=== PATIENT | male | born 1950 | race Caucasian/White ===

== ENCOUNTER → 2024-06-30 | Outpatient (CLI) | payer MEDICARE, SELFPAY ==
--- NOTE | 2024-06-30 07:46 | CT_ITS ---
STUDY: CT ABDOMEN AND PELVIS WITHOUT CONTRAST REASON FOR EXAM: Male, 74 years old. POOR FUNCTIONING DIALYSIS CATH RADIATION DOSAGE (If Supplied By Facility): CTDIvol = ( 21.47 ) mGy, DLP = ( 1132.02 ) mGycm TECHNIQUE: Transaxial images were obtained from the dome of the diaphragm to the symphysis pubis without oral contrast, and without intravenous contrast. Sagittal and coronal images were reconstructed. Individualized dose optimization techniques were used for this CT. COMPARISON: None. FINDINGS: Moderate right pleural effusion and tiny left pleural effusion effusion. The visualized portions of the heart are within normal limits. Tiny amount of free fluid in the paracolic gutters. Normal liver. There are multiple gallstones. Normal spleen. Normal pancreas. Normal bilateral adrenal glands. Normal right kidney. Normal left kidney. Normal visualized stomach. Normal small intestine. There are multiple colonic diverticula consistent with diverticulosis. There is non-visualization of the appendix. There is diffuse atherosclerotic calcification of the abdominal aorta, without a demonstrated aneurysm. Normal inferior vena cava. Normal retroperitoneum. Normal urinary bladder. There is enlargement of the prostate gland. Peritoneal dialysis catheter coiled in the pelvis without surrounding fluid collection to suggest pseudocyst. Normal abdominal wall. Normal osseous structures. CT/Abdomen/Pelvis without Cont IMPRESSION: Moderate right pleural effusion and tiny left pleural effusion. Peritoneal dialysis catheter coiled in the pelvis without evidence of pseudocyst. Tiny amount of ascites. Cholelithiasis. Sigmoid diverticulosis without diverticulitis. Electronically Signed: Roel Chen MD at 13:07 EST ,
== END | disposition home or self-care (01) ==
PROVIDERS: PCP Family Medicine; Referring Provider Student in an Organized Health Care Education/Training Program; Visit Provider Student in an Organized Health Care Education/Training Program
DX: T83.89XA Other specified complication of genitourinary prosthetic devices, implants and grafts, initial encounter (principal)
CPT/HCPCS: 74176

== ENCOUNTER → 2024-08-21 | Outpatient (CLI) | payer MEDICARE, SELFPAY ==
--- NOTE | 2024-08-21 10:15 | MRI_ITS ---
STUDY: MRI LUMBAR SPINE WITHOUT CONTRAST REASON FOR EXAM: Male, 74 years old. RADICULOPATHY TECHNIQUE: Standardized fat and water weighted pulse sequences were obtained in the sagittal and axial planes. COMPARISON: None FINDINGS: T12-L1: Normal endplates. Normal disc height, hydration and morphology. Normal bilateral facet joints. Normal central canal and bilateral lateral recesses. Normal bilateral intervertebral neural foramina. Normal lumbar lordosis. There is no substantial scoliosis. Normal conus medullaris that terminates at the L1-2 level. L1-2: Mild annular bulge.. Normal disc height, hydration and morphology. Normal bilateral facet joints. Normal central canal and bilateral lateral recesses. Normal bilateral intervertebral neural foramina. L2-3: Mild annular bulge causing mild trefoil type narrowing the thecal sac and neural foramina bilaterally. L3-4: Moderate annular bulge and hypertrophic facet disease causing moderate trefoil type narrowing of the thecal sac and neural foramina bilaterally. L4-5: Slight anterior subluxation L4-5 with unroofing of the posterior disc. Fluid-filled hypertrophic facets. Severe trefoil type narrowing of the thecal sac and neural foramina bilaterally. L5-S1: Mild compression fracture and bone marrow edema L5 vertebral body. Moderate narrowing of the neural foramina, right greater than left. Central canal patent. Normal visualized sacral ala. Normal visualized paraspinous soft tissue structures. MRI/Spine Lumbar (Routine) IMPRESSION: Acute or subacute compression fracture L5. Grade 1 spondylolisthesis L4-5 and severe spinal stenosis and neural foraminal narrowing at this level. Moderate spinal stenosis also noted at L3-4. Electronically Signed: John Hoyt MD at 0:12 EST ,
== END | disposition home or self-care (01) ==
LOC: MRI 10:05
PROVIDERS: PCP Family Medicine; Referring Provider Anesthesiology Pain Medicine; Visit Provider Anesthesiology Pain Medicine
DX: M54.16 Radiculopathy, lumbar region (principal)
CPT/HCPCS: 72148

== ENCOUNTER 2024-11-05 14:00 | Outpatient (CLI) | payer MEDICARE, SELFPAY ==
--- NOTE | 2024-11-10 09:13 | EKG12_ITS ---
Test Reason : PRE OP Blood Pressure : */* mmHG Vent. Rate : 74 BPM Atrial Rate : 74 BPM P-R Int : 200 ms QRS Dur : 180 ms QT Int : 462 ms P-R-T Axes : 82 137 -26 degrees QTcB Int : 512 ms Normal sinus rhythm Right bundle branch block Cannot rule out Inferior infarct , age undetermined T wave abnormality, consider lateral ischemia Abnormal ECG Confirmed by YURI PAULINO, ALYSSA ([id number]), food editor CLAYTON CABRALES ([id number]) on 11/10/2024 10:29:44 AM Referred By: Hank Luevano Confirmed By: ALYSSA WELCH MD
--- NOTE | 2024-11-10 09:13 | EKG12_ITS ---
Test Reason : PRE OP Blood Pressure : */* mmHG Vent. Rate : 74 BPM Atrial Rate : 74 BPM P-R Int : 200 ms QRS Dur : 180 ms QT Int : 462 ms P-R-T Axes : 82 137 -26 degrees QTcB Int : 512 ms Normal sinus rhythm Right bundle branch block Cannot rule out Inferior infarct , age undetermined T wave abnormality, consider lateral ischemia Abnormal ECG Confirmed by YURI PAULINO, ALYSSA ([id number]), general expeditor CLAYTON CABRALES ([id number]) on 11/10/2024 10:29:44 AM Referred By: Hank Luevano Confirmed By: ALYSSA WELCH MD
[2024-11-10 10:08] LABS: Absolute Lymphocyte Count 0.87 X10^3/uL (0.83-4.51); Absolute Neutrophil Count 6.3 X10^3/uL (2.0-7.7); Basophil# 0.09 X10^3/uL; Eosinophil# 0.51 X10^3/uL; Eosinophils% 5.9 % (0-5); Hemoglobin 15.6 g/dL (13.0-16.5); Lymphocyte # 0.87 X10^3/ul (0.83-4.51); Mean Corp Hgb Conc 32.5 g/dL (32-36); Mean Corpuscular Hgb 31.8 pg (27.0-32.0); Mean Corpuscular Volume 97.8 fL (80-94); Mean Platelet Vol. 10.3 fl (6.2-12.0); Monocyte# 0.89 X10^3/uL; Monocyte% 10.3 % (0-10); NRBC Flagged by Analyzer 0 % (0-5); Neutrophil # 6.29 X10^3/uL (2.7-7.7); Neutrophil % 72.5 % (47-70); Platelet Count 129 K/mm3 (150-450); RBC Distribution Width CV 14.9 % (11.6-14.6); RBC Distribution Width SD 53.6 fl (35.1-43.9); Red Blood Count 4.91 M/mm3 (4.6-6.2); White Blood Count 8.7 K/mm3 (4.4-11.0)
[2024-11-10 16:06] LABS: Hepatitis C Antibody Nonreactive (Nonreactive)
[2024-11-10 18:48] LABS: BUN 62 mg/dL (4-19); BUN/Creat Ratio 19.1 RATIO (10-20); Calcium,Total 8.8 mg/dL (7.6-11.0); Carbon Dioxide 21.7 mmol/L (21.0-32.0); Creatinine, Serum 3.26 mg/dL (0.70-1.20); Glucose 126 mg/dL (70-99); HIV Nonreactive (Nonreactive)
[2024-11-10 18:49] LABS: Anion Gap 14 (5-15); Chloride 102 mmol/L (98-108); EST Glomerular Filtration Rate 19 (>60); Potassium 4.3 mmol/L (3.3-5.1); Sodium Level 138 mmol/L (133-145)
--- NOTE | 2024-11-10 20:18 | PAT.ANESEVAL ---
Pre-Assessment Diagnosis/Proposed Procedure Planned Operative Procedure(s): 360 Lumbar Fusion L3-4 and L4-5, possible cement augmentation Anesthesia History Anesthesia History - naturopath: Anesthesia History - naturopath Hx Hospitalization Yes 11/05/24 15:36 Any Problems With Anesthesia No 11/05/24 15:36 Cholinesterase deficiency No 11/05/24 15:36 You/Your Family Experience No 11/05/24 15:36 fever (hyperthermia) with Relationship Recent Exposure to Contagious Disease Does patient have nerve No 11/05/24 15:36 stimulator Patient instructed to have device shut off --Does patient have Pacemaker or ICD? When Was Last Pacemaker Check QUESTION #4 FULL TEXT: You/Your Family Experience fever (hyperthermia) with Anesthesia Last Oral Intake Last Oral intake: Last Oral Intake NPO since Meds taken in AM with sips of water? Meds patient instructed to take am of surgery PONV PONV - naturopath: PONV - naturopath Female No 11/05/24 15:36 HX of Motion Sickness No 11/05/24 15:36 HX of N/V After Surgery No 11/05/24 15:36 Non-Smoker Yes 11/05/24 15:36 Duration of Surgery greater Yes 11/05/24 15:36 than 60 minutes Number of Risk Factors 2 11/05/24 15:36 PONV Score Moderate Risk 11/05/24 15:36 Height & Weight Height & Weight: Anesthesia: Height & Weight Height 5 ft 11 in 09/15/24 15:03 Respiratory Assessment Respiratory Assessment - naturopath: Respiratory Tract Infection Hx - naturopath Hx Respiratory Tract Infection No 11/05/24 15:36 STOP Sleep Apnea STOP Sleep Apnea - naturopath: STOP Sleep Apnea - naturopath Hx Hypertension Yes: NO MED SINCE DIALYSIS 11/05/24 15:36 Hx Sleep Apnea Yes 11/05/24 15:36 CPAP Yes 11/05/24 15:36 BIPAP No 11/05/24 15:36 Do you snore loudly (louder than talking or can be heard Do you often feel tired/ fatigued/ sleepy during daytime? Has anyone observed you stop breathing during sleep? STOP Results Positive 11/05/24 15:36 QUESTION #5 FULL TEXT : Do you snore loudly (louder than talking or can be heard through closed doors)? 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 Specify any problems Hx of Preganancy in last 3 N/A 11/05/24 15:36 Months Nurse Filling Out Transfusion [facility] 11/05/24 15:36 & Questions: Date: 11/05/24 11/05/24 15:36 Time: 15:39 11/05/24 15:36 Patient unable to answer at this time (ie. confused, unrespo /Reproduction History /Reproductive History - naturopath: /Reproductive Hx- naturopath Hx Now No 11/05/24 15:36 Gestational Age (in weeks): EDC: Hx Hx Para Hx Section SAB No 11/05/24 15:36 [facility] Medical History (Updated 11/05/24 @ 15:48 by Marcela Negrete) Wears hearing aid Loss of hearing Wears glasses Walker as ambulation aid End stage chronic kidney disease History of renal dialysis History of renal disease High cholesterol Back pain Syncope Former smoker CPAP (continuous positive airway pressure) dependence Sleep apnea Leg cramps History of echocardiogram History of stress test Cardiology follow-up encounter Hypertension Kidney failure Dialysis patient Congestive heart failure Amputation of right foot Diabetes Home Medications ?Medication ?Instructions ?Recorded ?Last Taken ?Type allopurinol 300 mg tablet 300 mg PO DAILY gout 09/15/24 Unknown History atorvastatin 80 mg tablet 80 mg PO QHS HLD 09/15/24 Unknown History carvedilol 6.25 mg tablet 6.25 mg PO BID HEART 09/15/24 Unknown History cholecalciferol (vitamin D3) 25 25 mcg PO QDAY SUPPLEMENT 09/15/24 Unknown History mcg (1,000 unit) tablet clopidogrel 75 mg tablet 300 mg PO DAILY BLOOD THINNER 09/15/24 Unknown History dapagliflozin propanediol 10 mg 10 mg PO DAILY DIABETES 09/15/24 Unknown History tablet (Farxiga) insulin glargine 100 unit/mL 12 unit subcut BID DM 09/15/24 Unknown History subcutaneous solution (Lantus U-100 Insulin) insulin lispro 100 unit/mL 6 unit subcut BID DM 09/15/24 Unknown History subcutaneous solution (Humalog U-100 Insulin) tamsulosin 0.4 mg capsule 0.4 mg PO DAILY BPH 09/15/24 Unknown History tramadol 50 mg tablet 50 mg PO DAILY PAIN 09/15/24 Unknown History multivitamin (Daily Multi-Vitamin 1 tab PO DAILY SUPPLEMENT 11/05/24 Unknown History tablet) Allergy/AdvReac Type Severity Reaction Status Date / Time aspirin Allergy Flares up Verified 11/05/24 15:29 heart Family History Other Diabetes Surgical History (Updated 11/05/24 @ 15:48 by Marcela Negrete) History of cardiac catheterization Social History Smoking Status: Former smoker Audit: Pertinent Findings Pertinent Findings EKG Perinent findings: November 10, 2024. Normal sinus rhythm. Right bundle branch block. Cannot rule out inferior infarct, age undetermined. T wave abnormality consider lateral ischemia. August 27, 2024. Normal sinus rhythm. Right bundle branch block. Possible inferior infarct, age undetermined. Compared to September 2023 T wave inversions now evident in inferior leads. Heart catheterization pertinent findings: October 30, 2023. 60% narrowing of the mid LAD. 80% narrowing of the mid left circumflex. 80% narrowing of the mid RCA. No stents were placed. CABG was indicated. Patient declined. Consult pertinent findings: August 27, 2024. Arturo ABURTO. 1. Three-vessel coronary artery disease-cardiac cath as above. CABG was indicated. Patient declined due to poor surgical candidate related to many comorbidities. Patient elected medical therapy. 2. Carotid artery stenosis-right internal carotid at 60 to 79% stenosis. 3. Chronic kidney failure?stage IV 4. COPD 5. Diabetes type 2 Additional pertinent findings: October 26, 2023. Carotid duplex ultrasound. DIYA at 60 to 79% stenosis. Left internal carotid 20 to 39% stenosis. Recommendation Anesthesia Recommendation Anesthesia recommendation: Anesthesia NOT approved Reason NOT optimized for anesthesia: October 30, 2023. 60% narrowing of the mid LAD. 80% narrowing of the mid left circumflex. 80% narrowing of the mid RCA. No stents were placed. CABG was indicated. Patient declined. Patient is an untreated coronary vasculopath with current ischemia on his EKG.
--- NOTE | 2024-11-10 20:18 | PAT.ANESEVAL ---
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 When Was Last Pacemaker Check QUESTION #4 FULL TEXT: You/Your Family Experience fever (hyperthermia) with Anesthesia Last Oral Intake Last Oral intake: Last Oral Intake NPO since Meds taken in AM with sips of water? 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 Female No 11/05/24 15:36 HX of Motion Sickness No 11/05/24 15:36 HX of N/V After Surgery No 11/05/24 15:36 Non-Smoker Yes 11/05/24 15:36 Duration of Surgery greater Yes 11/05/24 15:36 than 60 minutes Number of Risk Factors 2 11/05/24 15:36 PONV Score Moderate Risk 11/05/24 15:36 Height & Weight Height & Weight: Anesthesia: Height & Weight Height 5 ft 11 in 09/15/24 15:03 Respiratory Assessment Respiratory Assessment - oil well fishing tool technician: Respiratory Tract Infection Hx - oil well fishing tool technician Hx Respiratory Tract Infection No 11/05/24 15:36 STOP Sleep Apnea STOP Sleep Apnea - oil well fishing tool technician: STOP Sleep Apnea - oil well fishing tool technician Hx Hypertension Yes: NO MED SINCE DIALYSIS 11/05/24 15:36 Hx Sleep Apnea Yes 11/05/24 15:36 CPAP Yes 11/05/24 15:36 BIPAP No 11/05/24 15:36 Do you snore loudly (louder than talking or can be heard Do you often feel tired/ fatigued/ sleepy during daytime? Has anyone observed you stop breathing during sleep? STOP Results Positive 11/05/24 15:36 QUESTION #5 FULL TEXT : Do you snore loudly (louder than talking or can be heard through closed doors)? 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 Specify any problems Hx of Preganancy in last 3 N/A 11/05/24 15:36 Months Nurse Filling Out Transfusion [facility] 11/05/24 15:36 & Questions: Date: 11/05/24 11/05/24 15:36 Time: 15:39 11/05/24 15:36 Patient unable to answer at this time (ie. 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: /Reproductive Hx- oil well fishing tool technician Hx Now No 11/05/24 15:36 Gestational Age (in weeks): EDC: Hx Hx Para Hx Section SAB No 11/05/24 15:36 [facility] Medical History (Updated 11/05/24 @ 15:48 by Marcela Negrete) Wears hearing aid Loss of hearing Wears glasses Walker as ambulation aid End stage chronic kidney disease History of renal dialysis History of renal disease High cholesterol Back pain Syncope Former smoker CPAP (continuous positive airway pressure) dependence Sleep apnea Leg cramps History of echocardiogram History of stress test Cardiology follow-up encounter Hypertension Kidney failure Dialysis patient Congestive heart failure Amputation of right foot Diabetes Home Medications ?Medication ?Instructions ?Recorded ?Last Taken ?Type allopurinol 300 mg tablet 300 mg PO DAILY gout 09/15/24 Unknown History atorvastatin 80 mg tablet 80 mg PO QHS HLD 09/15/24 Unknown History carvedilol 6.25 mg tablet 6.25 mg PO BID HEART 09/15/24 Unknown History cholecalciferol (vitamin D3) 25 25 mcg PO QDAY SUPPLEMENT 09/15/24 Unknown History mcg (1,000 unit) tablet clopidogrel 75 mg tablet 300 mg PO DAILY BLOOD THINNER 09/15/24 Unknown History dapagliflozin propanediol 10 mg 10 mg PO DAILY DIABETES 09/15/24 Unknown History tablet (Farxiga) insulin glargine 100 unit/mL 12 unit subcut BID DM 09/15/24 Unknown History subcutaneous solution (Lantus U-100 Insulin) insulin lispro 100 unit/mL 6 unit subcut BID DM 09/15/24 Unknown History subcutaneous solution (Humalog U-100 Insulin) tamsulosin 0.4 mg capsule 0.4 mg PO DAILY BPH 09/15/24 Unknown History tramadol 50 mg tablet 50 mg PO DAILY PAIN 09/15/24 Unknown History multivitamin (Daily Multi-Vitamin 1 tab PO DAILY SUPPLEMENT 11/05/24 Unknown History tablet) Allergy/AdvReac Type Severity Reaction Status Date / Time aspirin Allergy Flares up Verified 11/05/24 15:29 heart Family History Other Diabetes Surgical History (Updated 11/05/24 @ 15:48 by Marcela Negrete) History of cardiac catheterization Social History Smoking Status: Former smoker Audit: Pertinent Findings Pertinent Findings EKG Perinent findings: November 10, 2024. Normal sinus rhythm. Right bundle branch block. Cannot rule out inferior infarct, age undetermined. T wave abnormality consider lateral ischemia. August 27, 2024. Normal sinus rhythm. Right bundle branch block. Possible inferior infarct, age undetermined. Compared to September 2023 T wave inversions now evident in inferior leads. Heart catheterization pertinent findings: October 30, 2023. 60% narrowing of the mid LAD. 80% narrowing of the mid left circumflex. 80% narrowing of the mid RCA. No stents were placed. CABG was indicated. Patient declined. Consult pertinent findings: August 27, 2024. Arturo ABURTO. 1. Three-vessel coronary artery disease-cardiac cath as above. CABG was indicated. Patient declined due to poor surgical candidate related to many comorbidities. Patient elected medical therapy. 2. Carotid artery stenosis-right internal carotid at 60 to 79% stenosis. 3. Chronic kidney failure?stage IV 4. COPD 5. Diabetes type 2 Additional pertinent findings: October 26, 2023. Carotid duplex ultrasound. DIYA at 60 to 79% stenosis. Left internal carotid 20 to 39% stenosis. Recommendation Anesthesia Recommendation Anesthesia recommendation: Anesthesia NOT approved Reason NOT optimized for anesthesia: October 30, 2023. 60% narrowing of the mid LAD. 80% narrowing of the mid left circumflex. 80% narrowing of the mid RCA. No stents were placed. CABG was indicated. Patient declined. Patient is an untreated coronary vasculopath with current ischemia on his EKG.
[2024-11-10 20:51] LABS: Hepatitis B Surface Antibody Nonreactive
[2024-11-11 05:06] LABS: Hepatitis A AB, Total Negative (Negative)
[2024-11-11 12:22] LABS: Hemoglobin A1c 8.7 % (<=5.6)
== END 2024-11-05 19:00 | disposition home or self-care (01) ==
LOC: SDC 06-17 12:21
PROVIDERS: Anesthesiology; PCP Family Medicine; Referring Provider Orthopaedic Surgery Orthopaedic Surgery of the Spine; Visit Provider Orthopaedic Surgery Orthopaedic Surgery of the Spine
DX: Z01.818 Encounter for other preprocedural examination (principal); N18.6 End stage renal disease; E11.22 Type 2 diabetes mellitus with diabetic chronic kidney disease
CPT/HCPCS: 36415; 80048; 83036; 83735; 85025; 86703; 86706; 86708; 86803; 86850; 86900; 86901; 87081; 93005

== ENCOUNTER 2025-06-09 10:47 | Outpatient (CLI) | payer MEDICARE, SELFPAY ==
--- NOTE | 2025-06-09 10:49 | VDUE_ITS ---
Reason For Study Reason For Study: Pre -op AVF Right Lower Arm Left Arm Proximal Radial artery diameter 0.15 x 0.17 mm. Left Brachial artery diameter 0.43 x 0.45 mm. Proximal Radial artery waveform is biphasic . Left Brachial artery waveform is triphasic . Radial A PSV - 20.8 cm/s Brachial A PSV - 64.7 cm/s. Heterogenous irregular plaque noted throughout Radial Cephalic Vein at distal forearm measures 0.22 x 0.22 Artery. cm. Right Arm Cephalic Vein at mid forearm measures 0.23 x 0.26 cm. Right Brachial artery diameter 0.48 x 0.46 mm. Cephalic Vein proximal forearm measures 0.15 x 0.17 Right Brachial artery waveform is triphasic . cm. Brachial A PSV - 47.1 cm/s. Cephalic Vein distal upper arm measures 0.49 x 0.53 Cephalic Vein at distal forearm measures 0.15 x 0.14 cm. cm. Cephalic Vein at mid upper arm measures 0.47 x 0.48 Cephalic Vein at mid forearm measures 0.19 x 0.22 cm. cm. Cephalic Vein proximal forearm measures 0.15 x 0.17 Cephalic Vein at proximal upper arm measures 0.40 x cm. 0.44 cm. Cephalic Vein distal upper arm measures 0.43 x 0.46 Mid Basilic vein measures 0.52 x 0.54 cm. cm. Proximal Basilic vein measures 0.45 x 0.44 cm. Cephalic vein at mid upper arm depth measures 0.40 x Distal Basilic vein measures 0.38 x 0.41 cm. 0.40 cm. Left Lower Arm Cephalic Vein at mid upper arm measures 0.43 x 0.41 Proximal Radial artery diameter 0.14 x 0.16 mm. cm. Proximal Radial artery waveform is triphasic . Proximal Basilic vein depth measures 0.42 x 0.47 cm. Radial A PSV - 43.5 cm/s Mid Basilic vein depth measures 0.41 x 0.43 cm. Heterogenous irregular plaque noted throughout Radial Distal Basilic vein depth measures 0.22 x 0.20 cm. Artery. Procedure This was a bilateral upper extremity venous doppler examination. Exam performed in department. The exam was diagnostic. VL/Dialysis Vein Map PRE-OP BILAT Interpretation Summary Bilateral upper extremity veins patent with measurements above. Bilateral upper extremity veins patent with normal waveforms and measurements a ede. Ordering Physician: Dolores Welsh Referring Physician: Jt Martin Performed By: Param Mosley RVT and Student ???
== END 2025-06-09 23:59 | disposition home or self-care (01) ==
LOC: CVS 10:48
PROVIDERS: PCP Family Medicine; Referring Provider Student in an Organized Health Care Education/Training Program; Visit Provider Student in an Organized Health Care Education/Training Program
DX: Z01.818 Encounter for other preprocedural examination (principal); N17.9 Acute kidney failure, unspecified
CPT/HCPCS: 93985

== ENCOUNTER 2025-07-13 05:52 | Day surgery (SDC) | payer MEDICARE, SELFPAY ==
--- NOTE | 2025-07-01 10:00 | PAT.ANE_ITS ---
Pre-Assessment Diagnosis/Proposed Procedure Planned Operative Procedure(s): RIGHT ARM AV CREATION Anesthesia History Anesthesia History - bed bug exterminator: Anesthesia History - bed bug exterminator Hx Hospitalization Yes: 06/22/25 FOR BRONCHITIS 06/30/25 14:33 Any Problems With Anesthesia Yes: NAUSEA AND DIZZY 06/30/25 14:33 Cholinesterase deficiency No 06/30/25 14:33 You/Your Family Experience No 06/30/25 14:33 fever (hyperthermia) with Relationship Recent Exposure to Contagious Disease Does patient have nerve No 06/30/25 14:33 stimulator Patient instructed to have device shut off --Does patient have Pacemaker or ICD? When Was Last Pacemaker Check QUESTION #4 FULL TEXT: You/Your Family Experience fever (hyperthermia) with Anesthesia Last Oral Intake Last Oral intake: Last Oral Intake NPO since Meds taken in AM with sips of water? Meds patient instructed to take am of surgery PONV PONV - bed bug exterminator: PONV - bed bug exterminator Female No 06/30/25 14:33 HX of Motion Sickness No 06/30/25 14:33 HX of N/V After Surgery No 06/30/25 14:33 Non-Smoker Yes 06/30/25 14:33 Duration of Surgery greater Yes 06/30/25 14:33 than 60 minutes Number of Risk Factors 2 06/30/25 14:33 PONV Score Moderate Risk 06/30/25 14:33 Height & Weight Height & Weight: Anesthesia: Height & Weight Height 5 ft 11 in 06/17/25 15:52 Respiratory Assessment Respiratory Assessment - bed bug exterminator: Respiratory Tract Infection Hx - bed bug exterminator Hx Respiratory Tract Infection No 06/30/25 14:33 STOP Sleep Apnea STOP Sleep Apnea - bed bug exterminator: STOP Sleep Apnea - bed bug exterminator Hx Hypertension Yes: MANY YRS AGO 06/30/25 14:33 Hx Sleep Apnea Yes 06/30/25 14:33 CPAP Yes 06/30/25 14:33 BIPAP No 06/30/25 14:33 Do you snore loudly (louder than talking or can be heard Do you often feel tired/ fatigued/ sleepy during daytime? Has anyone observed you stop breathing during sleep? STOP Results Positive 06/30/25 14:33 QUESTION #5 FULL TEXT : Do you snore loudly (louder than talking or can be heard through closed doors)? Tobacco Use History Tobacco Use History - bed bug exterminator: Tobacco Use History - bed bug exterminator Tobacco Use Smoking Status Former smoker 06/30/25 14:33 Hx Tobacco Use No 06/30/25 14:33 Years Smoking Packs Smoked per Day Smoking Cessation Date was No - quit smoking greater 06/30/25 14:33 within the last 15 years than 15 years ago Hx Smoking Cessation Date 08/20/79 06/30/25 14:33 Hx Smoking Cessation No 06/30/25 14:33 Counseling Hematologic Medial History Hematologic Hx - bed bug exterminator: Hematologic Medical Hx - medicare contact specialist Hx of Blood Transfusion No 06/30/25 14:33 Hx of Transfusion in last 3 No 06/30/25 14:33 Months Date of Last Transfusion (if within last 3 months) Ever experience any problems No 06/30/25 14:33 with transfusion(s)? Specify any problems Hx of Preganancy in last 3 N/A 06/30/25 14:33 Months Nurse Filling Out Transfusion DSCHRIBER 06/30/25 14:33 & Questions: Date: 06/30/25 06/30/25 14:33 Time: 14:35 06/30/25 14:33 Patient unable to answer at this time (ie. confused, unrespo /Reproduction History /Reproductive History - bed bug exterminator: /Reproductive Hx- bed bug exterminator Hx Now No 06/30/25 14:33 Gestational Age (in weeks): EDC: Hx Hx Para Hx Section SAB No 06/30/25 14:33 Does the father of the baby or his family experience fever w Father of the baby Malignant Hypertension history comment [facility] [place] Medical History (Updated 06/30/25 @ 14:46 by Kirstin Aguiar) Insulin dependent diabetes mellitus Low iron Restless legs Injury of back Dietary restriction Gastric reflux On home oxygen therapy Shortness of breath on exertion History of pain when walking History of pacemaker Wears hearing aid Wears glasses Walker as ambulation aid History of renal dialysis History of renal disease High cholesterol Syncope Former smoker CPAP (continuous positive airway pressure) dependence Leg cramps History of echocardiogram History of stress test Cardiology follow-up encounter Hypertension Kidney failure Dialysis patient Congestive heart failure Amputation of right foot Home Medications ?Medication ?Instructions ?Recorded ?Last Taken ?Type atorvastatin 80 mg tablet 80 mg PO QHS HLD 09/15/24 Un known History cholecalciferol (vitamin D3) 25 25 mcg PO QDAY SUPPLEM ENT 09/15/24 Unknown History mcg (1,000 unit) tablet insulin glargine 100 unit/mL 12 unit subcut BID DM Unknown History subcutaneous solution (Lantus U-100 Insulin) insulin lispro 100 unit/mL 6 unit subcut BID DM Unknown History subcutaneous solution (Humalog U-100 Insulin) tamsulosin 0.4 mg capsule 0.4 mg PO QHS BPH 09/15/24 U nknown History multivitamin (Daily Multi-Vitamin 1 tab PO DAILY SUPPL EMENT 11/05/24 Unknown History tablet) aspirin 81 mg tablet,delayed 81 mg PO QDAY 06/17/25 Un known History release (Adult Aspirin Regimen) clopidogrel 75 mg tablet 75 mg PO DAILY BLOOD THINNER 06/17/25 Unknown History pantoprazole 20 mg tablet,delayed 20 mg PO QDAY Unknown History release karlos-rissa 1 tab PO QDAY 06/17/25 Unkno wn History albuterol sulfate 90 mcg/actuation 1 inh inhalation Q4 H PRN shortness 06/30/25 Unknown History aerosol inhaler (Ventolin HFA) of breath or wheezing sulfamethoxazole 800 1 tab PO Q12H 06/30/25 Unkno wn History mg-trimethoprim 160 mg tablet Allergy/AdvReac Type Severity Reaction Status Date / Time aspirin Allergy Flares up Verified 06/30/25 14:28 heart Family History Other Diabetes Surgical History (Updated 06/30/25 @ 14:46 by Kirstin Aguiar) Hx of right cataract extraction Hx of left cataract extraction Hx of foot surgery History of implantable cardiac defibrillator (ICD) History of open heart surgery History of cardiac catheterization Social History Smoking Status: Former smoker Audit: Pertinent Findings HISTORY of Pertinent Findings History of Pertinent Findings: Patient had CABG + valve repair on 01/06/25. Pacer - ICD for complete heart block placed 05/26/2025 Pertinent Findings EKG Perinent findings: 05/2025: Ventricular paced rhythm Stress test pertinent findings: 11/2024: Negative stress test Echo (EF%) pertinent findings: 05/2025: EF 32%, moderately severe MVR, LV mildly dilated,, mild concentric LVH. 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 LV moderately dilated, systolic function severely decreased. RV mildly dilated. Additional pertinent findings: Right ICA 60-79% stenosis, Left 20-39% Recommendation Anesthesia Recommendation Anesthesia recommendation: F/U recommended (Cardiac clearance for procedure)
--- NOTE | 2025-07-08 15:26 | PAT.ANESEVAL ---
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 When Was Last Pacemaker Check QUESTION #4 FULL TEXT: You/Your Family Experience fever (hyperthermia) with Anesthesia Last Oral Intake Last Oral intake: Last Oral Intake NPO since Meds taken in AM with sips of water? Meds patient instructed to take am of surgery PONV PONV - registered nurses: PONV - registered nurses Female No 06/30/25 14:33 HX of Motion Sickness No 06/30/25 14:33 HX of N/V After Surgery No 06/30/25 14:33 Non-Smoker Yes 06/30/25 14:33 Duration of Surgery greater Yes 06/30/25 14:33 than 60 minutes Number of Risk Factors 2 06/30/25 14:33 PONV Score Moderate Risk 06/30/25 14:33 Height & Weight Height & Weight: Anesthesia: Height & Weight Height 5 ft 11 in 06/17/25 15:52 Respiratory Assessment Respiratory Assessment - registered nurses: Respiratory Tract Infection Hx - registered nurses Hx Respiratory Tract Infection No 06/30/25 14:33 STOP Sleep Apnea STOP Sleep Apnea - registered nurses: STOP Sleep Apnea - registered nurses Hx Hypertension Yes: MANY YRS AGO 06/30/25 14:33 Hx Sleep Apnea Yes 06/30/25 14:33 CPAP Yes 06/30/25 14:33 BIPAP No 06/30/25 14:33 Do you snore loudly (louder than talking or can be heard Do you often feel tired/ fatigued/ sleepy during daytime? Has anyone observed you stop breathing during sleep? STOP Results Positive 06/30/25 14:33 QUESTION #5 FULL TEXT : Do you snore loudly (louder than talking or can be heard through closed doors)? Tobacco Use History Tobacco Use History - registered nurses: Tobacco Use History - registered nurses Tobacco Use Smoking Status Former smoker 06/30/25 14:33 Hx Tobacco Use No 06/30/25 14:33 Years Smoking Packs Smoked per Day Smoking Cessation Date was No - quit smoking greater 06/30/25 14:33 within the last 15 years than 15 years ago Hx Smoking Cessation Date 08/20/79 06/30/25 14:33 Hx Smoking Cessation No 06/30/25 14:33 Counseling Hematologic Medial History Hematologic Hx - registered nurses: Hematologic Medical Hx - training and documentation specialist Hx of Blood Transfusion No 06/30/25 14:33 Hx of Transfusion in last 3 No 06/30/25 14:33 Months Date of Last Transfusion (if within last 3 months) Ever experience any problems No 06/30/25 14:33 with transfusion(s)? Specify any problems Hx of Preganancy in last 3 N/A 06/30/25 14:33 Months Nurse Filling Out Transfusion DSCHRIBER 06/30/25 14:33 & Questions: Date: 06/30/25 06/30/25 14:33 Time: 14:35 06/30/25 14:33 Patient unable to answer at this time (ie. confused, unrespo /Reproduction History /Reproductive History - registered nurses: /Reproductive Hx- registered nurses Hx Now No 06/30/25 14:33 Gestational Age (in weeks): EDC: Hx Hx Para Hx Section SAB No 06/30/25 14:33 Does the father of the baby or his family experience fever w Father of the baby Malignant Hypertension history comment [facility] Medical History (Updated 06/30/25 @ 14:46 by Kirstin Aguiar) Insulin dependent diabetes mellitus Low iron Restless legs Injury of back Dietary restriction Gastric reflux On home oxygen therapy Shortness of breath on exertion History of pain when walking History of pacemaker Wears hearing aid Wears glasses Walker as ambulation aid History of renal dialysis History of renal disease High cholesterol Syncope Former smoker CPAP (continuous positive airway pressure) dependence Leg cramps History of echocardiogram History of stress test Cardiology follow-up encounter Hypertension Kidney failure Dialysis patient Congestive heart failure Amputation of right foot Home Medications ?Medication ?Instructions ?Recorded ?Last Taken ?Type atorvastatin 80 mg tablet 80 mg PO QHS HLD 09/15/24 Unknown History cholecalciferol (vitamin D3) 25 25 mcg PO QDAY SUPPLEMENT 09/15/24 Unknown History mcg (1,000 unit) tablet insulin glargine 100 unit/mL 12 unit subcut BID DM 09/15/24 Unknown History subcutaneous solution (Lantus U-100 Insulin) insulin lispro 100 unit/mL 6 unit subcut BID DM 09/15/24 Unknown History subcutaneous solution (Humalog U-100 Insulin) tamsulosin 0.4 mg capsule 0.4 mg PO QHS BPH 09/15/24 Unknown History multivitamin (Daily Multi-Vitamin 1 tab PO DAILY SUPPLEMENT 11/05/24 Unknown History tablet) aspirin 81 mg tablet,delayed 81 mg PO QDAY 06/17/25 Unknown History release (Adult Aspirin Regimen) clopidogrel 75 mg tablet 75 mg PO DAILY BLOOD THINNER 06/17/25 Unknown History pantoprazole 20 mg tablet,delayed 20 mg PO QDAY 06/17/25 Unknown History release kalros-rissa 1 tab PO QDAY 06/17/25 Unknown History albuterol sulfate 90 mcg/actuation 1 inh inhalation Q4H PRN shortness 06/30/25 Unknown History aerosol inhaler (Ventolin HFA) of breath or wheezing sulfamethoxazole 800 1 tab PO Q12H 06/30/25 Unknown History mg-trimethoprim 160 mg tablet Allergy/AdvReac Type Severity Reaction Status Date / Time aspirin Allergy Flares up Verified 06/30/25 14:28 heart Family History Other Diabetes Surgical History (Updated 06/30/25 @ 14:46 by Kirstin Aguiar) Hx of right cataract extraction Hx of left cataract extraction Hx of foot surgery History of implantable cardiac defibrillator (ICD) History of open heart surgery History of cardiac catheterization Social History Smoking Status: Former smoker Audit: Pertinent Findings HISTORY of Pertinent Findings History of Pertinent Findings: EKG Pertinent Findings EKG Perinent findings 05/2025: Ventricular paced 07/01/25 10:08 rhythm Stress Test Pertinent Findings Stress test pertinent findings 11/2024: Negative stress test 07/01/25 10:08 Echo Pertinent Findings Echo (EF%) pertinent findings 05/2025: EF 32%, moderately 07/01/25 10:08 severe MVR, LV mildly dilated,, mild concentric LVH. Severe multivessel CAD with elevated biventricular filling pressures with both pre and post-capillary pulm HTN Heart Catheterization Pertinent Findings Heart catheterization 11/2024: LHC showed: LAD 07/01/25 10:08 pertinent findings narrow 70% focal disease, LCx 80%, RCA 70% blockages Consult Pertinent Findings Consult pertinent findings 12/2024: Moderate ischemia in 07/01/25 10:08 LCX, mild ischemia in LAD and RCA, and transient ischemic dilation of LV cavity with stress. LV moderately dilated, systolic function severely decreased . RV mildly dilated. Additional Pertinent Findings Additional pertinent findings Right ICA 60-79% stenosis, 07/01/25 10:08 Left 20-39% Pertinent Findings Consult pertinent findings: 07/02/2025. Dr. Alexander?cardiology. Patient is cleared for scheduled procedure with MAC anesthesia. No further testing needed. Recommendation Anesthesia Recommendation Anesthesia recommendation: OPTIMIZED for anesthesia
--- NOTE | 2025-07-10 15:16 | PAT.ANE_ITS ---
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 When Was Last Pacemaker Check QUESTION #4 FULL TEXT: You/Your Family Experience fever (hyperthermia) with Anesthesia Last Oral Intake Last Oral intake: Last Oral Intake NPO since Meds taken in AM with sips of water? Meds patient instructed to take am of surgery PONV PONV - cover mat machine operator: PONV - cover mat machine operator Female No 06/30/25 14:33 HX of Motion Sickness No 06/30/25 14:33 HX of N/V After Surgery No 06/30/25 14:33 Non-Smoker Yes 06/30/25 14:33 Duration of Surgery greater Yes 06/30/25 14:33 than 60 minutes Number of Risk Factors 2 06/30/25 14:33 PONV Score Moderate Risk 06/30/25 14:33 Height & Weight Height & Weight: Anesthesia: Height & Weight Height 5 ft 11 in 06/17/25 15:52 Respiratory Assessment Respiratory Assessment - cover mat machine operator: Respiratory Tract Infection Hx - cover mat machine operator Hx Respiratory Tract Infection No 06/30/25 14:33 STOP Sleep Apnea STOP Sleep Apnea - cover mat machine operator: STOP Sleep Apnea - cover mat machine operator Hx Hypertension Yes: MANY YRS AGO 06/30/25 14:33 Hx Sleep Apnea Yes 06/30/25 14:33 CPAP Yes 06/30/25 14:33 BIPAP No 06/30/25 14:33 Do you snore loudly (louder than talking or can be heard Do you often feel tired/ fatigued/ sleepy during daytime? Has anyone observed you stop breathing during sleep? STOP Results Positive 06/30/25 14:33 QUESTION #5 FULL TEXT : Do you snore loudly (louder than talking or can be heard through closed doors)? Tobacco Use History Tobacco Use History - cover mat machine operator: Tobacco Use History - cover mat machine operator Tobacco Use Smoking Status Former smoker 06/30/25 14:33 Hx Tobacco Use No 06/30/25 14:33 Years Smoking Packs Smoked per Day Smoking Cessation Date was No - quit smoking greater 06/30/25 14:33 within the last 15 years than 15 years ago Hx Smoking Cessation Date 08/20/79 06/30/25 14:33 Hx Smoking Cessation No 06/30/25 14:33 Counseling Hematologic Medial History Hematologic Hx - cover mat machine operator: Hematologic Medical Hx - rn clinical documentation specialist Hx of Blood Transfusion No 06/30/25 14:33 Hx of Transfusion in last 3 No 06/30/25 14:33 Months Date of Last Transfusion (if within last 3 months) Ever experience any problems No 06/30/25 14:33 with transfusion(s)? Specify any problems Hx of Preganancy in last 3 N/A 06/30/25 14:33 Months Nurse Filling Out Transfusion DSCHRIBER 06/30/25 14:33 & Questions: Date: 06/30/25 06/30/25 14:33 Time: 14:35 06/30/25 14:33 Patient unable to answer at this time (ie. confused, unrespo /Reproduction History /Reproductive History - cover mat machine operator: /Reproductive Hx- cover mat machine operator Hx Now No 06/30/25 14:33 Gestational Age (in weeks): EDC: Hx Hx Para Hx Section SAB No 06/30/25 14:33 Does the father of the baby or his family experience fever w Father of the baby Malignant Hypertension history comment Active Medications Active Medications: Current Medications Generic Name Dose Route Start Last Admin Trade Name Freq PRN Reason Stop Dose Admin Cefazolin Sodium 3 gm/ Sodium 115 mls @ 200 mls/hr 07/13/25 07:00 Chloride IV 07/13/25 07:34 INTRAOP ONE [facility] Medical History (Updated 06/30/25 @ 14:46 by Kirstin Aguiar) Insulin dependent diabetes mellitus Low iron Restless legs Injury of back Dietary restriction Gastric reflux On home oxygen therapy Shortness of breath on exertion History of pain when walking History of pacemaker Wears hearing aid Wears glasses Walker as ambulation aid History of renal dialysis History of renal disease High cholesterol Syncope Former smoker CPAP (continuous positive airway pressure) dependence Leg cramps History of echocardiogram History of stress test Cardiology follow-up encounter Hypertension Kidney failure Dialysis patient Congestive heart failure Amputation of right foot Home Medications ?Medication ?Instructions ?Recorded ?Last Taken ?Type atorvastatin 80 mg tablet 80 mg PO QHS HLD 09/15/24 Un known History cholecalciferol (vitamin D3) 25 25 mcg PO QDAY SUPPLEM ENT 09/15/24 Unknown History mcg (1,000 unit) tablet insulin glargine 100 unit/mL 12 unit subcut BID DM Unknown History subcutaneous solution (Lantus U-100 Insulin) insulin lispro 100 unit/mL 6 unit subcut BID DM Unknown History subcutaneous solution (Humalog U-100 Insulin) tamsulosin 0.4 mg capsule 0.4 mg PO QHS BPH 09/15/24 U nknown History multivitamin (Daily Multi-Vitamin 1 tab PO DAILY SUPPL EMENT 11/05/24 Unknown History tablet) aspirin 81 mg tablet,delayed 81 mg PO QDAY 06/17/25 Un known History release (Adult Aspirin Regimen) clopidogrel 75 mg tablet 75 mg PO DAILY BLOOD THINNER 06/17/25 Unknown History pantoprazole 20 mg tablet,delayed 20 mg PO QDAY Unknown History release karlos-rissa 1 tab PO QDAY 06/17/25 Unkno wn History albuterol sulfate 90 mcg/actuation 1 inh inhalation Q4 H PRN shortness 06/30/25 Unknown History aerosol inhaler (Ventolin HFA) of breath or wheezing sulfamethoxazole 800 1 tab PO Q12H 06/30/25 Unkno wn History mg-trimethoprim 160 mg tablet Allergy/AdvReac Type Severity Reaction Status Date / Time aspirin Allergy Flares up Verified 06/30/25 14:28 heart Family History Other Diabetes Surgical History (Updated 06/30/25 @ 14:46 by Kirstin Aguiar) Hx of right cataract extraction Hx of left cataract extraction Hx of foot surgery History of implantable cardiac defibrillator (ICD) History of open heart surgery History of cardiac catheterization Social History Smoking Status: Former smoker Audit: Pertinent Findings HISTORY of Pertinent Findings History of Pertinent Findings: EKG Pertinent Findings EKG Perinent findings 05/2025: Ventricular paced 07/01/25 10:08 rhythm Stress Test Pertinent Findings Stress test pertinent findings 11/2024: Negative stress test 07/01/25 10:08 Echo Pertinent Findings Echo (EF%) pertinent findings 05/2025: EF 32%, moderately 07/01/25 10:08 severe MVR, LV mildly dilated,, mild concentric LVH. Severe multivessel CAD with elevated biventricular filling pressures with both pre and post-capillary pulm HTN Heart Catheterization Pertinent Findings Heart catheterization 11/2024: LHC showed: LAD 07/01/25 10:08 pertinent findings narrow 70% focal disease, LCx 80%, RCA 70% blockages Consult Pertinent Findings Consult pertinent findings 07/02/2025. Dr. Alexander? 07/08/25 15:35 cardiology. Patient is cleared for scheduled procedure with MAC anesthesia. No further testing needed. Consult pertinent findings 12/2024: Moderate ischemia in 07/01/25 10:08 LCX, mild ischemia in LAD and RCA, and transient ischemic dilation of LV cavity with stress. LV moderately dilated, systolic function severely decreased . RV mildly dilated. Additional Pertinent Findings Additional pertinent findings Right ICA 60-79% stenosis, 07/01/25 10:08 Left 20-39% Recommendation Anesthesia Recommendation Anesthesia recommendation: OPTIMIZED for anesthesia
[2025-07-13] VITALS (27 sets, daily range): BP systolic 81–114; BP diastolic 31–64; PULSE 82–92; RESP 12–24; TEMP 36.1–36.8; O2SAT 92–99; BMI 34.5
--- OUTSIDE RECORDS SUMMARY | 2025-07-13 05:58 | XMS RPT_ITS | CCD ---
Author Organization [facility] Care Team Providers Care Branch Specialist Name Role Phone Moises Prater Primary Care Provider MOISES PRATER Primary Care Unavailable Rakan Amaro Admitting Rakan Henry Attending Moises Olson Primary Care Provider Moises Prater Primary Care Provider 1( [phone] Moises Prater Primary Care Provider 1( [phone] MOI PAULINO, DR MOISES Castillo Primary Care Physician Moises Prater Primary Care Provider DOMINGA PAULINO, DR BECERRA Attending Elo NIX MD, DR MONTEZ Dominguez Admitting Felipe PRATER MD, DR MOISES Castillo Primary Care Unavailstanislaw PRATER MD, DR MOISES Castillo Consulting Unavailstanislaw JONES MD, DR NABIL BROWN Attending Yajaira PRATER MD, DR MOISES Castillo Primary Care Unavaila WILLIAM Taylor DO Attending Elo PRATER MD, DR MOISES Castillo Primary Care Unavailstanislaw JONES MD, DR NABIL BROWN Attending SUZAN Troncoso MD Consulting Elo PRATER MD, DR MOISES Castillo Primary Care UnavailASAD Bauer DO Consulting Jose Ramon JONES MD, DR NABIL BROWN Attending Yajaira PRATER MD, DR MOISES Castillo Primary Care Unavaila CRYSTAL Underwood V Attending Unavailable CRYSTAL BAUER V Attending Unavailable MOISES PRATER Attending Unavailable VICK ROSE Consulting Unavailable CRYSTAL BAUER V Attending Unavailable SARA HAY Consulting Unavailable HARISH BURROWS Consulting Unavailable MELONIE DOUGLASS M.D. Admitting Unavaila ble MELONIE DOUGLASS M.D. Attending Unavaila ble CRYSTAL BAUER V Attending Unavailable Moi PAULINO, [facility] Primary Care Provider [place] Tristan HERNÁNDEZ Unavailable [facility] Unavaila ble VELVET LUIS Admitting Unavailable VELVET LUIS Attending Unavailable SHERITA BETANCOURT Referring Un[facility] AKHIL JUAN Attending Unavailable [facility] Unavail[facility] ble AKHIL JUAN Attending Unavailable Moi PAULINO, [facility] Care Provider Tristan Alexander DO Unavailable [phone] Lilian PAULINO, Arabellaam Unavailable A, [facility] Clinical Clinical Psychology Professor/Pa Unavailable Unavailabl e Stanislaw, Hvi Clinical Clinical Psychology Professor/Pa Unavailable Unavailabl e Lilian PAULINO, Haytham Unavailable Unavailab le POOMMIMEÑO SHUKRI Referring Unavailable [facility] Unavaila ble SARA, CLAIRE N Referring Unavailable [facility] Unavail[facility] ble ELGHARAMIMI MEAD Referring Unavailable [facility]av[facility] ble MIMI WATT Referring Unavailable KHOT, CLAIRE N Attending Unavailable [facility] Unavaila ble JEMIMA DUKE Attending Unavailable AMAIRANI CHUN Referring Unavailable [facility] Unavaila ble ALLAN CHRISTIANSON Referring Unavailable POOMMIPANITSHUKRI Referring Unavailable [facility] Unavaila ble KANJackson, MOHAMED H Admitting Unavailable KATELIN CISNEROS Consulting Unavailable ANTELMO CARDOZA Attending Unavailable [facility] Unavaila ble POOMMIPANIT SHUKRI Referring Unavailable [facility] Unavaila ble POOMMIPANITSHUKRI Attending Unavailable MOI, [facility] Care Unavaila ble POOMMIPANSHUKRI HENRIQUEZ Attending Unavailable MOI, [facility] Care Unavaila ble ELVIA, RK Admitting Unavailable ELVIA, RK Attending Unavailable TRISTAN ALEXANDER Consulting Unavailable MARIELLA, MANSOOR Attending Unavailable MOI, [facility] Care Unavaila ble MARIELLA, MANSOOR Referring Unavailable MOI, [facility] Primary Care Unavaila ble CHEIKH CONTI Attending Unavailable MOI, [facility] Primary Care Unavaila ble DOMINGO MONSALVE Referring Unavailable MOI, [facility] Care Unavaila ble MOI, [facility] Primary Care Unavaila ble SWOGER, CRYSTAL JIMENEZ Attending Unavaila ble HECTOR FOX Referring Unavailable MOI, [facility] Care Unavaila ble MOI, [facility] Care Unavaila ble SARA HAY Attending Un[facility] Un[facility] Bucktowarsing, Bhavnish Attending Unavaila ble Bucktowarsing, Bhavnish Referring Unavaila ble [place], [facility] Care Unavailable Spencer Townsend Attending Unavailable JazmineHarleenl Attending Unavailable [place], [facility] Primary Care Unavailable Spencer Townsend Attending Unavailable [place], [facility] Primary Care Unavailable Luevano, Hank Referring Unavailable Jazmine Arvin Attending Unavailable [place], [facility] Primary Care Unavailable Spencer Townsend Attending Unavailable [place], [facility] Primary Care Unavailable Moi, Moises Referring Unavailable Moi, Moises Referring Unavailable Luevano, Hank Attending Unavailable Moi, [facility] Primary Care Unavailable Luevano, Hank Admitting Unavailable Luevano, Hank Attending Unavailable Luevano, Hank Referring Unavailable Moi, [facility] Primary Care Unavailable Basali, Ayman Attending Unavailable Basali, Ayman Referring Unavailable [place], [facility] Primary Care Unavailable SPENCER TOWNSEND MD Attending Unavailable MOISES PRATER MD Consulting Unavailable SPENCER TOWNSEND MD Admitting Unavailable SPENCER TOWNSEND MD Primary Care Unavailable PROVIDER, UNKNOWN Consulting Unavailable PROVIDER, UNKNOWN Consulting Unavailable PROVIDER, UNKNOWN Consulting Unavailable Allergies Allergy Classification Reported Allergen(s) Allergy Type Date of Onset Reaction(s) Facility (4 sources) Aluminum aspirin; Translations: [ASPIRIN] Drug Allergy [address] [facility] Work Phone: (20 sources) amLODIPine; Translations: [amlodipine] Drug Allergy 1 Swelling, Decreased renal function (finding) [facility] Comment on above: Decreased renal func tion (20 sources) Aspirin; Translations: [aspirin] Drug Allergy 0 Other: See Comments, Tachycardia (finding) [facility] (20 sources) liraglutide; Translations: [LIRAGLUTIDE] Drug Allergy 1 Other: See Comments [facility] (20 sources) metFORMIN; Translations: [metformin] Drug Allergy 5 Decreased renal function (finding), Intolerance [facility] (20 sources) Clams; Translations: [CLAMS] Food allergy 5 Unknown [facility] (1 source) KIWI; Translations: [KIWI] Propensity to adverse reactions to drug (disorder) 5 [facility] Other [place] [facility] (1 source) Aspirin Drug Allergy 5 [facility] (1 source) Aspirin Drug Allergy [facility] (1 source) metFORMIN Drug Allergy [facility] Medications Current Medications Medication Drug Class(es) Dates Sig (Normalized) Sig (Original) acetaminophen 325 mg oral tablet (10 sources) Start: 01-21-2025 take 2 tablets by mouth every four hours as needed acetaminophen (TYLENOL) 325 mg tablet Take 2 tablets by mouth every 4 hours as needed for pain. 01/21/2025 Active Start: 09-04-2018 take 2 tablets by [facility] every four hours as needed 650 mg, Oral, EVERY 4 HOURS NEEDED, Starting 09/04/18 at 2017, Until Discontinued, Mild Pain, Moderate Pain Maximum dose of acetaminophen is 4000 mg from all sources in 24 hours. acetaminophen 325 mg / HYDROcodone bitartrate 5 mg oral tablet (1 source) Opioid Agonist Start: 01-23-2023 End: 01-26-2023 take 1 tablet by mouth every six hours as needed for pain [place] 325- 5 mg oral tablet Dose = 1 tab(s), Oral, q6h, PRN for pain, X 3 day(s), # 12 tab(s), 0 Refill(s), Pharmacy: [facility], Acute post-operative pain, 180.3, cm, 01/23/23 7:28:00 EDT, Height, 107.6 Start Date: 01/23/23 Stop Date: 01/26/23 Status: Ordered albuterol 0.83 mg/ml inhalation solution (20 sources) beta2-Adrener gic Agonist Start: 01-21-2025 take 2.5 mg by inhalation every four hours as needed albuterol (PROVENTIL) 2.5 mg /3 mL (0.083 %) nebulizer solution Use 3 mL via nebulizer every 4 hours as needed for wheezing/shortness of breath. 01/21/2025 Active Start: 01-20-2021 End: 02-21-2023 take 1-2 puff(s) by inhalation every four hours as needed for wheezing albuterol HFA (PROVENTIL HFA, VENTOLIN HFA) 90 mcg/actuation inhaler INHALE 1-2 PUFFS INTO LUNGS EVERY FOUR HOURS NEEDED FOR SHORTNESS OF BREATH/WHEEZING 0 01/20/2021 02/21/2023 Discontinued (Course of therapy completed) Comment on above: INHALE 1-2 PUFFS INT O LUNGS EVERY FOUR HOURS NEEDED FOR SHORTNESS OF BREATH/WHEEZING aluminum hydroxide 40 mg/ml / magnesium hydroxide 40 mg/ml / simethicone 4 mg/ml oral suspension (9 sources) Start: take 30 mL by mouth every four hours as needed aluminum-magnesium hydroxide-simethicone 200-200-20 mg/5 mL suspension Take 30 mL by mouth every 4 hours as needed (Second Line Therapy). 01/21/2025 Active aspirin 81 mg chewable tablet (9 sources) Platelet Aggregation Inhibitor, Nonsteroidal Anti-inflammatory Drug Start: 025 take 1 tablet by mouth once daily aspirin 81 mg chewable tablet Take 1 tablet by mouth once daily. 01/22/2025 Active atorvastatin 80 mg oral tablet (20 sources) HMG-CoA Reductase Inhibitor Start: 024 End: 026 take 1 tablet by mouth once daily at bedtime atorvastatin (LIPITOR) 80 mg tablet Indications: Hyperlipidemia LDL goal Take 1 tablet by mouth daily at bedtime. 90 tablet 3 01/21/2025 01/16/2026 Active Comment on above: Take 1 tablet by bhupendra th daily at bedtime. B Complex-Vitamin C-Folic Acid (LENA-VIT) 0.8 mg tab (9 sources) Start: 025 take 1 tablet by mouth once daily B Complex-Vitamin C-Folic Acid (LENA-VIT) 0.8 mg tab Take 1 tablet by mouth once daily. 01/22/2025 Active calcitriol 0.0005 mg oral capsule (2 sources) Vitamin D3 Analog Start: calcitriol 0.5 mcg oral capsule Dose : 0.5 mcg = 1 cap(s), Oral, Daily, 0 Refill(s) Start Date: 12/18/22 Status: Ordered cefdinir 300 mg oral capsule (1 source) Cephalosporin Antibacterial Start: End: cefdinir 300 mg oral capsule Dose : 300 mg = 1 cap(s), Oral, qDay, X 7 day(s), # 7 cap(s), 0 Refill(s), 10/12/22 8:40:00 EST, Pharmacy: [facility], 180.3, cm, 10/02/22 19:14:00 EST, Height, 121.6 Start Date: 10/05/22 Stop Date: 10/12/22 Status: Ordered clopidogrel 75 mg oral tablet (20 sources) P2Y12 Platelet Inhibitor Start: 024 End: 026 take 1 tablet by mouth once daily in the morning clopidogrel (PLAVIX) 75 mg tablet Indications: Coronary artery disease involving [place] coronary artery of [place] heart without angina pectoris Take 1 tablet by mouth every morning. 90 tablet 3 01/21/2025 01/16/2026 Active Comment on above: Take 1 tablet by bhupendra th every morning. CPAP (20 sources) CPAP 1 Each by M ask route daily at bedtime. [employer] Suspended CPAP 1 Each by M ask route daily at bedtime. [employer] Active CPAP 1 Each by M ask route daily at bedtime. [employer] 0 Active Comment on above: 1 Each by Mask route daily at bedtime. [employer] diclofenac sodium 0.01 mg/mg topical gel (9 sources) Nonsteroidal Anti-inflammatory Drug Start: apply 2 g topically four times daily diclofenac (VOLTAREN) 1 % topical gel Apply 2 g to affected area four times daily. 01/21/2025 Active docusate sodium 50 mg / sennosides, [facility] 8.6 mg oral tablet (9 sources) Start: 5 take 2 tablets by mouth twice daily senna-docusate (SENNA-S) 8.6-50 mg per tablet Take 2 tablets by mouth two times a day. 01/21/2025 Active 0.4 ml enoxaparin sodium 100 mg/ml prefilled syringe (1 source) Low Molecular Weight Heparin Start: 9 enOXAParin (LOVENOX) injection 40 mg gentamicin 1 mg/ml topical cream (3 sources) Start: 5 End: 5 gentamicin 0.1% 0.1 % cream Apply to affected area once daily. 01/21/2025 02/20/2025 Active glipiZIDE 10 mg oral tablet (20 sources) Sulfonylurea Start: 3 glipiZIDE 10 mg oral tablet Dose : 10 mg = 1 tab(s), Oral, BIDAC Start Date: 01/03/23 Status: Ordered Start: 10-02-2022 glipiZIDE 10 m g oral tablet Dose : 10 mg = 1 tab(s), Oral, BIDAC, 0 Refill(s) Start Date: 10/02/22 Status: Ordered Start: 03-08-2020 End: 10-02-2023 take 2 tablets by mouth twice daily glipiZIDE (GLUCOTROL) 5 mg tablet Take 10 mg by mouth twice daily. 0 03/08/2020 10/02/2023 Discontinued (Discontinued by Patient) take 1 tablet by bhupendra th twice daily glipiZIDE 5 MG tablet regular release Take 5 mg by mouth 2 times daily. Active Comment on above: Take 10 mg by mouth twice daily. glucose 0.45 mg/mg oral gel (9 sources) Start: 01-21-2025 dextrose (TRUEPLUS) 15 gram/32 mL oral gel Take 32 mL by mouth as needed. 01/21/2025 Active hydrALAZINE hydrochloride 10 mg oral tablet (20 sources) Arteriolar Vasodilator Start: 01-03-2023 hydrALAZINE 10 mg oral tablet Dose : 10 mg = 1 tab(s), Oral, BID Start Date: 01/03/23 Status: Ordered Start: 12-28-2022 hydrALAZINE 10 mg oral tablet Dose : 10 mg = 1 tab(s), Oral, BID, # 60 tab(s), 0 Refill(s) Start Date: 12/28/22 Status: Ordered Start: 10-30-2022 End: 10-02-2023 take 1 tablet by mouth twice daily at mealtime hydrALAZINE (APRESOLINE) 50 mg tablet Take 1 tablet by mouth twice daily with meals. 60 tablet 11 10/30/2022 10/02/2023 Discontinued (Discontinued by Patient) Start: 10-05-2022 End: 10-05-2022 hydrALAZINE Start: 10/05/22 9:00:00 EST, Dose = 50 mg, = 1 tab(s), Oral, Hold if SBP (mmHg) Start Date: 10/05/22 Stop Date: 10/05/22 Status: Completed Start: 05-24-2022 End: 10-30-2022 take 1 tablet by mouth three times daily hydrALAZINE (APRESOLINE) 50 mg tablet Take 1 tablet by mouth three times daily. 90 tablet 5 10/30/2022 10/30/2022 Discontinued Start: 11-21-2021 End: 12-12-2021 take 1 tablet by mouth twice daily hydrALAZINE (APRESOLINE) 50 mg tablet Take 1 tablet by mouth twice daily. 90 tablet 6 12/12/2021 Active Start: 10-12-2021 End: 11-21-2021 take 1 tablet by mouth once daily hydrALAZINE (APRESOLINE) 50 mg tablet Take 50 mg by mouth once daily. 0 10/12/2021 11/21/2021 Discontinued End: 10-30-2022 take 2 tablets by mouth three times daily hydrALAZINE (APRESOLINE) 25 mg tablet Take 50 mg by mouth three times daily. Take at noon 0 10/30/2022 Discontinued take 1 tablet by bhupendra th once daily hydrALAZINE (APRESOLINE) 25 mg tablet Take 25 mg by mouth once daily. Take at noon 0 Active Comment on above: Take 1 tablet by bhupendra th twice daily. Take 50 mg by mouth once daily. Take 25 mg by mouth once daily. Take at noon Take 50 mg by mouth three times daily. Take at noon Take 1 tablet by bhupendra th three times daily. Take one tablet in the morning, noon, and evening. Take 1 tablet by bhupendra th twice daily with meals. Take 1 tablet by bhupendra th three times daily. insulin aspart (NovoLOG) injection (1 source) Start: 9 insulin aspart (NovoLOG) injection 3 ml insulin glargine 100 unt/ml pen injector (20 sources) Insulin Analog Start: 5 inject 34 [IU] by subcutaneous injection once daily in the evening insulin glargine 100 unit/mL (3 mL) Inject 34 Units subcutaneously once daily. daily at 12 pm 01/21/2025 Active inject 10 [IU] by ashraf bcutaneous injection twice daily insulin glargine (LANTUS) 100 unit/mL injection Inject 10 Units subcutaneously two times a day. Suspended inject 15 [IU] by ashraf bcutaneous injection once daily at bedtime insulin glargine (LANTUS) 100 unit/mL injection Inject 15 Units subcutaneously daily at bedtime. 0 Active Comment on above: Inject 15 Units subc utaneously daily at bedtime. Inject 10 Units subc utaneously two times a day. insulin lispro 100 unt/ml injectable solution (20 sources) Insulin Analog Start: 01-21-2025 insulin lispro 100 unit/mL injection daily at 3 am 01/21/2025 Active Start: 01-21-2025 insulin lispro 100 unit/mL injection Inject 0-15 Units subcutaneously daily at bedtime. 01/21/2025 Active Start: 01-21-2025 insulin lispro (HUMALOG KWIKPEN INSULIN) 100 unit/mL Inject 4 units with breakfast, 3 units with lunch, 2 units with dinner plus sliding scale If Blood Glucose (mg/dL) is 400 Give 15 units and Call physician. 30 mL 01/21/2025 Active insulin lispro ( HUMALOG KWIKPEN INSULIN SUBCUTANEOUS) Inject 5 Units/day subcutaneously two times a day. Lunch and Dinner Suspended insulin lispro ( HUMALOG KWIKPEN INSULIN SUBCUTANEOUS) Inject 5 Units/day subcutaneously two times a day. Lunch and Dinner Active insulin lispro ( HUMALOG KWIKPEN INSULIN SUBCUTANEOUS) Inject 5 Units/day subcutaneously two times a day. Lunch and Dinner 0 Active Comment on above: Inject 5 Units/day s ubcutaneously two times a day. Lunch and Dinner insulin, regular, human 100 unt/ml injectable solution (9 sources) Insulin Start: 2024 inject 12 [IU] by subcutaneous injection once daily in the evening insulin regular human 100 unit/mL injection Inject 12 Units subcutaneously once daily. daily at 10 pm at start of PD - hold if PD not initiated 01/21/2025 Active lisinopril 10 mg oral tablet (1 source) Angiotensin Converting Enzyme Inhibitor take 1 tablet by mouth once daily lisinopril 10 MG Tab tablet Take 10 mg by mouth daily. Active magnesium hydroxide 80 mg/ml oral suspension (9 sources) Start: 2024 take 30 mL by mouth every six hours as needed magnesium hydroxide (MOM) 400 mg/5 mL suspension Take 30 mL by mouth every 6 hours as needed. 01/21/2025 Active midodrine hydrochloride 2.5 mg oral tablet (9 sources) alpha-Adrenergic Agonist Start: 2024 take 1 tablet by mouth every eight hours midodrine (PROAMATINE) 2.5 mg tablet Take 1 tablet by mouth every 8 hours. 01/21/2025 Active MULTIVITAMIN-FERROUS FUMARATE-FOLIC ACID 18 MG-400 MCG TABLET (9 sources) Start: 2024 take 1 tablet by mouth once daily at breakfast MULTIVITAMIN-FERROUS FUMARATE-FOLIC ACID 18 MG-400 MCG TABLET Take 1 tablet by mouth daily with breakfast. 01/21/2025 Active mupirocin 0.02 mg/mg topical ointment (1 source) RNA Synthetase Inhibitor Antibacterial Start: 2022 mupirocin 2% topical ointment Apply 1 robi, Topical, BID, Bilateral intranasal application twice daily x 5 days pre-surgery., Apply to: nostril, each, # 22 gram(s), 0 Refill(s), Pharmacy: [facility], Ointment, 174, cm, 01/03/23 13:20:00 EDT, Height, 111.5 Start Date: 01/03/23 Status: Ordered OXYGEN, HOME THERAPY, (20 sources) OXYGEN, HOME THERAPY, Inhale 1.5 L/min as instructed as needed for wheezing/shortness of breath. Suspended OXYGEN, HOME THE RAPY, Inhale 1.5 L/min as instructed as needed for wheezing/shortness of breath. Active OXYGEN, HOME THE RAPY, Inhale 1.5 L/min as instructed as needed for wheezing/shortness of breath. 0 Active OXYGEN, HOME THE RAPY, Inhale 1.5 L/min as instructed continuous. 0 Active OXYGEN, HOME THE RAPY, Inhale 1 L/min as instructed continuous. 0 Active Comment on above: Inhale 1 L/min as in structed continuous. Inhale 1.5 L/min as instructed continuous. Inhale 1.5 L/min as instructed as needed for wheezing/shortness of breath. pantoprazole 20 mg delayed release oral tablet (9 sources) Proton Pump Inhibitor Start: 025 take 1 tablet by mouth once daily in the morning pantoprazole DR (PROTONIX) 20 mg tablet Take 1 tablet by mouth daily at 6 am. 01/22/2025 Active pioglitazone 45 mg oral tablet (20 sources) Peroxisome Proliferator Receptor alpha Agonist, Peroxisome Proliferator Receptor gamma Agonist, Thiazolidinedione Start: 023 pioglitazone 45 mg oral tablet Dose : 45 mg = 1 tab(s), Oral, Daily Start Date: 10/03/22 Status: Ordered Start: 03-08-2020 End: 10-02-2023 take 1 tablet by mouth once daily pioglitazone (ACTOS) 30 mg tablet Take 30 mg by mouth once daily. 0 03/08/2020 10/02/2023 Discontinued (Discontinued by Patient) Comment on above: Take 30 mg by mouth once daily. polyethylene glycol 3350 24424 mg powder for oral solution (9 sources) Osmotic Laxative Start: 01-22-2025 polyethylene glycol 3350 17 gram packet Take 1 packet by mouth once daily. Dissolve dose in 4 - 8 ounces of liquid and take as directed. 01/22/2025 Active 125 ml sodium chloride 9 mg/ml prefilled syringe (14 sources) Start: 04-06-2025 End: 04-13-2025 sodium chloride 0.9 % (flush) 10 mL (BD POSIFLUSH) Start: 10-16-2023 End: 10-15-2024 sodium chloride 0.9 %, flush , (BD POSIFLUSH) syringe Inject 2- 10 mL intravenously as directed. For Echo procedure 10 mL 0 10/16/2023 10/16/2023 Discontinued (Course of therapy completed) Start: 09-04-2018 sodium chlorid e 0.9% IV solution Comment on above: Inject 2-10 mL intra venously as directed. For Echo procedure tamsulosin hydrochloride 0.4 mg oral capsule (20 sources) alpha-Adrenergic Ashok Start: 01-22-20 take 1 capsule by mouth once daily tamsulosin (FLOMAX) 0.4 mg Take 1 capsule by mouth once daily. 90 capsule 01/21/2025 Active Start: 03-08-2020 take 0.4 mg by mouth once curt y tamsulosin ER (FLOMAX) 0.4 mg Take 0.4 mg by mouth once daily. 03/08/2020 Suspended Comment on above: Take 0.4 mg by mouth once daily. traMADol hydrochloride 50 mg oral tablet (12 sources) Opioid Agonist Start: 01-21-2025 End: 01-28-2025 take 0.5 tablet by mouth every twelve hours as needed traMADol (ULTRAM) 50 mg tablet Take 0.5 tablets by mouth every 12 hours as needed for up to 7 days. 01/21/2025 01/28/2025 Active Start: 09-30-2024 take 1 tablet by bhupendra th every twelve hours traMADol (ULTRAM) 50 mg tablet Take 1 tablet by mouth every 12 hours. 09/30/2024 Suspended Start: 09-04-2018 End: 09-10-2018 take 1 tablet by mouth every six hours as needed for pain traMADol 50 MG Tab tablet Indications: Closed fracture of proximal end of left tibia, unspecified fracture morphology, initial encounter Take 1 tablet by mouth every 6 hours as needed for Moderate Pain or Severe Pain for up to 5 days. 20 tablet 0 09/05/2018 09/10/2018 Active Vitamin D3 (2 sources) Start: 10-02-2022 take 1 capsule by mouth once daily Vitamin D3 Dose : 1,250 mcg =, Oral, Daily, # 30 cap(s), 0 Refill(s) Start Date: 10/02/22 Status: Ordered Vitamin D3 125 mcg (5000 intl units) oral tablet (1 source) Start: 01-03-2023 Vitamin D3 125 mcg (5000 intl units) oral tablet Dose : 125 mcg = 1 tab(s), Oral, qDay, # 100 tab(s), 0 Refill(s) Start Date: 01/03/23 Status: Ordered zinc oxide 130 mg/ml topical cream (9 sources) Start: 01-21-2025 End: 04-21-2025 zinc oxide (DESITIN) 13 % cream Apply to affected area as needed. 01/21/2025 Active Completed/Discontinued Medications Medication Drug Class(es) Dates Sig (Normalized) Sig (Original) allopurinol 300 mg oral tablet (20 sources) Xanthine Oxidase Inhibitor Start: 12-10-2019 take 3 tablets by mouth once daily allopurinol (ZYLOPRIM) 100 mg tablet Take 300 mg by mouth once daily. 0 12/10/2019 Active Start: 12-10-2019 take 1 tablet by bhupendra th once daily allopurinol (ZYLOPRIM) 300 mg tablet Take 300 mg by mouth once daily. 12/10/2019 Suspended Start: 12-10-2019 take 1 tablet by bhupendra th once daily allopurinol (ZYLOPRIM) 100 mg tablet Take 100 mg by mouth once daily. 0 12/10/2019 Active Comment on above: Take 100 mg by mouth once daily. Take 300 mg by mouth once daily. amLODIPine 10 mg oral tablet (17 sources) Dihydropyridine Calcium Channel Ashok Start: 10-12-19 End: 02-22-20 take 1 tablet by mouth once daily amLODIPine (NORVASC) 10 mg tablet Take 10 mg by mouth once daily. 0 10/12/2021 02/21/2023 Discontinued (Course of therapy completed) Comment on above: Take 10 mg by mouth once daily. amoxicillin 875 mg oral tablet (1 source) Penicillin-class Antibacterial Start: 07-11-20 End: 11-22-19 take 1 tablet by mouth twice daily amoxicillin (AMOXIL) 875 mg tablet Take 875 mg by mouth twice daily. 0 07/11/2021 11/21/2021 Discontinued (Course of therapy completed) Comment on above: Take 875 mg by mouth twice daily. amoxicillin 875 mg / clavulanate 125 mg oral tablet (4 sources) Penicillin-class Antibacterial Start: 01-04-20 End: 01-14-20 take 1 tablet by mouth every twelve hours amoxicillin-clavulan ate 875 mg-125 mg oral tablet 1 tab(s), Oral, q12h, 113.2 Start Date: 01/03/23 Stop Date: 01/13/23 Status: Ordered Start: 01-01-2023 End: 02-21-2023 amoxicillin-clavulanic acid (AUGMENTIN) 875-125 mg per tablet azithromycin 250 mg oral tablet (6 sources) Macrolide Antimicrobial Start: 04-19-2023 End: 10-02-2023 azithromycin (ZITHROMAX) 250 mg tablet Indications: Chronic obstructive pulmonary disease, unspecified COPD type (HCC) Take 2 tabs on the first day, then one tab daily for 4 days. 6 tablet 0 04/19/2023 10/02/2023 Discontinued (Discontinued by Patient) Comment on above: Take 2 tabs on the f irst day, then one tab daily for 4 days. Benzocaine (1 source) Standardized Chemical Allergen Start: 12-18-2024 End: 12-18-2024 TOPICAL, X (OR/PROCEDURE) PRN, Starting on Sirena 12/18/24 at 0806, Until Sirena 12/18/24 at 0806, Intraprocedure benzocaine 6 mg / menthol 10 mg oral lozenge (6 sources) Standardized Chemical Allergen Start: 01-21-2025 End: 03-13-2025 benzocaine-menthol (CHLORASEPTIC) 6-10 mg lozenges Take 1 lozenge by mouth every 2 hours as needed. 01/21/2025 03/13/2025 Discontinued (Clinical Decision) bumetanide 1 mg oral tablet (18 sources) Loop Diuretic Start: 10-12-2021 End: 02-21-2023 bumetanide (BUMEX) 1 mg tablet Take 1 mg by mouth as needed. 0 10/12/2021 02/21/2023 Discontinued (Course of therapy completed) Comment on above: Take 1 mg by mouth t wice daily. Take 1 mg by mouth a s needed. calcium carbonate 500 mg chewable tablet (6 sources) Start: 01-21-2025 End: 03-13-2025 take 500-1000 mg by mouth every eight hours as needed calcium carbonate (TUMS) 500 mg chew Take 1-2 tablets by mouth three times a day as needed (GI Upset - First Line Therapy). 01/21/2025 03/13/2025 Discontinued (Clinical Decision) carvedilol 6.25 mg oral tablet (20 sources) alpha-Adrenergic Ashok, beta-Adrenergic Ashok Start: 10-30-2022 End: 10-30-2022 take 1 tablet by mouth twice daily carvedilol (COREG) 3.125 mg tablet Indications: Chronic HFrEF (heart failure with reduced ejection fraction) ([facility]) Take 1 tablet by mouth twice daily. 60 tablet 4 10/30/2022 10/30/2022 Discontinued Start: 03-29-2022 End: 08-22-2025 take 1 tablet by mouth twice daily at mealtime carvedilol (COREG) 6.25 mg tablet Indications: Chronic HFrEF (heart failure with reduced ejection fraction) ([facility]) , Primary hypertension Take 1 tablet by mouth two times a day with meals. 180 tablet 3 08/27/2024 08/22/2025 Suspended Comment on above: Take 1 tablet by bhupendra th twice daily. cholecalciferol 0.025 mg oral tablet (20 sources) Vitamin D take 1 tablet by mouth once daily cholecalciferol (VITAMIN D) 1,000 unit tab tablet Take 1,000 Units by mouth once daily. Suspended Comment on above: Take 1,000 Units by mouth once daily. dapagliflozin 10 mg oral tablet (20 sources) Sodium-Glucose Cotransporter 2 Inhibitor take 1 tablet by mouth once daily at breakfast dapagliflozin propanediol (FARXIGA) 10 mg tablet Take 10 mg by mouth daily with breakfast. Suspended Comment on above: Take 10 mg by mouth daily with breakfast. doxycycline hyclate 100 mg oral tablet (13 sources) Tetracycline-class Drug Start: 2022 End: 2023 doxycycline (VIBRA-TABS) 100 mg tablet 1 ml fentaNYL 0.05 mg/ml injection (1 source) Opioid Agonist Start: 2024 End: 2024 INTRAVENOUS, X (OR/PROCEDURE) PRN, Starting on Sirena 12/18/24 at 0811, Until Sirena 12/18/24 at 0818, Intraprocedure finasteride 5 mg oral tablet (14 sources) 5-alpha Reductase Inhibitor Start: 2022 End: 2023 take 1 tablet by mouth once daily finasteride (PROSCAR) 5 mg tablet Take 5 mg by mouth once daily. 0 12/25/2022 10/02/2023 Discontinued (Discontinued by Patient) Comment on above: Take 5 mg by mouth o nce daily. fluticasone propionate 0.05 mg/actuat metered dose nasal spray (20 sources) Corticosteroid Start: 2023 take 1-2 spray(s) nasal route once daily fluticasone (FLONASE) 50 mcg/actuation nasal spray Indications: Allergic rhinitis, unspecified seasonality, unspecified trigger Use 1-2 Sprays in each nostril once daily. 1 Each 02/14/2024 Suspended ibuprofen 600 mg oral tablet (1 source) Nonsteroidal Anti-inflammatory Drug Start: 2018 End: 2018 ibuprofen (MOTRIN) tablet 600 mg Start: 09-04-2018 End: 09-04-2018 ibuprofen (MOTRIN) tablet 60 0 mg Ioversol 68 % Ij Soln (1 source) Radiographic Contrast Agent Start: 09-04-2018 End: 09-04-2018 Ioversol (OPTIRAY) 68 % 5-100 mL levoFLOXacin 500 mg oral tablet (1 source) Quinolone Antimicrobial Start: 08-01-2021 End: 11-21-2021 take 1 tablet by mouth once daily levoFLOXacin (LEVAQUIN) 500 mg tablet Take 500 mg by mouth once daily. 0 08/01/2021 11/21/2021 Discontinued (Course of therapy completed) Comment on above: Take 500 mg by mouth once daily. lidocaine 0.04 mg/mg medicated patch (7 sources) Antiarrhythmic, Amide Local Anesthetic Start: 01-21-2025 End: 03-13-2025 apply 1 dose transdermal route once daily lidocaine (SALONPAS) 4 % patch Apply 1 patch as directed once daily. 01/21/2025 03/13/2025 Discontinued (Clinical Decision) Start: 12-18-2024 End: 12-18-2024 X (OR/PROCEDURE) PRN, Starti ng on Sirena 12/18/24 at 0807, Until Sirena 12/18/24 at 0807, Intraprocedure melatonin 1 mg oral tablet (6 sources) Start: 01-21-2025 End: 03-13-2025 take 1 tablet by mouth every twenty-four hours as needed melatonin 1 mg tablet Take 1 tablet by mouth at bedtime as needed for insomnia. 01/21/2025 03/13/2025 Discontinued (Clinical Decision) methylPREDNISolone (1 source) Corticosteroid Start: 08-01-2021 End: 11-21-2021 methylPREDNISolone (MEDROL DOSE-PACK) 4 mg Dose-Pack USE DIRECTED ON PACKAGE 0 08/01/2021 11/21/2021 Discontinued (Course of therapy completed) Comment on above: USE DIRECTED ON P ACKAGE 5 ml midazolam 1 mg/ml injection (1 source) Benzodiazepine Start: 12-18-2024 End: 12-18-2024 INTRAVENOUS, X (OR/PROCEDURE) PRN, Starting on Sirena 12/18/24 at 0811, Until Sirena 12/18/24 at 0818, Intraprocedure 1 ml morphine sulfate 2 mg/ml cartridge (1 source) Opioid Agonist Start: 09-04-2018 End: 09-04-2018 morphine (PF) injection 2 mg perflutren lipid microspheres 1.3 mL in NaCl (PF) 0.9% 10 mL injection (DEFINITY) (2 sources) Start: 11-25-2024 End: 11-25-2024 perflutren lipid microspheres 1.3 mL in NaCl (PF) 0.9% 10 mL injection (DEFINITY) Start: 11-25-2024 End: 11-25-2024 take 1 dose intravenously once as needed INTRAVENOUS, DIRECTED NEEDED, 1 dose, Starting on 11/25/24 at 1136, Until 11/25/24 at 1201, Per Protocol - for use during ECHO procedure only, If no IV access, insert saline lock prior to administering contrast. Discontinue saline lock post exam. If patient has central line or IVAD, may access for administration according to line specific nursing protocol. Once exam is complete, flush line and de-access per line specific nursing protocol.Dilute 1.3 ml of Definity with 8.7 ml of preservative-free saline., Cardiac Procedure Med Orders predniSONE 20 mg oral tablet (1 source) Start: 10-12-2021 End: 11-21-2021 take 1 tablet by mouth once daily predniSONE (DELTASONE) 20 mg tablet TAKE ONE TABLET BY MOUTH EVERY DAY FOR SEVEN DAYS 0 10/12/2021 11/21/2021 Discontinued (Course of therapy completed) Comment on above: TAKE ONE TABLET BY M OUTH EVERY DAY FOR SEVEN DAYS torsemide 20 mg oral tablet (5 sources) Loop Diuretic Start: 12-25-2022 End: 02-21-2023 take 1 tablet by mouth twice daily torsemide (DEMADEX) 20 mg tablet Take 20 mg by mouth twice daily. 0 12/25/2022 02/21/2023 Discontinued (Course of therapy completed) Comment on above: Take 20 mg by mouth twice daily. Problems Active Problems Problem Classification Problem Date Documented Date Episodic/Chronic Acute myocardial infarction (1 source) Myocardial infarction type 2; Translations: [Type 2 myocardial infarction (HCC)] Onset: 5 Chronic Cardiac dysrhythmias (1 source) Junctional premature depolarization; Translations: [Junctional escape rhythm (HCC)] Onset: 5 Chronic Chronic kidney disease (20 sources) Chronic kidney disease stage 3; Translations: [Chronic kidney disease stage 4] Onset: 9 09-05-2018 Chronic Chronic obstructive pulmonary disease and bronchiectasis (20 sources) Chronic obstructive lung disease; Translations: [Chronic obstructive pulmonary disease, unspecified] Onset: 3 Chronic Chronic obstructive pulmonary disease and bronchiectasis (1 source) Bronchitis, not specified as acute or chronic; Translations: [Bronchitis] Onset: 5 Episodic Coagulation and hemorrhagic disorders (10 sources) Thrombocytopenic disorder; Translations: [Thrombocytopenia, unspecified] Onset: 5 01-14-2025 Chronic Conduction disorders (20 sources) Anterior fascicular block, posterior fascicular block AND incomplete right bundle branch block; Translations: [Trifascicular block] Onset: 5 12-29-2024 Chronic Congestive heart failure; nonhypertensive (20 sources) Acute on chronic combined systolic and diastolic heart failure; Translations: [Acute on chronic combined systolic (congestive) and diastolic (congestive) heart failure] Onset: 4 Chronic Coronary atherosclerosis and other heart disease (20 sources) Coronary arteriosclerosis; Translations: [Atherosclerotic heart disease of [place] coronary artery without angina pectoris] Onset: 4 10-16-2023 Chronic Diabetes mellitus with complications (20 sources) Chronic kidney disease due to type 2 diabetes mellitus; Translations: [Type 2 diabetes mellitus with diabetic chronic kidney disease] Onset: 4 Chronic Diabetes mellitus without complication (20 sources) Type 2 diabetes mellitus; Translations: [Diabetes mellitus] Onset: 9 09-05-2018 Chronic Disorders of lipid metabolism (20 sources) Mixed hyperlipidemia; Translations: [Mixed hyperlipidemia] Onset: 4 10-02-2023 Chronic Essential hypertension (20 sources) Essential hypertension; Translations: [Essential (primary) hypertension] Onset: 1 Chronic Fluid and electrolyte disorders (18 sources) Hypervolemia; Translations: [Fluid overload, unspecified] Onset: 5 Resolved: 5 12-16-2024 Episodic Fracture of lower limb (2 sources) Unspecified fracture of upper end of left tibia, initial encounter for closed fracture; Translations: [Fracture of tibia] Onset: 9 09-05-2018 Episodic Genitourinary symptoms and ill-defined conditions (1 source) Scalding pain on urination 01-03-2023 Episodic Heart valve disorders (20 sources) Non-rheumatic mitral regurgitation ; Translations: [Nonrheumatic mitral (valve) insufficiency] Onset: 4 10-02-2023 Chronic Hyperplasia of prostate (2 sources) Benign prostatic hypertrophy without outflow obstruction; Translations: [Benign prostatic hyperplasia without lower urinary tract symptoms] Chronic Hypertension with complications and secondary hypertension (3 sources) 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; Translations: [Hypertensive heart and chronic kidney disease with heart failure and stage 1 through stage 4 chronic kidney disease, or unspecified chronic kidney disease] Onset: 3 Chronic Malaise and fatigue (1 source) Weakness; Translations: [Generalized weakness] Onset: 5 Episodic Occlusion or stenosis of precerebral arteries (20 sources) Bilateral stenosis of carotid arteries; Translations: [Occlusion and stenosis of bilateral carotid arteries] Onset: 4 10-26-2023 Chronic Other aftercare (1 source) Post-discharge follow-up; Translations: [Encounter for follow-up examination after completed treatment for conditions other than malignant neoplasm] Episodic Other diseases of kidney and ureters (14 sources) Hyperparathyroidism due to renal insufficiency; Translations: [Secondary hyperparathyroidism of renal origin] Onset: 5 12-16-2024 Chronic Other inflammatory condition of skin (20 sources) Psoriasis; Translations: [Psoriasis, unspecified] Onset: 2 Chronic Other lower respiratory disease (20 sources) Post-inflammatory pulmonary fibrosis; Translations: [Pulmonary fibrosis, unspecified] Onset: 1 04-29-2021 Chronic Other lower respiratory disease (20 sources) Interstitial lung disease; Translations: [Interstitial pulmonary disease, unspecified] Onset: 1 06-09-2021 Chronic Other lower respiratory disease (1 source) Chronic pulmonary edema; Translations: [Chronic pulmonary edema] Chronic Other lower respiratory disease (1 source) Shortness of breath; Translations: [Shortness of breath] Onset: 5 Episodic Other nutritional; endocrine; and metabolic disorders (12 sources) Obesity, unspecified; Translations: [Obese class I] Onset: 9 09-05-2018 Chronic Other nutritional; endocrine; and metabolic disorders (20 sources) Obese class II; Translations: [Obesity, unspecified] Onset: 2 Chronic Other nutritional; endocrine; and metabolic disorders (1 source) Body mass index 30+ - obesity 01-03-2023 Chronic Other nutritional; endocrine; and metabolic disorders (20 sources) Severe obesity; Translations: [Morbid (severe) obesity due to excess calories] Onset: 4 10-02-2023 Chronic Other nutritional; endocrine; and metabolic disorders (1 source) Hypomagnesemia; Translations: [Hypomagnesemia] Onset: 5 Chronic Other nutritional; endocrine; and metabolic disorders (1 source) Hypocalcemia; Translations: [Hypocalcemia due to chronic kidney disease] Onset: 5 Chronic Other nutritional; endocrine; and metabolic disorders (1 source) Morbid (severe) obesity due to excess calories; Translations: [Class 2 severe obesity due to excess calories with serious comorbidity and body mass index (BMI) of 35.0 to 35.9 in adult ([facility])] Onset: 5 Chronic Other nutritional; endocrine; and metabolic disorders (1 source) Body mass index (BMI) 35.0-35.9, adult; Translations: [Class 2 severe obesity due to excess calories with serious comorbidity and body mass index (BMI) of 35.0 to 35.9 in adult ([facility])] Onset: 5 Chronic Other nutritional; endocrine; and metabolic disorders (1 source) H/O: diabetes mellitus; Translations: [Personal history of other endocrine, nutritional and metabolic disease] Episodic Other upper respiratory disease (20 sources) Allergic rhinitis; Translations: [Allergic rhinitis, unspecified] Onset: 4 02-14-2024 Chronic Michelle-; endo-; and myocarditis; cardiomyopathy (except that caused by tuberculosis or sexually transmitted disease) (20 sources) Dilated cardiomyopathy; Translations: [Dilated cardiomyopathy] Onset: 3 Chronic Pneumonia (except that caused by tuberculosis or sexually transmitted disease) (2 sources) Pneumonia; Translations: [Pneumonia, unspecified organism] Episodic Comment on above: on 2 antibiotics Pulmonary heart disease (2 sources) Pulmonary arterial hypertension; Translations: [Secondary pulmonary arterial hypertension] 10-16-2023 Chronic Residual codes; unclassified (20 sources) Obstructive sleep apnea syndrome; Translations: [Obstructive sleep apnea (adult) (pediatric)] Onset: 1 Resolved: 4 04-29-2021 Chronic Residual codes; unclassified (2 sources) Sleep apnea 12-18-2022 Chronic Residual codes; unclassified (2 sources) Obstructive sleep apnea (adult) (pediatric); Translations: [MACY on CPAP] Onset: 2 Chronic Residual codes; unclassified (1 source) History of cardiac catheterization; Translations: [Other specified postprocedural states] 11-11-2024 Episodic Respiratory failure; insufficiency; arrest (adult) (20 sources) Dependence on supplemental oxygen; Translations: [Dependence on supplemental oxygen] Onset: 3 Resolved: 5 Chronic Syncope (2 sources) Syncope and collapse; Translations: [Syncope and collapse] 10-02-2023 Episodic Unclassified (2 sources) Home oxygen therapy 12-18-2022 Unclassified (1 source) Uses home continuous positive airway pressure ventilation supply 01-03-2023 Unclassified (1 source) Non rheumatic mitral valve regurgitation Onset: 4 Unclassified (1 source) History of cardiac catheterization 11-11-2024 Unclassified (1 source) Recheck Onset: 5 Unclassified (1 source) Class 2 severe obesity due to excess calories with serious comorbidity and body mass index (BMI) of 35.0 to 35.9 in adult ([facility]); Translations: [Class 2 severe obesity due to excess calories with serious comorbidity and body mass index (BMI) of 35.0 to 35.9 in adult ([facility])] Onset: 5 Unclassified (1 source) Low back pain, unspecified; Translations: [Low back pain, unspecified] Onset: Past or Other Problems Problem Classification Problem Date Documented Da te Episodic/Chronic Complications of surgical procedures or medical care (10 sources) Acute pulmonary insufficiency following thoracic surgery; Translations: [Acute pulmonary insufficiency following thoracic surgery] Onset: 01-10-2025 01-10-2025 Episodic Deficiency and other anemia (10 sources) Anemia due to multiple mechanisms; Translations: [Other specified anemias] Onset: 01-11-2025 01-13-2025 Episodic Nutritional deficiencies (10 sources) Deficiency of macronutrients; Translations: [Unspecified severe protein-calorie malnutrition] Onset: 12-28-2024 Resolved: 01-15-2025 01-15-2025 Chronic Other aftercare (10 sources) Insulin dose changed; Translations: [MCFP (current) use of insulin] Onset: 01-14-2025 01-14-2025 Episodic Other aftercare (1 source) 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; Translations: [Type 2 diabetes mellitus with stage 4 chronic kidney disease, with long-term current use of insulin (HCC)] Onset: 10-02-2023 Episodic Other circulatory disease (10 sources) Low blood pressure; Translations: [Other hypotension] Onset: 01-10-2025 01-10-2025 Episodic Other gastrointestinal disorders (10 sources) Dysphagia; Translations: [Dysphagia, unspecified] Onset: 12-29-2024 12-31-2024 Episodic Other infections; including parasitic (20 sources) Personal history of other infectious and parasitic diseases; Translations: [History of 2019 novel coronavirus disease (COVID-19)] Onset: 09-08-2021 09-08-2021 Episodic Other lower respiratory disease (20 sources) Dyspnea; Translations: [Shortness of breath] Onset: 2021 Episodic Other lower respiratory disease (20 sources) Dyspnea on exertion; Translations: [Shortness of breath] Onset: 04-29-2021 04-29-2021 Episodic Other lower respiratory disease (20 sources) Solitary nodule of lung; Translations: [Solitary pulmonary nodule] Onset: 01-02-2023 Episodic Other lower respiratory disease (20 sources) Multiple nodules of lung; Translations: [Other nonspecific abnormal finding of lung field] Onset: 04-19-2023 04-19-2023 Episodic Other nervous system disorders (20 sources) Postoperative pain ; Translations: [Other acute postprocedural pain] Onset: 01-23-2023 Resolved: 01-07-2025 Episodic Other screening for suspected conditions (not mental disorders or infectious disease) (12 sources) Decreased cardiac ejection fraction; Translations: [Abnormal findings on diagnostic imaging of heart and coronary circulation] Onset: 12-25-2024 10-02-2023 Episodic Pleurisy; pneumothorax; pulmonary collapse (20 sources) Atelectasis; Translations: [Atelectasis] Onset: 06-09-2021 06-09-2021 Episodic Residual codes; unclassified (20 sources) Bilateral lower limb edema; Translations: [Localized edema] Onset: 2021 Episodic Residual codes; unclassified (20 sources) Past history of procedure; Translations: [Personal history of other medical treatment] Onset: 03-18-2021 Episodic Residual codes; unclassified (20 sources) Edema, generalized; Translations: [Generalized edema] Onset: 2021 2021 Episodic Residual codes; unclassified (10 sources) Tube feeding diet; Translations: [Other specified health status] Onset: 12-31-2024 01-10-2025 Episodic Respiratory failure; insufficiency; arrest (adult) (11 sources) Acute respiratory failure; Translations: [Acute respiratory failure with hypoxia] Onset: 12-25-2024 Resolved: 01-06-2025 01-06-2025 Episodic Screening and history of mental health and substance abuse codes (20 sources) Ex-smoker; Translations: [Personal history of nicotine dependence] Onset: 2021 Episodic Spondylosis; intervertebral disc disorders; other back problems (2 sources) Sciatica; Translations: [Radiculopathy, lumbar region] Onset: 09-13-2024 01-03-2023 Episodic Unclassified (1 source) J44.9 Onset: 01-02-2023 Unclassified (2 sources) Patient encounter status 02-23-2025 Results Test Name Value Interpretation Reference Range Facility MR/PATAmos 07-01-2025 MR/PATAMEE [facility] Medical Records Department [address] [place] [id number] PAT - Anesthesia 07/01/25 1000 MR#: [id number] Acct: [id number] Name: PETE CONLEY Rep #: [id number] : [id number] 75 From: Pramod Dumont MD PCP: Dr. Moises Prater MD Status:PRE [facility] [place] Race: C [place] [facility] [place]Assessment Diagnosis/Proposed Procedure Planned Operative Procedure(s): RIGHT ARM AV CREATION Anesthesia History Anesthesia History - cornetist: Anesthesia History - cornetist Hx Hospitalization Yes: 06/22/25 FOR BRONCHITIS 06/30/25 14:33 Any Problems With Anesthesia Yes: NAUSEA AND DIZZY 06/30/25 14:33 Cholinesterase deficiency No 06/30/25 14:33 You/Your Family Experience No 06/30/25 14:33 fever (hyperthermia) with Relationship Recent Exposure to Contagious Disease Does patient have nerve No 06/30/25 14:33 stimulator Patient instructed to have device shut off --Does patient have Pacemaker or ICD? When Was Last Pacemaker Check QUESTION #4 FULL TEXT: You/Your Family Experience fever (hyperthermia) with Anesthesia Last Oral Intake Last Oral intake: Last Oral Intake NPO since Meds taken in AM with sips of water? Meds patient instructed to take am of surgery PONV PONV - cornetist: PONV - cornetist Female No 06/30/25 14:33 HX of Motion Sickness No 06/30/25 14:33 HX of N/V After Surgery No 06/30/25 14:33 Non-Smoker Yes 06/30/25 14:33 Duration of Surgery greater Yes 06/30/25 14:33 than 60 minutes Number of Risk Factors 2 06/30/25 14:33 PONV Score Moderate Risk 06/30/25 14:33 Height Weight Height Weight: Anesthesia: Height Weight Height 5 ft 11 in 06/17/25 15:52 Respiratory Assessment Respiratory Assessment - cornetist: Respiratory Tract Infection Hx - cornetist Hx Respiratory Tract Infection No 06/30/25 14:33 STOP Sleep Apnea STOP Sleep Apnea - cornetist: STOP Sleep Apnea - cornetist Hx Hypertension Yes: MANY YRS AGO 06/30/25 14:33 Hx Sleep Apnea Yes 06/30/25 14:33 CPAP Yes 06/30/25 14:33 BIPAP No 06/30/25 14:33 Do you snore loudly (louder than talking or can be heard Do you often feel tired/ fatigued/ sleepy during daytime? Has anyone observed you stop breathing during sleep? STOP Results Positive 06/30/25 14:33 QUESTION #5 FULL TEXT : Do you snore loudly (louder than talking or can be heard through closed doors)? Tobacco Use History Tobacco Use History - cornetist: Tobacco Use History - cornetist Tobacco Use Smoking Status Former smoker 06/30/25 14:33 Hx Tobacco Use No 06/30/25 14:33 Years Smoking Packs Smoked per Day Smoking Cessation Date was No - quit smoking greater 06/30/25 14:33 within the last 15 years than 15 years ago Hx Smoking Cessation Date 08/20/79 06/30/25 14:33 Hx Smoking Cessation No 06/30/25 14:33 Counseling Hematologic Medial History Hematologic Hx - cornetist: Hematologic Medical Hx - esthetician and manager medical spa Hx of Blood Transfusion No 06/30/25 14:33 Hx of Transfusion in last 3 No 06/30/25 14:33 Months Date of Last Transfusion (if within last 3 months) Ever experience any problems No 06/30/25 14:33 with transfusion(s)? Specify any problems Hx of Preganancy in last 3 N/A 06/30/25 14:33 Months Nurse Filling Out Transfusion DSCHRIBER 06/30/25 14:33 Questions: Date: 06/30/25 06/30/25 14:33 Time: 14:35 06/30/25 14:33 Patient unable to answer at this time (ie. confused, unrespo /Reproduction History /Reproductive History - cornetist: /Reproductive Hx- cornetist Hx Now No 06/30/25 14:33 Gestational Age (in weeks): EDC: Hx Hx Para Hx Section SAB No 06/30/25 14:33 Does the father of the baby or his family experience fever w Father of the baby Malignant Hypertension history comment [facility] Medical History (Updated 06/30/25 @ 14:46 by Kirstin Aguiar) Insulin dependent diabetes mellitus Low iron Restless legs Injury of back Dietary restriction Gastric reflux On home oxygen therapy Shortness of breath on exertion History of pain when walking History of pacemaker Wears hearing aid Wears glasses Walker as ambulation aid History of renal dialysis History of renal disease High cholesterol Syncope Former smoker CPAP (continuous positive airway pressure) dependence Leg cramps History of echocardiogram History of stress test Cardiology follow-up encounter Hypertension Kidney failure Dialysis patient Congestive heart failure Amputation of right foot Home Medications (more content not included)... Normal [facility] 06-26-2025 HEIDE Telephone (CAUNDO) JARVISPETE Sutton ([id number]) 1950 M Date Time Provider Department 06/26/25 MANSOOR HAILE During your visit today, we recorded the following information about you: Mansoor Haile MD 06/26/2025 4:18 PM Signed Dejah had called a few times stating that dad's blood pressure has been 80/50 maybe for the last 10 days. I saw him on June 15 and at that time we discussed increasing the dialysate to get his weight down and apparently they did this to 4.5% for 4 days from 06 15 through 06 18 and now he is on 2.5% 3 bags at night. He had been in prior 1.5%. I looked through all his weights and it appears that his best baseline was 241 on January and March. On June 15 he was down to 230 I think that may be too low for him. He has a history of ischemic cardiomyopathy with an EF of 25% from an echo done March 30, 2025 but he cannot take Entresto or verquvo because if they are not defined with peritoneal dialysis or hemodialysis. Plan 1. Tonight we will start with back to the dialysate of 1.5% 3 bags at night as his manager strategy has indicated 2. Continue with daily weights and try to get the best baseline and appears to be 241 as he had in February and March 3. Dejah says that they called the dialysis center or his manager strategy in the office mentioned that they should call me and give a pill that increase his blood pressure. I assume that his midodrine however that is contraindicated or to be used with caution of renal impairment. 4. The treatment for his low blood pressure is to pull out less fluid from his body and get his weight closer to 40 instead of 230 I believe. I reviewed his blood pressures in the 120s to 130s range prior. Allergies As of Date: 06/26/2025 Noted Allergy Reaction AMLODIPINE 04/29/2021 7 - Swelling ASPIRIN 04/05/2020 14 - Other: See Comments Comments: tacchycardia CLAMS 08/27/2024 16 - Unknown KIWI 05/26/2025 2 - Rash METFORMIN 08/27/2024 5 - Intolerance VICTOZA (LIRAGLUTIDE) 2021 14 - Other: See Comments Date Reviewed: 06/15/2025 Reviewed by: Sukhdeep Lozada MA - Fully Assessed Prescriptions as of 06/26/2025 - phenazopyridine (PYRIDIUM) 100 mg tablet Take 2 tablets by mouth three times a day. - sulfamethoxazole/trime thoprim (BACTRIM PO) Take 1 tablet by mouth two times a day. - OXYGEN, HOME THERAPY, Inhale 2 L/min as instructed continuous. - cholecalciferol (VITAMIN D) 1,000 unit tab tablet Take 1,000 Units by mouth once daily. - atorvastatin (LIPITOR) 80 mg tablet Take 1 tablet by mouth daily at bedtime. - clopidogrel (PLAVIX) 75 mg tablet Take 1 tablet by mouth every morning. - tamsulosin (FLOMAX) 0.4 mg Take 1 capsule by mouth once daily. - acetaminophen (TYLENOL) 325 mg tablet Take 2 tablets by mouth every 4 hours as needed for pain. - albuterol (PROVENTIL) 2.5 mg /3 mL (0.083 %) nebulizer solution Use 3 mL via nebulizer every 4 hours as needed for wheezing/shortness of breath. - MULTIVITAMIN-FERROUS FUMARATE-FOLIC ACID 18 MG-400 MCG TABLET Take 1 tablet by mouth daily with breakfast. - insulin glargine 100 unit/mL (3 mL) Inject 34 Units subcutaneously once daily. daily at 12 pm - aspirin 81 mg chewable tablet Take 1 tablet by mouth once daily. - B Complex-Vitamin C-Folic Acid (LENA-VIT) 0.8 mg tab Take 1 tablet by mouth once daily. - pantoprazole DR (PROTONIX) 20 mg tablet Take 1 tablet by mouth daily at 6 am. - insulin lispro (HUMALOG KWIKPEN INSULIN) 100 unit/mL Inject 4 units with breakfast, 3 units with lunch, 2 units with dinner plus sliding scale If Blood Glucose (mg/dL) is <110 Give 0 units 111-150 Give 1 units 151-200 Give 3 unit 201-250 Give 6 units 251-300 Give 9 units 301-350 Give 12 units 351-400 Give 15 units >400 Give 15 units and Call physician. 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.*04/29/2021 MACY (obstructive sleep apnea) [G47.33] 04/29/2021 History of echocardiogram [Z92.89] 03/18/2021 Atelectasis [J98.11] 06/09/2021 Interstitial pulmonary disease (HCC) [J84.9] 06/09/2021 History of echocardiography [Z92.89] 10/22/2021 History of cardiovascular stress test [Z92.89] 10/22/2021 Psoriasis [L40.9] 07/03/2022 MACY on CPAP [G47.33] 07/03/2022 DCM (dilated cardiomyopathy) (HCC) [I42.0] 01/02/2023 Chronic hypoxemic respiratory failure (HCC) [J9*01/02/2023 Chronic obstructive pulmonary disease (HCC) [J4*01/02/2023 Solitary pulmonary nodule [R91.1] 01/02/2023 Pulmonary nodules [R91.8] 04/19/2023 Class 2 severe obesity due to excess calories w*10/02/2023 Type 2 diabetes mellitus with stage 4 chronic k*10/02/2023 HLD (hyperlipidemia) [E78.5] 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 [facility] 06-25-2025 HEIDE Telephone (CAUNDO) JARVISPETE ([id number]) 1950 M Date Time Provider Department 06/25/25 MANSOOR HAILE During your visit today, we recorded the following information about you: Claire Rose RN 06/25/2025 3:48 PM Signed Patient's BP has been running low with dialysis, around 80/50's. They are asking for something to keep pressures up during his treatments. He is not taking anything for blood pressure Kristie Lees MA 06/26/2025 1:08 PM Signed Patient's daughterDejah is calling again in regards to the previous message. Please advise. Dejah's call back# [phone] Claire Rose RN 06/29/2025 10:48 AM Signed I called patient's daughter Dejah and she stated Dr Haile called her last Sunday and informed her that if given medication to increase the BP during dialyisis, his BP may go up too much. They should decrease the amount taken off during dialysis. Dejah stated over the weekend, they adjusted his dialysis solution and patient's SBP was 104. Tolerated much better Allergies As of Date: 06/25/2025 Noted Allergy Reaction AMLODIPINE 04/29/2021 7 - Swelling ASPIRIN 04/05/2020 14 - Other: See Comments Comments: tacchycardia CLAMS 08/27/2024 16 - Unknown KIWI 05/26/2025 2 - Rash METFORMIN 08/27/2024 5 - Intolerance VICTOZA (LIRAGLUTIDE) 2021 14 - Other: See Comments Date Reviewed: 06/15/2025 Reviewed by: Sukhdeep Lozada MA - Fully Assessed Reason for Visit: Patient Question [8087] Prescriptions as of 06/29/2025 - phenazopyridine (PYRIDIUM) 100 mg tablet Take 2 tablets by mouth three times a day. - sulfamethoxazole/trime thoprim (BACTRIM PO) Take 1 tablet by mouth two times a day. - OXYGEN, HOME THERAPY, Inhale 2 L/min as instructed continuous. - cholecalciferol (VITAMIN D) 1,000 unit tab tablet Take 1,000 Units by mouth once daily. - atorvastatin (LIPITOR) 80 mg tablet Take 1 tablet by mouth daily at bedtime. - clopidogrel (PLAVIX) 75 mg tablet Take 1 tablet by mouth every morning. - tamsulosin (FLOMAX) 0.4 mg Take 1 capsule by mouth once daily. - acetaminophen (TYLENOL) 325 mg tablet Take 2 tablets by mouth every 4 hours as needed for pain. - albuterol (PROVENTIL) 2.5 mg /3 mL (0.083 %) nebulizer solution Use 3 mL via nebulizer every 4 hours as needed for wheezing/shortness of breath. - MULTIVITAMIN-FERROUS FUMARATE-FOLIC ACID 18 MG-400 MCG TABLET Take 1 tablet by mouth daily with breakfast. - insulin glargine 100 unit/mL (3 mL) Inject 34 Units subcutaneously once daily. daily at 12 pm - aspirin 81 mg chewable tablet Take 1 tablet by mouth once daily. - B Complex-Vitamin C-Folic Acid (LENA-VIT) 0.8 mg tab Take 1 tablet by mouth once daily. - pantoprazole DR (PROTONIX) 20 mg tablet Take 1 tablet by mouth daily at 6 am. - insulin lispro (HUMALOG KWIKPEN INSULIN) 100 unit/mL Inject 4 units with breakfast, 3 units with lunch, 2 units with dinner plus sliding scale If Blood Glucose (mg/dL) is <110 Give 0 units 111-150 Give 1 units 151-200 Give 3 unit 201-250 Give 6 units 251-300 Give 9 units 301-350 Give 12 units 351-400 Give 15 units >400 Give 15 units and Call physician. 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.*04/29/2021 MACY (obstructive sleep apnea) [G47.33] 04/29/2021 History of echocardiogram [Z92.89] 03/18/2021 Atelectasis [J98.11] 06/09/2021 Interstitial pulmonary disease (HCC) [J84.9] 06/09/2021 History of echocardiography [Z92.89] 10/22/2021 History of cardiovascular stress test [Z92.89] 10/22/2021 Psoriasis [L40.9] 07/03/2022 MACY on CPAP [G47.33] 07/03/2022 DCM (dilated cardiomyopathy) (HCC) [I42.0] 01/02/2023 Chronic hypoxemic respiratory failure (HCC) [J9*01/02/2023 Chronic obstructive pulmonary disease (HCC) [J4*01/02/2023 Solitary pulmonary nodule [R91.1] 01/02/2023 Pulmonary nodules [R91.8] 04/19/2023 Class 2 severe obesity due to excess calories w*10/02/2023 Type 2 diabetes mellitus with stage 4 chronic k*10/02/2023 HLD (hyperlipidemia) [E78.5] Chronic HFrEF (heart failure with reduced eject*10/02/2023 Mitral regurgitation [I34.0] 10/02/2023 Pleural effusion [J90] 10/22/2023 Coronary artery disease involving [place] nixon*11/23/2023 Bilateral carotid artery stenosis [I65.23] 10/26/2023 Allergic rhinitis [J30.9] 02/14/2024 End-stage renal disease on peritoneal dialysis * Anemia of renal disease [N18.9, D63.1] 12/16/2024 Secondary hyperparathyroidism of renal origin (*12/16/2024 Acute on chronic combined systolic and diastoli*12/23/2024 Cardiomyopathy, ischemic [I25.5] 12/23/2024 Acute respiratory failure with hypoxia (HCC) [J*12/25/2024 05/28/2025 Azotemia [R79.89] (more content not included)... [facility] MR/Paulino 06-17-2025 MR/MARTIN [facility] [address] [place] [address] OFFICE VISIT Date of Service: 06/17/25 MR#: [id number] Acct: [id number] Name: PETE CONLEY Rep #: [id number] : 1950 Provider: Dr. Spencer Townsend MD Age/Sex: 75/M Location: [email or web address] Status: Signed Intake Vital Signs 09/15/24 15:03 06/17/25 15:52 Height 5 ft 11 in 5 ft 11 in BP 85/48 L Blood Pressure Location Lt brachial Position Sitting Respiration 16 Pulse 85 Pulse Source NIBP Temp 98.6 F Temp Source Temporal Pulse Oximetry (%) 92 Oxygen Delivery Method nasal canula Oxygen Flow Rate (L/min) 2 Intake Visit Reasons: CONSULT FOR ACCESS PLACEMENT Gastroenterologist Required: No Accompanied by: Daughter Is patient in pain?: Yes (buttock) Pain scale (1-10): 4 Allergies aspirin Allergy (Verified 06/17/25 15:42) Flares up heart Medications ???Medication ???Instructions ???Recorded ???Confirmed ???Type atorvastatin 80 mg tablet 80 mg PO QHS HLD 09/15/24 06/17/25 History cholecalciferol (vitamin D3) 25 25 mcg PO QDAY SUPPLEMENT 09/15/24 06/17/25 History mcg (1,000 unit) tablet insulin glargine 100 unit/mL 12 unit subcut BID DM 09/15/24 History subcutaneous solution (Lantus U-100 Insulin) insulin lispro 100 unit/mL 6 unit subcut BID DM 09/15/2405/21 History subcutaneous solution (Humalog U-100 Insulin) tamsulosin 0.4 mg capsule 0.4 mg PO DAILY BPH 09/15/2406/17 History multivitamin (Daily Multi-Vitamin 1 tab PO DAILY SUPPLEMENT 5 06/17/25 History tablet) aspirin 81 mg tablet,delayed 81 mg PO QDAY 06/17/25 06/17/25 Hi story release (Adult Aspirin Regimen) clopidogrel 75 mg tablet 75 mg PO DAILY BLOOD THINNER 06/1706/17/25 History pantoprazole 20 mg tablet,delayed 20 mg PO QDAY 06/17/25 06/17/25 H istory release karlos-rissa PO QDAY 06/17/25 History Have you fallen in the past year?: No [facility] History Presence of combination internal cardiac defibrillator (ICD) and pacemaker MRSA (methicillin resistant staph aureus) culture positive Wears hearing aid Loss of hearing Wears glasses Walker as ambulation aid End stage chronic kidney disease History of renal dialysis History of renal disease High cholesterol Back pain Syncope Former smoker CPAP (continuous positive airway pressure) dependence Sleep apnea Leg cramps History of echocardiogram History of stress test Cardiology follow-up encounter Hypertension Kidney failure Dialysis patient Congestive heart failure Amputation of right foot Diabetes Surgical History History of open heart surgery History of cardiac catheterization Family History Other Diabetes Social History Smoking Status: Former smoker HPI HPI HPI: PETE CONLEY, is a 75 M who presents to the office today for evaluation for dialysis access. He has been doing peritoneal dialysis for the past few years but since his open heart surgery earlier this year his remnant renal function has significantly decline. He has a left chest wall pacer/AICD, no prior clavicle/arm fracture/DVT/node removal. Right hand dominant. Home O2; has been on for years, increased need since heart surgery. ROS General General: Yes fatigue; No weight change, colon cancer or breast cancer HEENT HEENT: No difficulty swallowing, eye injury, eye surgery, swollen glands or hoarseness Endo Endocrine: Yes diabetes mellitus; No thyroid disease or thyroid cancer Skin Skin: No rash or changing moles Musc Musculoskeletal: Yes back problems and joint pain; No arthritis, rheumatoid arthritis or gout Cardio Cardiovascular: Yes pacemaker, heart disease, heart attack and heart stent; No murmur, atrial fibrillation, high blood pressure or palpitations Psych Psychiatric: No depression or anxiety Resp Respiratory: Yes shortness of breath, Yes sleep apnea, Yes cough (Occ), No COPD, No asthma and No emphysema Gastro Gastrointestinal: No abdominal pain, No nausea or vomiting, No diarrhea, No constipation, No blood in stool, Yes acid reflux, No hemorrhoids, No ulcers, No gallbladder problem and No black,tarry stools Ha Hematologic: Yes blood thinners, No blood disorders, No bleeding, No anemia and No blood clots Neuro Neurologic: No tingling Exam Const General: cooperative, healthy appearing, comfortable, no acute distress and well developed Nutritional Appearance: well nourished Orientation: alert, awake and oriented x3 HENMT Head: normocephalic and atraumatic Ears: h (more content not included)... Normal [facility] 06-15-2025 [facility] Office Visit (CAUNDO ) PETE CONLEY ([id number]) 1950 M Date Time Provider Department 06/15/25 1:00 PM MANSOOR HAILE During your visit today, we recorded the following information about you: Pulse Blood pressure Weight Height 82/minute 122/54 104.3 kg 1.803 m Mansoor Haile MD 06/15/2025 2:02 PM Addendum Referring Provider: No ref. provider found Date: June 11, 2025 Chief Complaint: Hospital F/U ([facility] f/u CHF had CABG and valve repair 12/07/24 [facility]) HISTORY OF PRESENT ILLNESS: Pete Conley is a 75 year old male who presents with daughter Dejah for follow-up of history of CABG plus valve repair on December 07, 2024 at [facility]. Also history of the patient 01/13/2025 for complete heart block. IMAGES: EKG: Last EKG Result Conclusion ECG COMPLETE Collected: 05/26/2025 5:20 PM (Final result) Impression: Ventricular-paced rhythm Abnormal ECG When compared with ECG of 21-May-2025 16:02, Vent. rate has decreased by 4 bpm Confirmed by CANDIDA LAMA MD ([id number]) on 05/26/2025 5:51:58 PM ECHO: Recent Results (from the past 4464 hours) ECHO Collection Time: 04/06/25 10:47 AM Impression CONCLUSIONS: - Exam indication: H/O CABG AND MVr - The left ventricle is moderately dilated. Left ventricular systolic function is severely decreased. EF = 25 ? 5% (2D 4-ch.) Definity contrast used for endocardial border detection. - The right ventricle is dilated. Right ventricular systolic function is mildly decreased. - The left atrial cavity is severely dilated. - The right atrial cavity is dilated. - 3D profile (size #32). There is moderately severe (3+) mitral valve regurgitation. The peak gradient is 9 mmHg and the mean gradient is 4 mmHg. Prior gradients were 14/9 mmHg. Today's gradients were obtained at 81 bpm. - Estimated right ventricular systolic pressure is 57 mmHg consistent with moderate pulmonary hypertension. Estimated right atrial pressure is 15 mmHg based on IVC assessment. - Exam was compared with the prior echocardiographic exam performed on 01/02/2025. MR appears progressed. * * * Final * * * LAST STRESS TEST: Last Stress / NM / PET NM PET/CT CARDIAC PERF REST/STRESS Exam End: 12/19/2024 12:28 PM (Final result) Narrative: * * *Final Report* * * DATE OF EXAM: Dec 19 2024 12:28PM [facility] [id number] - NM PET/CT CARD PERF REST/STRESS / PROCEDURE REASON: Cardiomyopathy, follow up * * * * Physician Interpretation * * * * Stress Stone Gang Sawyer Report: [place] [id number] Date of service: 12/19/2024 10:51:31 AM Supervising physician: Claudia Morales MD PATIENT: Name: PETE CONLEY Age: 74 years Gender: M The supervising physician was in the department and immediately available. * * * Final * * * ------ PATIENT: Name: PETE CONLEY Age: 74 years Gender: M CONCLUSIONS: 1. PET Perfusion Study: Abnormal. 2. There is moderate (10-20%) ischemia in the territory of the LCX. 3. There is mild (<10%) ischemia in the territory of the LAD. 4. There is mild (<10%) ischemia in the territory of the RCA. 5. There is transient ischemic dilation of the LV cavity with stress. 6. No evidence of scarred or hibernating myocardium; nearly all myocardium appears viable. 7. Left ventricle is moderately dilated. The left ventricle systolic function is severely decreased. 8. Right ventricle is mildly dilated. The right ventricle systolic function is normal. 9. This is a high risk scan due to area of scar/ischemia, calculated LVEF and TID. Gated Stress TOF:SC:CTAC Gated Rest TOF:SC:CTAC LVEF % 26 23 Prior Study Comparison No prior nuclear cardiology exam available for comparison. Nuclear Med Report:Gated Rb-82 Regadenoson Stress PET and FDG Viability Study: The patient was injected with Rb-82 at rest, and ECG gated tomographic images were obtained. Approximately 10 minutes later, the patient received 0.4 mg of regadenoson, via rapid IV push, immediately followed by Rb-82 30 seconds after starting the regadenoson infusion; and ECG gated tomographic images were obtained. See administered doses below. At rest, the blood glucose was 152 mg/dl. [facility] Date of service: 12/19/2024 10:51:31 AM Ordering Physician: TEVIN QUIÑONEZ. Requesting Physician: TEVIN QUIÑONEZ Indication: Viability/ischemia assessment in ischemic cardiomyopathy Fellow: Maynor Leiva MD Interpreting physician: Claudia Morales MD Previous Cardiovascular Interventions: Diagnostic cath (12/15/2024) Height: 180.34 cm BSA: 2.36 m? Weight: 111.59 kg BMI: 34.3 kg/m? CT Dose-L (more content not included)... [facility] PETE CONLEY ([id number]) 1950 M Date Time Provider Department 06/15/25 MANSOOR HAILE During your visit today, we recorded the following information about you: Dejah Alexander 06/15/2025 2:13 PM Signed Patient is being referred for his AICD. He would like to establish with [facility] for this Thank you! Peter Fernandez RN 06/19/2025 3:21 PM Signed Reviewed with Dr. Maciel. Please offer Mr. Conley an appointment with Dr. Maciel on 10/01/2025 at 2:00 pm. If he accepts this appointment, please add him to the Device [facility] schedule at the same time, as well. Thank you, Peter Fernandez RN June 19, 2025 3:20 PM Peter Fernandez RN 06/19/2025 3:29 PM Signed Mr. Conley has been scheduled an appointment with Dr. Maciel on 10/01/2025 at 2:00 pm with a concurrent device check. Peter Fernandez RN June 19, 2025 3:29 PM Allergies As of Date: 06/15/2025 Noted Allergy Reaction AMLODIPINE 04/29/2021 7 - Swelling ASPIRIN 04/05/2020 14 - Other: See Comments Comments: tacchycardia CLAMS 08/27/2024 16 - Unknown KIWI 05/26/2025 2 - Rash METFORMIN 08/27/2024 5 - Intolerance VICTOZA (LIRAGLUTIDE) 2021 14 - Other: See Comments Date Reviewed: 06/15/2025 Reviewed by: Sukhdeep Lozada MA - Fully Assessed Reason for Visit: Consult [502] Prescriptions as of 06/19/2025 - phenazopyridine (PYRIDIUM) 100 mg tablet Take 2 tablets by mouth three times a day. - sulfamethoxazole/trime thoprim (BACTRIM PO) Take 1 tablet by mouth two times a day. - OXYGEN, HOME THERAPY, Inhale 2 L/min as instructed continuous. - cholecalciferol (VITAMIN D) 1,000 unit tab tablet Take 1,000 Units by mouth once daily. - atorvastatin (LIPITOR) 80 mg tablet Take 1 tablet by mouth daily at bedtime. - clopidogrel (PLAVIX) 75 mg tablet Take 1 tablet by mouth every morning. - tamsulosin (FLOMAX) 0.4 mg Take 1 capsule by mouth once daily. - acetaminophen (TYLENOL) 325 mg tablet Take 2 tablets by mouth every 4 hours as needed for pain. - albuterol (PROVENTIL) 2.5 mg /3 mL (0.083 %) nebulizer solution Use 3 mL via nebulizer every 4 hours as needed for wheezing/shortness of breath. - MULTIVITAMIN-FERROUS FUMARATE-FOLIC ACID 18 MG-400 MCG TABLET Take 1 tablet by mouth daily with breakfast. - insulin glargine 100 unit/mL (3 mL) Inject 34 Units subcutaneously once daily. daily at 12 pm - aspirin 81 mg chewable tablet Take 1 tablet by mouth once daily. - B Complex-Vitamin C-Folic Acid (LENA-VIT) 0.8 mg tab Take 1 tablet by mouth once daily. - pantoprazole DR (PROTONIX) 20 mg tablet Take 1 tablet by mouth daily at 6 am. - insulin lispro (HUMALOG KWIKPEN INSULIN) 100 unit/mL Inject 4 units with breakfast, 3 units with lunch, 2 units with dinner plus sliding scale If Blood Glucose (mg/dL) is <110 Give 0 units 111-150 Give 1 units 151-200 Give 3 unit 201-250 Give 6 units 251-300 Give 9 units 301-350 Give 12 units 351-400 Give 15 units >400 Give 15 units and Call physician. 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.*04/29/2021 MACY (obstructive sleep apnea) [G47.33] 04/29/2021 History of echocardiogram [Z92.89] 03/18/2021 Atelectasis [J98.11] 06/09/2021 Interstitial pulmonary disease (HCC) [J84.9] 06/09/2021 History of echocardiography [Z92.89] 10/22/2021 History of cardiovascular stress test [Z92.89] 10/22/2021 Psoriasis [L40.9] 07/03/2022 MACY on CPAP [G47.33] 07/03/2022 DCM (dilated cardiomyopathy) (HCC) [I42.0] 01/02/2023 Chronic hypoxemic respiratory failure (HCC) [J9*01/02/2023 Chronic obstructive pulmonary disease (HCC) [J4*01/02/2023 Solitary pulmonary nodule [R91.1] 01/02/2023 Pulmonary nodules [R91.8] 04/19/2023 Class 2 severe obesity due to excess calories w*10/02/2023 Type 2 diabetes mellitus with stage 4 chronic k*10/02/2023 HLD (hyperlipidemia) [E78.5] Chronic HFrEF (heart failure with reduced eject*10/02/2023 Mitral regurgitation [I34.0] 10/02/2023 Pleural effusion [J90] 10/22/2023 Coronary artery disease involving [place] nixon*11/23/2023 Bilateral carotid artery stenosis [I65.23] 10/26/2023 Allergic rhinitis [J30.9] 02/14/2024 End-stage renal disease on peritoneal dialysis * Anemia of renal disease [N18.9, D63.1] 12/16/2024 Secondary hyperparathyroidism of renal origin (*12/16/2024 Acute on chronic combined systolic and diastoli*12/23/2024 Cardiomyopathy, ischemic [I25.5] 12/23/2024 Acute respiratory failure with hypoxia (HCC) [J*12/25/2024 05/28/2025 Azotemia [R79.89] 12/25/2024 Obesity, Class I, BMI 30-34.9 [E66.811] 12/25/2024 Postoperative pain [G89.18] 12/25/2024 01/07/2025 On mechanicall (more content not included)... Normal [facility] ECG COMPLETEon 06-15-2025 ECG COMPLETE Ventricular Rate : 8 2 BPM Atrial Rate : 82 BPM QRS Duration : 194 ms Q-T Interval : 506 ms QTC Calculation(Bazett) : 591 ms Calculated R Dutton : 266 degrees Calculated T Dutton : 91 degrees Ventricular-paced rhythm Abnormal ECG When compared with ECG of 26-May-2025 17:20, Vent. rate has decreased by 8 bpm Confirmed by TRISTAN ALEXANDER DO ([id number]) on 06/21/2025 4:11:34 AM NAME : PETE CONLEY PID : [id number] : 1950 Gender : Male Race : ORD : [id number] Procedure Date : Jun 15 2025 13:24:45 Edit Date : Jun 21 2025 04:11:35 Diagnosis: Ventricular-paced rhythm Abnormal ECG When compared with ECG of 26-May-2025 17:20, Vent. rate has decreased by 8 bpm Confirmed by TRISTAN ALEXANDER DO ([id number]) on 06/21/2025 4:11:34 AM Test Reason : HCS Location : 2 : [place] Overread By : TRISTAN ALEXANDER DO Edited By : TRISTAN ALEXANDER DO Referred By : , Acquired by : , [facility] XR CHEST 2V FRONTAL/LATon XR CHEST 2V FRONTAL/LAT * * *Final Report* * * DATE OF EXAM: Jun 15 2025 2:30PM UDX 5291 - XR CHEST 2V FRONTAL/LAT / PROCEDURE REASON: multiple diagnoses * * * * Physician Interpretation * * * * EXAMINATION: CHEST RADIOGRAPH (2 VIEW FRONTAL and LATERAL) CLINICAL HISTORY: Acute HFrEF (heart failure with reduced ejection fraction) ([facility]) ESRD (end stage renal disease) on dialysis ([facility]) MQ: XC2_6 EXAM DATE/TIME: 06/15/2025 2:30 PM COMPARISON: 05/27/2025 RESULT: Lines, tubes, and devices: Stable left subclavian ICD in place. Status post sternotomy. Lungs and pleura: No consolidation. No evidence of significant pulmonary edema. No pleural effusion. No pneumothorax. Cardiomediastinal silhouette: Stable cardiomediastinal silhouette. Bones and soft tissues: Stable diffuse osteopenia. IMPRESSION: No acute radiographic abnormality. Director Game: PSCAngelica Transcribe Date/Time: Jun 16 2025 2:46P Dictated by : ALEX MCKINNON MD This examination was interpreted and the report reviewed and electronically signed by: ALEX MCKINNON MD on Jun 16 2025 2:49PM EST [id number] [facility] Dialysis Vein Map PRE-OP JOSE A ATon 06-09-2025 Dialysis Vein Map PRE-OP BILAT [facility] [place] [address] Dialysis Vein Map PRE-OP BILAT 06/09/25 1107 MR#: [id number] Acct: [id number] Name: PETE CONLEY Rep #: [id number] : 1950 75 From: Spencer Townsend MD Attending Dr: Dr. Dolores Welsh MD Sta tus: REG CLI Ordering Dr: Dolores Welsh MD Date: 06/09 Location: CVS Sex: M C Admitted: Reason For Study Reason For Study: Pre -op AVF Right Lower Arm Left Arm Proximal Radial artery diameter 0.15 x 0.17 mm. Left Brachial artery diameter 0.43 x 0.45 mm. Proximal Radial artery waveform is biphasic . Left Brachial artery waveform is triphasic . Radial A PSV - 20.8 cm/s Brachial A PSV - 64.7 cm/s. Heterogenous irregular plaque noted throughout Radial Cephalic Vein at distal forearm measures 0.22 x 0.22 Artery. cm. Right Arm Cephalic Vein at mid forearm measures 0.23 x 0.26 cm. Right Brachial artery diameter 0.48 x 0.46 mm. Cephalic Vein proximal forearm measures 0.15 x 0.17 Right Brachial artery waveform is triphasic . cm. Brachial A PSV - 47.1 cm/s. Cephalic Vein distal upper arm measures 0.49 x 0.53 Cephalic Vein at distal forearm measures 0.15 x 0.14 cm. cm. Cephalic Vein at mid upper arm measures 0.47 x 0.48 Cephalic Vein at mid forearm measures 0.19 x 0.22 cm. cm. Cephalic Vein proximal forearm measures 0.15 x 0.17 Cephalic Vein at proximal upper arm measures 0.40 x cm. 0.44 cm. Cephalic Vein distal upper arm measures 0.43 x 0.46 Mid Basilic vein measures 0.52 x 0.54 cm. cm. Proximal Basilic vein measures 0.45 x 0.44 cm. Cephalic vein at mid upper arm depth measures 0.40 x Distal Basilic vein measures 0.38 x 0.41 cm. 0.40 cm. Left Lower Arm Cephalic Vein at mid upper arm measures 0.43 x 0.41 Proximal Radial artery diameter 0.14 x 0.16 mm. cm. Proximal Radial artery waveform is triphasic . Proximal Basilic vein depth measures 0.42 x 0.47 cm. Radial A PSV - 43.5 cm/s Mid Basilic vein depth measures 0.41 x 0.43 cm. Heterogenous irregular plaque noted throughout Radial Distal Basilic vein depth measures 0.22 x 0.20 cm. Artery. Procedure This was a bilateral upper extremity venous doppler examination. Exam performed in department. The exam was diagnostic. VL/Dialysis Vein Map PRE-OP BILAT Interpretation Summary Bilateral upper extremity veins patent with measurements above. Bilateral upper extremity veins patent with normal waveforms and measurements above. Ordering Physician: Dolores Welsh Referring Physician: Moises Prater Performed By: Param Mosley RVT and Student ??? 06/09/25 1149 Date Spencer Townsend MD CC: Dr. Dolores Welsh MD; Dr. Moises Prater MD Date Dictated: 06/09/257 Date Transcribed: 06/09/25 818 Director Game: Signed [facility] 05-29-2025 [facility] Telephone (CAUNDO) PETE CONLEY ([id number]) 1950 M Date Time Provider Department 05/29/25 MAREN OROSCO During your visit today, we recorded the following information about you: Maren Orosco APRN.CNP 05/29/2025 1:44 PM Signed HFU in 1-2 weeks for CHF/ESRD Юлия Torres Tech 06/01/2025 1:42 PM Signed Spoke with patient's daughter Dejah and scheduled patient for 06/15/25 at 1:00 pm. She will let us know if patient does not want this appoiontment Allergies As of Date: 05/29/2025 Noted Allergy Reaction AMLODIPINE 04/29/2021 7 - Swelling ASPIRIN 04/05/2020 14 - Other: See Comments Comments: tacchycardia CLAMS 08/27/2024 16 - Unknown KIWI 05/26/2025 2 - Rash METFORMIN 08/27/2024 5 - Intolerance VICTOZA (LIRAGLUTIDE) 2021 14 - Other: See Comments Date Reviewed: 05/26/2025 Reviewed by: Jodi Edouard RN - Fully Assessed Reason for Visit: Hospital F/U [57] Prescriptions as of 06/01/2025 - cholecalciferol (VITAMIN D) 1,000 unit tab tablet Take 1,000 Units by mouth once daily. - atorvastatin (LIPITOR) 80 mg tablet Take 1 tablet by mouth daily at bedtime. - clopidogrel (PLAVIX) 75 mg tablet Take 1 tablet by mouth every morning. - tamsulosin (FLOMAX) 0.4 mg Take 1 capsule by mouth once daily. - acetaminophen (TYLENOL) 325 mg tablet Take 2 tablets by mouth every 4 hours as needed for pain. - albuterol (PROVENTIL) 2.5 mg /3 mL (0.083 %) nebulizer solution Use 3 mL via nebulizer every 4 hours as needed for wheezing/shortness of breath. - MULTIVITAMIN-FERROUS FUMARATE-FOLIC ACID 18 MG-400 MCG TABLET Take 1 tablet by mouth daily with breakfast. - insulin glargine 100 unit/mL (3 mL) Inject 34 Units subcutaneously once daily. daily at 12 pm - aspirin 81 mg chewable tablet Take 1 tablet by mouth once daily. - B Complex-Vitamin C-Folic Acid (LENA-VIT) 0.8 mg tab Take 1 tablet by mouth once daily. - pantoprazole DR (PROTONIX) 20 mg tablet Take 1 tablet by mouth daily at 6 am. - insulin lispro (HUMALOG KWIKPEN INSULIN) 100 unit/mL Inject 4 units with breakfast, 3 units with lunch, 2 units with dinner plus sliding scale If Blood Glucose (mg/dL) is <110 Give 0 units 111-150 Give 1 units 151-200 Give 3 unit 201-250 Give 6 units 251-300 Give 9 units 301-350 Give 12 units 351-400 Give 15 units >400 Give 15 units and Call physician. 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.*04/29/2021 MACY (obstructive sleep apnea) [G47.33] 04/29/2021 History of echocardiogram [Z92.89] 03/18/2021 Atelectasis [J98.11] 06/09/2021 Interstitial pulmonary disease (HCC) [J84.9] 06/09/2021 History of echocardiography [Z92.89] 10/22/2021 History of cardiovascular stress test [Z92.89] 10/22/2021 Psoriasis [L40.9] 07/03/2022 MACY on CPAP [G47.33] 07/03/2022 DCM (dilated cardiomyopathy) (HCC) [I42.0] 01/02/2023 Chronic hypoxemic respiratory failure (HCC) [J9*01/02/2023 Chronic obstructive pulmonary disease (HCC) [J4*01/02/2023 Solitary pulmonary nodule [R91.1] 01/02/2023 Pulmonary nodules [R91.8] 04/19/2023 Class 2 severe obesity due to excess calories w*10/02/2023 Type 2 diabetes mellitus with stage 4 chronic k*10/02/2023 HLD (hyperlipidemia) [E78.5] Chronic HFrEF (heart failure with reduced eject*10/02/2023 Mitral regurgitation [I34.0] 10/02/2023 Pleural effusion [J90] 10/22/2023 Coronary artery disease involving [place]*11/23/2023 Bilateral carotid artery stenosis [I65.23] 10/26/2023 Allergic rhinitis [J30.9] 02/14/2024 End-stage renal disease on peritoneal dialysis * Anemia of renal disease [N18.9, D63.1] 12/16/2024 Secondary hyperparathyroidism of renal origin (*12/16/2024 Acute on chronic combined systolic and diastoli*12/23/2024 Cardiomyopathy, ischemic [I25.5] 12/23/2024 Acute respiratory failure with hypoxia (HCC) [J*12/25/2024 05/28/2025 Azotemia [R79.89] 12/25/2024 Obesity, Class I, BMI 30-34.9 [E66.811] 12/25/2024 Postoperative pain [G89.18] 12/25/2024 01/07/2025 On mechanically assisted ventilation (HCC) [Z99*12/25/2024 01/06/2025 Anterior and posterior fascicular blocks and in*12/25/2024 Lactic acidosis [E87.20] 12/26/2024 01/06/2025 Severe protein-calorie malnutrition (HCC) [E43] 12/28/2024 01/15/2025 Dysphagia [R13.10] 12/29/2024 Controlled type 2 diabetes mellitus with hyperg*12/31/2024 On tube feeding diet [Z78.9] 12/31/2024 Encounter for continuous ambulatory peritoneal *01/05/2025 Encounter for CCPD (continuous cycling peritone*01/08/2025 ESRD on peritoneal dialysis (HCC) [N18.6, Z99.2]01/08/2025 CHB (complete heart block) (HCC) [I44.2] 01/10/2025 Post-op pain [G89.18] 01/10/2025 Other hypotension [I95.89] (more content not included)... Normal [facility] CBC W Auto Differential pane l (Bld)on 05-28-2025 Basophils (Bld) [#/Vol] 0.07 10*3/uL Normal <0.11 [facility] Comment on above: Order Comment: Speci men Type: BLOOD SPECIMEN Ordering Facility: [facility] Address: [address] [place] [address] Performed By: #### 5 7021-8 #### [facility] CLIA [id number] [address] [place] [address] [place] #### [id number] #### [facility] CLIA [id number] [address] [place] [address] [place] Basophils/100 WBC (Bld) 0.7 % Normal [facility] Comment on above: Order Comment: Speci men Type: BLOOD SPECIMEN Ordering Facility: [facility] Address: [address] [place] [address] Performed By: #### 5 7021-8 #### [facility] CLIA [id number] [address] [place] [address] [place] #### 82643-4 #### [facility] CLIA [id number] [address] [place] [address] [place] Differential cell count method Nom (Bld) Auto Normal [facility] Comment on above: Order Comment: Speci men Type: BLOOD SPECIMEN Ordering Facility: [facility] Address: [address] [place] [address] Performed By: #### 5 7021-8 #### [facility] CLIA [id number] [address] [place] [address] [place] #### 83609-8 #### [facility] CLIA [id number] [address] [place] [address] [place] Eosinophils (Bld) [#/Vol] 0.35 10*3/uL Normal <0.46 [facility] Comment on above: Order Comment: Speci men Type: BLOOD SPECIMEN Ordering Facility: [facility] Address: [address] [place] [address] Performed By: #### 5 7021-8 #### [facility] CLIA [id number] [address] [place] [address] [place] #### 98549-6 #### [facility] CLIA [id number] [address] [place] [address] [place] Eosinophils/100 WBC (Bld) 3.4 % Normal [facility] Comment on above: Order Comment: Speci men Type: BLOOD SPECIMEN Ordering Facility: [facility] Address: [address] [place] [address] Performed By: #### 5 7021-8 #### [facility] CLIA [id number] [address] [place] [address] [place] #### 83865-5 #### [facility] CLIA [id number] [address] [place] [address] [place] Erythrocyte distribution width (RBC) [Ratio] 15.2 % High 11.5-15.0 [facility] Comment on above: Order Comment: Speci men Type: BLOOD SPECIMEN Ordering Facility: [facility] Address: [address] [place] [address] Performed By: #### 5 7021-8 #### [facility] CLIA [id number] [address] [place] [address] [place] #### 05559-8 #### [facility] CLIA [id number] [address] [place] [address] [place] Hematocrit (Bld) [Volume fraction] 30.7 % Low 39.0-51.0 [facility] Comment on above: Order Comment: Speci men Type: BLOOD SPECIMEN Ordering Facility: [facility] Address: [address] [place] [address] Performed By: #### 5 7021-8 #### [facility] CLIA [id number] [address] [place] [address] [place] #### 40021-4 #### [facility] CLIA [id number] [address] [place] [address] [place] Hemoglobin (Bld) [Mass/Vol] 10.4 g/dL Low 13.0-17.0 [facility] Comment on above: Order Comment: Speci men Type: BLOOD SPECIMEN Ordering Facility: [facility] Address: [address] [place] [address] Performed By: #### 5 7021-8 #### [facility] CLIA [id number] [address] [place] [address] [place] #### 41896-0 #### [facility] CLIA [id number] [address] [place] [address] [place] Immature granulocytes (Bld) [#/Vol] 0.11 10*3/uL High <0.10 [facility] Comment on above: Order Comment: Speci men Type: BLOOD SPECIMEN Ordering Facility: [facility] Address: [address] [place] [address] Performed By: #### 5 7021-8 #### [facility] CLIA [id number] [address] [place] [address] [place] #### 53685-2 #### [facility] CLIA [id number] [address] [place] [address] [place] Immature granulocytes/100 WBC (Bld) 1.1 % Normal [facility] Comment on above: Order Comment: Speci men Type: BLOOD SPECIMEN Ordering Facility: [facility] Address: [address] [place] [address] Performed By: #### 5 7021-8 #### [facility] CLIA [id number] [address] [place] [address] [place] #### 80035-5 #### [facility] CLIA [id number] [address] [place] [address] [place] Lymphocytes (Bld) [#/Vol] 1.26 10*3/uL Normal 1.00-4.00 [facility] Comment on above: Order Comment: Speci men Type: BLOOD SPECIMEN Ordering Facility: [facility] Address: [address] [place], [place] [address] Performed By: #### 5 7021-8 #### [facility] CLIA [id number] [address] [place] [address] [place] #### 81312-0 #### [facility] CLIA [id number] [address] [place] [address] [place] Lymphocytes/100 WBC (Bld) 12.2 % Normal [facility] Comment on above: Order Comment: Speci men Type: BLOOD SPECIMEN Ordering Facility: [facility] Address: [address] [place] [address] Performed By: #### 5 7021-8 #### [facility] CLIA [id number] [address] [place] [address] [place] #### 86387-9 #### [facility] CLIA [id number] [address] [place] [address] [place] MCH (RBC) [Entitic mass] 30.7 pg Normal 26.0-34.0 [facility] Comment on above: Order Comment: Speci men Type: BLOOD SPECIMEN Ordering Facility: [facility] Address: [address] [place] [address] Performed By: #### 5 7021-8 #### [facility] CLIA [id number] [address] [place] [address] [place] #### 43123-0 #### [facility] CLIA [id number] [address] [place] [address] [place] MCHC (RBC) [Mass/Vol] 33.9 g/dL Normal 30.5-36.0 [facility] Comment on above: Order Comment: Speci men Type: BLOOD SPECIMEN Ordering Facility: [facility] Address: [address] [place] [address] Performed By: #### 5 7021-8 #### [facility] CLIA [id number] [address] [place] [address] [place] #### 96330-5 #### [facility] CLIA [id number] [address] [place] [address] [place] MCV (RBC) [Entitic vol] 90.6 fL Normal 80.0-100.0 [facility] Comment on above: Order Comment: Speci men Type: BLOOD SPECIMEN Ordering Facility: [facility] Address: [address] [place] [address] Performed By: #### 5 7021-8 #### [facility] CLIA [id number] [address] [place] [address] [place] #### 00096-4 #### [facility] CLIA [id number] [address] [place] [address] [place] Monocytes (Bld) [#/Vol] 1.52 10*3/uL High <0.87 [facility] Comment on above: Order Comment: Speci men Type: BLOOD SPECIMEN Ordering Facility: [facility] Address: [address] [place] [address] Performed By: #### 5 7021-8 #### [facility] CLIA [id number] [address] [place] [address] [place] #### 81854-7 #### [facility] CLIA [id number] [address] [place] [address] [place] Monocytes/100 WBC (Bld) 14.7 % Normal [facility] Comment on above: Order Comment: Speci men Type: BLOOD SPECIMEN Ordering Facility: [facility] Address: [address] [place] [address] Performed By: #### 5 7021-8 #### [facility] CLIA [id number] [address] [place] [address] [place] #### 00927-8 #### [facility] CLIA [id number] [id number] [address] [place] Neutrophils (Bld) [#/Vol] 7.02 10*3/uL Normal 1.45-7.50 [facility] Comment on above: Order Comment: Speci men Type: BLOOD SPECIMEN Ordering Facility: [facility] Address: [address] [place] [address] Performed By: #### 5 7021-8 #### [facility] CLIA [id number] [address] [place] [address] [place] #### 00933-9 #### [facility] CLIA [id number] [address] [place] [address] [place] Neutrophils/100 WBC (Bld) 67.9 % Normal [facility] Comment on above: Order Comment: Speci men Type: BLOOD SPECIMEN Ordering Facility: [facility] Address: [address] [place] [address] Performed By: #### 5 7021-8 #### [facility] CLIA [id number] [address] [place] [address] [place] #### 70125-2 #### [facility] CLIA [id number] [address] [place] [address] [place] Nucleated RBC (Bld) [#/Vol] 10*3/uL Normal <0.01 [facility] Comment on above: Order Comment: Speci men Type: BLOOD SPECIMEN Ordering Facility: [facility] Address: [address] [place] [address] Performed By: #### 5 7021-8 #### [facility] CLIA [id number] [address] [place] [address] [place] #### 17677-7 #### [facility] CLIA [id number] [address] [place] [address] [place] Nucleated RBC/100 WBC (Bld) [Ratio] 0.0 /100 WBC Normal [facility] Comment on above: Order Comment: Speci men Type: BLOOD SPECIMEN Ordering Facility: [facility] Address: [address] [place] [address] Performed By: #### 5 7021-8 #### [facility] CLIA [id number] [address] [place] [address] [place] #### 68031-7 #### [facility] CLIA [id number] [address] [place] [address] [place] Platelet mean volume (Bld) [Entitic vol] 10.0 fL Normal 9.0-12.7 [facility] Comment on above: Order Comment: Speci men Type: BLOOD SPECIMEN Ordering Facility: [facility] Address: [address] [place] [address] Performed By: #### 5 7021-8 #### [facility] CLIA [id number] [address] [place] [address] [place] #### 51702-6 #### [facility] CLIA [id number] [address] [place] [address] [place] Platelets (Bld) [#/Vol] 176 10*3/uL Normal 150-400 [facility] Comment on above: Order Comment: Speci men Type: BLOOD SPECIMEN Ordering Facility: [facility] Address: [address] [place] [address] Performed By: #### 5 7021-8 #### [facility] CLIA [id number] [address] [place] [address] [place] #### 19172-8 #### [facility] CLIA [id number] [address] [place] [address] [place] RBC (Bld) [#/Vol] 3.39 10*6/uL Low 4.20-6.00 [facility] Comment on above: Order Comment: Speci men Type: BLOOD SPECIMEN Ordering Facility: [facility] Address: [address] [place] [address] Performed By: #### 5 7021-8 #### [facility] CLIA [id number] [address] [place] [address] [place] #### 38001-8 #### [facility] CLIA [id number] [address] [place] [address] [place] WBC (Bld) [#/Vol] 10.33 10*3/uL Normal 3.70-11.00 [facility] Comment on above: Order Comment: Speci men Type: BLOOD SPECIMEN Ordering Facility: [facility] Address: [address] [place] [address] Performed By: #### 5 7021-8 #### [facility] CLIA [id number] [address] [place] [address] [place] #### 78439-1 #### [facility] CLIA [id number] [address] [place] [address] STATES [facility] CNDSon 05-28-2025 [facility] HNO ID: [id number] Author: STEFFI SALAMANCA APRN.COMPUTER METEOROLOGIST Service: Hospital Medicine Author Type: Nurse Practitioner Type: Discharge Summary Filed: 05/28/2025 13:14 Note Text: DISCHARGE SUMMARY PATIENT NAME: Pete Conley ADMISSION DATE: 05/26/2025 DISCHARGE DATE: 05/28/2025 ATTENDING PHYSICIAN: Rk Gan MD Code Status: Full Code Highest Readmission Risk Score: 23 The 30 day readmissions risk score is derived from an internally validated risk model which evaluates patient level characteristics, utilization history, medication orders and lab results up until the day of discharge. Patients with a score of 39 or above are considered highest risk for readmission. Specific patient level drivers will be listed at the bottom of the summary. CONSULTING TEAMS DURING HOSPITALIZATION: Treatment Team: Attending Provider: Rk Gan MD Consulting: Candida Russ MD Attending: RADHA NAVA Consulting: Tristan Alexander DO REASON FOR HOSPITALIZATION: Short of breath FINAL DIAGNOSIS: Pulmonary edema, ESRD on peritoneal dialysis, acute HFrEF Active Hospital Problems Diagnosis POA Pulmonary edema (HCC) Yes Hyponatremia Yes ESRD on peritoneal dialysis (HCC) Yes Type 2 diabetes mellitus with hyperglycemia, with long-term current use of insulin (HCC) Yes Hypertension Yes Type 2 myocardial infarction (HCC) Yes Acute HFrEF (heart failure with reduced ejection fraction) ([facility]) Unknown Resolved Hospital Problems Diagnosis POA Dyspnea Yes Acute respiratory failure with hypoxia (HCC) Yes Exogenous Class 1 Obesity OPERATIONS DURING HOSPITALIZATION: None PROCEDURES DURING HOSPITALIZATION: No procedures performed HOSPITAL COURSE: 75-year-old male with pertinent history of ESRD on peritoneal dialysis, multivessel coronary artery disease status post CABG, ischemic cardiomyopathy status post AGRICULTURAL ENGINEERING TECHNICIAN-D presenting for dyspnea with exertion. Patient was found to volume overloaded, nephrology was contacted for peritoneal dialysis arrangements. Patient denies fever, endorses ongoing chronic chills. Denies any chest pain, endorses occasional orthopnea. Denies dyspnea at rest. Denies missing peritoneal dialysis anytime recently. Dyspnea Present on Admission: Yes Dyspnea secondary to pulmonary edema Acute hyponatremia Acute decompensated HFrEF, ACC/AHA stage C (EF 26%) Hyperglycemia in the setting of insulin-dependent diabetes mellitus Elevated troponin, type II [place] Acute hypoxic respiratory failure Leukocytosis, reactive Ischemic cardiomyopathy status post AGRICULTURAL ENGINEERING TECHNICIAN-D Multivessel coronary artery disease status post CABG ESRD on peritoneal dialysis Impression/plan: Presenting with acute hypoxic respiratory failure in the setting of pulmonary edema due to volume overload. Nephrology contacted, peritoneal dialysis nurse to change peritoneal dialysis in house. Wean oxygen as tolerated to maintain SpO2 greater than 92%. Elevated troponins with flat curve, given absence of ischemic chest discomfort or any ischemic changes on ECG, this is likely demand supply mismatch myocardial injury pattern secondary to acute hypoxic respiratory failure volume overload status with reduced renal clearance. Recently underwent surgical coronary revascularization this year. Resume home medications, including DAPT. Does not appear to be an infectious process given lack of infiltrates or cough. No indication for antimicrobial therapy at this time. Leukocytosis is likely reactive. Patient seen today. Nice man, good spirits, alert and oriented. Family member in room on a phone call. Patient reports he does feel better than what he did prior to admission. PD was taking place at this time as well. Patient did feel he was breathing better as well. Denies cp sob at rest nvd abd pain fever chills. HPI: This is a 75 year old male who presents with shortness of breath. He has a history of end-stage renal disease currently on peritoneal dialysis. He has a history of coronary artery disease status post CABG. He presented to the hospital with worsening shortness of breath. He has required increasing amounts of supplemental oxygen at home. He states his weight is unchanged. He has not missed any treatments. He has not changed his diet. Urine output is minimal. Blood pressure is borderline low. He does have known heart failure with reduced ejection fraction. He does have severe mitral valve regurgitation. Assessment/Plan 1. End-stage renal disease: Currently on peritoneal dialysis. He uses extraneal during the day at home. He also uses a combination of 1.5 and 2.5% dialysate. He is now describing symptoms of congestive heart failure. Chest x-ray shows pulmonary edema. His weight is unchanged. His dialysis is unchanged. This is concerning for worsening congestive heart failure. For now, will increase his dialysate to all 2.5%. If fails to improve, we will add a 4.25%. 2. He (more content not included)... [facility] CONSULTon 05-28-2025 CONSULT HNO ID: [id number] Author: TRISTAN ALEXANDER DO Service: Cardiovascular Disease Author Type: Physician Type: Consults Filed: 05/28/2025 07:34 Note Text: CARDIOLOGY CONSULT [facility] Cardiology REQUESTING PROVIDER: Rk Gan MD REASON FOR CONSULT: Shortness of Breath CHIEF COMPLAINT: Dyspnea [R06.00] HPI: Mr. 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 PAST MEDICAL HISTORY: PAST MEDICAL HISTORY Diagnosis Date Acute and chronic respiratory failure with hypoxia ([facility]) Bilateral carotid artery stenosis 10/26/2023 Right internal carotid artery: 60-79% stenosis. Left: 20-39% stenosis. Monitored by Vascular Surgeon Dr. Domingo Monsalve. 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 Dolores Welsh COPD (chronic obstructive pulmonary disease) ([facility]) Lead Portfolio Manager Dr. Crystal Bauer Diabetes mellitus type 2 ([facility]) History of 2019 novel coronavirus disease (COVID-19) 09/08/2021 History of cardiac cath 10/30/2023 LAD: Mid LAD is narrowed 60% (DFR 0.79% - hemodynamically significant stenosis). Mid LCx is narrowed 80%. Mid RCA is narrowed 80%. Stent was not placed. CABG indicated. Pt declined CABG due to poor surgical candidate related to many comobidities. Patient elects medical therapy. History of cardiac monitoring 10/02/2023 Patient wore event monitor secondary to palpitations and syncope and collapse. Underlying sinus rhythm was appreciated with excellent heart rate variability. Heart rate ranging 50-120, average heart rate 70. Very rare PVC's are isolated no sustained evidence of atrial fibrillation or ventricular tachycardia. Patient is on Coreg 6.25 mg BID. Symptoms have no relationship to any arrhythmias. History of cardiovascular stress test 10/10/2021 -Impression: Enlarging dilated LV and the setting of global hypokinesis. Calculated EF 39%. This may represent the sequela of chronic hypertension or other cardiomyopathy. No images evidence of stress-induced myocardial ischemia. History of echocardiogram 03/18/2021 Echocardiogram demonstrates a suboptimal study. EF 50 to 55%. Moderate concentric LVH. Class I diastolic dysfunction. Left atrium is mildly dilated. Mild a S. Mild to moderate MR. Mild TR. Borderline to mild PHT. History of echocardiogram 10/04/2022 EF 45-50%. Left ventricle cavity size is normal. Wall thickness is normal. Systolic funciton is mildly reduced. Hypokinesis of the anterolateral myocardium. Hypokinesis of the inferioir myocardium Grade 2 diastolic dysfunction. Mitral valve the annulus is mildly calcified. The leaflets are moderately thickened. Thickening. Severe regurgitation. Left atrium is mildly dilated. History of echocardiogram 12/22/2022 EF 50% demonstrates concentric left ventricular hypertrophy. Slight hypokinesis of distal septal wall. Mild to moderate MR. Mild TR. Aortic valve is sclerotic, thickened, but the valve area is noted to be normal. History of echocardiogram w/ Bubble Study 09/24/2023 EF 30-35%, LV- moderately enlarged. LA-moderately enlarged. RA-moderately enlarged. Moderate to severe MV regurgitation. Moderate TV regurgitation. Moderate pulmonary hypertension. History of echocardiography 10/07/2021 -Echocardiogram demonstrates of the difficult study with minimal information obtainable. LV is dilated with an EF at 45 to 50%. Diastolic function is indeterminate. Aortic valve is poorly visualized but no evidence for aortic stenosis by Doppler analysis. Moderate mitral annular calcification without hemodynamically significant MS. Mild MR. History of smoking History of transesophageal echocardiography (MILA) 10/30/2023 EF 30-35%. Moderately severe MR with PISA of 0.29 cm?. Mild TR. HTN (hypertension) Obstructive sleep apnea on CPAP Peritoneal dialysis status 6-days per week, does not do on Sunday. Severe protein-calorie malnutrition (HCC) 12/28/2024 PAST SURGICAL HISTORY: PAST SURGICAL HISTORY Procedure Laterality Date PAST SURGICAL HISTORY OF Right TMA TONSILLECTOMY HX FAMILY HISTORY: Family History Relation Problem Comments Brother - Tristan (Alive) Arrythmias Diabetes Father () Diabetes Maternal Grandfather () Maternal Grandmother () Mother () Paternal Grandfather () Paternal Grandmother () Sister - Xiomara (Alive) No Known Problems Sister - Esha (Alive) Diabetes Heart disease SOCIAL HISTORY: SOCIAL HISTORY[1] Social History Social History Narrative Not on file MEDICATIONS: PRIOR TO ADMISSION MEDICATIONS: cholecalciferol (VITAMIN D) 1,000 unit tab tabletTake 1,000 Units by mouth once daily.Disp: Rfl: doxycycline monohydrate 100 mg tabletTake 1 tablet by mouth two times a day for 7 days.Disp: 14 tabletRfl: 0 (Patient zafar (more content not included)... [facility] ECHO LIMITEDon 05-28-2025 ECHO LIMITED Echocardiography Report: [facility] Date of service: 05/28/2025 9:20:55 AM Ordering physician: TRISTAN ALEXANDER Exam indication: Shortness of Breath Technologist: Chaitanya Rose BA, RVT, RDCS Interpreting physician: Tristan Alexander DO PATIENT: Name: PETE CONLEY : 1950 Age: 75 years Gender: M Previous cardiovascular interventions: CABG (12/2024) Mitral valve repair (12/2024) Primary rhythm: V. Paced. Height: 177.80 cm BSA: 2.28 m Weight: 105.20 kg BMI: 33.3 kg/m Heart rate 83 bpm Blood pressure 96/47 mmHg Technically difficult exam due to suboptimal positioning and body habitus. Color Doppler was utilized to interrogate the cardiac valves assessed and spectral Doppler was utilized to determine the flow velocities and pressure gradients reported in this exam. MEASUREMENTS: Value Indexed Normal Left atrial volume 115 ml (4ch A-L) 52 ml/m Karin <= 34 LV ID (diastole) 5.6 cm (2D) 2.48 cm/m LV ID (systole) 4.8 cm (2D) 2.09 cm/m IVS, leaflet tips 1.3 cm (2D) Posterior wall thickness 1.3 cm (2D) Left ventricular mass 306 g (2D) 134 g/m LV stroke volume 60 ml (2D 4-ch.) LVOT stroke volume 59 ml 27 ml/m LV end diastolic volume 190 ml (2D 4-ch.) 83.6 ml/m 34<=EDVi<75 LV end systolic volume 130 ml (2D 4-ch.) 57.1 ml/m Ejection Fraction 32 % (2D 4-ch.) EF > 52 FINDINGS: LEFT VENTRICLE The left ventricle is mildly dilated. There is mild concentric left ventricular hypertrophy. Left ventricular systolic function is moderately decreased. Mitral annular lateral E/e': 24.6. Definity contrast used for endocardial border detection. Wall Motion: The anterolateral wall, posterior wall, and basal inferior segment are severely hypokinetic. The entire anterior wall, entire septum, entire apex, and mid and distal inferior wall are mildly hypokinetic. RIGHT VENTRICLE LEFT ATRIUM The left atrial cavity is severely dilated. MITRAL VALVE There is moderately severe (3+) mitral valve regurgitation. Regurgitant orifice area (PISA) is 0.29 cm . The peak valve gradient is 8 mmHg. The mean valve gradient is 3 mmHg. The pressure half time is 49 msec. The peak mitral E/A ratio is 1.42. The average mitral E/e' ratio is 24.6. The mitral flow deceleration time is 168 msec. TRICUSPID VALVE AORTIC VALVE The LVOT mean velocity is 53.0 cm/s. The LVOT diameter is 2.2 cm. The LVOT stroke volume index is 27 ml/m . PULMONIC VALVE CONCLUSIONS: - Limited Echo - Technically difficult exam due to suboptimal positioning and body habitus. - Exam indication: Shortness of Breath - The left ventricle is mildly dilated. There is mild concentric left ventricular hypertrophy. Left ventricular systolic function is moderately decreased. EF = 32 5% (2D 4-ch.) Definity contrast used for endocardial border detection. - The left atrial cavity is severely dilated. - There is moderately severe (3+) mitral valve regurgitation. Regurgitant orifice area (PISA) is 0.29 cm . there is apical akineis, the oerall ef is reduced to 35% moderate MR - Exam was compared with the prior CC echocardiographic exam performed on 04/06/25. * * * Final * * * CC [employer] Image : [id number] Normal [facility] Magnesium SerPl-mCncon 05-28 Magnesium [Mass/Vol] 2.3 mg/dL Normal 1.7-2.3 [facility] Comment on above: Order Comment: Speci men Type: BLOOD SPECIMENOrdering Facility: [facility] Address: [address] [place], [place] [address] Performed By: #### 1 9123-9, 82911-3 ####[facility] [id number] [place] [address] [place] Renal function 2000 panelon 05-28-2025 Albumin [Mass/Vol] 2.8 g/dL Low 3.9-4.9 [facility] Comment on above: Order Comment: Speci men Type: BLOOD SPECIMENOrdering Facility: [facility] Address: [address] [place] [address] Performed By: #### 1 9123-9, 60344-5 ####[facility] [id number] [place] [address] [place] Anion gap [Moles/Vol] 26 mmol/L High 8-15 [facility] Comment on above: Order Comment: Speci men Type: BLOOD SPECIMENOrdering Facility: [facility] Address: [address] [place] [address] Performed By: #### 1 9123-9, 78263-1 ####[facility] [id number] [place] [address] [place] Calcium [Mass/Vol] 7.2 mg/dL Low 8.5-10.2 [facility] Comment on above: Order Comment: Speci men Type: BLOOD SPECIMENOrdering Facility: [facility] Address: [address] [place] [address] Performed By: #### 1 9123-9, 87956-2 ####[facility] LABCLIA [id number] [place] [address] [place] Chloride [Moles/Vol] 88 mmol/L Low 98-107 [facility] Comment on above: Order Comment: Speci men Type: BLOOD SPECIMENOrdering Facility: [facility] Address: [address] [place] [address] Performed By: #### 1 9123-9, 39839-3 ####[facility] LABIA [id number] [place] [address] [place] CO2 [Moles/Vol] 19 mmol/L Low 22-30 [facility] Comment on above: Order Comment: Speci men Type: BLOOD SPECIMENOrdering Facility: [facility] Address: [address] [place] [address] Performed By: #### 1 9123-9, 39461-2 ####[facility] [id number] [place] [address] [place] Creatinine [Mass/Vol] 14.13 mg/dL High 0.73-1.22 [facility] Comment on above: Order Comment: Speci men Type: BLOOD SPECIMENOrdering Facility: [facility] Address: [address] [place] [address] Performed By: #### 1 9123-9, 30670-0 ####[facility] LABIA [id number] [place] [address] [place] eGFRcr SerPlBld CKD-EPI 2020 3 mL/min/1.73m??? Low >=60 [facility] Comment on above: Order Comment: Speci men Type: BLOOD SPECIMENOrdering Facility: [facility] Address: [address] [place] [address] Result Comment: Maggy mated Glomerular Filtration Rate (eGFR) is calculated using the 2020 CKD-EPI creatinine equation. This equation utilizes serum creatinine, sex, and age as parameters. The creatinine assay has traceable calibration to isotope dilution-mass spectrometry. Refer to KDIGO guidelines for clinical interpretation. In patients with unstable renal function, e.g. those with acute kidney injury, the eGFR may not accurately reflect actual GFR. Performed By: #### 1 9123-9, 02891-7 ####[facility] LABIA [id number] [place] [address] [place] Glucose [Mass/Vol] 253 mg/dL High 74-99 [facility] Comment on above: Order Comment: Vandana aguero Type: BLOOD SPECIMENOrdering Facility: [facility] Address: [address] [place] [address] Result Comment: The [place] Diabetes [employer] (ADA) provides guidance for cutoff values for fasting glucose and random glucose. The ADA defines fasting as no caloric intake for at least 8 hours. Fasting plasma glucose results between 100 to 125 mg/dL indicate increased risk for diabetes (prediabetes). Fasting plasma glucose results greater than or equal to 126 mg/dL meet the criteria for diagnosis of diabetes. In the absence of unequivocal hyperglycemia, results should be confirmed by repeat testing. In a patient with classic symptoms of hyperglycemia or hyperglycemic crisis, random plasma glucose results greater than or equal to 200 mg/dL meet the criteria for diagnosis of diabetes. Reference: Standards of Medical Care in Diabetes 2016, [place] [employer]. Diabetes Care. 2016.39(Suppl 1). Performed By: #### 1 9123-9, 96133-3 ####[facility] LABIA [id number] [place] [address] [place] Phosphate [Mass/Vol] 8.8 mg/dL High 2.7-4.8 [facility] Comment on above: Order Comment: Vandana aguero Type: BLOOD SPECIMENOrdering Facility: [facility] Address: [address] [place] [address] Performed By: #### 1 9123-9, 16774-2 ####[facility] LABIA [id number] [place] [address] [place] Potassium [Moles/Vol] 3.7 mmol/L Normal 3.7-5.1 [facility] Comment on above: Order Comment: Vandana aguero Type: BLOOD SPECIMENOrdering Facility: [facility] Address: [address] [place] [address] Performed By: #### 1 9123-9, 15707-9 ####[facility] LABCLIA [id number] [place] [address] [place] Sodium [Moles/Vol] 133 mmol/L Low 136-144 [facility] Comment on above: Order Comment: Speci men Type: BLOOD SPECIMENOrdering Facility: [facility] Address: [address] [place] [address] Performed By: #### 1 9123-9, 53631-0 ####[facility] LABCLIA [id number] [place] [address] [place] Urea nitrogen [Mass/Vol] 88 mg/dL High 9-24 [facility] Comment on above: Order Comment: Speci men Type: BLOOD SPECIMENOrdering Facility: [facility] Address: [address] [place] [address] Performed By: #### 1 9123-9, 71333-2 ####[facility] LABCLIA [id number] [place] [address] [place] Basic metabolic 2000 panelon 05-27-2025 Anion gap [Moles/Vol] 25 mmol/L High 8-15 [facility] Comment on above: Order Comment: Speci men Type: BLOOD SPECIMEN [facility] Address: [facility] [place] [address] Performed By: #### 1 9123-9, 2777-1, 28487-7 #### [facility] CLIA [id number] [address] [place] [address] [place] Calcium [Mass/Vol] 7.4 mg/dL Low 8.5-10.2 [facility] Comment on above: Order Comment: Speci men Type: BLOOD SPECIMEN [facility] Address: [facility] [place] [address] Performed By: #### 1 9123-9, 2777-1, 35240-7 #### [facility] CLIA [id number] [address] [place] [address] [place] Chloride [Moles/Vol] 82 mmol/L Low 98-107 [facility] Comment on above: Order Comment: Speci men Type: BLOOD SPECIMEN [facility] Address: [address] [place] [address] Performed By: #### 1 9123-9, 2777-1, 78286-0 #### [facility] CLIA [id number] [address] [place] [address] [place] CO2 [Moles/Vol] 18 mmol/L Low 22-30 [facility] Comment on above: Order Comment: Speci men Type: BLOOD SPECIMEN [facility] Address: [address] [place] [address] Performed By: #### 1 9123-9, 2777-1, 71176-7 #### [facility] CLIA [id number] [address] [place] [address] [place] Creatinine [Mass/Vol] 13.48 mg/dL High 0.73-1.22 [facility] Comment on above: Order Comment: Speci men Type: BLOOD SPECIMEN [facility] Address: [address] [place] [address] Performed By: #### 1 9123-9, 2777-, 54864-6 #### [facility] CLIA [id number] [address] [place] [address] [place] eGFRcr SerPlBld CKD-EPI 2020 3 mL/min/1.73m??? Low >=60 [facility] Comment on above: Order Comment: Speci men Type: BLOOD SPECIMEN [facility] Address: [address] [place] [address] Result Comment: Maggy mated Glomerular Filtration Rate (eGFR) is calculated using the 2020 CKD-EPI creatinine equation. This equation utilizes serum creatinine, sex, and age as parameters. The creatinine assay has traceable calibration to isotope dilution-mass spectrometry. Refer to KDIGO guidelines for clinical interpretation. In patients with unstable renal function, e.g. those with acute kidney injury, the eGFR may not accurately reflect actual GFR. Performed By: #### 1 9123-9, 2777, 91072-8 #### [facility] CLIA [id number] [address] [place], [place] [address] [place] Glucose [Mass/Vol] 252 mg/dL High 74-99 [facility] Comment on above: Order Comment: Vandana aguero Type: BLOOD SPECIMEN [facility] Address: [address] [place] [address] Result Comment: The [place] Diabetes Association (ADA) provides guidance for cutoff values for fasting glucose and random glucose. The ADA defines fasting as no caloric intake for at least 8 hours. Fasting plasma glucose results between 100 to 125 mg/dL indicate increased risk for diabetes (prediabetes). Fasting plasma glucose results greater than or equal to 126 mg/dL meet the criteria for diagnosis of diabetes. In the absence of unequivocal hyperglycemia, results should be confirmed by repeat testing. In a patient with classic symptoms of hyperglycemia or hyperglycemic crisis, random plasma glucose results greater than or equal to 200 mg/dL meet the criteria for diagnosis of diabetes. Reference: Standards of Medical Care in Diabetes 2016, [place] [employer]. Diabetes Care. 2016.39(Suppl 1). Performed By: #### 1 9123-9, 2777, 59690-9 #### [facility] CLIA [id number] [address] [place] [address] [place] Potassium [Moles/Vol] 4.0 mmol/L Normal 3.7-5.1 [facility] Comment on above: Order Comment: Vandana aguero Type: BLOOD SPECIMEN [facility] Address: [address] [place] [address] Performed By: #### 1 9123-9, 2777, 66645-1 #### [facility] CLIA [id number] [address] [place] [address] [place] Sodium [Moles/Vol] 125 mmol/L Low 136-144 [facility] Comment on above: Order Comment: Vandana aguero Type: BLOOD SPECIMEN [facility] Address: [address] [place], [place] [address] Performed By: #### 1 9123-9, 2777-1, 18694-1 #### [facility] CLIA [id number] [address] [place] [address] [place] Urea nitrogen [Mass/Vol] 92 mg/dL High 05-13 [facility] Comment on above: Order Comment: Speci men Type: BLOOD SPECIMEN [facility] Address: [address] [place] [address] Performed By: #### 1 9123-9, 2777-1, 44268-7 #### [facility] CLIA [id number] [address] [place] [address] [place] CBC panel Auto (Bld)on 05-27 Erythrocyte distribution width (RBC) [Ratio] 15.2 % High 11.5-15.0 [facility] Comment on above: Order Comment: Speci men Type: BLOOD SPECIMEN [facility] Address: [address] [place] [address] Performed By: #### 5 8410-2 #### [facility] CLIA [id number] [address] [place] [address] [place] Hematocrit (Bld) [Volume fraction] 31.4 % Low 39.0-51.0 [facility] Comment on above: Order Comment: Speci men Type: BLOOD SPECIMEN [facility] Address: [address] [place] [address] Performed By: #### 5 8410-2 #### [facility] CLIA [id number] [address] [place] [address] [place] Hemoglobin (Bld) [Mass/Vol] 10.5 g/dL Low 13.0-17.0 [facility] Comment on above: Order Comment: Speci men Type: BLOOD SPECIMEN [facility] Address: [address] [place] [address] Performed By: #### 5 8410-2 #### [facility] CLIA [id number] [address] [place] [address] [place] MCH (RBC) [Entitic mass] 30.3 pg Normal 26.0-34.0 [facility] Comment on above: Order Comment: Speci men Type: BLOOD SPECIMEN [facility] Address: [address] [place] [address] Performed By: #### 5 8410-2 #### [facility] [facility] CLIA [id number] [address] [place] [address] [place] MCHC (RBC) [Mass/Vol] 33.4 g/dL Normal 30.5-36.0 [facility] Comment on above: Order Comment: Speci men Type: BLOOD SPECIMEN Ordering Facility: [facility] Address: [address] [place] [address] Performed By: #### 5 8410-2 #### [facility] CLIA [id number] [address] [place] [address] [place] MCV (RBC) [Entitic vol] 90.8 fL Normal 80.0-100.0 [facility] Comment on above: Order Comment: Speci men Type: BLOOD SPECIMEN Ordering Facility: [facility] Address: [address] [place] [address] Performed By: #### 5 8410-2 #### [facility] CLIA [id number] [address] [place] [address] [place] Nucleated RBC (Bld) [#/Vol] 10*3/uL Normal <0.01 [facility] Comment on above: Order Comment: Speci men Type: BLOOD SPECIMEN Ordering Facility: [facility] Address: [address] [place] [address] Performed By: #### 5 8410-2 #### [facility] CLIA [id number] [address] [place] [address] [place] Platelet mean volume (Bld) [Entitic vol] 9.5 fL Normal 9.0-12.7 [facility] Comment on above: Order Comment: Speci men Type: BLOOD SPECIMEN Ordering Facility: [facility] Address: [address] [place] [address] Performed By: #### 5 8410-2 #### [facility] CLIA [id number] [address] [place] [address] [facility] [place] Platelets (Bld) [#/Vol] 171 10*3/uL Normal 150-400 [facility] Comment on above: Order Comment: Speci men Type: BLOOD SPECIMEN Ordering Facility: [facility] Address: [address] [place] [address] Performed By: #### 5 8410-2 #### [facility] CLIA [id number] [address] [place] [address] [place] RBC (Bld) [#/Vol] 3.46 10*6/uL Low 4.20-6.00 [facility] Comment on above: Order Comment: Speci men Type: BLOOD SPECIMEN Ordering Facility: [facility] Address: [address] [place] [address] Performed By: #### 5 8410-2 #### [facility] CLIA [id number] [address] [place] [address] [facility] [place] WBC (Bld) [#/Vol] 16.30 10*3/uL High 3.70-11.00 [facility] Comment on above: Order Comment: Speci men Type: BLOOD SPECIMEN Ordering Facility: [facility] Address: [address] [place] [address] Performed By: #### 5 8410-2 #### [facility] CLIA [id number] [address] [place] [address] CONSULTon 05-27-2025 CONSULT HNO ID: [id number] Author: VICK TAYLOR MD Service: ? Author Type: Physician Type: Consults Filed: 05/27/2025 14:45 Note Text: HISTORY AND PHYSICAL EXAMINATION SERVICE DATE: 05/27/2025 SERVICE TIME: 1400 PRIMARY CARE PHYSICIAN: Moises Prater MD Subjective CHIEF COMPLAINT: Shortness of breath HPI: This is a 75 year old male who presents with shortness of breath. He has a history of end-stage renal disease currently on peritoneal dialysis. He has a history of coronary artery disease status post CABG. He presented to the hospital with worsening shortness of breath. He has required increasing amounts of supplemental oxygen at home. He states his weight is unchanged. He has not missed any treatments. He has not changed his diet. Urine output is minimal. Blood pressure is borderline low. He does have known heart failure with reduced ejection fraction. He does have severe mitral valve regurgitation. FUNCTIONAL STATUS: Independent PAST MEDICAL HISTORY Diagnosis Date Acute and chronic respiratory failure with hypoxia ([facility]) Bilateral carotid artery stenosis 10/26/2023 Right internal carotid artery: 60-79% stenosis. Left: 20-39% stenosis. Monitored by Vascular Surgeon Dr. Domingo Monsalve. 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 Dolores Welsh COPD (chronic obstructive pulmonary disease) ([facility]) Lead Portfolio Manager Dr. Crystal Bauer Diabetes mellitus type 2 ([facility]) History of 2019 novel coronavirus disease (COVID-19) 09/08/2021 History of cardiac cath 10/30/2023 LAD: Mid LAD is narrowed 60% (DFR 0.79% - hemodynamically significant stenosis). Mid LCx is narrowed 80%. Mid RCA is narrowed 80%. Stent was not placed. CABG indicated. Pt declined CABG due to poor surgical candidate related to many comobidities. Patient elects medical therapy. History of cardiac monitoring 10/02/2023 Patient wore event monitor secondary to palpitations and syncope and collapse. Underlying sinus rhythm was appreciated with excellent heart rate variability. Heart rate ranging 50-120, average heart rate 70. Very rare PVC's are isolated no sustained evidence of atrial fibrillation or ventricular tachycardia. Patient is on Coreg 6.25 mg BID. Symptoms have no relationship to any arrhythmias. History of cardiovascular stress test 10/10/2021 -Impression: Enlarging dilated LV and the setting of global hypokinesis. Calculated EF 39%. This may represent the sequela of chronic hypertension or other cardiomyopathy. No images evidence of stress-induced myocardial ischemia. History of echocardiogram 03/18/2021 Echocardiogram demonstrates a suboptimal study. EF 50 to 55%. Moderate concentric LVH. Class I diastolic dysfunction. Left atrium is mildly dilated. Mild a S. Mild to moderate MR. Mild TR. Borderline to mild PHT. History of echocardiogram 10/04/2022 EF 45-50%. Left ventricle cavity size is normal. Wall thickness is normal. Systolic funciton is mildly reduced. Hypokinesis of the anterolateral myocardium. Hypokinesis of the inferioir myocardium Grade 2 diastolic dysfunction. Mitral valve the annulus is mildly calcified. The leaflets are moderately thickened. Thickening. Severe regurgitation. Left atrium is mildly dilated. History of echocardiogram 12/22/2022 EF 50% demonstrates concentric left ventricular hypertrophy. Slight hypokinesis of distal septal wall. Mild to moderate MR. Mild TR. Aortic valve is sclerotic, thickened, but the valve area is noted to be normal. History of echocardiogram w/ Bubble Study 09/24/2023 EF 30-35%, LV- moderately enlarged. LA-moderately enlarged. RA-moderately enlarged. Moderate to severe MV regurgitation. Moderate TV regurgitation. Moderate pulmonary hypertension. History of echocardiography 10/07/2021 -Echocardiogram demonstrates of the difficult study with minimal information obtainable. LV is dilated with an EF at 45 to 50%. Diastolic function is indeterminate. Aortic valve is poorly visualized but no evidence for aortic stenosis by Doppler analysis. Moderate mitral annular calcification without hemodynamically significant MS. Mild MR. History of smoking History of transesophageal echocardiography (MILA) 10/30/2023 EF 30-35%. Moderately severe MR with PISA of 0.29 cm?. Mild TR. HTN (hypertension) Obstructive sleep apnea on CPAP Peritoneal dialysis status 6-days per week, does not do on Sunday. Severe protein-calorie malnutrition (HCC) 12/28/2024 PAST SURGICAL HISTORY Procedure Laterality Date PAST SURGICAL HISTORY OF Right TMA TONSILLECTOMY HX FAMILY HISTORY Problem Relation Age of Onset Diabetes Father No Known Problems Sister Diabetes Sister Heart disease Sister Arrythmias Brother Diabetes Brother SOCIAL HISTORY[1] Prescriptions Prior to Admission[2] ALLERGIES Allergen Reactions Amlodipine Swelling Aspirin Other: See Comments (more content not included)... [facility] CONSULT PROGon 05-27-2025 CONSULT PROG HNO ID: [id number] Author: POWER BARRAGAN [facility] Service: Pharmacy Author Type: Ceramic Chemist Type: Consult Progress Note Filed: 05/28/2025 08:12 Note Text: Attestation signed by Power Barragan [facility] at 05/28/2025 8:12 AM This information has been reviewed by a pharmacist and is noted to be an accurate representation of the patient's medications upon admission based on available information. Of note: Pt was prescribed a 7 day course of doxycycline on 05/21/25 for Shortness of Breath/bronchitis/[employer] PD. Pt is on peritoneal dialysis. PHARMACY MEDICATION REVIEW Patient Name: Pete Conley : 1950 The following medications were updated within the SURVEILLANCE OBSERVER medication list: Medications ADDED to SURVEILLANCE OBSERVER medication list Vitamin D3 1000 units Medications CHANGED on SURVEILLANCE OBSERVER medication list Insulin Glargine is currently 10 units at lunch and dinner Humalog Kwikpen is currently 5 units at lunch and dinner Medications REMOVED from SURVEILLANCE OBSERVER medication list Multivitamin-Ferrous Fumarate-Folic Acid- pt no longer takes his choice Maalox- pt no longer takes his choice Dextrose 1% Gel- patient does not have at home Diclofenac Top Gel 1%- patient does not need to use anymore area healed Insulin Lispro- 2 entries for same drug but patient uses Insulin Glargine and Humalog Kwikpen currently Humulin R- patient uses Insulin Glargine and Huamlog Kwikpen currently Milk Of Magnesium- pt no longer needs to use Midodrine 2.5mg- dr stout Miralax Powder- pt no longer needs to use Senna S= pt no longer needs to use Desitin 13% Cream- area on pt has cleared up no longer needed Additional comments: N/A The below information represents the best possible medication history: Yes Medication history completed by: Ceramic Chemist: Katelynn Nieto Source of history: Patient: Reliability of source: Appears reliable, clearly identified: Medication name, Medication dose, and Medication frequency Medication nonadherence identified: No barriers noted Reconciliation completed: Yes Completed by: Rk Gan All 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 Unable to assess Preferred outpatient pharmacy: [place] [phone] Allergies: Amlodipine Swelling Aspirin Other: See Comments Comment:tacchycardia Clams Unknown Kiwi Rash Metformin Intolerance Victoza [Liraglutid* Other: See Comments Prior to Admission Medications Prescriptions Last Dose Informant Patient Reported? Taking? B Complex-Vitamin C-Folic Acid (LENA-VIT) 0.8 mg tab 05/26/2025 No Yes Sig: Take 1 tablet by mouth once daily. MULTIVITAMIN-FERROUS FUMARATE-FOLIC ACID 18 MG-400 MCG TABLET No Yes Sig: Take 1 tablet by mouth daily with breakfast. acetaminophen (TYLENOL) 325 mg tablet 05/26/2025 No Yes Sig: Take 2 tablets by mouth every 4 hours as needed for pain. albuterol (PROVENTIL) 2.5 mg /3 mL (0.083 %) nebulizer solution No Yes Sig: Use 3 mL via nebulizer every 4 hours as needed for wheezing/shortness of breath. aluminum-magnesium hydroxide-simethicone 200-200-20 mg/5 mL suspension Not Taking No No Sig: Take 30 mL by mouth every 4 hours as needed (Second Line Therapy). Patient not taking: Reported on 05/26/2025 aspirin 81 mg chewable tablet 05/25/2025 at 8:00 PM No Yes Sig: Take 1 tablet by mouth once daily. atorvastatin (LIPITOR) 80 mg tablet 05/25/2025 at 8:00 PM No Yes Sig: Take 1 tablet by mouth daily at bedtime. cholecalciferol (VITAMIN D) 1,000 unit tab tablet Yes Yes Sig: Take 1,000 Units by mouth once daily. clopidogrel (PLAVIX) 75 mg tablet 05/26/2025 at 8:00 AM No Yes Sig: Take 1 tablet by mouth every morning. dextrose (TRUEPLUS) 15 gram/32 mL oral gel Not Taking No No Sig: Take 32 mL by mouth as needed. Patient not taking: Reported on 05/26/2025 diclofenac (VOLTAREN) 1 % topical gel Not Taking No No Sig: Apply 2 g to affected area four times daily. Patient not taking: Reported on 05/26/2025 doxycycline monohydrate 100 mg tablet 05/26/2025 at 8:00 AM No Yes Sig: Take 1 tablet by mouth two times a day for 7 days. Patient taking differently: Take 100 mg by mouth two times a day. Started 05/22/2025 insulin glargine 100 unit/mL (3 mL) 05/26/2025 at 8:00 AM No Yes Sig: Inject 34 Units subcutaneously once daily. daily at 12 pm Patient taking differently: Inject 10 Units subcutaneously as directed. Daily in am and evening insulin lispro (HUMALOG KWIKPEN INSULIN) 100 unit/mL 05/26/2025 at 12:00 PM No Yes Sig: Inject 4 units with breakfast, 3 units with lunch, 2 units with dinner plus sliding scale If Blood Glucose (mg/dL) is <110 Give 0 units 111-150 Give 1 units 151-200 Give 3 unit 201-250 Give 6 units 251-300 Give 9 un (more content not included)... 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 Patient was found to volume overloaded, nephrology was contacted for peritoneal dialysis arrangements. Patient denies fever, endorses ongoing chronic chills. Denies any chest pain, endorses occasional orthopnea. Denies dyspnea at rest. Denies missing peritoneal dialysis anytime recently. Shortness of Breath Weakness Associated symptoms include chills. Fever Dizziness Associated symptoms include shortness of breath. The following problems are present on admission at this time: Heart failure Coagulopathy Anemia Cerebrovascular disease Chronic pulmonary disease Diabetes mellitus Hypertension Obesity Valvular disease Continue current outpatient treatment plan and current medications for these conditions, except where otherwise noted. PAST MEDICAL HISTORY Diagnosis Date Acute and chronic respiratory failure with hypoxia (HCC) Bilateral carotid artery stenosis 10/26/2023 Right internal carotid artery: 60-79% stenosis. Left: 20-39% stenosis. Monitored by Vascular Surgeon Dr. Domingo Monsalve. 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 Dolores Welsh COPD (chronic obstructive pulmonary disease) ([facility]) Lead Portfolio Manager Dr. Crystal Bauer Diabetes mellitus type 2 ([facility]) History of 2019 novel coronavirus disease (COVID-19) 09/08/2021 History of cardiac cath 10/30/2023 LAD: Mid LAD is narrowed 60% (DFR 0.79% - hemodynamically significant stenosis). Mid LCx is narrowed 80%. Mid RCA is narrowed 80%. Stent was not placed. CABG indicated. Pt declined CABG due to poor surgical candidate related to many comobidities. Patient elects medical therapy. History of cardiac monitoring 10/02/2023 Patient wore event monitor secondary to palpitations and syncope and collapse. Underlying sinus rhythm was appreciated with excellent heart rate variability. Heart rate ranging 50-120, average heart rate 70. Very rare PVC's are isolated no sustained evidence of atrial fibrillation or ventricular tachycardia. Patient is on Coreg 6.25 mg BID. Symptoms have no relationship to any arrhythmias. History of cardiovascular stress test 10/10/2021 -Impression: Enlarging dilated LV and the setting of global hypokinesis. Calculated EF 39%. This may represent the sequela of chronic hypertension or other cardiomyopathy. No images evidence of stress-induced myocardial ischemia. History of echocardiogram 03/18/2021 Echocardiogram demonstrates a suboptimal study. EF 50 to 55%. Moderate concentric LVH. Class I diastolic dysfunction. Left atrium is mildly dilated. Mild a S. Mild to moderate MR. Mild TR. Borderline to mild PHT. History of echocardiogram 10/04/2022 EF 45-50%. Left ventricle cavity size is normal. Wall thickness is normal. Systolic funciton is mildly reduced. Hypokinesis of the anterolateral myocardium. Hypokinesis of the inferioir myocardium Grade 2 diastolic dysfunction. Mitral valve the annulus is mildly calcified. The leaflets are moderately thickened. Thickening. Severe regurgitation. Left atrium is mildly dilated. History of echocardiogram 12/22/2022 EF 50% demonstrates concentric left ventricular hypertrophy. Slight hypokinesis of distal septal wall. Mild to moderate MR. Mild TR. Aortic valve is sclerotic, thickened, but the valve area is noted to be normal. History of echocardiogram w/ Bubble Study 09/24/2023 EF 30-35%, LV- moderately enlarged. LA-moderately enlarged. RA-moderately enlarged. Moderate to severe MV regurgitation. Moderate TV regurgitation. Moderate pulmonary hypertension. History of echocardiography 10/07/2021 -Echocardiogram demonstrates of the difficult study with minimal information obtainable. LV is dilated with an EF at 45 to 50%. Diastolic function is indeterminate. Aortic valve is poorly visualized but no evidence for aortic stenosis by Doppler analysis. Moderate mitral annular calcification without hemodynamically significant MS. Mild MR. History of smoking History of transesophageal echocardiography (MILA) 10/30/2023 EF 30-35%. Moderately severe MR with PISA of 0.29 cm?. Mild TR. HTN (hypertension) Obstructive sleep apnea on CPAP Peritoneal dialysis status 6-days per week, does not do on Sunday. Severe protein-calorie malnutrition (HCC) 12/28/2024 PAST SURGICAL HISTORY Procedure Laterality Date PAST SURGICAL HISTORY OF Right TMA TONSILLECTOMY HX FAMILY HISTORY Probl (more content not included)... Normal [facility] Magnesium SerPl-mCncon 05-27 Magnesium [Mass/Vol] 2.9 mg/dL High 1.7-2.3 [facility] Comment on above: Order Comment: Speci men Type: BLOOD SPECIMEN Ordering Facility: [facility] Address: [address] [place] [address] Performed By: #### 1 9123-9, 2777-1, 11711-3 #### [facility] CLIA [id number] [address] [place] [address] [place] Phosphate SerPl-mCncon 05-27 Phosphate [Mass/Vol] 8.6 mg/dL High 2.7-4.8 [facility] Comment on above: Order Comment: Speci men Type: BLOOD SPECIMEN Ordering Facility: [facility] Address: [address] [place] [address] Performed By: #### 1 9123-9, 2777-1, 02518-2 #### [facility] CLIA [id number] [address] [place] [address] [place] XR CHEST 1V FRONTALon 2024 XR CHEST 1V FRONTAL * * *Final Report* * * DATE OF EXAM: May 27 2025 5:18AM UDX [id number] - XR CHEST 1V FRONTAL / PROCEDURE REASON: Pulmonary Edema * * * * Physician Interpretation * * * * EXAMINATION: CHEST RADIOGRAPH (SINGLE VIEW AP OR PA) CLINICAL HISTORY: Pulmonary Edema MQ: XC1_5 Comparison: Chest x-ray 05/26/2025. CT chest 05/21/2025. RESULT: Lines, tubes, and devices: A left subclavian aproach pacemaker/AICD is visualized in similar position. Lungs and pleura: Similar mild pulmonary interstitial prominence No new consolidation, pleural effusion, or pneumothorax. Cardiomediastinal silhouette: Stable size and configuration, status post median sternotomy. Bones and soft tissues: No acute osseous abnormality is identified. The imaged upper abdomen is within normal limits. IMPRESSION: Similar mild pulmonary interstitial prominence which can be seen with pulmonary edema. Director Game: RUTHIE Transcribe Date/Time: May 27 2025 10:32A Dictated by : BAILEY KAT MD This examination was interpreted and the report reviewed and electronically signed by: BAILEY KAT MD on May 27 2025 10:34AM EST [id number] Normal [facility] CBC W Auto Differential pane l (Bld)on 05-26-2025 Basophils (Bld) [#/Vol] 0.06 10*3/uL Normal <0.11 [facility] Comment on above: Order Comment: Speci men Type: BLOOD SPECIMEN Ordering Facility: [facility] Address: [address] [place] [address] Performed By: #### 5 7021-8 #### [facility] CLIA [id number] [address] [place] [address] [place] #### 82695-5 #### [facility] CLIA [id number] [address] [place] [address] [place] Basophils/100 WBC (Bld) 0.3 % Normal [facility] Comment on above: Order Comment: Speci men Type: BLOOD SPECIMEN Ordering Facility: [facility] Address: [address] [place] [address] Performed By: #### 5 7021-8 #### [facility] CLIA [id number] [address] [place] [address] [place] #### 16412-7 #### [facility] CLIA [id number] [address] [place] [address] [place] Differential cell count method Nom (Bld) Auto Normal [facility] Comment on above: Order Comment: Speci men Type: BLOOD SPECIMEN Ordering Facility: [facility] Address: [address] [place] [address] Performed By: #### 5 7021-8 #### [facility] CLIA [id number] [address] [place] [address] [place] #### 49961-4 #### [facility] CLIA [id number] [address] [place] [address] [place] Eosinophils (Bld) [#/Vol] 0.09 10*3/uL Normal <0.46 [facility] Comment on above: Order Comment: Speci men Type: BLOOD SPECIMEN Ordering Facility: [facility] Address: [address] [place] [address] Performed By: #### 5 7021-8 #### [facility] CLIA [id number] [address] [place] [address] [place] #### 65432-5 #### [facility] CLIA [id number] [address] [place] [address] [place] Eosinophils/100 WBC (Bld) 0.5 % Normal [facility] Comment on above: Order Comment: Speci men Type: BLOOD SPECIMEN Ordering Facility: [facility] Address: [address] [place] [address] Performed By: #### 5 7021-8 #### [facility] CLIA [id number] [address] [place] [address] [place] #### 69985-6 #### [facility] CLIA [id number] [address] [place] [address] [place] Erythrocyte distribution width (RBC) [Ratio] 15.3 % High 11.5-15.0 [facility] Comment on above: Order Comment: Speci men Type: BLOOD SPECIMEN Ordering Facility: [facility] Address: [address] [place] [address] Performed By: #### 5 7021-8 #### [facility] CLIA [id number] [address] [place] [address] [place] #### 80108-4 #### [facility] CLIA [id number] [address] [place] [address] [place] Hematocrit (Bld) [Volume fraction] 31.6 % Low 39.0-51.0 [facility] Comment on above: Order Comment: Speci men Type: BLOOD SPECIMEN Ordering Facility: [facility] Address: [address] [place] [address] Performed By: #### 5 7021-8 #### [facility] CLIA [id number] [address] [place] [address] [place] #### 59379-0 #### [facility] CLIA [id number] [address] [place] [address] [place] Hemoglobin (Bld) [Mass/Vol] 10.9 g/dL Low 13.0-17.0 [facility] Comment on above: Order Comment: Speci men Type: BLOOD SPECIMEN Ordering Facility: [facility] Address: [address] [place] [address] Performed By: #### 5 7021-8 #### [facility] CLIA [id number] [address] [place] [address] [place] #### 68351-7 #### [facility] CLIA [id number] [address] [place] [address] [place] Immature granulocytes (Bld) [#/Vol] 0.20 10*3/uL High <0.10 [facility] Comment on above: Order Comment: Speci men Type: BLOOD SPECIMEN Ordering Facility: [facility] Address: [address] [place] [address] Performed By: #### 5 7021-8 #### [facility] CLIA [id number] 09 [place] [address] [place] #### 81594-3 #### [facility] CLIA [id number] [address] [place] [address] [place] Immature granulocytes/100 WBC (Bld) 1.2 % Normal [facility] Comment on above: Order Comment: Speci men Type: BLOOD SPECIMEN Ordering Facility: [facility] Address: [address] [place] [address] Performed By: #### 5 7021-8 #### [facility] CLIA [id number] [address] [place] [address] [place] #### 13957-4 #### [facility] CLIA [id number] [address] [place] [address] [place] Lymphocytes (Bld) [#/Vol] 0.63 10*3/uL Low 1.00-4.00 [facility] Comment on above: Order Comment: Speci men Type: BLOOD SPECIMEN Ordering Facility: [facility] Address: [address] [place] [address] Performed By: #### 5 7021-8 #### [facility] CLIA [id number] [address] [place] [address] [place] #### 96440-6 #### [facility] CLIA [id number] [address] [place] [address] [place] Lymphocytes/100 WBC (Bld) 3.6 % Normal [facility] Comment on above: Order Comment: Speci men Type: BLOOD SPECIMEN Ordering Facility: [facility] Address: [address] [place] [address] Performed By: #### 5 7021-8 #### [facility] CLIA [id number] [address] [place] [address] [place] #### 82554-5 #### [facility] CLIA [id number] [address] [place] [address] [place] MCH (RBC) [Entitic mass] 31.1 pg Normal 26.0-34.0 [facility] Comment on above: Order Comment: Speci men Type: BLOOD SPECIMEN Ordering Facility: [facility] Address: [address] [place] [address] Performed By: #### 5 7021-8 #### [facility] CLIA [id number] [address] [place] [address] [place] #### 24545-9 #### [facility] CLIA [id number] [address] [place] [address] [place] MCHC (RBC) [Mass/Vol] 34.5 g/dL Normal 30.5-36.0 [facility] Comment on above: Order Comment: Speci men Type: BLOOD SPECIMEN Ordering Facility: [facility] Address: [address] [place] [address] Performed By: #### 5 7021-8 #### [facility] CLIA [id number] [address] [place] [address] [place] #### 95195-6 #### [facility] CLIA [id number] [address] [place] [address] [place] MCV (RBC) [Entitic vol] 90.0 fL Normal 80.0-100.0 [facility] Comment on above: Order Comment: Speci men Type: BLOOD SPECIMEN Ordering Facility: [facility] Address: [address] [place] [address] Performed By: #### 5 7021-8 #### [facility] CLIA [id number] [address] [place] [address] [place] #### 98440-8 #### [facility] CLIA [id number] [address] [place] [address] [place] Monocytes (Bld) [#/Vol] 1.44 10*3/uL High <0.87 [facility] Comment on above: Order Comment: Speci men Type: BLOOD SPECIMEN Ordering Facility: [facility] Address: [address] [place] [address] Performed By: #### 5 7021-8 #### [facility] CLIA [id number] [address] [place] [address] [place] #### 72817-3 #### [facility] CLIA [id number] [address] [place] [address] [place] Monocytes/100 WBC (Bld) 8.3 % Normal [facility] Comment on above: Order Comment: Speci men Type: BLOOD SPECIMEN Ordering Facility: [facility] Address: [address] [place] [address] Performed By: #### 5 7021-8 #### [facility] CLIA [id number] [address] [place] [address] [place] #### 72577-6 #### [facility] CLIA [id number] [address] [place] [address] [place] Neutrophils (Bld) [#/Vol] 14.92 10*3/uL High 1.45-7.50 [facility] Comment on above: Order Comment: Speci men Type: BLOOD SPECIMEN Ordering Facility: [facility] Address: [address] [place] [address] Performed By: #### 5 7021-8 #### [facility] CLIA [id number] [address] [place] [address] [place] #### 90995-5 #### [facility] CLIA [id number] [address] [place] [address] [place] Neutrophils/100 WBC (Bld) 86.1 % Normal [facility] Comment on above: Order Comment: Speci men Type: BLOOD SPECIMEN Ordering Facility: [facility] Address: [address] [place] [address] Performed By: #### 5 7021-8 #### [facility] CLIA [id number] [address] [place] [address] [place] #### 47373-1 #### [facility] CLIA [id number] [address] [place] [address] [place] Nucleated RBC (Bld) [#/Vol] 10*3/uL Normal <0.01 [facility] Comment on above: Order Comment: Speci men Type: BLOOD SPECIMEN Ordering Facility: [facility] Address: [address] [place] [address] Performed By: #### 5 7021-8 #### [facility] CLIA [id number] [address] [place] [address] [place] #### 72885-4 #### [facility] CLIA [id number] [address] [place] [address] [place] Nucleated RBC/100 WBC (Bld) [Ratio] 0.0 /100 WBC Normal [facility] Comment on above: Order Comment: Speci men Type: BLOOD SPECIMEN Ordering Facility: [facility] Address: [address] [place] [address] Performed By: #### 5 7021-8 #### [facility] CLIA [id number] [address] [place] [address] [place] #### 04103-8 #### [facility] CLIA [id number] [address] [place] [address] [place] Platelet mean volume (Bld) [Entitic vol] 9.7 fL Normal 9.0-12.7 [facility] Comment on above: Order Comment: Speci men Type: BLOOD SPECIMEN Ordering Facility: [facility] Address: [address] [place] [address] Performed By: #### 5 7021-8 #### [facility] CLIA [id number] [address] [place] [address] [place] #### 08552-2 #### [facility] CLIA [id number] [address] [place] [address] [place] Platelets (Bld) [#/Vol] 165 10*3/uL Normal 150-400 [facility] Comment on above: Order Comment: Speci men Type: BLOOD SPECIMEN Ordering Facility: [facility] Address: [address] [place] [address] Performed By: #### 5 7021-8 #### [facility] CLIA [id number] [address] [place] [address] [place] #### 75703-0 #### [facility] CLIA [id number] [address] [place] [address] [place] RBC (Bld) [#/Vol] 3.51 10*6/uL Low 4.20-6.00 [facility] Comment on above: Order Comment: Speci men Type: BLOOD SPECIMEN Ordering Facility: [facility] Address: [address] [place] [address] Performed By: #### 5 7021-8 #### [facility] CLIA [id number] [address] [place] [address] [place] #### 52823-7 #### [facility] CLIA [id number] [address] [place] [address] [place] WBC (Bld) [#/Vol] 17.34 10*3/uL High 3.70-11.00 [facility] Comment on above: Order Comment: Speci men Type: BLOOD SPECIMEN Ordering Facility: [facility] Address: [address] [place] [address] Performed By: #### 5 7021-8 #### [facility] CLIA [id number] [address] [place] [address] [place] #### 65652-1 #### [facility] CLIA [id number] [address] [place] [address] [place] Comprehensive metabolic 2000 panelon 05-26-2025 Albumin [Mass/Vol] 3.1 g/dL Low 3.9-4.9 [facility] Comment on above: Order Comment: Speci men Type: BLOOD SPECIMEN Ordering Facility: [facility] Address: [address] [place] [address] Performed By: #### L [id number], 21283-4, 44019-8, 3040-3, 76852-5 #### [facility] CLIA [id number] [address] [place] [address] [place] ALP [Catalytic activity/Vol] 173 U/L High 38-113 [facility] Comment on above: Order Comment: Speci men Type: BLOOD SPECIMEN Ordering Facility: [facility] Address: [address] [place] [address] Performed By: #### L [id number], 24406-1, 03687-6, 3040-3, 02344-7 #### [facility] CLIA [id number] [address] [place] [address] [place] ALT [Catalytic activity/Vol] 19 U/L Normal 10-54 [facility] Comment on above: Order Comment: Speci men Type: BLOOD SPECIMEN Ordering Facility: [facility] Address: [address] [place] [address] Performed By: #### L [id number], 27983-0, 29576-9, 3040-3, 01972-2 #### [facility] CLIA [id number] [address] [place] [address] [place] Anion gap [Moles/Vol] 26 mmol/L High 8-15 [facility] Comment on above: Order Comment: Speci men Type: BLOOD SPECIMEN Ordering Facility: [facility] Address: [address] [place] [address] Performed By: #### L [id number], 85610-2, 80188-5, 3040-3, 71399-6 #### [facility] CLIA [id number] [address] [place] [address] [place] AST [Catalytic activity/Vol] 33 U/L Normal 14-40 [facility] Comment on above: Order Comment: Speci men Type: BLOOD SPECIMEN Ordering Facility: [facility] Address: [address] [place] [address] Performed By: #### L [id number], 74901-3, 38424-4, 3040-3, 38013-5 #### [facility] CLIA [id number] [address] [place] [address] [place] Bilirubin [Mass/Vol] 0.4 mg/dL Normal 0.2-1.3 [facility] Comment on above: Order Comment: Speci men Type: BLOOD SPECIMEN Ordering Facility: [facility] Address: [address] [place] [address] Performed By: #### L [id number], 67059-0, 98425-2, 3040-3, #### [facility] CLIA [id number] [address] [place] [address] [place] Calcium [Mass/Vol] 7.0 mg/dL Low 8.5-10.2 [facility] Comment on above: Order Comment: Speci men Type: BLOOD SPECIMEN Ordering Facility: [facility] Address: [address] [place] [address] Performed By: #### L [id number], 21460-2, 50761-2, 3040-3, #### [facility] CLIA [id number] [address] [place] [address] [place] Chloride [Moles/Vol] 83 mmol/L Low 98-107 [facility] Comment on above: Order Comment: Speci men Type: BLOOD SPECIMEN Ordering Facility: [facility] Address: [address] [place] [address] Performed By: #### L [id number], 40441-6, 72080-1, 3040-3, #### [facility] CLIA [id number] [address] [place], [place] [address] [place] CO2 [Moles/Vol] 17 mmol/L Low 22-30 [facility] Comment on above: Order Comment: Speci men Type: BLOOD SPECIMEN Ordering Facility: [facility] Address: [address] [place] [address] Performed By: #### L [id number], 51383-4, 50737-6, 3040-3, #### [facility] CLIA [id number] [address] [place], [place] [address] [place] Creatinine [Mass/Vol] 13.52 mg/dL High 0.73-1.22 [facility] Comment on above: Order Comment: Speci men Type: BLOOD SPECIMEN Ordering Facility: [facility] Address: [address] [place] [address] Performed By: #### L [id number], 18930-2, 34820-1, 0-3, #### [facility] CLIA [id number] [address] [place], [place] [address] [place] eGFRcr SerPlBld CKD-EPI 2020 3 mL/min/1.73m??? Low >=60 [facility] Comment on above: Order Comment: Speci men Type: BLOOD SPECIMEN Ordering Facility: [facility] Address: [address] [place] [address] Result Comment: Maggy mated Glomerular Filtration Rate (eGFR) is calculated using the 2020 CKD-EPI creatinine equation. This equation utilizes serum creatinine, sex, and age as parameters. The creatinine assay has traceable calibration to isotope dilution-mass spectrometry. Refer to KDIGO guidelines for clinical interpretation. In patients with unstable renal function, e.g. those with acute kidney injury, the eGFR may not accurately reflect actual GFR. Performed By: #### L [id number], 90557-7, 12149-8, 3040-3, 29180-1 #### [facility] CLIA [id number] [address] [place], [place] [address] [place] Glucose [Mass/Vol] 228 mg/dL High 74-99 [facility] Comment on above: Order Comment: Vandana aguero Type: BLOOD SPECIMEN Ordering Facility: [facility] Address: [address] [place] [address] Result Comment: The [place] Diabetes [employer] (ADA) provides guidance for cutoff values for fasting glucose and random glucose. The ADA defines fasting as no caloric intake for at least 8 hours. Fasting plasma glucose results between 100 to 125 mg/dL indicate increased risk for diabetes (prediabetes). Fasting plasma glucose results greater than or equal to 126 mg/dL meet the criteria for diagnosis of diabetes. In the absence of unequivocal hyperglycemia, results should be confirmed by repeat testing. In a patient with classic symptoms of hyperglycemia or hyperglycemic crisis, random plasma glucose results greater than or equal to 200 mg/dL meet the criteria for diagnosis of diabetes. Reference: Standards of Medical Care in Diabetes 2016, [place] [employer]. Diabetes Care. 2016.39(Suppl 1). Performed By: #### L PA2660, 32831-0, 65401-6, 3040-3, 07748-8 #### [facility] CLIA [id number] [address] [place] [address] [place] Potassium [Moles/Vol] 3.9 mmol/L Normal 3.7-5.1 [facility] Comment on above: Order Comment: Vandana aguero Type: BLOOD SPECIMEN Ordering Facility: [facility] Address: [address] [place] [address] Performed By: #### L AQ4773, 45977-1, 12357-1, 3040-3, 83439-5 #### [facility] CLIA [id number] [address] [place] [address] [place] Protein [Mass/Vol] 7.0 g/dL Normal 6.3-8.0 [facility] Comment on above: Order Comment: Vandana aguero Type: BLOOD SPECIMEN Ordering Facility: [facility] Address: [address] [place] [address] Performed By: #### L [id number], 87451-4, 10427-3, 3040-3, 34913-4 #### [facility] CLIA [id number] [address] [place] [address] [place] Sodium [Moles/Vol] 126 mmol/L Low 136-144 [facility] Comment on above: Order Comment: Speci men Type: BLOOD SPECIMEN Ordering Facility: [facility] Address: [address] [place] [address] Performed By: #### L [id number], 68907-8, 27212-9, 3040-3, 04588-0 #### [facility] CLIA [id number] [address] [place] [address] [place] Urea nitrogen [Mass/Vol] 90 mg/dL High 9-24 [facility] Comment on above: Order Comment: Speci men Type: BLOOD SPECIMEN Ordering Facility: [facility] Address: [address] [place] [address] Performed By: #### L [id number], 95806-5, 84553-8, 3040-3, 04468-4 #### [facility] CLIA [id number] [address] [place] [address] [place] ECG COMPLETEon 05-26-2025 ECG COMPLETE Ventricular Rate : 9 0 BPM Atrial Rate : 90 BPM QRS Duration : 174 ms Q-T Interval : 478 ms QTC Calculation(Bazett) : 584 ms Calculated P Dutton : 25 degrees Calculated R Dutton : -88 degrees Calculated T Dutton : 92 degrees Ventricular-paced rhythm Abnormal ECG When compared with ECG of 21-May-2025 16:02, Vent. rate has decreased by 4 bpm Confirmed by CANDIDA LAMA MD ([id number]) on 05/26/2025 5:51:58 PM NAME : PETE CONLEY PID : [id number] : 1950 Gender : Male Race : ORD : [id number] Procedure Date : May 26 2025 17:20:03 Edit Date : May 26 2025 17:52:00 Diagnosis: Ventricular-paced rhythm Abnormal ECG When compared with ECG of 21-May-2025 16:02, Vent. rate has decreased by 4 bpm Confirmed by CANDIDA LAMA MD ([id number]) on 05/26/2025 5:51:58 PM Test Reason : HCS Location : 3 : ED Overread By : CANDIDA LAMA MD Edited By : CANDIDA LAMA MD Referred By : , Acquired by : BRIGHT GARCES [facility] ED NOTEon 05-26-2025 ED NOTE HNO ID: [id number] Author: NALINI MILLAN RN Service: ? Author Type: Registered Nurse Type: ED Notes Filed: 05/26/2025 20:26 Note Text: Second attempt made for ED nurse handoff [facility] ED NOTE HNO ID: [id number] Author: NALINI MILLAN RN Service: ? Author Type: Registered Nurse Type: ED Notes Filed: 05/26/2025 19:23 Note Text: Pacemaker interrogated at this time with [employer] interrogation device [facility] ED PROV NOTEon 05-26-2025 ED PROV NOTE HNO ID: [id number] Author: CANDIDA LAMA MD Service: ? Author Type: Physician Type: ED Provider Notes Filed: 05/26/2025 19:43 Note Text: ED Provider Note Patient Name: Pete Conley : 1950 SERVICE DATE: 05/26/25 History Patient presents with: Shortness of Breath Weakness Fever Dizziness 75-year-old male presents complaints of shortness of breath, difficulty breathing, generalized fatigue, weakness, fever. Patient was seen here 5 days ago for similar complaints. At that time there was also concern for possible defibrillator discharging. After workup, patient diagnosed with bronchitis and hyponatremia and discharged for follow-up. Patient states that he has been taking his medications. He has not improved. Still feeling very weak, feeling short of breath. Breathing gets worse with exertion and seems to improve with rest. He is not waking up at night gasping for air. He is not having any chest pain nor does he have pain with breathing. Running a low-grade fever as well as having some chills. Denied any headache or ear pain though. No other abdominal discomfort. No vomiting. Patient does home peritoneal dialysis and has not complained of any abdominal discomfort. PAST MEDICAL HISTORY Diagnosis Date Acute and chronic respiratory failure with hypoxia (HCC) Bilateral carotid artery stenosis 10/26/2023 Right internal carotid artery: 60-79% stenosis. Left: 20-39% stenosis. Monitored by Vascular Surgeon Dr. Domingo Monsalve. 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 Dolores Welsh COPD (chronic obstructive pulmonary disease) ([facility]) Lead Portfolio Manager Dr. Crystal Bauer Diabetes mellitus type 2 ([facility]) History of 2019 novel coronavirus disease (COVID-19) 09/08/2021 History of cardiac cath 10/30/2023 LAD: Mid LAD is narrowed 60% (DFR 0.79% - hemodynamically significant stenosis). Mid LCx is narrowed 80%. Mid RCA is narrowed 80%. Stent was not placed. CABG indicated. Pt declined CABG due to poor surgical candidate related to many comobidities. Patient elects medical therapy. History of cardiac monitoring 10/02/2023 Patient wore event monitor secondary to palpitations and syncope and collapse. Underlying sinus rhythm was appreciated with excellent heart rate variability. Heart rate ranging 50-120, average heart rate 70. Very rare PVC's are isolated no sustained evidence of atrial fibrillation or ventricular tachycardia. Patient is on Coreg 6.25 mg BID. Symptoms have no relationship to any arrhythmias. History of cardiovascular stress test 10/10/2021 -Impression: Enlarging dilated LV and the setting of global hypokinesis. Calculated EF 39%. This may represent the sequela of chronic hypertension or other cardiomyopathy. No images evidence of stress-induced myocardial ischemia. History of echocardiogram 03/18/2021 Echocardiogram demonstrates a suboptimal study. EF 50 to 55%. Moderate concentric LVH. Class I diastolic dysfunction. Left atrium is mildly dilated. Mild a S. Mild to moderate MR. Mild TR. Borderline to mild PHT. History of echocardiogram 10/04/2022 EF 45-50%. Left ventricle cavity size is normal. Wall thickness is normal. Systolic funciton is mildly reduced. Hypokinesis of the anterolateral myocardium. Hypokinesis of the inferioir myocardium Grade 2 diastolic dysfunction. Mitral valve the annulus is mildly calcified. The leaflets are moderately thickened. Thickening. Severe regurgitation. Left atrium is mildly dilated. History of echocardiogram 12/22/2022 EF 50% demonstrates concentric left ventricular hypertrophy. Slight hypokinesis of distal septal wall. Mild to moderate MR. Mild TR. Aortic valve is sclerotic, thickened, but the valve area is noted to be normal. History of echocardiogram w/ Bubble Study 09/24/2023 EF 30-35%, LV- moderately enlarged. LA-moderately enlarged. RA-moderately enlarged. Moderate to severe MV regurgitation. Moderate TV regurgitation. Moderate pulmonary hypertension. History of echocardiography 10/07/2021 -Echocardiogram demonstrates of the difficult study with minimal information obtainable. LV is dilated with an EF at 45 to 50%. Diastolic function is indeterminate. Aortic valve is poorly visualized but no evidence for aortic stenosis by Doppler analysis. Moderate mitral annular calcification without hemodynamically significant MS. Mild MR. History of smoking History of transesophageal echocardiography (MILA) 10/30/2023 EF 30-35%. Moderately severe MR with PISA of 0.29 cm?. Mild TR. HTN (hypertension) Obstructive sleep apnea on CPAP Peritoneal dialysis status 6-days per week, does not do on Sunday. Severe protein-calorie malnutrition (HCC) 12/28/2024 PAST SURGICAL HISTORY Procedure Laterality Date PAST SURGICAL HISTORY OF Right TMA TONSILLECTOMY HX FAMILY HISTORY Problem Relation Ag (more content not included)... Normal [facility] Ferritin SerPl-mCncon 2024 Ferritin [Mass/Vol] 798.6 ng/mL High 30.3-565.7 [facility] Comment on above: Order Comment: Vandana aguero Type: BLOOD SPECIMEN Ordering Facility: [facility] Address: [address] [place] [address] Performed By: #### 5 7021-8 #### [facility] CLIA [id number] [address] [place] [address] [place] #### 54800-6 #### [facility] CLIA [id number] [address] [place] [address] [place] Gas and Carbon monoxide pane l (BldV)on 05-26-2025 BASE DEFICIT, VENOUS -5 mmol/L Low -2-0 [facility] Comment on above: Order Comment: [facility] Type: VENOUS BLOOD SPECIMENOrdering Facility: [facility] Address: [address] [place] [address] Performed By: #### 2 4344-4 ####[facility] [id number] [place] [address] [place] Body temperature 98.6 [degF] Normal [facility] Comment on above: Order Comment: Speci men Type: VENOUS BLOOD SPECIMENOrdering Facility: [facility] Address: [address] [place] [address] Performed By: #### 2 4344-4 ####[id number] [place] [address] [place] Calcium.ionized (Bld) [Mass/Vol] 0.74 mmol/L Low 1.08-1.30 [facility] Comment on above: Order Comment: Speci men Type: VENOUS BLOOD SPECIMENOrdering Facility: [facility] Address: [address] [place] [address] Performed By: #### 2 4344-4 ####[facility] [id number] [place] [address] [place] Calcium.ionized adjusted to pH 7.4 (BldA) [Moles/Vol] 0.74 mmol/L Low 1.08-1.30 [facility] Comment on above: Order Comment: Speci men Type: VENOUS BLOOD SPECIMENOrdering Facility: [facility] Address: [address] [place] [address] Performed By: #### 2 4344-4 ####[facility] [id number] [address] [place] Carboxyhemoglobin (BldV) [Mass fraction] 1.1 % Normal 0.0-2.0 [facility] Comment on above: Order Comment: Speci men Type: VENOUS BLOOD SPECIMENOrdering Facility: [facility] Address: [address] [place] [address] Result Comment: Carb oxyhemoglobin Reference Range for Smokers: 2.0-8.0% Performed By: #### 2 4344-4 ####[facility] [id number] [place] [address] [place] Chloride [Moles/Vol] 92 mmol/L Low 97-105 [facility] Comment on above: Order Comment: Speci men Type: VENOUS BLOOD SPECIMENOrdering Facility: [facility] Address: [address] [place] [address] Performed By: #### 2 4344-4 ####[facility] LABIA [id number] [place] [address] [place] CO2 (BldV) [Partial pressure] 28 mm[Hg] Low 42-55 [facility] Comment on above: Order Comment: Speci men Type: VENOUS BLOOD SPECIMENOrdering Facility: [facility] Address: [address] [place] [address] Performed By: #### 2 4344-4 ####[facility] [id number] [place] [address] [place] Glucose [Mass/Vol] 203 mg/dL High 60-105 [facility] Comment on above: Order Comment: Speci men Type: VENOUS BLOOD SPECIMENOrdering Facility: [facility] Address: [address] [place] [address] Performed By: #### 2 4344-4 ####[facility] [id number] [place] [address] [place] HCO3 (Bld) [Moles/Vol] 18 mmol/L Low 24-28 [facility] Comment on above: Order Comment: Speci men Type: VENOUS BLOOD SPECIMENOrdering Facility: [facility] Address: [address] [place] [address] Performed By: #### 2 4344-4 ####[facility] [id number] [place] [address] [place] Hematocrit (Bld) [Volume fraction] 32.7 % Low 39.0-51.0 [facility] Comment on above: Order Comment: Speci men Type: VENOUS BLOOD SPECIMENOrdering Facility: [facility] Address: [address] [place] [address] Performed By: #### 2 4344-4 ####[facility] [id number] [place] [address] [place] Hemoglobin (Bld) [Mass/Vol] 10.7 g/dL Low 13.0-17.0 [facility] Comment on above: Order Comment: Speci men Type: VENOUS BLOOD SPECIMENOrdering Facility: [facility] Address: [address] [id number] Performed By: #### 2 4344-4 ####[facility] LABCLIA [id number] [place] [address] [place] Lactate [Moles/Vol] 1.2 mmol/L Normal 0.5-2.2 [facility] Comment on above: Order Comment: Speci men Type: VENOUS BLOOD SPECIMENOrdering Facility: [facility] Address: [address] [place] [address] Performed By: #### 2 4344-4 ####[facility] LABIA [id number] [place] [address] [place] Methemoglobin (Bld) [Mass fraction] 1.0 % Normal 0.0-1.5 [facility] Comment on above: Order Comment: Speci men Type: VENOUS BLOOD SPECIMENOrdering Facility: [facility] Address: [address] [place] [address] Performed By: #### 2 4344-4 ####[facility]IA [id number] [place] [address] [place] O2 THERAPY RA=Room Air Normal [facility] Comment on above: Order Comment: Speci men Type: VENOUS BLOOD SPECIMENOrdering Facility: [facility] Address: [address] [place], [place] [address] Performed By: #### 2 4344-4 ####[facility] LABIA [id number] [place] [address] [place] Oxygen (BldV) [Partial pressure] 169 mm[Hg] High 35-45 [facility] Comment on above: Order Comment: Speci men Type: VENOUS BLOOD SPECIMENOrdering Facility: [facility] Address: [address] [place], [place] [address] Performed By: #### 2 4344-4 ####[facility] LABIA [id number] [place] [address] [place] Oxygen saturation in Venous blood 98 % High 60-85 [facility] Comment on above: Order Comment: Speci men Type: VENOUS BLOOD SPECIMENOrdering Facility: [facility] Address: [address] [place] [address] Performed By: #### 2 4344-4 ####[facility] [id number] [place] [address] [place] [facility] Oxyhemoglobin (BldV) [Mass fraction] 96 % High 60-85 [facility] Comment on above: Order Comment: Speci men Type: VENOUS BLOOD SPECIMENOrdering Facility: [facility] Address: [address] [place] [address] Performed By: #### 2 4344-4 ####[facility] [id number] [place] [address] [place] pH (BldV) 7.42 [pH] Normal 7.32-7.42 [facility] Comment on above: Order Comment: Speci men Type: VENOUS BLOOD SPECIMENOrdering Facility: [facility] Address: [address] [place] [address] Performed By: #### 2 4344-4 ####[facility] [id number] [place] [address] [place] Potassium [Moles/Vol] 5.4 mmol/L High 3.5-5.0 [facility] Comment on above: Order Comment: Speci men Type: VENOUS BLOOD SPECIMENOrdering Facility: [facility] Address: [address] [place] [address] Performed By: #### 2 4344-4 ####[facility] [id number] [place] [address] [place] Sodium [Moles/Vol] 125 mmol/L Low 136-144 [facility] Comment on above: Order Comment: Speci men Type: VENOUS BLOOD SPECIMENOrdering Facility: [facility] Address: [address] [place] [address] Performed By: #### 2 4344-4 ####[facility] [id number] [place] [address] [place] HIGH SENSITIVITY TROPONIN T (INITIAL)on 05-26-2025 Troponin T.cardiac High sensitivity method [Mass/Vol] 360 ng/L High <12 [facility] Comment on above: Order Comment: Speci men Type: BLOOD SPECIMENOrdering Facility: [facility] Address: [address] [place] [address] Performed By: #### L GI8364, 89817-4, 57464-1, 3040-3, 71057-6 ####[facility] LABCLIA [id number] [address] [place] HIGH SENSITIVITY TROPONIN T (SECOND)on 05-26-2025 Troponin T.cardiac High sensitivity method [Mass/Vol] 355 ng/L High <12 [facility] Comment on above: Order Comment: Nayi men Type: BLOOD SPECIMEN [facility] Address: [address] [place] [address] Performed By: #### L [id number] #### [facility] CLIA [id number] [place] HIGH SENSITIVITY TROPONIN T (THIRD) 3 HRS AFTER INITIALon 05-26-2025 Troponin T.cardiac High sensitivity method [Mass/Vol] 354 ng/L High <[address] [place] [address] Comment on above: Order Comment: Speci men Type: BLOOD SPECIMENOrdering Facility: [facility] Address: [address] [place] [address] Performed By: #### 5 0190-8, PBD8200, 2276-4, TSHRF ####[facility] LABCLIA [id number] [place] [address] [place] HbA1c (Bld)on 05-26-2025 Average glucose Estimated from glycated hemoglobin (Bld) [Mass/Vol] 209 mg/dL Normal [facility] Comment on above: Order Comment: Speci men Type: BLOOD SPECIMEN [facility] Address: [address] [place] [address] Result Comment: eAG: (Estimated average glucose) is a calculated value from HgbA1c and is risk control field representative of the average blood glucose level in the last 2-3 month period. Performed By: #### 5 7021-8 #### [facility] CLIA [id number] [address] [place] [address] [place] #### 17095-0 #### [facility] CLIA [id number] [address] [place] [address] [place] HbA1c (Bld) [Mass fraction] 8.9 % High 4.3-5.6 [facility] Comment on above: Order Comment: Speci men Type: BLOOD SPECIMEN [facility] Address: [address] [place] [address] Result Comment: [place] Diabetes Association guidelines indicate that patients with HgbA1c in the range 5.7-6.4% are at increased risk for development of diabetes, and intervention by lifestyle modification may be beneficial. HgbA1c greater or equal to 6.5% is considered diagnostic of diabetes. Performed By: #### 5 7021-8 #### [facility] CLIA [id number] [address] [place] [address] [place] #### 60348-9 #### [facility] CLIA [id number] [address] [place] [address] [place] Iron and Iron binding capaci ty panelon 05-26-2025 Iron [Mass/Vol] 31 ug/dL Low 41-186 [facility] Comment on above: Order Comment: Speci men Type: BLOOD SPECIMEN [facility] Address: [address] [place] [address] Performed By: #### 5 7021-8 #### [facility] CLIA [id number] [address] [place] [address] [place] #### 79137-9 #### [facility] CLIA [id number] [address] [place] [address] [place] Iron binding capacity [Mass/Vol] 162 ug/dL Low 232-386 [facility] Comment on above: Order Comment: Speci men Type: BLOOD SPECIMEN [facility] Address: [address] [place] [address] Performed By: #### 5 7021-8 #### [facility] CLIA [id number] [address] [place] [address] [place] #### 69293-4 #### [facility] CLIA [id number] [address] [place] [address] [place] Iron/TIBC [Molar ratio] 19.1 % Normal 15.0-57.0 [facility] Comment on above: Order Comment: Speci men Type: BLOOD SPECIMEN [facility] Address: [address] [place] [address] Performed By: #### 5 7021-8 #### [facility] CLIA [id number] [address] [place] [address] [place] #### 58880-2 #### [facility] CLIA [id number] [address] [place] [address] [place] Lipase SerPl-cCncon 05-26-20 25 Lipase [Catalytic activity/Vol] 89 U/L High 16-61 [facility] Comment on above: Order Comment: Speci men Type: BLOOD SPECIMENOrdering Facility: [facility] Address: [address] [place] [address] Performed By: #### L HD7739, 87905-1, 13986-8, 3040-3, 98864-8 ####[facility] LABCLIA [id number] [place] [address] [place] Magnesium SerPl-mCncon 05-26 Magnesium [Mass/Vol] 1.2 mg/dL Low 1.7-2.3 [facility] Comment on above: Order Comment: Speci men Type: BLOOD SPECIMENOrdering Facility: [facility] Address: [address] [place] [address] Performed By: #### L LA5851, 22010-8, 65671-3, 3040-3, 54509-4 ####[facility] LABCLIA [id number] [address] NT-proBNP SerPl-mCncon 05-26 Natriuretic peptide.B prohormone N-Terminal [Mass/Vol] >84171 High <450 [facility] Comment on above: Order Comment: Speci men Type: BLOOD SPECIMENOrdering Facility: [facility] Address: [address] [place] [address] Performed By: #### L NE6005, 17010-4, 14703-4, 3040-3, 21205-0 ####[facility] LABCLIA [id number] [address] Procalcitonin SerP-ncon 1 Procalcitonin [Mass/Vol] 2.32 ng/mL High <0.09 [facility] Comment on above: Order Comment: Speci men Type: BLOOD SPECIMEN [facility] Address: [address] [place] [address] Result Comment: For a guided interpretation of test results, please visit the Change in Procalcitonin Calculator, [email or web address]. Performed By: #### L [id number] #### [facility] CLIA [id number] [place] TSH W/REFLEX FT4on 5 TSH Qn 1.140 m[IU]/L Normal 0.270-4.200 [facility] Comment on above: Order Comment: Speci men Type: BLOOD SPECIMENOrdering Facility: [facility] Address: [address] [place] [address] Performed By: #### 5 0190-8, ZWY0812, 2276-4, TSHRF ####[facility] LABCLIA [id number] [address] [place] XR CHEST 2V FRONTAL/LATon XR CHEST 2V FRONTAL/LAT * * *Final Report* * * DATE OF EXAM: May 26 2025 6:34PM UDX 5291 - XR CHEST 2V FRONTAL/LAT / PROCEDURE REASON: Shortness of breath * * * * Physician Interpretation * * * * EXAMINATION: CHEST RADIOGRAPH (2 VIEW FRONTAL and LATERAL) CLINICAL HISTORY: Shortness of breath MQ: XC2_6 EXAM DATE/TIME: 05/26/2025 6:34 PM COMPARISON: 05/21/2025. RESULT: Lines, tubes, and devices: An ICD is noted with leads projecting the region the right atrium, right ventricle and coronary sinus. Lungs and pleura: Mildly increased interstitial markings are noted. No focal or sizable pleural effusions. Cardiomediastinal silhouette: Stable cardiomediastinal silhouette. Postsurgical changes are noted status post median sternotomy. Bones and soft tissues: Degenerative changes are noted in the spine with DISH. IMPRESSION: Findings suggestive of mild pulmonary edema. Director Game: PSCB Transcribe Date/Time: May 26 2025 7:33P Dictated by : ALEX CHANDRA MD This examination was interpreted and the report reviewed and electronically signed by: ALEX CHANDRA MD on May 26 2025 7:34PM EST [id number] Normal [facility] CBC W Auto Differential pane l (Bld)on 05-21-2025 Basophils (Bld) [#/Vol] 0.05 10*3/uL Normal <0.11 [facility] Comment on above: Order Comment: Speci men Type: BLOOD SPECIMENOrdering Facility: [facility] Address: [address] [place] [address] Performed By: #### 5 7021-8 ####[facility] LABCLIA [id number] [place] [address] [place] Basophils/100 WBC (Bld) 0.5 % Normal [facility] Comment on above: Order Comment: Speci men Type: BLOOD SPECIMENOrdering Facility: [facility] Address: [address] [place] [address] Performed By: #### 5 7021-8 ####[facility] LABCLIA [id number] [place] [address] [place] Differential cell count method Nom (Bld) [facility] Comment on above: Order Comment: Speci men Type: BLOOD SPECIMENOrdering Facility: [facility] Address: [address] [place] [address] Performed By: #### 5 7021-8 ####[facility] LABIA [id number] [place] [address] [place] Eosinophils (Bld) [#/Vol] 0.18 10*3/uL Normal <0.46 [facility] Comment on above: Order Comment: Speci men Type: BLOOD SPECIMENOrdering Facility: [facility] Address: [address] [place] [address] Performed By: #### 5 7021-8 ####[facility] LABIA [id number] [place] [address] [place] Eosinophils/100 WBC (Bld) 1.7 % Normal [facility] Comment on above: Order Comment: Speci men Type: BLOOD SPECIMENOrdering Facility: [facility] Address: [address] [place] [address] Performed By: #### 5 7021-8 ####[facility] [id number] [place] [address] [place] Erythrocyte distribution width (RBC) [Ratio] 15.5 % High 11.5-15.0 [facility] Comment on above: Order Comment: Speci men Type: BLOOD SPECIMENOrdering Facility: [facility] Address: [address] [place] [address] Performed By: #### 5 7021-8 ####[facility] LABIA [id number] [place] [address] [place] Hematocrit (Bld) [Volume fraction] 34.2 % Low 39.0-51.0 [facility] Comment on above: Order Comment: Speci men Type: BLOOD SPECIMENOrdering Facility: [facility] Address: [address] [place] [address] Performed By: #### 5 7021-8 ####[facility] LABIA [id number] [place] [address] [place] Hemoglobin (Bld) [Mass/Vol] 11.7 g/dL Low 13.0-17.0 [facility] Comment on above: Order Comment: Speci men Type: BLOOD SPECIMENOrdering Facility: [facility] Address: [address] [place] [address] Performed By: #### 5 7021-8 ####[facility] LABIA [id number] [address] Immature granulocytes (Bld) [#/Vol] 0.20 10*3/uL High <0.10 [facility] Comment on above: Order Comment: Speci men Type: BLOOD SPECIMENOrdering Facility: [facility] Address: [address] [place] [address] Performed By: #### 5 7021-8 ####[facility] [id number] [address] [place] [facility] Immature granulocytes/100 WBC (Bld) 1.9 % Normal [facility] Comment on above: Order Comment: Speci men Type: BLOOD SPECIMENOrdering Facility: [facility] Address: [address] [place] [address] Performed By: #### 5 7021-8 ####[facility] [id number] [address] [place] Lymphocytes (Bld) [#/Vol] 0.95 10*3/uL Low 1.00-4.00 [facility] Comment on above: Order Comment: Speci men Type: BLOOD SPECIMENOrdering Facility: [facility] Address: [address] [place] [address] Performed By: #### 5 7021-8 ####[facility] LABIA [id number] [address] STATES [facility] Lymphocytes/100 WBC (Bld) 8.9 % Normal [facility] Comment on above: Order Comment: Speci men Type: BLOOD SPECIMENOrdering Facility: [facility] Address: [address] [place] [address] Performed By: #### 5 7021-8 ####[facility] LABIA [id number] [place] [address] [place] MCH (RBC) [Entitic mass] 31.3 pg Normal 26.0-34.0 [facility] Comment on above: Order Comment: Speci men Type: BLOOD SPECIMENOrdering Facility: [facility] Address: [address] [place] [address] Performed By: #### 5 7021-8 ####[facility] [id number] [place] [address] [place] MCHC (RBC) [Mass/Vol] 34.2 g/dL Normal 30.5-36.0 [facility] Comment on above: Order Comment: Speci men Type: BLOOD SPECIMENOrdering Facility: [facility] Address: [address] [place] [address] Performed By: #### 5 7021-8 ####[facility] [id number] [place] [address] [place] MCV (RBC) [Entitic vol] 91.4 fL Normal 80.0-100.0 [facility] Comment on above: Order Comment: Speci men Type: BLOOD SPECIMENOrdering Facility: [facility] Address: [address] [place] [address] Performed By: #### 5 7021-8 ####[facility] [id number] [place] [address] [place] Monocytes (Bld) [#/Vol] 1.42 10*3/uL High <0.87 [facility] Comment on above: Order Comment: Speci men Type: BLOOD SPECIMENOrdering Facility: [facility] Address: [address] [place] [address] Performed By: #### 5 7021-8 ####[facility] [id number] [address] [place] Monocytes/100 WBC (Bld) 13.3 % Normal [facility] Comment on above: Order Comment: Speci men Type: BLOOD SPECIMENOrdering Facility: [facility] Address: [address] [place] [address] Performed By: #### 5 7021-8 ####[facility] LABIA [id number] [place] [address] [place] Neutrophils (Bld) [#/Vol] 7.87 10*3/uL High 1.45-7.50 [facility] Comment on above: Order Comment: Speci men Type: BLOOD SPECIMENOrdering Facility: [facility] Address: [address] [place] [address] Performed By: #### 5 7021-8 ####[facility] LABIA [id number] [place] [address] [place] Neutrophils/100 WBC (Bld) 73.7 % Normal [facility] Comment on above: Order Comment: Speci men Type: BLOOD SPECIMENOrdering Facility: [facility] Address: [address] [place] [address] Performed By: #### 5 7021-8 ####[facility] [id number] [place] [address] [place] Nucleated RBC (Bld) [#/Vol] 10*3/uL Normal <0.01 [facility] Comment on above: Order Comment: Speci men Type: BLOOD SPECIMENOrdering Facility: [facility] Address: [address] [place] [address] Performed By: #### 5 7021-8 ####[facility] [id number] [place] [address] [place] Nucleated RBC/100 WBC (Bld) [Ratio] 0.0 /100 WBC Normal [facility] Comment on above: Order Comment: Speci men Type: BLOOD SPECIMENOrdering Facility: [facility] Address: [address] [place] [address] Performed By: #### 5 7021-8 ####[facility] LABIA [id number] [place] [address] [place] Platelet mean volume (Bld) [Entitic vol] 9.7 fL Normal 9.0-12.7 [facility] Comment on above: Order Comment: Speci men Type: BLOOD SPECIMENOrdering Facility: [facility] Address: [address] [place] [address] Performed By: #### 5 7021-8 ####[facility] LABIA [id number] [place] [address] [place] Platelets (Bld) [#/Vol] 135 10*3/uL Low 150-400 [facility] Comment on above: Order Comment: Speci men Type: BLOOD SPECIMENOrdering Facility: [facility] Address: [address] [place] [address] Performed By: #### 5 7021-8 ####[facility] [id number] [place] [address] [place] RBC (Bld) [#/Vol] 3.74 10*6/uL Low 4.20-6.00 [facility] Comment on above: Order Comment: Speci men Type: BLOOD SPECIMENOrdering Facility: [facility] Address: [address] [place] [address] Performed By: #### 5 7021-8 ####[facility] [id number] [place] [address] [facility] WBC (Bld) [#/Vol] 10.67 10*3/uL Normal 3.70-11.00 [facility] Comment on above: Order Comment: Speci men Type: BLOOD SPECIMENOrdering Facility: [facility] Address: [address] [place] [address] Performed By: #### 5 7021-8 ####[facility] [id number] [place] [id number] [facility] CTA CHEST (NON GATED) W IVCO N PEon 05-21-2025 CTA CHEST (NON GATED) W IVCON PE * * *Final Report* * * DATE OF EXAM: May 21 2025 7:30PM [facility] [place] [id number] - CTA CHEST (NON GATED) W IVCON PE / PROCEDURE REASON: Pulmonary embolism (PE) suspected, high prob * * * * Physician Interpretation * * * * EXAMINATION: CTA CHEST (NON GATED) W IVCON PE Exam Date/Time: 05/21/2025 7:30 PM CLINICAL HISTORY: Pulmonary embolism (PE) suspected, high prob TECHNIQUE: Spiral CT acquisition of the chest from the thoracic inlet to the upper abdomen following IV contrast using standard protocol with coronal and sagittal reformatted images. Maximum intensity projection images generated. Contrast: 100 mL Omnipaque [address] Radiation dose: Integrated Dose-length product (DLP) for this visit = 562.20 mGy*cm CT Dose Reduction Employed: Automated exposure control (AEC) COMPARISON: 07/09/2023 EXAMINATION: CTA CHEST (NON GATED) W IVCON PE Exam Date/Time: 05/21/2025 7:30 PM CLINICAL HISTORY: Pulmonary embolism (PE) suspected, high prob TECHNIQUE: Spiral CT acquisition of the chest from the thoracic inlet to the upper abdomen following IV contrast using standard protocol with coronal and sagittal reformatted images. Maximum intensity projection images generated. Contrast: 100 mL Omnipaque [address] Radiation dose: Integrated Dose-length product (DLP) for this visit = 562.20 mGy*cm CT Dose Reduction Employed: Automated exposure control (AEC) COMPARISON: 07/09/2023 RESULT: Limitations: None. Evaluation for thromboembolic disease: No filling defects to suggest acute pulmonary embolism. The central pulmonary arteries are within normal size limits. Heart, pericardium, and thoracic vessels: The heart is within normal size limits. No pericardial effusion. No thoracic aortic aneurysm. Left-sided cardiac stimulating device. Changes of prior sternotomy and mitral valve repair with unremarkable surgical changes in the anterior mediastinum and decreased on chest wall. Lower neck, lymph nodes, and mediastinum: No pathologically enlarged lymph nodes in the chest. Bilateral thyroid nodules/calcifications . Lung parenchyma, pleura, and airways: Patent central airways. Minimal scattered groundglass opacities with areas of intermittent normal lung parenchyma most frequently seen in the setting of mild air trapping. No pleural effusions. No pneumothorax. Upper abdomen: No acute abnormality. Reflux of IV contrast into the IVC and hepatic veins may indicate some degree of decreased cardiac function. Partially visualized liver has a somewhat cirrhotic morphology. Small volume upper abdominal ascites. Cholelithiasis. Bones/Soft tissues: No acute findings. Healing upper bilateral rib fractures. IMPRESSION: No acute pulmonary embolism. Minimal groundglass opacities with mosaic pattern most likely suggest some degree of mild air trapping probably related to reactive airway or bronchiolitis/bronchit is. Partially visualized liver exhibits a cirrhotic morphology. Interval development of small volume upper abdominal ascites. Cholelithiasis. New healing bilateral rib fractures. Expected CT appearance of new postsurgical changes/sternotomy. Director Game: PSCB Transcribe Date/Time: May 21 2025 8:45P Dictated by : DEANNE DESAI MD This examination was interpreted and the report reviewed and electronically signed by: DEANNE DESAI MD on May 21 2025 8:54PM EST [id number] Normal [facility] Comprehensive metabolic 2000 panelon 05-21-2025 Albumin [Mass/Vol] 3.3 g/dL Low 3.9-4.9 [facility] Comment on above: Order Comment: Speci men Type: BLOOD SPECIMEN Ordering Facility: [facility] Address: [address] [place] [address] Performed By: #### L [id number] #### [facility] CLIA [id number] [address] [place] [address] [place] ALP [Catalytic activity/Vol] 177 U/L High 38-113 [facility] Comment on above: Order Comment: Speci men Type: BLOOD SPECIMEN Ordering Facility: [facility] Address: [address] [place] [address] Performed By: #### L [id number] #### [facility] CLIA [id number] [address] [place] [address] [place] ALT [Catalytic activity/Vol] 15 U/L Normal 10-54 [facility] Comment on above: Order Comment: Speci men Type: BLOOD SPECIMEN Ordering Facility: [facility] Address: [address] [place] [address] Performed By: #### L [id number] #### [facility] CLIA [id number] [address] [place] [address] [place] Anion gap [Moles/Vol] 24 mmol/L High 8-15 [facility] Comment on above: Order Comment: Speci men Type: BLOOD SPECIMEN Ordering Facility: [facility] Address: [address] [place] [address] Performed By: #### L [id number] #### [facility] CLIA [id number] [address] [place] [address] [place] AST [Catalytic activity/Vol] 23 U/L Normal 14-40 [facility] Comment on above: Order Comment: Speci men Type: BLOOD SPECIMEN Ordering Facility: [facility] Address: [address] [place] [address] Performed By: #### L [id number] #### [facility] CLIA [id number] [address] [place] [address] [place] Bilirubin [Mass/Vol] 0.4 mg/dL Normal 0.2-1.3 [facility] Comment on above: Order Comment: Speci men Type: BLOOD SPECIMEN Ordering Facility: [facility] Address: [address] [place] [address] Performed By: #### L [id number] #### [facility] CLIA [id number] [address] [place] [address] [place] Calcium [Mass/Vol] 7.7 mg/dL Low 8.5-10.2 [facility] Comment on above: Order Comment: Speci men Type: BLOOD SPECIMEN Ordering Facility: [facility] Address: [address] [place] [address] Performed By: #### L [id number] #### [facility] CLIA [id number] [address] [place] [address] [place] Chloride [Moles/Vol] 84 mmol/L Low 98-107 [facility] Comment on above: Order Comment: Speci men Type: BLOOD SPECIMEN Ordering Facility: [facility] Address: [address] [place] [address] Performed By: #### L [id number] #### [facility] CLIA [id number] [address] [place] [address] [place] CO2 [Moles/Vol] 19 mmol/L Low 22-30 [facility] Comment on above: Order Comment: Speci men Type: BLOOD SPECIMEN Ordering Facility: [facility] Address: [address] [place] [address] Performed By: #### L [id number] #### [facility] CLIA [id number] [address] [place] [address] [place] Creatinine [Mass/Vol] 12.13 mg/dL High 0.73-1.22 [facility] Comment on above: Order Comment: Vandana aguero Type: BLOOD SPECIMEN Ordering Facility: [facility] Address: [address] [place] [address] Performed By: #### L [id number] #### [facility] CLIA [id number] [address] [place] [address] [place] eGFRcr SerPlBld CKD-EPI 2020 4 mL/min/1.73m??? Low >=60 [facility] Comment on above: Order Comment: Vandana aguero Type: BLOOD SPECIMEN Ordering Facility: [facility] Address: [address] [place] [address] Result Comment: Maggy mated Glomerular Filtration Rate (eGFR) is calculated using the 2020 CKD-EPI creatinine equation. This equation utilizes serum creatinine, sex, and age as parameters. The creatinine assay has traceable calibration to isotope dilution-mass spectrometry. Refer to KDIGO guidelines for clinical interpretation. In patients with unstable renal function, e.g. those with acute kidney injury, the eGFR may not accurately reflect actual GFR. Performed By: #### L [id number] #### [facility] CLIA [id number] [address] [place] [address] [place] Glucose [Mass/Vol] 234 mg/dL High 74-99 [facility] Comment on above: Order Comment: Vandana aguero Type: BLOOD SPECIMEN Ordering Facility: [facility] Address: [address] [place] [address] Result Comment: The [place] Diabetes [employer] (ADA) provides guidance for cutoff values for fasting glucose and random glucose. The ADA defines fasting as no caloric intake for at least 8 hours. Fasting plasma glucose results between 100 to 125 mg/dL indicate increased risk for diabetes (prediabetes). Fasting plasma glucose results greater than or equal to 126 mg/dL meet the criteria for diagnosis of diabetes. In the absence of unequivocal hyperglycemia, results should be confirmed by repeat testing. In a patient with classic symptoms of hyperglycemia or hyperglycemic crisis, random plasma glucose results greater than or equal to 200 mg/dL meet the criteria for diagnosis of diabetes. Reference: Standards of Medical Care in Diabetes 2016, [place] [employer]. Diabetes Care. 2016.39(Suppl 1). Performed By: #### L [id number] #### [facility] CLIA [id number] [address] [place] [address] [place] Potassium [Moles/Vol] 4.0 mmol/L Normal 3.7-5.1 [facility] Comment on above: Order Comment: Speci men Type: BLOOD SPECIMEN Ordering Facility: [facility] Address: [address] [place] [address] Performed By: #### L [id number] #### [facility] CLIA [id number] [address] [place] [address] [place] Protein [Mass/Vol] 7.9 g/dL Normal 6.3-8.0 [facility] Comment on above: Order Comment: Speci men Type: BLOOD SPECIMEN Ordering Facility: [facility] Address: [address] [place] [address] Performed By: #### L [id number] #### [facility] CLIA [id number] [address] [place] [address] [place] Sodium [Moles/Vol] 127 mmol/L Low 136-144 [facility] Comment on above: Order Comment: Speci men Type: BLOOD SPECIMEN Ordering Facility: [facility] Address: [address] [place] [address] Performed By: #### L [id number] #### [facility] CLIA [id number] [address] [place] [address] [place] Urea nitrogen [Mass/Vol] 79 mg/dL High 9-24 [facility] Comment on above: Order Comment: Speci men Type: BLOOD SPECIMEN Ordering Facility: [facility] Address: [address] [place] [address] Performed By: #### L [id number] #### [facility] CLIA [id number] [address] [place] [address] [place] ECG COMPLETEon 05-21-2025 ECG COMPLETE Ventricular Rate : 9 4 BPM Atrial Rate : 94 BPM QRS Duration : 170 ms Q-T Interval : 466 ms QTC Calculation(Bazett) : 582 ms Calculated P Dutton : 76 degrees Calculated R Dutton : 262 degrees Calculated T Dutton : 96 degrees Ventricular-paced rhythm Abnormal ECG When compared with ECG of 27-Aug-2024 14:49, Electronic ventricular pacemaker has replaced Sinus rhythm Confirmed by SARA HAY DO ([id number]) on 05/21/2025 9:30:14 PM NAME : PETE CONLEY PID : [id number] : 1950 Gender : Male Race : ORD : [id number] Procedure Date : May 21 2025 16:02:18 Edit Date : May 21 2025 21:30:20 Diagnosis: Ventricular-paced rhythm Abnormal ECG When compared with ECG of 27-Aug-2024 14:49, Electronic ventricular pacemaker has replaced Sinus rhythm Confirmed by SARA HAY DO ([id number]) on 05/21/2025 9:30:14 PM Test Reason : HCS Location : 3 : ED ED Overread By : SARA HAY DO Edited By : SARA HAY DO Referred By : , Acquired by : JAD GODDARD [facility] ED NOTEon 05-21-2025 ED NOTE HNO ID: [id number] Author: DIVINE CASTREJON RN Service: ? Author Type: Registered Nurse Type: ED Notes Filed: 05/21/2025 19:37 Note Text: Handoff report to DENIA Fulton. Pt out of room at CT at this time. Family remains at bedside. [facility] ED NOTE HNO ID: [id number] Author: DIVINE CASTREJON RN Service: ? Author Type: Registered Nurse Type: ED Notes Filed: 05/21/2025 17:00 Note Text: Medtr[employer] report received, handed to Dr Hay [facility] ED NOTE HNO ID: [id number] Author: DIVINE CASTREJON RN Service: ? Author Type: Registered Nurse Type: ED Notes Filed: 05/21/2025 16:28 Note Text: Interrogated pacemaker with Medtr[employer] Device, states data sent, awaiting report. [facility] ED NOTE HNO ID: [id number] Author: DIVINE CASTREJON RN Service: ? Author Type: Registered Nurse Type: ED Notes Filed: 05/21/2025 19:39 Note Text: Pt to ED this afternoon from home, states he has been increasingly SOA recently, states tingling to his chest. Pt unsure if his pacemaker went off today, states he has a medtronic pacemaker. Pt does peritoneal dialysis at home throughout HS, states this last month I'm now doing it during the day too, I instill fluid to dwell all day too. Pt reports increasing SOA. Family states last night they checked on him his oxygen was 75% last night, so we put oxygen on him. States they have O2 at home from his prior open heart surgery, he's never had to use it though. States they checked on him again today around 1400, he was still in bed and hooked up to his machine, and that's not like him. Pt A/O x 4, SOA. States he's had a cough recently I'm coughing stuff up, it's clear though. CPAP at HS per [facility] ED PROV NOTEon 05-21-2025 ED PROV NOTE HNO ID: [id number] Author: SARA HAY DO Service: ? Author Type: Physician Type: ED Provider Notes Filed: 05/21/2025 21:32 Note Text: ED Provider Note Patient Name: Pete Conley : 1950 SERVICE DATE: 05/21/25 History Patient presents with: Shortness of Breath Patient is a 75-year-old male presenting to the emergency department complaint increased shortness of breath. Patient has a history of COPD, kidney failure, on peritoneal dialysis. He also has a history of coronary artery disease status post CABG, mitral valve repair, pacemaker and defibrillator placed in December of this year at [facility]. He has had increased shortness of breath since Sunday. Family states he is coughing but coughing is not unusual for him. He has not had any fevers. He denies any pain. He denies any swelling in his legs. He thinks he might be on blood thinners but is not sure. An initial triage complaint said that they thought that his defibrillator might have shocked him however patient states that he just had a tingling sensation around it and he does not think that there is any shock. He states he is has some generalized weakness. He has not been missing any of his peritoneal dialysis. 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 Left: 20-39% stenosis. Monitored by Vascular Surgeon Dr. Domingo Monsalve. 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 Dolores Welsh COPD (chronic obstructive pulmonary disease) ([facility]) Lead Portfolio Manager Dr. Crystal Bauer Diabetes mellitus type 2 ([facility]) History of 2019 novel coronavirus disease (COVID-19) 09/08/2021 History of cardiac cath 10/30/2023 LAD: Mid LAD is narrowed 60% (DFR 0.79% - hemodynamically significant stenosis). Mid LCx is narrowed 80%. Mid RCA is narrowed 80%. Stent was not placed. CABG indicated. Pt declined CABG due to poor surgical candidate related to many comobidities. Patient elects medical therapy. History of cardiac monitoring 10/02/2023 Patient wore event monitor secondary to palpitations and syncope and collapse. Underlying sinus rhythm was appreciated with excellent heart rate variability. Heart rate ranging 50-120, average heart rate 70. Very rare PVC's are isolated no sustained evidence of atrial fibrillation or ventricular tachycardia. Patient is on Coreg 6.25 mg BID. Symptoms have no relationship to any arrhythmias. History of cardiovascular stress test 10/10/2021 -Impression: Enlarging dilated LV and the setting of global hypokinesis. Calculated EF 39%. This may represent the sequela of chronic hypertension or other cardiomyopathy. No images evidence of stress-induced myocardial ischemia. History of echocardiogram 03/18/2021 Echocardiogram demonstrates a suboptimal study. EF 50 to 55%. Moderate concentric LVH. Class I diastolic dysfunction. Left atrium is mildly dilated. Mild a S. Mild to moderate MR. Mild TR. Borderline to mild PHT. History of echocardiogram 10/04/2022 EF 45-50%. Left ventricle cavity size is normal. Wall thickness is normal. Systolic funciton is mildly reduced. Hypokinesis of the anterolateral myocardium. Hypokinesis of the inferioir myocardium Grade 2 diastolic dysfunction. Mitral valve the annulus is mildly calcified. The leaflets are moderately thickened. Thickening. Severe regurgitation. Left atrium is mildly dilated. History of echocardiogram 12/22/2022 EF 50% demonstrates concentric left ventricular hypertrophy. Slight hypokinesis of distal septal wall. Mild to moderate MR. Mild TR. Aortic valve is sclerotic, thickened, but the valve area is noted to be normal. History of echocardiogram w/ Bubble Study 09/24/2023 EF 30-35%, LV- moderately enlarged. LA-moderately enlarged. RA-moderately enlarged. Moderate to severe MV regurgitation. Moderate TV regurgitation. Moderate pulmonary hypertension. History of echocardiography 10/07/2021 -Echocardiogram demonstrates of the difficult study with minimal information obtainable. LV is dilated with an EF at 45 to 50%. Diastolic function is indeterminate. Aortic valve is poorly visualized but no evidence for aortic stenosis by Doppler analysis. Moderate mitral annular calcification without hemodynamically significant MS. Mild MR. History of smoking History of transesophageal echocardiography (MILA) 10/30/2023 EF 30-35%. Moderately severe MR with PISA of 0.29 cm?. Mild TR. HTN (hypertension) Obstructive sleep apnea on CPAP Peritoneal dialysis status 6-days per week, does not do on Sunday. Severe protein-calorie malnutrition (HCC) 12/28/2024 PAST SURGICAL HISTORY Procedure Laterality Date PAST SURGICAL HI (more content not included)... Normal [facility] Gas and Carbon monoxide pane l (BldV)on 05-21-2025 BASE DEFICIT, VENOUS -5 mmol/L Low -2-0 [facility] Comment on above: Order Comment: Vandana aguero Type: BLOOD SPECIMEN Ordering Facility: [facility] Address: [address] [place] [address] Performed By: #### L [id number] #### [facility] CLIA [id number] [address] [place] [address] [place] Body temperature 98.6 [degF] Normal [facility] Comment on above: Order Comment: Vandana aguero Type: BLOOD SPECIMEN Ordering Facility: [facility] Address: [address] [place] [address] Performed By: #### L [id number] #### [facility] CLIA [id number] [address] [place] [address] [place] Calcium.ionized (Bld) [Mass/Vol] 0.78 mmol/L Low 1.08-1.30 [facility] Comment on above: Order Comment: Vandana aguero Type: BLOOD SPECIMEN Ordering Facility: [facility] Address: [address] [place] [address] Performed By: #### L [id number] #### [facility] CLIA [id number] [address] [place] [address] [place] Calcium.ionized adjusted to pH 7.4 (BldA) [Moles/Vol] 0.79 mmol/L Low 1.08-1.30 [facility] Comment on above: Order Comment: Speci men Type: BLOOD SPECIMEN Ordering Facility: [facility] Address: [address] [place] [address] Performed By: #### L [id number] #### [facility] CLIA [id number] [address] [place] [address] [place] Carboxyhemoglobin (BldV) [Mass fraction] 1.1 % Normal 0.0-2.0 [facility] Comment on above: Order Comment: Speci men Type: BLOOD SPECIMEN Ordering Facility: [facility] Address: [address] [place] [address] Result Comment: Carb oxyhemoglobin Reference Range for Smokers: 2.0-8.0% Performed By: #### L [id number] #### [facility] CLIA [id number] [address] [place] [address] [place] Chloride [Moles/Vol] 94 mmol/L Low 97-105 [facility] Comment on above: Order Comment: Speci men Type: BLOOD SPECIMEN Ordering Facility: [facility] Address: [address] [place] [address] Performed By: #### L [id number] #### [facility] CLIA [id number] [address] [place] [address] [place] CO2 (BldV) [Partial pressure] 28 mm[Hg] Low 42-55 [facility] Comment on above: Order Comment: Speci men Type: BLOOD SPECIMEN Ordering Facility: [facility] Address: [address] [place] [address] Performed By: #### L [id number] #### [facility] CLIA [id number] [address] [place] [address] [place] Glucose [Mass/Vol] 204 mg/dL High 60-105 [facility] Comment on above: Order Comment: Speci men Type: BLOOD SPECIMEN Ordering Facility: [facility] Address: [address] [place] [address] Performed By: #### L [id number] #### [facility] CLIA [id number] [address] [place] [address] [place] HCO3 (Bld) [Moles/Vol] 18 mmol/L Low 24-28 [facility] Comment on above: Order Comment: Speci men Type: BLOOD SPECIMEN Ordering Facility: [facility] Address: [address] [place] [address] Performed By: #### L [id number] #### [facility] CLIA [id number] [address] [place] [address] [place] Hematocrit (Bld) [Volume fraction] 32.2 % Low 39.0-51.0 [facility] Comment on above: Order Comment: Speci men Type: BLOOD SPECIMEN Ordering Facility: [facility] Address: [address] [place] [address] Performed By: #### L [id number] #### [facility] CLIA [id number] [address] [place] [address] [place] Hemoglobin (Bld) [Mass/Vol] 10.4 g/dL Low 13.0-17.0 [facility] Comment on above: Order Comment: Speci men Type: BLOOD SPECIMEN Ordering Facility: [facility] Address: [address] [place] [address] Performed By: #### L [id number] #### [facility] CLIA [id number] [address] [place] [address] [place] Lactate [Moles/Vol] 1.5 mmol/L Normal 0.5-2.2 [facility] Comment on above: Order Comment: Speci men Type: BLOOD SPECIMEN Ordering Facility: [facility] Address: [address] [place] [address] Performed By: #### L [id number] #### [facility] CLIA [id number] [address] [place] [address] [place] Methemoglobin (Bld) [Mass fraction] 0.4 % Normal 0.0-1.5 [facility] Comment on above: Order Comment: Speci men Type: BLOOD SPECIMEN Ordering Facility: [facility] Address: [address] [place] [address] Performed By: #### L [id number] #### [facility] CLIA [id number] [address] [place] [address] [place] O2 THERAPY RA=Room Air Normal [facility] Comment on above: Order Comment: Speci men Type: BLOOD SPECIMEN Ordering Facility: [facility] Address: [address] [place] [address] Performed By: #### L [id number] #### [facility] CLIA [id number] [address] [place] [address] [place] Oxygen (BldV) [Partial pressure] 118 mm[Hg] High 35-45 [facility] Comment on above: Order Comment: Speci men Type: BLOOD SPECIMEN Ordering Facility: [facility] Address: [address] [place] [address] Performed By: #### L [id number] #### [facility] CLIA [id number] [address] [place] [address] [place] Oxygen saturation in Venous blood 96 % High 60-85 [facility] Comment on above: Order Comment: Speci men Type: BLOOD SPECIMEN Ordering Facility: [facility] Address: [address] [place] [address] Performed By: #### L [id number] #### [facility] CLIA [id number] [address] [place] [address] [place] Oxyhemoglobin (BldV) [Mass fraction] 95 % High 60-85 [facility] Comment on above: Order Comment: Speci men Type: BLOOD SPECIMEN Ordering Facility: [facility] Address: [address] [place], [place] [id number] Performed By: #### L [id number] #### [facility] CLIA [id number] [address] [place] [address] [place] pH (BldV) 7.42 [pH] Normal 7.32-7.42 [facility] Comment on above: Order Comment: Speci men Type: BLOOD SPECIMEN Ordering Facility: [facility] Address: [address] [place] [address] Performed By: #### L [id number] #### [facility] CLIA [id number] [address] [place] [address] [place] Potassium [Moles/Vol] 3.8 mmol/L Normal 3.5-5.0 [facility] Comment on above: Order Comment: Speci men Type: BLOOD SPECIMEN Ordering Facility: [facility] Address: [address] [place] [address] Performed By: #### L [id number] #### [facility] CLIA [id number] [address] [place] [address] [place] Sodium [Moles/Vol] 128 mmol/L Low 136-144 [facility] Comment on above: Order Comment: Speci men Type: BLOOD SPECIMEN Ordering Facility: [facility] Address: [address] [place] [address] Performed By: #### L [id number] #### [facility] CLIA [id number] [address] [place] [address] [place] HIGH SENSITIVITY TROPONIN T (INITIAL)on 05-21-2025 Troponin T.cardiac High sensitivity method [Mass/Vol] 217 ng/L High <12 [facility] Comment on above: Order Comment: Speci men Type: BLOOD SPECIMEN Ordering Facility: [facility] Address: [address] [place] [address] Performed By: #### L [id number] #### [facility] CLIA [id number] [address] [place] [address] [place] HIGH SENSITIVITY TROPONIN T (SECOND)on 05-21-2025 Troponin T.cardiac High sensitivity method [Mass/Vol] 213 ng/L High <12 [facility] Comment on above: Order Comment: Speci men Type: BLOOD SPECIMEN Ordering Facility: [facility] Address: [address] [place] [address] Performed By: #### L [id number] #### [facility] CLIA [id number] [address] [place] [address] [place] HIGH SENSITIVITY TROPONIN T (THIRD) 3 HRS AFTER INITIALon 05-21-2025 Troponin T.cardiac High sensitivity method [Mass/Vol] 211 ng/L High <12 [facility] Comment on above: Order Comment: Vandana aguero Type: BLOOD SPECIMEN Ordering Facility: [facility] Address: [address] [place] [address] Performed By: #### L [id number] #### [facility] CLIA [id number] [address] [place] [address] [place] NT-proBNP [facility] Natriuretic peptide.B prohormone N-Terminal [Mass/Vol] >84413 High <450 [facility] Comment on above: Order Comment: Vandana aguero Type: BLOOD SPECIMEN Ordering Facility: [facility] Address: [address] [place] [address] Performed By: #### L [id number] #### [facility] CLIA [id number] [address] [place] [address] [place] PT panel Coag (PPP)on 2024 INR Coag (PPP) [Relative time] 1.2 {INR} Normal 0.9-1.3 [facility] Comment on above: Order Comment: Vandana aguero Type: BLOOD SPECIMEN Ordering Facility: [facility] Address: [address] [place] [address] Result Comment: Velvet min K Antagonist (VKA) Therapeutic Range: INR 2 to 3 (Target INR of 2.5) Note: For patients treated with VKA drugs, such as warfarin, the [place] [employer] 2012 Guideline recommends a therapeutic INR range of 2 to 3 (target INR of 2.5). This recommendation includes high-risk patients with antiphospholipid syndrome with previous arterial or venous thromboembolism, current-generation mechanical or bioprosthetic aortic heart valve replacement. Note: Patients with mechanical aortic valve replacement and additional risk factors for thromboembolic events (atrial fibrillation, previous thromboembolism, LV dysfunction, hypercoagulable conditions) or an older generation mechanical AVR (i.e., ball in-Cage) or any mechanical MVR should have a INR therapeutic range of 2.5 to 3.5 (target INR of 3). Eddiett GH, et al. Chest 2012, 141:7S-47S Melinda RA, et al. [facility] 2017, 70: 252-289 Performed By: #### L [id number] #### [facility] CLIA [id number] [address] [place] [address] [place] PT Coag (PPP) [Time] 13.5 s High 9.4-12.5 [facility] Comment on above: Order Comment: Speci men Type: BLOOD SPECIMEN Ordering Facility: [facility] Address: [address] [place] [address] Performed By: #### L [id number] #### [facility] CLIA [id number] [address] [place] [address] OF [facility] XR CHEST 1V FRONTAL PORTon 1 XR CHEST 1V FRONTAL PORT * * *Final Report* * * DATE OF EXAM: May 21 2025 4:47PM UDX [id number] - XR CHEST 1V FRONTAL PORT / PROCEDURE REASON: Shortness of breath * * * * Physician Interpretation * * * * EXAMINATION: CHEST RADIOGRAPH (PORTABLE SINGLE VIEW AP) Exam Date/Time: 05/21/2025 4:47 PM CLINICAL HISTORY: Shortness of breath MQ: XCPR_5 Comparison: 01/14/2025 RESULT: Lines, tubes, and devices: An ICD is noted with leads projecting the region of the right atrium, right ventricle and coronary sinus. Lungs and pleura: No consolidation. No lung mass. No pleural effusion. Cardiomediastinal silhouette: Stable cardiomediastinal silhouette. Status post median sternotomy. IMPRESSION: No acute radiographic abnormality. Director Game: PSCB Transcribe Date/Time: May 21 2025 5:11P Dictated by : ALEX CHANDRA MD This examination was interpreted and the report reviewed and electronically signed by: ALEX CHANDRA MD on May 21 2025 5:15PM EST [id number] Normal [facility] aPTT PPPon 05-21-2025 aPTT Coag (PPP) [Time] 30.8 s Normal 25.1-36.5 [facility] Comment on above: Order Comment: Speci men Type: BLOOD SPECIMEN Ordering Facility: [facility] Address: [address] [place] [address] Result Comment: [facility] Heparin Therapeutic Range: 54-90 seconds Performed By: #### L [id number] #### [facility] CLIA [id number] [address] [place] [address] [place] CNPNon 05-04-2025 CNPN Normal [facility] CNPNon 04-24-2025 CNPN Normal [facility] CNOVon 04-06-2025 CNOV Normal [facility] CNOVon 03-13-2025 CNOV Office Visit (PULMDOVNEW) PETE CONLEY ([id number]) 1950 M Date Time Provider Department 03/13/25 2:45 PM CRYSTAL BAUER PULOVNEVidal During your visit today, we recorded the following information about you: Pulse Blood pressure Weight 87/minute 122/71 109.3 kg Crystal Bauer DO 03/13/2025 2:53 PM Signed [facility] Department of Pulmonary AND Sleep Medicine Crystal Bauer DO Pulmonary Progress Note REFERRING PROVIDER: Hector Fox PA-C Edward E Hershberger is a 74 year old male who is returning for follow up evaluation of COPD and MACY on CPAP. History of Illness Since Last Visit: Patient is here for a follow up. Continues on CPAP nightly and benefits with use. Continues on nocturnal oxygen set at 1.5L bled into his CPAP. Denies any trouble getting his supplies. He had a triple bypass, pace maker with defibulator and valve repair in December. He feels his breathing is improving since the surgery. He is on peritoneal dialysis nightly. He has albuterol nebulizer solution but does not need this. I, CHELSEY Tejeda, transcribing for Crystal Bauer DO. HISTORY PAST MEDICAL HISTORY Diagnosis Date Acute and chronic respiratory failure with hypoxia ([facility]) Bilateral carotid artery stenosis 10/26/2023 Right internal carotid artery: 60-79% stenosis. Left: 20-39% stenosis. Monitored by Vascular Surgeon Dr. Domingo Monsalve. 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 Dolores Welsh COPD (chronic obstructive pulmonary disease) ([facility]) Lead Portfolio Manager Dr. Crystal Bauer Diabetes mellitus type 2 ([facility]) History of 2019 novel coronavirus disease (COVID-19) 09/08/2021 History of cardiac cath 10/30/2023 LAD: Mid LAD is narrowed 60% (DFR 0.79% - hemodynamically significant stenosis). Mid LCx is narrowed 80%. Mid RCA is narrowed 80%. Stent was not placed. CABG indicated. Pt declined CABG due to poor surgical candidate related to many comobidities. Patient elects medical therapy. History of cardiac monitoring 10/02/2023 Patient wore event monitor secondary to palpitations and syncope and collapse. Underlying sinus rhythm was appreciated with excellent heart rate variability. Heart rate ranging 50-120, average heart rate 70. Very rare PVC's are isolated no sustained evidence of atrial fibrillation or ventricular tachycardia. Patient is on Coreg 6.25 mg BID. Symptoms have no relationship to any arrhythmias. History of cardiovascular stress test 10/10/2021 -Impression: Enlarging dilated LV and the setting of global hypokinesis. Calculated EF 39%. This may represent the sequela of chronic hypertension or other cardiomyopathy. No images evidence of stress-induced myocardial ischemia. History of echocardiogram 03/18/2021 Echocardiogram demonstrates a suboptimal study. EF 50 to 55%. Moderate concentric LVH. Class I diastolic dysfunction. Left atrium is mildly dilated. Mild a S. Mild to moderate MR. Mild TR. Borderline to mild PHT. History of echocardiogram 10/04/2022 EF 45-50%. Left ventricle cavity size is normal. Wall thickness is normal. Systolic funciton is mildly reduced. Hypokinesis of the anterolateral myocardium. Hypokinesis of the inferioir myocardium Grade 2 diastolic dysfunction. Mitral valve the annulus is mildly calcified. The leaflets are moderately thickened. Thickening. Severe regurgitation. Left atrium is mildly dilated. History of echocardiogram 12/22/2022 EF 50% demonstrates concentric left ventricular hypertrophy. Slight hypokinesis of distal septal wall. Mild to moderate MR. Mild TR. Aortic valve is sclerotic, thickened, but the valve area is noted to be normal. History of echocardiogram w/ Bubble Study 09/24/2023 EF 30-35%, LV- moderately enlarged. LA-moderately enlarged. RA-moderately enlarged. Moderate to severe MV regurgitation. Moderate TV regurgitation. Moderate pulmonary hypertension. History of echocardiography 10/07/2021 -Echocardiogram demonstrates of the difficult study with minimal information obtainable. LV is dilated with an EF at 45 to 50%. Diastolic function is indeterminate. Aortic valve is poorly visualized but no evidence for aortic stenosis by Doppler analysis. Moderate mitral annular calcification without hemodynamically significant MS. Mild MR. History of smoking History of transesophageal echocardiography (MILA) 10/30/2023 EF 30-35%. Moderately severe MR with PISA of 0.29 cm?. Mild TR. HTN (hypertension) Obstructive sleep apnea on CPAP Peritoneal dialysis status 6-days per week, does not do on Sunday. Severe protein-calorie malnutrition (HCC) 12/28/2024 PAST SURGICAL HISTORY Procedure Laterality Date PAST SURGICAL HISTORY OF Right TMA TONSILLECTOMY HX Social History Tobacco Use Smoking status: (more content not included)... [facility] 03-09-[address] [facility] 02-12-[address] [facility] 02-03-2025 [facility] Telephone (NIEVES Drake) PETE CONLEY ([id number]) 1950 Date Time Provider Department 02/03/25 CRYSTAL BAUER During your visit today, we recorded the following information about you: Michael NancyCHELSEY 02/03/2025 12:24 PM Signed Allie from patients [facility] called wanting to verify patient's CPAP order and if the patient has oxygen bled into his machine. I did find the patient was on APAP 5-20 through [facility] but could not verify if oxygen was bled in. I advised I would contact [facility] and get a compliance to look at current settings and discuss the oxygen being bled into the machine with them. Please call Allie back at [phone] And fax any orders to them at [phone] Attempted to call [facility] but there was nobody available. Left a message asking for a return call. Rodriguez, NancyCHELSEY 02/03/2025 4:30 PM Signed Spoke to [place] at [facility] and verified patient is APAP 5-20 with oxygen bled in he will send the orders that they have for us to review and send to ECF for them to have on file. Allergies As of Date: 02/03/2025 Noted Allergy Reaction AMLODIPINE 04/29/2021 7 - Swelling ASPIRIN 04/05/2020 14 - Other: See Comments Comments: tacchycardia CLAMS 08/27/2024 16 - Unknown METFORMIN 08/27/2024 5 - Intolerance VICTOZA (LIRAGLUTIDE) 2021 14 - Other: See Comments Date Reviewed: 01/21/2025 Reviewed by: Faisal Hong, DENIA - Fully Assessed Prescriptions as of 02/03/2025 - atorvastatin (LIPITOR) 80 mg tablet Take 1 tablet by mouth daily at bedtime. - clopidogrel (PLAVIX) 75 mg tablet Take 1 tablet by mouth every morning. - tamsulosin (FLOMAX) 0.4 mg Take 1 capsule by mouth once daily. - acetaminophen (TYLENOL) 325 mg tablet Take 2 tablets by mouth every 4 hours as needed for pain. - albuterol (PROVENTIL) 2.5 mg /3 mL (0.083 %) nebulizer solution Use 3 mL via nebulizer every 4 hours as needed for wheezing/shortness of breath. - aluminum-magnesium hydroxide-simethicone 200-200-20 mg/5 mL suspension Take 30 mL by mouth every 4 hours as needed (Second Line Therapy). - benzocaine-menthol (CHLORASEPTIC) 6-10 mg lozenges Take 1 lozenge by mouth every 2 hours as needed. - calcium carbonate (TUMS) 500 mg chew Take 1-2 tablets by mouth three times a day as needed (GI Upset - First Line Therapy). - dextrose (TRUEPLUS) 15 gram/32 mL oral gel Take 32 mL by mouth as needed. - diclofenac (VOLTAREN) 1 % topical gel Apply 2 g to affected area four times daily. - gentamicin 0.1% 0.1 % cream Apply to affected area once daily. - lidocaine (SALONPAS) 4 % patch Apply 1 patch as directed once daily. - magnesium hydroxide (MOM) 400 mg/5 mL suspension Take 30 mL by mouth every 6 hours as needed. - melatonin 1 mg tablet Take 1 tablet by mouth at bedtime as needed for insomnia. - midodrine (PROAMATINE) 2.5 mg tablet Take 1 tablet by mouth every 8 hours. - MULTIVITAMIN-FERROUS FUMARATE-FOLIC ACID 18 MG-400 MCG TABLET Take 1 tablet by mouth daily with breakfast. - senna-docusate (SENNA-S) 8.6-50 mg per tablet Take 2 tablets by mouth two times a day. - zinc oxide (DESITIN) 13 % cream Apply to affected area as needed. - insulin glargine 100 unit/mL (3 mL) Inject 34 Units subcutaneously once daily. daily at 12 pm - insulin lispro 100 unit/mL injection daily at 3 am - aspirin 81 mg chewable tablet Take 1 tablet by mouth once daily. - B Complex-Vitamin C-Folic Acid (LENA-VIT) 0.8 mg tab Take 1 tablet by mouth once daily. - pantoprazole DR (PROTONIX) 20 mg tablet Take 1 tablet by mouth daily at 6 am. - polyethylene glycol 3350 17 gram packet Take 1 packet by mouth once daily. Dissolve dose in 4 - 8 ounces of liquid and take as directed. - insulin lispro (HUMALOG KWIKPEN INSULIN) 100 unit/mL Inject 4 units with breakfast, 3 units with lunch, 2 units with dinner plus sliding scale If Blood Glucose (mg/dL) is <110 Give 0 units 111-150 Give 1 units 151-200 Give 3 unit 201-250 Give 6 units 251-300 Give 9 units 301-350 Give 12 units 351-400 Give 15 units >400 Give 15 units and Call physician. - insulin regular human 100 unit/mL injection Inject 12 Units subcutaneously once daily. daily at 10 pm at start of PD - hold if PD not initiated - insulin lispro 100 unit/mL injection Inject 0-15 Units subcutaneously daily at bedtime. - CPAP 1 Each by Mask route daily at bedtime. [employer] - OXYGEN, HOME THERAPY, Inhale 1.5 L/min as instructed as needed for wheezing/shortness of breath. Problem List As Of Date 02/03/2025 Noted Resolved Bilateral lower extremity edema [R60.0] 2021 Former smoker [Z87.891] 2021 Hypertension [I10] 02/16/2021 SOB (shortness of breath) on exertion [R06.02] 04/29/2021 Postinflammatory pulmonary fibrosis (HCC) [J84.*04/29/2021 MACY (obstructive sleep apnea) [G47.33] 04/29/2021 History of echocardiogram [Z92.89] (more content not included)... Normal [facility] CASE MANAGEMon 01-21-2025 CASE MANAGEM Normal [facility] CBC panel Auto (Bld)on 01-21 Erythrocyte distribution width (RBC) [Ratio] 14.4 % Normal 11.5-15.0 [facility] Comment on above: Order Comment: Speci men Type: BLOOD SPECIMENOrdering Facility: [facility] Address: [address] [place] [address] Performed By: #### 1 6933-4, 48224-4, 5195-3, 39273-8 ####[facility] LABIA [id number] [place] [address] [place] Hematocrit (Bld) [Volume fraction] 29.0 % Low 39.0-51.0 [facility] Comment on above: Order Comment: Speci men Type: BLOOD SPECIMENOrdering Facility: [facility] Address: [address] [place] [address] Performed By: #### 1 6933-4, 57553-1, 5195-3, 97422-9 ####[facility] LABCLIA [id number] [place] [id number] [place] Hemoglobin (Bld) [Mass/Vol] 9.2 g/dL Low 13.0-17.0 [facility] Comment on above: Order Comment: Speci men Type: BLOOD SPECIMENOrdering Facility: [facility] Address: [address] [place] [address] Performed By: #### 1 6933-4, 50669-4, 5195-3, 37613-6 ####[facility] [id number] [place] [id number] [place] MCH (RBC) [Entitic mass] 31.4 pg Normal 26.0-34.0 [facility] Comment on above: Order Comment: Speci men Type: BLOOD SPECIMENOrdering Facility: [facility] Address: [address] [place] [address] Performed By: #### 1 6933-4, 51601-4, 5194-3, 01467-6 ####[facility] [id number] [place] [address] [place] MCHC (RBC) [Mass/Vol] 31.7 g/dL Normal 30.5-36.0 [facility] Comment on above: Order Comment: Speci men Type: BLOOD SPECIMENOrdering Facility: [facility] Address: [address] [place] [address] Performed By: #### 1 6933-4, 66190-1, 5195-3, 82382-1 ####[facility] [id number] [place] [id number] [place] MCV (RBC) [Entitic vol] 99.0 fL Normal 80.0-100.0 [facility] Comment on above: Order Comment: Speci men Type: BLOOD SPECIMENOrdering Facility: [facility] Address: [address] [place] [address] Performed By: #### 1 6933-4, 84809-9, 5195-3, 51987-4 ####[facility] LABCLIA [id number] [address] [address] [place] Nucleated RBC (Bld) [#/Vol] 10*3/uL Normal <0.01 [facility] Comment on above: Order Comment: Speci men Type: BLOOD SPECIMENOrdering Facility: [facility] Address: [address] [place] [address] Performed By: #### 1 6933-4, 65054-0, 5195-3, 01630-5 ####[facility]IA [id number] [address] [address] [place] Platelet mean volume (Bld) [Entitic vol] 10.5 fL Normal 9.0-12.7 [facility] Comment on above: Order Comment: Speci men Type: BLOOD SPECIMENOrdering Facility: [facility] Address: [address] [place] [address] Performed By: #### 1 6933-4, 44220-4, 5195-3, 79074-2 ####[facility]IA [id number] [place] [id number] [place] Platelets (Bld) [#/Vol] 228 10*3/uL Normal 150-400 [facility] Comment on above: Order Comment: Speci men Type: BLOOD SPECIMENOrdering Facility: [facility] Address: [address] [place] [address] Performed By: #### 1 6933-4, 71177-3, 5195-3, 55579-2 ####[facility]IA [id number] [address] [address] [place] RBC (Bld) [#/Vol] 2.93 10*6/uL Low 4.20-6.[address] [facility] Comment on above: Order Comment: Speci men Type: BLOOD SPECIMENOrdering Facility: [facility] Address: [address] [place] [address] Performed By: #### 1 6933-4, 36823-7, 5195-3, 93484-3 ####[facility] LABCLIA [id number] [address] [address] [place] WBC (Bld) [#/Vol] 7.03 10*3/uL Normal 3.70-11.[address] [facility] Comment on above: Order Comment: Speci men Type: BLOOD SPECIMENOrdering Facility: [facility] Address: [address] [place] [address] Performed By: #### 1 6933-4, 39419-2, 5195-3, 54943-8 ####[facility] LABCLIA [id number] [place] [address] [place] CNPNon 01-21-2025 CNPN Normal [facility] CONSULT PROGon 01-21-2025 CONSULT PROG Normal [facility] CONSULT PROG Normal [facility] Comprehensive metabolic 2000 panelon 01-21-2025 Albumin [Mass/Vol] 3.3 g/dL Low 3.9-4.9 [facility] Comment on above: Order Comment: Speci men Type: BLOOD SPECIMENOrdering Facility: [facility] Address: [address] [place] [address] Performed By: #### 2 777-1, 77217-5 ####[facility] LABCLIA [id number] [place] [id number] [place] ALP [Catalytic activity/Vol] 156 U/L High 38-113 [facility] Comment on above: Order Comment: Speci men Type: BLOOD SPECIMENOrdering Facility: [facility] Address: [address] [place] [address] Performed By: #### 2 777-1, 96962-4 ####[facility] LABCLIA [id number] [address] [address] [place] ALT [Catalytic activity/Vol] 6 U/L Low 10-54 [facility] Comment on above: Order Comment: Speci men Type: BLOOD SPECIMENOrdering Facility: [facility] Address: [address] [place], [place] [address] Performed By: #### 2 777-1, 97654-7 ####[facility] LABCLIA [id number] [address] [place] [address] [place] Anion gap [Moles/Vol] 16 mmol/L High 8-15 [facility] Comment on above: Order Comment: Speci men Type: BLOOD SPECIMENOrdering Facility: [facility] Address: [address] [place], [place] [address] Performed By: #### 2 777-1, 51074-9 ####[facility] LABCLIA [id number] [address] [place] [address] [place] AST [Catalytic activity/Vol] 23 U/L Normal 14-40 [facility] Comment on above: Order Comment: Speci men Type: BLOOD SPECIMENOrdering Facility: [facility] Address: [address] [place], [place] [address] Performed By: #### 2 777-1, 32010-6 ####[facility] LABCLIA [id number] [address] [address] [place] Bilirubin [Mass/Vol] 0.4 mg/dL Normal 0.2-1.3 [facility] Comment on above: Order Comment: Speci men Type: BLOOD SPECIMENOrdering Facility: [facility] Address: [address] [place], [place] [address] Performed By: #### 2 777-1, 05921-9 ####[facility] LABCLIA [id number] [address] [address] [place] Calcium [Mass/Vol] 8.9 mg/dL Normal 8.5-10.2 [facility] Comment on above: Order Comment: Speci men Type: BLOOD SPECIMENOrdering Facility: [facility] Address: [address] [place], [place] [address] Performed By: #### 2 777-1, 06245-2 ####[facility] LABCLIA [id number] [address] [address] [place] Chloride [Moles/Vol] 95 mmol/L Low 98-107 [facility] Comment on above: Order Comment: Speci men Type: BLOOD SPECIMENOrdering Facility: [facility] Address: [address] [place] [address] Performed By: #### 2 777-1, 31675-0 ####[facility] LABCLIA [id number] [place] [id number] [place] CO2 [Moles/Vol] 26 mmol/L Normal 22-30 [facility] Comment on above: Order Comment: Speci men Type: BLOOD SPECIMENOrdering Facility: [facility] Address: [address] [place] [address] Performed By: #### 2 777-1, 29787-6 ####[facility] LABCLIA [id number] [address] [address] [place] Creatinine [Mass/Vol] 7.05 mg/dL High 0.73-1.22 [facility] Comment on above: Order Comment: Speci men Type: BLOOD SPECIMENOrdering Facility: [facility] Address: [address] [place] [address] Performed By: #### 2 777-1, 82557-8 ####[facility] LABIA [id number] [address] [address] [place] Creatinine and Glomerular filtration rate.predicted panel (S/P/Bld) 7 mL/min/1.73m??? Low >=60 [facility] Comment on above: Order Comment: Speci men Type: BLOOD SPECIMENOrdering Facility: [facility] Address: [address] [place] [address] Result Comment: Maggy mated Glomerular Filtration Rate (eGFR) is calculated using the 2020 CKD-EPI creatinine equation. This equation utilizes serum creatinine, sex, and age as parameters. The creatinine assay has traceable calibration to isotope dilution-mass spectrometry. Refer to KDIGO guidelines for clinical interpretation. In patients with unstable renal function, e.g. those with acute kidney injury, the eGFR may not accurately reflect actual GFR. Performed By: #### 2 777-1, ####[facility] LABCLIA [id number] [address] [address] [place] Glucose [Mass/Vol] 76 mg/dL Normal 74-99 [facility] Comment on above: Order Comment: Speci men Type: BLOOD SPECIMENOrdering Facility: [facility] Address: [address] [place] [address] Result Comment: The [place] [employer] (ADA) provides guidance for cutoff values for fasting glucose and random glucose. The ADA defines fasting as no caloric intake for at least 8 hours. Fasting plasma glucose results between 100 to 125 mg/dL indicate increased risk for diabetes (prediabetes).Fasting plasma glucose results greater than or equal to 126 mg/dL meet the criteria for diagnosis of diabetes. In the absence of unequivocal hyperglycemia, results should be confirmed by repeat testing. In a patient with classic symptoms of hyperglycemia or hyperglycemic crisis, random plasma glucose results greater than or equal to 200 mg/dL meet the criteria for diagnosis of diabetes.Reference: Standards of Medical Care in Diabetes 2016, [place] [employer]. Diabetes Care. 2016.39(Suppl 1). Performed By: #### 2 777-, ####[facility] LABCLIA [id number] [address] [address] [place] Potassium [Moles/Vol] 3.8 mmol/L Normal 3.7-5.1 [facility] Comment on above: Order Comment: Vandana aguero Type: BLOOD SPECIMENOrdering Facility: [facility] Address: [address] [place] [address] Performed By: #### 2 777-1, ####[facility] LABCLIA [id number] [address] [address] [place] Protein [Mass/Vol] 6.4 g/dL Normal 6.3-8.0 [facility] Comment on above: Order Comment: Speci men Type: BLOOD SPECIMENOrdering Facility: [facility] Address: [address] [place] [address] Performed By: #### 2 777-1, 13495-5 ####[facility] LABCLIA [id number] [place] [address] [place] Sodium [Moles/Vol] 137 mmol/L Normal 136-144 [facility] Comment on above: Order Comment: Speci men Type: BLOOD SPECIMENOrdering Facility: [facility] Address: [address] [place] [address] Performed By: #### 2 777-1, 09825-5 ####[facility] LABCLIA [id number] [place] [address] [place] Urea nitrogen [Mass/Vol] 88 mg/dL High 9-24 [facility] Comment on above: Order Comment: Speci men Type: BLOOD SPECIMENOrdering Facility: [facility] Address: [address] [place] [address] Performed By: #### 2 777-1, 93670-2 ####[facility] LABCLIA [id number] [place] [address] [place] HBV core Ab Ser Qlon 025 HBV core Ab Ql (S) Negative Normal Negative [facility] Comment on above: Order Comment: Speci men Type: BLOOD SPECIMENOrdering Facility: [facility] Address: [address] [place] [address] Result Comment: No e vidence of current or past infection with Hepatitis B virus. Should recent infection be suspected, repeat testing may be considered 3-4 weeks after this draw. Performed By: #### 1 6933-4, 23704-6, 5195-3, 69537-6 ####[facility] LABCLIA [id number] [place] [id number] [place] HBV surface Ab Ql (S)on HBV surface Ab Qn (S) <8.00 Normal [facility] Comment on above: Order Comment: Speci men Type: BLOOD SPECIMENOrdering Facility: [facility] Address: [address] [place] [address] Result Comment: <8 m IU/mL: No serological evidence of immunity to Hepatitis B Virus.>/= 8 to <12 mIU/mL: No serological evidence of immunity to Hepatitis B Virus.>/= 12 mIU/mL: Consistent with serological evidence of immunity to Hepatitis B Virus. Performed By: #### 1 6933-4, 42915-3, 5-3, 98690-2 ####[facility] LABCLIA [id number] [place] [address] [place] HBV surface Ab Ser Qlon HBV surface Ab Ql (S) Negative Normal [facility] Comment on above: Order Comment: Speci men Type: BLOOD SPECIMENOrdering Facility: [facility] Address: [address] [place] [address] Result Comment: No s erological evidence of immunity to Hepatitis B Virus. Performed By: #### 1 6933-4, 76549-2, 5-3, 62808-9 ####[facility] LABCLIA [id number] [place] [address] [place] HBV surface Ag Ser Qlon HBV surface Ag Ql (S) Negative Normal Negative [facility] Comment on above: Order Comment: Speci men Type: BLOOD SPECIMENOrdering Facility: [facility] Address: [address] [place] [address] Performed By: #### 1 6933-4, 58346-9, 5-3, 28890-9 ####[facility] LABCLIA [id number] [place] [address] [place] NUTRITIONon 01-21-2025 NUTRITION Normal [facility] Phosphate SerPl-mCncon 01-21 Phosphate [Mass/Vol] 4.6 mg/dL Normal 2.7-4.8 [facility] Comment on above: Order Comment: Speci men Type: BLOOD SPECIMENOrdering Facility: [facility] Address: [address] [place] [address] Performed By: #### 2 777-1, 84099-1 ####[facility] LABIA [id number] [place] [address] [place] CASE MANAGEMon 01-20-2025 CASE MANAGEM Normal [facility] CASE MANAGEM Normal [facility] CBC panel Auto (Bld)on 01-20 Erythrocyte distribution width (RBC) [Ratio] 14.6 % Normal 11.5-15.0 [facility] Comment on above: Order Comment: Speci men Type: BLOOD SPECIMENOrdering Facility: [facility] Address: [address] [place] [address] Performed By: #### 5 8410-2 ####[facility] LABCLIA [id number] [place] [address] [place] Hematocrit (Bld) [Volume fraction] 29.3 % Low 39.0-51.0 [facility] Comment on above: Order Comment: Speci men Type: BLOOD SPECIMENOrdering Facility: [facility] Address: [address] [place] [address] Performed By: #### 5 8410-2 ####[facility] LABCLIA [id number] [place] [id number] [place] Hemoglobin (Bld) [Mass/Vol] 9.3 g/dL Low 13.0-17.0 [facility] Comment on above: Order Comment: Speci men Type: BLOOD SPECIMENOrdering Facility: [facility] Address: [address] [place] [address] Performed By: #### 5 8410-2 ####[facility] LABCLIA [id number] [address] [place] MCH (RBC) [Entitic mass] 31.3 pg Normal 26.0-34.0 [facility] Comment on above: Order Comment: Speci men Type: BLOOD SPECIMENOrdering Facility: [facility] Address: [address] [place] [address] Performed By: #### 5 8410-2 ####[facility] LABIA [id number] [place] [address] [place] MCHC (RBC) [Mass/Vol] 31.7 g/dL Normal 30.5-36.0 [facility] Comment on above: Order Comment: Speci men Type: BLOOD SPECIMENOrdering Facility: [facility] Address: [address] [place] [address] Performed By: #### 5 8410-2 ####[facility] LABCLIA [id number] [place] [address] [place] MCV (RBC) [Entitic vol] 98.7 fL Normal 80.0-100.0 [facility] Comment on above: Order Comment: Speci men Type: BLOOD SPECIMENOrdering Facility: [facility] Address: [address] [place] [address] Performed By: #### 5 8410-2 ####[facility] LABIA [id number] [place] [address] [place] Nucleated RBC (Bld) [#/Vol] 10*3/uL Normal <0.01 [facility] Comment on above: Order Comment: Speci men Type: BLOOD SPECIMENOrdering Facility: [facility] Address: [address] [place] [address] Performed By: #### 5 8410-2 ####[facility] LABCLIA [id number] [place] [address] [place] Platelet mean volume (Bld) [Entitic vol] 10.7 fL Normal 9.0-12.7 [facility] Comment on above: Order Comment: Speci men Type: BLOOD SPECIMENOrdering Facility: [facility] Address: [address] [place] [address] Performed By: #### 5 8410-2 ####[facility] LABCLIA [id number] [place] [address] [place] Platelets (Bld) [#/Vol] 211 10*3/uL Normal 150-400 [facility] Comment on above: Order Comment: Speci men Type: BLOOD SPECIMENOrdering Facility: [facility] Address: [address] [place] [address] Performed By: #### 5 8410-2 ####[facility] LABIA [id number] [place] [address] [place] RBC (Bld) [#/Vol] 2.97 10*6/uL Low 4.20-6.[address] [facility] Comment on above: Order Comment: Speci men Type: BLOOD SPECIMENOrdering Facility: [facility] Address: [address] [place] [address] Performed By: #### 5 8410-2 ####[facility] LABIA [id number] [place] [address] [place] WBC (Bld) [#/Vol] 7.01 10*3/uL Normal 3.70-11.[address] [facility] Comment on above: Order Comment: Speci men Type: BLOOD SPECIMENOrdering Facility: [facility] Address: [address] [place] [address] Performed By: #### 5 8410-2 ####[facility] LABIA [id number] [place] [id number] [place] CONSULT PROGon 01-20-2025 CONSULT PROG Normal [facility] CONSULT PROG Normal [facility] Comprehensive metabolic 2000 panelon 01-20-2025 Albumin [Mass/Vol] 3.3 g/dL Low 3.9-4.9 [facility] Comment on above: Order Comment: Speci men Type: BLOOD SPECIMENOrdering Facility: [facility] Address: [address] [place], [place] [address] Performed By: #### 2 777-1, 30217-7 ####[facility] LABCLIA [id number] [address] [place] [address] [place] ALP [Catalytic activity/Vol] 157 U/L High 38-113 [facility] Comment on above: Order Comment: Speci men Type: BLOOD SPECIMENOrdering Facility: [facility] Address: [address] [place], [place] [address] Performed By: #### 2 777-1, 76830-2 ####[facility] LABCLIA [id number] [place] [id number] [place] ALT [Catalytic activity/Vol] 6 U/L Low 10-54 [facility] Comment on above: Order Comment: Speci men Type: BLOOD SPECIMENOrdering Facility: [facility] Address: [address] [place], [place] [address] Performed By: #### 2 777-1, 58703-7 ####[facility] LABCLIA [id number] [place] [id number] [place] Anion gap [Moles/Vol] 19 mmol/L High 8-15 [facility] Comment on above: Order Comment: Speci men Type: BLOOD SPECIMENOrdering Facility: [facility] Address: [address] [place], [place] [address] Performed By: #### 2 777-1, 00990-1 ####[facility] LABCLIA [id number] [place] [id number] [place] AST [Catalytic activity/Vol] 21 U/L Normal 14-40 [facility] Comment on above: Order Comment: Speci men Type: BLOOD SPECIMENOrdering Facility: [facility] Address: [address] [place], [place] [address] Performed By: #### 2 777-1, 92478-1 ####[facility] LABCLIA [id number] [facility] [address] [place] [address] [place] Bilirubin [Mass/Vol] 0.4 mg/dL Normal 0.2-1.3 [facility] Comment on above: Order Comment: Speci men Type: BLOOD SPECIMENOrdering Facility: [facility] Address: [address] [place] [address] Performed By: #### 2 777-1, 49057-0 ####[facility] LABCLIA [id number] [address] [place] [address] [place] Calcium [Mass/Vol] 8.8 mg/dL Normal 8.5-10.2 [facility] Comment on above: Order Comment: Speci men Type: BLOOD SPECIMENOrdering Facility: [facility] Address: [address] [place] [address] Performed By: #### 2 777-1, 52906-6 ####[facility] LABCLIA [id number] [address] [place] [address] [place] Chloride [Moles/Vol] 94 mmol/L Low 98-107 [facility] Comment on above: Order Comment: Speci men Type: BLOOD SPECIMENOrdering Facility: [facility] Address: [address] [place], [place] [address] Performed By: #### 2 777-1, 44875-8 ####[facility] LABCLIA [id number] [facility] [address] [place] [address] [place] CO2 [Moles/Vol] 25 mmol/L Normal 22-30 [facility] Comment on above: Order Comment: Speci men Type: BLOOD SPECIMENOrdering Facility: [facility] Address: [address] [place], [place] [address] Performed By: #### 2 777-1, 12004-8 ####[facility] LABCLIA [id number] [address] [place] [address] [place] Creatinine [Mass/Vol] 7.27 mg/dL High 0.73-1.22 [facility] Comment on above: Order Comment: Vandana aguero Type: BLOOD SPECIMENOrdering Facility: [facility] Address: [address] [place] [address] Performed By: #### 2 777-1, 46680-5 ####[facility] LABIA [id number] [place] [address] [place] Creatinine and Glomerular filtration rate.predicted panel (S/P/Bld) 7 mL/min/1.73m??? Low >=60 [facility] Comment on above: Order Comment: Vandana aguero Type: BLOOD SPECIMENOrdering Facility: [facility] Address: [address] [place] [address] Result Comment: Maggy mated Glomerular Filtration Rate (eGFR) is calculated using the 2020 CKD-EPI creatinine equation. This equation utilizes serum creatinine, sex, and age as parameters. The creatinine assay has traceable calibration to isotope dilution-mass spectrometry. Refer to KDIGO guidelines for clinical interpretation. In patients with unstable renal function, e.g. those with acute kidney injury, the eGFR may not accurately reflect actual GFR. Performed By: #### 2 777-1, 46406-9 ####[facility] LABIA [id number] [place] [id number] [place] Glucose [Mass/Vol] 154 mg/dL High 74-99 [facility] Comment on above: Order Comment: Vandana aguero Type: BLOOD SPECIMENOrdering Facility: [facility] Address: [address] [place] [address] Result Comment: The [place] Diabetes [employer] (ADA) provides guidance for cutoff values for fasting glucose and random glucose. The ADA defines fasting as no caloric intake for at least 8 hours. Fasting plasma glucose results between 100 to 125 mg/dL indicate increased risk for diabetes (prediabetes).Fasting plasma glucose results greater than or equal to 126 mg/dL meet the criteria for diagnosis of diabetes. In the absence of unequivocal hyperglycemia, results should be confirmed by repeat testing. In a patient with classic symptoms of hyperglycemia or hyperglycemic crisis, random plasma glucose results greater than or equal to 200 mg/dL meet the criteria for diagnosis of diabetes.Reference: Standards of Medical Care in Diabetes 2016, [place] [employer]. Diabetes Care. 2016.39(Suppl 1). Performed By: #### 2 777-1, 38632-4 ####[facility] LABCLIA [id number] [address] [address] [place] Potassium [Moles/Vol] 3.7 mmol/L Normal 3.7-5.1 [facility] Comment on above: Order Comment: Speci men Type: BLOOD SPECIMENOrdering Facility: [facility] Address: [address] [place], [place] [address] Performed By: #### 2 777-1, 21346-4 ####[facility] LABCLIA [id number] [address] [address] [place] Protein [Mass/Vol] 6.4 g/dL Normal 6.3-8.0 [facility] Comment on above: Order Comment: Speci men Type: BLOOD SPECIMENOrdering Facility: [facility] Address: [address] [place] [address] Performed By: #### 2 777-, 10069-0 ####[facility] LABIA [id number] [address] [address] [place] Sodium [Moles/Vol] 138 mmol/L Normal 136-144 [facility] Comment on above: Order Comment: Speci men Type: BLOOD SPECIMENOrdering Facility: [facility] Address: [address] [place] [address] Performed By: #### 2 777-1, 19377-2 ####[facility] LABCLIA [id number] [address] [address] [place] Urea nitrogen [Mass/Vol] 93 mg/dL High 9-24 [facility] Comment on above: Order Comment: Speci men Type: BLOOD SPECIMENOrdering Facility: [facility] Address: [address] [place] [address] Performed By: #### 2 777-1, 73769-9 ####[facility] LABCLIA [id number] [place] [address] [place] Phosphate SerPl-mCncon 01-20 Phosphate [Mass/Vol] 4.6 mg/dL Normal 2.7-4.8 [facility] Comment on above: Order Comment: Speci men Type: BLOOD SPECIMENOrdering Facility: [facility] Address: [address] [place] [address] Performed By: #### 2 777-1, 50169-4 ####[facility] LABCLIA [id number] [address] [place] THERAPY NTon 01-20-2025 THERAPY NT Normal [facility] THERAPY NT Normal [facility] CASE MANAGEMon 01-19-2025 CASE MANAGEM Normal [facility] CASE MANAGEM Normal [facility] CBC panel Auto (Bld)on 01-19 Erythrocyte distribution width (RBC) [Ratio] 14.6 % Normal 11.5-15.0 [facility] Comment on above: Order Comment: Speci men Type: BLOOD SPECIMENOrdering Facility: [facility] Address: [address] [place] [address] Performed By: #### 5 8410-2 ####[facility] LABCLIA [id number] [place] [address] [place] Hematocrit (Bld) [Volume fraction] 30.1 % Low 39.0-51.0 [facility] Comment on above: Order Comment: Speci men Type: BLOOD SPECIMENOrdering Facility: [facility] Address: [address] [place] [address] Performed By: #### 5 8410-2 ####[facility] LABCLIA [id number] [place] [address] [place] Hemoglobin (Bld) [Mass/Vol] 9.5 g/dL Low 13.0-17.0 [facility] Comment on above: Order Comment: Speci men Type: BLOOD SPECIMENOrdering Facility: [facility] Address: [address] [place] [address] Performed By: #### 5 8410-2 ####[facility] LABIA [id number] [place] [address] [place] MCH (RBC) [Entitic mass] 31.4 pg Normal 26.0-34.0 [facility] Comment on above: Order Comment: Speci men Type: BLOOD SPECIMENOrdering Facility: [facility] Address: [address] [place] [address] Performed By: #### 5 8410-2 ####[facility] LABIA [id number] [place] [address] [place] MCHC (RBC) [Mass/Vol] 31.6 g/dL Normal 30.5-36.0 [facility] Comment on above: Order Comment: Speci men Type: BLOOD SPECIMENOrdering Facility: [facility] Address: [address] [place] [address] Performed By: #### 5 8410-2 ####[facility] LABIA [id number] [place] [address] [place] MCV (RBC) [Entitic vol] 99.3 fL Normal 80.0-100.0 [facility] Comment on above: Order Comment: Speci men Type: BLOOD SPECIMENOrdering Facility: [facility] Address: [address] [place] [address] Performed By: #### 5 8410-2 ####[facility] LABIA [id number] [address] [place] Nucleated RBC (Bld) [#/Vol] 10*3/uL Normal <0.01 [facility] Comment on above: Order Comment: Speci men Type: BLOOD SPECIMENOrdering Facility: [facility] Address: [address] [place] [address] Performed By: #### 5 8410-2 ####[facility] LABCLIA [id number] [place] [address] [place] Platelet mean volume (Bld) [Entitic vol] 10.5 fL Normal 9.0-12.7 [facility] Comment on above: Order Comment: Speci men Type: BLOOD SPECIMENOrdering Facility: [facility] Address: [address] [place] [address] Performed By: #### 5 8410-2 ####[facility] LABCLIA [id number] [place] [address] [place] Platelets (Bld) [#/Vol] 211 10*3/uL Normal 150-400 [facility] Comment on above: Order Comment: Speci men Type: BLOOD SPECIMENOrdering Facility: [facility] Address: [address] [place] [address] Performed By: #### 5 8410-2 ####[facility] LABCLIA [id number] [place] [address] [place] RBC (Bld) [#/Vol] 3.03 10*6/uL Low 4.20-6.[address] [facility] Comment on above: Order Comment: Speci men Type: BLOOD SPECIMENOrdering Facility: [facility] Address: [address] [place] [address] Performed By: #### 5 8410-2 ####[facility] LABCLIA [id number] [place] [id number] [place] WBC (Bld) [#/Vol] 7.75 10*3/uL Normal 3.70-11.[address] [facility] Comment on above: Order Comment: Speci men Type: BLOOD SPECIMENOrdering Facility: [facility] Address: [address] [place] [address] Performed By: #### 5 8410-2 ####[facility] LABCLIA [id number] [address] [address] [place] CONSULT PROGon 01-19-2025 CONSULT PROG Normal [facility] CONSULT PROG Normal [facility] Comprehensive metabolic 2000 panelon 01-19-2025 Albumin [Mass/Vol] 3.2 g/dL Low 3.9-4.9 [facility] Comment on above: Order Comment: Speci men Type: BLOOD SPECIMENOrdering Facility: [facility] Address: [address] [place] [address] Performed By: #### 2 4323-8, 277-1 ####[facility] LABCLIA [id number] [place] [address] [place] ALP [Catalytic activity/Vol] 158 U/L High 38-113 [facility] Comment on above: Order Comment: Speci men Type: BLOOD SPECIMENOrdering Facility: [facility] Address: [address] [place] [address] Performed By: #### 2 4323-8, 277- ####[facility] LABIA [id number] [place] [address] [place] ALT [Catalytic activity/Vol] 6 U/L Low 10-54 [facility] Comment on above: Order Comment: Speci men Type: BLOOD SPECIMENOrdering Facility: [facility] Address: [address] [place] [address] Result Comment: Resu lt rechecked. Performed By: #### 2 4323-8, 277- ####[facility] LABIA [id number] [place] [id number] [place] Anion gap [Moles/Vol] 18 mmol/L High 8-15 [facility] [facility] Comment on above: Order Comment: Speci men Type: BLOOD SPECIMENOrdering Facility: [facility] Address: [address] [place] [address] Performed By: #### 2 4323-8, 277- ####[facility] LABCLIA [id number] [address] [place] [address] [place] AST [Catalytic activity/Vol] 25 U/L Normal 14-40 [facility] Comment on above: Order Comment: Speci men Type: BLOOD SPECIMENOrdering Facility: [facility] Address: [address] [place] [address] Performed By: #### 2 4323-8, 2776- ####[facility] LABCLIA [id number] [address] [address] [place] Bilirubin [Mass/Vol] 0.5 mg/dL Normal 0.2-1.3 [facility] Comment on above: Order Comment: Speci men Type: BLOOD SPECIMENOrdering Facility: [facility] Address: [address] [place] [address] Performed By: #### 2 4323-8, 2776-08 ####[facility] LABIA [id number] [place] [id number] [place] Calcium [Mass/Vol] 9.0 mg/dL Normal 8.5-10.2 [facility] Comment on above: Order Comment: Speci men Type: BLOOD SPECIMENOrdering Facility: [facility] Address: [address] [place] [address] Performed By: #### 2 4323-8, 2776-08 ####[facility] LABIA [id number] [place] [id number] [place] Chloride [Moles/Vol] 95 mmol/L Low 98-107 [facility] Comment on above: Order Comment: Speci men Type: BLOOD SPECIMENOrdering Facility: [facility] Address: [address] [place], [place] [address] Performed By: #### 2 4323-8, 277- ####[facility] LABCLIA [id number] [place] [id number] [place] CO2 [Moles/Vol] 25 mmol/L Normal 22-30 [facility] Comment on above: Order Comment: Speci men Type: BLOOD SPECIMENOrdering Facility: [facility] Address: [address] [place] [address] Performed By: #### 2 4323-8, 277- ####[facility] LABCLIA [id number] [place] [id number] [place] Creatinine [Mass/Vol] 7.06 mg/dL High 0.73-1.22 [facility] Comment on above: Order Comment: Speci men Type: BLOOD SPECIMENOrdering Facility: [facility] Address: [address] [place] [address] Performed By: #### 2 4323-8, 2776-08 ####[facility] LABCLIA [id number] [place] [address] [place] Creatinine and Glomerular filtration rate.predicted panel (S/P/Bld) 7 mL/min/1.73m??? Low >=60 [facility] Comment on above: Order Comment: Speci men Type: BLOOD SPECIMENOrdering Facility: [facility] Address: [address] [place] [address] Result Comment: Maggy mated Glomerular Filtration Rate (eGFR) is calculated using the 2020 CKD-EPI creatinine equation. This equation utilizes serum creatinine, sex, and age as parameters. The creatinine assay has traceable calibration to isotope dilution-mass spectrometry. Refer to KDIGO guidelines for clinical interpretation. In patients with unstable renal function, e.g. those with acute kidney injury, the eGFR may not accurately reflect actual GFR. Performed By: #### 2 4323-8, 277- ####[facility] LABCLIA [id number] [place] [id number] [place] Glucose [Mass/Vol] 203 mg/dL High 74-99 [facility] Comment on above: Order Comment: Speci men Type: BLOOD SPECIMENOrdering Facility: [facility] Address: [address], [place] [address] Result Comment: The [place] Diabetes [employer] (ADA) provides guidance for cutoff values for fasting glucose and random glucose. The ADA defines fasting as no caloric intake for at least 8 hours. Fasting plasma glucose results between 100 to 125 mg/dL indicate increased risk for diabetes (prediabetes).Fasting plasma glucose results greater than or equal to 126 mg/dL meet the criteria for diagnosis of diabetes. In the absence of unequivocal hyperglycemia, results should be confirmed by repeat testing. In a patient with classic symptoms of hyperglycemia or hyperglycemic crisis, random plasma glucose results greater than or equal to 200 mg/dL meet the criteria for diagnosis of diabetes.Reference: Standards of Medical Care in Diabetes 2016, [place] [employer]. Diabetes Care. 2016.39(Suppl 1). Performed By: #### 2 4323-8, 2777-1 ####[facility] LABIA [id number] [place] [address] [place] Potassium [Moles/Vol] 4.1 mmol/L Normal 3.7-5.1 [facility] Comment on above: Order Comment: Speci men Type: BLOOD SPECIMENOrdering Facility: [facility] Address: [address] [place] [id number] Performed By: #### 2 4323-8, 2777- ####[facility] LABIA [id number] [place] [id number] [place] Protein [Mass/Vol] 6.6 g/dL Normal 6.3-8.0 [facility] Comment on above: Order Comment: Speci men Type: BLOOD SPECIMENOrdering Facility: [facility] Address: [address] [place] [address] Performed By: #### 2 4323-8, 2777- ####[facility] LABIA [id number] [place] [id number] [place] Sodium [Moles/Vol] 138 mmol/L Normal 136-144 [facility] Comment on above: Order Comment: Speci men Type: BLOOD SPECIMENOrdering Facility: [facility] Address: [address] [place] [address] Performed By: #### 2 4323-8, 2777-1 ####[facility] LABCLIA [id number] [place] [id number] [place] Urea nitrogen [Mass/Vol] 96 mg/dL High 9-24 [facility] Comment on above: Order Comment: Speci men Type: BLOOD SPECIMENOrdering Facility: [facility] Address: [address] [place] [address] Performed By: #### 2 4323-8, 2777-1 ####[facility] LABIA [id number] [place] [id number] [place] Phosphate SerPl-mCncon 01-19 Phosphate [Mass/Vol] 4.3 mg/dL Normal 2.7-4.8 [facility] Comment on above: Order Comment: Speci men Type: BLOOD SPECIMENOrdering Facility: [facility] Address: [address] [place] [address] Performed By: #### 2 4323-8, 2777-1 ####[facility] LABIA [id number] [place] [address] [place] THERAPY NTon 01-19-2025 THERAPY NT Normal [facility] CBC panel Auto (Bld)on 01-18 Erythrocyte distribution width (RBC) [Ratio] 14.7 % Normal 11.5-15.0 [facility] Comment on above: Order Comment: Speci men Type: BLOOD SPECIMENOrdering Facility: [facility] Address: [address] [place] [address] Performed By: #### 5 8410-2 ####[facility] LABIA [id number] [address] STATES OF [facility] Hematocrit (Bld) [Volume fraction] 29.2 % Low 39.0-51.0 [facility] Comment on above: Order Comment: Speci men Type: BLOOD SPECIMENOrdering Facility: [facility] Address: [address] [place] [address] Performed By: #### 5 8410-2 ####[facility] LABIA [id number] [place] [address] [place] Hemoglobin (Bld) [Mass/Vol] 9.0 g/dL Low 13.0-17.0 [facility] Comment on above: Order Comment: Speci men Type: BLOOD SPECIMENOrdering Facility: [facility] Address: [address] [place] [address] Performed By: #### 5 8410-2 ####[facility] LABIA [id number] [place] [address] [place] MCH (RBC) [Entitic mass] 31.0 pg Normal 26.0-34.0 [facility] Comment on above: Order Comment: Speci men Type: BLOOD SPECIMENOrdering Facility: [facility] Address: [address] [place] [address] Performed By: #### 5 8410-2 ####[facility] LABIA [id number] [place] [address] [place] MCHC (RBC) [Mass/Vol] 30.8 g/dL Normal 30.5-36.0 [facility] Comment on above: Order Comment: Speci men Type: BLOOD SPECIMENOrdering Facility: [facility] Address: [address] [place] [address] Performed By: #### 5 8410-2 ####[facility] LABIA [id number] [place] [address] [place] MCV (RBC) [Entitic vol] 100.7 fL High 80.0-100.0 [facility] Comment on above: Order Comment: Speci men Type: BLOOD SPECIMENOrdering Facility: [facility] Address: [address] [place] [address] Performed By: #### 5 8410-2 ####[facility] LABIA [id number] [place] [address] [place] Nucleated RBC (Bld) [#/Vol] 10*3/uL Normal <0.01 [facility] Comment on above: Order Comment: Speci men Type: BLOOD SPECIMENOrdering Facility: [facility] Address: [address] [place] [address] Performed By: #### 5 8410-2 ####[facility] LABCLIA [id number] [place] [address] [place] Platelet mean volume (Bld) [Entitic vol] 10.6 fL Normal 9.0-12.7 [facility] Comment on above: Order Comment: Speci men Type: BLOOD SPECIMENOrdering Facility: [facility] Address: [address] [place] [address] Performed By: #### 5 8410-2 ####[facility] LABCLIA [id number] [place] [address] [place] Platelets (Bld) [#/Vol] 177 10*3/uL Normal 150-400 [facility] Comment on above: Order Comment: Speci men Type: BLOOD SPECIMENOrdering Facility: [facility] Address: [address] [place] [address] Performed By: #### 5 8410-2 ####[facility] LABIA [id number] [place] [address] [place] RBC (Bld) [#/Vol] 2.90 10*6/uL Low 4.20-6.[address] [facility] Comment on above: Order Comment: Speci men Type: BLOOD SPECIMENOrdering Facility: [facility] Address: [address] [place] [address] Performed By: #### 5 8410-2 ####[facility] LABCLIA [id number] [place] [id number] [place] WBC (Bld) [#/Vol] 7.73 10*3/uL Normal 3.70-11.[address] [facility] Comment on above: Order Comment: Speci men Type: BLOOD SPECIMENOrdering Facility: [facility] Address: [address] [place] [address] Performed By: #### 5 8410-2 ####[facility] LABCLIA [id number] [place] [address] [place] CONSULT PROGon 01-18-2025 CONSULT PROG Normal [facility] CONSULT PROG Normal [facility] Comprehensive metabolic 2000 panelon 01-18-2025 Albumin [Mass/Vol] 3.1 g/dL Low 3.9-4.9 [facility] Comment on above: Order Comment: Speci men Type: BLOOD SPECIMENOrdering Facility: [facility] Address: [address] [place] [address] Performed By: #### 2 4323-8, 2777-1 ####[facility] LABCLIA [id number] [place] [address] [place] ALP [Catalytic activity/Vol] 167 U/L High 38-113 [facility] Comment on above: Order Comment: Speci men Type: BLOOD SPECIMENOrdering Facility: [facility] Address: [address] [place] [address] Performed By: #### 2 4323-8, 2777-1 ####[facility] LABCLIA [id number] [place] [address] [place] ALT [Catalytic activity/Vol] 6 U/L Low 10-54 [facility] Comment on above: Order Comment: Speci men Type: BLOOD SPECIMENOrdering Facility: [facility] Address: [address] [place] [address] Performed By: #### 2 4323-8, 2777-1 ####[facility] LABCLIA [id number] [place] [id number] [place] Anion gap [Moles/Vol] 16 mmol/L High 8-15 [facility] Comment on above: Order Comment: Speci men Type: BLOOD SPECIMENOrdering Facility: [facility] Address: [address] [place] [id number] Performed By: #### 2 4323-8, 27702-17 ####[facility] LABCLIA [id number] [address] [address] [place] AST [Catalytic activity/Vol] 24 U/L Normal 14-40 [facility] Comment on above: Order Comment: Speci men Type: BLOOD SPECIMENOrdering Facility: [facility] Address: [address] [place], [place] [address] Performed By: #### 2 4323-8, 27702-17 ####[facility] LABCLIA [id number] [place] [id number] [place] Bilirubin [Mass/Vol] 0.5 mg/dL Normal 0.2-1.3 [facility] Comment on above: Order Comment: Speci men Type: BLOOD SPECIMENOrdering Facility: [facility] Address: [address] [place], [place] [address] Performed By: #### 2 4323-8, 2776-08 ####[facility] LABCLIA [id number] [place] [id number] [place] Calcium [Mass/Vol] 8.9 mg/dL Normal 8.5-10.2 [facility] Comment on above: Order Comment: Speci men Type: BLOOD SPECIMENOrdering Facility: [facility] Address: [address] [place] [id number] Performed By: #### 2 4323-8, 27702-17 ####[facility] LABCLIA [id number] [place] [id number] [place] Chloride [Moles/Vol] 95 mmol/L Low 98-107 [facility] Comment on above: Order Comment: Speci men Type: BLOOD SPECIMENOrdering Facility: [facility] Address: [address] [place], [place] [address] Performed By: #### 2 4323-8, 2777- ####[facility] LABCLIA [id number] [address] [address] [place] CO2 [Moles/Vol] 27 mmol/L Normal 22-30 [facility] Comment on above: Order Comment: Speci men Type: BLOOD SPECIMENOrdering Facility: [facility] Address: [address] [place] [address] Performed By: #### 2 4323-8, 27702-17 ####[facility] LABIA [id number] [place] [id number] [place] Creatinine [Mass/Vol] 7.17 mg/dL High 0.73-1.22 [facility] Comment on above: Order Comment: Speci men Type: BLOOD SPECIMENOrdering Facility: [facility] Address: [address] [place] [address] Performed By: #### 2 4323-8, 2776-08 ####[facility] LABIA [id number] [place] [address] [place] Creatinine and Glomerular filtration rate.predicted panel (S/P/Bld) 7 mL/min/1.73m??? Low >=60 [facility] Comment on above: Order Comment: Speci men Type: BLOOD SPECIMENOrdering Facility: [facility] Address: [address] [place] [address] Result Comment: Maggy mated Glomerular Filtration Rate (eGFR) is calculated using the 2020 CKD-EPI creatinine equation. This equation utilizes serum creatinine, sex, and age as parameters. The creatinine assay has traceable calibration to isotope dilution-mass spectrometry. Refer to KDIGO guidelines for clinical interpretation. In patients with unstable renal function, e.g. those with acute kidney injury, the eGFR may not accurately reflect actual GFR. Performed By: #### 2 4323-8, 2777- ####[facility] LABIA [id number] [address] [address] [place] Glucose [Mass/Vol] 102 mg/dL High 74-99 [facility] Comment on above: Order Comment: Speci men Type: BLOOD SPECIMENOrdering Facility: [facility] Address: [address] [place] [address] Result Comment: The [place] Diabetes [employer] (ADA) provides guidance for cutoff values for fasting glucose and random glucose. The ADA defines fasting as no caloric intake for at least 8 hours. Fasting plasma glucose results between 100 to 125 mg/dL indicate increased risk for diabetes (prediabetes).Fasting plasma glucose results greater than or equal to 126 mg/dL meet the criteria for diagnosis of diabetes. In the absence of unequivocal hyperglycemia, results should be confirmed by repeat testing. In a patient with classic symptoms of hyperglycemia or hyperglycemic crisis, random plasma glucose results greater than or equal to 200 mg/dL meet the criteria for diagnosis of diabetes.Reference: Standards of Medical Care in Diabetes 2016, [place] [employer]. Diabetes Care. 2016.39(Suppl 1). Performed By: #### 2 4323-8, 277- ####[facility] LABCLIA [id number] [place] [address] [place] Potassium [Moles/Vol] 4.0 mmol/L Normal 3.7-5.1 [facility] Comment on above: Order Comment: Vandana aguero Type: BLOOD SPECIMENOrdering Facility: [facility] Address: [address] [place] [address] Performed By: #### 2 4323-8, 277- ####[facility] LABCLIA [id number] [place] [id number] [place] Protein [Mass/Vol] 6.3 g/dL Normal 6.3-8.0 [facility] Comment on above: Order Comment: Vandana aguero Type: BLOOD SPECIMENOrdering Facility: [facility] Address: [address] [place] [address] Performed By: #### 2 4323-8, 2777- ####[facility] LABCLIA [id number] [place] [id number] [place] Sodium [Moles/Vol] 138 mmol/L Normal 136-144 [facility] Comment on above: Order Comment: Speci men Type: BLOOD SPECIMENOrdering Facility: [facility] Address: [address] [place] [address] Performed By: #### 2 4323-8, 2777-1 ####[facility] LABCLIA [id number] [place] [address] [place] Urea nitrogen [Mass/Vol] 93 mg/dL High 9-24 [facility] Comment on above: Order Comment: Speci men Type: BLOOD SPECIMENOrdering Facility: [facility] Address: [address] [place] [address] Performed By: #### 2 4323-8, 277-1 ####[facility] LABCLIA [id number] [place] [address] [place] Phosphate SerPl-mCncon 01-18 Phosphate [Mass/Vol] 4.4 mg/dL Normal 2.7-4.8 [facility] Comment on above: Order Comment: Speci men Type: BLOOD SPECIMENOrdering Facility: [facility] Address: [address] [place] [address] Performed By: #### 2 4323-8, 27702-17 ####[facility] LABIA [id number] [place] [address] [place] CASE MANAGEMon 01-17-2025 CASE MANAGEM Normal [facility] CBC panel Auto (Bld)on 01-17 Erythrocyte distribution width (RBC) [Ratio] 14.7 % Normal 11.5-15.0 [facility] Comment on above: Order Comment: Speci men Type: BLOOD SPECIMENOrdering Facility: [facility] Address: [address] [place] [address] Performed By: #### 5 8410-2 ####[facility] LABCLIA [id number] [place] [address] [place] Hematocrit (Bld) [Volume fraction] 30.4 % Low 39.0-51.0 [facility] Comment on above: Order Comment: Speci men Type: BLOOD SPECIMENOrdering Facility: [facility] Address: [address] [place] [address] Performed By: #### 5 8410-2 ####[facility] LABIA [id number] [place] [address] [place] Hemoglobin (Bld) [Mass/Vol] 9.5 g/dL Low 13.0-17.0 [facility] Comment on above: Order Comment: Speci men Type: BLOOD SPECIMENOrdering Facility: [facility] Address: [address] [place] [address] Performed By: #### 5 8410-2 ####[facility] LABIA [id number] [address] [place] MCH (RBC) [Entitic mass] 31.6 pg Normal 26.0-34.0 [facility] Comment on above: Order Comment: Speci men Type: BLOOD SPECIMENOrdering Facility: [facility] Address: [address] [place] [address] Performed By: #### 5 8410-2 ####[facility] [id number] [address] [place] MCHC (RBC) [Mass/Vol] 31.3 g/dL Normal 30.5-36.0 [facility] Comment on above: Order Comment: Speci men Type: BLOOD SPECIMENOrdering Facility: [facility] Address: [address] [place] [address] Performed By: #### 5 8410-2 ####[facility] LABIA [id number] [place] [address] [place] MCV (RBC) [Entitic vol] 101.0 fL High 80.0-100.0 [facility] Comment on above: Order Comment: Speci men Type: BLOOD SPECIMENOrdering Facility: [facility] Address: [address] [place] [address] Performed By: #### 5 8410-2 ####[facility] LABIA [id number] [place] [address] [place] Nucleated RBC (Bld) [#/Vol] 10*3/uL Normal <0.01 [facility] Comment on above: Order Comment: Speci men Type: BLOOD SPECIMENOrdering Facility: [facility] Address: [address] [place] [address] Performed By: #### 5 8410-2 ####[facility] LABIA [id number] [place] [address] [place] Platelet mean volume (Bld) [Entitic vol] 10.9 fL Normal 9.0-12.7 [facility] Comment on above: Order Comment: Speci men Type: BLOOD SPECIMENOrdering Facility: [facility] Address: [address] [place] [address] Performed By: #### 5 8410-2 ####[facility] LABIA [id number] [place] [address] [place] Platelets (Bld) [#/Vol] 163 10*3/uL Normal 150-400 [facility] Comment on above: Order Comment: Speci men Type: BLOOD SPECIMENOrdering Facility: [facility] Address: [address] [place] [address] Performed By: #### 5 8410-2 ####[facility] LABIA [id number] [place] [id number] [place] RBC (Bld) [#/Vol] 3.01 10*6/uL Low 4.20-6.[address] [facility] Comment on above: Order Comment: Speci men Type: BLOOD SPECIMENOrdering Facility: [facility] Address: [address] [place] [address] Performed By: #### 5 8410-2 ####[facility] LABCLIA [id number] [address] [address] [place] WBC (Bld) [#/Vol] 9.24 10*3/uL Normal 3.70-11.[address] [facility] Comment on above: Order Comment: Speci men Type: BLOOD SPECIMENOrdering Facility: [facility] Address: [address] [place] [address] Performed By: #### 5 8410-2 ####[facility] LABIA [id number] [place] [address] [place] CONSULT PROGon 01-17-2025 CONSULT PROG Normal [facility] CONSULT PROG Normal [facility] Comprehensive metabolic 2000 panelon 01-17-2025 Albumin [Mass/Vol] 3.1 g/dL Low 3.9-4.9 [facility] Comment on above: Order Comment: Speci men Type: BLOOD SPECIMENOrdering Facility: [facility] Address: [address] [place] [address] Performed By: #### 2 4323-8, 2777- ####[facility] LABIA [id number] [place] [address] [place] ALP [Catalytic activity/Vol] 138 U/L High 38-113 [facility] Comment on above: Order Comment: Speci men Type: BLOOD SPECIMENOrdering Facility: [facility] Address: [address] [place] [address] Performed By: #### 2 4323-8, 2777-1 ####[facility] LABIA [id number] [place] [address] [place] ALT [Catalytic activity/Vol] 7 U/L Low 10-54 [facility] Comment on above: Order Comment: Speci men Type: BLOOD SPECIMENOrdering Facility: [facility] Address: [address] [place] [address] Performed By: #### 2 4323-8, 277-1 ####[facility] LABCLIA [id number] [facility] [address] [place] [address] [place] Anion gap [Moles/Vol] 15 mmol/L Normal 8-15 [facility] Comment on above: Order Comment: Speci men Type: BLOOD SPECIMENOrdering Facility: [facility] Address: [address] [place] [address] Performed By: #### 2 4323-8, 277- ####[facility] LABCLIA [id number] [facility] [address], [place] [facility] [place] AST [Catalytic activity/Vol] 27 U/L Normal 14-40 [facility] Comment on above: Order Comment: Speci men Type: BLOOD SPECIMENOrdering Facility: [facility] Address: [address] [place] [address] Performed By: #### 2 4323-8, 2776-08 ####[facility] LABCLIA [id number] [place] [id number] [place] Bilirubin [Mass/Vol] 0.5 mg/dL Normal 0.2-1.3 [facility] Comment on above: Order Comment: Speci men Type: BLOOD SPECIMENOrdering Facility: [facility] Address: [address] [place] [address] Performed By: #### 2 4323-8, 27702-17 ####[facility] LABCLIA [id number] [place] [id number] [place] Calcium [Mass/Vol] 9.2 mg/dL Normal 8.5-10.2 [facility] Comment on above: Order Comment: Speci men Type: BLOOD SPECIMENOrdering Facility: [facility] Address: [address] [place], [place] [address] Performed By: #### 2 4323-8, 277- ####[facility] LABCLIA [id number] [place] [id number] [place] Chloride [Moles/Vol] 95 mmol/L Low 98-107 [facility] Comment on above: Order Comment: Speci men Type: BLOOD SPECIMENOrdering Facility: [facility] Address: [address] [place] [address] Performed By: #### 2 4323-8, 2777- ####[facility] LABCLIA [id number] [place] [id number] [place] CO2 [Moles/Vol] 27 mmol/L Normal 22-30 [facility] Comment on above: Order Comment: Speci men Type: BLOOD SPECIMENOrdering Facility: [facility] Address: [address] [place] [address] Performed By: #### 2 4323-8, 277- ####[facility] LABCLIA [id number] [place] [address] [place] Creatinine [Mass/Vol] 6.20 mg/dL High 0.73-1.22 [facility] Comment on above: Order Comment: Speci men Type: BLOOD SPECIMENOrdering Facility: [facility] Address: [address] [place] [address] Performed By: #### 2 4323-8, 27702-17 ####[facility] LABIA [id number] [place] [address] [place] Creatinine and Glomerular filtration rate.predicted panel (S/P/Bld) 9 mL/min/1.73m??? Low >=60 [facility] Comment on above: Order Comment: Speci men Type: BLOOD SPECIMENOrdering Facility: [facility] Address: [address] [place] [address] Result Comment: Maggy mated Glomerular Filtration Rate (eGFR) is calculated using the 2020 CKD-EPI creatinine equation. This equation utilizes serum creatinine, sex, and age as parameters. The creatinine assay has traceable calibration to isotope dilution-mass spectrometry. Refer to KDIGO guidelines for clinical interpretation. In patients with unstable renal function, e.g. those with acute kidney injury, the eGFR may not accurately reflect actual GFR. Performed By: #### 2 4323-8, 2776- ####[facility] LABIA [id number] [address] [address] [place] Glucose [Mass/Vol] 226 mg/dL High 74-99 [facility] Comment on above: Order Comment: Speci men Type: BLOOD SPECIMENOrdering Facility: [facility] Address: [address] [place] [address] Result Comment: The [place] Diabetes [employer] (ADA) provides guidance for cutoff values for fasting glucose and random glucose. The ADA defines fasting as no caloric intake for at least 8 hours. Fasting plasma glucose results between 100 to 125 mg/dL indicate increased risk for diabetes (prediabetes).Fasting plasma glucose results greater than or equal to 126 mg/dL meet the criteria for diagnosis of diabetes. In the absence of unequivocal hyperglycemia, results should be confirmed by repeat testing. In a patient with classic symptoms of hyperglycemia or hyperglycemic crisis, random plasma glucose results greater than or equal to 200 mg/dL meet the criteria for diagnosis of diabetes.Reference: Standards of Medical Care in Diabetes 2016, [place] [employer]. Diabetes Care. 2016.39(Suppl 1). Performed By: #### 2 4323-8, 2776-08 ####[facility] LABIA [id number] [place] [id number] [place] Potassium [Moles/Vol] 3.9 mmol/L Normal 3.7-5.1 [facility] Comment on above: Order Comment: Speci men Type: BLOOD SPECIMENOrdering Facility: [facility] Address: [address] [place] [id number] Performed By: #### 2 4323-8, 27702-17 ####[facility] LABIA [id number] [address] [address] [place] Protein [Mass/Vol] 6.4 g/dL Normal 6.3-8.0 [facility] Comment on above: Order Comment: Speci men Type: BLOOD SPECIMENOrdering Facility: [facility] Address: [address] [place] [id number] Performed By: #### 2 4323-8, 2777-1 ####[facility] LABCLIA [id number] [address] [address] [place] Sodium [Moles/Vol] 137 mmol/L Normal 136-144 [facility] Comment on above: Order Comment: Speci men Type: BLOOD SPECIMENOrdering Facility: [facility] Address: [address] [place] [address] Performed By: #### 2 4323-8, 277- ####[facility] LABIA [id number] [place] [id number] [place] Urea nitrogen [Mass/Vol] 86 mg/dL High 9-24 [facility] Comment on above: Order Comment: Speci men Type: BLOOD SPECIMENOrdering Facility: [facility] Address: [address] [place] [address] Performed By: #### 2 4323-8, 2771 ####[facility] LABIA [id number] [place] [id number] [place] Phosphate SerPl-mCncon 01-17 Phosphate [Mass/Vol] 3.9 mg/dL Normal 2.7-4.8 [facility] Comment on above: Order Comment: Speci men Type: BLOOD SPECIMENOrdering Facility: [facility] Address: [address] [place], [place] [address] Performed By: #### 2 4323-8, 277-1 ####[facility] LABIA [id number] [place] [id number] [place] CBC panel Auto (Bld)on 01-16 Erythrocyte distribution width (RBC) [Ratio] 14.6 % Normal 11.5-15.0 [facility] Comment on above: Order Comment: Speci men Type: BLOOD SPECIMENOrdering Facility: [facility] Address: [address] [place] [address] Performed By: #### 5 8410-2 ####[facility] LABIA [id number] [place] [address] [place] Hematocrit (Bld) [Volume fraction] 29.6 % Low 39.0-51.0 [facility] Comment on above: Order Comment: Speci men Type: BLOOD SPECIMENOrdering Facility: [facility] Address: [address] [place] [address] Performed By: #### 5 8410-2 ####[facility] LABIA [id number] [place] [address] [place] Hemoglobin (Bld) [Mass/Vol] 9.4 g/dL Low 13.0-17.0 [facility] Comment on above: Order Comment: Speci men Type: BLOOD SPECIMENOrdering Facility: [facility] Address: [address] [place] [address] Performed By: #### 5 8410-2 ####[facility] LABIA [id number] [place] [address] [place] MCH (RBC) [Entitic mass] 31.5 pg Normal 26.0-34.0 [facility] Comment on above: Order Comment: Speci men Type: BLOOD SPECIMENOrdering Facility: [facility] Address: [address] [place] [address] Performed By: #### 5 8410-2 ####[facility] LABIA [id number] [place] [address] [place] MCHC (RBC) [Mass/Vol] 31.8 g/dL Normal 30.5-36.0 [facility] Comment on above: Order Comment: Speci men Type: BLOOD SPECIMENOrdering Facility: [facility] Address: [address] [place] [address] Performed By: #### 5 8410-2 ####[facility] LAB[facility] [id number] [place] [address] [place] MCV (RBC) [Entitic vol] 99.3 fL Normal 80.0-100.0 [facility] Comment on above: Order Comment: Speci men Type: BLOOD SPECIMENOrdering Facility: [facility] Address: [address] [place] [address] Performed By: #### 5 8410-2 ####[facility] LABCLIA [id number] [place] [address] [place] Nucleated RBC (Bld) [#/Vol] 10*3/uL Normal <0.01 [facility] Comment on above: Order Comment: Speci men Type: BLOOD SPECIMENOrdering Facility: [facility] Address: [address] [place] [address] Performed By: #### 5 8410-2 ####[facility] LABIA [id number] [place] [address] [place] Platelet mean volume (Bld) [Entitic vol] 10.8 fL Normal 9.0-12.7 [facility] Comment on above: Order Comment: Speci men Type: BLOOD SPECIMENOrdering Facility: [facility] Address: [address] [place] [address] Performed By: #### 5 8410-2 ####[facility] LABIA [id number] [place] [address] [place] Platelets (Bld) [#/Vol] 147 10*3/uL Low 150-400 [facility] Comment on above: Order Comment: Speci men Type: BLOOD SPECIMENOrdering Facility: [facility] Address: [address] [place] [address] Performed By: #### 5 8410-2 ####[facility] LABCLIA [id number] [place] [address] [place] RBC (Bld) [#/Vol] 2.98 10*6/uL Low 4.20-6.[address] [facility] Comment on above: Order Comment: Speci men Type: BLOOD SPECIMENOrdering Facility: [facility] Address: [address] [place] [address] Performed By: #### 5 8410-2 ####[facility] LABIA [id number] [address] [address] [place] WBC (Bld) [#/Vol] 6.99 10*3/uL Normal 3.70-11.[address] [facility] Comment on above: Order Comment: Speci men Type: BLOOD SPECIMENOrdering Facility: [facility] Address: [address] [place] [address] Performed By: #### 5 8410-2 ####[facility] LABIA [id number] [place] [address] [place] CONSULT PROGon 01-16-2025 CONSULT PROG Normal [facility] CONSULT PROG Normal [facility] Comprehensive metabolic 2000 panelon 01-16-2025 Albumin [Mass/Vol] 3.5 g/dL Low 3.9-4.9 [facility] Comment on above: Order Comment: Speci men Type: BLOOD SPECIMENOrdering Facility: [facility] Address: [address] [place] [address] Performed By: #### 2 777-1, , ####[facility] LABIA [id number] [place] [address] [place] ALP [Catalytic activity/Vol] 169 U/L High 38-113 [facility] Comment on above: Order Comment: Speci men Type: BLOOD SPECIMENOrdering Facility: [facility] Address: [address] [place], [place] [address] Performed By: #### 2 777-1, , ####[facility] LABIA [id number] [place] [id number] [place] ALT [Catalytic activity/Vol] 5 U/L Low 10-54 [facility] Comment on above: Order Comment: Speci men Type: BLOOD SPECIMENOrdering Facility: [facility] Address: [address] [place], [place] [address] Performed By: #### 2 777-1, , ####[facility] LABCLIA [id number] [address] [address] [place] Anion gap [Moles/Vol] 16 mmol/L High 8-15 [facility] Comment on above: Order Comment: Speci men Type: BLOOD SPECIMENOrdering Facility: [facility] Address: [address] [place], [place] [address] Performed By: #### 2 777-1, , ####[facility] LABCLIA [id number] [place] [id number] [place] AST [Catalytic activity/Vol] 23 U/L Normal 14-40 [facility] Comment on above: Order Comment: Speci men Type: BLOOD SPECIMENOrdering Facility: [facility] Address: [address] [place], [place] [address] Performed By: #### 2 777-1, , ####[facility] LABCLIA [id number] [address] [address] [place] Bilirubin [Mass/Vol] 0.5 mg/dL Normal 0.2-1.3 [facility] Comment on above: Order Comment: Speci men Type: BLOOD SPECIMENOrdering Facility: [facility] Address: [address] [place], [place] [address] Performed By: #### 2 777-1, , ####[facility] LABCLIA [id number] [address] [address] [place] Calcium [Mass/Vol] 9.4 mg/dL Normal 8.5-10.2 [facility] Comment on above: Order Comment: Speci men Type: BLOOD SPECIMENOrdering Facility: [facility] Address: [address] [place], [place] [address] Performed By: #### 2 777-1, 87368-9, ####[facility] LABIA [id number] [place] [id number] [place] Chloride [Moles/Vol] 96 mmol/L Low 98-107 [facility] Comment on above: Order Comment: Speci men Type: BLOOD SPECIMENOrdering Facility: [facility] Address: [address] [place] [address] Performed By: #### 2 777-1, 89190-6, ####[facility] LABIA [id number] [place] [id number] [place] CO2 [Moles/Vol] 27 mmol/L Normal 22-30 [facility] Comment on above: Order Comment: Speci men Type: BLOOD SPECIMENOrdering Facility: [facility] Address: [address] [place] [address] Performed By: #### 2 777-1, 26324-8, ####[facility] LABIA [id number] [place] [id number] [place] Creatinine [Mass/Vol] 5.71 mg/dL High 0.73-1.22 [facility] Comment on above: Order Comment: Speci men Type: BLOOD SPECIMENOrdering Facility: [facility] Address: [address] [place] [address] Performed By: #### 2 777-1, 79140-2, ####[facility] LABIA [id number] [place] [id number] [place] Creatinine and Glomerular filtration rate.predicted panel (S/P/Bld) 10 mL/min/1.73m??? Low >=60 [facility] Comment on above: Order Comment: Speci men Type: BLOOD SPECIMENOrdering Facility: [facility] Address: [address] [place] [address] [place] [address] Result Comment: Maggy mated Glomerular Filtration Rate (eGFR) is calculated using the 2020 CKD-EPI creatinine equation. This equation utilizes serum creatinine, sex, and age as parameters. The creatinine assay has traceable calibration to isotope dilution-mass spectrometry. Refer to KDIGO guidelines for clinical interpretation. In patients with unstable renal function, e.g. those with acute kidney injury, the eGFR may not accurately reflect actual GFR. Performed By: #### 2 777-1, 23720-4, ####[facility] LABCLIA [id number] [address] [address] [place] Glucose [Mass/Vol] 235 mg/dL High 74-99 [facility] Comment on above: Order Comment: Vandana aguero Type: BLOOD SPECIMENOrdering Facility: [facility] Address: [address] [place] [address] Result Comment: The [place] Diabetes [employer] (ADA) provides guidance for cutoff values for fasting glucose and random glucose. The ADA defines fasting as no caloric intake for at least 8 hours. Fasting plasma glucose results between 100 to 125 mg/dL indicate increased risk for diabetes (prediabetes).Fasting plasma glucose results greater than or equal to 126 mg/dL meet the criteria for diagnosis of diabetes. In the absence of unequivocal hyperglycemia, results should be confirmed by repeat testing. In a patient with classic symptoms of hyperglycemia or hyperglycemic crisis, random plasma glucose results greater than or equal to 200 mg/dL meet the criteria for diagnosis of diabetes.Reference: Standards of Medical Care in Diabetes 2016, [place] [employer]. Diabetes Care. 2016.39(Suppl 1). Performed By: #### 2 777-1, 96881-3, ####[facility] LABIA [id number] [address] [address] [place] Potassium [Moles/Vol] 3.7 mmol/L Normal 3.7-5.1 [facility] Comment on above: Order Comment: Vandana men Type: BLOOD SPECIMENOrdering Facility: [facility] Address: [address] [place] [address] Performed By: #### 2 777-1, 89385-4, ####[facility] LABIA [id number] [address] [address] [place] Protein [Mass/Vol] 6.6 g/dL Normal 6.3-8.0 [facility] Comment on above: Order Comment: Speci men Type: BLOOD SPECIMENOrdering Facility: [facility] Address: [address] [place], [place] [address] Performed By: #### 2 777-1, 18328-0, ####[facility] LABIA [id number] [place] [id number] [place] Sodium [Moles/Vol] 139 mmol/L Normal 136-144 [facility] Comment on above: Order Comment: Speci men Type: BLOOD SPECIMENOrdering Facility: [facility] Address: [address] [place] [address] Performed By: #### 2 777-1, , ####[facility] [id number] [address] [address] [place] Urea nitrogen [Mass/Vol] 85 mg/dL High 9-24 [facility] Comment on above: Order Comment: Speci men Type: BLOOD SPECIMENOrdering Facility: [facility] Address: [address] [place], [place] [address] Performed By: #### 2 777-1, , ####[facility] LABIA [id number] [address] [address] [place] ECG COMPLETEon 01-16-2025 ECG COMPLETE Normal [facility] Magnesium SerPl-mCncon 01-16 Magnesium [Mass/Vol] 2.8 mg/dL High 1.7-2.3 [facility] Comment on above: Order Comment: Speci men Type: BLOOD SPECIMENOrdering Facility: [facility] Address: [address] [place], [place] [address] Performed By: #### 2 777-1, 11736-9, 60966-8 ####[facility] LABCLIA [id number] [address] [address] [place] Phosphate SerPl-mCncon 01-16 Phosphate [Mass/Vol] 3.9 mg/dL Normal 2.7-4.8 [facility] Comment on above: Order Comment: Speci men Type: BLOOD SPECIMENOrdering Facility: [facility] Address: [address] [place] [address] Performed By: #### 2 777-1, 12714-9, ####[facility] LABIA [id number] [address] THERAPY NTon 01-16-2025 THERAPY NT Normal [facility] THERAPY NT Normal [facility] XR MOD BARIUM SWALLOW W SPEE Claudia 01-16-2025 XR MOD BARIUM SWALLOW W SPEECH Normal [facility] CASE MANAGEMon 01-15-2025 CASE MANAGEM Normal [facility] CBC panel Auto (Bld)on 01-15 Erythrocyte distribution width (RBC) [Ratio] 14.7 % Normal 11.5-15.0 [facility] Comment on above: Order Comment: Speci men Type: BLOOD SPECIMENOrdering Facility: [facility] Address: [address] [place] [address] Performed By: #### 5 8410-2 ####[facility] LABIA [id number] [place] [id number] [place] [facility] Hematocrit (Bld) [Volume fraction] 29.6 % Low 39.0-51.0 [facility] Comment on above: Order Comment: Speci men Type: BLOOD SPECIMENOrdering Facility: [facility] Address: [address] [place], [place] [address] Performed By: #### 5 8410-2 ####[facility] LABCLIA [id number] [place] [id number] [place] Hemoglobin (Bld) [Mass/Vol] 9.4 g/dL Low 13.0-17.0 [facility] Comment on above: Order Comment: Speci men Type: BLOOD SPECIMENOrdering Facility: [facility] Address: [address] [place] [address] Performed By: #### 5 8410-2 ####[facility] LABIA [id number] [place] [address] [place] MCH (RBC) [Entitic mass] 31.6 pg Normal 26.0-34.0 [facility] Comment on above: Order Comment: Speci men Type: BLOOD SPECIMENOrdering Facility: [facility] Address: [address] [place] [address] Performed By: #### 5 8410-2 ####[facility] LABIA [id number] [address] [place] MCHC (RBC) [Mass/Vol] 31.8 g/dL Normal 30.5-36.0 [facility] Comment on above: Order Comment: Speci men Type: BLOOD SPECIMENOrdering Facility: [facility] Address: [address] [place] [address] Performed By: #### 5 8410-2 ####[facility] LABIA [id number] [place] [address] [place] MCV (RBC) [Entitic vol] 99.7 fL Normal 80.0-100.0 [facility] Comment on above: Order Comment: Speci men Type: BLOOD SPECIMENOrdering Facility: [facility] Address: [address] [place] [address] Performed By: #### 5 8410-2 ####[facility] LABIA [id number] [place] [address] [place] Nucleated RBC (Bld) [#/Vol] 10*3/uL Normal <0.01 [facility] Comment on above: Order Comment: Speci men Type: BLOOD SPECIMENOrdering Facility: [facility] Address: [address] [place] [address] Performed By: #### 5 8410-2 ####[facility] [id number] [place] [address] [place] Platelet mean volume (Bld) [Entitic vol] 10.9 fL Normal 9.0-12.7 [facility] Comment on above: Order Comment: Speci men Type: BLOOD SPECIMENOrdering Facility: [facility] Address: [address] [place] [address] Performed By: #### 5 8410-2 ####[facility] [id number] [place] [address] [place] Platelets (Bld) [#/Vol] 141 10*3/uL Low 150-400 [facility] Comment on above: Order Comment: Speci men Type: BLOOD SPECIMENOrdering Facility: [facility] Address: [address] [place] [address] Result Comment: Resu lts checked and verified.No clot detected. Performed By: #### 5 8410-2 ####[facility] [id number] [place] [address] [place] RBC (Bld) [#/Vol] 2.97 10*6/uL Low 4.20-6.[address] [facility] Comment on above: Order Comment: Speci men Type: BLOOD SPECIMENOrdering Facility: [facility] Address: [address] [place] [address] Performed By: #### 5 8410-2 ####[facility] [id number] [place] [address] [place] WBC (Bld) [#/Vol] 7.19 10*3/uL Normal 3.70-11.[address] [facility] Comment on above: Order Comment: Speci men Type: BLOOD SPECIMENOrdering Facility: [facility] Address: [address] [place] [address] Performed By: #### 5 8410-2 ####[facility] LABCLIA [id number] [place] [id number] [place] CONSULT PROGon 01-15-2025 CONSULT PROG Normal [facility] CONSULT PROG Normal [facility] Comprehensive metabolic 2000 panelon 01-15-2025 Albumin [Mass/Vol] 3.4 g/dL Low 3.9-4.9 [facility] Comment on above: Order Comment: Speci men Type: BLOOD SPECIMENOrdering Facility: [facility] Address: [address] [place] [address] Performed By: #### 2 4323-8, , 2776-08 ####[facility] LABCLIA [id number] [place] [id number] [place] ALP [Catalytic activity/Vol] 163 U/L High 38-113 [facility] Comment on above: Order Comment: Speci men Type: BLOOD SPECIMENOrdering Facility: [facility] Address: [address] [place] [address] Performed By: #### 2 4323-8, , 2776-08 ####[facility] LABCLIA [id number] [place] [id number] [place] ALT [Catalytic activity/Vol] 5 U/L Low 10-54 [facility] Comment on above: Order Comment: Speci men Type: BLOOD SPECIMENOrdering Facility: [facility] Address: [address] [place], [place] [address] Performed By: #### 2 4323-8, , 2776-08 ####[facility] LABCLIA [id number] [place] [id number] [place] Anion gap [Moles/Vol] 16 mmol/L High 8-15 [facility] Comment on above: Order Comment: Speci men Type: BLOOD SPECIMENOrdering Facility: [facility] Address: [address] [place] [address] Performed By: #### 2 4323-8, 34974-5, 2776-08 ####[facility] LABIA [id number] [place] [address] [place] AST [Catalytic activity/Vol] 25 U/L Normal 14-40 [facility] Comment on above: Order Comment: Speci men Type: BLOOD SPECIMENOrdering Facility: [facility] Address: [address] [place] [address] Performed By: #### 2 4323-8, 02487-0, 2776-08 ####[facility] LABIA [id number] [place] [address] [place] Bilirubin [Mass/Vol] 0.5 mg/dL Normal 0.2-1.3 [facility] Comment on above: Order Comment: Speci men Type: BLOOD SPECIMENOrdering Facility: [facility] Address: [address] [place] [address] Performed By: #### 2 4323-8, , 2776-08 ####[facility] LABIA [id number] [place] [address] [place] Calcium [Mass/Vol] 9.3 mg/dL Normal 8.5-10.2 [facility] Comment on above: Order Comment: Speci men Type: BLOOD SPECIMENOrdering Facility: [facility] Address: [address] [place] [address] Performed By: #### 2 4323-8, 41043-2, 2776-08 ####[facility] LABIA [id number] [place] [id number] [place] Chloride [Moles/Vol] 95 mmol/L Low 98-107 [facility] Comment on above: Order Comment: Speci men Type: BLOOD SPECIMENOrdering Facility: [facility] Address: [address] [place] [address] Performed By: #### 2 4323-8, , 2776-08 ####[facility] LABCLIA [id number] [address] [address] [place] CO2 [Moles/Vol] 27 mmol/L Normal 22-30 [facility] Comment on above: Order Comment: Speci men Type: BLOOD SPECIMENOrdering Facility: [facility] Address: [address] [place] [address] Performed By: #### 2 4323-8, , 2776-08 ####[facility] LABIA [id number] [place] [address] [place] Creatinine [Mass/Vol] 5.40 mg/dL High 0.73-1.22 [facility] Comment on above: Order Comment: Speci men Type: BLOOD SPECIMENOrdering Facility: [facility] Address: [address] [place] [address] Performed By: #### 2 4323-8, , 2776-08 ####[facility] LABIA [id number] [place] [address] [place] Creatinine and Glomerular filtration rate.predicted panel (S/P/Bld) 10 mL/min/1.73m??? Low >=60 [facility] Comment on above: Order Comment: Speci men Type: BLOOD SPECIMENOrdering Facility: [facility] Address: [address] [place] [address] Result Comment: Maggy mated Glomerular Filtration Rate (eGFR) is calculated using the 2020 CKD-EPI creatinine equation. This equation utilizes serum creatinine, sex, and age as parameters. The creatinine assay has traceable calibration to isotope dilution-mass spectrometry. Refer to KDIGO guidelines for clinical interpretation. In patients with unstable renal function, e.g. those with acute kidney injury, the eGFR may not accurately reflect actual GFR. Performed By: #### 2 4323-8, 62939-4, 2776-08 ####[facility] LABCLIA [id number] [address] [address] [place] Glucose [Mass/Vol] 238 mg/dL High 74-99 [facility] Comment on above: Order Comment: Speci men Type: BLOOD SPECIMENOrdering Facility: [facility] Address: [address] [place] [address] Result Comment: The [place] [employer] (ADA) provides guidance for cutoff values for fasting glucose and random glucose. The ADA defines fasting as no caloric intake for at least 8 hours. Fasting plasma glucose results between 100 to 125 mg/dL indicate increased risk for diabetes (prediabetes).Fasting plasma glucose results greater than or equal to 126 mg/dL meet the criteria for diagnosis of diabetes. In the absence of unequivocal hyperglycemia, results should be confirmed by repeat testing. In a patient with classic symptoms of hyperglycemia or hyperglycemic crisis, random plasma glucose results greater than or equal to 200 mg/dL meet the criteria for diagnosis of diabetes.Reference: Standards of Medical Care in Diabetes 2016, [place] [employer]. Diabetes Care. 2016.39(Suppl 1). Performed By: #### 2 4323-8, , 2776-08 ####[facility] LABIA [id number] [place] [id number] [place] Potassium [Moles/Vol] 3.6 mmol/L Low 3.7-5.1 [facility] Comment on above: Order Comment: Speci men Type: BLOOD SPECIMENOrdering Facility: [facility] Address: [address] [place], [place] [address] Performed By: #### 2 4323-8, , 2776-08 ####[facility] LABIA [id number] [address] [address] [place] Protein [Mass/Vol] 6.6 g/dL Normal 6.3-8.0 [facility] Comment on above: Order Comment: Speci men Type: BLOOD SPECIMENOrdering Facility: [facility] Address: [address] [place] [address] Performed By: #### 2 4323-8, , 2777-1 ####[facility] LABCLIA [id number] [address] [address] [place] Sodium [Moles/Vol] 138 mmol/L Normal 136-144 [facility] Comment on above: Order Comment: Speci men Type: BLOOD SPECIMENOrdering Facility: [facility] Address: [address] [place] [address] Performed By: #### 2 4323-8, , 2776-08 ####[facility] LABIA [id number] [place] [id number] [place] Urea nitrogen [Mass/Vol] 83 mg/dL High 9-24 [facility] Comment on above: Order Comment: Speci men Type: BLOOD SPECIMENOrdering Facility: [facility] Address: [address] [place] [address] Performed By: #### 2 4323-8, , 2776-08 ####[facility] [id number] [place] [id number] [place] ECG COMPLETEon 01-15-2025 ECG COMPLETE Normal [facility] Magnesium SerPl-mCncon 01-15 Magnesium [Mass/Vol] 2.7 mg/dL High 1.7-2.3 [facility] Comment on above: Order Comment: Speci men Type: BLOOD SPECIMENOrdering Facility: [facility] Address: [address] [place] [address] Performed By: #### 2 4323-8, , 7 ####[facility] [id number] [place] [id number] [place] NUTRITIONon 01-15-2025 NUTRITION Normal [facility] POTASSIUMon 01-15-2025 Potassium [Moles/Vol] 4.0 mmol/L Normal 3.7-5.1 [facility] Comment on above: Order Comment: Speci men Type: BLOOD SPECIMENOrdering Facility: [facility] Address: [address] [place] [address] Performed By: #### K 1 ####[facility] LABCLIA [id number] [place] [address] [place] Phosphate SerPl-mCncon 01-15 Phosphate [Mass/Vol] 4.0 mg/dL Normal 2.7-4.8 [facility] Comment on above: Order Comment: Speci men Type: BLOOD SPECIMENOrdering Facility: [facility] Address: [address] [place] [address] Performed By: #### 2 4323-8, 02891-6, 2777-1 ####[facility] LABIA [id number] [address] [place] THERAPY NTon 01-15-2025 THERAPY NT Normal [facility] CASE MANAGEMon 01-14-2025 CASE MANAGEM Normal [facility] CBC panel Auto (Bld)on 01-14 Erythrocyte distribution width (RBC) [Ratio] 14.6 % Normal 11.5-15.0 [facility] Comment on above: Order Comment: Speci men Type: BLOOD SPECIMENOrdering Facility: [facility] Address: [address] [place] [address] Performed By: #### 5 8410-2 ####[facility] LABIA [id number] [place] [address] [place] Hematocrit (Bld) [Volume fraction] 28.2 % Low 39.0-51.0 [facility] Comment on above: Order Comment: Speci men Type: BLOOD SPECIMENOrdering Facility: [facility] Address: [address] [place] [address] Performed By: #### 5 8410-2 ####[facility] LABCLIA [id number] [place] [address] [place] Hemoglobin (Bld) [Mass/Vol] 8.9 g/dL Low 13.0-17.0 [facility] Comment on above: Order Comment: Speci men Type: BLOOD SPECIMENOrdering Facility: [facility] Address: [address] [place] [address] Performed By: #### 5 8410-2 ####[facility] LABIA [id number] [place] [address] [place] MCH (RBC) [Entitic mass] 31.9 pg Normal 26.0-34.0 [facility] Comment on above: Order Comment: Speci men Type: BLOOD SPECIMENOrdering Facility: [facility] Address: [address] [place] [address] Performed By: #### 5 8410-2 ####[facility] LABIA [id number] [place] [address] [place] MCHC (RBC) [Mass/Vol] 31.6 g/dL Normal 30.5-36.0 [facility] Comment on above: Order Comment: Speci men Type: BLOOD SPECIMENOrdering Facility: [facility] Address: [address] [place] [address] Performed By: #### 5 8410-2 ####[facility] LABIA [id number] [place] [address] [place] MCV (RBC) [Entitic vol] 101.1 fL High 80.0-100.0 [facility] Comment on above: Order Comment: Speci men Type: BLOOD SPECIMENOrdering Facility: [facility] Address: [address] [place] [address] Performed By: #### 5 8410-2 ####[facility] LABIA [id number] [place] [address] [place] Nucleated RBC (Bld) [#/Vol] 10*3/uL Normal <0.01 [facility] Comment on above: Order Comment: Speci men Type: BLOOD SPECIMENOrdering Facility: [facility] Address: [address] [place] [address] Performed By: #### 5 8410-2 ####[facility] LABCLIA [id number] [address] [place] [address] [place] Platelet mean volume (Bld) [Entitic vol] 11.0 fL Normal 9.0-12.7 [facility] Comment on above: Order Comment: Speci men Type: BLOOD SPECIMENOrdering Facility: [facility] Address: [address] [place] [address] Performed By: #### 5 8410-2 ####[facility] LABCLIA [id number] [address] [place] [address] [place] Platelets (Bld) [#/Vol] 147 10*3/uL Low 150-400 [facility] Comment on above: Order Comment: Speci men Type: BLOOD SPECIMENOrdering Facility: [facility] Address: [address] [place] [address] Performed By: #### 5 8410-2 ####[facility] LABIA [id number] [address] [place] [address] [place] RBC (Bld) [#/Vol] 2.79 10*6/uL Low 4.20-6.[address] [facility] Comment on above: Order Comment: Speci men Type: BLOOD SPECIMENOrdering Facility: [facility] Address: [address] [place] [address] Performed By: #### 5 8410-2 ####[facility] LABCLIA [id number] [address] [address] [place] WBC (Bld) [#/Vol] 6.76 10*3/uL Normal 3.70-11.[address] [facility] Comment on above: Order Comment: Speci men Type: BLOOD SPECIMENOrdering Facility: [facility] Address: [address] [place] [address] Performed By: #### 5 8410-2 ####[facility] LABCLIA [id number] [address] [address] [place] CONSULT PROGon 01-14-2025 CONSULT PROG Normal [facility] CONSULT PROG Normal [facility] CONSULT PROG Normal [facility] Comprehensive metabolic 2000 panelon 01-14-2025 Albumin [Mass/Vol] 3.6 g/dL Low 3.9-4.9 [facility] Comment on above: Order Comment: Speci men Type: BLOOD SPECIMENOrdering Facility: [facility] Address: [address] [place] [address] Performed By: #### 2 4323-8, , 2776-08 ####[facility] LABCLIA [id number] [place] [address] [place] ALP [Catalytic activity/Vol] 152 U/L High 38-113 [facility] Comment on above: Order Comment: Speci men Type: BLOOD SPECIMENOrdering Facility: [facility] Address: [address] [place] [address] Performed By: #### 2 4323-8, , 2776-08 ####[facility] LABCLIA [id number] [place] [address] [place] ALT [Catalytic activity/Vol] 5 U/L Low 10-54 [facility] Comment on above: Order Comment: Speci men Type: BLOOD SPECIMENOrdering Facility: [facility] Address: [address] [place] [address] Performed By: #### 2 4323-8, , 2776-08 ####[facility] LABCLIA [id number] [place] [id number] [place] Anion gap [Moles/Vol] 13 mmol/L Normal 8-15 [facility] Comment on above: Order Comment: Speci men Type: BLOOD SPECIMENOrdering Facility: [facility] Address: [address] [place] [address] Performed By: #### 2 4323-8, , 2776- ####[facility] LABCLIA [id number] [address] [address] [place] AST [Catalytic activity/Vol] 25 U/L Normal 14-40 [facility] Comment on above: Order Comment: Speci men Type: BLOOD SPECIMENOrdering Facility: [facility] Address: [address] [place] [address] Performed By: #### 2 4323-8, , 2776-08 ####[facility] LABCLIA [id number] [address] [address] [place] Bilirubin [Mass/Vol] 0.6 mg/dL Normal 0.2-1.3 [facility] Comment on above: Order Comment: Speci men Type: BLOOD SPECIMENOrdering Facility: [facility] Address: [address] [place] [address] Performed By: #### 2 4323-8, , 2776-08 ####[facility] LABCLIA [id number] [place] [id number] [place] Calcium [Mass/Vol] 9.5 mg/dL Normal 8.5-10.2 [facility] Comment on above: Order Comment: Speci men Type: BLOOD SPECIMENOrdering Facility: [facility] Address: [address] [place] [address] Performed By: #### 2 4323-8, , 2776-08 ####[facility] LABCLIA [id number] [address] [address] [place] Chloride [Moles/Vol] 95 mmol/L Low 98-107 [facility] Comment on above: Order Comment: Speci men Type: BLOOD SPECIMENOrdering Facility: [facility] Address: [address] [place], [place] [address] Performed By: #### 2 4323-8, , 2776-08 ####[facility] LABCLIA [id number] [place] [address] [place] CO2 [Moles/Vol] 30 mmol/L Normal 22-30 [facility] Comment on above: Order Comment: Vandana aguero Type: BLOOD SPECIMENOrdering Facility: [facility] Address: [address] [place] [address] Performed By: #### 2 4323-8, 25989-0, 2776- ####[facility] LABCLIA [id number] [place] [id number] [place] Creatinine [Mass/Vol] 5.13 mg/dL High 0.73-1.22 [facility] Comment on above: Order Comment: Vandana aguero Type: BLOOD SPECIMENOrdering Facility: [facility] Address: [address] [place] [address] Performed By: #### 2 4323-8, , 2776-08 ####[facility] LABIA [id number] [place] [address] [place] Creatinine and Glomerular filtration rate.predicted panel (S/P/Bld) 11 mL/min/1.73m??? Low >=60 [facility] Comment on above: Order Comment: Vandana aguero Type: BLOOD SPECIMENOrdering Facility: [facility] Address: [address] [place] [address] Result Comment: Maggy mated Glomerular Filtration Rate (eGFR) is calculated using the 2020 CKD-EPI creatinine equation. This equation utilizes serum creatinine, sex, and age as parameters. The creatinine assay has traceable calibration to isotope dilution-mass spectrometry. Refer to KDIGO guidelines for clinical interpretation. In patients with unstable renal function, e.g. those with acute kidney injury, the eGFR may not accurately reflect actual GFR. Performed By: #### 2 4323-8, 54036-8, 2776-08 ####[facility] LABCLIA [id number] [place] [id number] [place] Glucose [Mass/Vol] 286 mg/dL High 74-99 [facility] Comment on above: Order Comment: Speci men Type: BLOOD SPECIMENOrdering Facility: [facility] Address: [address] [place], [place] [address] Result Comment: The [place] [employer] (ADA) provides guidance for cutoff values for fasting glucose and random glucose. The ADA defines fasting as no caloric intake for at least 8 hours. Fasting plasma glucose results between 100 to 125 mg/dL indicate increased risk for diabetes (prediabetes).Fasting plasma glucose results greater than or equal to 126 mg/dL meet the criteria for diagnosis of diabetes. In the absence of unequivocal hyperglycemia, results should be confirmed by repeat testing. In a patient with classic symptoms of hyperglycemia or hyperglycemic crisis, random plasma glucose results greater than or equal to 200 mg/dL meet the criteria for diagnosis of diabetes.Reference: Standards of Medical Care in Diabetes 2016, [place] [employer]. Diabetes Care. 2016.39(Suppl 1). Performed By: #### 2 4323-8, , 2776- ####[facility] LABCLIA [id number] [place] [address] [place] Potassium [Moles/Vol] 3.9 mmol/L Normal 3.7-5.1 [facility] Comment on above: Order Comment: Vandana more Type: BLOOD SPECIMENOrdering Facility: [facility] Address: [address] [place] [address] Performed By: #### 2 4323-8, , 2776-08 ####[facility] LABCLIA [id number] [place] [id number] [place] Protein [Mass/Vol] 6.6 g/dL Normal 6.3-8.0 [facility] Comment on above: Order Comment: Vandana aguero Type: BLOOD SPECIMENOrdering Facility: [facility] Address: [address] [place], [place] [address] Performed By: #### 2 4323-8, , 2776-08 ####[facility] LABCLIA [id number] [facility] [address] [address] [place] Sodium [Moles/Vol] 138 mmol/L Normal 136-144 [facility] Comment on above: Order Comment: Speci men Type: BLOOD SPECIMENOrdering Facility: [facility] Address: [address] [place] [address] Performed By: #### 2 4323-8, , 2776-08 ####[facility] LABCLIA [id number] [place] [address] [place] Urea nitrogen [Mass/Vol] 90 mg/dL High 9-24 [facility] Comment on above: Order Comment: Speci men Type: BLOOD SPECIMENOrdering Facility: [facility] Address: [address] [place] [address] Performed By: #### 2 4323-8, , 2776-08 ####[facility] LABCLIA [id number] [place] [address] [place] ECG COMPLETEon 01-14-2025 ECG COMPLETE Normal [facility] Magnesium SerPl-mCncon 01-14 Magnesium [Mass/Vol] 2.6 mg/dL High 1.7-2.3 [facility] Comment on above: Order Comment: Speci men Type: BLOOD SPECIMENOrdering Facility: [facility] Address: [address] [place] [address] Performed By: #### 2 4323-8, , 2776-08 ####[facility] LABCLIA [id number] [place] [address] [place] Phosphate SerPl-mCncon 01-14 Phosphate [Mass/Vol] 4.2 mg/dL Normal 2.7-4.8 [facility] Comment on above: Order Comment: Speci men Type: BLOOD SPECIMENOrdering Facility: [facility] Address: [address] [place] [address] Performed By: #### 2 4323-8, , 2776-08 ####[facility] LABCLIA [id number] [address] [address] [place] THERAPY NTon 01-14-2025 THERAPY NT Normal [facility] THERAPY NT Normal [facility] THERAPY NT Normal [facility] XR CHEST 2V FRONTAL/LATon XR CHEST 2V FRONTAL/LAT Normal [facility] BRIEF OP NOTon 01-13-2025 BRIEF OP NOT Normal [facility] CBC panel Auto (Bld)on 01-13 Erythrocyte distribution width (RBC) [Ratio] 14.7 % Normal 11.5-15.0 [facility] Comment on above: Order Comment: Speci men Type: BLOOD SPECIMENOrdering Facility: [facility] Address: [address] [place] [address] Performed By: #### 5 8410-2 ####[facility] [id number] [place] [address] [place] Hematocrit (Bld) [Volume fraction] 28.6 % Low 39.0-51.0 [facility] Comment on above: Order Comment: Speci men Type: BLOOD SPECIMENOrdering Facility: [facility] Address: [address] [place] [address] Performed By: #### 5 8410-2 ####[facility] LABIA [id number] [place] [address] [place] Hemoglobin (Bld) [Mass/Vol] 9.2 g/dL Low 13.0-17.0 [facility] Comment on above: Order Comment: Speci men Type: BLOOD SPECIMENOrdering Facility: [facility] Address: [address] [place] [address] Performed By: #### 5 8410-2 ####[facility] LABIA [id number] [place] [address] [place] MCH (RBC) [Entitic mass] 31.7 pg Normal 26.0-34.0 [facility] Comment on above: Order Comment: Speci men Type: BLOOD SPECIMENOrdering Facility: [facility] Address: [address] [place] [address] Performed By: #### 5 8410-2 ####[facility] LABIA [id number] [place] [address] [place] MCHC (RBC) [Mass/Vol] 32.2 g/dL Normal 30.5-36.0 [facility] Comment on above: Order Comment: Speci men Type: BLOOD SPECIMENOrdering Facility: [facility] Address: [address] [place] [address] Performed By: #### 5 8410-2 ####[facility] LABIA [id number] [place] [address] [place] MCV (RBC) [Entitic vol] 98.6 fL Normal 80.0-100.0 [facility] Comment on above: Order Comment: Speci men Type: BLOOD SPECIMENOrdering Facility: [facility] Address: [address] [place] [address] Performed By: #### 5 8410-2 ####[facility] LABIA [id number] [place] [address] [place] Nucleated RBC (Bld) [#/Vol] 10*3/uL Normal <0.01 [facility] Comment on above: Order Comment: Speci men Type: BLOOD SPECIMENOrdering Facility: [facility] Address: [address] [place] [address] Performed By: #### 5 8410-2 ####[facility] LABIA [id number] [place] [address] [place] Platelet mean volume (Bld) [Entitic vol] 11.0 fL Normal 9.0-12.7 [facility] Comment on above: Order Comment: Speci men Type: BLOOD SPECIMENOrdering Facility: [facility] Address: [address] [place] [address] Performed By: #### 5 8410-2 ####[facility] LABCLIA [id number] [place] [address] [place] Platelets (Bld) [#/Vol] 168 10*3/uL Normal 150-400 [facility] Comment on above: Order Comment: Speci men Type: BLOOD SPECIMENOrdering Facility: [facility] Address: [address] [place] [address] Performed By: #### 5 8410-2 ####[facility] [id number] [place] [address] [place] RBC (Bld) [#/Vol] 2.90 10*6/uL Low 4.20-6.[address] [facility] Comment on above: Order Comment: Speci men Type: BLOOD SPECIMENOrdering Facility: [facility] Address: [address] [place] [address] Performed By: #### 5 8410-2 ####[facility] [id number] [place] [address] [place] WBC (Bld) [#/Vol] 11.09 10*3/uL High 3.70-11.00 [facility] Comment on above: Order Comment: Speci men Type: BLOOD SPECIMENOrdering Facility: [facility] Address: [address] [place] [address] Performed By: #### 5 8410-2 ####[facility] [id number] [place] [address] [place] CONSULT PROGon 01-13-2025 CONSULT PROG Normal [facility] Comprehensive metabolic 2000 panelon 01-13-2025 Albumin [Mass/Vol] 3.3 g/dL Low 3.9-4.9 [facility] Comment on above: Order Comment: Speci men Type: BLOOD SPECIMENOrdering Facility: [facility] Address: [address] [place] [address] Performed By: #### 2 4323-8 ####[facility] LABIA [id number] [address] [place] [address] [place] ALP [Catalytic activity/Vol] 136 U/L High 38-113 [facility] Comment on above: Order Comment: Speci men Type: BLOOD SPECIMENOrdering Facility: [facility] Address: [address] [place] [address] Performed By: #### 2 4323-8 ####[facility] LABCLIA [id number] [place] [id number] [place] ALT [Catalytic activity/Vol] 6 U/L Low 10-54 [facility] Comment on above: Order Comment: Speci men Type: BLOOD SPECIMENOrdering Facility: [facility] Address: [address] [place] [address] Performed By: #### 2 4323-8 ####[facility] LABCLIA [id number] [place] [address] [place] Anion gap [Moles/Vol] 14 mmol/L Normal 8-15 [facility] Comment on above: Order Comment: Speci men Type: BLOOD SPECIMENOrdering Facility: [facility] Address: [address] [place] [address] Performed By: #### 2 4323-8 ####[facility] LABCLIA [id number] [place] [address] [place] AST [Catalytic activity/Vol] 25 U/L Normal 14-40 [facility] Comment on above: Order Comment: Speci men Type: BLOOD SPECIMENOrdering Facility: [facility] Address: [address] [place] [address] Performed By: #### 2 4323-8 ####[facility] LABCLIA [id number] [place] [id number] [place] Bilirubin [Mass/Vol] 0.5 mg/dL Normal 0.2-1.3 [facility] Comment on above: Order Comment: Speci men Type: BLOOD SPECIMENOrdering Facility: [facility] Address: [address] [place] [address] Performed By: #### 2 4323-8 ####[facility] LABCLIA [id number] [address] [place] [address] [place] Calcium [Mass/Vol] 9.7 mg/dL Normal 8.5-10.2 [facility] Comment on above: Order Comment: Speci men Type: BLOOD SPECIMENOrdering Facility: [facility] Address: [address] [place], [place] [address] Performed By: #### 2 4323-8 ####[facility] LABCLIA [id number] [address] [place] [address] [place] Chloride [Moles/Vol] 98 mmol/L Normal 98-107 [facility] Comment on above: Order Comment: Speci men Type: BLOOD SPECIMENOrdering Facility: [facility] Address: [address] [place], [place] [address] Performed By: #### 2 4323-8 ####[facility] LABCLIA [id number] [facility] [address] [place] [address] [place] CO2 [Moles/Vol] 29 mmol/L Normal 22-30 [facility] Comment on above: Order Comment: Speci men Type: BLOOD SPECIMENOrdering Facility: [facility] Address: [address] [place] [address] Performed By: #### 2 4323-8 ####[facility] LABCLIA [id number] [facility] [address] [place] [address] [place] Creatinine [Mass/Vol] 5.26 mg/dL High 0.73-1.22 [facility] Comment on above: Order Comment: Speci men Type: BLOOD SPECIMENOrdering Facility: [facility] Address: [address] [place] [address] Performed By: #### 2 4323-8 ####[facility] LABCLIA [id number] [facility] [place] [address] [place] Creatinine and Glomerular filtration rate.predicted panel (S/P/Bld) 11 mL/min/1.73m??? Low >=60 [facility] Comment on above: Order Comment: Vandana aguero Type: BLOOD SPECIMENOrdering Facility: [facility] Address: [address] [place] [address] Result Comment: Maggy mated Glomerular Filtration Rate (eGFR) is calculated using the 2020 CKD-EPI creatinine equation. This equation utilizes serum creatinine, sex, and age as parameters. The creatinine assay has traceable calibration to isotope dilution-mass spectrometry. Refer to KDIGO guidelines for clinical interpretation. In patients with unstable renal function, e.g. those with acute kidney injury, the eGFR may not accurately reflect actual GFR. Performed By: #### 2 4323-8 ####[facility] LABCLIA [id number] [place] [address] [place] Glucose [Mass/Vol] 108 mg/dL High 74-99 [facility] Comment on above: Order Comment: Vandana aguero Type: BLOOD SPECIMENOrdering Facility: [facility] Address: [address] [place] [address] Result Comment: The [place] [employer] (ADA) provides guidance for cutoff values for fasting glucose and random glucose. The ADA defines fasting as no caloric intake for at least 8 hours. Fasting plasma glucose results between 100 to 125 mg/dL indicate increased risk for diabetes (prediabetes).Fasting plasma glucose results greater than or equal to 126 mg/dL meet the criteria for diagnosis of diabetes. In the absence of unequivocal hyperglycemia, results should be confirmed by repeat testing. In a patient with classic symptoms of hyperglycemia or hyperglycemic crisis, random plasma glucose results greater than or equal to 200 mg/dL meet the criteria for diagnosis of diabetes.Reference: Standards of Medical Care in Diabetes 2016, [place] [employer]. Diabetes Care. 2016.39(Suppl 1). Performed By: #### 2 4323-8 ####[facility]IA [id number] [place] [address] [place] Potassium [Moles/Vol] 4.0 mmol/L Normal 3.7-5.1 [facility] Comment on above: Order Comment: Speci men Type: BLOOD SPECIMENOrdering Facility: [facility] Address: [address] [place], [place] [address] Performed By: #### 2 4323-8 ####[facility] LABCLIA [id number] [address] [address] [place] Protein [Mass/Vol] 6.7 g/dL Normal 6.3-8.0 [facility] Comment on above: Order Comment: Speci men Type: BLOOD SPECIMENOrdering Facility: [facility] Address: [address] [place], [place] [address] Performed By: #### 2 4323-8 ####[facility] LABCLIA [id number] [place] [id number] [place] Sodium [Moles/Vol] 141 mmol/L Normal 136-144 [facility] Comment on above: Order Comment: Speci men Type: BLOOD SPECIMENOrdering Facility: [facility] Address: [address] [place], [place] [address] Performed By: #### 2 4323-8 ####[facility] LABCLIA [id number] [place] [id number] [place] Urea nitrogen [Mass/Vol] 78 mg/dL High 9-24 [facility] Comment on above: Order Comment: Speci men Type: BLOOD SPECIMENOrdering Facility: [facility] Address: [address] [place], [place] [address] Performed By: #### 2 4323-8 ####[facility] LABCLIA [id number] [address] [address] [place] AVA07un 01-13-2025 ECG01 Normal [facility] NURSING PROGon 01-13-2025 NURSING PROG Normal [facility] POTASSIUMon 01-13-2025 Potassium [Moles/Vol] 4.1 mmol/L Normal 3.7-5.1 [facility] Comment on above: Order Comment: Speci men Type: BLOOD SPECIMENOrdering Facility: [facility] Address: [address] [place] [address] Performed By: #### K 1 ####[facility] LABCLIA [id number] [place] [id number] [place] THERAPY NTon 01-13-2025 THERAPY NT Normal [facility] THERAPY NT Normal [facility] XR CHEST 1V FRONTAL PORTon 0 01-13-2025 XR CHEST 1V FRONTAL PORT Normal [facility] CBC panel Auto (Bld)on 01-12 Erythrocyte distribution width (RBC) [Ratio] 14.7 % Normal 11.5-15.0 [facility] Comment on above: Order Comment: Speci men Type: BLOOD SPECIMENOrdering Facility: [facility] Address: [address] [place] [address] Performed By: #### 5 8410-2 ####[facility] LABCLIA [id number] [place] [address] [place] Hematocrit (Bld) [Volume fraction] 28.4 % Low 39.0-51.0 [facility] Comment on above: Order Comment: Speci men Type: BLOOD SPECIMENOrdering Facility: [facility] Address: [address] [place] [address] Performed By: #### 5 8410-2 ####[facility] LABCLIA [id number] [place] [id number] [place] Hemoglobin (Bld) [Mass/Vol] 8.9 g/dL Low 13.0-17.0 [facility] Comment on above: Order Comment: Speci men Type: BLOOD SPECIMENOrdering Facility: [facility] Address: [address] [place] [address] Performed By: #### 5 8410-2 ####[facility] LABCLIA [id number] [place] [id number] [place] MCH (RBC) [Entitic mass] 31.8 pg Normal 26.0-34.0 [facility] Comment on above: Order Comment: Speci men Type: BLOOD SPECIMENOrdering Facility: [facility] Address: [address] [place] [address] Performed By: #### 5 8410-2 ####[facility] LABIA [id number] [place] [address] [place] MCHC (RBC) [Mass/Vol] 31.3 g/dL Normal 30.5-36.0 [facility] Comment on above: Order Comment: Speci men Type: BLOOD SPECIMENOrdering Facility: [facility] Address: [address] [place] [address] Performed By: #### 5 8410-2 ####[facility] LABIA [id number] [place] [address] [place] MCV (RBC) [Entitic vol] 101.4 fL High 80.0-100.0 [facility] Comment on above: Order Comment: Speci men Type: BLOOD SPECIMENOrdering Facility: [facility] Address: [address] [place] [address] Performed By: #### 5 8410-2 ####[facility] LABIA [id number] [place] [address] [place] Nucleated RBC (Bld) [#/Vol] 10*3/uL Normal <0.01 [facility] Comment on above: Order Comment: Speci men Type: BLOOD SPECIMENOrdering Facility: [facility] Address: [address] [place] [address] Performed By: #### 5 8410-2 ####[facility] LABIA [id number] [place] [address] [place] Platelet mean volume (Bld) [Entitic vol] 11.4 fL Normal 9.0-12.7 [facility] Comment on above: Order Comment: Speci men Type: BLOOD SPECIMENOrdering Facility: [facility] Address: [address] [place] [address] Performed By: #### 5 8410-2 ####[facility] LABCLIA [id number] [address] [address] [place] Platelets (Bld) [#/Vol] 162 10*3/uL Normal 150-400 [facility] Comment on above: Order Comment: Speci men Type: BLOOD SPECIMENOrdering Facility: [facility] Address: [address] [place] [address] Performed By: #### 5 8410-2 ####[facility]IA [id number] [address] [address] [place] RBC (Bld) [#/Vol] 2.80 10*6/uL Low 4.20-6.[address] [facility] Comment on above: Order Comment: Speci men Type: BLOOD SPECIMENOrdering Facility: [facility] Address: [address] [place] [address] Performed By: #### 5 8410-2 ####[facility] LABIA [id number] [address] [address] [place] WBC (Bld) [#/Vol] 11.89 10*3/uL High 3.70-11.00 [facility] Comment on above: Order Comment: Speci men Type: BLOOD SPECIMENOrdering Facility: [facility] Address: [address] [place] [address] Performed By: #### 5 8410-2 ####[facility]IA [id number] [address] [address] [place] CONSULT PROGon 01-12-2025 CONSULT PROG Normal [facility] CONSULT PROG Normal [facility] Comprehensive metabolic 2000 panelon 01-12-2025 Albumin [Mass/Vol] 3.7 g/dL Low 3.9-4.9 [facility] Comment on above: Order Comment: Speci men Type: BLOOD SPECIMENOrdering Facility: [facility] Address: [address] [place] [address] Performed By: #### 2 4323-8 ####[facility] LABCLIA [id number] [facility] [address], [place] [address] [place] ALP [Catalytic activity/Vol] 159 U/L High 38-113 [facility] Comment on above: Order Comment: Speci men Type: BLOOD SPECIMENOrdering Facility: [facility] Address: [address] [place] [address] Performed By: #### 2 4323-8 ####[facility] LABCLIA [id number] [facility] [address], [facility] [address] [place] ALT [Catalytic activity/Vol] 5 U/L Low 10-54 [facility] Comment on above: Order Comment: Speci men Type: BLOOD SPECIMENOrdering Facility: [facility] Address: [address] [place] [address] Performed By: #### 2 4323-8 ####[facility] LABCLIA [id number] [address], [place] [address] [place] Anion gap [Moles/Vol] 17 mmol/L High 8-15 [facility] Comment on above: Order Comment: Speci men Type: BLOOD SPECIMENOrdering Facility: [facility] Address: [address] [place] [address] Performed By: #### 2 4323-8 ####[facility] LABCLIA [id number] [place] [address] [place] AST [Catalytic activity/Vol] 26 U/L Normal 14-40 [facility] Comment on above: Order Comment: Speci men Type: BLOOD SPECIMENOrdering Facility: [facility] Address: [address] [place] [address] Performed By: #### 2 4323-8 ####[facility] LABCLIA [id number] [place] [id number] [place] Bilirubin [Mass/Vol] 0.6 mg/dL Normal 0.2-1.3 [facility] Comment on above: Order Comment: Speci men Type: BLOOD SPECIMENOrdering Facility: [facility] Address: [address] [place] [address] Performed By: #### 2 4323-8 ####[facility] LABCLIA [id number] [address] [address] [place] Calcium [Mass/Vol] 10.0 mg/dL Normal 8.5-10.2 [facility] Comment on above: Order Comment: Speci men Type: BLOOD SPECIMENOrdering Facility: [facility] Address: [address] [place] [address] Performed By: #### 2 4323-8 ####[facility] LABCLIA [id number] [facility] [place] [id number] [place] Chloride [Moles/Vol] 95 mmol/L Low 98-107 [facility] Comment on above: Order Comment: Speci men Type: BLOOD SPECIMENOrdering Facility: [facility] Address: [address] [place] [address] Performed By: #### 2 4323-8 ####[facility] LABCLIA [id number] [place] [id number] [place] CO2 [Moles/Vol] 28 mmol/L Normal 22-30 [facility] Comment on above: Order Comment: Speci men Type: BLOOD SPECIMENOrdering Facility: [facility] Address: [address] [place] [address] Performed By: #### 2 4323-8 ####[facility] LABCLIA [id number] [facility] [place] [id number] [place] Creatinine [Mass/Vol] 5.03 mg/dL High 0.73-1.22 [facility] Comment on above: Order Comment: Speci men Type: BLOOD SPECIMENOrdering Facility: [facility] Address: [address] [place], [place] [address] Performed By: #### 2 4323-8 ####[facility] LABCLIA [id number] [place] [address] [place] Creatinine and Glomerular filtration rate.predicted panel (S/P/Bld) 11 mL/min/1.73m??? Low >=60 [facility] Comment on above: Order Comment: Vandana aguero Type: BLOOD SPECIMENOrdering Facility: [facility] Address: [address] [place] [address] Result Comment: Maggy mated Glomerular Filtration Rate (eGFR) is calculated using the 2020 CKD-EPI creatinine equation. This equation utilizes serum creatinine, sex, and age as parameters. The creatinine assay has traceable calibration to isotope dilution-mass spectrometry. Refer to KDIGO guidelines for clinical interpretation. In patients with unstable renal function, e.g. those with acute kidney injury, the eGFR may not accurately reflect actual GFR. Performed By: #### 2 4323-8 ####[facility] LABIA [id number] [place] [address] [place] Glucose [Mass/Vol] 156 mg/dL High 74-99 [facility] Comment on above: Order Comment: Vandana aguero Type: BLOOD SPECIMENOrdering Facility: [facility] Address: [address] [place] [address] Result Comment: The [place] Diabetes [employer] (ADA) provides guidance for cutoff values for fasting glucose and random glucose. The ADA defines fasting as no caloric intake for at least 8 hours. Fasting plasma glucose results between 100 to 125 mg/dL indicate increased risk for diabetes (prediabetes).Fasting plasma glucose results greater than or equal to 126 mg/dL meet the criteria for diagnosis of diabetes. In the absence of unequivocal hyperglycemia, results should be confirmed by repeat testing. In a patient with classic symptoms of hyperglycemia or hyperglycemic crisis, random plasma glucose results greater than or equal to 200 mg/dL meet the criteria for diagnosis of diabetes.Reference: Standards of Medical Care in Diabetes 2016, [place] [employer]. Diabetes Care. 2016.39(Suppl 1). Performed By: #### 2 4323-8 ####[facility] LABCLIA [id number] [place] [id number] [place] Potassium [Moles/Vol] 4.1 mmol/L Normal 3.7-5.1 [facility] Comment on above: Order Comment: Speci men Type: BLOOD SPECIMENOrdering Facility: [facility] Address: [address] [place] [address] Performed By: #### 2 4323-8 ####[facility] LABCLIA [id number] [place] [address] [place] Protein [Mass/Vol] 7.0 g/dL Normal 6.3-8.0 [facility] Comment on above: Order Comment: Speci men Type: BLOOD SPECIMENOrdering Facility: [facility] Address: [address] [place] [address] Performed By: #### 2 4323-8 ####[facility] LABIA [id number] [place] [address] [place] Sodium [Moles/Vol] 140 mmol/L Normal 136-144 [facility] Comment on above: Order Comment: Speci men Type: BLOOD SPECIMENOrdering Facility: [facility] Address: [address] [place] [address] Performed By: #### 2 4323-8 ####[facility] LABCLIA [id number] [place] [id number] [place] Urea nitrogen [Mass/Vol] 76 mg/dL High 9-24 [facility] Comment on above: Order Comment: Speci men Type: BLOOD SPECIMENOrdering Facility: [facility] Address: [address] [place] [address] Performed By: #### 2 4323-8 ####[facility] LABCLIA [id number] [place] [id number] [place] Urinalysis complete panel (U )on 01-12-2025 Bacteria LM.HPF (Urine sed) [#/Area] Negative Normal Negative [facility] Comment on above: Order Comment: Speci men Type: URINE SPECIMENOrdering Facility: [facility] Address: [address] [place] [address] Performed By: #### 2 4356-8 ####[facility] LABCLIA [id number] [address], [facility] [address] [place] Bilirubin Ql (U) Negative Normal Negative [facility] Comment on above: Order Comment: Speci men Type: URINE SPECIMENOrdering Facility: [facility] Address: [address] [place] [address] Performed By: #### 2 4356-8 ####[facility] LABCLIA [id number] [place] [address] [place] Clarity (Unsp spec) Clear Normal Clear [facility] Comment on above: Order Comment: Speci men Type: URINE SPECIMENOrdering Facility: [facility] Address: [address] [place] [address] Performed By: #### 2 4356-8 ####[facility] LABCLIA [id number] [place] [address] [place] Color (U) Dark Yellow Abnormal Yellow [facility] Comment on above: Order Comment: Speci men Type: URINE SPECIMENOrdering Facility: [facility] Address: [address] [place] [address] Performed By: #### 2 4356-8 ####[facility] LABCLIA [id number] [place] [id number] [place] Epithelial cells LM.HPF (Urine sed) [#/Area] None Seen Normal [facility] Comment on above: Order Comment: Speci men Type: URINE SPECIMENOrdering Facility: [facility] Address: [address] [place] [address] Performed By: #### 2 4356-8 ####[facility] LABCLIA [id number] [place] [id number] [place] Glucose Test strip (U) [Mass/Vol] Negative Normal Negative [facility] Comment on above: Order Comment: Speci men Type: URINE SPECIMENOrdering Facility: [facility] Address: [address] [place] [address] Performed By: #### 2 4356-8 ####[facility] LABCLIA [id number] [address] [place] [address] [place] Hemoglobin Ql (U) Negative Normal Negative [facility] Comment on above: Order Comment: Speci men Type: URINE SPECIMENOrdering Facility: [facility] Address: [address] [place] [address] Performed By: #### 2 4356-8 ####[facility] LABCLIA [id number] [address], [place] [address] [place] Hyaline casts (Urine sed) [#/Area] 4-10 /LPF Abnormal 0 /LPF [facility] Comment on above: Order Comment: Speci men Type: URINE SPECIMENOrdering Facility: [facility] Address: [address] [place] [address] Performed By: #### 2 4356-8 ####[facility] LABCLIA [id number] [place] [address] [place] Ketones Ql (U) Negative Normal Negative [facility] Comment on above: Order Comment: Speci men Type: URINE SPECIMENOrdering Facility: [facility] Address: [address] [place] [address] Performed By: #### 2 4356-8 ####[facility] LABCLIA [id number] [address], [facility] [address] [place] Leukocyte esterase Test strip Ql (U) Negative Normal Negative [facility] Comment on above: Order Comment: Speci men Type: URINE SPECIMENOrdering Facility: [facility] Address: [address] [place] [address] Performed By: #### 2 4356-8 ####[facility] LABCLIA [id number] [place] [address] [place] Nitrite Ql (U) Negative Normal Negative [facility] Comment on above: Order Comment: Speci men Type: URINE SPECIMENOrdering Facility: [facility] Address: [address] [place] [address] Performed By: #### 2 4356-8 ####[facility] LABIA [id number] [place] [address] [place] pH (U) 5.0 [pH] Normal <8.5 [facility] Comment on above: Order Comment: Speci men Type: URINE SPECIMENOrdering Facility: [facility] Address: [address] [place] [address] Performed By: #### 2 4356-8 ####[facility] LABIA [id number] [place] [address] [place] Protein (U) [Mass/Vol] 2+ Abnormal Negative Cl [facility] Comment on above: Order Comment: Speci men Type: URINE SPECIMENOrdering Facility: [facility] Address: [address] [place] [address] Performed By: #### 2 4356-8 ####[facility] LABIA [id number] [place] [address] [place] RBC LM.HPF (Urine sed) [#/Area] 0-2 /HPF Normal 0-2 /HPF [facility] Comment on above: Order Comment: Speci men Type: URINE SPECIMENOrdering Facility: [facility] Address: [address] [place] [address] Performed By: #### 2 4356-8 ####[facility] LABIA [id number] [place] [address] [place] Specific gravity (U) [Rel density] 1.017 Normal 1.005-1.030 [facility] Comment on above: Order Comment: Speci men Type: URINE SPECIMENOrdering Facility: [facility] Address: [address] [place], [place] [address] Performed By: #### 2 4356-8 ####[facility]IA [id number] [place] [address] [place] Urobilinogen Ql (U) 0.2 EU/dL Normal 0.2-1.0 EU/dL Cl [facility] Comment on above: Order Comment: Speci men Type: URINE SPECIMENOrdering Facility: [facility] Address: [address] [place] [address] Performed By: #### 2 4356-8 ####[facility]IA [id number] [place] [address] [place] WBC LM.HPF (Urine sed) [#/Area] 0-5 /HPF Normal 0-5 /HPF [facility] Comment on above: Order Comment: Speci men Type: URINE SPECIMENOrdering Facility: [facility] Address: [address] [place] [address] Performed By: #### 2 4356-8 ####[facility] [id number] [place] [address] [place] XR CHEST 1V FRONTAL PORTon 0 01-12-2025 XR CHEST 1V FRONTAL PORT Normal [facility] CBC panel Auto (Bld)on 01-11 Erythrocyte distribution width (RBC) [Ratio] 14.8 % Normal 11.5-15.0 [facility] Comment on above: Order Comment: Speci men Type: BLOOD SPECIMENOrdering Facility: [facility] Address: [address] [place] [address] Performed By: #### 5 8410-2 ####[facility] [id number] [place] [address] [place] Hematocrit (Bld) [Volume fraction] 29.1 % Low 39.0-51.0 [facility] Comment on above: Order Comment: Speci men Type: BLOOD SPECIMENOrdering Facility: [facility] Address: [address] [place], [place] [address] Performed By: #### 5 8410-2 ####[facility]IA [id number] [place] [address] [place] Hemoglobin (Bld) [Mass/Vol] 9.1 g/dL Low 13.0-17.0 [facility] Comment on above: Order Comment: Speci men Type: BLOOD SPECIMENOrdering Facility: [facility] Address: [address] [place] [address] Performed By: #### 5 8410-2 ####[facility]IA [id number] [place] [address] [place] MCH (RBC) [Entitic mass] 31.5 pg Normal 26.0-34.0 [facility] Comment on above: Order Comment: Speci men Type: BLOOD SPECIMENOrdering Facility: [facility] Address: [address] [place] [address] Performed By: #### 5 8410-2 ####[facility]IA [id number] [place] [address] [place] MCHC (RBC) [Mass/Vol] 31.3 g/dL Normal 30.5-36.0 [facility] Comment on above: Order Comment: Speci men Type: BLOOD SPECIMENOrdering Facility: [facility] Address: [address] [place] [address] Performed By: #### 5 8410-2 ####[facility]IA [id number] [place] [address] [place] MCV (RBC) [Entitic vol] 100.7 fL High 80.0-100.0 [facility] Comment on above: Order Comment: Speci men Type: BLOOD SPECIMENOrdering Facility: [facility] Address: [address] [place] [address] Performed By: #### 5 8410-2 ####[facility]IA [id number] [place] [address] [place] Nucleated RBC (Bld) [#/Vol] 10*3/uL Normal <0.01 [facility] Comment on above: Order Comment: Speci men Type: BLOOD SPECIMENOrdering Facility: [facility] Address: [address] [place] [address] Performed By: #### 5 8410-2 ####[facility] LABCLIA [id number] [place] [address] [place] Platelet mean volume (Bld) [Entitic vol] 11.8 fL Normal 9.0-12.7 [facility] Comment on above: Order Comment: Speci men Type: BLOOD SPECIMENOrdering Facility: [facility] Address: [address] [place] [address] Performed By: #### 5 8410-2 ####[facility] LABCLIA [id number] [place] [address] [place] Platelets (Bld) [#/Vol] 174 10*3/uL Normal 150-400 [facility] Comment on above: Order Comment: Speci men Type: BLOOD SPECIMENOrdering Facility: [facility] Address: [address] [place] [address] Performed By: #### 5 8410-2 ####[facility]IA [id number] [place] [address] [place] RBC (Bld) [#/Vol] 2.89 10*6/uL Low 4.20-6.[address] [facility] Comment on above: Order Comment: Speci men Type: BLOOD SPECIMENOrdering Facility: [facility] Address: [address] [place] [address] Performed By: #### 5 8410-2 ####[facility] LABCLIA [id number] [place] [id number] [place] WBC (Bld) [#/Vol] 11.75 10*3/uL High 3.70-11.00 [facility] Comment on above: Order Comment: Speci men Type: BLOOD SPECIMENOrdering Facility: [facility] Address: [address] [place] [address] Performed By: #### 5 8410-2 ####[facility] LABCLIA [id number] [address] [address] [place] CONSULT PROGon 01-11-2025 CONSULT PROG Normal [facility] Comprehensive metabolic 2000 panelon 01-11-2025 Albumin [Mass/Vol] 3.4 g/dL Low 3.9-4.9 [facility] Comment on above: Order Comment: Speci men Type: BLOOD SPECIMENOrdering Facility: [facility] Address: [address] [place] [address] Performed By: #### 2 4323-8 ####[facility] LABCLIA [id number] [place] [address] [place] ALP [Catalytic activity/Vol] 148 U/L High 38-113 [facility] Comment on above: Order Comment: Speci men Type: BLOOD SPECIMENOrdering Facility: [facility] Address: [address] [place] [address] Performed By: #### 2 4323-8 ####[facility] LABCLIA [id number] [place] [id number] [place] ALT [Catalytic activity/Vol] 7 U/L Low 10-54 [facility] Comment on above: Order Comment: Speci men Type: BLOOD SPECIMENOrdering Facility: [facility] Address: [address] [place] [address] Performed By: #### 2 4323-8 ####[facility] LABCLIA [id number] [place] [id number] [place] Anion gap [Moles/Vol] 15 mmol/L Normal 8-15 [facility] Comment on above: Order Comment: Speci men Type: BLOOD SPECIMENOrdering Facility: [facility] Address: [address] [place] [address] Performed By: #### 2 4323-8 ####[facility] LABCLIA [id number] [address] [address] [place] AST [Catalytic activity/Vol] 30 U/L Normal 14-40 [facility] Comment on above: Order Comment: Speci men Type: BLOOD SPECIMENOrdering Facility: [facility] Address: [address] [place] [address] Performed By: #### 2 4323-8 ####[facility] LABCLIA [id number] [place] [id number] [place] Bilirubin [Mass/Vol] 0.5 mg/dL Normal 0.2-1.3 [facility] Comment on above: Order Comment: Speci men Type: BLOOD SPECIMENOrdering Facility: [facility] Address: [address] [place] [address] Performed By: #### 2 4323-8 ####[facility] LABCLIA [id number] [address] [address] [place] Calcium [Mass/Vol] 9.6 mg/dL Normal 8.5-10.2 [facility] Comment on above: Order Comment: Speci men Type: BLOOD SPECIMENOrdering Facility: [facility] Address: [address] [place] [address] Performed By: #### 2 4323-8 ####[facility] LABCLIA [id number] [address] [place] [address] [place] Chloride [Moles/Vol] 97 mmol/L Low 98-107 [facility] Comment on above: Order Comment: Speci men Type: BLOOD SPECIMENOrdering Facility: [facility] Address: [address] [place], [place] [address] Performed By: #### 2 4323-8 ####[facility] LABCLIA [id number] [address] [place] [address] [place] CO2 [Moles/Vol] 28 mmol/L Normal 22-30 [facility] Comment on above: Order Comment: Speci men Type: BLOOD SPECIMENOrdering Facility: [facility] Address: [address] [place] [address] Performed By: #### 2 4323-8 ####[facility] LABCLIA [id number] [place] [id number] [place] Creatinine [Mass/Vol] 4.74 mg/dL High 0.73-1.22 [facility] Comment on above: Order Comment: Speci men Type: BLOOD SPECIMENOrdering Facility: [facility] Address: [address] [place] [address] Performed By: #### 2 4323-8 ####[facility] LABCLIA [id number] [place] [address] [place] Creatinine and Glomerular filtration rate.predicted panel (S/P/Bld) 12 mL/min/1.73m??? Low >=60 [facility] Comment on above: Order Comment: Speci men Type: BLOOD SPECIMENOrdering Facility: [facility] Address: [address] [place] [address] Result Comment: Maggy mated Glomerular Filtration Rate (eGFR) is calculated using the 2020 CKD-EPI creatinine equation. This equation utilizes serum creatinine, sex, and age as parameters. The creatinine assay has traceable calibration to isotope dilution-mass spectrometry. Refer to KDIGO guidelines for clinical interpretation. In patients with unstable renal function, e.g. those with acute kidney injury, the eGFR may not accurately reflect actual GFR. Performed By: #### 2 4323-8 ####[facility] LABCLIA [id number] [place] [id number] [place] Glucose [Mass/Vol] 189 mg/dL High 74-99 [facility] Comment on above: Order Comment: Speci men Type: BLOOD SPECIMENOrdering Facility: [facility] Address: [address] [place] [address] Result Comment: The [place] Diabetes [employer] (ADA) provides guidance for cutoff values for fasting glucose and random glucose. The ADA defines fasting as no caloric intake for at least 8 hours. Fasting plasma glucose results between 100 to 125 mg/dL indicate increased risk for diabetes (prediabetes).Fasting plasma glucose results greater than or equal to 126 mg/dL meet the criteria for diagnosis of diabetes. In the absence of unequivocal hyperglycemia, results should be confirmed by repeat testing. In a patient with classic symptoms of hyperglycemia or hyperglycemic crisis, random plasma glucose results greater than or equal to 200 mg/dL meet the criteria for diagnosis of diabetes.Reference: Standards of Medical Care in Diabetes 2016, [place] [employer]. Diabetes Care. 2016.39(Suppl 1). Performed By: #### 2 4323-8 ####[facility] LABCLIA [id number] [place] [address] [place] Potassium [Moles/Vol] 4.1 mmol/L Normal 3.7-5.1 [facility] Comment on above: Order Comment: Speci men Type: BLOOD SPECIMENOrdering Facility: [facility] Address: [address] [place] [address] Performed By: #### 2 4323-8 ####[facility] LABCLIA [id number] [place] [address] [place] Protein [Mass/Vol] 6.5 g/dL Normal 6.3-8.0 [facility] Comment on above: Order Comment: Speci men Type: BLOOD SPECIMENOrdering Facility: [facility] Address: [address] [place] [address] Performed By: #### 2 4323-8 ####[facility] LABCLIA [id number] [place] [id number] [place] Sodium [Moles/Vol] 140 mmol/L Normal 136-144 [facility] Comment on above: Order Comment: Speci men Type: BLOOD SPECIMENOrdering Facility: [facility] Address: [address] [place] [address] Performed By: #### 2 4323-8 ####[facility] LABCLIA [id number] [place] [id number] [place] Urea nitrogen [Mass/Vol] 70 mg/dL High 05-13 [facility] Comment on above: Order Comment: Speci men Type: BLOOD SPECIMENOrdering Facility: [facility] Address: [address] [place] [address] Performed By: #### 2 4323-8 ####[facility] LABCLIA [id number] [place] [address] [place] XR CHEST 1V FRONTAL PORTon 0 01-11-2025 XR CHEST 1V FRONTAL PORT Normal [facility] CBC panel Auto (Bld)on 01-10 Erythrocyte distribution width (RBC) [Ratio] 14.9 % Normal 11.5-15.0 [facility] Comment on above: Order Comment: Speci men Type: BLOOD SPECIMENOrdering Facility: [facility] Address: [address] [place] [address] Performed By: #### 5 8410-2 ####[facility]IA [id number] [place] [address] [place] Hematocrit (Bld) [Volume fraction] 27.4 % Low 39.0-51.0 [facility] Comment on above: Order Comment: Speci men Type: BLOOD SPECIMENOrdering Facility: [facility] Address: [address] [place] [address] Performed By: #### 5 8410-2 ####[facility] LABCLIA [id number] [place] [address] [place] Hemoglobin (Bld) [Mass/Vol] 8.5 g/dL Low 13.0-17.0 [facility] Comment on above: Order Comment: Speci men Type: BLOOD SPECIMENOrdering Facility: [facility] Address: [address] [place] [address] Performed By: #### 5 8410-2 ####[facility] LABCLIA [id number] [place] [address] [place] MCH (RBC) [Entitic mass] 31.0 pg Normal 26.0-34.0 [facility] Comment on above: Order Comment: Speci men Type: BLOOD SPECIMENOrdering Facility: [facility] Address: [address] [place] [address] Performed By: #### 5 8410-2 ####[facility]IA [id number] [address] [place] MCHC (RBC) [Mass/Vol] 31.0 g/dL Normal 30.5-36.0 [facility] Comment on above: Order Comment: Speci men Type: BLOOD SPECIMENOrdering Facility: [facility] Address: [address] [place] [address] Performed By: #### 5 8410-2 ####[facility]IA [id number] [address] [place] MCV (RBC) [Entitic vol] 100.0 fL Normal 80.0-100.0 [facility] Comment on above: Order Comment: Speci men Type: BLOOD SPECIMENOrdering Facility: [facility] Address: [address] [place] [address] Performed By: #### 5 8410-2 ####[facility] LABIA [id number] [place] [address] [place] Nucleated RBC (Bld) [#/Vol] 10*3/uL Normal <0.01 [facility] Comment on above: Order Comment: Speci men Type: BLOOD SPECIMENOrdering Facility: [facility] Address: [address] [place] [address] Performed By: #### 5 8410-2 ####[facility] LABCLIA [id number] [place] [address] [place] Platelet mean volume (Bld) [Entitic vol] 11.2 fL Normal 9.0-12.7 [facility] Comment on above: Order Comment: Speci men Type: BLOOD SPECIMENOrdering Facility: [facility] Address: [address] [place] [address] Performed By: #### 5 8410-2 ####[facility] LABCLIA [id number] [place] [id number] [place] Platelets (Bld) [#/Vol] 159 10*3/uL Normal 150-400 [facility] Comment on above: Order Comment: Speci men Type: BLOOD SPECIMENOrdering Facility: [facility] Address: [address] [place] [address] Performed By: #### 5 8410-2 ####[facility]IA [id number] [place] [address] [place] RBC (Bld) [#/Vol] 2.74 10*6/uL Low 4.20-6.[address] [facility] Comment on above: Order Comment: Speci men Type: BLOOD SPECIMENOrdering Facility: [facility] Address: [address] [place] [address] Performed By: #### 5 8410-2 ####[facility] LABIA [id number] [place] [address] [place] WBC (Bld) [#/Vol] 10.42 10*3/uL Normal 3.70-11.00 [facility] Comment on above: Order Comment: Speci men Type: BLOOD SPECIMENOrdering Facility: [facility] Address: [address] [place] [address] Performed By: #### 5 8410-2 ####[facility] LABIA [id number] [place] [id number] [place] CONSULT PROGon 01-10-2025 CONSULT PROG Normal [facility] CONSULT PROG Normal [facility] Comprehensive metabolic 2000 panelon 01-10-2025 Albumin [Mass/Vol] 3.3 g/dL Low 3.9-4.9 [facility] Comment on above: Order Comment: Speci men Type: BLOOD SPECIMENOrdering Facility: [facility] Address: [address] [place], [place] [address] Performed By: #### 2 4323-8 ####[facility] LABCLIA [id number] [address] [place] [address] [place] ALP [Catalytic activity/Vol] 145 U/L High 38-113 [facility] Comment on above: Order Comment: Speci men Type: BLOOD SPECIMENOrdering Facility: [facility] Address: [address] [place] [address] Performed By: #### 2 4323-8 ####[facility] LABCLIA [id number] [place] [id number] [place] ALT [Catalytic activity/Vol] 8 U/L Low 10-54 [facility] Comment on above: Order Comment: Speci men Type: BLOOD SPECIMENOrdering Facility: [facility] Address: [address] [place] [address] Performed By: #### 2 4323-8 ####[facility] LABCLIA [id number] [place] [id number] [place] Anion gap [Moles/Vol] 14 mmol/L Normal 8-15 [facility] Comment on above: Order Comment: Speci men Type: BLOOD SPECIMENOrdering Facility: [facility] Address: [address] [place] [address] Performed By: #### 2 4323-8 ####[facility] LABCLIA [id number] [facility] [address] [address] [place] AST [Catalytic activity/Vol] 28 U/L Normal 14-40 [facility] Comment on above: Order Comment: Speci men Type: BLOOD SPECIMENOrdering Facility: [facility] Address: [address] [place], [place] [address] Performed By: #### 2 4323-8 ####[facility] LABCLIA [id number] [facility] [address] [place] [address] [place] Bilirubin [Mass/Vol] 0.5 mg/dL Normal 0.2-1.3 [facility] Comment on above: Order Comment: Speci men Type: BLOOD SPECIMENOrdering Facility: [facility] Address: [address] [place], [place] [address] Performed By: #### 2 4323-8 ####[facility] LABCLIA [id number] [address], [facility] [address] [place] Calcium [Mass/Vol] 9.5 mg/dL Normal 8.5-10.2 [facility] Comment on above: Order Comment: Speci men Type: BLOOD SPECIMENOrdering Facility: [facility] Address: [address] [place] [address] Performed By: #### 2 4323-8 ####[facility] LABCLIA [id number] [place] [id number] [place] Chloride [Moles/Vol] 98 mmol/L Normal 98-107 [facility] Comment on above: Order Comment: Speci men Type: BLOOD SPECIMENOrdering Facility: [facility] Address: [address] [place] [address] Performed By: #### 2 4323-8 ####[facility] LABCLIA [id number] [address], [facility] [address] [place] CO2 [Moles/Vol] 28 mmol/L Normal 22-30 [facility] Comment on above: Order Comment: Speci men Type: BLOOD SPECIMENOrdering Facility: [facility] Address: [address] [place], [place] [address] Performed By: #### 2 4323-8 ####[facility] LABCLIA [id number] [facility] [address] [place] [address] [place] Creatinine [Mass/Vol] 4.37 mg/dL High 0.73-1.22 [facility] Comment on above: Order Comment: Speci men Type: BLOOD SPECIMENOrdering Facility: [facility] Address: [address] [place] [address] Performed By: #### 2 4323-8 ####[facility] LABIA [id number] [place] [address] [place] Creatinine and Glomerular filtration rate.predicted panel (S/P/Bld) 13 mL/min/1.73m??? Low >=60 [facility] Comment on above: Order Comment: Vandana aguero Type: BLOOD SPECIMENOrdering Facility: [facility] Address: [address] [place] [address] Result Comment: Maggy mated Glomerular Filtration Rate (eGFR) is calculated using the 2020 CKD-EPI creatinine equation. This equation utilizes serum creatinine, sex, and age as parameters. The creatinine assay has traceable calibration to isotope dilution-mass spectrometry. Refer to KDIGO guidelines for clinical interpretation. In patients with unstable renal function, e.g. those with acute kidney injury, the eGFR may not accurately reflect actual GFR. Performed By: #### 2 4323-8 ####[facility] LABIA [id number] [place] [address] [place] Glucose [Mass/Vol] 298 mg/dL High 74-99 [facility] Comment on above: Order Comment: Vandana more Type: BLOOD SPECIMENOrdering Facility: [facility] Address: [address] [place] [address] Result Comment: The [place] Diabetes [employer] (ADA) provides guidance for cutoff values for fasting glucose and random glucose. The ADA defines fasting as no caloric intake for at least 8 hours. Fasting plasma glucose results between 100 to 125 mg/dL indicate increased risk for diabetes (prediabetes).Fasting plasma glucose results greater than or equal to 126 mg/dL meet the criteria for diagnosis of diabetes. In the absence of unequivocal hyperglycemia, results should be confirmed by repeat testing. In a patient with classic symptoms of hyperglycemia or hyperglycemic crisis, random plasma glucose results greater than or equal to 200 mg/dL meet the criteria for diagnosis of diabetes.Reference: Standards of Medical Care in Diabetes 2016, [place] [employer]. Diabetes Care. 2016.39(Suppl 1). Performed By: #### 2 4323-8 ####[facility] LABCLIA [id number] [address] [address] [place] Potassium [Moles/Vol] 4.1 mmol/L Normal 3.7-5.1 [facility] Comment on above: Order Comment: Speci men Type: BLOOD SPECIMENOrdering Facility: [facility] Address: [address] [place] [address] Performed By: #### 2 4323-8 ####[facility] LABCLIA [id number] [place] [id number] [place] Protein [Mass/Vol] 6.3 g/dL Normal 6.3-8.0 [facility] Comment on above: Order Comment: Speci men Type: BLOOD SPECIMENOrdering Facility: [facility] Address: [address] [place] [address] Performed By: #### 2 4323-8 ####[facility] LABIA [id number] [place] [id number] [place] Sodium [Moles/Vol] 140 mmol/L Normal 136-144 [facility] Comment on above: Order Comment: Speci men Type: BLOOD SPECIMENOrdering Facility: [facility] Address: [address] [place] [address] Performed By: #### 2 4323-8 ####[facility] LABCLIA [id number] [place] [id number] [place] Urea nitrogen [Mass/Vol] 66 mg/dL High 9-24 [facility] Comment on above: Order Comment: Speci men Type: BLOOD SPECIMENOrdering Facility: [facility] Address: [address] [place] [address] Performed By: #### 2 4323-8 ####[facility] LABCLIA [id number] [place] [id number] [place] TYPE + SCREENon 01-10-2025 ABO O Normal [facility] Comment on above: Order Comment: Speci men Type: BLOOD SPECIMENOrdering Facility: [facility] Address: [address] [place] [address] Performed By: #### T SCR ####[facility] BANKCLIA [id number] [address] [place] Rh Nom (Bld) Positive Normal [facility] Comment on above: Order Comment: Speci men Type: BLOOD SPECIMENOrdering Facility: [facility] Address: [address] [place] [address] Performed By: #### T SCR ####CC [facility] BLOOD BANKIA [id number] [address] TYPE AND SCREEN EXPIRATION 01/13/2025 23:59 Normal [facility] Comment on above: Order Comment: Speci men Type: BLOOD SPECIMENOrdering Facility: [facility] Address: [address] [place] [address] Performed By: #### T SCR ####CC [facility] BLOOD BANKIA [id number] [address] [place] Urinalysis complete panel (U )on 01-10-2025 Bacteria LM.HPF (Urine sed) [#/Area] Negative Normal Negative [facility] Comment on above: Order Comment: Speci men Type: URINE SPECIMENOrdering Facility: [facility] Address: [address] [place] [address] Performed By: #### 2 4356-8 ####[facility] LABCLIA [id number] [address] [place] Bilirubin Ql (U) Negative Normal Negative [facility] Comment on above: Order Comment: Speci men Type: URINE SPECIMENOrdering Facility: [facility] Address: [address] [place] [address] Performed By: #### 2 4356-8 ####[facility] LABCLIA [id number] [address] [place] [address] [place] Clarity (Unsp spec) Clear Normal Clear [facility] Comment on above: Order Comment: Speci men Type: URINE SPECIMENOrdering Facility: [facility] Address: [address] [place], [place] [address] Performed By: #### 2 4356-8 ####[facility] LABCLIA [id number] [address] [place] [address] [place] Color (U) Yellow Normal Yellow [facility] Comment on above: Order Comment: Speci men Type: URINE SPECIMENOrdering Facility: [facility] Address: [address] [place] [address] Performed By: #### 2 4356-8 ####[facility] LABCLIA [id number] [address] [place] [address] [place] Epithelial cells LM.HPF (Urine sed) [#/Area] None Seen Normal [facility] Comment on above: Order Comment: Speci men Type: URINE SPECIMENOrdering Facility: [facility] Address: [address] [place] [address] Performed By: #### 2 4356-8 ####[facility] LABCLIA [id number] [address] [place] [address] [place] Glucose Test strip (U) [Mass/Vol] Trace Abnormal Negative [facility] Comment on above: Order Comment: Speci men Type: URINE SPECIMENOrdering Facility: [facility] Address: [address] [place] [address] Performed By: #### 2 4356-8 ####[facility] LABCLIA [id number] [address] [place] [address] [place] Hemoglobin Ql (U) Negative Normal Negative [facility] Comment on above: Order Comment: Speci men Type: URINE SPECIMENOrdering Facility: [facility] Address: [address] [place], [place] [address] Performed By: #### 2 4356-8 ####[facility] LABCLIA [id number] [address] [place] [address] [place] Hyaline casts (Urine sed) [#/Area] 1-3 /LPF Abnormal 0 /LPF [facility] Comment on above: Order Comment: Speci men Type: URINE SPECIMENOrdering Facility: [facility] Address: [address] [place] [address] Performed By: #### 2 4356-8 ####[facility] LABCLIA [id number] [address] [place] [address] [place] Ketones Ql (U) Negative Normal Negative [facility] Comment on above: Order Comment: Speci men Type: URINE SPECIMENOrdering Facility: [facility] Address: [address] [place] [address] Performed By: #### 2 4356-8 ####[facility] LABCLIA [id number] [address], [place] [address] [place] Leukocyte esterase Test strip Ql (U) Trace Abnormal Negative [facility] Comment on above: Order Comment: Speci men Type: URINE SPECIMENOrdering Facility: [facility] Address: [address] [place] [address] Performed By: #### 2 4356-8 ####[facility] LABCLIA [id number] [address], [place] [address] [place] Nitrite Ql (U) Negative Normal Negative [facility] Comment on above: Order Comment: Speci men Type: URINE SPECIMENOrdering Facility: [facility] Address: [address] [place] [address] Performed By: #### 2 4356-8 ####[facility] LABCLIA [id number] [place] [id number] [place] pH (U) 6.0 [pH] Normal <8.5 [facility] Comment on above: Order Comment: Speci men Type: URINE SPECIMENOrdering Facility: [facility] Address: [address] [place] [address] Performed By: #### 2 4356-8 ####[facility] LABIA [id number] [place] [address] [place] Protein (U) [Mass/Vol] 2+ Abnormal Negative [facility] Comment on above: Order Comment: Speci men Type: URINE SPECIMENOrdering Facility: [facility] Address: [address] [place] [address] Performed By: #### 2 4356-8 ####[facility] LABIA [id number] [place] [address] [place] RBC LM.HPF (Urine sed) [#/Area] 0-2 /HPF Normal 0-2 /HPF [facility] Comment on above: Order Comment: Speci men Type: URINE SPECIMENOrdering Facility: [facility] Address: [address] [place] [address] Performed By: #### 2 4356-8 ####[facility] [id number] [place] [address] [place] Specific gravity (U) [Rel density] 1.016 Normal 1.005-1.030 [facility] Comment on above: Order Comment: Speci men Type: URINE SPECIMENOrdering Facility: [facility] Address: [address] [place] [address] Performed By: #### 2 4356-8 ####[facility] LABIA [id number] [place] [address] [place] Urobilinogen Ql (U) 0.2 EU/dL Normal 0.2-1.0 EU/dL [facility] Comment on above: Order Comment: Speci men Type: URINE SPECIMENOrdering Facility: [facility] Address: [address] [place] [address] Performed By: #### 2 4356-8 ####[facility] LABIA [id number] [place] [address] [place] WBC LM.HPF (Urine sed) [#/Area] 0-5 /HPF Normal 0-5 /HPF [facility] Comment on above: Order Comment: Speci men Type: URINE SPECIMENOrdering Facility: [facility] Address: [address] [place] [address] Performed By: #### 2 4356-8 ####[facility] LABIA [id number] [place] [address] [place] XR CHEST 1V FRONTAL PORTon 0 01-10-2025 XR CHEST 1V FRONTAL PORT Normal [facility] ARTERIAL BLOOD GASESon 01-09 Base excess Calc (Bld) [Moles/Vol] 6 mmol/L High 0-2 [facility] Comment on above: Order Comment: Speci men Type: ARTERIAL BLOOD SPECIMENOrdering Facility: [facility] Address: [address] [place] [address] Performed By: #### A LLBG ####[facility] LABCLIA [id number] [place] [address] [place] Body temperature 98.6 [degF] Normal [facility] Comment on above: Order Comment: Speci men Type: ARTERIAL BLOOD SPECIMENOrdering Facility: [facility] Address: [address] [place] [address] Performed By: #### A LLBG ####[facility] LABCLIA [id number] [place] [address] [place] Calcium.ionized (Bld) [Mass/Vol] 1.20 mmol/L Normal 1.08-1.30 [facility] Comment on above: Order Comment: Speci men Type: ARTERIAL BLOOD SPECIMENOrdering Facility: [facility] Address: [address] [place] [address] Performed By: #### A LLBG ####[facility] LABCLIA [id number] [place] [address] [place] Calcium.ionized adjusted to pH 7.4 (BldA) [Moles/Vol] 1.22 mmol/L Normal 1.08-1.30 [facility] Comment on above: Order Comment: Speci men Type: ARTERIAL BLOOD SPECIMENOrdering Facility: [facility] Address: [address] [place] [address] Performed By: #### A LLBG ####[facility] LABCLIA [id number] [place] [address] [place] Carboxyhemoglobin (BldA) [Mass fraction] 1.7 % Normal 0.0-2.0 [facility] Comment on above: Order Comment: Speci men Type: ARTERIAL BLOOD SPECIMENOrdering Facility: [facility] Address: [address] [place] [address] Result Comment: Carb oxyhemoglobin Reference Range for Smokers: 2.0-8.0% Performed By: #### A LLBG ####[facility] LABCLIA [id number] [place] [address] [place] CO2 (Bld) [Partial pressure] 47 mm Hg High 36-46 [facility] Comment on above: Order Comment: Speci men Type: ARTERIAL BLOOD SPECIMENOrdering Facility: [facility] Address: [address] [place] [address] Performed By: #### A LLBG ####[facility] LABCLIA [id number] [place] [address] [place] Glucose [Mass/Vol] 138 mg/dL High 60-105 [facility] Comment on above: Order Comment: Speci men Type: ARTERIAL BLOOD SPECIMENOrdering Facility: [facility] Address: [address] [place] [address] Performed By: #### A LLBG ####[facility] LABCLIA [id number] [place] [address] [place] HCO3 (Bld) [Moles/Vol] 30 mmol/L High 22-26 [facility] Comment on above: Order Comment: Speci men Type: ARTERIAL BLOOD SPECIMENOrdering Facility: [facility] Address: [address] [place] [address] Performed By: #### A LLBG ####[facility] LABCLIA [id number] [place] [address] [place] Hematocrit (Bld) [Volume fraction] 26.0 % Low 39.0-51.0 [facility] Comment on above: Order Comment: Speci men Type: ARTERIAL BLOOD SPECIMENOrdering Facility: [facility] Address: [address] [place] [address] Performed By: #### A LLBG ####[facility] LABIA [id number] [place] [address] [place] Hemoglobin (Bld) [Mass/Vol] 8.4 g/dL Low 13.0-17.0 [facility] Comment on above: Order Comment: Speci men Type: ARTERIAL BLOOD SPECIMENOrdering Facility: [facility] Address: [address] [place] [address] Performed By: #### A LLBG ####[facility] LABIA [id number] [place] [address] [place] Lactate [Moles/Vol] 0.8 mmol/L Normal 0.5-2.[address] [facility] Comment on above: Order Comment: Speci men Type: ARTERIAL BLOOD SPECIMENOrdering Facility: [facility] Address: [address] [place] [address] Performed By: #### A LLBG ####[facility] LABCLIA [id number] [place] [address] [place] LITERS 2 Liters/min Normal [facility] Comment on above: Order Comment: Speci men Type: ARTERIAL BLOOD SPECIMENOrdering Facility: [facility] Address: [address] [place] [address] Performed By: #### A LLBG ####[facility] LABCLIA [id number] [address] [address] [place] Methemoglobin (Bld) [Mass fraction] 1.0 % Normal 0.0-1.5 [facility] Comment on above: Order Comment: Speci men Type: ARTERIAL BLOOD SPECIMENOrdering Facility: [facility] Address: [address] [place] [id number] Performed By: #### A LLBG ####[facility] LABCLIA [id number] [place] [id number] [place] O2 THERAPY NC = Nasal Cannula Normal [facility] Comment on above: Order Comment: Speci men Type: ARTERIAL BLOOD SPECIMENOrdering Facility: [facility] Address: [address] [place], [place] [address] Performed By: #### A LLBG ####[facility] LABCLIA [id number] [place] [id number] [place] Oxygen (Bld) [Partial pressure] 97 mm Hg High 85-95 [facility] Comment on above: Order Comment: Speci men Type: ARTERIAL BLOOD SPECIMENOrdering Facility: [facility] Address: [address] [place] [id number] Performed By: #### A LLBG ####[facility] LABCLIA [id number] [address] [address] [place] Oxyhemoglobin (BldA) [Mass fraction] 96 % Normal 95-98 [facility] Comment on above: Order Comment: Speci men Type: ARTERIAL BLOOD SPECIMENOrdering Facility: [facility] Address: [address] [place] [address] Performed By: #### A LLBG ####[facility] LABCLIA [id number] [place] [id number] [place] pH (Bld) 7.43 [pH] Normal 7.35-7.45 [facility] Comment on above: Order Comment: Speci men Type: ARTERIAL BLOOD SPECIMENOrdering Facility: [facility] Address: [address] [place] [address] Performed By: #### A LLBG ####[facility] LABCLIA [id number] [place] [address] [place] Potassium [Moles/Vol] 4.3 mmol/L Normal 3.5-5.0 [facility] Comment on above: Order Comment: Speci men Type: ARTERIAL BLOOD SPECIMENOrdering Facility: [facility] Address: [address] [place] [address] Performed By: #### A LLBG ####[facility] LABCLIA [id number] [place] [address] [place] Sodium [Moles/Vol] 138 mmol/L Normal 136-144 [facility] Comment on above: Order Comment: Speci men Type: ARTERIAL BLOOD SPECIMENOrdering Facility: [facility] Address: [address] [place] [address] Performed By: #### A LLBG ####[facility] LABCLIA [id number] [place] [address] [place] Base excess Calc (Bld) [Moles/Vol] 7 mmol/L High 0-2 [facility] Comment on above: Order Comment: Speci men Type: ARTERIAL BLOOD SPECIMENOrdering Facility: [facility] Address: [address] [place] [address] Performed By: #### A LLBG ####[facility] LABCLIA [id number] [place] [address] [place] Body temperature 98.6 [degF] Normal [facility] Comment on above: Order Comment: Speci men Type: ARTERIAL BLOOD SPECIMENOrdering Facility: [facility] Address: [address] [place] [address] Performed By: #### A LLBG ####[facility] LABCLIA [id number] [place] [address] [place] Calcium.ionized (Bld) [Mass/Vol] 1.19 mmol/L Normal 1.08-1.30 [facility] Comment on above: Order Comment: Speci men Type: ARTERIAL BLOOD SPECIMENOrdering Facility: [facility] Address: [address] [place] [address] Performed By: #### A LLBG ####[facility] LABCLIA [id number] [place] [address] [place] Calcium.ionized adjusted to pH 7.4 (BldA) [Moles/Vol] 1.20 mmol/L Normal 1.08-1.30 [facility] Comment on above: Order Comment: Speci men Type: ARTERIAL BLOOD SPECIMENOrdering Facility: [facility] Address: [address] [place] [address] Performed By: #### A LLBG ####[facility] LABCLIA [id number] [place] [address] [place] Carboxyhemoglobin (BldA) [Mass fraction] 1.7 % Normal 0.0-2.0 [facility] Comment on above: Order Comment: Speci men Type: ARTERIAL BLOOD SPECIMENOrdering Facility: [facility] Address: [address] [place] [address] Result Comment: Carb oxyhemoglobin Reference Range for Smokers: 2.0-8.0% Performed By: #### A LLBG ####[facility] LABCLIA [id number] [place] [address] [place] CO2 (Bld) [Partial pressure] 50 mm Hg High 36-46 [facility] Comment on above: Order Comment: Speci men Type: ARTERIAL BLOOD SPECIMENOrdering Facility: [facility] Address: [address] [place] [address] Performed By: #### A LLBG ####[facility] LABCLIA [id number] [place] [address] [place] Glucose [Mass/Vol] 95 mg/dL Normal 60-105 [facility] Comment on above: Order Comment: Speci men Type: ARTERIAL BLOOD SPECIMENOrdering Facility: [facility] Address: [address] [place] [address] Performed By: #### A LLBG ####[facility] LABCLIA [id number] [place] [address] [place] HCO3 (Bld) [Moles/Vol] 32 mmol/L High 22-26 [facility] Comment on above: Order Comment: Speci men Type: ARTERIAL BLOOD SPECIMENOrdering Facility: [facility] Address: [address] [place] [address] Performed By: #### A LLBG ####[facility] LABCLIA [id number] [place] [address] [place] Hematocrit (Bld) [Volume fraction] 25.8 % Low 39.0-51.0 [facility] Comment on above: Order Comment: Speci men Type: ARTERIAL BLOOD SPECIMENOrdering Facility: [facility] Address: [address] [place] [address] Performed By: #### A LLBG ####[facility] LABCLIA [id number] [place] [address] [place] Hemoglobin (Bld) [Mass/Vol] 8.3 g/dL Low 13.0-17.0 [facility] Comment on above: Order Comment: Speci men Type: ARTERIAL BLOOD SPECIMENOrdering Facility: [facility] Address: [address] [place] [address] Performed By: #### A LLBG ####[facility] LABCLIA [id number] [place] [id number] [place] Lactate [Moles/Vol] 0.7 mmol/L Normal 0.5-2.[address] [facility] Comment on above: Order Comment: Speci men Type: ARTERIAL BLOOD SPECIMENOrdering Facility: [facility] Address: [address] [place] [address] Performed By: #### A LLBG ####[facility] LABCLIA [id number] [address] [address] [place] LITERS 3 Liters/min Normal [facility] Comment on above: Order Comment: Speci men Type: ARTERIAL BLOOD SPECIMENOrdering Facility: [facility] Address: [address] [place], [place] [id number] Performed By: #### A LLBG ####[facility] LABCLIA [id number] [address] [place] [address] [place] Methemoglobin (Bld) [Mass fraction] 0.5 % Normal 0.0-1.5 [facility] Comment on above: Order Comment: Speci men Type: ARTERIAL BLOOD SPECIMENOrdering Facility: [facility] Address: [address] [place], [place] [address] Performed By: #### A LLBG ####[facility] LABCLIA [id number] [place] [id number] [place] O2 THERAPY NC = Nasal Cannula Normal [facility] Comment on above: Order Comment: Speci men Type: ARTERIAL BLOOD SPECIMENOrdering Facility: [facility] Address: [address] [place], [place] [address] Performed By: #### A LLBG ####[facility] LABCLIA [id number] [address] [address] [place] Oxygen (Bld) [Partial pressure] 86 mm Hg Normal 85-95 [facility] Comment on above: Order Comment: Speci men Type: ARTERIAL BLOOD SPECIMENOrdering Facility: [facility] Address: [address] [place] [address] Performed By: #### A LLBG ####[facility] LABCLIA [id number] [address] [address] [place] Oxyhemoglobin (BldA) [Mass fraction] 96 % Normal 95-98 [facility] Comment on above: Order Comment: Speci men Type: ARTERIAL BLOOD SPECIMENOrdering Facility: [facility] Address: [address] [place] [address] Performed By: #### A LLBG ####[facility] LABCLIA [id number] [place] [address] [place] pH (Bld) 7.42 [pH] Normal 7.35-7.45 [facility] Comment on above: Order Comment: Speci men Type: ARTERIAL BLOOD SPECIMENOrdering Facility: [facility] Address: [address] [place] [address] Performed By: #### A LLBG ####[facility] LABIA [id number] [place] [address] [place] Potassium [Moles/Vol] 4.0 mmol/L Normal 3.5-5.0 [facility] Comment on above: Order Comment: Speci men Type: ARTERIAL BLOOD SPECIMENOrdering Facility: [facility] Address: [address] [place] [address] Performed By: #### A LLBG ####[facility] LABCLIA [id number] [place] [address] [place] Sodium [Moles/Vol] 138 mmol/L Normal 136-144 [facility] Comment on above: Order Comment: Speci men Type: ARTERIAL BLOOD SPECIMENOrdering Facility: [facility] Address: [address] [place] [address] Performed By: #### A LLBG ####[facility] LABCLIA [id number] [place] [id number] [place] Base excess Calc (Bld) [Moles/Vol] 6 mmol/L High 0-2 [facility] Comment on above: Order Comment: Speci men Type: ARTERIAL BLOOD SPECIMENOrdering Facility: [facility] Address: [address] [place] [address] Performed By: #### A LLBG ####[facility] LABCLIA [id number] [place] [id number] [place] Body temperature 98.6 [degF] Normal [facility] Comment on above: Order Comment: Speci men Type: ARTERIAL BLOOD SPECIMENOrdering Facility: [facility] Address: [address] [place] [address] Performed By: #### A LLBG ####[facility] LABCLIA [id number] [place] [address] [place] Calcium.ionized (Bld) [Mass/Vol] 1.17 mmol/L Normal 1.08-1.30 [facility] Comment on above: Order Comment: Speci men Type: ARTERIAL BLOOD SPECIMENOrdering Facility: [facility] Address: [address] [place] [address] Performed By: #### A LLBG ####[facility] LABCLIA [id number] [place] [address] [place] Calcium.ionized adjusted to pH 7.4 (BldA) [Moles/Vol] 1.20 mmol/L Normal 1.08-1.30 [facility] Comment on above: Order Comment: Speci men Type: ARTERIAL BLOOD SPECIMENOrdering Facility: [facility] Address: [address] [place] [address] Performed By: #### A LLBG ####[place] [facility] [id number] [place] [address] [place] Carboxyhemoglobin (BldA) [Mass fraction] 1.9 % Normal 0.0-2.0 [facility] Comment on above: Order Comment: Speci men Type: ARTERIAL BLOOD SPECIMENOrdering Facility: [facility] Address: [address] [place] [address] Result Comment: Carb oxyhemoglobin Reference Range for Smokers: 2.0-8.0% Performed By: #### A LLBG ####[facility]CLIA [id number] [place] [id number] [place] CO2 (Bld) [Partial pressure] 45 mm Hg Normal 36-46 [facility] Comment on above: Order Comment: Speci men Type: ARTERIAL BLOOD SPECIMENOrdering Facility: [facility] Address: [address] [place] [address] Performed By: #### A LLBG ####[facility]CLIA [id number] [address] [address] [place] Glucose [Mass/Vol] 174 mg/dL High 60-105 [facility] Comment on above: Order Comment: Speci men Type: ARTERIAL BLOOD SPECIMENOrdering Facility: [facility] Address: [address] [place] [address] Performed By: #### A LLBG ####[facility]CLIA [id number] [place] [id number] [place] HCO3 (Bld) [Moles/Vol] 30 mmol/L High 22-26 [facility] Comment on above: Order Comment: Speci men Type: ARTERIAL BLOOD SPECIMENOrdering Facility: [facility] Address: [address] [place] [address] Performed By: #### A LLBG ####[facility]CLIA [id number] [place] [id number] [place] Hematocrit (Bld) [Volume fraction] 27.3 % Low 39.0-51.0 [facility] Comment on above: Order Comment: Speci men Type: ARTERIAL BLOOD SPECIMENOrdering Facility: [facility] Address: [address] [place] [address] Performed By: #### A LLBG ####[facility]CL[facility] [id number] [place] [id number] [place] Hemoglobin (Bld) [Mass/Vol] 8.8 g/dL Low 13.0-17.0 [facility] Comment on above: Order Comment: Speci men Type: ARTERIAL BLOOD SPECIMENOrdering Facility: [facility] Address: [address] [place] [address] Performed By: #### A LLBG ####[facility]CL[facility] [id number] [address] [address] [place] Lactate [Moles/Vol] 0.9 mmol/L Normal 0.5-2.[address] [facility] Comment on above: Order Comment: Speci men Type: ARTERIAL BLOOD SPECIMENOrdering Facility: [facility] Address: [address] [place] [address] Performed By: #### A LLBG ####[facility] LABIA [id number] [place] [id number] [place] Methemoglobin (Bld) [Mass fraction] 1.3 % Normal 0.0-1.5 [facility] Comment on above: Order Comment: Speci men Type: ARTERIAL BLOOD SPECIMENOrdering Facility: [facility] Address: [address] [place] [address] Performed By: #### A LLBG ####[facility] LABIA [id number] [place] [address] [place] O2 THERAPY NC = Nasal Cannula Normal [facility] Comment on above: Order Comment: Speci men Type: ARTERIAL BLOOD SPECIMENOrdering Facility: [facility] Address: [address] [place] [address] Performed By: #### A LLBG ####[facility] LABIA [id number] [place] [id number] [place] Oxygen (Bld) [Partial pressure] 96 mm Hg High 85-95 [facility] Comment on above: Order Comment: Speci men Type: ARTERIAL BLOOD SPECIMENOrdering Facility: [facility] Address: [address] [place], [place] [address] Performed By: #### A LLBG ####[facility]IA [id number] [place] [id number] [place] Oxyhemoglobin (BldA) [Mass fraction] 95 % Normal 95-98 [facility] Comment on above: Order Comment: Speci men Type: ARTERIAL BLOOD SPECIMENOrdering Facility: [facility] Address: [address] [place] [address] Performed By: #### A LLBG ####[facility]CLIA [id number] [place] [address] [place] pH (Bld) 7.44 [pH] Normal 7.35-7.45 [facility] Comment on above: Order Comment: Speci men Type: ARTERIAL BLOOD SPECIMENOrdering Facility: [facility] Address: [address] [place] [address] Performed By: #### A LLBG ####[facility]CL[facility] [id number] [place] [address] [place] Potassium [Moles/Vol] 4.0 mmol/L Normal 3.5-5.0 [facility] Comment on above: Order Comment: Speci men Type: ARTERIAL BLOOD SPECIMENOrdering Facility: [facility] Address: [address] [place] [address] Performed By: #### A LLBG ####[facility] LABIA [id number] [place] [address] [place] Sodium [Moles/Vol] 137 mmol/L Normal 136-144 [facility] Comment on above: Order Comment: Speci men Type: ARTERIAL BLOOD SPECIMENOrdering Facility: [facility] Address: [address] [place] [address] Performed By: #### A LLBG ####[facility] LABIA [id number] [place] [id number] [place] CASE MANAGEMon 01-09-2025 CASE MANAGEM Normal [facility] CBC panel Auto (Bld)on 01-09 Erythrocyte distribution width (RBC) [Ratio] 15.1 % High 11.5-15.0 [facility] Comment on above: Order Comment: Speci men Type: BLOOD SPECIMENOrdering Facility: [facility] Address: [address] [place] [address] Performed By: #### 5 8410-2 ####[facility] LABIA [id number] [place] [address] [place] Hematocrit (Bld) [Volume fraction] 26.9 % Low 39.0-51.0 [facility] Comment on above: Order Comment: Speci men Type: BLOOD SPECIMENOrdering Facility: [facility] Address: [address] [place] [address] Performed By: #### 5 8410-2 ####[facility]IA [id number] [place] [address] [place] Hemoglobin (Bld) [Mass/Vol] 8.5 g/dL Low 13.0-17.0 [facility] Comment on above: Order Comment: Speci men Type: BLOOD SPECIMENOrdering Facility: [facility] Address: [address] [place] [address] Performed By: #### 5 8410-2 ####[facility] LABIA [id number] [place] [address] [place] MCH (RBC) [Entitic mass] 32.2 pg Normal 26.0-34.0 [facility] Comment on above: Order Comment: Speci men Type: BLOOD SPECIMENOrdering Facility: [facility] Address: [address] [place] [address] Performed By: #### 5 8410-2 ####[facility]IA [id number] [place] [address] [place] MCHC (RBC) [Mass/Vol] 31.6 g/dL Normal 30.5-36.0 [facility] Comment on above: Order Comment: Speci men Type: BLOOD SPECIMENOrdering Facility: [facility] Address: [address] [place] [address] Performed By: #### 5 8410-2 ####[facility]IA [id number] [place] [address] [place] MCV (RBC) [Entitic vol] 101.9 fL High 80.0-100.0 [facility] Comment on above: Order Comment: Speci men Type: BLOOD SPECIMENOrdering Facility: [facility] Address: [address] [place] [address] Performed By: #### 5 8410-2 ####[facility]CL[facility] [id number] [place] [address] [place] Nucleated RBC (Bld) [#/Vol] 10*3/uL Normal <0.01 [facility] Comment on above: Order Comment: Speci men Type: BLOOD SPECIMENOrdering Facility: [facility] Address: [address] [place] [address] Performed By: #### 5 8410-2 ####[facility]IA [id number] [place] [address] [place] Platelet mean volume (Bld) [Entitic vol] 11.4 fL Normal 9.0-12.7 [facility] Comment on above: Order Comment: Speci men Type: BLOOD SPECIMENOrdering Facility: [facility] Address: [address] [place] [address] Performed By: #### 5 8410-2 ####[facility]IA [id number] [place] [address] [place] Platelets (Bld) [#/Vol] 148 10*3/uL Low 150-400 [facility] Comment on above: Order Comment: Speci men Type: BLOOD SPECIMENOrdering Facility: [facility] Address: [address] [place] [address] Performed By: #### 5 8410-2 ####[facility]IA [id number] [place] [address] [place] RBC (Bld) [#/Vol] 2.64 10*6/uL Low 4.20-6.[address] [facility] Comment on above: Order Comment: Speci men Type: BLOOD SPECIMENOrdering Facility: [facility] Address: [address] [place], [place] [address] Performed By: #### 5 8410-2 ####[facility]CLIA [id number] [address] [address] [place] WBC (Bld) [#/Vol] 10.49 10*3/uL Normal 3.70-11.00 [facility] Comment on above: Order Comment: Speci men Type: BLOOD SPECIMENOrdering Facility: [facility] Address: [address] [place] [address] Performed By: #### 5 8410-2 ####[facility]IA [id number] [place] [address] [place] CONSULT PROGon 01-09-2025 CONSULT PROG Normal [facility] Comprehensive metabolic 2000 panelon 01-09-2025 Albumin [Mass/Vol] 3.2 g/dL Low 3.9-4.9 [facility] Comment on above: Order Comment: Speci men Type: BLOOD SPECIMENOrdering Facility: [facility] Address: [address] [place] [address] Performed By: #### 2 777-1, , ####[facility] LABIA [id number] [place] [id number] [place] ALP [Catalytic activity/Vol] 143 U/L High 38-113 [facility] Comment on above: Order Comment: Speci men Type: BLOOD SPECIMENOrdering Facility: [facility] Address: [address] [place], [place] [address] Performed By: #### 2 777-1, , ####[facility]CLIA [id number] [place] [id number] [place] ALT [Catalytic activity/Vol] 8 U/L Low 10-54 [facility] Comment on above: Order Comment: Speci men Type: BLOOD SPECIMENOrdering Facility: [facility] Address: [address] [place] [address] Performed By: #### 2 777-1, , ####[facility]CLIA [id number] [address] [address] [place] Anion gap [Moles/Vol] 14 mmol/L Normal 8-15 [facility] Comment on above: Order Comment: Speci men Type: BLOOD SPECIMENOrdering Facility: [facility] Address: [address] [place], [place] [address] Performed By: #### 2 777-1, , ####[facility]CLIA [id number] [address] [address] [place] AST [Catalytic activity/Vol] 27 U/L Normal 14-40 [facility] Comment on above: Order Comment: Speci men Type: BLOOD SPECIMENOrdering Facility: [facility] Address: [address] [place], [place] [address] Performed By: #### 2 777-1, , ####[facility] LABIA [id number] [address] [address] [place] Bilirubin [Mass/Vol] 0.5 mg/dL Normal 0.2-1.3 [facility] Comment on above: Order Comment: Speci men Type: BLOOD SPECIMENOrdering Facility: [facility] Address: [address] [place] [address] Performed By: #### 2 777-1, , ####[facility] LABIA [id number] [address] [address] [place] Calcium [Mass/Vol] 9.2 mg/dL Normal 8.5-10.2 [facility] Comment on above: Order Comment: Speci men Type: BLOOD SPECIMENOrdering Facility: [facility] Address: [address] [place] [address] [place] [address] Performed By: #### 2 777-1, 00999-1, 52524-0 ####[facility]CLIA [id number] [address] [address] [place] Chloride [Moles/Vol] 98 mmol/L Normal 98-107 [facility] Comment on above: Order Comment: Speci men Type: BLOOD SPECIMENOrdering Facility: [facility] Address: [address] [place] [address] Performed By: #### 2 777-1, , 09990-1 ####[facility] LABIA [id number] [place] [id number] [place] CO2 [Moles/Vol] 26 mmol/L Normal 22-30 [facility] Comment on above: Order Comment: Speci men Type: BLOOD SPECIMENOrdering Facility: [facility] Address: [address] [place] [address] Performed By: #### 2 777-1, , 89070-6 ####[facility] LABIA [id number] [place] [id number] [place] Creatinine [Mass/Vol] 3.70 mg/dL High 0.73-1.22 [facility] Comment on above: Order Comment: Speci men Type: BLOOD SPECIMENOrdering Facility: [facility] Address: [address] [place], [place] [address] Performed By: #### 2 777-1, , 03308-9 ####[facility] LABIA [id number] [address] [address] [place] Creatinine and Glomerular filtration rate.predicted panel (S/P/Bld) 16 mL/min/1.73m??? Low >=60 [facility] Comment on above: Order Comment: Speci men Type: BLOOD SPECIMENOrdering Facility: [facility] Address: [address] [place], [place] [address] Result Comment: Maggy mated Glomerular Filtration Rate (eGFR) is calculated using the 2020 CKD-EPI creatinine equation. This equation utilizes serum creatinine, sex, and age as parameters. The creatinine assay has traceable calibration to isotope dilution-mass spectrometry. Refer to KDIGO guidelines for clinical interpretation. In patients with unstable renal function, e.g. those with acute kidney injury, the eGFR may not accurately reflect actual GFR. Performed By: #### 2 777-1, , ####[facility]CLIA [id number] [address] [address] [place] Glucose [Mass/Vol] 224 mg/dL High 74-99 [facility] Comment on above: Order Comment: Speceun men Type: BLOOD SPECIMENOrdering Facility: [facility] Address: [address] [place] [address] Result Comment: The [place] [employer] (ADA) provides guidance for cutoff values for fasting glucose and random glucose. The ADA defines fasting as no caloric intake for at least 8 hours. Fasting plasma glucose results between 100 to 125 mg/dL indicate increased risk for diabetes (prediabetes).Fasting plasma glucose results greater than or equal to 126 mg/dL meet the criteria for diagnosis of diabetes. In the absence of unequivocal hyperglycemia, results should be confirmed by repeat testing. In a patient with classic symptoms of hyperglycemia or hyperglycemic crisis, random plasma glucose results greater than or equal to 200 mg/dL meet the criteria for diagnosis of diabetes.Reference: Standards of Medical Care in Diabetes 2016, [place] [employer]. Diabetes Care. 2016.39(Suppl 1). Performed By: #### 2 777-1, , ####[facility] LABIA [id number] [address] [address] [place] Potassium [Moles/Vol] 4.2 mmol/L Normal 3.7-5.1 [facility] Comment on above: Order Comment: Nayi men Type: BLOOD SPECIMENOrdering Facility: [facility] Address: [address] [place] [id number] Performed By: #### 2 777-1, , ####[facility] LABCLIA [id number] [address] [address] [place] Protein [Mass/Vol] 6.1 g/dL Low 6.3-8.0 [facility] Comment on above: Order Comment: Speci men Type: BLOOD SPECIMENOrdering Facility: [facility] Address: [address] [place] [address] Performed By: #### 2 777-1, , ####[facility] LABIA [id number] [address] [address] [place] Sodium [Moles/Vol] 138 mmol/L Normal 136-144 [facility] Comment on above: Order Comment: Speci men Type: BLOOD SPECIMENOrdering Facility: [facility] Address: [address] [place] [address] Performed By: #### 2 777-1, , ####[facility] LABIA [id number] [address] [address] [place] Urea nitrogen [Mass/Vol] 54 mg/dL High 9-24 [facility] Comment on above: Order Comment: Speci men Type: BLOOD SPECIMENOrdering Facility: [facility] Address: [address] [place] [address] Performed By: #### 2 777-1, , ####[facility] LABIA [id number] [address] [address] [place] Magnesium SerPl-mCncon 01-09 Magnesium [Mass/Vol] 2.3 mg/dL Normal 1.7-2.3 [facility] Comment on above: Order Comment: Speci men Type: BLOOD SPECIMENOrdering Facility: [facility] Address: [address] [place], [place] [address] Performed By: #### 2 777-1, , ####[facility] LABCLIA [id number] [address] [address] [place] NUTRITIONon 01-09-2025 NUTRITION Normal [facility] Phosphate SerPl-mCncon 01-09 Phosphate [Mass/Vol] 3.1 mg/dL Normal 2.7-4.8 [facility] Comment on above: Order Comment: Speci men Type: BLOOD SPECIMENOrdering Facility: [facility] Address: [address] [place] [address] Performed By: #### 2 777-1, 43906-9, 97315-1 ####[facility] LABIA [id number] [place] [id number] [place] THERAPY NTon 01-09-2025 THERAPY NT Normal [facility] XR CHEST 1V FRONTAL PORTon 0 01-09-2025 XR CHEST 1V FRONTAL PORT Normal [facility] ARTERIAL BLOOD GASESon 01-08 Base excess Calc (Bld) [Moles/Vol] 6 mmol/L High 0-2 [facility] Comment on above: Order Comment: Speci men Type: ARTERIAL BLOOD SPECIMENOrdering Facility: [facility] Address: [address] [place] [address] Performed By: #### A LLBG ####[facility] [id number] [place] [address] [place] Body temperature 98.6 [degF] Normal [facility] Comment on above: Order Comment: Speci men Type: ARTERIAL BLOOD SPECIMENOrdering Facility: [facility] Address: [address] [place] [address] Performed By: #### A LLBG ####[facility] LABIA [id number] [place] [address] [place] Calcium.ionized (Bld) [Mass/Vol] 1.20 mmol/L Normal 1.08-1.30 [facility] Comment on above: Order Comment: Speci men Type: ARTERIAL BLOOD SPECIMENOrdering Facility: [facility] Address: [address] [place] [address] Performed By: #### A LLBG ####[facility] LABIA [id number] [place] [address] [place] Calcium.ionized adjusted to pH 7.4 (BldA) [Moles/Vol] 1.17 mmol/L Normal 1.08-1.30 [facility] Comment on above: Order Comment: Speci men Type: ARTERIAL BLOOD SPECIMENOrdering Facility: [facility] Address: [address] [place] [address] Performed By: #### A LLBG ####[facility] LABIA [id number] [place] [address] [place] Carboxyhemoglobin (BldA) [Mass fraction] 1.9 % Normal 0.0-2.0 [facility] Comment on above: Order Comment: Speci men Type: ARTERIAL BLOOD SPECIMENOrdering Facility: [facility] Address: [address] [place] [address] Result Comment: Carb oxyhemoglobin Reference Range for Smokers: 2.0-8.0% Performed By: #### A LLBG ####[facility] LABIA [id number] [place] [address] [place] CO2 (Bld) [Partial pressure] 58 mm Hg High 36-46 [facility] Comment on above: Order Comment: Speci men Type: ARTERIAL BLOOD SPECIMENOrdering Facility: [facility] Address: [address] [place] [address] Performed By: #### A LLBG ####[facility] LABIA [id number] [place] [address] [place] Glucose [Mass/Vol] 242 mg/dL High 60-105 [facility] Comment on above: Order Comment: Speci men Type: ARTERIAL BLOOD SPECIMENOrdering Facility: [facility] Address: [address] [place] [address] Performed By: #### A LLBG ####[facility] LABCLIA [id number] [place] [address] [place] HCO3 (Bld) [Moles/Vol] 32 mmol/L High 22-26 [facility] Comment on above: Order Comment: Speci men Type: ARTERIAL BLOOD SPECIMENOrdering Facility: [facility] Address: [address] [place] [address] Performed By: #### A LLBG ####[facility] LABCLIA [id number] [place] [address] [place] Hematocrit (Bld) [Volume fraction] 27.4 % Low 39.0-51.0 [facility] Comment on above: Order Comment: Speci men Type: ARTERIAL BLOOD SPECIMENOrdering Facility: [facility] Address: [address] [place] [address] Performed By: #### A LLBG ####[facility] LABCLIA [id number] [place] [address] [place] Hemoglobin (Bld) [Mass/Vol] 8.8 g/dL Low 13.0-17.0 [facility] Comment on above: Order Comment: Speci men Type: ARTERIAL BLOOD SPECIMENOrdering Facility: [facility] Address: [address] [place] [address] Performed By: #### A LLBG ####[facility] LABCLIA [id number] [place] [address] [place] Lactate [Moles/Vol] 1.0 mmol/L Normal 0.5-2.[address] [facility] Comment on above: Order Comment: Speci men Type: ARTERIAL BLOOD SPECIMENOrdering Facility: [facility] Address: [address] [place] [address] Performed By: #### A LLBG ####[facility]CLIA [id number] [place] [address] [place] Methemoglobin (Bld) [Mass fraction] 1.4 % Normal 0.0-1.5 [facility] Comment on above: Order Comment: Speci men Type: ARTERIAL BLOOD SPECIMENOrdering Facility: [facility] Address: [address] [place] [address] Performed By: #### A LLBG ####[facility] LABCLIA [id number] [place] [address] [place] O2 THERAPY NC = Nasal Cannula Normal [facility] Comment on above: Order Comment: Speci men Type: ARTERIAL BLOOD SPECIMENOrdering Facility: [facility] Address: [address] [place] [address] Performed By: #### A LLBG ####[facility] LABCLIA [id number] [place] [address] [place] Oxygen (Bld) [Partial pressure] 70 mm Hg Low 85-95 [facility] Comment on above: Order Comment: Speci men Type: ARTERIAL BLOOD SPECIMENOrdering Facility: [facility] Address: [address] [place] [address] Performed By: #### A LLBG ####[facility]CLIA [id number] [place] [address] [place] Oxyhemoglobin (BldA) [Mass fraction] 91 % Low 95-98 [facility] Comment on above: Order Comment: Speci men Type: ARTERIAL BLOOD SPECIMENOrdering Facility: [facility] Address: [address] [place] [address] Performed By: #### A LLBG ####[facility]CLIA [id number] [place] [id number] [place] pH (Bld) 7.36 [pH] Normal 7.35-7.45 [facility] Comment on above: Order Comment: Speci men Type: ARTERIAL BLOOD SPECIMENOrdering Facility: [facility] Address: [address] [place] [address] Performed By: #### A LLBG ####[facility] LABCLIA [id number] [place] [address] [place] Potassium [Moles/Vol] 4.2 mmol/L Normal 3.5-5.0 [facility] Comment on above: Order Comment: Speci men Type: ARTERIAL BLOOD SPECIMENOrdering Facility: [facility] Address: [address] [place] [address] Performed By: #### A LLBG ####[facility] LABIA [id number] [place] [address] [place] Sodium [Moles/Vol] 136 mmol/L Normal 136-144 [facility] Comment on above: Order Comment: Speci men Type: ARTERIAL BLOOD SPECIMENOrdering Facility: [facility] Address: [address] [place] [address] Performed By: #### A LLBG ####[facility] LABIA [id number] [place] [address] [place] Base excess Calc (Bld) [Moles/Vol] 5 mmol/L High 0-2 [facility] Comment on above: Order Comment: Speci men Type: ARTERIAL BLOOD SPECIMENOrdering Facility: [facility] Address: [address] [place] [address] Performed By: #### A LLBG ####[facility] LABIA [id number] [place] [address] [place] Body temperature 98.6 [degF] Normal [facility] Comment on above: Order Comment: Speci men Type: ARTERIAL BLOOD SPECIMENOrdering Facility: [facility] Address: [address] [place] [address] Performed By: #### A LLBG ####[facility] LABIA [id number] [place] [address] [place] Calcium.ionized (Bld) [Mass/Vol] 1.22 mmol/L Normal 1.08-1.30 [facility] Comment on above: Order Comment: Speci men Type: ARTERIAL BLOOD SPECIMENOrdering Facility: [facility] Address: [address] [place] [address] Performed By: #### A LLBG ####[facility] LABCLIA [id number] [place] [address] [place] Calcium.ionized adjusted to pH 7.4 (BldA) [Moles/Vol] 1.22 mmol/L Normal 1.08-1.30 [facility] Comment on above: Order Comment: Speci men Type: ARTERIAL BLOOD SPECIMENOrdering Facility: [facility] Address: [address] [place] [address] Performed By: #### A LLBG ####[facility]IA [id number] [place] [address] [place] Carboxyhemoglobin (BldA) [Mass fraction] 1.9 % Normal 0.0-2.0 [facility] Comment on above: Order Comment: Speci men Type: ARTERIAL BLOOD SPECIMENOrdering Facility: [facility] Address: [address] [place] [address] Result Comment: Carb oxyhemoglobin Reference Range for Smokers: 2.0-8.0% Performed By: #### A LLBG ####[facility]IA [id number] [place] [address] [place] CO2 (Bld) [Partial pressure] 49 mm Hg High 36-46 [facility] Comment on above: Order Comment: Speci men Type: ARTERIAL BLOOD SPECIMENOrdering Facility: [facility] Address: [address] [place] [address] Performed By: #### A LLBG ####[facility] LABIA [id number] [place] [id number] [place] Glucose [Mass/Vol] 201 mg/dL High 60-105 [facility] Comment on above: Order Comment: Speci men Type: ARTERIAL BLOOD SPECIMENOrdering Facility: [facility] Address: [address] [place] [address] Performed By: #### A LLBG ####[facility] LABCLIA [id number] [place] [address] [place] HCO3 (Bld) [Moles/Vol] 30 mmol/L High 22-26 [facility] Comment on above: Order Comment: Speci men Type: ARTERIAL BLOOD SPECIMENOrdering Facility: [facility] Address: [address] [place] [address] Performed By: #### A LLBG ####[facility] LABCLIA [id number] [place] [address] [place] Hematocrit (Bld) [Volume fraction] 27.1 % Low 39.0-51.0 [facility] Comment on above: Order Comment: Speci men Type: ARTERIAL BLOOD SPECIMENOrdering Facility: [facility] Address: [address] [place] [address] Performed By: #### A LLBG ####[facility] LABCLIA [id number] [place] [address] [place] Hemoglobin (Bld) [Mass/Vol] 8.7 g/dL Low 13.0-17.0 [facility] Comment on above: Order Comment: Speci men Type: ARTERIAL BLOOD SPECIMENOrdering Facility: [facility] Address: [address] [place] [address] Performed By: #### A LLBG ####[facility] LABCLIA [id number] [place] [id number] [place] Lactate [Moles/Vol] 1.2 mmol/L Normal 0.5-2.[address] [facility] Comment on above: Order Comment: Speci men Type: ARTERIAL BLOOD SPECIMENOrdering Facility: [facility] Address: [address] [place] [address] Performed By: #### A LLBG ####[facility] LABCLIA [id number] [place] [id number] [place] Methemoglobin (Bld) [Mass fraction] 1.1 % Normal 0.0-1.5 [facility] Comment on above: Order Comment: Speci men Type: ARTERIAL BLOOD SPECIMENOrdering Facility: [facility] Address: [address] [place] [id number] Performed By: #### A LLBG ####[facility] LABCLIA [id number] [place] [id number] [place] O2 THERAPY NC = Nasal Cannula Normal [facility] Comment on above: Order Comment: Speci men Type: ARTERIAL BLOOD SPECIMENOrdering Facility: [facility] Address: [facility] [place] [address] Performed By: #### A LLBG ####[facility] LABCLIA [id number] [place] [id number] [place] Oxygen (Bld) [Partial pressure] 113 mm Hg High 85-95 [facility] Comment on above: Order Comment: Speci men Type: ARTERIAL BLOOD SPECIMENOrdering Facility: [facility] Address: [address] [place], [place] [address] Performed By: #### A LLBG ####[facility] LABCLIA [id number] [place] [id number] [place] Oxyhemoglobin (BldA) [Mass fraction] 96 % Normal 95-98 [facility] Comment on above: Order Comment: Speci men Type: ARTERIAL BLOOD SPECIMENOrdering Facility: [facility] Address: [address] [place] [id number] Performed By: #### A LLBG ####[facility] LABCLIA [id number] [place] [id number] [place] pH (Bld) 7.41 [pH] Normal 7.35-7.45 [facility] Comment on above: Order Comment: Speci men Type: ARTERIAL BLOOD SPECIMENOrdering Facility: [facility] Address: [address] [place] [address] Performed By: #### A LLBG ####[facility] LABCLIA [id number] [place] [address] [place] Potassium [Moles/Vol] 4.2 mmol/L Normal 3.5-5.0 [facility] Comment on above: Order Comment: Speci men Type: ARTERIAL BLOOD SPECIMENOrdering Facility: [facility] Address: [address] [place] [address] Performed By: #### A LLBG ####[facility] LABCLIA [id number] [place] [address] [place] Sodium [Moles/Vol] 139 mmol/L Normal 136-144 [facility] Comment on above: Order Comment: Speci men Type: ARTERIAL BLOOD SPECIMENOrdering Facility: [facility] Address: [address] [place] [address] Performed By: #### A LLBG ####[facility] LABCLIA [id number] [place] [address] [place] Base excess Calc (Bld) [Moles/Vol] 6 mmol/L High 0-2 [facility] Comment on above: Order Comment: Speci men Type: ARTERIAL BLOOD SPECIMENOrdering Facility: [facility] Address: [address] [place] [address] Performed By: #### A LLBG ####[facility] LABIA [id number] [place] [id number] [place] Body temperature 98.6 [degF] Normal [facility] Comment on above: Order Comment: Speci men Type: ARTERIAL BLOOD SPECIMENOrdering Facility: [facility] Address: [address] [place] [address] Performed By: #### A LLBG ####[facility]IA [id number] [place] [id number] [place] Calcium.ionized (Bld) [Mass/Vol] 1.20 mmol/L Normal 1.08-1.30 [facility] Comment on above: Order Comment: Speci men Type: ARTERIAL BLOOD SPECIMENOrdering Facility: [facility] Address: [address] [place] [address] Performed By: #### A LLBG ####[facility] LABCLIA [id number] [place] [address] [place] Calcium.ionized adjusted to pH 7.4 (BldA) [Moles/Vol] 1.19 mmol/L Normal 1.08-1.30 [facility] Comment on above: Order Comment: Speci men Type: ARTERIAL BLOOD SPECIMENOrdering Facility: [facility] Address: [address] [place] [address] Performed By: #### A LLBG ####[facility] LABCLIA [id number] [place] [address] [place] Carboxyhemoglobin (BldA) [Mass fraction] 2.0 % Normal 0.0-2.0 [facility] Comment on above: Order Comment: Speci men Type: ARTERIAL BLOOD SPECIMENOrdering Facility: [facility] Address: [address] [place] [address] Result Comment: Carb oxyhemoglobin Reference Range for Smokers: 2.0-8.0% Performed By: #### A LLBG ####[facility] LABIA [id number] [place] [address] [place] CO2 (Bld) [Partial pressure] 51 mm Hg High 36-46 [facility] Comment on above: Order Comment: Speci men Type: ARTERIAL BLOOD SPECIMENOrdering Facility: [facility] Address: [address] [place] [address] Performed By: #### A LLBG ####[facility] LABCLIA [id number] [place] [id number] [place] Glucose [Mass/Vol] 163 mg/dL High 60-105 [facility] Comment on above: Order Comment: Speci men Type: ARTERIAL BLOOD SPECIMENOrdering Facility: [facility] Address: [address] [place] [address] Performed By: #### A LLBG ####[facility] LABCLIA [id number] [place] [address] [place] HCO3 (Bld) [Moles/Vol] 31 mmol/L High 22-26 [facility] Comment on above: Order Comment: Speci men Type: ARTERIAL BLOOD SPECIMENOrdering Facility: [facility] Address: [address] [place] [address] Performed By: #### A LLBG ####[facility] LABCLIA [id number] [place] [address] [place] Hematocrit (Bld) [Volume fraction] 26.1 % Low 39.0-51.0 [facility] Comment on above: Order Comment: Speci men Type: ARTERIAL BLOOD SPECIMENOrdering Facility: [facility] Address: [address] [place] [address] Performed By: #### A LLBG ####[facility] LABIA [id number] [place] [address] [place] Hemoglobin (Bld) [Mass/Vol] 8.4 g/dL Low 13.0-17.0 [facility] Comment on above: Order Comment: Speci men Type: ARTERIAL BLOOD SPECIMENOrdering Facility: [facility] Address: [address] [place] [address] Performed By: #### A LLBG ####[facility] LABCLIA [id number] [place] [address] [place] Lactate [Moles/Vol] 1.3 mmol/L Normal 0.5-2.[address] [facility] Comment on above: Order Comment: Speci men Type: ARTERIAL BLOOD SPECIMENOrdering Facility: [facility] Address: [address] [place] [address] Performed By: #### A LLBG ####[facility] LABCLIA [id number] [address] [place] [address] [place] LITERS 3 Liters/min Normal [facility] Comment on above: Order Comment: Speci men Type: ARTERIAL BLOOD SPECIMENOrdering Facility: [facility] Address: [address] [place], [place] [address] Performed By: #### A LLBG ####[facility] LABCLIA [id number] [place] [id number] [place] Methemoglobin (Bld) [Mass fraction] 1.6 % High 0.0-1.5 [facility] Comment on above: Order Comment: Speci men Type: ARTERIAL BLOOD SPECIMENOrdering Facility: [facility] Address: [address] [place] [address] Performed By: #### A LLBG ####[facility] LABCLIA [id number] [place] [address] [place] O2 THERAPY NC = Nasal Cannula Normal [facility] Comment on above: Order Comment: Speci men Type: ARTERIAL BLOOD SPECIMENOrdering Facility: [facility] Address: [address] [place], [place] [address] Performed By: #### A LLBG ####[facility] LABCLIA [id number] [place] [id number] [place] Oxygen (Bld) [Partial pressure] 72 mm Hg Low 85-95 [facility] Comment on above: Order Comment: Speci men Type: ARTERIAL BLOOD SPECIMENOrdering Facility: [facility] Address: [address] [place], [place] [address] Performed By: #### A LLBG ####[facility] LABCLIA [id number] [place] [id number] [place] Oxyhemoglobin (BldA) [Mass fraction] 91 % Low 95-98 [facility] Comment on above: Order Comment: Speci men Type: ARTERIAL BLOOD SPECIMENOrdering Facility: [facility] Address: [address] [place] [address] Performed By: #### A LLBG ####[facility] LABCLIA [id number] [place] [address] [place] pH (Bld) 7.40 [pH] Normal 7.35-7.45 [facility] Comment on above: Order Comment: Speci men Type: ARTERIAL BLOOD SPECIMENOrdering Facility: [facility] Address: [address] [place] [address] Performed By: #### A LLBG ####[facility] LABCLIA [id number] [place] [address] [place] Potassium [Moles/Vol] 4.2 mmol/L Normal 3.5-5.0 [facility] Comment on above: Order Comment: Speci men Type: ARTERIAL BLOOD SPECIMENOrdering Facility: [facility] Address: [address] [place] [address] Performed By: #### A LLBG ####[facility]IA [id number] [place] [address] [place] Sodium [Moles/Vol] 137 mmol/L Normal 136-144 [facility] Comment on above: Order Comment: Speci men Type: ARTERIAL BLOOD SPECIMENOrdering Facility: [facility] Address: [address] [place] [address] Performed By: #### A LLBG ####[facility] LABIA [id number] [place] [id number] [place] Base excess Calc (Bld) [Moles/Vol] 5 mmol/L High 0-2 [facility] Comment on above: Order Comment: Speci men Type: ARTERIAL BLOOD SPECIMENOrdering Facility: [facility] Address: [address] [place] [address] Performed By: #### A LLBG ####[facility] LABIA [id number] [place] [id number] [place] Body temperature 98.6 [degF] Normal [facility] Comment on above: Order Comment: Speci men Type: ARTERIAL BLOOD SPECIMENOrdering Facility: [facility] Address: [address] [place] [address] Performed By: #### A LLBG ####[facility]IA [id number] [place] [address] [place] Calcium.ionized (Bld) [Mass/Vol] 1.17 mmol/L Normal 1.08-1.30 [facility] Comment on above: Order Comment: Speci men Type: ARTERIAL BLOOD SPECIMENOrdering Facility: [facility] Address: [address] [place] [address] Performed By: #### A LLBG ####[facility]IA [id number] [place] [address] [place] Calcium.ionized adjusted to pH 7.4 (BldA) [Moles/Vol] 1.18 mmol/L Normal 1.08-1.30 [facility] Comment on above: Order Comment: Speci men Type: ARTERIAL BLOOD SPECIMENOrdering Facility: [facility] Address: [address] [place] [address] Performed By: #### A LLBG ####[facility] LABIA [id number] [place] [address] [place] Carboxyhemoglobin (BldA) [Mass fraction] 1.8 % Normal 0.0-2.0 [facility] Comment on above: Order Comment: Speci men Type: ARTERIAL BLOOD SPECIMENOrdering Facility: [facility] Address: [address] [place] [address] Result Comment: Carb oxyhemoglobin Reference Range for Smokers: 2.0-8.0% Performed By: #### A LLBG ####[facility]IA [id number] [place] [address] [place] CO2 (Bld) [Partial pressure] 46 mm Hg Normal 36-46 [facility] Comment on above: Order Comment: Speci men Type: ARTERIAL BLOOD SPECIMENOrdering Facility: [facility] Address: [address] [place] [address] Performed By: #### A LLBG ####[facility] LABCLIA [id number] [place] [address] [place] Glucose [Mass/Vol] 207 mg/dL High 60-105 [facility] Comment on above: Order Comment: Speci men Type: ARTERIAL BLOOD SPECIMENOrdering Facility: [facility] Address: [address] [place] [address] Performed By: #### A LLBG ####[facility] LABCLIA [id number] [place] [address] [place] HCO3 (Bld) [Moles/Vol] 29 mmol/L High 22-26 [facility] Comment on above: Order Comment: Speci men Type: ARTERIAL BLOOD SPECIMENOrdering Facility: [facility] Address: [address] [place] [address] Performed By: #### A LLBG ####[facility] LABCLIA [id number] [place] [address] [place] Hematocrit (Bld) [Volume fraction] 26.3 % Low 39.0-51.0 [facility] Comment on above: Order Comment: Speci men Type: ARTERIAL BLOOD SPECIMENOrdering Facility: [facility] Address: [address] [place] [address] Performed By: #### A LLBG ####[facility] LABCLIA [id number] [place] [id number] [place] Hemoglobin (Bld) [Mass/Vol] 8.5 g/dL Low 13.0-17.0 [facility] Comment on above: Order Comment: Speci men Type: ARTERIAL BLOOD SPECIMENOrdering Facility: [facility] Address: [address] [place] [address] Performed By: #### A LLBG ####[facility] LABCLIA [id number] [address] [place] [address] [place] Lactate [Moles/Vol] 1.0 mmol/L Normal 0.5-2.[address] [facility] Comment on above: Order Comment: Speci men Type: ARTERIAL BLOOD SPECIMENOrdering Facility: [facility] Address: [address] [place] [address] Performed By: #### A LLBG ####[facility] LABCLIA [id number] [place] [id number] [place] LITERS 3 Liters/min Normal [facility] Comment on above: Order Comment: Speci men Type: ARTERIAL BLOOD SPECIMENOrdering Facility: [facility] Address: [address] [place] [address] Performed By: #### A LLBG ####[facility] LABCLIA [id number] [place] [address] [place] Methemoglobin (Bld) [Mass fraction] 1.0 % Normal 0.0-1.5 [facility] Comment on above: Order Comment: Speci men Type: ARTERIAL BLOOD SPECIMENOrdering Facility: [facility] Address: [address] [place] [address] Performed By: #### A LLBG ####[facility] LABCLIA [id number] [place] [id number] [place] O2 THERAPY NC = Nasal Cannula Normal [facility] Comment on above: Order Comment: Speci men Type: ARTERIAL BLOOD SPECIMENOrdering Facility: [facility] Address: [address] [place] [address] Performed By: #### A LLBG ####[facility] LABCLIA [id number] [place] [id number] [place] Oxygen (Bld) [Partial pressure] 71 mm Hg Low 85-95 [facility] Comment on above: Order Comment: Speci men Type: ARTERIAL BLOOD SPECIMENOrdering Facility: [facility] Address: [address] [place] [address] Performed By: #### A LLBG ####[facility] LABCLIA [id number] [place] [address] [place] Oxyhemoglobin (BldA) [Mass fraction] 92 % Low 95-98 [facility] Comment on above: Order Comment: Speci men Type: ARTERIAL BLOOD SPECIMENOrdering Facility: [facility] Address: [address] [place] [address] Performed By: #### A LLBG ####[facility] LABCLIA [id number] [place] [address] [place] pH (Bld) 7.42 [pH] Normal 7.35-7.45 [facility] Comment on above: Order Comment: Speci men Type: ARTERIAL BLOOD SPECIMENOrdering Facility: [facility] Address: [address] [place] [address] Performed By: #### A LLBG ####[facility] LABIA [id number] [place] [address] [place] Potassium [Moles/Vol] 4.6 mmol/L Normal 3.5-5.0 [facility] Comment on above: Order Comment: Speci men Type: ARTERIAL BLOOD SPECIMENOrdering Facility: [facility] Address: [address] [place] [address] Performed By: #### A LLBG ####[facility] LABIA [id number] [place] [address] [place] Sodium [Moles/Vol] 136 mmol/L Normal 136-144 [facility] Comment on above: Order Comment: Speci men Type: ARTERIAL BLOOD SPECIMENOrdering Facility: [facility] Address: [address] [place] [address] Performed By: #### A LLBG ####[facility] LABCLIA [id number] [place] [id number] [place] Base excess Calc (Bld) [Moles/Vol] 5 mmol/L High 0-2 [facility] Comment on above: Order Comment: Speci men Type: ARTERIAL BLOOD SPECIMENOrdering Facility: [facility] Address: [address] [place] [address] Performed By: #### A LLBG ####[facility] LABIA [id number] [place] [address] [place] Body temperature 98.6 [degF] Normal [facility] Comment on above: Order Comment: Speci men Type: ARTERIAL BLOOD SPECIMENOrdering Facility: [facility] Address: [address] [place] [address] Performed By: #### A LLBG ####[facility] LABIA [id number] [place] [address] [place] Calcium.ionized (Bld) [Mass/Vol] 1.16 mmol/L Normal 1.08-1.30 [facility] Comment on above: Order Comment: Speci men Type: ARTERIAL BLOOD SPECIMENOrdering Facility: [facility] Address: [address] [place] [address] Performed By: #### A LLBG ####[facility] [id number] [place] [address] [place] Calcium.ionized adjusted to pH 7.4 (BldA) [Moles/Vol] 1.17 mmol/L Normal 1.08-1.30 [facility] Comment on above: Order Comment: Speci men Type: ARTERIAL BLOOD SPECIMENOrdering Facility: [facility] Address: [address] [place] [address] Performed By: #### A LLBG ####[facility] LABIA [id number] [place] [id number] [place] Carboxyhemoglobin (BldA) [Mass fraction] 1.6 % Normal 0.0-2.0 [facility] Comment on above: Order Comment: Speci men Type: ARTERIAL BLOOD SPECIMENOrdering Facility: [facility] Address: [address] [place] [address] Result Comment: Carb oxyhemoglobin Reference Range for Smokers: 2.0-8.0% Performed By: #### A LLBG ####[facility] LABCLIA [id number] [place] [address] [place] CO2 (Bld) [Partial pressure] 48 mm Hg High 36-46 [facility] Comment on above: Order Comment: Speci men Type: ARTERIAL BLOOD SPECIMENOrdering Facility: [facility] Address: [address] [place] [address] Performed By: #### A LLBG ####[facility] LABCLIA [id number] [place] [address] [place] Glucose [Mass/Vol] 193 mg/dL High 60-105 [facility] Comment on above: Order Comment: Speci men Type: ARTERIAL BLOOD SPECIMENOrdering Facility: [facility] Address: [address] [place] [address] Performed By: #### A LLBG ####[facility] LABCLIA [id number] [place] [address] [place] HCO3 (Bld) [Moles/Vol] 30 mmol/L High 22-26 [facility] Comment on above: Order Comment: Speci men Type: ARTERIAL BLOOD SPECIMENOrdering Facility: [facility] Address: [address] [place] [address] Performed By: #### A LLBG ####[facility] LABCLIA [id number] [place] [id number] [place] Hematocrit (Bld) [Volume fraction] 27.1 % Low 39.0-51.0 [facility] Comment on above: Order Comment: Speci men Type: ARTERIAL BLOOD SPECIMENOrdering Facility: [facility] Address: [address] [place] [address] Performed By: #### A LLBG ####[facility] LABCLIA [id number] [place] [address] [place] Hemoglobin (Bld) [Mass/Vol] 8.7 g/dL Low 13.0-17.0 [facility] Comment on above: Order Comment: Speci men Type: ARTERIAL BLOOD SPECIMENOrdering Facility: [facility] Address: [address] [place] [address] Performed By: #### A LLBG ####[facility] LABCLIA [id number] [place] [address] [place] Lactate [Moles/Vol] 0.8 mmol/L Normal 0.5-2.[address] [facility] Comment on above: Order Comment: Speci men Type: ARTERIAL BLOOD SPECIMENOrdering Facility: [facility] Address: [address] [place] [address] Performed By: #### A LLBG ####[facility] LABCLIA [id number] [place] [address] [place] LITERS 3 Liters/min Normal [facility] Comment on above: Order Comment: Speci men Type: ARTERIAL BLOOD SPECIMENOrdering Facility: [facility] Address: [address] [place] [address] Performed By: #### A LLBG ####[facility] LABCLIA [id number] [place] [address] [place] Methemoglobin (Bld) [Mass fraction] 0.6 % Normal 0.0-1.5 [facility] Comment on above: Order Comment: Speci men Type: ARTERIAL BLOOD SPECIMENOrdering Facility: [facility] Address: [address] [place] [address] Performed By: #### A LLBG ####[facility] LABIA [id number] [place] [address] [place] O2 THERAPY NC = Nasal Cannula Normal [facility] Comment on above: Order Comment: Speci men Type: ARTERIAL BLOOD SPECIMENOrdering Facility: [facility] Address: [address] [place] [address] Performed By: #### A LLBG ####[facility] LABCLIA [id number] [place] [address] [place] Oxygen (Bld) [Partial pressure] 111 mm Hg High 85-95 [facility] Comment on above: Order Comment: Speci men Type: ARTERIAL BLOOD SPECIMENOrdering Facility: [facility] Address: [address] [place] [address] Performed By: #### A LLBG ####[facility] LABIA [id number] [place] [address] [place] Oxyhemoglobin (BldA) [Mass fraction] 96 % Normal 95-98 [facility] Comment on above: Order Comment: Speci men Type: ARTERIAL BLOOD SPECIMENOrdering Facility: [facility] Address: [address] [place] [address] Performed By: #### A LLBG ####[facility] LABIA [id number] [place] [address] [place] pH (Bld) 7.42 [pH] Normal 7.35-7.45 [facility] Comment on above: Order Comment: Speci men Type: ARTERIAL BLOOD SPECIMENOrdering Facility: [facility] Address: [address] [place] [address] Performed By: #### A LLBG ####[facility] LABIA [id number] [place] [address] [place] Potassium [Moles/Vol] 4.5 mmol/L Normal 3.5-5.0 [facility] Comment on above: Order Comment: Speci men Type: ARTERIAL BLOOD SPECIMENOrdering Facility: [facility] Address: [address] [place] [address] Performed By: #### A LLBG ####[facility] LABIA [id number] [place] [id number] [place] Sodium [Moles/Vol] 138 mmol/L Normal 136-144 [facility] Comment on above: Order Comment: Speci men Type: ARTERIAL BLOOD SPECIMENOrdering Facility: [facility] Address: [address] [place] [address] Performed By: #### A LLBG ####[facility] LABIA [id number] [place] [address] [place] Base excess Calc (Bld) [Moles/Vol] 5 mmol/L High 0-2 [facility] Comment on above: Order Comment: Speci men Type: ARTERIAL BLOOD SPECIMENOrdering Facility: [facility] Address: [address] [place] [address] Performed By: #### A LLBG ####[facility] LABIA [id number] [place] [address] [place] Body temperature 98.6 [degF] Normal [facility] Comment on above: Order Comment: Speci men Type: ARTERIAL BLOOD SPECIMENOrdering Facility: [facility] Address: [address] [place] [address] Performed By: #### A LLBG ####[facility] LABIA [id number] [place] [address] [place] Calcium.ionized (Bld) [Mass/Vol] 1.14 mmol/L Normal 1.08-1.30 [facility] Comment on above: Order Comment: Speci men Type: ARTERIAL BLOOD SPECIMENOrdering Facility: [facility] Address: [address] [place] [address] Performed By: #### A LLBG ####[facility] LABIA [id number] [place] [address] [place] Calcium.ionized adjusted to pH 7.4 (BldA) [Moles/Vol] 1.15 mmol/L Normal 1.08-1.30 [facility] Comment on above: Order Comment: Speci men Type: ARTERIAL BLOOD SPECIMENOrdering Facility: [facility] Address: [address] [place], [place] [address] Performed By: #### A LLBG ####[facility] LABCLIA [id number] [place] [address] [place] Carboxyhemoglobin (BldA) [Mass fraction] 1.8 % Normal 0.0-2.0 [facility] Comment on above: Order Comment: Speci men Type: ARTERIAL BLOOD SPECIMENOrdering Facility: [facility] Address: [address] [place] [address] Result Comment: Carb oxyhemoglobin Reference Range for Smokers: 2.0-8.0% Performed By: #### A LLBG ####[facility] LABCLIA [id number] [place] [address] [place] CO2 (Bld) [Partial pressure] 47 mm Hg High 36-46 [facility] Comment on above: Order Comment: Speci men Type: ARTERIAL BLOOD SPECIMENOrdering Facility: [facility] Address: [address] [place] [address] Performed By: #### A LLBG ####[facility] LABCLIA [id number] [place] [address] [place] Glucose [Mass/Vol] 178 mg/dL High 60-105 [facility] Comment on above: Order Comment: Speci men Type: ARTERIAL BLOOD SPECIMENOrdering Facility: [facility] Address: [address] [place] [address] Performed By: #### A LLBG ####[facility] LABCLIA [id number] [place] [address] [place] HCO3 (Bld) [Moles/Vol] 30 mmol/L High 22-26 [facility] Comment on above: Order Comment: Speci men Type: ARTERIAL BLOOD SPECIMENOrdering Facility: [facility] Address: [address] [place] [address] Performed By: #### A LLBG ####[facility] LABCLIA [id number] [place] [address] [place] Hematocrit (Bld) [Volume fraction] 25.4 % Low 39.0-51.0 [facility] Comment on above: Order Comment: Speci men Type: ARTERIAL BLOOD SPECIMENOrdering Facility: [facility] Address: [address] [place] [address] Performed By: #### A LLBG ####[facility] LABCLIA [id number] [place] [address] [place] Hemoglobin (Bld) [Mass/Vol] 8.2 g/dL Low 13.0-17.0 [facility] Comment on above: Order Comment: Speci men Type: ARTERIAL BLOOD SPECIMENOrdering Facility: [facility] Address: [address] [place] [address] Performed By: #### A LLBG ####[facility] LABCLIA [id number] [place] [address] [place] Lactate [Moles/Vol] 0.6 mmol/L Normal 0.5-2.[address] [facility] Comment on above: Order Comment: Speci men Type: ARTERIAL BLOOD SPECIMENOrdering Facility: [facility] Address: [address] [place] [address] Performed By: #### A LLBG ####[facility] LABCLIA [id number] [place] [address] [place] Methemoglobin (Bld) [Mass fraction] 1.2 % Normal 0.0-1.5 [facility] Comment on above: Order Comment: Speci men Type: ARTERIAL BLOOD SPECIMENOrdering Facility: [facility] Address: [address] [place] [address] Performed By: #### A LLBG ####[facility] LABCLIA [id number] [place] [address] [place] O2 THERAPY NC = Nasal Cannula Normal [facility] Comment on above: Order Comment: Speci men Type: ARTERIAL BLOOD SPECIMENOrdering Facility: [facility] Address: [address] [place] [address] Performed By: #### A LLBG ####[facility] LABIA [id number] [place] [id number] [place] Oxygen (Bld) [Partial pressure] 96 mm Hg High 85-95 [facility] Comment on above: Order Comment: Speci men Type: ARTERIAL BLOOD SPECIMENOrdering Facility: [facility] Address: [address] [place] [address] Performed By: #### A LLBG ####[facility] LABIA [id number] [place] [address] [place] Oxyhemoglobin (BldA) [Mass fraction] 96 % Normal 95-98 [facility] Comment on above: Order Comment: Speci men Type: ARTERIAL BLOOD SPECIMENOrdering Facility: [facility] Address: [address] [place] [address] Performed By: #### A LLBG ####[facility] LABIA [id number] [place] [address] [place] pH (Bld) 7.42 [pH] Normal 7.35-7.45 [facility] Comment on above: Order Comment: Speci men Type: ARTERIAL BLOOD SPECIMENOrdering Facility: [facility] Address: [address] [place] [address] Performed By: #### A LLBG ####[facility] LABIA [id number] [place] [id number] [place] Potassium [Moles/Vol] 4.6 mmol/L Normal 3.5-5.0 [facility] Comment on above: Order Comment: Speci men Type: ARTERIAL BLOOD SPECIMENOrdering Facility: [facility] Address: [address] [place] [address] Performed By: #### A LLBG ####[facility] LABIA [id number] [place] [id number] [place] Sodium [Moles/Vol] 137 mmol/L Normal 136-144 [facility] Comment on above: Order Comment: Speci men Type: ARTERIAL BLOOD SPECIMENOrdering Facility: [facility] Address: [address] [place] [address] Performed By: #### A LLBG ####[facility] LABCLIA [id number] [place] [address] [place] Base excess Calc (Bld) [Moles/Vol] 6 mmol/L High 0-2 [facility] Comment on above: Order Comment: Speci men Type: ARTERIAL BLOOD SPECIMENOrdering Facility: [facility] Address: [address] [place] [address] Performed By: #### A LLBG ####[facility] LABCLIA [id number] [place] [address] [place] Body temperature 98.6 [degF] Normal [facility] Comment on above: Order Comment: Speci men Type: ARTERIAL BLOOD SPECIMENOrdering Facility: [facility] Address: [address] [place] [address] Performed By: #### A LLBG ####[facility] LABCLIA [id number] [place] [address] [place] Calcium.ionized (Bld) [Mass/Vol] 1.14 mmol/L Normal 1.08-1.30 [facility] Comment on above: Order Comment: Speci men Type: ARTERIAL BLOOD SPECIMENOrdering Facility: [facility] Address: [address] [place] [address] Performed By: #### A LLBG ####[facility] LABCLIA [id number] [place] [address] [place] Calcium.ionized adjusted to pH 7.4 (BldA) [Moles/Vol] 1.16 mmol/L Normal 1.08-1.30 [facility] Comment on above: Order Comment: Speci men Type: ARTERIAL BLOOD SPECIMENOrdering Facility: [facility] Address: [address] [place] [address] Performed By: #### A LLBG ####[facility] LABCLIA [id number] [place] [address] [place] Carboxyhemoglobin (BldA) [Mass fraction] 1.8 % Normal 0.0-2.0 [facility] Comment on above: Order Comment: Speci men Type: ARTERIAL BLOOD SPECIMENOrdering Facility: [facility] Address: [address] [place] [address] Result Comment: Carb oxyhemoglobin Reference Range for Smokers: 2.0-8.0% Performed By: #### A LLBG ####[facility] LABCLIA [id number] [place] [address] [place] CO2 (Bld) [Partial pressure] 45 mm Hg Normal 36-46 [facility] Comment on above: Order Comment: Speci men Type: ARTERIAL BLOOD SPECIMENOrdering Facility: [facility] Address: [address] [place] [address] Performed By: #### A LLBG ####[facility] LABCLIA [id number] [place] [address] [place] Glucose [Mass/Vol] 95 mg/dL Normal 60-105 [facility] Comment on above: Order Comment: Speci men Type: ARTERIAL BLOOD SPECIMENOrdering Facility: [facility] Address: [address] [place] [address] Performed By: #### A LLBG ####[facility] LABCLIA [id number] [place] [id number] [place] HCO3 (Bld) [Moles/Vol] 30 mmol/L High 22-26 [facility] Comment on above: Order Comment: Speci men Type: ARTERIAL BLOOD SPECIMENOrdering Facility: [facility] Address: [address] [place] [address] Performed By: #### A LLBG ####[facility] LABCLIA [id number] [place] [address] [place] Hematocrit (Bld) [Volume fraction] 26.1 % Low 39.0-51.0 [facility] Comment on above: Order Comment: Speci men Type: ARTERIAL BLOOD SPECIMENOrdering Facility: [facility] Address: [address] [place] [address] Performed By: #### A LLBG ####[facility] LABCLIA [id number] [place] [address] [place] Hemoglobin (Bld) [Mass/Vol] 8.4 g/dL Low 13.0-17.0 [facility] Comment on above: Order Comment: Speci men Type: ARTERIAL BLOOD SPECIMENOrdering Facility: [facility] Address: [address] [place] [address] Performed By: #### A LLBG ####[facility] LABCLIA [id number] [place] [address] [place] Lactate [Moles/Vol] 0.6 mmol/L Normal 0.5-2.[address] [facility] Comment on above: Order Comment: Speci men Type: ARTERIAL BLOOD SPECIMENOrdering Facility: [facility] Address: [address] [place] [address] Performed By: #### A LLBG ####[facility] LABCLIA [id number] [place] [address] [place] Methemoglobin (Bld) [Mass fraction] 1.0 % Normal 0.0-1.5 [facility] Comment on above: Order Comment: Speci men Type: ARTERIAL BLOOD SPECIMENOrdering Facility: [facility] Address: [address] [place] [address] Performed By: #### A LLBG ####[facility] LABCLIA [id number] [place] [address] [place] O2 THERAPY NC = Nasal Cannula Normal [facility] Comment on above: Order Comment: Speci men Type: ARTERIAL BLOOD SPECIMENOrdering Facility: [facility] Address: [address] [place] [address] Performed By: #### A LLBG ####[facility] LABCLIA [id number] [place] [id number] [place] Oxygen (Bld) [Partial pressure] 87 mm Hg Normal 85-95 [facility] Comment on above: Order Comment: Speci men Type: ARTERIAL BLOOD SPECIMENOrdering Facility: [facility] Address: [address] [place] [address] Performed By: #### A LLBG ####[facility] LABCLIA [id number] [place] [address] [place] Oxyhemoglobin (BldA) [Mass fraction] 96 % Normal 95-98 [facility] Comment on above: Order Comment: Speci men Type: ARTERIAL BLOOD SPECIMENOrdering Facility: [facility] Address: [address] [place] [address] Performed By: #### A LLBG ####[facility] LABIA [id number] [place] [id number] [place] pH (Bld) 7.44 [pH] Normal 7.35-7.45 [facility] Comment on above: Order Comment: Speci men Type: ARTERIAL BLOOD SPECIMENOrdering Facility: [facility] Address: [address] [place] [address] Performed By: #### A LLBG ####[facility] LABCLIA [id number] [place] [id number] [place] Potassium [Moles/Vol] 4.4 mmol/L Normal 3.7-5.1 [facility] Comment on above: Order Comment: Speci men Type: ARTERIAL BLOOD SPECIMENOrdering Facility: [facility] Address: [address] [place] [address] Performed By: #### A LLBG ####[facility] LABCLIA [id number] [address] [place] [address] [place] Order Comment: Speci men Type: BLOOD SPECIMENOrdering Facility: [facility] Address: [address] [place] [address] Performed By: #### 2 4323-8, 2776-1, ####[facility] LABCLIA [id number] [address] [place] [address] [place] Sodium [Moles/Vol] 139 mmol/L Normal 136-144 [facility] Comment on above: Order Comment: Speci men Type: ARTERIAL BLOOD SPECIMENOrdering Facility: [facility] Address: [address] [place] [address] Performed By: #### A LLBG ####[facility] LABCLIA [id number] [address] [place] [address] [place] Order Comment: Speci men Type: BLOOD SPECIMENOrdering Facility: [facility] Address: [address] [place] [address] Performed By: #### 2 4323-8, 2776-08, ####[facility] LABCLIA [id number] [address] [place] [address] [place] CBC panel Auto (Bld)on 01-08 Erythrocyte distribution width (RBC) [Ratio] 15.0 % Normal 11.5-15.0 [facility] Comment on above: Order Comment: Speci men Type: BLOOD SPECIMENOrdering Facility: [facility] Address: [address] [place] [address] Performed By: #### 5 8410-2 ####[facility] LABCLIA [id number] [address], [facility] [address] [place] Hematocrit (Bld) [Volume fraction] 27.1 % Low 39.0-51.0 [facility] Comment on above: Order Comment: Speci men Type: BLOOD SPECIMENOrdering Facility: [facility] Address: [address] [place] [address] Performed By: #### 5 8410-2 ####[facility] LABIA [id number] [place] [address] [place] Hemoglobin (Bld) [Mass/Vol] 8.5 g/dL Low 13.0-17.0 [facility] Comment on above: Order Comment: Speci men Type: BLOOD SPECIMENOrdering Facility: [facility] Address: [address] [place] [address] Performed By: #### 5 8410-2 ####[facility] LABIA [id number] [place] [address] [place] MCH (RBC) [Entitic mass] 31.6 pg Normal 26.0-34.0 [facility] Comment on above: Order Comment: Speci men Type: BLOOD SPECIMENOrdering Facility: [facility] Address: [address] [place] [address] Performed By: #### 5 8410-2 ####[facility] LABIA [id number] [place] [address] [place] MCHC (RBC) [Mass/Vol] 31.4 g/dL Normal 30.5-36.0 [facility] Comment on above: Order Comment: Speci men Type: BLOOD SPECIMENOrdering Facility: [facility] Address: [address] [place] [address] Performed By: #### 5 8410-2 ####[facility] LABIA [id number] [place] [id number] [place] MCV (RBC) [Entitic vol] 100.7 fL High 80.0-100.0 [facility] Comment on above: Order Comment: Speci men Type: BLOOD SPECIMENOrdering Facility: [facility] Address: [address] [place] [address] Performed By: #### 5 8410-2 ####[facility] LABIA [id number] [id number] [address] [place] Nucleated RBC (Bld) [#/Vol] 10*3/uL Normal <0.01 [facility] Comment on above: Order Comment: Speci men Type: BLOOD SPECIMENOrdering Facility: [facility] Address: [address] [place] [address] Performed By: #### 5 8410-2 ####[facility] LABCLIA [id number] [place] [address] [place] Platelet mean volume (Bld) [Entitic vol] 11.3 fL Normal 9.0-12.7 [facility] Comment on above: Order Comment: Speci men Type: BLOOD SPECIMENOrdering Facility: [facility] Address: [address] [place] [address] Performed By: #### 5 8410-2 ####[facility] LABCLIA [id number] [place] [address] [place] Platelets (Bld) [#/Vol] 141 10*3/uL Low 150-400 [facility] Comment on above: Order Comment: Speci men Type: BLOOD SPECIMENOrdering Facility: [facility] Address: [address] [place] [address] Performed By: #### 5 8410-2 ####[facility] LABCLIA [id number] [place] [address] [place] RBC (Bld) [#/Vol] 2.69 10*6/uL Low 4.20-6.[address] [facility] Comment on above: Order Comment: Speci men Type: BLOOD SPECIMENOrdering Facility: [facility] Address: [address] [place] [address] Performed By: #### 5 8410-2 ####[facility] LABCLIA [id number] [place] [id number] [place] WBC (Bld) [#/Vol] 12.43 10*3/uL High 3.70-11.00 [facility] Comment on above: Order Comment: Speci men Type: BLOOD SPECIMENOrdering Facility: [facility] Address: [address] [place], [place] [address] Performed By: #### 5 8410-2 ####[facility] LABCLIA [id number] [facility] [address] [place] [address] [place] CONSULT PROGon 01-08-2025 CONSULT PROG Normal [facility] CONSULT PROG Normal [facility] Comprehensive metabolic 2000 panelon 01-08-2025 Albumin [Mass/Vol] 3.2 g/dL Low 3.9-4.9 [facility] Comment on above: Order Comment: Speci men Type: BLOOD SPECIMENOrdering Facility: [facility] Address: [address] [place] [address] Performed By: #### 2 4323-8, 2776-08, ####[facility] LABCLIA [id number] [facility] [address], [facility] [address] [place] ALP [Catalytic activity/Vol] 137 U/L High 38-113 [facility] Comment on above: Order Comment: Speci men Type: BLOOD SPECIMENOrdering Facility: [facility] Address: [address] [place] [address] Performed By: #### 2 4323-8, 2776-08, ####[facility] LABCLIA [id number] [facility] [address] [place] [address] [place] ALT [Catalytic activity/Vol] 6 U/L Low 10-54 [facility] Comment on above: Order Comment: Speci men Type: BLOOD SPECIMENOrdering Facility: [facility] Address: [address] [place] [address] Performed By: #### 2 4323-8, 2776-08, ####[facility] LABCLIA [id number] [facility] [address] [place] [address] [place] Anion gap [Moles/Vol] 11 mmol/L Normal 8-15 [facility] Comment on above: Order Comment: Speci men Type: BLOOD SPECIMENOrdering Facility: [facility] Address: [address] [place], [place] [id number] Performed By: #### 2 4323-8, 2776-08, ####[facility] LABCLIA [id number] [facility] [address] [address] [place] AST [Catalytic activity/Vol] 25 U/L Normal 14-40 [facility] Comment on above: Order Comment: Speci men Type: BLOOD SPECIMENOrdering Facility: [facility] Address: [address] [place], [place] [address] Performed By: #### 2 4323-8, 2776-08, ####[facility] LABCLIA [id number] [address] [address] [place] Bilirubin [Mass/Vol] 0.5 mg/dL Normal 0.2-1.3 [facility] Comment on above: Order Comment: Speci men Type: BLOOD SPECIMENOrdering Facility: [facility] Address: [address] [place], [place] [address] Performed By: #### 2 4323-8, 2776-08, ####[facility] LABCLIA [id number] [address] [address] [place] Calcium [Mass/Vol] 8.6 mg/dL Normal 8.5-10.2 [facility] Comment on above: Order Comment: Speci men Type: BLOOD SPECIMENOrdering Facility: [facility] Address: [address] [place] [address] Performed By: #### 2 4323-8, 2776-08, ####[facility] LABCLIA [id number] [facility] [address] [address] [place] Chloride [Moles/Vol] 100 mmol/L Normal 98-107 [facility] Comment on above: Order Comment: Speci men Type: BLOOD SPECIMENOrdering Facility: [facility] Address: [address] [place], [place] [address] Performed By: #### 2 4323-8, 2776-08, ####[facility] LABIA [id number] [address] [address] [place] CO2 [Moles/Vol] 28 mmol/L Normal 22-30 [facility] Comment on above: Order Comment: Speci men Type: BLOOD SPECIMENOrdering Facility: [facility] Address: [address] [place] [address] Performed By: #### 2 4323-8, 27702-17, ####[facility] [id number] [place] [id number] [place] Creatinine [Mass/Vol] 2.57 mg/dL High 0.73-1.22 [facility] Comment on above: Order Comment: Speci men Type: BLOOD SPECIMENOrdering Facility: [facility] Address: [address] [place] [address] Performed By: #### 2 4323-8, 2776-08, ####[facility] [id number] [place] [id number] [place] Creatinine and Glomerular filtration rate.predicted panel (S/P/Bld) 25 mL/min/1.73m??? Low >=60 [facility] Comment on above: Order Comment: Speci men Type: BLOOD SPECIMENOrdering Facility: [facility] Address: [address] [place], [place] [address] Result Comment: Maggy mated Glomerular Filtration Rate (eGFR) is calculated using the 2020 CKD-EPI creatinine equation. This equation utilizes serum creatinine, sex, and age as parameters. The creatinine assay has traceable calibration to isotope dilution-mass spectrometry. Refer to KDIGO guidelines for clinical interpretation. In patients with unstable renal function, e.g. those with acute kidney injury, the eGFR may not accurately reflect actual GFR. Performed By: #### 2 4323-8, 2776-08, ####[facility] LABCLIA [id number] [address] [address] [place] Glucose [Mass/Vol] 89 mg/dL Normal 74-99 [facility] Comment on above: Order Comment: Vandana aguero Type: BLOOD SPECIMENOrdering Facility: [facility] Address: [address] [place] [address] Result Comment: The [place] Diabetes [employer] (ADA) provides guidance for cutoff values for fasting glucose and random glucose. The ADA defines fasting as no caloric intake for at least 8 hours. Fasting plasma glucose results between 100 to 125 mg/dL indicate increased risk for diabetes (prediabetes).Fasting plasma glucose results greater than or equal to 126 mg/dL meet the criteria for diagnosis of diabetes. In the absence of unequivocal hyperglycemia, results should be confirmed by repeat testing. In a patient with classic symptoms of hyperglycemia or hyperglycemic crisis, random plasma glucose results greater than or equal to 200 mg/dL meet the criteria for diagnosis of diabetes.Reference: Standards of Medical Care in Diabetes 2016, [place] [employer]. Diabetes Care. 2016.39(Suppl 1). Performed By: #### 2 4323-8, 2776-08, ####[facility] LABIA [id number] [address] [address] [place] Protein [Mass/Vol] 5.9 g/dL Low 6.3-8.0 [facility] Comment on above: Order Comment: Vandana aguero Type: BLOOD SPECIMENOrdering Facility: [facility] Address: [address] [place] [address] Performed By: #### 2 4323-8, 27702-17, ####[facility] LABIA [id number] [address] [address] [place] Urea nitrogen [Mass/Vol] 46 mg/dL High 9-24 [facility] Comment on above: Order Comment: Nayi men Type: BLOOD SPECIMENOrdering Facility: [facility] Address: [address] [place] [address] Performed By: #### 2 4323-8, 27771, ####[facility] LABCLIA [id number] [place] [id number] [place] Magnesium SerPl-mCncon 01-08 Magnesium [Mass/Vol] 2.2 mg/dL Normal 1.7-2.3 [facility] Comment on above: Order Comment: Speci men Type: BLOOD SPECIMENOrdering Facility: [facility] Address: [address] [place] [address] Performed By: #### 2 4323-8, 27702-17, ####[facility] LABCLIA [id number] [address] [place] Phosphate SerPl-mCncon 01-08 Phosphate [Mass/Vol] 2.8 mg/dL Normal 2.7-4.8 [facility] Comment on above: Order Comment: Speci men Type: BLOOD SPECIMENOrdering Facility: [facility] Address: [address] [place] [address] Performed By: #### 2 4323-8, 27702-17, ####[facility] LABIA [id number] [place] [address] [place] THERAPY NTon 01-08-2025 THERAPY NT Normal [facility] XR CHEST 1V FRONTAL PORTon 0 01-08-2025 XR CHEST 1V FRONTAL PORT Normal [facility] ARTERIAL BLOOD GASESon 01-07 Base excess Calc (Bld) [Moles/Vol] 6 mmol/L High 0-2 [facility] Comment on above: Order Comment: Speci men Type: ARTERIAL BLOOD SPECIMENOrdering Facility: [facility] Address: [address] [place] [address] Performed By: #### A LLBG ####[facility] LABCLIA [id number] [address] [place] Body temperature 98.6 [degF] Normal [facility] Comment on above: Order Comment: Speci men Type: ARTERIAL BLOOD SPECIMENOrdering Facility: [facility] Address: [address] [place] [address] Performed By: #### A LLBG ####[facility] LABIA [id number] [place] [address] [place] Calcium.ionized (Bld) [Mass/Vol] 1.17 mmol/L Normal 1.08-1.30 [facility] Comment on above: Order Comment: Speci men Type: ARTERIAL BLOOD SPECIMENOrdering Facility: [facility] Address: [address] [place] [address] Performed By: #### A LLBG ####[facility] LABIA [id number] [place] [address] [place] Calcium.ionized adjusted to pH 7.4 (BldA) [Moles/Vol] 1.17 mmol/L Normal 1.08-1.30 [facility] Comment on above: Order Comment: Speci men Type: ARTERIAL BLOOD SPECIMENOrdering Facility: [facility] Address: [address] [place] [address] Performed By: #### A LLBG ####[facility] LABIA [id number] [place] [address] [place] Carboxyhemoglobin (BldA) [Mass fraction] 1.5 % Normal 0.0-2.0 [facility] Comment on above: Order Comment: Speci men Type: ARTERIAL BLOOD SPECIMENOrdering Facility: [facility] Address: [address] [place] [address] Result Comment: Carb oxyhemoglobin Reference Range for Smokers: 2.0-8.0% Performed By: #### A LLBG ####[facility] LABIA [id number] [place] [address] [place] CO2 (Bld) [Partial pressure] 51 mm Hg High 36-46 [facility] Comment on above: Order Comment: Speci men Type: ARTERIAL BLOOD SPECIMENOrdering Facility: [facility] Address: [address] [place] [address] Performed By: #### A LLBG ####[facility] LABCLIA [id number] [place] [address] [place] Glucose [Mass/Vol] 97 mg/dL Normal 60-105 [facility] Comment on above: Order Comment: Speci men Type: ARTERIAL BLOOD SPECIMENOrdering Facility: [facility] Address: [address] [place] [address] Performed By: #### A LLBG ####[facility] LABCLIA [id number] [place] [address] [place] HCO3 (Bld) [Moles/Vol] 31 mmol/L High 22-26 [facility] Comment on above: Order Comment: Speci men Type: ARTERIAL BLOOD SPECIMENOrdering Facility: [facility] Address: [address] [place] [address] Performed By: #### A LLBG ####[facility] LABCLIA [id number] [place] [address] [place] Hematocrit (Bld) [Volume fraction] 27.8 % Low 39.0-51.0 [facility] Comment on above: Order Comment: Speci men Type: ARTERIAL BLOOD SPECIMENOrdering Facility: [facility] Address: [address] [place] [address] Performed By: #### A LLBG ####[facility] LABCLIA [id number] [place] [id number] [place] Hemoglobin (Bld) [Mass/Vol] 9.0 g/dL Low 13.0-17.0 [facility] Comment on above: Order Comment: Speci men Type: ARTERIAL BLOOD SPECIMENOrdering Facility: [facility] Address: [address] [place] [address] Performed By: #### A LLBG ####[facility] LABCLIA [id number] [address] [address] [place] Lactate [Moles/Vol] 0.7 mmol/L Normal 0.5-2.[address] [facility] Comment on above: Order Comment: Speci men Type: ARTERIAL BLOOD SPECIMENOrdering Facility: [facility] Address: [address] [place], [place] [address] Performed By: #### A LLBG ####[facility] LABIA [id number] [address] [address] [place] Methemoglobin (Bld) [Mass fraction] 0.8 % Normal 0.0-1.5 [facility] Comment on above: Order Comment: Speci men Type: ARTERIAL BLOOD SPECIMENOrdering Facility: [facility] Address: [address] [place], [place] [address] Performed By: #### A LLBG ####[facility] LABIA [id number] [place] [id number] [place] O2 THERAPY NC = Nasal Cannula Normal [facility] Comment on above: Order Comment: Speci men Type: ARTERIAL BLOOD SPECIMENOrdering Facility: [facility] Address: [address] [place] [address] Performed By: #### A LLBG ####[facility] LABIA [id number] [address] [address] [place] Oxygen (Bld) [Partial pressure] 93 mm Hg Normal 85-95 [facility] Comment on above: Order Comment: Speci men Type: ARTERIAL BLOOD SPECIMENOrdering Facility: [facility] Address: [address] [place] [address] Performed By: #### A LLBG ####[facility] LABIA [id number] [address] [address] [place] Oxyhemoglobin (BldA) [Mass fraction] 95 % Normal 95-98 [facility] Comment on above: Order Comment: Speci men Type: ARTERIAL BLOOD SPECIMENOrdering Facility: [facility] Address: [address] [place] [address] Performed By: #### A LLBG ####[facility] LABCLIA [id number] [place] [address] [place] pH (Bld) 7.40 [pH] Normal 7.35-7.45 [facility] Comment on above: Order Comment: Speci men Type: ARTERIAL BLOOD SPECIMENOrdering Facility: [facility] Address: [address] [place] [address] Performed By: #### A LLBG ####[facility] LABCLIA [id number] [place] [address] [place] Potassium [Moles/Vol] 4.1 mmol/L Normal 3.5-5.0 [facility] Comment on above: Order Comment: Speci men Type: ARTERIAL BLOOD SPECIMENOrdering Facility: [facility] Address: [address] [place] [address] Performed By: #### A LLBG ####[facility] LABCLIA [id number] [place] [address] [place] Sodium [Moles/Vol] 140 mmol/L Normal 136-144 [facility] Comment on above: Order Comment: Speci men Type: ARTERIAL BLOOD SPECIMENOrdering Facility: [facility] Address: [address] [place] [address] Performed By: #### A LLBG ####[facility] LABCLIA [id number] [place] [id number] [place] Base excess Calc (Bld) [Moles/Vol] 5 mmol/L High 0-2 [facility] Comment on above: Order Comment: Speci men Type: ARTERIAL BLOOD SPECIMENOrdering Facility: [facility] Address: [address] [place] [address] Performed By: #### A LLBG ####[facility] LABCLIA [id number] [place] [id number] [place] Body temperature 98.6 [degF] Normal [facility] Comment on above: Order Comment: Speci men Type: ARTERIAL BLOOD SPECIMENOrdering Facility: [facility] Address: [address] [place] [address] Performed By: #### A LLBG ####[facility] LABCLIA [id number] [place] [address] [place] Calcium.ionized (Bld) [Mass/Vol] 1.14 mmol/L Normal 1.08-1.30 [facility] Comment on above: Order Comment: Speci men Type: ARTERIAL BLOOD SPECIMENOrdering Facility: [facility] Address: [address] [place] [address] Performed By: #### A LLBG ####[facility] LABCLIA [id number] [place] [address] [place] Calcium.ionized adjusted to pH 7.4 (BldA) [Moles/Vol] 1.15 mmol/L Normal 1.08-1.30 [facility] Comment on above: Order Comment: Speci men Type: ARTERIAL BLOOD SPECIMENOrdering Facility: [facility] Address: [address] [place] [address] Performed By: #### A LLBG ####[facility] LABCLIA [id number] [place] [address] [place] Carboxyhemoglobin (BldA) [Mass fraction] 1.6 % Normal 0.0-2.0 [facility] Comment on above: Order Comment: Speci men Type: ARTERIAL BLOOD SPECIMENOrdering Facility: [facility] Address: [address] [place] [address] Result Comment: Carb oxyhemoglobin Reference Range for Smokers: 2.0-8.0% Performed By: #### A LLBG ####[facility] LABCLIA [id number] [place] [address] [place] CO2 (Bld) [Partial pressure] 47 mm Hg High 36-46 [facility] Comment on above: Order Comment: Speci men Type: ARTERIAL BLOOD SPECIMENOrdering Facility: [facility] Address: [address] [place] [address] Performed By: #### A LLBG ####[facility] LABCLIA [id number] [place] [address] [place] Glucose [Mass/Vol] 142 mg/dL High 60-105 [facility] Comment on above: Order Comment: Speci men Type: ARTERIAL BLOOD SPECIMENOrdering Facility: [facility] Address: [address] [place] [address] Performed By: #### A LLBG ####[facility] LABIA [id number] [place] [address] [place] HCO3 (Bld) [Moles/Vol] 30 mmol/L High 22-26 [facility] Comment on above: Order Comment: Speci men Type: ARTERIAL BLOOD SPECIMENOrdering Facility: [facility] Address: [address] [place] [address] Performed By: #### A LLBG ####[facility] LABIA [id number] [place] [address] [place] Hematocrit (Bld) [Volume fraction] 27.8 % Low 39.0-51.0 [facility] Comment on above: Order Comment: Speci men Type: ARTERIAL BLOOD SPECIMENOrdering Facility: [facility] Address: [address] [place] [address] Performed By: #### A LLBG ####[facility] LABIA [id number] [place] [id number] [place] Hemoglobin (Bld) [Mass/Vol] 9.0 g/dL Low 13.0-17.0 [facility] Comment on above: Order Comment: Speci men Type: ARTERIAL BLOOD SPECIMENOrdering Facility: [facility] Address: [address] [place] [address] Performed By: #### A LLBG ####[facility] LABCLIA [id number] [address] [address] [place] Lactate [Moles/Vol] 1.2 mmol/L Normal 0.5-2.[address] [facility] Comment on above: Order Comment: Speci men Type: ARTERIAL BLOOD SPECIMENOrdering Facility: [facility] Address: [address] [place], [place] [address] Performed By: #### A LLBG ####[facility] LABCLIA [id number] [address] [address] [place] Methemoglobin (Bld) [Mass fraction] 0.7 % Normal 0.0-1.5 [facility] Comment on above: Order Comment: Speci men Type: ARTERIAL BLOOD SPECIMENOrdering Facility: [facility] Address: [address] [place] [address] Performed By: #### A LLBG ####[facility] LABIA [id number] [place] [id number] [place] O2 THERAPY NC = Nasal Cannula Normal [facility] Comment on above: Order Comment: Speci men Type: ARTERIAL BLOOD SPECIMENOrdering Facility: [facility] Address: [address] [place] [address] Performed By: #### A LLBG ####[facility] LABCLIA [id number] [address] [address] [place] Oxygen (Bld) [Partial pressure] 94 mm Hg Normal 85-95 [facility] Comment on above: Order Comment: Speci men Type: ARTERIAL BLOOD SPECIMENOrdering Facility: [facility] Address: [address] [place], [place] [address] Performed By: #### A LLBG ####[facility] LABCLIA [id number] [address] [address] [place] Oxyhemoglobin (BldA) [Mass fraction] 96 % Normal 95-98 [facility] Comment on above: Order Comment: Speci men Type: ARTERIAL BLOOD SPECIMENOrdering Facility: [facility] Address: [address] [place] [address] Performed By: #### A LLBG ####[facility] LABCLIA [id number] [place] [address] [place] pH (Bld) 7.42 [pH] Normal 7.35-7.45 [facility] Comment on above: Order Comment: Speci men Type: ARTERIAL BLOOD SPECIMENOrdering Facility: [facility] Address: [address] [place] [address] Performed By: #### A LLBG ####[facility] LABCLIA [id number] [place] [address] [place] Potassium [Moles/Vol] 4.3 mmol/L Normal 3.5-5.0 [facility] Comment on above: Order Comment: Speci men Type: ARTERIAL BLOOD SPECIMENOrdering Facility: [facility] Address: [address] [place] [address] Performed By: #### A LLBG ####[facility] LABCLIA [id number] [place] [address] [place] Sodium [Moles/Vol] 140 mmol/L Normal 136-144 [facility] Comment on above: Order Comment: Speci men Type: ARTERIAL BLOOD SPECIMENOrdering Facility: [facility] Address: [address] [place] [address] Performed By: #### A LLBG ####[facility] LABCLIA [id number] [place] [id number] [place] Base excess Calc (Bld) [Moles/Vol] 6 mmol/L High 0-2 [facility] Comment on above: Order Comment: Speci men Type: ARTERIAL BLOOD SPECIMENOrdering Facility: [facility] Address: [address] [place] [address] Performed By: #### A LLBG ####[facility] LABCLIA [id number] [place] [address] [place] Body temperature 98.6 [degF] Normal [facility] Comment on above: Order Comment: Speci men Type: ARTERIAL BLOOD SPECIMENOrdering Facility: [facility] Address: [address] [place] [address] Performed By: #### A LLBG ####[facility] LABCLIA [id number] [place] [address] [place] Calcium.ionized (Bld) [Mass/Vol] 1.14 mmol/L Normal 1.08-1.30 [facility] Comment on above: Order Comment: Speci men Type: ARTERIAL BLOOD SPECIMENOrdering Facility: [facility] Address: [address] [place] [address] Performed By: #### A LLBG ####[facility] LABCLIA [id number] [place] [address] [place] Calcium.ionized adjusted to pH 7.4 (BldA) [Moles/Vol] 1.15 mmol/L Normal 1.08-1.30 [facility] Comment on above: Order Comment: Speci men Type: ARTERIAL BLOOD SPECIMENOrdering Facility: [facility] Address: [address] [place] [address] Performed By: #### A LLBG ####[facility] LABCLIA [id number] [place] [address] [place] Carboxyhemoglobin (BldA) [Mass fraction] 1.4 % Normal 0.0-2.0 [facility] Comment on above: Order Comment: Speci men Type: ARTERIAL BLOOD SPECIMENOrdering Facility: [facility] Address: [address] [place] [address] Performed By: #### A LLBG ####[facility] LABCLIA [id number] [place] [id number] [place] CO2 (Bld) [Partial pressure] 49 mm Hg High 36-46 [facility] Comment on above: Order Comment: Speci men Type: ARTERIAL BLOOD SPECIMENOrdering Facility: [facility] Address: [address] [place] [address] Performed By: #### A LLBG ####[facility] LABCLIA [id number] [place] [id number] [place] Glucose [Mass/Vol] 174 mg/dL High 60-105 [facility] Comment on above: Order Comment: Speci men Type: ARTERIAL BLOOD SPECIMENOrdering Facility: [facility] Address: [address] [place] [address] Performed By: #### A LLBG ####[facility] LABCLIA [id number] [place] [id number] [place] HCO3 (Bld) [Moles/Vol] 30 mmol/L High 22-26 [facility] Comment on above: Order Comment: Speci men Type: ARTERIAL BLOOD SPECIMENOrdering Facility: [facility] Address: [address] [place] [address] Performed By: #### A LLBG ####[facility] LABCLIA [id number] [place] [address] [place] Hematocrit (Bld) [Volume fraction] 29.4 % Low 39.0-51.0 [facility] Comment on above: Order Comment: Speci men Type: ARTERIAL BLOOD SPECIMENOrdering Facility: [facility] Address: [address] [place] [address] Performed By: #### A LLBG ####[facility] LABCLIA [id number] [place] [id number] [place] Hemoglobin (Bld) [Mass/Vol] 9.5 g/dL Low 13.0-17.0 [facility] Comment on above: Order Comment: Speci men Type: ARTERIAL BLOOD SPECIMENOrdering Facility: [facility] Address: [address] [place] [address] Performed By: #### A LLBG ####[facility] LABCLIA [id number] [address] [address] [place] Lactate [Moles/Vol] 1.9 mmol/L Normal 0.5-2.[address] [facility] Comment on above: Order Comment: Speci men Type: ARTERIAL BLOOD SPECIMENOrdering Facility: [facility] Address: [address] [place], [place] [id number] Performed By: #### A LLBG ####[facility] LABIA [id number] [place] [id number] [place] Methemoglobin (Bld) [Mass fraction] 1.3 % Normal 0.0-1.5 [facility] Comment on above: Order Comment: Speci men Type: ARTERIAL BLOOD SPECIMENOrdering Facility: [facility] Address: [address] [place] [address] Performed By: #### A LLBG ####[facility] [facility] [id number] [place] [id number] [place] O2 THERAPY NC = Nasal Cannula Normal [facility] Comment on above: Order Comment: Speci men Type: ARTERIAL BLOOD SPECIMENOrdering Facility: [facility] Address: [address] [place], [place] [address] Performed By: #### A LLBG ####[facility] [id number] [address] [address] [place] Oxygen (Bld) [Partial pressure] 119 mm Hg High 85-95 [facility] Comment on above: Order Comment: Speci men Type: ARTERIAL BLOOD SPECIMENOrdering Facility: [facility] Address: [address] [place], [place] [address] Performed By: #### A LLBG ####[facility] [id number] [address] [address] [place] Oxyhemoglobin (BldA) [Mass fraction] 96 % Normal 95-98 [facility] Comment on above: Order Comment: Speci men Type: ARTERIAL BLOOD SPECIMENOrdering Facility: [facility] Address: [address] [place] [address] Performed By: #### A LLBG ####[facility] [id number] [place] [address] [place] pH (Bld) 7.41 [pH] Normal 7.35-7.45 [facility] Comment on above: Order Comment: Speci men Type: ARTERIAL BLOOD SPECIMENOrdering Facility: [facility] Address: [address] [place] [address] Performed By: #### A LLBG ####[facility] [id number] [place] [address] [place] Potassium [Moles/Vol] 4.2 mmol/L Normal 3.5-5.0 [facility] Comment on above: Order Comment: Speci men Type: ARTERIAL BLOOD SPECIMENOrdering Facility: [facility] Address: [address] [place] [address] Performed By: #### A LLBG ####[facility] [id number] [place] [address] [place] Sodium [Moles/Vol] 139 mmol/L Normal 136-144 [facility] Comment on above: Order Comment: Speci men Type: ARTERIAL BLOOD SPECIMENOrdering Facility: [facility] Address: [address] [place] [address] Performed By: #### A LLBG ####[facility] [id number] [place] [id number] [place] Base excess Calc (Bld) [Moles/Vol] 7 mmol/L High 0-2 [facility] Comment on above: Order Comment: Speci men Type: ARTERIAL BLOOD SPECIMENOrdering Facility: [facility] Address: [address] [place] [address] Performed By: #### A LLBG ####[facility] [id number] [place] [id number] [place] Body temperature 98.6 [degF] Normal [facility] Comment on above: Order Comment: Speci men Type: ARTERIAL BLOOD SPECIMENOrdering Facility: [facility] Address: [address] [place] [address] Performed By: #### A LLBG ####[facility] [id number] [place] [address] [place] Calcium.ionized (Bld) [Mass/Vol] 1.12 mmol/L Normal 1.08-1.30 [facility] Comment on above: Order Comment: Speci men Type: ARTERIAL BLOOD SPECIMENOrdering Facility: [facility] Address: [address] [place] [address] Performed By: #### A LLBG ####[facility] [id number] [place] [address] [place] Calcium.ionized adjusted to pH 7.4 (BldA) [Moles/Vol] 1.14 mmol/L Normal 1.08-1.30 [facility] Comment on above: Order Comment: Speci men Type: ARTERIAL BLOOD SPECIMENOrdering Facility: [facility] Address: [address] [place] [address] Performed By: #### A LLBG ####[facility] [id number] [place] [address] [place] Carboxyhemoglobin (BldA) [Mass fraction] 1.7 % Normal 0.0-2.0 [facility] Comment on above: Order Comment: Speci men Type: ARTERIAL BLOOD SPECIMENOrdering Facility: [facility] Address: [address] [place] [address] Result Comment: Carb oxyhemoglobin Reference Range for Smokers: 2.0-8.0% Performed By: #### A LLBG ####[facility] [id number] [place] [address] [place] CO2 (Bld) [Partial pressure] 48 mm Hg High 36-46 [facility] Comment on above: Order Comment: Speci men Type: ARTERIAL BLOOD SPECIMENOrdering Facility: [facility] Address: [address] [place] [address] Performed By: #### A LLBG ####[facility] [id number] [place] [id number] [place] Glucose [Mass/Vol] 186 mg/dL High 60-105 [facility] Comment on above: Order Comment: Speci men Type: ARTERIAL BLOOD SPECIMENOrdering Facility: [facility] Address: [address] [place] [address] Performed By: #### A LLBG ####[facility] [id number] [place] [address] [place] HCO3 (Bld) [Moles/Vol] 31 mmol/L High 22-26 [facility] Comment on above: Order Comment: Speci men Type: ARTERIAL BLOOD SPECIMENOrdering Facility: [facility] Address: [address] [place] [address] Performed By: #### A LLBG ####[facility] [id number] [place] [address] [place] Hematocrit (Bld) [Volume fraction] 27.4 % Low 39.0-51.0 [facility] Comment on above: Order Comment: Speci men Type: ARTERIAL BLOOD SPECIMENOrdering Facility: [facility] Address: [address] [place] [address] Performed By: #### A LLBG ####[facility] [id number] [place] [id number] [place] Hemoglobin (Bld) [Mass/Vol] 8.8 g/dL Low 13.0-17.0 [facility] Comment on above: Order Comment: Speci men Type: ARTERIAL BLOOD SPECIMENOrdering Facility: [facility] Address: [address] [place] [address] Performed By: #### A LLBG ####[facility] [id number] [address] [address] [place] Lactate [Moles/Vol] 1.1 mmol/L Normal 0.5-2.[address] [facility] Comment on above: Order Comment: Speci men Type: ARTERIAL BLOOD SPECIMENOrdering Facility: [facility] Address: [address] [place] [address] Performed By: #### A LLBG ####[facility] [id number] [address] [address] [place] Methemoglobin (Bld) [Mass fraction] 0.9 % Normal 0.0-1.5 [facility] Comment on above: Order Comment: Speci men Type: ARTERIAL BLOOD SPECIMENOrdering Facility: [facility] Address: [address] [place] [address] Performed By: #### A LLBG ####[facility] [id number] [place] [address] [place] O2 THERAPY NC = Nasal Cannula Normal [facility] Comment on above: Order Comment: Speci men Type: ARTERIAL BLOOD SPECIMENOrdering Facility: [facility] Address: [address] [place] [address] Performed By: #### A LLBG ####[facility] [id number] [place] [id number] [place] Oxygen (Bld) [Partial pressure] 131 mm Hg High 85-95 [facility] Comment on above: Order Comment: Speci men Type: ARTERIAL BLOOD SPECIMENOrdering Facility: [facility] Address: [address] [place] [address] Performed By: #### A LLBG ####[facility] [id number] [address] [place] [address] [place] Oxyhemoglobin (BldA) [Mass fraction] 97 % Normal 95-98 [facility] Comment on above: Order Comment: Speci men Type: ARTERIAL BLOOD SPECIMENOrdering Facility: [facility] Address: [address] [place] [address] Performed By: #### A LLBG ####[facility] [id number] [place] [id number] [place] pH (Bld) 7.43 [pH] Normal 7.35-7.45 [facility] Comment on above: Order Comment: Speci men Type: ARTERIAL BLOOD SPECIMENOrdering Facility: [facility] Address: [address] [place] [address] Performed By: #### A LLBG ####[facility] [id number] [place] [address] [place] Potassium [Moles/Vol] 4.2 mmol/L Normal 3.5-5.0 [facility] Comment on above: Order Comment: Speci men Type: ARTERIAL BLOOD SPECIMENOrdering Facility: [facility] Address: [address] [place] [address] Performed By: #### A LLBG ####[facility] [id number] [place] [address] [place] Sodium [Moles/Vol] 139 mmol/L Normal 136-144 [facility] Comment on above: Order Comment: Speci men Type: ARTERIAL BLOOD SPECIMENOrdering Facility: [facility] Address: [address] [place] [address] Performed By: #### A LLBG ####[facility] [id number] [place] [id number] [place] Base excess Calc (Bld) [Moles/Vol] 7 mmol/L High 0-2 [facility] Comment on above: Order Comment: Speci men Type: ARTERIAL BLOOD SPECIMENOrdering Facility: [facility] Address: [address] [place] [address] Performed By: #### A LLBG ####[facility] [id number] [place] [address] [place] Body temperature 98.6 [degF] Normal [facility] Comment on above: Order Comment: Speci men Type: ARTERIAL BLOOD SPECIMENOrdering Facility: [facility] Address: [address] [place] [address] Performed By: #### A LLBG ####[facility] [id number] [place] [address] [place] Calcium.ionized (Bld) [Mass/Vol] 1.12 mmol/L Normal 1.08-1.30 [facility] Comment on above: Order Comment: Speci men Type: ARTERIAL BLOOD SPECIMENOrdering Facility: [facility] Address: [address] [place] [address] Performed By: #### A LLBG ####[facility] [id number] [place] [address] [place] Calcium.ionized adjusted to pH 7.4 (BldA) [Moles/Vol] 1.13 mmol/L Normal 1.08-1.30 [facility] Comment on above: Order Comment: Speci men Type: ARTERIAL BLOOD SPECIMENOrdering Facility: [facility] Address: [address] [place] [address] Performed By: #### A LLBG ####[facility] [id number] [place] [address] [place] Carboxyhemoglobin (BldA) [Mass fraction] 1.7 % Normal 0.0-2.0 [facility] Comment on above: Order Comment: Speci men Type: ARTERIAL BLOOD SPECIMENOrdering Facility: [facility] Address: [address] [place] [address] Result Comment: Carb oxyhemoglobin Reference Range for Smokers: 2.0-8.0% Performed By: #### A LLBG ####[facility] [id number] [place] [address] [place] CO2 (Bld) [Partial pressure] 51 mm Hg High 36-46 [facility] Comment on above: Order Comment: Speci men Type: ARTERIAL BLOOD SPECIMENOrdering Facility: [facility] Address: [address] [place] [address] Performed By: #### A LLBG ####[facility] [id number] [place] [address] [place] Glucose [Mass/Vol] 193 mg/dL High 60-105 [facility] Comment on above: Order Comment: Speci men Type: ARTERIAL BLOOD SPECIMENOrdering Facility: [facility] Address: [address] [place] [address] Performed By: #### A LLBG ####[facility] [id number] [place] [address] [place] HCO3 (Bld) [Moles/Vol] 32 mmol/L High 22-26 [facility] Comment on above: Order Comment: Speci men Type: ARTERIAL BLOOD SPECIMENOrdering Facility: [facility] Address: [address] [place] [address] Performed By: #### A LLBG ####[facility] [id number] [place] [address] [place] Hematocrit (Bld) [Volume fraction] 27.9 % Low 39.0-51.0 [facility] Comment on above: Order Comment: Speci men Type: ARTERIAL BLOOD SPECIMENOrdering Facility: [facility] Address: [address] [place] [address] Performed By: #### A LLBG ####[facility] [id number] [place] [id number] [place] Hemoglobin (Bld) [Mass/Vol] 9.0 g/dL Low 13.0-17.0 [facility] Comment on above: Order Comment: Speci men Type: ARTERIAL BLOOD SPECIMENOrdering Facility: [facility] Address: [address] [place] [address] Performed By: #### A LLBG ####[facility] [id number] [place] [id number] [place] Lactate [Moles/Vol] 0.7 mmol/L Normal 0.5-2.[address] [facility] Comment on above: Order Comment: Speci men Type: ARTERIAL BLOOD SPECIMENOrdering Facility: [facility] Address: [address] [place] [address] Performed By: #### A LLBG ####[facility] [id number] [place] [address] [place] Methemoglobin (Bld) [Mass fraction] 1.0 % Normal 0.0-1.5 [facility] Comment on above: Order Comment: Speci men Type: ARTERIAL BLOOD SPECIMENOrdering Facility: [facility] Address: [address] [place] [address] Performed By: #### A LLBG ####[facility] [id number] [place] [address] [place] O2 THERAPY NC = Nasal Cannula Normal [facility] Comment on above: Order Comment: Speci men Type: ARTERIAL BLOOD SPECIMENOrdering Facility: [facility] Address: [address] [place] [address] Performed By: #### A LLBG ####[facility] [id number] [place] [id number] [place] Oxygen (Bld) [Partial pressure] 149 mm Hg High 85-95 [facility] Comment on above: Order Comment: Speci men Type: ARTERIAL BLOOD SPECIMENOrdering Facility: [facility] Address: [address] [place] [address] Performed By: #### A LLBG ####[facility] [id number] [place] [id number] [place] Oxyhemoglobin (BldA) [Mass fraction] 97 % Normal 95-98 [facility] Comment on above: Order Comment: Speci men Type: ARTERIAL BLOOD SPECIMENOrdering Facility: [facility] Address: [address] [place] [address] Performed By: #### A LLBG ####[facility] [id number] [address] [address] [place] pH (Bld) 7.42 [pH] Normal 7.35-7.45 [facility] Comment on above: Order Comment: Speci men Type: ARTERIAL BLOOD SPECIMENOrdering Facility: [facility] Address: [address] [place] [address] Performed By: #### A LLBG ####[facility] [id number] [place] [address] [place] Potassium [Moles/Vol] 4.6 mmol/L Normal 3.5-5.0 [facility] Comment on above: Order Comment: Speci men Type: ARTERIAL BLOOD SPECIMENOrdering Facility: [facility] Address: [address] [place] [address] Performed By: #### A LLBG ####[facility] [id number] [place] [address] [place] Sodium [Moles/Vol] 138 mmol/L Normal 136-144 [facility] Comment on above: Order Comment: Speci men Type: ARTERIAL BLOOD SPECIMENOrdering Facility: [facility] Address: [address] [place] [address] Performed By: #### A LLBG ####[facility] [id number] [place] [id number] [place] CBC panel Auto (Bld)on 01-07 Erythrocyte distribution width (RBC) [Ratio] 15.2 % High 11.5-15.0 [facility] Comment on above: Order Comment: Speci men Type: BLOOD SPECIMENOrdering Facility: [facility] Address: [address] [place] [address] Performed By: #### 5 8410-2 ####[facility] [id number] [address], [place] [address] [place] Hematocrit (Bld) [Volume fraction] 25.8 % Low 39.0-51.0 [facility] Comment on above: Order Comment: Speci men Type: BLOOD SPECIMENOrdering Facility: [facility] Address: [address] [place] [address] Performed By: #### 5 8410-2 ####[facility] [id number] [place] [address] [place] Hemoglobin (Bld) [Mass/Vol] 8.2 g/dL Low 13.0-17.0 [facility] Comment on above: Order Comment: Speci men Type: BLOOD SPECIMENOrdering Facility: [facility] Address: [address] [place] [address] Performed By: #### 5 8410-2 ####[facility] [id number] [place] [id number] [place] MCH (RBC) [Entitic mass] 31.7 pg Normal 26.0-34.0 [facility] Comment on above: Order Comment: Speci men Type: BLOOD SPECIMENOrdering Facility: [facility] Address: [address] [place] [address] Performed By: #### 5 8410-2 ####[facility] [id number] [place] [id number] [place] MCHC (RBC) [Mass/Vol] 31.8 g/dL Normal 30.5-36.0 [facility] Comment on above: Order Comment: Speci men Type: BLOOD SPECIMENOrdering Facility: [facility] Address: [address] [place] [address] Performed By: #### 5 8410-2 ####[facility] [id number] [place] [id number] [place] MCV (RBC) [Entitic vol] 99.6 fL Normal 80.0-100.0 [facility] Comment on above: Order Comment: Speci men Type: BLOOD SPECIMENOrdering Facility: [facility] Address: [address] [place] [address] Performed By: #### 5 8410-2 ####[facility] [id number] [place] [address] [place] Nucleated RBC (Bld) [#/Vol] 10*3/uL Normal <0.01 [facility] Comment on above: Order Comment: Speci men Type: BLOOD SPECIMENOrdering Facility: [facility] Address: [address] [place] [address] Performed By: #### 5 8410-2 ####[facility] [id number] [place] [address] [place] Platelet mean volume (Bld) [Entitic vol] 11.4 fL Normal 9.0-12.7 [facility] Comment on above: Order Comment: Speci men Type: BLOOD SPECIMENOrdering Facility: [facility] Address: [address] [place] [address] Performed By: #### 5 8410-2 ####[facility] [id number] [place] [address] [place] Platelets (Bld) [#/Vol] 129 10*3/uL Low 150-400 [facility] Comment on above: Order Comment: Speci men Type: BLOOD SPECIMENOrdering Facility: [facility] Address: [address] [place] [address] Result Comment: No c lot detected.Results checked and verified. Performed By: #### 5 8410-2 ####[facility] [id number] [place] [address] [place] RBC (Bld) [#/Vol] 2.59 10*6/uL Low 4.20-6.[address] [facility] Comment on above: Order Comment: Speci men Type: BLOOD SPECIMENOrdering Facility: [facility] Address: [address] [place] [address] Performed By: #### 5 8410-2 ####[facility] [id number] [address] [address] [place] WBC (Bld) [#/Vol] 10.34 10*3/uL Normal 3.70-11.00 [facility] Comment on above: Order Comment: Speci men Type: BLOOD SPECIMENOrdering Facility: [facility] Address: [address] [place] [address] Performed By: #### 5 8410-2 ####[facility] [id number] [place] [address] [place] CONSULT PROGon 01-07-2025 CONSULT PROG Normal [facility] CONSULT PROG Normal [facility] Comprehensive metabolic 2000 panelon 01-07-2025 Albumin [Mass/Vol] 2.9 g/dL Low 3.9-4.9 [facility] Comment on above: Order Comment: Speci men Type: BLOOD SPECIMENOrdering Facility: [facility] Address: [address] [place] [address] Performed By: #### 2 4323-8, 83987-0, 2777-1 ####[facility] [id number] [place] [address] [place] ALP [Catalytic activity/Vol] 101 U/L Normal 38-113 [facility] Comment on above: Order Comment: Speci men Type: BLOOD SPECIMENOrdering Facility: [facility] Address: [address] [place] [address] Performed By: #### 2 4323-8, 43145-0, 2777-1 ####[facility] [id number] [place] [address] [place] ALT [Catalytic activity/Vol] 7 U/L Low 10-54 [facility] Comment on above: Order Comment: Speci men Type: BLOOD SPECIMENOrdering Facility: [facility] Address: [address] [place] [address] Performed By: #### 2 4323-8, , 2776-08 ####[facility] [id number] [facility] [place] [address] [place] Anion gap [Moles/Vol] 13 mmol/L Normal 8-15 [facility] Comment on above: Order Comment: Speci men Type: BLOOD SPECIMENOrdering Facility: [facility] Address: [address] [place] [address] Performed By: #### 2 4323-8, , 2776-08 ####[facility] [id number] [place] [address] [place] AST [Catalytic activity/Vol] 25 U/L Normal 14-40 [facility] Comment on above: Order Comment: Speci men Type: BLOOD SPECIMENOrdering Facility: [facility] Address: [address] [place] [address] Performed By: #### 2 4323-8, , 2776-08 ####[facility] [id number] [place] [id number] [place] Bilirubin [Mass/Vol] 0.5 mg/dL Normal 0.2-1.3 [facility] Comment on above: Order Comment: Speci men Type: BLOOD SPECIMENOrdering Facility: [facility] Address: [address] [place], [place] [address] Performed By: #### 2 4323-8, , 2776-08 ####[facility] [id number] [facility] [address] [address] [place] Calcium [Mass/Vol] 8.4 mg/dL Low 8.5-10.2 [facility] Comment on above: Order Comment: Speci men Type: BLOOD SPECIMENOrdering Facility: [facility] Address: [address] [place], [place] [address] Performed By: #### 2 4323-8, , 2776-08 ####[facility] [id number] [address] [address] [place] Chloride [Moles/Vol] 101 mmol/L Normal 98-107 [facility] Comment on above: Order Comment: Speci men Type: BLOOD SPECIMENOrdering Facility: [facility] Address: [address] [place], [place] [address] Performed By: #### 2 4323-8, , 2776-08 ####[facility] LABCLIA [id number] [place] [address] [place] CO2 [Moles/Vol] 28 mmol/L Normal 22-30 [facility] Comment on above: Order Comment: Speci men Type: BLOOD SPECIMENOrdering Facility: [facility] Address: [address] [place], [place] [address] Performed By: #### 2 4323-8, , 2776-08 ####[facility] LABCLIA [id number] [place] [address] [place] Creatinine [Mass/Vol] 3.66 mg/dL High 0.73-1.22 [facility] Comment on above: Order Comment: Speci men Type: BLOOD SPECIMENOrdering Facility: [facility] Address: [address] [place], [place] [address] Performed By: #### 2 4323-8, , 2776-08 ####[facility] LABCLIA [id number] [place] [id number] [place] Creatinine and Glomerular filtration rate.predicted panel (S/P/Bld) 16 mL/min/1.73m??? Low >=60 [facility] Comment on above: Order Comment: Speci men Type: BLOOD SPECIMENOrdering Facility: [facility] Address: [address] [place] [address] Result Comment: Maggy mated Glomerular Filtration Rate (eGFR) is calculated using the 2020 CKD-EPI creatinine equation. This equation utilizes serum creatinine, sex, and age as parameters. The creatinine assay has traceable calibration to isotope dilution-mass spectrometry. Refer to KDIGO guidelines for clinical interpretation. In patients with unstable renal function, e.g. those with acute kidney injury, the eGFR may not accurately reflect actual GFR. Performed By: #### 2 4323-8, , 2776-08 ####[facility] LABIA [id number] [place] [id number] [place] Glucose [Mass/Vol] 117 mg/dL High 74-99 [facility] Comment on above: Order Comment: Vandana aguero Type: BLOOD SPECIMENOrdering Facility: [facility] Address: [address] [place] [address] Result Comment: The [place] Diabetes [employer] (ADA) provides guidance for cutoff values for fasting glucose and random glucose. The ADA defines fasting as no caloric intake for at least 8 hours. Fasting plasma glucose results between 100 to 125 mg/dL indicate increased risk for diabetes (prediabetes).Fasting plasma glucose results greater than or equal to 126 mg/dL meet the criteria for diagnosis of diabetes. In the absence of unequivocal hyperglycemia, results should be confirmed by repeat testing. In a patient with classic symptoms of hyperglycemia or hyperglycemic crisis, random plasma glucose results greater than or equal to 200 mg/dL meet the criteria for diagnosis of diabetes.Reference: Standards of Medical Care in Diabetes 2016, [place] [employer]. Diabetes Care. 2016.39(Suppl 1). Performed By: #### 2 4323-8, , 2776-08 ####[facility] LABIA [id number] [place] [id number] [place] Potassium [Moles/Vol] 5.0 mmol/L Normal 3.7-5.1 [facility] Comment on above: Order Comment: Vandana aguero Type: BLOOD SPECIMENOrdering Facility: [facility] Address: [address] [place] [id number] Performed By: #### 2 4323-8, 95416-9, 2776- ####[facility] LABIA [id number] [address] [address] [place] Protein [Mass/Vol] 5.5 g/dL Low 6.3-8.0 [facility] Comment on above: Order Comment: Speci men Type: BLOOD SPECIMENOrdering Facility: [facility] Address: [address] [place], [place] [address] Performed By: #### 2 4323-8, 20271-8, 2776-08 ####[facility] LABIA [id number] [place] [id number] [place] Sodium [Moles/Vol] 142 mmol/L Normal 136-144 [facility] Comment on above: Order Comment: Speci men Type: BLOOD SPECIMENOrdering Facility: [facility] Address: [address] [place], [place] [address] Performed By: #### 2 4323-8, 04094-3, 2776-08 ####[facility] LABIA [id number] [place] [id number] [place] Urea nitrogen [Mass/Vol] 67 mg/dL High 9-24 [facility] Comment on above: Order Comment: Speci men Type: BLOOD SPECIMENOrdering Facility: [facility] Address: [address] [place], [place] [address] Performed By: #### 2 4323-8, 97436-0, 2776-08 ####[facility] [id number] [address] [address] [place] Magnesium SerPl-mCncon 01-07 Magnesium [Mass/Vol] 2.4 mg/dL High 1.7-2.3 [facility] Comment on above: Order Comment: Speci men Type: BLOOD SPECIMENOrdering Facility: [facility] Address: [address] [place], [place] [address] Performed By: #### 2 4323-8, 75224-0, 2776- ####[facility] LABCLIA [id number] [address] [place] Phosphate SerPl-mCncon 01-07 Phosphate [Mass/Vol] 3.4 mg/dL Normal 2.7-4.8 [facility] Comment on above: Order Comment: Speci men Type: BLOOD SPECIMENOrdering Facility: [facility] Address: [address] [place] [address] Result Comment: Resu lt rechecked. Performed By: #### 2 4323-8, 75767-6, 2776-08 ####[facility] LABCLIA [id number] [address] THERAPY NTon 01-07-2025 THERAPY NT Normal [facility] THERAPY NT Normal [facility] THERAPY NT Normal [facility] US LEG VEIN DVT JOSE A VAS LABo n 01-07-2025 US LEG VEIN DVT JOSE A VAS LAB Normal [facility] XR CHEST 1V FRONTAL PORTon 0 01-07-2025 XR CHEST 1V FRONTAL PORT Normal [facility] ARTERIAL BLOOD GASESon 01-06 Base excess Calc (Bld) [Moles/Vol] 8 mmol/L High 0-2 [facility] Comment on above: Order Comment: Speci men Type: ARTERIAL BLOOD SPECIMENOrdering Facility: [facility] Address: [address] [place] [address] Performed By: #### A LLBG ####[facility] LABCLIA [id number] [address] [place] Body temperature 98.6 [degF] Normal [facility] Comment on above: Order Comment: Speci men Type: ARTERIAL BLOOD SPECIMENOrdering Facility: [facility] Address: [address] [place] [address] Performed By: #### A LLBG ####[facility] LABCLIA [id number] [place] [address] [place] Calcium.ionized (Bld) [Mass/Vol] 1.10 mmol/L Normal 1.08-1.30 [facility] Comment on above: Order Comment: Speci men Type: ARTERIAL BLOOD SPECIMENOrdering Facility: [facility] Address: [address] [place] [address] Performed By: #### A LLBG ####[facility] LABCLIA [id number] [place] [address] [place] Calcium.ionized adjusted to pH 7.4 (BldA) [Moles/Vol] 1.14 mmol/L Normal 1.08-1.30 [facility] Comment on above: Order Comment: Speci men Type: ARTERIAL BLOOD SPECIMENOrdering Facility: [facility] Address: [address] [place] [address] Performed By: #### A LLBG ####[facility] LABIA [id number] [place] [address] [place] Carboxyhemoglobin (BldA) [Mass fraction] 2.4 % High 0.0-2.0 [facility] Comment on above: Order Comment: Speci men Type: ARTERIAL BLOOD SPECIMENOrdering Facility: [facility] Address: [address] [place] [address] Result Comment: Carb oxyhemoglobin Reference Range for Smokers: 2.0-8.0% Performed By: #### A LLBG ####[facility] LABCLIA [id number] [place] [address] [place] CO2 (Bld) [Partial pressure] 44 mm Hg Normal 36-46 [facility] Comment on above: Order Comment: Speci men Type: ARTERIAL BLOOD SPECIMENOrdering Facility: [facility] Address: [address] [place] [address] Performed By: #### A LLBG ####[facility] LABCLIA [id number] [place] [address] [place] Glucose [Mass/Vol] 119 mg/dL High 60-105 [facility] Comment on above: Order Comment: Speci men Type: ARTERIAL BLOOD SPECIMENOrdering Facility: [facility] Address: [address] [place] [address] Performed By: #### A LLBG ####[facility] LABCLIA [id number] [facility] [place] [address] [place] HCO3 (Bld) [Moles/Vol] 32 mmol/L High 22-26 [facility] Comment on above: Order Comment: Speci men Type: ARTERIAL BLOOD SPECIMENOrdering Facility: [facility] Address: [address] [place] [address] Performed By: #### A LLBG ####[facility] LABCLIA [id number] [place] [address] [place] Hematocrit (Bld) [Volume fraction] 24.8 % Low 39.0-51.0 [facility] Comment on above: Order Comment: Speci men Type: ARTERIAL BLOOD SPECIMENOrdering Facility: [facility] Address: [address] [place] [address] Performed By: #### A LLBG ####[facility] LABCLIA [id number] [place] [address] [place] Hemoglobin (Bld) [Mass/Vol] 7.9 g/dL Low 13.0-17.0 [facility] Comment on above: Order Comment: Speci men Type: ARTERIAL BLOOD SPECIMENOrdering Facility: [facility] Address: [address] [place] [address] Performed By: #### A LLBG ####[facility] LABCLIA [id number] [place] [id number] [place] Lactate [Moles/Vol] 0.9 mmol/L Normal 0.5-2.[address] [facility] Comment on above: Order Comment: Speci men Type: ARTERIAL BLOOD SPECIMENOrdering Facility: [facility] Address: [address] [place] [address] Performed By: #### A LLBG ####[facility] LABCLIA [id number] [place] [address] [place] Methemoglobin (Bld) [Mass fraction] 1.7 % High 0.0-1.5 [facility] Comment on above: Order Comment: Speci men Type: ARTERIAL BLOOD SPECIMENOrdering Facility: [facility] Address: [address] [place] [address] Performed By: #### A LLBG ####[facility] LABCLIA [id number] [place] [address] [place] O2 THERAPY NC = Nasal Cannula Normal [facility] Comment on above: Order Comment: Speci men Type: ARTERIAL BLOOD SPECIMENOrdering Facility: [facility] Address: [address] [place] [address] Performed By: #### A LLBG ####[facility] LABCLIA [id number] [place] [address] [place] Oxygen (Bld) [Partial pressure] 84 mm Hg Low 85-95 [facility] Comment on above: Order Comment: Speci men Type: ARTERIAL BLOOD SPECIMENOrdering Facility: [facility] Address: [address] [place] [address] Performed By: #### A LLBG ####[facility] LABCLIA [id number] [place] [id number] [place] Oxyhemoglobin (BldA) [Mass fraction] 94 % Low 95-98 [facility] Comment on above: Order Comment: Speci men Type: ARTERIAL BLOOD SPECIMENOrdering Facility: [facility] Address: [address] [place] [address] Performed By: #### A LLBG ####[facility] LABCLIA [id number] [place] [id number] [place] pH (Bld) 7.47 [pH] High 7.35-7.45 [facility] Comment on above: Order Comment: Speci men Type: ARTERIAL BLOOD SPECIMENOrdering Facility: [facility] Address: [address] [place] [address] Performed By: #### A LLBG ####[facility] LABCLIA [id number] [place] [address] [place] Potassium [Moles/Vol] 4.8 mmol/L Normal 3.5-5.0 [facility] Comment on above: Order Comment: Speci men Type: ARTERIAL BLOOD SPECIMENOrdering Facility: [facility] Address: [address] [place] [address] Performed By: #### A LLBG ####[facility] LABCLIA [id number] [place] [address] [place] Sodium [Moles/Vol] 139 mmol/L Normal 136-144 [facility] Comment on above: Order Comment: Speci men Type: ARTERIAL BLOOD SPECIMENOrdering Facility: [facility] Address: [address] [place] [address] Performed By: #### A LLBG ####[facility] LABCLIA [id number] [place] [address] [place] Base excess Calc (Bld) [Moles/Vol] 6 mmol/L High 0-2 [facility] Comment on above: Order Comment: Speci men Type: ARTERIAL BLOOD SPECIMENOrdering Facility: [facility] Address: [address] [place] [address] Performed By: #### A LLBG ####[facility] LABCLIA [id number] [place] [address] [place] Body temperature 98.6 [degF] Normal [facility] Comment on above: Order Comment: Speci men Type: ARTERIAL BLOOD SPECIMENOrdering Facility: [facility] Address: [address] [place] [address] Performed By: #### A LLBG ####[facility] LABCLIA [id number] [place] [address] [place] Calcium.ionized (Bld) [Mass/Vol] 1.15 mmol/L Normal 1.08-1.30 [facility] Comment on above: Order Comment: Speci men Type: ARTERIAL BLOOD SPECIMENOrdering Facility: [facility] Address: [address] [place] [address] Performed By: #### A LLBG ####[facility] LABIA [id number] [place] [address] [place] Calcium.ionized adjusted to pH 7.4 (BldA) [Moles/Vol] 1.16 mmol/L Normal 1.08-1.30 [facility] Comment on above: Order Comment: Speci men Type: ARTERIAL BLOOD SPECIMENOrdering Facility: [facility] Address: [address] [place] [address] Performed By: #### A LLBG ####[facility] [id number] [place] [address] [place] Carboxyhemoglobin (BldA) [Mass fraction] 1.9 % Normal 0.0-2.0 [facility] Comment on above: Order Comment: Speci men Type: ARTERIAL BLOOD SPECIMENOrdering Facility: [facility] Address: [address] [place] [address] Result Comment: Carb oxyhemoglobin Reference Range for Smokers: 2.0-8.0% Performed By: #### A LLBG ####[facility] LABIA [id number] [place] [address] [place] CO2 (Bld) [Partial pressure] 49 mm Hg High 36-46 [facility] Comment on above: Order Comment: Speci men Type: ARTERIAL BLOOD SPECIMENOrdering Facility: [facility] Address: [address] [place] [address] Performed By: #### A LLBG ####[facility] LABIA [id number] [place] [address] [place] Glucose [Mass/Vol] 132 mg/dL High 60-105 [facility] Comment on above: Order Comment: Speci men Type: ARTERIAL BLOOD SPECIMENOrdering Facility: [facility] Address: [address] [place] [address] Performed By: #### A LLBG ####[facility] LABCLIA [id number] [place] [address] [place] HCO3 (Bld) [Moles/Vol] 31 mmol/L High 22-26 [facility] Comment on above: Order Comment: Speci men Type: ARTERIAL BLOOD SPECIMENOrdering Facility: [facility] Address: [address] [place] [address] Performed By: #### A LLBG ####[facility] LABCLIA [id number] [place] [address] [place] Hematocrit (Bld) [Volume fraction] 26.8 % Low 39.0-51.0 [facility] Comment on above: Order Comment: Speci men Type: ARTERIAL BLOOD SPECIMENOrdering Facility: [facility] Address: [address] [place] [address] Performed By: #### A LLBG ####[facility] LABCLIA [id number] [place] [id number] [place] Hemoglobin (Bld) [Mass/Vol] 8.6 g/dL Low 13.0-17.0 [facility] Comment on above: Order Comment: Speci men Type: ARTERIAL BLOOD SPECIMENOrdering Facility: [facility] Address: [address] [place], [place] [address] Performed By: #### A LLBG ####[facility] LABCLIA [id number] [place] [id number] [place] Lactate [Moles/Vol] 0.9 mmol/L Normal 0.5-2.[address] [facility] Comment on above: Order Comment: Speci men Type: ARTERIAL BLOOD SPECIMENOrdering Facility: [facility] Address: [address] [id number] Performed By: #### A LLBG ####[facility] LABCLIA [id number] [address] [address] [place] Methemoglobin (Bld) [Mass fraction] 0.8 % Normal 0.0-1.5 [facility] Comment on above: Order Comment: Speci men Type: ARTERIAL BLOOD SPECIMENOrdering Facility: [facility] Address: [address] [place] [address] Performed By: #### A LLBG ####[facility] LABCLIA [id number] [place] [id number] [place] O2 THERAPY NC = Nasal Cannula Normal [facility] Comment on above: Order Comment: Speci men Type: ARTERIAL BLOOD SPECIMENOrdering Facility: [facility] Address: [address] [place] [address] Performed By: #### A LLBG ####[facility] LABCLIA [id number] [address] [address] [place] Oxygen (Bld) [Partial pressure] 83 mm Hg Low 85-95 [facility] Comment on above: Order Comment: Speci men Type: ARTERIAL BLOOD SPECIMENOrdering Facility: [facility] Address: [address] [place], [place] [address] Performed By: #### A LLBG ####[facility] LABCLIA [id number] [address] [address] [place] Oxyhemoglobin (BldA) [Mass fraction] 94 % Low 95-98 [facility] Comment on above: Order Comment: Speci men Type: ARTERIAL BLOOD SPECIMENOrdering Facility: [facility] Address: [address] [place], [place] [address] Performed By: #### A LLBG ####[facility] LABCLIA [id number] [address] [address] [place] pH (Bld) 7.42 [pH] Normal 7.35-7.45 [facility] Comment on above: Order Comment: Speci men Type: ARTERIAL BLOOD SPECIMENOrdering Facility: [facility] Address: [address] [place] [address] Performed By: #### A LLBG ####[facility] LABCLIA [id number] [place] [address] [place] Potassium [Moles/Vol] 4.4 mmol/L Normal 3.5-5.0 [facility] Comment on above: Order Comment: Speci men Type: ARTERIAL BLOOD SPECIMENOrdering Facility: [facility] Address: [address] [place] [address] Performed By: #### A LLBG ####[facility] LABCLIA [id number] [place] [address] [place] Sodium [Moles/Vol] 140 mmol/L Normal 136-144 [facility] Comment on above: Order Comment: Speci men Type: ARTERIAL BLOOD SPECIMENOrdering Facility: [facility] Address: [address] [place] [address] Performed By: #### A LLBG ####[facility] LABCLIA [id number] [place] [address] [place] Base excess Calc (Bld) [Moles/Vol] 7 mmol/L High 0-2 [facility] Comment on above: Order Comment: Speci men Type: ARTERIAL BLOOD SPECIMENOrdering Facility: [facility] Address: [address] [place] [address] Performed By: #### A LLBG ####[facility] LABCLIA [id number] [place] [id number] [place] Body temperature 98.6 [degF] Normal [facility] Comment on above: Order Comment: Speci men Type: ARTERIAL BLOOD SPECIMENOrdering Facility: [facility] Address: [address] [place] [address] Performed By: #### A LLBG ####[facility] LABIA [id number] [place] [address] [place] Calcium.ionized (Bld) [Mass/Vol] 1.10 mmol/L Normal 1.08-1.30 [facility] Comment on above: Order Comment: Speci men Type: ARTERIAL BLOOD SPECIMENOrdering Facility: [facility] Address: [address] [place] [address] Performed By: #### A LLBG ####[facility] [id number] [place] [address] [place] Calcium.ionized adjusted to pH 7.4 (BldA) [Moles/Vol] 1.12 mmol/L Normal 1.08-1.30 [facility] Comment on above: Order Comment: Speci men Type: ARTERIAL BLOOD SPECIMENOrdering Facility: [facility] Address: [address] [place] [address] Performed By: #### A LLBG ####[facility] [id number] [place] [address] [place] Carboxyhemoglobin (BldA) [Mass fraction] 2.2 % High 0.0-2.0 [facility] Comment on above: Order Comment: Speci men Type: ARTERIAL BLOOD SPECIMENOrdering Facility: [facility] Address: [address] [place] [address] Result Comment: Carb oxyhemoglobin Reference Range for Smokers: 2.0-8.0% Performed By: #### A LLBG ####[facility] [id number] [place] [address] [place] CO2 (Bld) [Partial pressure] 49 mm Hg High 36-46 [facility] Comment on above: Order Comment: Speci men Type: ARTERIAL BLOOD SPECIMENOrdering Facility: [facility] Address: [address] [place] [address] Performed By: #### A LLBG ####[facility] LABCLIA [id number] [place] [id number] [place] Glucose [Mass/Vol] 151 mg/dL High 60-105 [facility] Comment on above: Order Comment: Speci men Type: ARTERIAL BLOOD SPECIMENOrdering Facility: [facility] Address: [address] [place] [address] Performed By: #### A LLBG ####[facility] LABCLIA [id number] [place] [address] [place] HCO3 (Bld) [Moles/Vol] 32 mmol/L High 22-26 [facility] Comment on above: Order Comment: Speci men Type: ARTERIAL BLOOD SPECIMENOrdering Facility: [facility] Address: [address] [place] [address] Performed By: #### A LLBG ####[facility] LABCLIA [id number] [place] [address] [place] Hematocrit (Bld) [Volume fraction] 27.5 % Low 39.0-51.0 [facility] Comment on above: Order Comment: Speci men Type: ARTERIAL BLOOD SPECIMENOrdering Facility: [facility] Address: [address] [place] [address] Performed By: #### A LLBG ####[facility] LABCLIA [id number] [place] [address] [place] Hemoglobin (Bld) [Mass/Vol] 8.9 g/dL Low 13.0-17.0 [facility] Comment on above: Order Comment: Speci men Type: ARTERIAL BLOOD SPECIMENOrdering Facility: [facility] Address: [address] [place] [address] Performed By: #### A LLBG ####[facility] LABCLIA [id number] [place] [address] [place] Lactate [Moles/Vol] 0.8 mmol/L Normal 0.5-2.[address] [facility] Comment on above: Order Comment: Speci men Type: ARTERIAL BLOOD SPECIMENOrdering Facility: [facility] Address: [address] [place] [address] Performed By: #### A LLBG ####[facility] LABCLIA [id number] [address] [place] [address] [place] Methemoglobin (Bld) [Mass fraction] 0.5 % Normal 0.0-1.5 [facility] Comment on above: Order Comment: Speci men Type: ARTERIAL BLOOD SPECIMENOrdering Facility: [facility] Address: [address] [place] [id number] Performed By: #### A LLBG ####[facility] LABCLIA [id number] [address] [place] [address] [place] O2 THERAPY NC = Nasal Cannula Normal [facility] Comment on above: Order Comment: Speci men Type: ARTERIAL BLOOD SPECIMENOrdering Facility: [facility] Address: [address] [place] [id number] Performed By: #### A LLBG ####[facility] LABCLIA [id number] [address] [place] [address] [place] Oxygen (Bld) [Partial pressure] 85 mm Hg Normal 85-95 [facility] Comment on above: Order Comment: Speci men Type: ARTERIAL BLOOD SPECIMENOrdering Facility: [facility] Address: [address] [place] [id number] Performed By: #### A LLBG ####[facility] LABCLIA [id number] [address] [place] [address] [place] Oxyhemoglobin (BldA) [Mass fraction] 95 % Normal 95-98 [facility] Comment on above: Order Comment: Speci men Type: ARTERIAL BLOOD SPECIMENOrdering Facility: [facility] Address: [address] [place] [id number] Performed By: #### A LLBG ####[facility] LABCLIA [id number] [facility] [place] [address] [place] pH (Bld) 7.42 [pH] Normal 7.35-7.45 [facility] Comment on above: Order Comment: Speci men Type: ARTERIAL BLOOD SPECIMENOrdering Facility: [facility] Address: [address] [place] [address] Performed By: #### A LLBG ####[facility] LABCLIA [id number] [place] [address] [place] Potassium [Moles/Vol] 4.6 mmol/L Normal 3.5-5.0 [facility] Comment on above: Order Comment: Speci men Type: ARTERIAL BLOOD SPECIMENOrdering Facility: [facility] Address: [address] [place] [address] Performed By: #### A LLBG ####[facility] LABCLIA [id number] [place] [address] [place] Sodium [Moles/Vol] 138 mmol/L Normal 136-144 [facility] Comment on above: Order Comment: Speci men Type: ARTERIAL BLOOD SPECIMENOrdering Facility: [facility] Address: [address] [place] [address] Performed By: #### A LLBG ####[facility] LABCLIA [id number] [place] [address] [place] Base excess Calc (Bld) [Moles/Vol] 6 mmol/L High 0-2 [facility] Comment on above: Order Comment: Speci men Type: ARTERIAL BLOOD SPECIMENOrdering Facility: [facility] Address: [address] [place] [address] Performed By: #### A LLBG ####[facility] LABCLIA [id number] [place] [address] [place] Body temperature 98.6 [degF] Normal [facility] Comment on above: Order Comment: Speci men Type: ARTERIAL BLOOD SPECIMENOrdering Facility: [facility] Address: [address] [place] [address] Performed By: #### A LLBG ####[facility] [id number] [place] [address] [place] Calcium.ionized (Bld) [Mass/Vol] 1.10 mmol/L Normal 1.08-1.30 [facility] Comment on above: Order Comment: Speci men Type: ARTERIAL BLOOD SPECIMENOrdering Facility: [facility] Address: [address] [place] [address] Performed By: #### A LLBG ####[facility] [id number] [place] [address] [place] Calcium.ionized adjusted to pH 7.4 (BldA) [Moles/Vol] 1.11 mmol/L Normal 1.08-1.30 [facility] Comment on above: Order Comment: Speci men Type: ARTERIAL BLOOD SPECIMENOrdering Facility: [facility] Address: [address] [place] [address] Performed By: #### A LLBG ####[facility] [id number] [place] [address] [place] Carboxyhemoglobin (BldA) [Mass fraction] 1.6 % Normal 0.0-2.0 [facility] Comment on above: Order Comment: Speci men Type: ARTERIAL BLOOD SPECIMENOrdering Facility: [facility] Address: [address] [place] [address] Result Comment: Carb oxyhemoglobin Reference Range for Smokers: 2.0-8.0% Performed By: #### A LLBG ####[facility] [id number] [place] [address] [place] CO2 (Bld) [Partial pressure] 49 mm Hg High 36-46 [facility] Comment on above: Order Comment: Speci men Type: ARTERIAL BLOOD SPECIMENOrdering Facility: [facility] Address: [address] [place] [address] Performed By: #### A LLBG ####[facility] LABCLIA [id number] [address] [address] [place] Glucose [Mass/Vol] 168 mg/dL High 60-105 [facility] Comment on above: Order Comment: Speci men Type: ARTERIAL BLOOD SPECIMENOrdering Facility: [facility] Address: [address] [place] [address] Performed By: #### A LLBG ####[facility] LABCLIA [id number] [place] [id number] [place] HCO3 (Bld) [Moles/Vol] 31 mmol/L High 22-26 [facility] Comment on above: Order Comment: Speci men Type: ARTERIAL BLOOD SPECIMENOrdering Facility: [facility] Address: [address] [place] [address] Performed By: #### A LLBG ####[facility] LABCLIA [id number] [place] [address] [place] Hematocrit (Bld) [Volume fraction] 27.5 % Low 39.0-51.0 [facility] Comment on above: Order Comment: Speci men Type: ARTERIAL BLOOD SPECIMENOrdering Facility: [facility] Address: [address] [place] [address] Performed By: #### A LLBG ####[facility] LABCLIA [id number] [place] [address] [place] Hemoglobin (Bld) [Mass/Vol] 8.8 g/dL Low 13.0-17.0 [facility] Comment on above: Order Comment: Speci men Type: ARTERIAL BLOOD SPECIMENOrdering Facility: [facility] Address: [address] [place] [address] Performed By: #### A LLBG ####[facility] LABCLIA [id number] [place] [id number] [place] Lactate [Moles/Vol] 0.7 mmol/L Normal 0.5-2.[address] [facility] Comment on above: Order Comment: Speci men Type: ARTERIAL BLOOD SPECIMENOrdering Facility: [facility] Address: [address] [place] [id number] Performed By: #### A LLBG ####[facility] LABCLIA [id number] [address] [address] [place] Methemoglobin (Bld) [Mass fraction] 1.3 % Normal 0.0-1.5 [facility] Comment on above: Order Comment: Speci men Type: ARTERIAL BLOOD SPECIMENOrdering Facility: [facility] Address: [address] [place] [address] Performed By: #### A LLBG ####[facility] LABCLIA [id number] [place] [id number] [place] O2 THERAPY NC = Nasal Cannula Normal [facility] Comment on above: Order Comment: Speci men Type: ARTERIAL BLOOD SPECIMENOrdering Facility: [facility] Address: [address] [place], [place] [address] Performed By: #### A LLBG ####[facility] LABCLIA [id number] [address] [address] [place] Oxygen (Bld) [Partial pressure] 79 mm Hg Low 85-95 [facility] Comment on above: Order Comment: Speci men Type: ARTERIAL BLOOD SPECIMENOrdering Facility: [facility] Address: [address] [place] [id number] Performed By: #### A LLBG ####[facility] LABCLIA [id number] [address] [address] [place] Oxyhemoglobin (BldA) [Mass fraction] 93 % Low 95-98 [facility] Comment on above: Order Comment: Speci men Type: ARTERIAL BLOOD SPECIMENOrdering Facility: [facility] Address: [address] [place] [id number] Performed By: #### A LLBG ####[facility] LABCLIA [id number] [address] [address] [place] pH (Bld) 7.41 [pH] Normal 7.35-7.45 [facility] Comment on above: Order Comment: Speci men Type: ARTERIAL BLOOD SPECIMENOrdering Facility: [facility] Address: [address] [place] [address] Performed By: #### A LLBG ####[facility] LABIA [id number] [place] [address] [place] Potassium [Moles/Vol] 4.8 mmol/L Normal 3.5-5.0 [facility] Comment on above: Order Comment: Speci men Type: ARTERIAL BLOOD SPECIMENOrdering Facility: [facility] Address: [address] [place] [address] Performed By: #### A LLBG ####[facility] LABIA [id number] [place] [address] [place] Sodium [Moles/Vol] 137 mmol/L Normal 136-144 [facility] Comment on above: Order Comment: Speci men Type: ARTERIAL BLOOD SPECIMENOrdering Facility: [facility] Address: [address] [place] [address] Performed By: #### A LLBG ####[facility] LABIA [id number] [place] [id number] [place] CO2 (Bld) [Partial pressure] 52 mm Hg High 36-46 [facility] Comment on above: Order Comment: Speci men Type: ARTERIAL BLOOD SPECIMENOrdering Facility: [facility] Address: [address] [place], [place] [address] Performed By: #### A LLBG ####[facility] LABIA [id number] [place] [id number] [place] Glucose [Mass/Vol] 193 mg/dL High 60-105 [facility] Comment on above: Order Comment: Speci men Type: ARTERIAL BLOOD SPECIMENOrdering Facility: [facility] Address: [address] [place] [address] Performed By: #### A LLBG ####[facility] LABCLIA [id number] [place] [address] [place] HCO3 (Bld) [Moles/Vol] 31 mmol/L High 22-26 [facility] Comment on above: Order Comment: Speci men Type: ARTERIAL BLOOD SPECIMENOrdering Facility: [facility] Address: [address] [place] [address] Performed By: #### A LLBG ####[facility] LABCLIA [id number] [place] [address] [place] Lactate [Moles/Vol] 0.7 mmol/L Normal 0.5-2.[address] [facility] Comment on above: Order Comment: Speci men Type: ARTERIAL BLOOD SPECIMENOrdering Facility: [facility] Address: [address] [place] [address] Performed By: #### A LLBG ####[facility] LABIA [id number] [place] [address] [place] Potassium [Moles/Vol] 4.5 mmol/L Normal 3.5-5.0 [facility] Comment on above: Order Comment: Speci men Type: ARTERIAL BLOOD SPECIMENOrdering Facility: [facility] Address: [address] [place] [address] Performed By: #### A LLBG ####[facility] LABCLIA [id number] [place] [id number] [place] Sodium [Moles/Vol] 136 mmol/L Normal 136-144 [facility] Comment on above: Order Comment: Speci men Type: ARTERIAL BLOOD SPECIMENOrdering Facility: [facility] Address: [address] [place], [place] [address] Performed By: #### A LLBG ####[facility] LABCLIA [id number] [address] [place] CBC panel Auto (Bld)on 01-06 Erythrocyte distribution width (RBC) [Ratio] 15.3 % High 11.5-15.0 [facility] Comment on above: Order Comment: Speci men Type: BLOOD SPECIMENOrdering Facility: [facility] Address: [address] [place] [address] Performed By: #### 5 8410-2 ####[facility] LABIA [id number] [address] [place] Hematocrit (Bld) [Volume fraction] 26.8 % Low 39.0-51.0 [facility] Comment on above: Order Comment: Speci men Type: BLOOD SPECIMENOrdering Facility: [facility] Address: [address] [place] [address] Performed By: #### 5 8410-2 ####[facility] LABIA [id number] [address] Hemoglobin (Bld) [Mass/Vol] 8.8 g/dL Low 13.0-17.0 [facility] Comment on above: Order Comment: Speci men Type: BLOOD SPECIMENOrdering Facility: [facility] Address: [address] [place] [address] Performed By: #### 5 8410-2 ####[facility] LABIA [id number] [place] [address] [place] MCH (RBC) [Entitic mass] 32.1 pg Normal 26.0-34.0 [facility] Comment on above: Order Comment: Speci men Type: BLOOD SPECIMENOrdering Facility: [facility] Address: [address] [place] [address] Performed By: #### 5 8410-2 ####[facility] LABCLIA [id number] [place] [address] [place] MCHC (RBC) [Mass/Vol] 32.8 g/dL Normal 30.5-36.0 [facility] Comment on above: Order Comment: Speci men Type: BLOOD SPECIMENOrdering Facility: [facility] Address: [address] [place] [address] Performed By: #### 5 8410-2 ####[facility] LABIA [id number] [address] [address] [place] MCV (RBC) [Entitic vol] 97.8 fL Normal 80.0-100.0 [facility] Comment on above: Order Comment: Speci men Type: BLOOD SPECIMENOrdering Facility: [facility] Address: [address] [place] [address] Performed By: #### 5 8410-2 ####[facility] LABIA [id number] [place] [address] [place] Nucleated RBC (Bld) [#/Vol] 10*3/uL Normal <0.01 [facility] Comment on above: Order Comment: Speci men Type: BLOOD SPECIMENOrdering Facility: [facility] Address: [address] [place] [address] Performed By: #### 5 8410-2 ####[facility] LAB[facility]FF[facility] [id number] [place] [id number] [place] Platelet mean volume (Bld) [Entitic vol] 11.1 fL Normal 9.0-12.7 [facility] Comment on above: Order Comment: Speci men Type: BLOOD SPECIMENOrdering Facility: [facility] Address: [address] [place] [address] Performed By: #### 5 8410-2 ####[facility] LABIA [id number] [place] [id number] [place] Platelets (Bld) [#/Vol] 160 10*3/uL Normal 150-400 [facility] Comment on above: Order Comment: Speci men Type: BLOOD SPECIMENOrdering Facility: [facility] Address: [address] [place] [address] Performed By: #### 5 8410-2 ####[facility] LABIA [id number] [place] [id number] [place] RBC (Bld) [#/Vol] 2.74 10*6/uL Low 4.20-6.[address] [facility] Comment on above: Order Comment: Speci men Type: BLOOD SPECIMENOrdering Facility: [facility] Address: [address] [place] [address] Performed By: #### 5 8410-2 ####[facility] LABIA [id number] [place] [address] [place] WBC (Bld) [#/Vol] 10.93 10*3/uL Normal 3.70-11.00 [facility] Comment on above: Order Comment: Speci men Type: BLOOD SPECIMENOrdering Facility: [facility] Address: [address] [place] [address] Performed By: #### 5 8410-2 ####[facility] [id number] [place] [id number] [place] CONSULTon 01-06-2025 CONSULT Normal [facility] Fibrinogen PPP-mCncon 2024 Fibrinogen Coag (PPP) [Mass/Vol] 578 mg/dL High 200-400 [facility] Comment on above: Order Comment: Speci men Type: BLOOD SPECIMENOrdering Facility: [facility] Address: [address] [place] [address] Result Comment: Resu lt rechecked.Sample checked for clot. Performed By: #### 1 4979-9, 73530-1, 3255-7 ####[facility] LABIA [id number] [place] [id number] [place] NUTRITIONon 01-06-2025 NUTRITION Normal [facility] PT panel Coag (PPP)on 2024 INR Coag (PPP) [Relative time] 1.0 {INR} Normal 0.9-1.3 [facility] Comment on above: Order Comment: Vandana aguero Type: BLOOD SPECIMENOrdering Facility: [facility] Address: [address] [place] [address] Result Comment: Velvet min K Antagonist (VKA) Therapeutic Range: INR 2 to 3 (Target INR of 2.5)Note: For patients treated with VKA drugs, such as warfarin, the [place] [employer] 2012 Guideline recommends a therapeutic INR range of 2 to 3 (target INR of 2.5). This recommendation includes high-risk patients with antiphospholipid syndrome with previous arterial or venous thromboembolism, current-generation mechanical or bioprosthetic aortic heart valve replacement.Note: Patients with mechanical aortic valve replacement and additional risk factors for thromboembolic events (atrial fibrillation, previous thromboembolism, LV dysfunction, hypercoagulable conditions) or an older generation mechanical AVR (i.e., ball in-Cage) or any mechanical MVR should have a INR therapeutic range of 2.5 to 3.5 (target INR of 3).Debbi GH, et al. Chest 2012, 141:7S-47SNishimura RA, et al. [facility] 2017, 70: 252-289 Performed By: #### 1 4979-9, 42266-9, 325-7 ####[facility] LABCLIA [id number] [place] [address] [place] PT Coag (PPP) [Time] 11.2 s Normal 9.7-13.0 [facility] Comment on above: Order Comment: Vandana aguero Type: BLOOD SPECIMENOrdering Facility: [facility] Address: [address] [place] [address] Result Comment: Samp le checked for clot. Performed By: #### 1 4979-9, 03076-6, 325-7 ####[facility] LABCLIA [id number] [place] [address] [place] THERAPY NTon 01-06-2025 THERAPY NT Normal [facility] THERAPY NT Normal [facility] TYPE + SCREENon 01-06-2025 ABO O Normal [facility] Comment on above: Order Comment: Speci men Type: BLOOD SPECIMENOrdering Facility: [facility] Address: [address] [place] [address] Performed By: #### T SCR ####[facility]ANKCL[facility] [id number] [place] [address] [place] Rh Nom (Bld) Positive Normal [facility] Comment on above: Order Comment: Speci men Type: BLOOD SPECIMENOrdering Facility: [facility] Address: [address] [place] [address] Performed By: #### T SCR ####[facility]ANKCLIA [id number] [place] [address] [place] TYPE AND SCREEN EXPIRATION 01/09/2025 23:59 Normal [facility] Comment on above: Order Comment: Speci men Type: BLOOD SPECIMENOrdering Facility: [facility] Address: [address] [place] [address] Performed By: #### T SCR ####[facility] BLOOD BANKCLIA [id number] [place] [address] [place] XR ABDOMEN 1V SUPINEon 01-06 XR ABDOMEN 1V SUPINE Normal [facility] XR CHEST 1V FRONTALon 2024 XR CHEST 1V FRONTAL Normal [facility] XR CHEST 1V FRONTAL PORTon 0 01-06-2025 XR CHEST 1V FRONTAL PORT Normal [facility] XR CHEST 1V FRONTAL PORT Normal [facility] aPTT PPPon 01-06-2025 aPTT Coag (PPP) [Time] 27.8 s Normal 23.0-32.4 [facility] Comment on above: Order Comment: Speci men Type: BLOOD SPECIMENOrdering Facility: [facility] Address: [address] [place] [address] Result Comment: [facility]. Performed By: #### 1 4979-9, 70647-4, 3255-7 ####[facility] LABCLIA [id number] [address] [address] [place] XR CHEST 2V FRONTAL/LATon XR CHEST 2V FRONTAL/LAT * * *Final Report* * * DATE OF EXAM: Dec 11 2024 1:56PM UDX [id number] - XR CHEST 2V FRONTAL/LAT / PROCEDURE REASON: J44.9/I25.10/I50.9/G47 .33 * * * * Physician Interpretation * * * * EXAMINATION: CHEST RADIOGRAPH (2 VIEW FRONTAL and LATERAL) CLINICAL HISTORY: Shortness of breath MQ: XC2_6 EXAM DATE/TIME: 12/11/2024 1:56 PM COMPARISON: Chest x-ray 03/05/2023 RESULT: Lines, tubes, and devices: None. Lungs and pleura: Bibasilar patchy and hazy opacities are noted. Cardiomediastinal silhouette: Stable size and configuration, persistently englarged. Bones and soft tissues: No acute osseous abnormality is identified. The imaged upper abdomen is within normal limits. IMPRESSION: Bibasilar patchy and hazy opacities which can represent atelectasis or infiltrates. Director Game: RUTHIE Transcribe Date/Time: Dec 11 2024 2:22P Dictated by : BAILEY KAT MD This examination was interpreted and the report reviewed and electronically signed by: BAILEY KAT MD on Dec 11 2024 2:24PM EST [id number] Normal [facility] LVEF TRANSTHORACIC ECHOon Interpretation and review of laboratory results Abnormal [facility] LV Ejection Fraction 24 % Abnormal NINF - 52 % [facility] Comment on above: (2D 4-ch.) EF > 52 An LV Ejection Fraction of > 50% is normal No Panel Informationon 11-25 CONCLUSIONS: - Technically difficult exam due to body habitus. - Exam indication: Evaluation of known cardiomyopathy with a change in clinical status - The left ventricle is mildly dilated. Left ventricular systolic function is severely decreased. EF = 24 5% (2D 4-ch.) Definity contrast used for endocardial border detection. - The right ventricle is dilated. Right ventricular systolic function is mildly decreased. - The left atrial cavity is severely dilated. - There is moderately severe (3+) mitral holosystolic valve regurgitation due to restricted leaflet motion. Regurgitant orifice area (PISA) is 0.32 cm . MR assessment with a SBP of 128 mm Hg. Mechanism suggests ventricular functional mitral regurgitation. - Negative agitated saline study on prior [facility] (10/30/2023). - Exam was compared with the prior CC echocardiographic exam performed on 10/30/2023 ([facility] [place]). Calculated LVEF is lower on today's study, although similar in visual appearance as compared to prior. * * * Final * * * [facility] Ech[facility] Report: Transthoracic Echo [facility] [id number] Date of service: 11/25/2024 11:04:46 AM COMMUNICATIONS Ordering physician: SHUKRI RIGGS Indication: Evaluation of known cardiomyopathy with a change in clinical status Technologist: Anselmo Goodrich Fellow: Jaime Garber MD Interpreting physician: Nahum Hernandez MD PATIENT: Name: PETE CONLEY : 1950 Age: 74 years Gender: M History of hypertension, diabetes mellitus, dyslipidemia, heart failure with hospitalization, coronary artery disease and cardiomyopathy. Primary rhythm: sinus. Height: 177.80 cm BSA: 2.36 m Weight: 112.49 kg BMI: 35.6 kg/m Heart rate 82 bpm Blood pressure 128/70 mmHg Technically difficult exam due to body habitus. IV discontinued (right forearm); site within normal limits. Color Doppler was utilized to interrogate the cardiac valves assessed and spectral Doppler was utilized to determine the flow velocities and pressure gradients reported in this exam. MEASUREMENTS: Value Indexed Normal Max aortic dimension 3.6 cm Ao < 3.8 Left atrial volume 130 ml (biplane A-L) 57 ml/m Karin <= 34 LV stroke volume 46 ml (2D 4-ch.) LV end diastolic volume 193 ml (2D 4-ch.) 82.0 ml/m 34<=EDVi<75 LV end systolic volume 147 ml (2D 4-ch.) 62.6 ml/m Ejection Fraction 24 % (2D 4-ch.) EF > 52 FINDINGS: LEFT VENTRICLE The left ventricle is mildly dilated. Left ventricular systolic function is severely decreased. Left ventricular diastolic function was not evaluated due to inconsistent or technically suboptimal data. Mitral annular lateral E/e': 14.2. Mitral annular septal E/e': 27.8. Definity contrast used for endocardial border detection. Wall Motion: The entire anterior wall and entire lateral wall are akinetic. The entire inferior wall is severely hypokinetic. The entire septum and apex are mildly hypokinetic. RIGHT VENTRICLE The right ventricle is dilated. Right ventricular systolic function is mildly decreased. RV systolic tissue Doppler velocity is 9.4 cm/s. Tricuspid annular displacement is 1.8 cm. Estimated right ventricular systolic pressure is not reported due to an insufficient tricuspid regurgitation signal. Estimated right atrial pressure is 3 mmHg based on IVC assessment. LEFT ATRIUM The left atrial cavity is severely dilated. Pulmonary Veins: The pulmonary venous pattern showed blunted systolic flow. RIGHT ATRIUM The right atrial cavity is normal in size. Inferior Vena Cava: The inferior vena cava appears normal measuring 1.8 cm. The vessel decreases greater than 50 percent with inspiration. MITRAL VALVE There is moderately severe (3+) holosystolic mitral valve regurgitation due to restricted leaflet motion. There is mild thickening. Regurgitant orifice area (PISA) is 0.32 cm . The pressure half time is 50 msec. The peak mitral E/A ratio is 1.52. The average mitral E/e' ratio is 21.0. The mitral flow deceleration time is 172 msec. TRICUSPID VALVE There is mild (1+) tricuspid valve regurgitation. There is no thickening. AORTIC VALVE There is no aortic valve regurgitation. Tricuspid aortic valve. There is mild thickening. There is mild calcification. The peak gradient is 6 mmHg (peak velocity = 118.2 cm/s). PULMONIC VALVE The pulmonic valve was not seen or not interrogated. AORTA The visualized aorta is normal in size. Measurements - Mid ascending aorta 3.6 cm. PULMONARY ARTERIES The pulmonary arteries are unseen or not interrogated. INTERATRIAL SEPTUM There is no evidence of intracardiac shunting as detected by Doppler. [facility] Lois 11-11-2024 HEIDE Telephone (GUILLERMO) PETE CONLEY ([id number]) 1950 M Date Time Provider Department 11/11/24 CHEIKH CONTI During your visit today, we recorded the following information about you: Izzy Gar MA 11/11/2024 3:19 PM Signed Patient was to have surgery on 11/19/[address] Luevano for his back. He was denied by hansa after having his EKG due to it being abnormal and his heart cath being so bad, Dr. Luevano would like him to get his heart taken care of first. He would like a referral to [facility] to have the CABG. Cheikh Conti APRN.CNP 11/11/2024 4:23 PM Signed The referral to [facility] Cardiothoracic Surgery has been ordered at this time. Sukhdeep Lozaad MA 11/11/2024 4:31 PM Signed Patient notified of the message and was agreeable. Referral faxed. Kristie Lees MA 11/13/2024 3:55 PM Signed Patient has been scheduled w/ [facility] Cardiac Intervention- Dr Shukri Riggs on 11/25/24 at 9:30 am. KRISTIE LEES MA Allergies As of Date: 11/11/2024 Noted Allergy Reaction AMLODIPINE 04/29/2021 7 - Swelling ASPIRIN 04/05/2020 14 - Other: See Comments Comments: tacchycardia CLAMS 08/27/2024 16 - Unknown METFORMIN 08/27/2024 5 - Intolerance VICTOZA (LIRAGLUTIDE) 2021 14 - Other: See Comments Date Reviewed: 08/27/2024 Reviewed by: Cheikh Conti APRN.COMPUTER METEOROLOGIST - Fully Assessed Reason for Visit: Patient Question [1472] Primary Visit Diagnosis:Coronary artery disease involving [place] coronary artery of [place] heart without angina pectoris [I25.10] Other Visit Diagnosis:History of cardiac catheterization [Z98.890] Order(s):CONSULT TO CARDIOTHORACIC SURGERY [[id number]] Order #: [id number]: 1 FUTURE Prescriptions as of 11/13/2024 - carvedilol (COREG) 6.25 mg tablet Take 1 tablet by mouth two times a day with meals. - atorvastatin (LIPITOR) 80 mg tablet Take 1 tablet by mouth daily at bedtime. - clopidogrel (PLAVIX) 75 mg tablet Take 1 tablet by mouth every morning. - fluticasone (FLONASE) 50 mcg/actuation nasal spray Use 1-2 Sprays in each nostril once daily. - CPAP 1 Each by Mask route daily at bedtime. [employer] - insulin lispro (HUMALOG KWIKPEN INSULIN SUBCUTANEOUS) Inject 5 Units/day subcutaneously two times a day. Lunch and Dinner - dapagliflozin propanediol (FARXIGA) 10 mg tablet Take 10 mg by mouth daily with breakfast. - cholecalciferol (VITAMIN D) 1,000 unit tab tablet Take 1,000 Units by mouth once daily. - insulin glargine (LANTUS) 100 unit/mL injection Inject 10 Units subcutaneously two times a day. - OXYGEN, HOME THERAPY, Inhale 1.5 L/min as instructed as needed for wheezing/shortness of breath. - allopurinol (ZYLOPRIM) 300 mg tablet Take 300 mg by mouth once daily. - tamsulosin ER (FLOMAX) 0.4 mg Take 0.4 mg by mouth once daily. Problem List As Of Date 11/11/2024 Noted Resolved Bilateral lower extremity edema [R60.0] 2021 Former smoker [Z87.891] 2021 Primary hypertension [I10] 02/16/2021 SOB (shortness of breath) on exertion [R06.02] 04/29/2021 Postinflammatory pulmonary fibrosis (HCC) [J84.*04/29/2021 MACY (obstructive sleep apnea) [G47.33] 04/29/2021 02/14/2024 History of echocardiogram [Z92.89] 03/18/2021 Atelectasis [J98.11] 06/09/2021 Interstitial pulmonary disease (HCC) [J84.9] 06/09/2021 History of echocardiography [Z92.89] 10/22/2021 History of cardiovascular stress test [Z92.89] 10/22/2021 Psoriasis [L40.9] 07/03/2022 MACY on CPAP [G47.33] 07/03/2022 DCM (dilated cardiomyopathy) (HCC) [I42.0] 01/02/2023 Chronic hypoxemic respiratory failure (HCC) [J9*01/02/2023 Chronic obstructive pulmonary disease (HCC) [J4*01/02/2023 Solitary pulmonary nodule [R91.1] 01/02/2023 Pulmonary nodules [R91.8] 04/19/2023 Class 2 severe obesity due to excess calories w*10/02/2023 Type 2 diabetes mellitus with stage 4 chronic k*10/02/2023 Hyperlipidemia LDL goal <55 [E78.5] Chronic HFrEF (heart failure with reduced eject*10/02/2023 Nonrheumatic mitral valve regurgitation [I34.0] 10/02/2023 Pleural effusion [J90] 10/22/2023 Coronary artery disease involving [place] nixon*11/23/2023 Bilateral carotid artery stenosis [I65.23] 10/26/2023 Allergic rhinitis [J30.9] 02/14/2024 End-stage renal disease on peritoneal dialysis * Encounter Status:Closed by SUKHDEEP LOZADA on 11/11/24 [facility] Hemoglobin A1con 11-11-2024 HbA1c (Bld) [Mass fraction] 8.7 % Normal <=5.6 [facility] Comment on above: Performed By: #### L 501.5200, L501.9985 ####[facility] [address] [place], [place], [address] Hepatitis A AB, Totalon 10-19 HEPATITIS A,TOT Negative Normal Negative [facility] Comment on above: Result Comment: Comm ent: The HAV total antibody assay detects both IgG and IgM but does not differentiate between them. A negative result suggests susceptibility to infection. A positive result could be due to vaccination, previously resolved infection or active infection. Testing for HAV IgM should be performed if active HAV infection is suspected. [facility] offers profiles that will automatically reflex positive HAV total antibody results to IgM (e.g., panel #[id number] HAV Antibody w/ Rfx). Performed at: [address] [id number] Tankroom Tender: Dean Reeves PhD, Phone: [phone] Performed By: #### L 6220.9857, M179.651, L100.0100, BTSPAT, L3890.6006, L500.2500, L3890.6202, L3100.0300 ####[facility] [id number] [place], [address] MRSA/SAID NASAL SCREENon MRSA+SAID SCRN Reason for Exam: Surgery MRSA MRSA Positive A S. AUREUS S. aureus Negative Normal [facility] Comment on above: Performed By: #### L 3890.6301, M100.651, L100.0100, BTSPAT, L3890.6006, L500.2500, L3890.6202, L3100.0300 ####[facility] [id number] [place], [place], [id number] 12 Lead EKGon 11-10-2024 12 Lead EKG [facility] Cardiovascular Services [address] [place] [address] 12 Lead EKG 11/10/24 0924 MR#: [id number] Acct: [id number] Name: PETE CONLEY Rep #: [id number] : 1950 74 From: Arvin Lucero MD Attending Dr: Dr. Hank Luevano MD Status: PRE IN Ordering Dr: Hank Luevano MD Date: 11/10/24 Location: [facility] Sex: M C Admitted: Test Reason : PRE OP Blood Pressure : */* mmHG Vent. Rate : 74 BPM Atrial Rate : 74 BPM P-R Int : 200 ms QRS Dur : 180 ms QT Int : 462 ms P-R-T Axes : 82 137 -26 degrees QTcB Int : 512 ms Normal sinus rhythm Right bundle branch block Cannot rule out Inferior infarct , age undetermined T wave abnormality, consider lateral ischemia Abnormal ECG Confirmed by ARVIN LUCERO MD ([id number]), fan mail editor CLAYTON CABRALES ([id number]) on 11/10/2024 10:29:44 AM Referred By: Hank Luevano Confirmed By: ARVIN LUCERO MD 11/10/24 1029 Date Arvin Lucero MD CC: Dr. Hank Luevano MD; Dr. Moises Prater MD Signed Normal [facility] Basic Metabolic Profile (BMP )on 11-10-2024 Chloride [Moles/Vol] 102 mmol/L Normal 98-108 [facility] Comment on above: Performed By: #### L 3890.6301, M100.651, L100.0100, BTSPAT, L3890.6006, L500.2500, L3890.6202, L3100.0300 #### [facility] [address] [place], [address] GAP 14 Normal 5-15 [facility] Comment on above: Performed By: #### L 3890.6301, M100.651, L100.0100, BTSPAT, L3890.6006, L500.2500, L3890.6202, L3100.0300 #### [facility] [address] [place], [address] GFR/1.73 sq M.predicted among non-blacks MDRD (S/P/Bld) [Vol rate/Area] 19 mL/min/{1.73_m2} Low >60 [facility] Comment on above: Result Comment: mL/m in/1.73m2 CKD-EPI Creatinine Equation (2020) Performed By: #### L 3890.6301, M100.651, L100.0100, BTSPAT, L3890.6006, L500.2500, L3890.6202, L3100.0300 #### [facility] [address] [place], [address] Potassium [Moles/Vol] 4.3 mmol/L Normal 3.3-5.1 [facility] Comment on above: Performed By: #### L 3890.6301, M100.651, L100.0100, BTSPAT, L3890.6006, L500.2500, L3890.6202, L3100.0300 #### [facility] [address] [place], [address] Sodium [Moles/Vol] 138 mmol/L Normal 133-145 [facility] Comment on above: Performed By: #### L 3890.6301, M100.651, L100.0100, BTSPAT, L3890.6006, L500.2500, L3890.6202, L3100.0300 #### [facility] [address] [place], [address] CBC W/Diff, Automatedon 10-19 Absolute Lymph 0.87 X10 3/uL Normal 0.83-4.51 [facility] Comment on above: Performed By: #### L 3890.6301, M100.651, L100.0100, BTSPAT, L3890.6006, L500.2500, L3890.6202, L3100.0300 #### [facility] [address] [place], [address] Absolute Neut 6.3 X10 3/uL Normal 2.0-7.7 [facility] Comment on above: Performed By: #### L 3890.6301, M100.651, L100.0100, BTSPAT, L3890.6006, L500.2500, L3890.6202, L3100.0300 #### [facility] [address] [place], [address] Basophils/100 WBC (Bld) 1.0 % Normal 0-1 [facility] Comment on above: Performed By: #### L 3890.6301, M100.651, L100.0100, BTSPAT, L3890.6006, L500.2500, L3890.6202, L3100.0300 #### [facility] [address] [place], [address] Eosinophils/100 WBC (Bld) 5.9 % High 0-5 [facility] Comment on above: Performed By: #### L 3890.6301, M100.651, L100.0100, BTSPAT, L3890.6006, L500.2500, L3890.6202, L3100.0300 #### [facility] [address] [facility] [place], [address] Erythrocyte distribution width (RBC) [Ratio] 14.9 % High 11.6-14.6 [facility] Comment on above: Performed By: #### L 3890.6301, M100.651, L100.0100, BTSPAT, L3890.6006, L500.2500, L3890.6202, L3100.0300 #### [facility] [address] [place], [address] Hematocrit (Bld) [Volume fraction] 48.0 % Normal 40-54 [facility] Comment on above: Performed By: #### L 3890.6301, M100.651, L100.0100, BTSPAT, L3890.6006, L500.2500, L3890.6202, L3100.0300 #### [facility] [address] [facility] [place], [address] Hemoglobin (Bld) [Mass/Vol] 15.6 g/dL Normal 13.0-16.5 [facility] Comment on above: Performed By: #### L 3890.6301, M100.651, L100.0100, BTSPAT, L3890.6006, L500.2500, L3890.6202, L3100.0300 #### [facility] [address] [place], [address] IG% 0.300 Normal 0.0-0.9 [facility] Comment on above: Result Comment: IG% - Immature Granulocytes (promyelocytes, myelocytes and metamyelocytes) > 1% indicates that a LEFT SHIFT is Present. Performed By: #### L 3890.6301, M100.651, L100.0100, BTSPAT, L3890.6006, L500.2500, L3890.6202, L3100.0300 #### [facility] [address] [place], [address] Lymphocytes/100 WBC (Bld) 10.0 % Low 19-41 [facility] Comment on above: Performed By: #### L 3890.6301, M100.651, L100.0100, BTSPAT, L3890.6006, L500.2500, L3890.6202, L3100.0300 #### [facility] [address] [place], [address] MCH (RBC) [Entitic mass] 31.8 pg Normal 27.0-32.0 [facility] Comment on above: Performed By: #### L 3890.6301, M100.651, L100.0100, BTSPAT, L3890.6006, L500.2500, L3890.6202, L3100.0300 #### [facility] [address] [place], [address] MCHC (RBC) [Mass/Vol] 32.5 g/dL Normal 32-36 [facility] Comment on above: Performed By: #### L 3890.6301, M100.651, L100.0100, BTSPAT, L3890.6006, L500.2500, L3890.6202, L3100.0300 #### [facility] [address] [place], [address] MCV (RBC) [Entitic vol] 97.8 fL High 80-94 [facility] Comment on above: Performed By: #### L 3890.6301, M100.651, L100.0100, BTSPAT, L3890.6006, L500.2500, L3890.6202, L3100.0300 #### [facility] [address] [place], [address] Monocytes/100 WBC (Bld) 10.3 % High 0-10 [facility] Comment on above: Performed By: #### L 3890.6301, M100.651, L100.0100, BTSPAT, L3890.6006, L500.2500, L3890.6202, L3100.0300 #### [facility] [address] [place], [address] Neutrophils/100 WBC (Bld) 72.5 % High 47-70 [facility] Comment on above: Performed By: #### L 3890.6301, M100.651, L100.0100, BTSPAT, L3890.6006, L500.2500, L3890.6202, L3100.0300 #### [facility] [address] [place], [address] Nucleated RBC (Bld) [#/Vol] 0 10*3/uL Normal 0-5 [facility] Comment on above: Performed By: #### L 3890.6301, M100.651, L100.0100, BTSPAT, L3890.6006, L500.2500, L3890.6202, L3100.0300 #### [facility] [address] [place], [address] Platelet mean volume (Bld) [Entitic vol] 10.3 fL Normal 6.2-12.0 [facility] Comment on above: Performed By: #### L 3890.6301, M100.651, L100.0100, BTSPAT, L3890.6006, L500.2500, L3890.6202, L3100.0300 #### [facility] [address] [place], [address] Platelets (Bld) [#/Vol] 129 10*3/uL Low 150-450 [facility] Comment on above: Performed By: #### L 3890.6301, M100.651, L100.0100, BTSPAT, L3890.6006, L500.2500, L3890.6202, L3100.0300 #### [facility] [address] [place], [address] RBC (Bld) [#/Vol] 4.91 10*6/uL Normal 4.6-6.2 [facility] Comment on above: Performed By: #### L 3890.6301, M100.651, L100.0100, BTSPAT, L3890.6006, L500.2500, L3890.6202, L3100.0300 #### [facility] [address] [place], [address] RDW SD 53.6 fl High 35.1-43.9 [facility] Comment on above: Performed By: #### L 3890.6301, M100.651, L100.0100, BTSPAT, L3890.6006, L500.2500, L3890.6202, L3100.0300 #### [facility] [address] [place], [address] WBC (Bld) [#/Vol] 8.7 10*3/uL Normal 4.4-11.0 [facility] Comment on above: Performed By: #### L 3890.6301, M100.651, L100.0100, BTSPAT, L3890.6006, L500.2500, L3890.6202, L3100.0300 #### [facility] [address] [place], [address] L3890.6006on 11-10-2024 HIV Non-Reactive Normal Nonreactive [facility] Comment on above: Result Comment: Non- Reactive Reactive Repeatedly reactive samples must be confirmed according to CDC recommended confirmatory algorithms. The subresults for either HIVAG or AHIV can be used as an aid in the selection of the confirmation algorithm for reactive samples. Send out specimens with Reactive results to [facility] for confirmation. Order the HIV antibody detection and differentiation: lc#[id number] Performed By: #### L 3890.6301, M100.651, L100.0100, BTSPAT, L3890.6006, L500.2500, L3890.6202, L3100.0300 #### [facility] [address] [place], [place], [address] L3890.6202on 11-10-2024 HEP B Surf Ab Non-Reactive Normal [facility] Comment on above: Result Comment: <8.5 mIU/mL: Non-Reactive 8.5<= x <11.5 mIU/mL: Indeterminate >=11.5 mIU/mL: Reactive Non Reactive: Inconsistent with immunity less than <10 mIU/mL Reactive: Consistent with immunity greater than or equal to 10 mIU/mL Performed By: #### L 3890.6301, M100.651, L100.0100, BTSPAT, L3890.6006, L500.2500, L3890.6202, L3100.0300 ####[facility] [address] [facility] [place], [place], [address] L3890.6301on 11-10-2024 Hepatitis C Ab Non-Reactive Normal Nonreactive [facility] Comment on above: Result Comment: Reac tive: Presumptive evidence of antibodies to HCV. Follow CDC recommendations for supplemental testing. Non-Reactive: Antibodies to HCV were not detected; does not exclude the possibility of exposure to HCV Reactive Results are presumptive evidence of antibodies to HCV. Follow CDC recommendations for supplemental testing. Order confirmation testing: HCV Quant by PCR testing - HCVPCR #[id number] Non Reactive: < 0.8 Equivocal: >/= 0.8 to < 1.0 Reactive: >/= 1.0 The CDC requires that a reactive/equivocal HCV antibody result be sent out for confirmation. HCV Quant by PCR testing. Performed By: #### L 3890.6301, M100.651, L100.0100, BTSPAT, L3890.6006, L500.2500, L3890.6202, L3100.0300 #### [facility] [address] [place], [address] MR/PATAMEEnava 11-10-2024 MR/PAT.MAYRA [facility] Medical Records Department [address] [place] [address] PAT - Anesthesia 11/10/242017 MR#: [id number] Acct: [id number] Name: PETE CONLEY Rep #: [id number] : 1950 74 From: Ceferino Ramos MD PCP: Dr. Moises Prater MD Status:PRE IN Y Race: C Location: [facility] Pre-Assessment Diagnosis/Proposed Procedure Planned Operative Procedure(s): 360 Lumbar Fusion L3-4 and L4-5, possible cement augmentation Anesthesia History Anesthesia History - cornetist: Anesthesia History - cornetist Hx Hospitalization Yes 11/05/24 15:36 Any Problems With Anesthesia No 11/05/24 15:36 Cholinesterase deficiency No 11/05/24 15:36 You/Your Family Experience No 11/05/24 15:36 fever (hyperthermia) with Relationship Recent Exposure to Contagious Disease Does patient have nerve No 11/05/24 15:36 stimulator Patient instructed to have device shut off --Does patient have Pacemaker or ICD? When Was Last Pacemaker Check QUESTION #4 FULL TEXT: You/Your Family Experience fever (hyperthermia) with Anesthesia Last Oral Intake Last Oral intake: Last Oral Intake NPO since Meds taken in AM with sips of water? Meds patient instructed to take am of surgery PONV PONV - cornetist: PONV - cornetist Female No 11/05/24 15:36 HX of Motion Sickness No 11/05/24 15:36 HX of N/V After Surgery No 11/05/24 15:36 Non-Smoker Yes 11/05/24 15:36 Duration of Surgery greater Yes 11/05/24 15:36 than 60 minutes Number of Risk Factors 2 11/05/24 15:36 PONV Score Moderate Risk 11/05/24 15:36 Height Weight Height Weight: Anesthesia: Height Weight Height 5 ft 11 in 09/15/24 15:03 Respiratory Assessment Respiratory Assessment - cornetist: Respiratory Tract Infection Hx - cornetist Hx Respiratory Tract Infection No 11/05/24 15:36 STOP Sleep Apnea STOP Sleep Apnea - cornetist: STOP Sleep Apnea - cornetist Hx Hypertension Yes: NO MED SINCE DIALYSIS 11/05/24 15:36 Hx Sleep Apnea Yes 11/05/24 15:36 CPAP Yes 11/05/24 15:36 BIPAP No 11/05/24 15:36 Do you snore loudly (louder than talking or can be heard Do you often feel tired/ fatigued/ sleepy during daytime? Has anyone observed you stop breathing during sleep? STOP Results Positive 11/05/24 15:36 QUESTION #5 FULL TEXT : Do you snore loudly (louder than talking or can be heard through closed doors)? Tobacco Use History Tobacco Use History - cornetist: Tobacco Use History - cornetist Tobacco Use Smoking Status Former smoker 11/05/24 15:36 Hx Tobacco Use No 11/05/24 15:36 Years Smoking Packs Smoked per Day Smoking Cessation Date was No - quit smoking greater 11/05/24 15:36 within the last 15 years than 15 years ago Hx Smoking Cessation Date 08/20/79 11/05/24 15:36 Hx Smoking Cessation Counseling Hematologic Medial History Hematologic Hx - cornetist: Hematologic Medical Hx - esthetician and manager medical spa Hx of Blood Transfusion No 11/05/24 15:36 Hx of Transfusion in last 3 No 11/05/24 15:36 Months Date of Last Transfusion (if within last 3 months) Ever experience any problems No 11/05/24 15:36 with transfusion(s)? Specify any problems Hx of Preganancy in last 3 N/A 11/05/24 15:36 Months Nurse Filling Out Transfusion NBUCHER 11/05/24 15:36 Questions: Date: 11/05/24 11/05/24 15:36 Time: 15:39 11/05/24 15:36 Patient unable to answer at this time (ie. confused, unrespo /Reproduction History /Reproductive History - cornetist: /Reproductive Hx- cornetist Hx Now No 11/05/24 15:36 Gestational Age (in weeks): EDC: Hx Hx Para Hx Section SAB No 11/05/24 15:36 PFSH Medical History (Updated 11/05/24 @ 15:48 by Marcela Negrete) Wears hearing aid Loss of hearing Wears glasses Walker as ambulation aid End stage chronic kidney disease History of renal dialysis History of renal disease High cholesterol Back pain Syncope Former smoker CPAP (continuous positive airway pressure) dependence Sleep apnea Leg cramps History of echocardiogram History of stress test Cardiology follow-up encounter Hypertension Kidney failure Dialysis patient Congestive heart failure Amputation of right foot Diabetes Home Medications ???Medication ???Instructions ???Recorded ???Last Taken ???Type allopurinol 300 mg tablet 300 mg PO DAILY gout 09/15/24 Unkn own History atorvastatin 80 mg tablet 80 mg PO QHS HLD 09/15/24 Unknown History carvedilol 6.25 mg tablet 6.25 mg PO BID HEART 09/15/24 U (more content not included)... Normal [facility] Magnesiumon 11-10-2024 Magnesium [Mass/Vol] 2.0 mg/dL Normal 1.5-2.2 [facility] Comment on above: Performed By: #### L 501.5200, L501.9985 ####[facility] [address] [place], [place], [id number] Type AND Screen - PAT ONLYon 11-10-2024 Ab SCREEN GEL Negative Normal [facility] Comment on above: Order Comment: Reaso n for Laboratory Test PREOP [id number] N/A N N S 360 LUMABR Performed By: #### L 3890.6301, M100.651, L100.0100, BTSPAT, L3890.6006, L500.2500, L3890.6202, L3100.0300 #### [facility] [address] [place], [place], [address] US CAROTID ARTERIES JOSE A VAS LABon 10-27-2024 US CAROTID ARTERIES JOSE A [facility]AS LAB Non-Invasive Vascular Laboratory [facility] Carotid Duplex Bilateral/Complete Date of service/time: 10/27/2024 3:34:28 PM Name: PETE CONLEY Date of : 1950 Age: 74 years Gender: M Clinical Indication Follow-up study on a patient with known carotid disease. TECHNIQUE -------- A carotid duplex ultrasound examination was performed, including grayscale imaging and color Doppler and spectral Doppler examination of the below mentioned arteries. FINDINGS -------- RIGHT SIDE Common carotid artery: Proximal: PSV: 84 cm/s. EDV: 11 cm/s. Distal: PSV: 67 cm/s. EDV: 9 cm/s. Internal carotid artery: Proximal: PSV: 210 cm/s. EDV: 45 cm/s. Distal: PSV: 176 cm/s. EDV: 21 cm/s. ICA/CCA Ratio: 3.1 External carotid artery: Proximal: PSV: 124 cm/s. EDV: 12 cm/s. Subclavian artery: Proximal: PSV: 108 cm/s. Vertebral artery: PSV: 23 cm/s. EDV: 8 cm/s. LEFT SIDE Common carotid artery: Proximal: PSV: 87 cm/s. EDV: 15 cm/s. Distal: PSV: 56 cm/s. EDV: 12 cm/s. Internal carotid artery: Proximal: PSV: 44 cm/s. EDV: 8 cm/s. Distal: PSV: 67 cm/s. EDV: 16 cm/s. ICA/CCA Ratio: 0.8 External carotid artery: Proximal: PSV: 106 cm/s. EDV: 13 cm/s. Subclavian artery: Proximal: PSV: 109 cm/s. Vertebral artery: PSV: 44 cm/s. EDV: 11 cm/s. IMPRESSION Please note: the new carotid interpretation criteria are used as recommended by [employer]. Technically difficult exam due to shadowing. RIGHT SIDE Common carotid artery: Patent. Internal carotid artery: 50-69% stenosis consistent with moderate carotid artery disease. Shadowing noted in the bulb and proximal internal carotid artery. Vertebral artery: Patent and antegrade flow noted. LEFT SIDE Common carotid artery: Patent. Internal carotid artery: <50% stenosis consistent with mild carotid artery disease. Vertebral artery: Patent and antegrade flow noted. Technologist: Valeria Stuart BS, MPH, RVT Ordering physician: DOMINGO MONSALVE Interpreting physician: Jacek Monsalve MD Final CC [employer] [facility] Image : [id number] csSISUID See Link below for Image Normal [facility] US Carotid arteries - yazan pena 10-27-2024 Non-Invasive Vascular Laboratory [facility] Carotid Duplex Bilateral/Complete Date of service/time: 10/27/2024 3:34:28 PM Name: PETE CONLEY Date of : 1950 Age: 74 years Gender: M Clinical Indication Follow-up study on a patient with known carotid disease. TECHNIQUE -------- A carotid duplex ultrasound examination was performed, including grayscale imaging and color Doppler and spectral Doppler examination of the below mentioned arteries. FINDINGS -------- RIGHT SIDE Common carotid artery: Proximal: PSV: 84 cm/s. EDV: 11 cm/s. Distal: PSV: 67 cm/s. EDV: 9 cm/s. Internal carotid artery: Proximal: PSV: 210 cm/s. EDV: 45 cm/s. Distal: PSV: 176 cm/s. EDV: 21 cm/s. ICA/CCA Ratio: 3.1 External carotid artery: Proximal: PSV: 124 cm/s. EDV: 12 cm/s. Subclavian artery: Proximal: PSV: 108 cm/s. Vertebral artery: PSV: 23 cm/s. EDV: 8 cm/s. LEFT SIDE Common carotid artery: Proximal: PSV: 87 cm/s. EDV: 15 cm/s. Distal: PSV: 56 cm/s. EDV: 12 cm/s. Internal carotid artery: Proximal: PSV: 44 cm/s. EDV: 8 cm/s. Distal: PSV: 67 cm/s. EDV: 16 cm/s. ICA/CCA Ratio: 0.8 External carotid artery: Proximal: PSV: 106 cm/s. EDV: 13 cm/s. Subclavian artery: Proximal: PSV: 109 cm/s. Vertebral artery: PSV: 44 cm/s. EDV: 11 cm/s. IMPRESSION Please note: the new carotid interpretation criteria are used as recommended by [employer] Commission. Technically difficult exam due to shadowing. RIGHT SIDE Common carotid artery: Patent. Internal carotid artery: 50-69% stenosis consistent with moderate carotid artery disease. Shadowing noted in the bulb and proximal internal carotid artery. Vertebral artery: Patent and antegrade flow noted. LEFT SIDE Common carotid artery: Patent. Internal carotid artery: <50% stenosis consistent with mild carotid artery disease. Vertebral artery: Patent and antegrade flow noted. Technologist: Valeria Stuart BS, MPH, RVT Ordering physician: DOMINGO MONSALVE Interpreting physician: Jacek Monsalve MD Final See Link below for Image [facility] Lumbar Spine 2 or 3 Viewson 09-15-2024 Lumbar Spine 2 or 3 Views [facility] [address] [place] [address] Lumbar Spine 2 or 3 Views MR#: [id number] Acct: [id number] Name: PETE CONLEY Rep #: [id number] : 1950 M 74 From: Madhu Duarte MD PCP: Dr. Moises Prater MD Status: DEP [facility] Study: Lumbar Spine 2 or 3 Views Date of Exam: Exam# [id number] Ordering Dr: Cassandra Hopkins [id number] STUDY: X-RAY - LUMBAR SPINE REASON FOR EXAM: Male, 74 years old. Pain. TECHNIQUE: 2 upright view(s) of the lumbar spine were obtained. COMPARISON: None FINDINGS: Osteopenia. Normal lumbar lordosis. There is no substantial scoliosis. 3 mm of anterolisthesis of L4 on L5. Loss of height of the L5 vertebral body, age indeterminant. Diffuse moderate lower thoracic and lumbosacral facet sclerosis. Diffuse [id number] intervertebral disc space narrowing with osteophytes most marked at T11-T12 and T12-L1. Marked vascular calcification. RAD/Lumbar Spine 2 or 3 Views IMPRESSION: Osteopenia with diffuse thoracolumbar spondylosis most marked in the lower thoracic spine. Electronically Signed: Madhu Duarte MD at 9:58 EST Reading Location ID and State: [address] [place] [address] , Service support , CC: JADE Prado; Dr. Moises Prater MD Director Game: Signed Normal [facility] Orthopedic Visit Reporton Orthopedic Visit Report [facility] [address] [place] [address] OFFICE VISIT Date of Service: 09/15/24 MR#: [id number] Acct: [id number] Name: PETE CONLEY Rep #: [id number] : 1950 Provider: Dr. Hank Luevano MD Age/Sex: 74/M Location: [facility] Status: Signed Intake Vital Signs 09/15/24 15:03 Height 5 ft 11 in Weight: 260 lb 2 oz BMI 36.3 Intake Visit Reasons: LUMBAR SPINE Accompanied by: Self Is patient in pain?: Yes Pain scale (1-10): 5 Allergies aspirin Allergy (Verified 09/15/24 15:06) Flares up heart Medications ???Medication ???Instructions ???Recorded ???Confirmed ???Type allopurinol 300 mg tablet mg PO DAILY 09/15/24 09/15/24 History atorvastatin 80 mg tablet mg PO DAILY 09/15/24 09/15/24 History carvedilol 6.25 mg tablet mg PO 09/15/24 09/15/24 History cholecalciferol (vitamin D3) 25 25 mcg PO QDAY 09/15/24 09/15/24 History mcg (1,000 unit) tablet clindamycin HCl 300 mg capsule mg PO 3XD 09/15/24 09/15/24 History clopidogrel 75 mg tablet mg PO DAILY 09/15/24 09/15/24 History dapagliflozin propanediol 10 mg mg PO DAILY 09/15/24 09/15/24 History tablet (Farxiga) insulin glargine 100 unit/mL unit subcut 09/15/24 09/15/24 History subcutaneous solution (Lantus U-100 Insulin) insulin lispro 100 unit/mL subcut 09/15/24 09/15/24 History subcutaneous solution (Humalog U-100 Insulin) tamsulosin 0.4 mg capsule mg PO 09/15/24 09/15/24 History tramadol 50 mg tablet mg PO 09/15/24 09/15/24 History Have you fallen in the past year?: No [facility] Medical History Kidney failure Dialysis patient Congestive heart failure Amputation of right foot Diabetes Family History Other Diabetes HPI LUMBAR SPINE Details: This documentation accurately reflects the service provided and the decisions made by me, Dr. Hank Luevano MD 09/15/24 [id number]. Part of today???s visit was documented by Kaycee OLVERA, acting as scribe. PETE CONLEY is a 74 year old M here today NEW patient for low back pain that he has been having for a couple of months. 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 He does have pain that radiates down his left leg. The pain is down his left lateral leg. Says he also gets right sided lateral calf pain. Says that is pain worsens with walking. He can only walk about 50 feet before he needs to sit down due to the pain. Says that this distance has worsened over the last year. He relies on a shopping cart when at a grocery store. Denies numbness, tingling or other associated symptoms. He denies any injury or previous surgery. He states that any amount of walking increases his pain. He denies PT for his back but he does see a chiropractor that has been doing laser therapy that does help with his pain. He does see Dr. Hassan for pain management and his last injection was about 2 months ago which did give him some mild relief. He continues to take Tylenol for pain. He did have a recent MRI of his lumbar spine that was done on 08/21/24 at [facility]. History of diabetes, last a1c was about 7.5 patient reports. He has had a portion of his left foot amputated due to delayed healing related to the diabetes. Takes Plavix for a clogged artery. Ortho Exam General General: Yes no acute distress Neurologic: Yes alert and Yes oriented x3 Spine SPINE TESTING CERVICAL THORACIC LUMBAR Musculoskeletal Strength 0=absent - 5=normal Details: Neurological exam of the lower extremities shows 5x5 power. Pain with right knee extension. Normal sensations across all dermatomes. No hyperreflexia. Focal midline tenderness, no paraspinal tend erness. Antalgic when going from sitting to standing. Coding Level of Care Code Off vis,new,level 5 Diagnoses Compression fracture of L5 vertebra, initial encounter S32.050A Encounter type: initial encounter Spondylolisthesis, lumbar region M43.16 Spinal stenosis of lumbar region with neurogenic claudication M48.062 Time Spent (min) 55 Assessment and Plan Assessment and Plan (1) Compression fracture of L5 vertebra: Status: Acute Qualifiers: Encounter type: initial encounter Qualified Code(s): S32.050A - Wedge compression fracture of fifth lumbar vertebra, initial encounter for closed fracture (2) Spondylolisthesis, lumbar region: Status: Acute (3) Spinal stenosis of lumbar region with neurogenic claudication: Status: Acute Orders: Orders Lumbar Spine 2 or 3 Views 09/15/24 M54.50 - Low back pain, unspecified Plan Obtained and reviewed xrays today with the patient. Xrays show L5 compression fracture and a L4 on L5 spondyl (more content not included)... Normal [facility] CNOVon 08-27-2024 CNOV Office Visit (CAUNDO ) PETE CONLEY ([id number]) 1950 M Date Time Provider Department 08/27/24 1:40 PM CHEIKH CONTI During your visit today, we recorded the following information about you: Pulse Respiration Blood pressure Weight 86/minute 16/minute 138/80 116.1 kg Height 1.803 m Cheikh Conti APRN.COMPUTER METEOROLOGIST 08/27/2024 9:05 PM Signed Date: August 27, 2024 Chief Complaint: CARD F/U HISTORY OF PRESENT ILLNESS: Pete Conley is a 74 year old male who presents for follow up for chronic cardiac conditions. In October 2023, patient discussed potential CABG with cardiothoracic surgeon due to triple-vessel CAD, but declined due to poor surgical candidacy related to many comorbidities. Patient states that he has chosen to pursue medical therapy for management of CAD. Patient states that he has chronic kidneys disease and undergoes peritoneal dialysis. Patient states that he has been taking his medications as prescribed. Patient denies chest pain, palpitations, dyspnea, lightheadedness, or edema. ALLERGIES Allergen Reactions Amlodipine Swelling Aspirin Other: See Comments tacchycardia Clams Unknown Metformin Intolerance Victoza [Liraglutid* Other: See Comments PAST MEDICAL HISTORY: PAST MEDICAL HISTORY Diagnosis Date Acute and chronic respiratory failure with hypoxia ([facility]) Bilateral carotid artery stenosis 10/26/2023 Right internal carotid artery: 60-79% stenosis. Left: 20-39% stenosis. Monitored by Vascular Surgeon Dr. Domingo Monsalve. 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 Dolores Welsh COPD (chronic obstructive pulmonary disease) ([facility]) Lead Portfolio Manager Dr. Crystal Bauer Diabetes mellitus type 2 ([facility]) History of 2019 novel coronavirus disease (COVID-19) 09/08/2021 History of cardiac cath 10/30/2023 LAD: Mid LAD is narrowed 60% (DFR 0.79% - hemodynamically significant stenosis). Mid LCx is narrowed 80%. Mid RCA is narrowed 80%. Stent was not placed. CABG indicated. Pt declined CABG due to poor surgical candidate related to many comobidities. Patient elects medical therapy. History of cardiac monitoring 10/02/2023 Patient wore event monitor secondary to palpitations and syncope and collapse. Underlying sinus rhythm was appreciated with excellent heart rate variability. Heart rate ranging 50-120, average heart rate 70. Very rare PVC's are isolated no sustained evidence of atrial fibrillation or ventricular tachycardia. Patient is on Coreg 6.25 mg BID. Symptoms have no relationship to any arrhythmias. History of cardiovascular stress test 10/10/2021 -Impression: Enlarging dilated LV and the setting of global hypokinesis. Calculated EF 39%. This may represent the sequela of chronic hypertension or other cardiomyopathy. No images evidence of stress-induced myocardial ischemia. History of echocardiogram 03/18/2021 Echocardiogram demonstrates a suboptimal study. EF 50 to 55%. Moderate concentric LVH. Class I diastolic dysfunction. Left atrium is mildly dilated. Mild a S. Mild to moderate MR. Mild TR. Borderline to mild PHT. History of echocardiogram 10/04/2022 EF 45-50%. Left ventricle cavity size is normal. Wall thickness is normal. Systolic funciton is mildly reduced. Hypokinesis of the anterolateral myocardium. Hypokinesis of the inferioir myocardium Grade 2 diastolic dysfunction. Mitral valve the annulus is mildly calcified. The leaflets are moderately thickened. Thickening. Severe regurgitation. Left atrium is mildly dilated. History of echocardiogram 12/22/2022 EF 50% demonstrates concentric left ventricular hypertrophy. Slight hypokinesis of distal septal wall. Mild to moderate MR. Mild TR. Aortic valve is sclerotic, thickened, but the valve area is noted to be normal. History of echocardiogram w/ Bubble Study 09/24/2023 EF 30-35%, LV- moderately enlarged. LA-moderately enlarged. RA-moderately enlarged. Moderate to severe MV regurgitation. Moderate TV regurgitation. Moderate pulmonary hypertension. History of echocardiography 10/07/2021 -Echocardiogram demonstrates of the difficult study with minimal information obtainable. LV is dilated with an EF at 45 to 50%. Diastolic function is indeterminate. Aortic valve is poorly visualized but no evidence for aortic stenosis by Doppler analysis. Moderate mitral annular calcification without hemodynamically significant MS. Mild MR. History of smoking History of transesophageal echocardiography (MILA) 10/30/2023 EF 30-35%. Moderately severe MR with PISA of 0.29 cm?. Mild TR. HTN (hypertension) Obstructive sleep apnea on CPAP Peritoneal dialysis status (HCC) 6-days per week, does not do on Sunday. PAST SURGICAL HISTORY Procedure Laterality Date PAST SURGICAL HISTORY OF Right TMA TONSILLECTOMY HX FAMILY HISTORY Problem Relation A (more content not included)... Normal [facility] ECG COMPLETEon 08-27-2024 ECG COMPLETE Ventricular Rate : 8 5 BPM Atrial Rate : 85 BPM P-R Interval : 194 ms QRS Duration : 168 ms Q-T Interval : 442 ms QTC Calculation(Bazett) : 525 ms Calculated P Dutton : 56 degrees Calculated R Dutton : 127 degrees Calculated T Dutton : -14 degrees Normal sinus rhythm Right bundle branch block Possible Inferior infarct , age undetermined Abnormal ECG When compared with ECG of 02-Oct-2023 15:15, T wave inversion now evident in Inferior leads Confirmed by TRISTAN ALEXANDER DO ([id number]) on 08/31/2024 5:11:22 PM NAME : PETE CONLEY PID : [id number] : 1950 Gender : Male Race : ORD : [id number] Procedure Date : Aug 27 2024 14:49:41 Edit Date : Aug 31 2024 17:11:23 Diagnosis: Normal sinus rhythm Right bundle branch block Possible Inferior infarct , age undetermined Abnormal ECG When compared with ECG of 02-Oct-2023 15:15, T wave inversion now evident in Inferior leads Confirmed by TRISTAN ALEXANDER DO ([id number]) on 08/31/2024 5:11:22 PM Test Reason : HCS Location : 2 : [place] Overread By : TRISTAN ALEXANDER DO Edited By : TRISTAN ALEXANDER DO Referred By : , Acquired by : , Normal [facility] Spine Lumbar (Routine)on Spine Lumbar (Routine) [facility] Imaging Services [address] [place] [id number] Spine Lumbar (Routine) MR#: [id number] Acct: [id number] Name: NATY CONLEYMAKAYLA E Rep #: [id number] : 1950 M 74 From: Vick Hutchins PCP: Dr. Moises Prater MD Status: REG CLI Study: Spine Lumbar (Routine) Date of Exam: 08/21/24 Exam# [id number] Ordering Dr: Myron Hassan MD [id number] STUDY: MRI LUMBAR SPINE WITHOUT CONTRAST REASON FOR EXAM: Male, 74 years old. RADICULOPATHY TECHNIQUE: Standardized fat and water weighted pulse sequences were obtained in the sagittal and axial planes. COMPARISON: None FINDINGS: T12-L1: Normal endplates. Normal disc height, hydration and morphology. Normal bilateral facet joints. Normal central canal and bilateral lateral recesses. Normal bilateral intervertebral neural foramina. Normal lumbar lordosis. There is no substantial scoliosis. Normal conus medullaris that terminates at the L1-2 level. L1-2: Mild annular bulge.. Normal disc height, hydration and morphology. Normal bilateral facet joints. Normal central canal and bilateral lateral recesses. Normal bilateral intervertebral neural foramina. L2-3: Mild annular bulge causing mild trefoil type narrowing the thecal sac and neural foramina bilaterally. L3-4: Moderate annular bulge and hypertrophic facet disease causing moderate trefoil type narrowing of the thecal sac and neural foramina bilaterally. L4-5: Slight anterior subluxation L4-5 with unroofing of the posterior disc. Fluid-filled hypertrophic facets. Severe trefoil type narrowing of the thecal sac and neural foramina bilaterally. L5-S1: Mild compression fracture and bone marrow edema L5 vertebral body. Moderate narrowing of the neural foramina, right greater than left. Central canal patent. Normal visualized sacral ala. Normal visualized paraspinous soft tissue structures. MRI/Spine Lumbar (Routine) IMPRESSION: Acute or subacute compression fracture L5. Grade 1 spondylolisthesis L4-5 and severe spinal stenosis and neural foraminal narrowing at this level. Moderate spinal stenosis also noted at L3-4. Electronically Signed: Vick Hoyt MD at 0:12 EST , CC: Dr. Myron Hassan MD; Dr. Moises Prater MD Director Game: Signed Normal [facility] US Lower extremity artery - bilateralon 03-24-2024 Non-Invasive Vascular Laboratory [facility] Lower Extremity Arterial Physiology Study Bilateral/Complete Date of service/time: 03/24/2024 12:35:00 PM Name: PETE CONLEY Date of : 1950 Age: 74 years Gender: M Clinical Indication Ulceration. TECHNIQUE -------- An arterial physiological examination was performed, including measurement of blood pressures using continuous wave Doppler and recording of plethysmographic with or without Doppler waveforms at the below-mentioned limb segments. FINDINGS -------- RIGHT SIDE AT REST Right Pressures Brachial: 140 mmHg High thigh: 155 mmHg Calf: 147 mmHg Ankle dorsalis pedis: 145 mmHg ASHWIN: 1.04 Digit: Transmetatarsal amputation. LEFT SIDE AT REST Left Pressures Brachial: 137 mmHg High thigh: Non-compressible arteries. Calf: Unable to do, see tracings. Ankle dorsalis pedis: Non-compressible arteries. Ankle posterior tibial: Non-compressible arteries. Digit: 20 mmHg IMPRESSION RIGHT SIDE Resting right ankle brachial index: 1.04 Normal ankle brachial index at rest in the right leg. Normal PVR study with an ankle brachial index of 1.04. No toe brachial index obtained due to transmetatarsal amputation. LEFT SIDE Left toe brachial index: 0.14 Based on doppler and PVR waveforms mimimal to mild trifurcation disease present. No ankle brachial index obtained due to calcification. Small vessel disease present with a toe brachial index of .14. Technologist: Chaitanya Rose BA, RVT, RDCS Ordering physician: CIRO MANCERA Interpreting physician: Jacek Monsalve MD Final See Link below for Image [facility] CNPShe 11-20-2023 CNPN Telephone (AGVASACC) PETE CONLEY ([id number]) 1950 M Date Time Provider Department 11/20/23 TRAM DUBON During your visit today, we recorded the following information about you: Tram Dubon APRN.CNP 11/20/2023 10:58 AM Signed MULTI DISCIPLINARY HIGH RISK AVR CARDIAC TEAM Members present: Dr. Ryan, Dr. Juan, Dr. Cobb, Dr. Villareal, Dr. Fontenot, Dr. Mora, Dr. Brown, Dr. Matamoros, Kenneth Marcus APRN, CNP, Medhat Buck CNP, Edith Mullen PA., Toro Torres PA, Carroll Pruitt, PA, Diallo Varela PA, Geneva Calix, CRISELDA, Medhat Dubon CNP Presenting Physician: see members listed above PATIENT NAME:Pete Conley DATE: 11/20/2023 Outcome: Pete Conley history and imaging were reviewed by the physicians in attendance. Given patient's extensive hx (ESRD on dialysis, severe COPD, HFrEF) and given only symptom at this time is dyspnea the risk of an invasive procedure will likely not outwt the benefits. The collaborative recommendation is for medical management at this time. Patient has cardiology follow up on 12/06/23. These recommendations have been communicated to the patient by our office. Updated patient over phone with recommendations by Heart Team today. Encouraged patient to keep the scheduled cardiology visit for later this month. Patient verbalized understanding. All questions were answered. Tram Dubon APRN.CNP 11/20/2023 Allergies As of Date: 11/20/2023 Noted Allergy Reaction AMLODIPINE 04/29/2021 7 - Swelling ASPIRIN 04/05/2020 14 - Other: See Comments Comments: tacchycardia VICTOZA (LIRAGLUTIDE) 2021 14 - Other: See Comments Date Reviewed: 11/13/2023 Reviewed by: Vanesa Crum LPN - Fully Assessed Prescriptions as of 11/20/2023 - sodium chloride 0.9 %, flush, (BD POSIFLUSH) syringe Inject 2-10 mL intravenously as directed. For Echo procedure - CPAP 1 Each by Mask route daily at bedtime. [employer] - insulin lispro (HUMALOG KWIKPEN INSULIN SUBCUTANEOUS) Inject 5 Units/day subcutaneously two times a day. Lunch and Dinner - dapagliflozin propanediol (FARXIGA) 10 mg tablet Take 10 mg by mouth daily with breakfast. - carvedilol (COREG) 6.25 mg tablet Take 1 tablet by mouth twice daily. - cholecalciferol (VITAMIN D) 1,000 unit tab tablet Take 1,000 Units by mouth once daily. - insulin glargine (LANTUS) 100 unit/mL injection Inject 10 Units subcutaneously two times a day. - OXYGEN, HOME THERAPY, Inhale 1.5 L/min as instructed as needed for wheezing/shortness of breath. - allopurinol (ZYLOPRIM) 100 mg tablet Take 100 mg by mouth once daily. - tamsulosin ER (FLOMAX) 0.4 mg Take 0.4 mg by mouth once daily. Problem List As Of Date 11/20/2023 Noted Resolved Bilateral lower extremity edema [R60.0] 2021 Former smoker [Z87.891] 2021 Primary hypertension [I10] 02/16/2021 SOB (shortness of breath) on exertion [R06.02] 04/29/2021 Postinflammatory pulmonary fibrosis (HCC) [J84.*04/29/2021 MACY (obstructive sleep apnea) [G47.33] 04/29/2021 History of echocardiogram [Z92.89] 03/18/2021 Atelectasis [J98.11] 06/09/2021 Interstitial pulmonary disease (HCC) [J84.9] 06/09/2021 History of 2019 novel coronavirus disease (COVI*09/08/2021 History of echocardiography [Z92.89] 10/22/2021 History of cardiovascular stress test [Z92.89] 10/22/2021 Psoriasis [L40.9] 07/03/2022 MACY on CPAP [G47.33] 07/03/2022 DCM (dilated cardiomyopathy) (HCC) [I42.0] 01/02/2023 Chronic hypoxemic respiratory failure (HCC) [J9*01/02/2023 Chronic obstructive pulmonary disease (HCC) [J4*01/02/2023 Solitary pulmonary nodule [R91.1] 01/02/2023 Pulmonary nodules [R91.8] 04/19/2023 Class 2 severe obesity due to excess calories w*10/02/2023 Type 2 diabetes mellitus with stage 4 chronic k*10/02/2023 Mixed hyperlipidemia [E78.2] 10/02/2023 Chronic HFrEF (heart failure with reduced eject*10/02/2023 Nonrheumatic mitral valve regurgitation [I34.0] 10/02/2023 Obesity, Class II, BMI 35-39.9 [E66.9] 10/22/2023 Pleural effusion [J90] 10/22/2023 Encounter Status:Closed by TRAM DUBON on 11/20/23 [facility] 11-19-2023 CRISELDAN Telephone (CHELSEY) PETE CONLEY ([id number]) 1950 M Date Time Provider Department 11/19/23 TRAM DUBON During your visit today, we recorded the following information about you: Tram Dubon APRN.CNP 11/19/2023 12:47 PM Signed ----- Message from Zara Lopez sent at 11/19/2023 11:27 AM EDT ----- Patient called in wanting to speak to someone about the next steps. I told him someone from [facility] will reach out to him after discussion is brought up in the heart team meeting. #Which was stated in ov note 11/13/2023# Tram Dubon APRN.COMPUTER METEOROLOGIST 11/19/2023 12:50 PM Signed [facility] OPD Phone Note Surgeon: Dr. Juan Surgery: none to date Origin of the call: patient Date of the call: November 19, 2023 Diagnosis: mod/severe MVR, MV CAD Reason for call: updated after heart team meeting Contact information: [phone] (home) How call resolved: updated patient that heart team meeting is tomorrow. that after discussion, will inform him of the recommendations Required follow up: call tomorrow post meeting SIGNATURE: Tram Dubon APRN.CNP DATE of SERVICE: 11/19/2023 TIME of SERVICE: 12:47 PM Allergies As of Date: 11/19/2023 Noted Allergy Reaction AMLODIPINE 04/29/2021 7 - Swelling ASPIRIN 04/05/2020 14 - Other: See Comments Comments: tacchycardia VICTOZA (LIRAGLUTIDE) 2021 14 - Other: See Comments Date Reviewed: 11/13/2023 Reviewed by: Vanesa Crum LPN - Fully Assessed Prescriptions as of 11/19/2023 - sodium chloride 0.9 %, flush, (BD POSIFLUSH) syringe Inject 2-10 mL intravenously as directed. For Echo procedure - CPAP 1 Each by Mask route daily at bedtime. [employer] - insulin lispro (HUMALOG KWIKPEN INSULIN SUBCUTANEOUS) Inject 5 Units/day subcutaneously two times a day. Lunch and Dinner - dapagliflozin propanediol (FARXIGA) 10 mg tablet Take 10 mg by mouth daily with breakfast. - carvedilol (COREG) 6.25 mg tablet Take 1 tablet by mouth twice daily. - cholecalciferol (VITAMIN D) 1,000 unit tab tablet Take 1,000 Units by mouth once daily. - insulin glargine (LANTUS) 100 unit/mL injection Inject 10 Units subcutaneously two times a day. - OXYGEN, HOME THERAPY, Inhale 1.5 L/min as instructed as needed for wheezing/shortness of breath. - allopurinol (ZYLOPRIM) 100 mg tablet Take 100 mg by mouth once daily. - tamsulosin ER (FLOMAX) 0.4 mg Take 0.4 mg by mouth once daily. 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.*04/29/2021 MACY (obstructive sleep apnea) [G47.33] 04/29/2021 History of echocardiogram [Z92.89] 03/18/2021 Atelectasis [J98.11] 06/09/2021 Interstitial pulmonary disease (HCC) [J84.9] 06/09/2021 History of 2019 novel coronavirus disease (COVI*09/08/2021 History of echocardiography [Z92.89] 10/22/2021 History of cardiovascular stress test [Z92.89] 10/22/2021 Psoriasis [L40.9] 07/03/2022 MACY on CPAP [G47.33] 07/03/2022 DCM (dilated cardiomyopathy) (HCC) [I42.0] 01/02/2023 Chronic hypoxemic respiratory failure (HCC) [J9*01/02/2023 Chronic obstructive pulmonary disease (HCC) [J4*01/02/2023 Solitary pulmonary nodule [R91.1] 01/02/2023 Pulmonary nodules [R91.8] 04/19/2023 Class 2 severe obesity due to excess calories w*10/02/2023 Type 2 diabetes mellitus with stage 4 chronic k*10/02/2023 Mixed hyperlipidemia [E78.2] 10/02/2023 Chronic HFrEF (heart failure with reduced eject*10/02/2023 Nonrheumatic mitral valve regurgitation [I34.0] 10/02/2023 Obesity, Class II, BMI 35-39.9 [E66.9] 10/22/2023 Pleural effusion [J90] 10/22/2023 Encounter Status:Closed by TRAM DUBON on 11/19/23 [facility] Surinder 11-13-2023 CNOV Office Visit (AGVASACC) PETE CONLEY ([id number]) 1950 M Date Time Provider Department 11/13/23 3:00 PM AKHIL JUAN During your visit today, we recorded the following information about you: Pulse Respiration Blood pressure Weight 73/minute 18/minute 130/70 122.1 kg Height 1.803 m Omayra Calix APRN.CNP 11/13/2023 4:24 PM Signed STS for CABG AND MVR: Procedure Type: CABG + MVR PERIOPERATIVE OUTCOME ESTIMATE % Operative Mortality 39.3% without home O2 (with home O2 = 45.7%) Morbidity AND Mortality 57.9% Stroke 2.47% Renal Failure NA Reoperation 13.1% Prolonged Ventilation 51.8% Deep Sternal Wound Infection 1.57% Long Hospital Stay (>14 days) 46.7% Short Hospital Stay (<6 days)* 1.51% *higher values reflect a better outcome Clinical Summary Planned Surgery: CABG + MVR, Elective, First cardiovascular surgery Demographics: 73 year old, male, 122.1kg, 180.3cm, BMI: 37.6 kg/m? Lab Values: Creatinine: 3.78 mg/dL, Hematocrit: 36.5%, WBC Count: 7.49 10?/?L, Platelet Count: 364881 cells/?L PreOp Medications: Insulin diabetes control Substance Abuse: Former smoker Risk Factors / Comorbidities: Insulin-dependent Diabetes Mellitus, Dialysis, Hypertension, Syncope Pulmonary RF: Moderate CLD, Sleep Apnea Cardiac Status: Chronic heart failure, Ejection Fraction = 30% Coronary Artery Disease: 3 vessels diseased, Angina equivalent Valve Disease: Severe MR, Mild TR STS for isolated MVR: Procedure Type: Isolated MVR PERIOPERATIVE OUTCOME ESTIMATE % Operative Mortality 16.1% without home O2 (with home O2 = 21%) Morbidity AND Mortality 35.8% Stroke 4.02% Renal Failure NA Reoperation 5.85% Prolonged Ventilation 32.7% Deep Sternal Wound Infection 0.435% Long Hospital Stay (>14 days) 27.7% Short Hospital Stay (<6 days)* 6.89% *higher values reflect a better outcome Clinical Summary Planned Surgery: Isolated MVR, Elective, First cardiovascular surgery Demographics: 73 year old, male, 122.1kg, 180.3cm, BMI: 37.6 kg/m? Lab Values: Creatinine: 3.78 mg/dL, Hematocrit: 36.5%, WBC Count: 7.49 10?/?L, Platelet Count: 459745 cells/?L PreOp Medications: Insulin diabetes control Substance Abuse: Former smoker Risk Factors / Comorbidities: Insulin-dependent Diabetes Mellitus, Dialysis, Hypertension, Syncope Pulmonary RF: Moderate CLD, Sleep Apnea Cardiac Status: Chronic heart failure, Ejection Fraction = 30% Coronary Artery Disease: 3 vessels diseased, Angina equivalent Valve Disease: Severe MR, Mild TR Omayra Calix APRN.CRISELDA 11/13/2023 3:56 PM Signed You came in to see Dr. Juan today for surgical evaluation of mitral valve regurgitation likely secondary to severe multi vessel coronary artery disease. By reviewing your images/clinical data, Dr. Juan will discuss with our interventional cardiologists if any options for stenting blocked coronary arteries +/- any intervention for catheter-based mitral. No surgical intervention at this time given increased mortality risk. Our office will notify you of their recommendations. Thanks for coming in to see us today. Please call us if you have any concerns/questions: [phone] Omayra Calix APRN.COMPUTER METEOROLOGIST Cardiothoracic surgery TEST TUBE MAKER Akhil Juan MD 11/13/2023 4:24 PM Signed CARDIOTHORACICSURGERY PROGRESS NOTE SERVICE DATE: 11/13/2023 SERVICE TIME: 4:19 PM Pete Conley returns today discuss results of left and right heart catheterization and transesophageal echo. Transesophageal echo dated 10/30/2023 shows: The left ventricle is dilated. Left ventricular systolic function is moderately decreased. EF = 30-35% (visual est.) Indeterminate left ventricular diastolic dysfunction due to >2+ MR. - The right ventricle is dilated. Right ventricular systolic function is low normal. - There is moderately severe (3+) mitral valve regurgitation due to restricted leaflet motion likely related to ischemic heart disease. Regurgitant orifice area (PISA) is 0.29 cm?. - Estimated right ventricular systolic pressure is 47 mmHg plus right atrial pressure. Estimated right atrial pressure is not included as the IVC was not seen. - Exam was compared with the prior OUTSIDE echocardiographic exam performed on 09/24/23. No significant change noted when compared to report of prior study Left heart catheterization shows severe multivessel coronary disease: Findings: Left main Mild disease LAD 50% mid stenosis DFR of 0.79 which is hemodynamically significant. LCx 80% proximal stenosis, OM1 CONDUIT REAMER OPERATOR at the ostium RCA 80% mid stenoisis Right heart catheterization shows moderately severe to severe pulm hypertension: LVEDP: 31mmHg [id number] RV 62/16mmHg PA 56/25mmHg, mean 36mmHg PCWP 33mmHg On evaluation today, he and his family note that his dyspnea appears to be improved with more aggressive peritoneal dialysis. (more content not included)... Normal [facility] CNPNon 11-01-2023 HEIDE Telephone (AGVASACC) PETE CONLEY ([id number]) 1950 M Date Time Provider Department 11/01/23 AKHIL JUAN During your visit today, we recorded the following information about you: Niesha Leblanc LPN 11/01/2023 3:37 PM Signed Patient calling in and left message on Nurse's Line. Patient asking when his heart valve will be fixed? Niesha Leblanc LPN November 01, 2023 3:37 PM Niesha Leblanc LPN 11/02/2023 8:47 AM Signed Patient notified. Niesha Leblanc LPN November 02, 2023 8:47 AM Omayra Calix APRN.COMPUTER METEOROLOGIST You 15 hours ago (4:51 PM) Can you please let patient know he has appointment with Dr. Juan on 11/13/23 to review results and discuss surgery. Thanks! Allergies As of Date: 11/01/2023 Noted Allergy Reaction AMLODIPINE 04/29/2021 7 - Swelling ASPIRIN 04/05/2020 14 - Other: See Comments Comments: tacchycardia VICTOZA (LIRAGLUTIDE) 2021 14 - Other: See Comments Date Reviewed: 10/30/2023 Reviewed by: Belen Thurman RN - Fully Assessed Reason for Visit: Requests return call [Other] Cmt: Heart valve inquiry Prescriptions as of 11/02/2023 - sodium chloride 0.9 %, flush, (BD POSIFLUSH) syringe Inject 2-10 mL intravenously as directed. For Echo procedure - CPAP 1 Each by Mask route daily at bedtime. [employer] - insulin lispro (HUMALOG KWIKPEN INSULIN SUBCUTANEOUS) Inject 5 Units/day subcutaneously two times a day. Lunch and Dinner - dapagliflozin propanediol (FARXIGA) 10 mg tablet Take 10 mg by mouth daily with breakfast. - carvedilol (COREG) 6.25 mg tablet Take 1 tablet by mouth twice daily. - cholecalciferol (VITAMIN D) 1,000 unit tab tablet Take 1,000 Units by mouth once daily. - insulin glargine (LANTUS) 100 unit/mL injection Inject 10 Units subcutaneously two times a day. - OXYGEN, HOME THERAPY, Inhale 1.5 L/min as instructed as needed for wheezing/shortness of breath. - allopurinol (ZYLOPRIM) 100 mg tablet Take 100 mg by mouth once daily. - tamsulosin ER (FLOMAX) 0.4 mg Take 0.4 mg by mouth once daily. 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.*04/29/2021 MACY (obstructive sleep apnea) [G47.33] 04/29/2021 History of echocardiogram [Z92.89] 03/18/2021 Atelectasis [J98.11] 06/09/2021 Interstitial pulmonary disease (HCC) [J84.9] 06/09/2021 History of 2019 novel coronavirus disease (COVI*09/08/2021 History of echocardiography [Z92.89] 10/22/2021 History of cardiovascular stress test [Z92.89] 10/22/2021 Psoriasis [L40.9] 07/03/2022 MACY on CPAP [G47.33] 07/03/2022 DCM (dilated cardiomyopathy) (HCC) [I42.0] 01/02/2023 Chronic hypoxemic respiratory failure (HCC) [J9*01/02/2023 Chronic obstructive pulmonary disease (HCC) [J4*01/02/2023 Solitary pulmonary nodule [R91.1] 01/02/2023 Pulmonary nodules [R91.8] 04/19/2023 Class 2 severe obesity due to excess calories w*10/02/2023 Type 2 diabetes mellitus with stage 4 chronic k*10/02/2023 Mixed hyperlipidemia [E78.2] 10/02/2023 Chronic HFrEF (heart failure with reduced eject*10/02/2023 Nonrheumatic mitral valve regurgitation [I34.0] 10/02/2023 Obesity, Class II, BMI 35-39.9 [E66.9] 10/22/2023 Pleural effusion [J90] 10/22/2023 Encounter Status:Closed by NIESHA LEBLANC on 11/02/23 [facility] BRIEF OP NOTon 10-30-2023 BRIEF OP NOT HNO ID: [id number] Author: FREDO RYAN MD Service: Cardiovascular Medicine Author Type: Physician Type: Brief Op Note Filed: 10/30/2023 11:12 Note Text: Brief Cath note: Indications: Mitral regurgitation, preop evaluation Access: 6Fr. Right femoral artery, 5Fr. Right brachial vein Closure: Perclose, manual compression Findings: Left main Mild disease LAD 50% mid stenosis DFR of 0.79 which is hemodynamically significant. LCx 80% proximal stenosis, OM1 CONDUIT REAMER OPERATOR at the ostium RCA 80% mid stenoisis LVEDP: 31mmHg [id number] RV 62/16mmHg PA 56/25mmHg, mean 36mmHg PCWP 33mmHg Cardiac output 3.64L/min by thermodilution, and 5.85L/min by assumed Kole No intracardiac shunt Impressions: Severe multivessel CAD Severely elevated right sided pressures Moderate to severe pulmonary HTN Severely elevated LVEDP Recommend: Continue evaluation for MVR/CABG Needs more diuresis Fredo Gold MD Social Research Assistant of Internal Medicine [facility] Regional Section of Interventional Cardiology Automotive Machinist of Structural Heart Disease [facility] [address], [address] [place] [address] Facsimile: [phone] Email: [email or web address] Normal [facility] BRIEF OP NOT HNO ID: [id number] Author: LUIS FAUSTIN MD Service: Cardiovascular Medicine Author Type: Physician Type: Brief Op Note Filed: 10/30/2023 09:33 Note Text: TRANSESOPHAGEAL ECHOCARDIOGRAM REASON FOR EXAM: Evaluation for mitral regurgitation PROCEDURES: The procedure was explained to the patient with risks and benefits and informed consent was obtained. The oropharynx was anesthetized with viscous lidocaine 2% solution and benzocaine 20% mucosal spray. The patient received a total of 2 mg of Versed and 50 mcg of fentanyl for conscious sedation and pain control. Esophageal intubation was done with no difficulty. The patient tolerated the procedure well with no immediate postprocedure complications. Blood loss: None INTERPRETATION: Chambers: - Left ventricular systolic function is moderately reduced with LVEF 35% with severe hypokinesis/akinesis of the inferior/posterior wall - Right ventricular size and function is low normal. Valves: - Restricted posterior mitral valve leaflet with 3+ posteriorly directed mitral valve regurgitation RAMANA: - No left atrial appendage thrombus Shunts: - No evidence of shunt by color Doppler or agitated saline contrast study Aorta: - Mild atheroma noted Patient should be NPO for 2 hours post procedure. Please check gag reflex prior to oral intake. Full report of MILA will follow. Normal [facility] CARD CATH DIAGNOSTICon 10-29 CARD CATH DIAGNOSTIC Site Id: [facility] Lab #: DEFAULT Study Date: 10/30/2023 Start Time: End Time: Name Duty Fredo Gold MD PROC 1 Jessie Quinones RN PROC SCRUB 1 Padmini Hemphill RN PROC RECORD 1 Clayton Phelan RT PROC TDP DISPLAYS ANALYST 1 + + PATIENT INFORMATION + + Name: PETE CONLEY [facility] : 1950 Age: 73 years Gender: Height: 71 in / 180 cm Weight: 269.00 lb / 122.02 kg BMI: 37.66 kg/m BSA: 2.39 m + -------+ CLINICAL HISTORY/INDICATIONS + -------+ Appropriate Use Criteria (Diag): Severe chronic [place] or prosthetic mitral regurgitation, patient asymptomatic related to valvular disease; AUC score = 5Preoperative assessment before valvular surgery; AUC score = 7. Procedural Status: Elective CAD Presentation: Symptoms Likely to be Ischemic Angina Classification (within 2 weeks): No Angina Heart Failure Clinical History: PAtient presents for preop evaluation prior to mitral valve surgery. + + DIAGNOSTIC FINDINGS + + Coronary Anatomy: Right Dominant Injection Site(s): Coronary Artery LMT: _ The LMT is normal. LAD: _ The mid LAD is narrowed 60 % - focal disease. Additional Comment: DFR% of the mid LAD stenosis was 0.79 which is significantly abnormal indicating hemodynamically significant stenosis. 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 _ The mid circumflex is narrowed 80 % - focal disease. RAMUS: _ Ramus Status: Not Applicable. RCA: _ The proximal RCA - moderate diffuse disease. _ The mid RCA is narrowed 80 % - severe diffuse disease. _ The distal RCA is narrowed 30 % - focal disease. + + IMPRESSION/PLAN + + Impression:Severe multivessel CAD Severely elevated right sided pressures Moderate to severe pulmonary HTN Severely elevated LVEDP Recommended Treatment: Medical Therapy, CABG and Valve repair / replacement. Plan: Continue evaluation for MVR/CABG Needs more diuresis + + HEMODYNAMICS - XPER + + + +---- --+-----+-------+----- -+------+------+ Measurement Name Sys Aimee End Aimee Mean A Wave V Wave + +---- --+-----+-------+----- -+------+------+ PA 56.00 25.00 36.00 + +---- --+-----+-------+----- -+------+------+ PW 33.00 31.00 36.00 + +---- --+-----+-------+----- -+------+------+ RV 62.00 16.00 19.00 + +---- --+-----+-------+----- -+------+------+ RA 18.00 23.00 23.00 + +---- --+-----+-------+----- -+------+------+ LV 126.00 14.00 31.00 + +---- --+-----+-------+----- -+------+------+ LVp 131.00 15.00 33.00 + +---- --+-----+-------+----- -+------+------+ AOp 129.00 55.00 83.00 + +---- --+-----+-------+----- -+------+------+ AO 155.00 71.00 122.00 + +---- --+-----+-------+----- -+------+------+ AO 144.00 66.00 95.00 + +---- --+-----+-------+----- -+------+------+ AO 148.00 69.00 98.00 + +---- --+-----+-------+----- -+------+------+ Oximetry: + + ----+ +--- --+---+-----+ Time Site O2 Saturation O2 PO2 HB + + ----+ +--- --+---+-----+ 10/30/2023 9:56:37 AM AO 84.00 16.91 14.80 + + ----+ +--- --+---+-----+ 10/30/2023 9:56:37 AM RA 57.00 11.47 14.80 + + ----+ +--- --+---+-----+ 10/30/2023 9:56:37 AM AO 84.00 16.91 14.80 + + ----+ +--- --+---+-----+ 10/30/2023 9:56:37 AM PA 57.00 11.47 14.80 + + ----+ +--- --+---+-----+ Cardiac Outputs: +--------+------+ KOLE SV 106.40 +--------+------+ KOLE CO 5.85 +--------+------+ KOLE CI 2.45 +--------+------+ KOLE HR +--------+------+ MAN CO +--------+------+ MAN CI +--------+------+ TD SV 66.30 +--------+------+ TD CO 3.64 +--------+------+ TD CI 1.52 +--------+------+ ANGIO SV +--------+------+ ANGIO CO +--------+------+ ANGIO CI +--------+------+ + + ADVERSE OUTCOME(s)/COMPLICATIO N(s) + + None + ---------+ PROCEDURAL & TECHNICAL DETAILS + ---------+ Date Time Description 10/30/2023 12:00:00 AM Right Heart Cath 10/30/2023 12:00:00 AM Left Heart Cath 10/30/2023 12:00:00 AM WAVE [employer]IRE *MEDICAL HISTORY* CAD Presentation: Symptoms Likely to be Ischemic Angina Classification (within 2 weeks): No Angina Heart Failure Family History of CAD: Unknown Dyslipidemia: No Hypertension: Y (more content not included)... Normal [facility] ECHO TRANSESOPHAGEALon 10-29 ECHO TRANSESOPHAGEAL Echocardiography Report: Transesophageal Echo [facility] Date of service: 10/30/2023 8:45:01 AM [facility] Ordering physician: OMAYRA CALIX Indication: Initial evaluation valvular heart disease Technologist: Susannah Benz [facility] Interpreting physician: Luis Faustin MD PATIENT: Name: PETE CONLEY : 1950 Age: 73 years Gender: M History of cardiomyopathy, valvular heart disease and heart failure with hospitalization. Primary rhythm: sinus. Height: 180.30 cm BSA: 2.47 m Weight: 122.02 kg BMI: 37.5 kg/m Pre Heart rate 60 bpm Blood pressure 122/62 mmHg Agitated saline was administered to rule out PFO. Color Doppler was utilized to interrogate the cardiac valves assessed and spectral Doppler was utilized to determine the flow velocities and pressure gradients reported in this exam. Medications Total Dose Versed 2.00 mg Fentanyl 20.00 mcg Agitated Saline 10.00 ml Hurricaine x1, Viscous Lidocaine x1 Exam performed under moderate sedation with continuous ECG, pulse oximetry and cardiopulmonary monitoring by nursing, overseen by the performing physician(s), for an intraservice time of 20 min. (Stop Time: 9:28) No specimens collected. No blood loss. The interpreting physician was present for and actively participated in the MILA procedure. MEASUREMENTS: Value Normal Max aortic dimension 3.1 cm Ao < 3.8 Ejection Fraction 30-35 % (visual est.) EF > 52 FINDINGS: LEFT VENTRICLE The left ventricle is dilated. Left ventricular systolic function is moderately decreased. Indeterminate left ventricular diastolic dysfunction due to >2+ MR. Wall Motion: The entire lateral wall and entire inferior wall are severely hypokinetic. The entire anterior wall, entire septum, and apex are mildly hypokinetic. RIGHT VENTRICLE The right ventricle is dilated. Right ventricular systolic function is low normal. Estimated right ventricular systolic pressure is 47 mmHg plus right atrial pressure. Estimated right atrial pressure is not included as the IVC was not seen. LEFT ATRIUM The left atrial cavity is dilated. The peak emptying velocity from the left atrial appendage is 49.2 cm/s. There is no left atrial appendage thrombus. RIGHT ATRIUM The right atrial cavity is dilated. The eustachian valve appears prominent. MITRAL VALVE There is mild mitral annular calcification observed posterior. There is moderately severe (3+) mitral valve regurgitation due to restricted leaflet motion likely related to ischemic heart disease. There is a posteriorly directed regurgitant jet. Regurgitant orifice area (PISA) is 0.29 cm . TRICUSPID VALVE There is mild tricuspid annular calcification observed posterior. There is mild (1+ - 2+) tricuspid valve regurgitation. AORTIC VALVE There is no aortic valve stenosis. There is no aortic valve regurgitation. Tricuspid aortic valve. There is mild thickening. There is mild calcification. PULMONIC VALVE The pulmonic valve cusps are structurally normal. There is no pulmonic valve regurgitation. AORTA The visualized aorta is normal in size. Measurements - Sinus: 3.0 cm. Mid ascending aorta 3.1 cm. There is a mild atheroma in the mid descending thoracic. PULMONARY ARTERIES The pulmonary arteries are unseen or not interrogated. INTERATRIAL SEPTUM There is no patent foramen ovale as detected by Doppler and agitated saline contrast. PERICARDIUM There is no pericardial effusion. CONCLUSIONS: - Exam indication: Initial evaluation valvular heart disease - The left ventricle is dilated. Left ventricular systolic function is moderately decreased. EF = 30-35% (visual est.) Indeterminate left ventricular diastolic dysfunction due to >2+ MR. - The right ventricle is dilated. Right ventricular systolic function is low normal. - There is moderately severe (3+) mitral valve regurgitation due to restricted leaflet motion likely related to ischemic heart disease. Regurgitant orifice area (PISA) is 0.29 cm . - Estimated right ventricular systolic pressure is 47 mmHg plus right atrial pressure. Estimated right atrial pressure is not included as the IVC was not seen. - Exam was compared with the prior OUTSIDE echocardiographic exam performed on 09/24/23. No significant change noted when compared to report of prior study. * * * Final * * * CC [employer] : [id number] Normal [facility] NURSING PROGon 10-30-2023 NURSING PROG HNO ID: [id number] Author: BELEN THURMAN RN Service: ? Author Type: Registered Nurse Type: Nursing Progress Note Filed: 10/30/2023 14:20 Note Text: 1400 home instructions reinforced. Reviewed perclose patient education. Right groin site remains soft. VSS. Normal [facility] CNOVon 10-16-2023 CNOV Office Visit (AGVASACC) PETE CONLEY ([id number]) 1950 M Date Time Provider Department 10/16/23 10:30 AM AKHIL JUAN AGVASACC During your visit today, we recorded the following information about you: Pulse Respiration Blood pressure Weight 78/minute 18/minute 124/70 121.6 kg Height 1.803 m Vanesa Crum LPN 10/16/2023 10:55 AM Signed CARDIAC REHAB 5 METER WALK TEST SERVICE DATE: 10/16/2023 SERVICE TIME: 1035 ASSESSMENT: Pete inamn is short of breath with walk test AND light headed after 2nd time. Rested for 15 seconds AND lightheadedness gone. 7.82 sec. 8.00 sec 8.62 sec SIGNATURE: Vanesa Crum LPN PATIENT NAME: Pete Conley DATE: October 16, 2023 TIME: 10:52 AM PAGER/CONTACT #: [id number] SultanaOmayra guadalupe, ELLIE.COMPUTER METEOROLOGIST 10/16/2023 12:03 PM Signed STS Procedure Type: Isolated MVR PERIOPERATIVE OUTCOME ESTIMATE % Operative Mortality 14.8% Morbidity AND Mortality 36.5% Stroke 3.89% Renal Failure NA Reoperation 6.49% Prolonged Ventilation 29% Deep Sternal Wound Infection 0.228% Long Hospital Stay (>14 days) 21.2% Short Hospital Stay (<6 days)* 8.78% *higher values reflect a better outcome Clinical Summary Planned Surgery: Isolated MVR, Elective, First cardiovascular surgery Demographics: 73 year old, male, 121.6kg, 180.3cm, BMI: 37.4 kg/m? Lab Values: Creatinine: 3.72 mg/dL, Hematocrit: 44.8%, WBC Count: 5.9 10?/?L, Platelet Count: 049146 cells/?L PreOp Medications: Insulin diabetes control Substance Abuse: Former smoker Risk Factors / Comorbidities: Insulin-dependent Diabetes Mellitus, Dialysis, Hypertension, Family Hx of CAD, Syncope Pulmonary RF: Severity Unknown CLD, Home O?, Sleep Apnea Cardiac Status: Acute and chronic heart failure, Ejection Fraction = 30% Coronary Artery Disease: Angina equivalent Valve Disease: Severe MR, Moderate TR STS for CABG AND MVR: PERIOPERATIVE OUTCOME ESTIMATE % Operative Mortality 31% Morbidity AND Mortality 50.1% Stroke 1.56% Renal Failure NA Reoperation 9.47% Prolonged Ventilation 48.7% Deep Sternal Wound Infection 0.827% Long Hospital Stay (>14 days) 42.5% Short Hospital Stay (<6 days)* 2.18% *higher values reflect a better outcome Clinical Summary Planned Surgery: CABG + MVR, Elective, First cardiovascular surgery Demographics: 73 year old, male, 121.6kg, 180.3cm, BMI: 37.4 kg/m? Lab Values: Creatinine: 3.72 mg/dL, Hematocrit: 44.8%, WBC Count: 5.9 10?/?L, Platelet Count: 920505 cells/?L PreOp Medications: Insulin diabetes control Substance Abuse: Former smoker Risk Factors / Comorbidities: Insulin-dependent Diabetes Mellitus, Dialysis, Hypertension, Family Hx of CAD, Syncope Pulmonary RF: Severity Unknown CLD, Home O?, Sleep Apnea Cardiac Status: Acute and chronic heart failure, Ejection Fraction = 30% Coronary Artery Disease: Angina equivalent Valve Disease: Severe MR, Moderate TR Omayra Calix APRN.CRISELDA 10/16/2023 11:33 AM Signed You came in to see Dr. Juan today for surgical evaluation of mitral valve disease. By reviewing your images/clinical data, Dr. Juan recommends obtaining the following tests which will be scheduled for you by our office: Transesophageal echocardiogram Right and left cardiac catheterization Pulmonary function tests Dr. Juan recommends heart catheterization which will be more informative rather than stress test. Please keep your appointment for carotid ultrasound on 10/26/23. Once above tests (and heart monitor) are resulted, we will see you in the office to discuss next steps. Thanks for coming in to see us today. Please call us if you have any concerns/questions: [phone] Omayra Calix APRN.COMPUTER METEOROLOGIST Cardiothoracic surgery Akhil Medrano MD 10/16/2023 12:03 PM Signed CARDIOTHORACIC SURGERY CONSULT / HANDP SERVICE DATE: 10/16/2023 SERVICE TIME: 11:43 AM Subjective PRIMARY SERVICE: Cardiothoracic Surgery CHIEF COMPLAINT: severe mitral regurgitation, cardiomyopathy, acute on chronic combined systolic and diastolic CHF ted setting of CKD on peritoneal dialysis (diabetic nephropathy) and chronic lung disease (COPD, ILD) HPI: This is a 73 year old man referred for evaluation of severe mitral regurgitation, cardiomyopathy, acute on chronic combined systolic and diastolic CHF ted setting of CKD on peritoneal dialysis (diabetic nephropathy) and chronic lung disease (COPD, ILD). He has had serial echos over the past few years which have shown variable amounts of MR and largely well-preserved LVEF. His most recent echo in our system is from 12/2022: Echocardiogram demonstrates concentric left ventricular hypertrophy. Ejection fraction 50%. Seems to be slight hypokinesis of distal septal wall. Mild to moderate degree of mitral regurgitation. Mild degree of tricuspid regurgitation. PA pressure increased at 35 mmHg. (more content not included)... Normal [facility] No Panel Informationon 07-23 [facility] CT CHEST WO CONTRASTon 04-04 CT CHEST WO CONTRAST [address] [place], [place] [address] Name: JARVISPETE Phys: CRYSTAL BAUER D.O. : [birth year] Age: 73 Sex: M Acct: [id number] Loc: RAD CT Exam Date: 04/04/23 Status: REG CLI Radiology No.: Unit Number: [id number] Exam # Type/Exam [id number] CT / CT CHEST WO CONTRAST EXAMINATION: CT OF THE CHEST WITHOUT CONTRAST 04/04/2023 9:40 am TECHNIQUE: CT of the chest was performed without the administration of intravenous contrast. Multiplanar reformatted images are provided for review. Automated exposure control, iterative reconstruction, and/or weight based adjustment of the mA/kV was utilized to reduce the radiation dose to as low as reasonably achievable. COMPARISON: CT chest high-resolution 12/18/2022 HISTORY: ORDERING SYSTEM PROVIDED HISTORY: TECHNOLOGIST PROVIDED HISTORY: Reason for Exam: . Pulmonary nodules/cysts, additional history per patient of CHF and history of pneumonia FINDINGS: Mediastinum: The lack of IV contrast limits evaluation of the mediastinum, and vasculature. Redemonstration of nonenlarged mediastinal lymph nodes. Moderate cardiomegaly. Trace pericardial effusion similar prior. Thoracic aorta is nonaneurysmal. Advanced coronary atherosclerosis is again noted. Main pulmonary artery caliber is within normal limits. Similar prominent subcarinal lymph node measuring 1.9 cm unchanged from prior. Lungs/pleura: Small pleural effusions right greater than left. New left upper lobe nodular opacity measuring 0.7 cm not definitely seen on prior exam series 4, image 23. Previously noted ground-glass nodule in the left lower lobe is in the region obscured right-sided effusion. Similar interstitial lung changes better appreciated on high-resolution CT chest. Similar pulmonary vascular engorgement. No definite new or enlarging nodule within differences of technique. No focal consolidation identified, mild bibasilar atelectasis adjacent to effusions. Central airways are patent. Upper Abdomen: Partially visualized mild ascites and cholelithiasis. Soft Tissues/Bones: Unchanged mild compression deformity of a midthoracic vertebral body. Moderate multilevel degenerative disc disease similar prior. IMPRESSION: Previously seen 1.2 cm left lower lobe ground-glass nodule is obscured by the left-sided pleural effusion. There is a new 0.7 cm nodule in the left upper lobe not seen on prior exam, given the interval development from recent exam of 12/18/2022 this is most likely a subclinical infectious/inflammator y process. Per Fleischner society guidelines recommend a follow-up exam in 6-12 months. At time of follow-up CT, a prone exam could be obtained in addition to supine in order to visualize the left lower lobe nodule versus prior thoracentesis. Similar incidental and chronic findings as above, including mild ascites, and cholelithiasis. Electronically signed By Nabil Yuan 04/07/2023 2:54:00 PM EST Workstation ID : [id number] < > Reported By: NABIL YUAN M.D. Signed In Fluency By: NABIL YUAN M.D. << Signature on File>> Reported By: NABIL YUAN M.D. Signed By: NABIL YUAN M.D. Tests performed at: [address] [address] [facility] [address] CHEST WO IVCONon 04-04-20 [facility] BMPon 03-05-2023 Anion gap [Moles/Vol] 16.9 mmol/L Normal 15-22 [facility] Comment on above: Performed By: #### L 100.0030, L100.0010, L301.0080 ####ML - UH [id number] [place] [address] Calcium [Mass/Vol] 9.3 mg/dL Normal 8.8-10.2 [facility] Comment on above: Performed By: #### L 100.0030, L100.0010, L301.0080 ####ML - UH [id number] [place] [address] Chloride [Moles/Vol] 100 mmol/L Normal 98-107 [facility] Comment on above: Performed By: #### L 100.0030, L100.0010, L301.0080 #### - [id number] [place] [address] CO2 [Moles/Vol] 23 mmol/L Normal 22-29 [facility] Comment on above: Performed By: #### L 100.0030, L100.0010, L301.0080 #### - [facility] [place] [address] Creatinine [Mass/Vol] 3.77 mg/dL High 0.70-1.20 [facility] Comment on above: Performed By: #### L 100.0030, L100.0010, L301.0080 ####[facility] [place] [address] eGFR if AFR JOSSELIN 19 [facility] Comment on above: Result Comment: eGFR >= 60 Indicates normal kidney function. * eGFR IS AN ESTIMATE * (AFR JOSSELIN = ) (non-AFR AM = NON-) MDRD calculation used in the eGFR should not be used to dose medications. For further limitations of the eGFR please refer to the Physician Website or the National Kidney Disease Education Program website (www.nkdep.nih.gov). Performed By: #### L 100.0030, L100.0010, L301.0080 ####ML - [id number] [place] [address] eGFR nonAFR Josselin 16 [facility] Comment on above: Performed By: #### L 100.0030, L100.0010, L301.0080 #### - [id number] [place] [address] Glucose [Mass/Vol] 213 mg/dL High 82-115 [facility] Comment on above: Performed By: #### L 100.0030, L100.0010, L301.0080 ####ML - UH [id number] [place] [address] Potassium [Moles/Vol] 4.9 mmol/L Normal 3.5-5.0 [facility] Comment on above: Performed By: #### L 100.0030, L100.0010, L301.0080 ####ML - [id number] [place] [address] Sodium [Moles/Vol] 135 mmol/L Normal 135-145 [facility] Comment on above: Performed By: #### L 100.0030, L100.0010, L301.0080 ####ML - [id number] [place] [address] Urea nitrogen [Mass/Vol] 59 mg/dL High 8-23 [facility] Comment on above: Performed By: #### L 100.0030, L100.0010, L301.0080 ####ML - [id number] [place] [address] Basic metabolic 2000 panelon 03-05-2023 Anion gap [Moles/Vol] 16.9 mmol/L 15 - 2 2 mmol/L [facility] Calcium [Mass/Vol] 9.3 mg/dL 8.8 - 10. 2 mg/dL [facility] Chloride [Moles/Vol] 100 mmol/L 98 - 10 7 mmol/L [facility] CO2 [Moles/Vol] 23 mmol/L 22 - 29 mmol/L [facility] Creatinine [Mass/Vol] 3.77 mg/dL High 0.70 - 1.20 mg/dL [facility] eGFR-All Other Races [address] [facility] GFR/1.73 sq M.predicted among blacks MDRD (S/P/Bld) [Vol rate/Area] 19 mL/min/{1.73_m2} [facility] Glucose [Mass/Vol] 213 mg/dL High 82 - 115 mg/dL [facility] Potassium [Moles/Vol] 4.9 mmol/L 3.5 - 5.0 mmol/L [facility] Sodium [Moles/Vol] 135 mmol/L 135 - 145 mmol/L [facility] Urea nitrogen [Mass/Vol] 59 mg/dL High 8 - 23 mg/dL [facility] CBCon 03-05-2023 BASO# 0.05 x10(3) Normal 0.00-0.10 [facility] Comment on above: Performed By: #### L 100.0070 #### ML - LABORATORY [address] [place] [address] Basophils/100 WBC (Bld) 0.3 % Normal 0.0-1.0 [facility] Comment on above: Performed By: #### L 100.0070 #### ML - LABORATORY [address] [place] [address] EOS# 0.01 x10(3) Normal 0.00-0.54 [facility] Comment on above: Performed By: #### L 100.0070 #### ML - LABORATORY [address] [place] [address] Eosinophils/100 WBC (Bld) 0.1 % Low 0.5-4.9 [facility] Comment on above: Performed By: #### L 100.0070 #### ML - LABORATORY [address] [place] [address] Erythrocyte distribution width (RBC) [Ratio] 15.7 % High 12.7-15.3 [facility] Comment on above: Performed By: #### L 100.0070 #### ML - LABORATORY [address] [place] [address] Hematocrit (Bld) [Volume fraction] 36.5 % Low 42.0-51.0 [facility] Comment on above: Performed By: #### L 100.0070 #### ML - LABORATORY [address] [place] [address] Hemoglobin (Bld) [Mass/Vol] 11.4 g/dL Low 14.0-17.2 [facility] Comment on above: Performed By: #### L 100.0070 #### ML - LABORATORY [address] [place] [address] IMM GRAN# 0.29 x10(3) High 0-0 [facility] Comment on above: Performed By: #### L 100.0070 #### ML - LABORATORY [address] [place] [address] IMM GRAN% 1.5 % Normal [facility] Comment on above: Performed By: #### L 100.0070 #### ML [facility] [address] [place] [address] LYMPH# 0.77 x10(3) Low 1.00-3.50 [facility] Comment on above: Performed By: #### L 100.0070 #### ML [facility] [address] [place] [address] Lymphocytes/100 WBC (Bld) 3.9 % Low 16.0-48.0 [facility] Comment on above: Performed By: #### L 100.0070 #### ML [facility] [address] [place] [address]2442 MCH (RBC) [Entitic mass] 31.5 pg Normal 28.8-32.2 [facility] Comment on above: Performed By: #### L 100.0070 #### ML [facility] [address] [place] [address] MCHC (RBC) [Mass/Vol] 31.2 g/dL Low 33.0-36.0 [facility] Comment on above: Performed By: #### L 100.0070 #### ML [facility] [address] [place] [address] 26967 MCV (RBC) [Entitic vol] 100.8 fL High 80.0-94.0 [facility] Comment on above: Performed By: #### L 100.0070 #### ML [facility] [address] [place] [address] 19709 MONO# 2.09 x10(3) High 0.30-0.80 [facility] Comment on above: Performed By: #### L 100.0070 #### ML [facility] [address] [place] [address] Monocytes/100 WBC (Bld) 10.7 % Normal 4.3-11.2 [facility] Comment on above: Performed By: #### L 100.0070 #### ML - LABORATORY [address] [place] [address] NEUT# 16.33 x10(3) High 1.40-6.50 [facility] Comment on above: Performed By: #### L 100.0070 #### ML - LABORATORY [address] [place] [address] Neutrophils/100 WBC (Bld) 83.5 % High 45.0-73.0 [facility] Comment on above: Performed By: #### L 100.0070 #### ML - LABORATORY [address] [place] [address]27[address] Platelet mean volume (Bld) [Entitic vol] 10.5 fL High 7.4-9.2 [facility] Comment on above: Performed By: #### L 100.0070 #### ML - LABORATORY [address] [place] [address]451 PLT 109 X10(3) Low 150-450 [facility] Comment on above: Performed By: #### L 100.0070 #### ML - LABORATORY [address] [place] [address] 45730 RBC 3.62 x10(6) Low 4.80-5.50 [facility] Comment on above: Performed By: #### L 100.0070 #### ML - LABORATORY [address] [place] [address]2544 WBC 19.5 x10(3) High 4.5-10.0 [facility] Comment on above: Performed By: #### L 100.0070 #### ML - LABORATORY [address] [place] [address] CBC W Auto Differential pane l (Bld)on 03-05-2023 BASO ABS 0.05 x10(3) 0.00 - 0.10 x10(3) [facility] Basophils/100 WBC (Bld) 0.3 % 0.0 - 1.0 % [facility] EOS ABS 0.01 x10(3) 0.00 - 0.54 x10(3) [facility] Eosinophils/100 WBC (Bld) 0.1 % Low 0.5 - 4.9 % [facility] Erythrocyte distribution width (RBC) [Ratio] 15.7 % High 12.7 - 15.3 % [facility] Hematocrit (Bld) [Volume fraction] 36.5 % Low 42.0 - 51.0 % [facility] Hemoglobin (Bld) [Mass/Vol] 11.4 g/dL Low 14.0 - 17.2 g/dL [facility] Immature Gran % 1.5 % [facility] Immature Gran Abs 0.29 x10(3) High 0 - 0 x10(3) [facility] LYMPH ABS 0.77 x10(3) Low 1.00 - 3.50 x10(3) [facility] Lymphocytes/100 WBC (Bld) 3.9 % Low 16.0 - 48.0 % [facility] MCH (RBC) [Entitic mass] 31.5 pg 28.8 - 32.2 pg [facility] MCHC (RBC) [Mass/Vol] 31.2 g/dL Low 33.0 - 36.0 g/dL [facility] MCV (RBC) [Entitic vol] 100.8 fL High 80.0 - 94.0 fl [facility] MONO ABS 2.09 x10(3) High 0.30 - 0.80 x10(3) [facility] Monocytes/100 WBC (Bld) 10.7 % 4.3 - 11.2 % [facility] Neutrophil Ab 16.33 x10(3) High 1.40 - 6.50 x10(3) [facility] Neutrophils/100 WBC (Bld) 83.5 % High 45.0 - 73.0 % [facility] Platelet Count 109 X10(3) Low 150 - 450 X10(3) [facility] Platelet mean volume (Bld) [Entitic vol] 10.5 fL High 7.4 - 9.2 fl [facility] RBC 3.62 x10(6) Low 4.80 - 5.50 x10(6) [facility] WBC 19.5 x10(3) High 4.5 - 10.0 x10(3) [facility] CHEST-ONE VIEW ONLY - CXR1on 03-05-2023 CHEST-ONE VIEW ONLY - CXR1 [address] [address] Name: PETE CONLEY Phys: VICK ROSE M.D. : [birth year] Age: 73 Sex: M Acct: [id number] Loc: ED Exam Date: 03/05/23 Status: REG ER Radiology No.: Unit Number: [id number] Exam # Type/Exam [id number] RAD / CHEST-ONE VIEW ONLY - CXR1 EXAMINATION: ONE XRAY VIEW OF THE CHEST03/05/2023 12:32 pm COMPARISON: 12/31/2022, CT thorax 12/18/2022 HISTORY: Weakness. Cough FINDINGS: The cardiomediastinal contours are normal. Vascular structures appear within normal limits. Patchy left basilar airspace disease noted. Increased density noted in the right apex. No pleural fluid or pneumothorax. No aggressive osseous lesions identified.Degenerativ e changes seen of the shoulders and spine. IMPRESSION: Left basilar airspace disease could relate to pneumonia in the proper clinical setting. Follow to resolution. Asymmetric density in the right lung apex is not visible on the recent prior exams and is presumably related to the rotation of the radiograph. Electronically signed By Maximino Villagomez MD 03/05/2023 12:44:38 PM EST Workstation ID : [id number] < > Reported By: MAXIMINO VILLAGOMEZ M.D. Signed In Fluency By: MAXIMINO VILLAGOMEZ M.D. << Signature on File>> Reported By: MAXIMINO VILLAGOMEZ M.D. Signed By: MAXIMINO VILLAGOMEZ M.D. Tests performed at: [place] [address] Normal [facility] EKGon 03-05-2023 Atrial Rate 83 BPM [facility] Calculated P Dutton 62 degrees [facility] Calculated R Dutton 71 degrees [facility] Calculated T Dutton 67 degrees [facility] P-R Interval 184 ms [facility] QRS Duration 164 ms [facility] QT Interval 424 ms [facility] QTC Calculation (Bazett) 498 ms [facility] Ventricular Rate 83 BPM [facility] ELECTROCARDIOGRAMon 03-05-20 Electrocardiogram [place] [address] [facility] ELECTROCARDIOGRAM REPORT Patient: PETE CONLEY Ordering: VICK ROSE M.D. [id number] [age] M Exam Date: 03/05/23 Report #: [id number] Status: REG ER ED Test Reason : Blood Pressure : / mmHG Vent. Rate : 083 BPM Atrial Rate : 083 BPM P-R Int : 184 ms QRS Dur : 164 ms QT Int : 424 ms P-R-T Axes : 062 071 067 degrees QTc Int : 498 ms Normal sinus rhythm Normal axis and intervals No acute ST/T wave changes Confirmed by VICK ROSE MD ([id number]) on 03/05/2023 12:23:07 PM Referred By: NO DOCTOR YET Confirmed By:VICK ROSE MD Signed in GE MUSE 03/05/23 1223 VICK ROSE M.D. cc: << Signature on File>> Reported By: VICK ROSE M.D. Signed By: VICK ROSE M.D. Tests performed at: [place] [address] Normal [facility] HEPATIC PANELon 03-05-2023 A:G RATIO 1.09 Low 1.1-2.5 [facility] Comment on above: Performed By: #### L 100.0030, L100.0010, L301.0080 ####[facility] [id number] [place] [address] Albumin [Mass/Vol] 3.4 g/dL Low 3.5-5.2 [facility] Comment on above: Performed By: #### L 100.0030, L100.0010, L301.0080 ####ML [facility] [id number] [place] [address] ALK. PHOS 64 U/L Normal 40-130 [facility] Comment on above: Performed By: #### L 100.0030, L100.0010, L301.0080 ####[facility] [id number] [place] [address] ALT [Catalytic activity/Vol] 6 U/L Normal 5-41 [facility] Comment on above: Performed By: #### L 100.0030, L100.0010, L301.0080 #### - [id number] [place] [address] AST [Catalytic activity/Vol] 24 U/L Normal 5-40 [facility] Comment on above: Performed By: #### L 100.0030, L100.0010, L301.0080 ####ML - [id number] [place] [address] Bilirubin [Mass/Vol] 0.8 mg/dL Normal 0.2-1.2 [facility] Comment on above: Performed By: #### L 100.0030, L100.0010, L301.0080 #### - [id number] [place] [address] DIRECT BILIRUBI <0.2 Normal 0.0-0.3 [facility] Comment on above: Performed By: #### L 100.0030, L100.0010, L301.0080 #### - [id number] [place] [address] Globulin (S) [Mass/Vol] 3.1 g/dL Normal 1.5-4.5 [facility] Comment on above: Performed By: #### L 100.0030, L100.0010, L301.0080 #### - [id number] [place] [address] Protein [Mass/Vol] 6.5 g/dL Normal 6.4-8.3 [facility] Comment on above: Performed By: #### L 100.0030, L100.0010, L301.0080 #### - [id number] [place] [address] HIGH SENSITIVITY TROPONIN To n 03-05-2023 TROPONIN T(HIGHLY SENSITIVE) 120.00 ng/L Critically high 6 - 12 ng/L [facility] Hepatic function 2000 panelo n 03-05-2023 Albumin [Mass/Vol] 3.4 g/dL Low 3.5 - 5.2 g/dL [facility] Albumin/Globulin [Mass ratio] 1.09 {ratio} Low 1.1 - 2.5 [facility] ALP [Catalytic activity/Vol] 64 U/L 40 - 130 U/L [facility] ALT [Catalytic activity/Vol] 6 U/L 5 - 41 U/L [facility] AST [Catalytic activity/Vol] 24 U/L 5 - 40 U/L [facility] Bilirubin [Mass/Vol] 0.8 mg/dL 0.2 - 1 .2 mg/dL [facility] Direct Bilirubin <0.2 0.0 - 0.3 mg/dL [facility] Globulin (S) [Mass/Vol] 3.1 g/dL 1.5 - 4.5 g/dL [facility] Protein [Mass/Vol] 6.5 g/dL 6.4 - 8.3 g/dL [facility] MANUAL DIFFon 03-05-2023 BANDS 2 % Normal 0-6 [facility] Comment on above: Performed By: #### L 100.0070 #### ML - LABORATORY [address] [place] [address] HYPO SLT [facility] Comment on above: Performed By: #### L 100.0070 #### ML - LABORATORY [address] [place] [address] 334[address] LYMPHS 5 % Low 16-48 [facility] Comment on above: Performed By: #### L 100.0070 #### ML - LABORATORY [address] [place] [address] MACRO SLT [facility] Comment on above: Performed By: #### L 100.0070 #### ML - LABORATORY [address] [place] [address] 47046 MONOS 7 % Normal 4-12 [facility] Comment on above: Performed By: #### L 100.0070 #### ML - LABORATORY [address] [place] [address] 72165 PLT EST LOW [facility] Comment on above: Performed By: #### L 100.0070 #### ML - LABORATORY [address] [place] [address] 36408 SEGS 86 % High 45-73 [facility] Comment on above: Performed By: #### L 100.0070 #### ML - LABORATORY [address] [place] [address] [facility] Comment on above: Performed By: #### L 100.0070 #### ML - [facility] LABORATORY [address] [place] [address] Bands % 2 % 0 - 6 % [facility] Cells Counted 100 [facility] Hypochromasia SLT [facility] Lymphocyte 5 % Low 16 - 48 % [facility] Macrocytosis SLT [facility] Monocyte 7 % 4 - 12 % [facility] Platelet Estimate LOW [facility] Seg Neutrophil 86 % High 45 - 73 % [facility] Natriuretic peptide.B prohor adam N-Terminal [Mass/Vol]on 03-05-2023 Natriuretic peptide B (Bld) [Mass/Vol] 79882 pg/mL [facility] PRO-BNPon 03-05-2023 Natriuretic peptide B (Bld) [Mass/Vol] 45924 pg/mL Normal [facility] Comment on above: Result Comment: HF U NLIKELY: NT-PRO BNP <300 pg/mL HF LIKELY: NT-PRO BNP >450 pg/mL (AGE <50) NT-PRO BNP >900 pg/mL (AGE 50-75) NT-PRO BNP >1800 pg/mL (AGE >75) HF VERY LIKELY: NT-PRO BNP >10,000 pg/mL SOURCE: PRIDE ALG[employer]M FOR PRO-BNP; CRITICAL PATHWAYS IN CARDIOLOGY VOLUME 3, NUMBER 4; JULY 2004 Performed By: #### L 301.0460 #### ML - [facility] [address] [place] [address] PTon 03-05-2023 INR Coag (PPP) [Relative time] 1.0 {INR} Normal 0.8-1.1 [facility] Comment on above: Result Comment: CO UMADIN PROTOCOLS INR values are generated for use in patients on coumadin. INR values stabilize 7 days after the start of coumadin or changes in coumadin dosage. The usual TARGET/INR range is: INDICATION INR RANGE Prophylaxis/treatment of: Venous Thrombosis, Pulmonary Embolism 2.0-3.0 Prevention of systemic embolism from: Tissue heart valves 2.0-3.0 Acute myocardial infarction (to prevent systemic embolism) 2.0-3.0 AMI (to prevent recurrent MN) 2.5-3.5 Valvular heart disease 2.0-3.0 Atrial fibrillation 2.0-3.0 Mechanical prosthetic valves (high risk) 2.5-3.5 [place] mechanical valve in aortic position 2.0-3.0 Presence of Lupus Anticoagulant or Antiphospholipid Antibodies 2.5-3.5 PANIC VALUE: GREATER THAN OR EQUAL TO 4.5 Performed By: #### L 200.1642, L200.1602 #### ML - LABORATORY [address] [place] [address] PT Coag (PPP) [Time] 11.3 s Normal 9.4-12.5 [facility] Comment on above: Performed By: #### L 200.1642, L200.1602 #### ML - LABORATORY [address] [place] [address] PT panel Coag (PPP)on 2022 INR Coag (PPP) [Relative time] 1.0 {INR} 0.8 - 1.1 [facility] PT Coag (PPP) [Time] 11.3 s 9.4 - 1 2.5 secs [facility] PTTon 03-05-2023 aPTT Coag (Bld) [Time] 20.1 s Low 25.1-36.5 [facility] Comment on above: Result Comment: Hepa rin Protocol Therapeutic Range = 54.0-90.0 secs Performed By: #### L 200.1642, L200.1602 ####ML - UH [id number] [place] [address] XR CHEST 1V FRONTALon 2022 [facility] aPTT Coag (PPP) [Time]on aPTT Coag (Bld) [Time] 20.1 s Low 25.1 - 36.5 secs [facility] hsTROP Ton 03-05-2023 hsTROP T 120.00 ng/L Critically high 6-12 [facility] Comment on above: Result Comment: When assessing risk for acute coronary syndromes: In patients undergoing blood draw greater than 2 hours from symptom onset, with history of very low to moderate risk and non-ischemic ECG, an initial hs-Troponin T less than 12 ng/L AND a 1 hour delta hs-Troponin T less than 3 ng/L should be considered very low risk for 30 day MACE. Performed By: #### L 100.0030, L100.0010, L301.0080 ####ML - [id number] [place] [address] LABORATORYOrdered By: Lashon gerard on 01-23-2023 Glucose [Mass/Vol] 140 mg/dL Invalid Interpretation Code 82 - 115 mg/dL [facility] Work Phone: IGG,A,M,Zohaib 01-08-2023 IgA [Mass/Vol] 192 mg/dL Normal 61-437 [facility] Comment on above: Performed By: #### L 100.0070 #### ML - LABORATORY [address] [place] [address] IGE TOTAL 1277 IU/mL High 6-495 [facility] Comment on above: Result Comment: Perf ormed at: - [facility] [address] [id number] Tankroom Tender: Ashlee Elliott MD, Phone: [phone] Performed By: #### L 100.0070 #### ML - LABORATORY [address] [place] [address] IgG [Mass/Vol] 774 mg/dL Normal 603-1613 [facility] Comment on above: Performed By: #### L 100.0070 #### ML - LABORATORY [address] [place] [address] IgM [Mass/Vol] 817 mg/dL High 15-143 [facility] Comment on above: Result Comment: Resu lts confirmed on dilution. Performed at: - [facility] [address] [id number] Tankroom Tender: Dean Reeves PhD, Phone: [phone] Performed By: #### L 100.0070 #### ML - LABORATORY [address] [place] [address] IMMGLOB QUANT A/E/G/M (LABCO RP)on 01-08-2023 IgA 192 mg/dL 61 - 437 mg/dL [facility] IgG 774 mg/dL 603 - 1,613 mg/dL [facility] IgM 817 mg/dL High 15 - 143 mg/dL [facility] Immunoglobulin E 1277 IU/mL High 6 - 495 IU/mL [facility] .Auto Diffon 01-03-2023 Basophil, Absolute 0.1 10 3/mcL Normal 0.0-0.3 [facility] ([place]) Comment on above: Performed By: #### G FR, BMP #### [address] [address] Basophils/100 WBC (Bld) 0.7 % Normal 0.0-2.5 [facility] ([place]) Comment on above: Performed By: #### G FR, BMP #### [address] [address] Eosinophil, Absolute 0.6 10 3/mcL Normal 0.0-0.7 [facility] ([place]) Comment on above: Performed By: #### G FR, BMP #### [address] [address] Eosinophils/100 WBC (Bld) 5.9 % Normal 0.0-6.0 [facility] ([place]) Comment on above: Performed By: #### G FR, BMP #### [address] [address] Lymphocyte, Absolute 1.0 10 3/mcL Normal 0.9-4.3 [facility] ([place]) Comment on above: Performed By: #### G FR, BMP #### [address] [address] Lymphocytes/100 WBC (Bld) 9.8 % Low 20.0-40.0 [facility] ([place]) Comment on above: Performed By: #### G FR, BMP #### [address] [address] Monocyte, Absolute 1.1 10 3/mcL Normal 0.1-1.4 [facility] ([place]) Comment on above: Performed By: #### G FR, BMP #### [address] [address] Monocytes/100 WBC (Bld) 10.7 % Normal 2.0-13.0 [facility] ([place]) Comment on above: Performed By: #### G FR, BMP #### [address] [address] Neutrophils/100 WBC (Bld) 72.9 % Normal 50.0-75.0 [facility] ([place]) Comment on above: Performed By: #### Mell FR, BMP #### [address] [address] .GFRon 01-03-2023 GFR 16 ml/min/1.73sqm Normal [facility] ([place]) Comment on above: Result Comment: GFR Population mean for , Non- Americans Ages 20-29 = 116 mL/min/1.73 sq.m. Ages 30-39 = 107 mL/min/1.73 sq.m. Ages 40-49 = 99 mL/min/1.73 sq.m. Ages 50-59 = 93 mL/min/1.73 sq.m. Ages 60-69 = 85 mL/min/1.73 sq.m. Ages 70+ = 75 mL/min/1.73 sq.m. Chronic Kidney Disease: Less than 60 mL/min/1.73 square meters End Stage Renal Disease: Less than 15 mL/min/1.73 square meters Performed By: #### A IRA JOHNSON, CBC #### [address] [address] GFR Non- 13 ml/min/1.73sqm Normal [facility] ([place]) Comment on above: Result Comment: GFR Population mean for , Non- Americans Ages 20-29 = 116 mL/min/1.73 sq.m. Ages 30-39 = 107 mL/min/1.73 sq.m. Ages 40-49 = 99 mL/min/1.73 sq.m. Ages 50-59 = 93 mL/min/1.73 sq.m. Ages 60-69 = 85 mL/min/1.73 sq.m. Ages 70+ = 75 mL/min/1.73 sq.m. Chronic Kidney Disease: Less than 60 mL/min/1.73 square meters End Stage Renal Disease: Less than 15 mL/min/1.73 square meters Performed By: #### A IRA JOHNSON, CBC #### [address] [address] .NEUABSon 01-03-2023 Neutrophil, Absolute 7.7 10 3/mcL Normal 2.3-8.1 [facility] ([place]) Comment on above: Performed By: #### A IRA JOHNSON, CBC #### [address] [address] BMPon 01-03-2023 BUN/Creatinine Ratio 32.2 ratio High 10.0-22.0 [facility] ([place]) Comment on above: Performed By: #### A IRA JOHNSON, CBC #### [address] [address] Calcium [Mass/Vol] 9.4 mg/dL Normal 8.7-10.4 [facility] ([place]) Comment on above: Performed By: #### A IRA JOHNSON, CBC #### [address] [address] Chloride [Moles/Vol] 98 mmol/L Normal 98-110 [facility] ([place]) Comment on above: Performed By: #### A IRA JOHNSON, CBC #### [address] [address] CO2 [Moles/Vol] 28 mmol/L Normal 22-32 [facility] ([place]) Comment on above: Performed By: #### A IRA JOHNSON, CBC #### [address] [address] Creatinine [Mass/Vol] 4.50 mg/dL High 0.60-1.40 [facility] [place] Comment on above: Performed By: #### A IRA JOHNSON, CBC #### [address] [address] Electrolyte Balance 10.0 mEq/L Normal 4.0-15.0 [facility] ([place]) Comment on above: Performed By: #### A IRA JOHNSON, CBC #### [address] [address] Glucose [Mass/Vol] 242 mg/dL High 82-115 [facility] [place] Comment on above: Performed By: #### A IRA JOHNSON, CBC #### [place] [address] Potassium [Moles/Vol] 5.0 mmol/L Normal 3.5-5.0 [facility] [place] Comment on above: Result Comment: Spec imen slightly hemolyzed. Performed By: #### A IRA JOHNSON, CBC #### [place] [id number] Sodium [Moles/Vol] 136 mmol/L Normal 136-145 [facility] [place] Comment on above: Performed By: #### A IRA JOHNSON, CBC #### [place] [address] Urea nitrogen [Mass/Vol] 145.0 mg/dL Critically abnormal 8.0-22.0 [facility] ([place]) Comment on above: Performed By: #### A IRA JOHNSON, CBC #### [place] [address] CBCon 01-03-2023 Erythrocyte distribution width (RBC) [Ratio] 14.8 % Normal 11.5-15.5 [facility] ([place]) Comment on above: Performed By: #### Mell FR, BMP #### [place] [address] Hematocrit (Bld) [Volume fraction] 41.0 % Normal 40.0-52.0 [facility] ([place]) Comment on above: Performed By: #### Mell FR, BMP #### [place] [address] Hgb 13.0 G/dL Normal 13.0-17.5 [facility] ([place]) Comment on above: Performed By: #### G FR, BMP #### [place] [id number] MCH (RBC) [Entitic mass] 30.8 pg Normal 27.0-33.0 [facility] ([place]) Comment on above: Performed By: #### G FR, BMP #### [place] [address] MCHC 31.8 G/dL Low 32.0-36.0 [facility] ([place]) Comment on above: Performed By: #### G FR, BMP #### [address] [address] MCV (RBC) [Entitic vol] 96.7 fL Normal 81.0-100.0 [facility] ([place]) Comment on above: Performed By: #### G FR, BMP #### [address] [address] Platelet 216 10 3/mcL Normal 150-450 [facility] ([place]) Comment on above: Performed By: #### G FR, BMP #### [address] [address] Platelet mean volume (Bld) [Entitic vol] 9.1 fL Normal 6.4-10.5 [facility] ([place]) Comment on above: Performed By: #### G FR, BMP #### [place] [id number] RBC 4.24 10 6/mcL Low 4.50-6.00 [facility] ([place]) Comment on above: Performed By: #### G FR, BMP #### [address] [address] WBC 10.5 10 3/mcL Normal 4.5-10.8 [facility] ([place]) Comment on above: Performed By: #### G , BMP #### [address] [address] EMERGENCY DEPARTMENT REPORTo n 01-01-2023 EMERGENCY [place] [address] HEALTH INFORMATION MANAGEMENT EMERGENCY DEPARTMENT REPORT Patient: PETE CONLEY SARA HAY D.O. [id number] M Status: REG ER ED Date of Service: 12/31/22 CHIEF COMPLAINT: Weakness for the past couple of days, blood sugar over 300. HISTORY OF PRESENT ILLNESS: The patient is a 72-year-old male presenting to the Emergency Department with chief complaint of increased weakness. He states he has just been feeling fatigued and weak for the past 2 to 3 days. He denies any vomiting or diarrhea. He does admit to a little bit of cough. He states the cough has been nonproductive. He denies any chest pain. No shortness of breath. No swelling in his legs. He does have a recent past medical history of some chronic kidney disease that is in the process of getting set up with peritoneal dialysis. Apparently that appointment is this coming . He states that today his blood sugar was over 300, which prompted him to come to the emergency department. REVIEW OF SYSTEMS: Negative except for HPI. PHYSICAL EXAMINATION: GENERAL: The patient is alert and appeared to be in no acute distress. He has stable vital signs. HEENT: The head was normocephalic, atraumatic. Eyes; pupils are equal with normal conjunctivae. Skin was dry. He is cooperative with the exam. HEART: Regular rate and rhythm. I do not appreciate any murmurs, gallops, or rubs. LUNGS: Diminished. I do not appreciate any wheezing. He did have a bronchospastic cough. ABDOMEN: Soft and nontender. EXTREMITIES: There is no pitting edema to the lower extremities. EMERGENCY DEPARTMENT CLINICAL COURSE: The patient was hemodynamically stable, nonseptic, and nontoxic while here in the Emergency Department. I did get some lab work on the patient. He had a white count of 14,000, hemoglobin 13.6, hematocrit 42.6, platelet count was normal. Chemistry panel showed a normal bicarb, a normal anion gap. He does have a creatinine that is a BUN of 120, creatinine is 3.58 and his creatinine is actually improved from the last hospitalization, it was 4.0. He has a blood sugar here which was 189. Initial troponin was 86. A delta troponin was 80. ProBNP is chronically elevated and in last hospital stay, it was 12,000; today, it is 13,000, that I think is likely related to his chronic kidney disease. Urinalysis showed no signs of infection. Flu, RSV, and COVID were negative. Here chest x- ray shows a left lower lobe infiltrate with a mild central venous pulmonary congestion. At this point, the patient is coughing. I do think that his symptoms are related to pneumonia. He is not hypoxic. He is not tachypneic. At this point, he has a CURB-65 score of 2. At this point, he does not appear to be septic in nature. I think it is appropriate to treat the patient with oral antibiotics as an outpatient. I am going to get him first dose of Augmentin here. I am going to get a prescription for Augmentin as well as doxycycline. I do want him to follow up with primary care doctor. He is to return to the emergency department if symptoms worsen or if new symptoms develop. He is to keep his appointment with manager strategy for this week and he is to return to the emergency department if symptoms worsen. Clinically, he does not appear to be in a CHF exacerbation. He is not in fluid overload. He is mentating well. At this point, I think he can be discharged home in stable condition. IMPRESSION: 1. Pneumonia of left lung. 2. Chronic kidney disease. DISPOSITION: The patient will be discharged home. Report#: Dict ID [id number] / Int ID [id number] 12/31/22 2245 SARA HAY D.O. cc: MOISES PRATER M.D.; SARA HAY D.O. << Signature on File>> Reported By: SARA HAY D.O. Signed By: SARA HAY D.O. Tests performed at: [address] [address] Normal [facility] BMPon 12-31-2022 Anion gap [Moles/Vol] 19.7 mmol/L Normal 15-22 [facility] Comment on above: Performed By: #### L 301.0080, L100.0010, L100.0030 ####ML - [id number] [place] [address] Calcium [Mass/Vol] 9.6 mg/dL Normal 8.8-10.2 [facility] Comment on above: Performed By: #### L 301.0080, L100.0010, L100.0030 ####ML - UH [id number] [place] [address] Chloride [Moles/Vol] 97 mmol/L Low 98-107 [facility] Comment on above: Performed By: #### L 301.0080, L100.0010, L100.0030 #### - [id number] [place] [address] CO2 [Moles/Vol] 26 mmol/L Normal 22-29 [facility] Comment on above: Performed By: #### L 301.0080, L100.0010, L100.0030 ####[facility] [place] [address] Creatinine [Mass/Vol] 3.58 mg/dL High 0.70-1.20 [facility] Comment on above: Performed By: #### L 301.0080, L100.0010, L100.0030 ####[facility] [place] [address] eGFR if AFR JOSSELIN 20 [facility] Comment on above: Result Comment: eGFR >= 60 Indicates normal kidney function. * eGFR IS AN ESTIMATE * (AFR JOSSELIN = ) (non-AFR AM = NON-) MDRD calculation used in the eGFR should not be used to dose medications. For further limitations of the eGFR please refer to the Physician Website or the National Kidney Disease Education Program website (www.nkdep.nih.gov). Performed By: #### L 301.0080, L100.0010, L100.0030 #### - [id number] [place] [address] eGFR nonAFR Josselin 17 [facility] Comment on above: Performed By: #### L 301.0080, L100.0010, L100.0030 ####[facility] [id number] [place] [address] Glucose [Mass/Vol] 189 mg/dL High 82-115 [facility] Comment on above: Performed By: #### L 301.0080, L100.0010, L100.0030 ####[facility] [id number] [place] [address] Potassium [Moles/Vol] 4.7 mmol/L Normal 3.5-5.0 [facility] Comment on above: Performed By: #### L 301.0080, L100.0010, L100.0030 ####ML - UH [id number] [place] [address] Sodium [Moles/Vol] 138 mmol/L Normal 135-145 [facility] Comment on above: Performed By: #### L 301.0080, L100.0010, L100.0030 ####ML - UH [id number] [place] [address] Urea nitrogen [Mass/Vol] 120 mg/dL High 8-23 [facility] Comment on above: Performed By: #### L 301.0080, L100.0010, L100.0030 ####ML - [id number] [place] [address] Basic metabolic 2000 panelon 12-31-2022 Anion gap [Moles/Vol] 19.7 mmol/L 15 - 2 2 mmol/L [facility] Calcium [Mass/Vol] 9.6 mg/dL 8.8 - 10. 2 mg/dL [facility] Chloride [Moles/Vol] 97 mmol/L Low 98 - 10 7 mmol/L [facility] CO2 [Moles/Vol] 26 mmol/L 22 - 29 mmol/L [facility] Creatinine [Mass/Vol] 3.58 mg/dL High 0.70 - 1.20 mg/dL [facility] eGFR-All Other Races 17 [facility] GFR/1.73 sq M.predicted among blacks MDRD (S/P/Bld) [Vol rate/Area] 20 mL/min/{1.73_m2} [facility] Glucose [Mass/Vol] 189 mg/dL High 82 - 115 mg/dL [facility] Potassium [Moles/Vol] 4.7 mmol/L 3.5 - 5.0 mmol/L [facility] Sodium [Moles/Vol] 138 mmol/L 135 - 145 mmol/L [facility] Urea nitrogen [Mass/Vol] 120 mg/dL High 8 - 23 mg/dL [facility] CBCon 12-31-2022 BASO# 0.10 x10(3) Normal 0.00-0.10 [facility] Comment on above: Performed By: #### L 100.0070 #### ML - LABORATORY [address] [place] [address] Basophils/100 WBC (Bld) 0.4 % Normal 0.0-1.0 [facility] Comment on above: Performed By: #### L 100.0070 #### ML - LABORATORY [address] [place] [address] EOS# 0.30 x10(3) Normal 0.00-0.54 [facility] Comment on above: Performed By: #### L 100.0070 #### ML [facility] LABORATORY [address] [place] [address] Eosinophils/100 WBC (Bld) 1.8 % Normal 0.5-4.9 [facility] Comment on above: Performed By: #### L 100.0070 #### ML - LABORATORY [address] [place] [address] Erythrocyte distribution width (RBC) [Ratio] 14.8 % Normal 12.7-15.3 [facility] Comment on above: Performed By: #### L 100.0070 #### ML [facility] LABORATORY [address] [place] [address] Hematocrit (Bld) [Volume fraction] 42.6 % Normal 42.0-51.0 [facility] Comment on above: Performed By: #### L 100.0070 #### ML - LABORATORY [address] [place] [address] Hemoglobin (Bld) [Mass/Vol] 13.6 g/dL Low 14.0-17.2 [facility] Comment on above: Performed By: #### L 100.0070 #### ML [facility] LABORATORY [address] [place] [address] LYMPH# 0.80 x10(3) Low 1.00-3.50 [facility] Comment on above: Performed By: #### L 100.0070 #### ML - LABORATORY [address] [place] [address] Lymphocytes/100 WBC (Bld) 5.9 % Low 16.0-48.0 [facility] Comment on above: Performed By: #### L 100.0070 #### [facility] LABORATORY [address] [place] [address] MCH (RBC) [Entitic mass] 30.9 pg Normal 28.8-32.2 [facility] Comment on above: Performed By: #### L 100.0070 #### ML [facility] LABORATORY [address] [place] [address] MCHC (RBC) [Mass/Vol] 31.9 g/dL Low 33.0-36.0 [facility] Comment on above: Performed By: #### L 100.0070 #### ML [facility] LABORATORY [address] [place] [address] MCV (RBC) [Entitic vol] 96.9 fL High 80.0-94.0 [facility] Comment on above: Performed By: #### L 100.0070 #### ML [facility] LABORATORY [address] [place] [address] MONO# 1.40 x10(3) High 0.30-0.80 [facility] Comment on above: Performed By: #### L 100.0070 #### ML [facility] LABORATORY [address] [place] [address] Monocytes/100 WBC (Bld) 10.3 % Normal 4.3-11.2 [facility] Comment on above: Performed By: #### L 100.0070 #### ML [facility] LABORATORY [address] [place] [address] NEUT# 11.50 x10(3) High 1.40-6.50 [facility] Comment on above: Performed By: #### L 100.0070 #### [facility] [address] [place] [address] Neutrophils/100 WBC (Bld) 81.6 % High 45.0-73.0 [facility] Comment on above: Performed By: #### L 100.0070 #### ML [facility] LABORATORY [address] [place] [address] Platelet mean volume (Bld) [Entitic vol] 9.2 fL Normal 7.4-9.2 [facility] Comment on above: Performed By: #### L 100.0070 #### ML - LABORATORY [address] [place] [address] PLT 248 X10(3) Normal 150-450 [facility] Comment on above: Performed By: #### L 100.0070 #### ML - LABORATORY [address] [place] [address] RBC 4.40 x10(6) Low 4.80-5.50 [facility] Comment on above: Performed By: #### L 100.0070 #### ML - LABORATORY [address] [place] [address] WBC 14.0 x10(3) High 4.5-10.0 [facility] Comment on above: Performed By: #### L 100.0070 #### ML - LABORATORY [address] [place] [address] CBC W Auto Differential pane l (Bld)on 12-31-2022 BASO ABS 0.10 x10(3) 0.00 - 0.10 x10(3) [facility] Basophils/100 WBC (Bld) 0.4 % 0.0 - 1.0 % [facility] EOS ABS 0.30 x10(3) 0.00 - 0.54 x10(3) [facility] Eosinophils/100 WBC (Bld) 1.8 % 0.5 - 4.9 % [facility] Erythrocyte distribution width (RBC) [Ratio] 14.8 % 12.7 - 15.3 % [facility] Hematocrit (Bld) [Volume fraction] 42.6 % 42.0 - 51.0 % [facility] Hemoglobin (Bld) [Mass/Vol] 13.6 g/dL Low 14.0 - 17.2 g/dL [facility] LYMPH ABS 0.80 x10(3) Low 1.00 - 3.50 x10(3) [facility] Lymphocytes/100 WBC (Bld) 5.9 % Low 16.0 - 48.0 % [facility] MCH (RBC) [Entitic mass] 30.9 pg 28.8 - 32.2 pg [facility] MCHC (RBC) [Mass/Vol] 31.9 g/dL Low 33.0 - 36.0 g/dL [facility] MCV (RBC) [Entitic vol] 96.9 fL High 80.0 - 94.0 fl [facility] MONO ABS 1.40 x10(3) High 0.30 - 0.80 x10(3) [facility] Monocytes/100 WBC (Bld) 10.3 % 4.3 - 11.2 % [facility] Neutrophil Ab 11.50 x10(3) High 1.40 - 6.50 x10(3) [facility] Neutrophils/100 WBC (Bld) 81.6 % High 45.0 - 73.0 % [facility] Platelet Count 248 X10(3) 150 - 450 X10(3) [facility] Platelet mean volume (Bld) [Entitic vol] 9.2 fL 7.4 - 9.2 fl [facility] RBC 4.40 x10(6) Low 4.80 - 5.50 x10(6) [facility] WBC 14.0 x10(3) High 4.5 - 10.0 x10(3) [facility] CHEST-ONE VIEW ONLY - CXR1on 12-31-2022 CHEST-ONE VIEW ONLY - CXR1 [place] [address] Name: PETE CONLEY Phys: SARA HAY D.O. : 48 Age: 72 Sex: M Acct: [id number] Loc: ED Exam Date: 12/31/22 Status: [facility] ER Radiology No.: Unit Number: [id number] Exam # Type/Exam [id number] RAD / CHEST-ONE VIEW ONLY - CXR1 EXAMINATION: ONE XRAY VIEW OF THE CHEST12/31/2022 6:09 pm CHEST ONE VIEW AP/PA EXAM DESCRIPTION: COMPARISON: Chest, December 22, 2022 HISTORY: ORDERING SYSTEM PROVIDED HISTORY: TECHNOLOGIST PROVIDED HISTORY: Reason for Exam: NEAR SYNCOPE FINDINGS: Single AP radiograph of the chest was obtained. Patchy opacity left lower lobe. No pleural effusion, or pneumothorax. Mild central venous pulmonary congestion. The cardiomediastinal silhouette is unremarkable. The bones and soft tissues are unremarkable. IMPRESSION: Left lower lobe infiltrate with mild central venous pulmonary congestion.. Electronically signed By Alex Garcia MD 12/31/2022 8:29:42 PM EST Workstation ID : [id number] < > Reported By: ALEX GARCIA M.D. Signed In Fluency By: ALEX GARCIA M.D. << Signature on File>> Reported By: ALEX GARCIA M.D. Signed By: ALEX GARCIA M.D. Tests performed at: [place] [address] [facility] ELECTROCARDIOGRAMon 01-01-[address] [facility] [address] HEALTH INFORMATION MANAGEMENT ELECTROCARDIOGRAM REPORT Patient: PETE CONLEY Ordering: SARA HAY D.O. [id number] M Exam Date: 12/31/22 Report #: [id number] Status: DEP ER ED Test Reason : Blood Pressure : / mmHG Vent. Rate : 085 BPM Atrial Rate : 085 BPM P-R Int : 180 ms QRS Dur : 160 ms QT Int : 424 ms P-R-T Axes : 065 067 052 degrees QTc Int : 504 ms Normal sinus rhythm Right bundle branch block Abnormal ECG When compared with ECG of 23-DEC-2022 05:22, No significant change was found Confirmed by DENISE VALDES MD ([id number]) on 01/02/2023 3:06:47 PM Referred By: Confirmed By:DENISE VALDES MD Signed in MUSE 01/02/23 1507 DENISE VALDES M.D. cc: << Signature on File>> Reported By: DENISE VALDES M.D. Signed By: DENISE VALDES M.D. Tests performed at: [place] [address] Normal [facility] FLU A/B AND RSV (PCR) (SOD )on 12-31-2022 FLU A (PCR) Negative NEGATIVE [facility] FLU B (PCR) Negative NEGATIVE [facility] RSV PCR Negative NEGATIVE [facility] FLU RSVon 12-31-2022 FLU A (PCR) Negative Normal NEGATIVE [facility] Comment on above: Order Comment: What is the source+ SWAB Performed By: #### L 100.0070 #### ML - LABORATORY [address] [place] [address] 17670 FLU B (PCR) Negative Normal NEGATIVE [facility] Comment on above: Order Comment: What is the source+ SWAB Performed By: #### L 100.0070 #### [facility] [address] [place] [address] 15734 RSV PCR Negative Normal NEGATIVE [facility] Comment on above: Order Comment: What is the source+ SWAB Performed By: #### L 100.0070 #### [facility] [address] [place] [address] 92679 GLUCOSE FSon 12-31-2022 Glucose [Mass/Vol] 184 mg/dL High 70-110 [facility] Comment on above: Performed By: #### L 100.0070 ####[address] [address] Glucose post fast [Mass/Vol] on 12-31-2022 Glucose [Mass/Vol] 184 mg/dL High 70 - 110 mg/dL [facility] HEPATIC PANELon 12-31-2022 A:G RATIO 0.87 Low 1.1-2.5 [facility] Comment on above: Performed By: #### L 301.0080, L100.0010, L100.0030 ####[facility] [id number] [place] [address] Albumin [Mass/Vol] 3.6 g/dL Normal 3.5-5.2 [facility] Comment on above: Performed By: #### L 301.0080, L100.0010, L100.0030 ####[facility] [id number] [place] [address] ALK. PHOS 96 U/L Normal 40-130 [facility] Comment on above: Performed By: #### L 301.0080, L100.0010, L100.0030 ####[address] [address] ALT [Catalytic activity/Vol] 10 U/L Normal 5-41 [facility] Comment on above: Performed By: #### L 301.0080, L100.0010, L100.0030 #### - [id number] [place] [address] AST [Catalytic activity/Vol] 24 U/L Normal 5-40 [facility] Comment on above: Performed By: #### L 301.0080, L100.0010, L100.0030 ####ML - [id number] [place] [address] Bilirubin [Mass/Vol] 0.4 mg/dL Normal 0.2-1.2 [facility] Comment on above: Performed By: #### L 301.0080, L100.0010, L100.0030 ####[facility] [id number] [place] [address] 149[address] DIRECT BILIRUBI <0.2 Normal 0.0-0.3 [facility] Comment on above: Performed By: #### L 301.0080, L100.0010, L100.0030 ####[facility] [id number] [place] [address] Globulin (S) [Mass/Vol] 4.1 g/dL Normal 1.5-4.5 [facility] Comment on above: Performed By: #### L 301.0080, L100.0010, L100.0030 #### - [id number] [place] [address] Protein [Mass/Vol] 7.7 g/dL Normal 6.4-8.3 [facility] Comment on above: Performed By: #### L 301.0080, L100.0010, L100.0030 #### - [id number] [place] [address] HIGH SENSITIVITY TROPONIN To n 12-31-2022 TROPONIN T(HIGHLY SENSITIVE) 80.02 ng/L Critically high 6 - 12 ng/L [facility] TROPONIN T(HIGHLY SENSITIVE) 86.46 ng/L Critically high 6 - 12 ng/L [facility] Hepatic function 2000 panelo n 12-31-2022 Albumin [Mass/Vol] 3.6 g/dL 3.5 - 5.2 g/dL [facility] Albumin/Globulin [Mass ratio] 0.87 {ratio} Low 1.1 - 2.5 [facility] ALP [Catalytic activity/Vol] 96 U/L 40 - 130 U/L [facility] ALT [Catalytic activity/Vol] 10 U/L 5 - 41 U/[facility] AST [Catalytic activity/Vol] 24 U/L 5 - 40 U/L [facility] Bilirubin [Mass/Vol] 0.4 mg/dL 0.2 - 1 .2 mg/dL [facility] Direct Bilirubin <0.2 0.0 - 0.3 mg/dL [facility] Globulin (S) [Mass/Vol] 4.1 g/dL 1.5 - 4.5 g/dL [facility] Protein [Mass/Vol] 7.7 g/dL 6.4 - 8.3 g/dL [facility] Natriuretic peptide.B prohor adam N-Terminal [Mass/Vol]on 12-31-2022 Natriuretic peptide B (Bld) [Mass/Vol] 30832 pg/mL [facility] PRO-BNPon 12-31-2022 Natriuretic peptide B (Bld) [Mass/Vol] 06527 pg/mL Normal [facility] Comment on above: Result Comment: HF U NLIKELY: NT-PRO BNP <300 pg/mL HF LIKELY: NT-PRO BNP >450 pg/mL (AGE <50) NT-PRO BNP >900 pg/mL (AGE 50-75) NT-PRO BNP >1800 pg/mL (AGE >75) HF VERY LIKELY: NT-PRO BNP >10,000 pg/mL SOURCE: PRIDE ALGORITHM FOR PRO-BNP; CRITICAL PATHWAYS IN CARDIOLOGY VOLUME 3, NUMBER 4; JULY 2004 Performed By: #### L 100.0070 #### [facility] - [facility] [address] [place] [address] RAPID COVIDon 12-31-2022 SARS-CoV-2 (COVID-19) RNA DOM+probe Ql (Unsp spec) Negative Normal NEGATIVE [facility] Comment on above: Order Comment: What is the source+ SWAB Result Comment: THIS TEST HAS BEEN AUTHORIZED BY FDA UNDER AN EMERGENCY USE AUTHORIZATION (EUA). NEGATIVE: NEGATIVE FOR COVID19 (SARS-CoV-2) BY PCR POSITIVE: POSITIVE FOR COVID19 (SARS-CoV-2) BY PCR PRESUMPTIVE POSITIVE: POSITIVE BY SINGLE AGARWAL SARS-CoV TARGET. SARS-CoV-1 CANNOT BE EXCLUDED, BUT IS NOT CURRENTLY CIRCULATING IN [place]. Performed By: #### L 100.0070 #### ML - LABORATORY [address] [place] [address] SARS-CoV-2 (COVID-19) RNA NA A+probe Ql (Resp)on 12-31-2022 SARS-CoV-2 (COVID-19) RNA DOM+probe Ql (Unsp spec) Negative NEGATIVE [facility] URINALYSISon 12-31-2022 Bilirubin Ql (U) Negative Normal NEGATIVE [facility] Comment on above: Order Comment: Urine Specimen Source+ CLEAN CATCH Performed By: #### L 200.3000 ####ML - [id number] [place] [address] Color (U) YELLOW Normal YELLOW [facility] Comment on above: Order Comment: Urine Specimen Source+ CLEAN CATCH Performed By: #### L 200.3000 ####ML - [id number] [place] [address] Glucose Ql (U) Negative Normal NEGATIVE [facility] Comment on above: Order Comment: Urine Specimen Source+ CLEAN CATCH Performed By: #### L 200.3000 ####ML - [id number] [place] [address] Hemoglobin Ql (U) TRACE-INTACT Normal NEGATIVE [facility] Comment on above: Order Comment: Urine Specimen Source+ CLEAN CATCH Performed By: #### L 200.3000 ####ML - [id number] [place] [address] Leukocyte esterase Test strip Ql (U) Negative Normal NEGATIVE [facility] Comment on above: Order Comment: Urine Specimen Source+ CLEAN CATCH Performed By: #### L 200.3000 ####ML - [id number] [place] [address] Nitrite Ql (U) Negative Normal NEGATIVE [facility] Comment on above: Order Comment: Urine Specimen Source+ CLEAN CATCH Performed By: #### L 200.3000 ####ML - [id number] [place] [address] pH (U) 6.0 [pH] Normal 5.0-8.0 [facility] Comment on above: Order Comment: Urine Specimen Source+ CLEAN CATCH Performed By: #### L 200.3000 ####ML - [id number] [place] [address] Protein Ql (U) Negative Normal NEGATIVE [facility] Comment on above: Order Comment: Urine Specimen Source+ CLEAN CATCH Performed By: #### L 200.3000 ####ML - [address] [address] URINE APPEARANC CLEAR Normal CLEAR [facility] Comment on above: Order Comment: Urine Specimen Source+ CLEAN CATCH Performed By: #### L 200.3000 ####ML - [id number] [place] [address] URINE KETONE Negative Normal NEGATIVE [facility] Comment on above: Order Comment: Urine Specimen Source+ CLEAN CATCH Performed By: #### L 200.3000 ####ML - [id number] [place] [address] URINE SPECIFIC 1.020 Normal 1.001-1.035 [facility] Comment on above: Order Comment: Urine Specimen Source+ CLEAN CATCH Performed By: #### L 200.3000 ####ML - [id number] [place] [address] URINE UROBILINO 0.2 EU/DL Normal 0.2-1.0 [facility] Comment on above: Order Comment: Urine Specimen Source+ CLEAN CATCH Performed By: #### L 200.3000 ####ML - [id number] [place] [address] URINALYSIS, DIPSTICK ONLYon 12-31-2022 Appearance (U) CLEAR CLEAR [facility] Bilirubin, Urine Negative NEGATIVE [facility] Blood, Urine TRACE-INTACT NEGATIVE [facility] Color (U) YELLOW YELLOW [facility] Glucose Ql (U) Negative NEGATIVE MG/DL [facility] Ketones Ql (U) Negative NEGATIVE MG/DL [facility] Leukocytes Negative NEGATIVE [facility] Nitrites Urine Negative NEGATIVE [facility] pH (U) 6.0 [pH] 5.0 - 8.0 [facility] Protein.monoclonal (U) [Mass/Vol] Negative NEGATIVE MG/DL [facility] Specific [place], Ur 1.020 1.001 - 1.035 [facility] Urobilinogen, Urine 0.2 EU/DL 0.2 - 1. 0 EU/DL [facility] XR CHEST 1V FRONTALon 2022 [facility] hsTROP Ton 12-31-2022 hsTROP T 80.02 ng/L Critically high [address] [place] [address] Comment on above: Result Comment: When assessing risk for acute coronary syndromes: In patients undergoing blood draw greater than 2 hours from symptom onset, with history of very low to moderate risk and non-ischemic ECG, an initial hs-Troponin T less than 12 ng/L AND a 1 hour delta hs-Troponin T less than 3 ng/L should be considered very low risk for 30 day MACE. Performed By: #### L 301.0080 #### ML [facility] [address] [place] [address] hsTROP T 86.46 ng/L Critically high [address] [place] [address] Comment on above: Result Comment: When assessing risk for acute coronary syndromes: In patients undergoing blood draw greater than 2 hours from symptom onset, with history of very low to moderate risk and non-ischemic ECG, an initial hs-Troponin T less than 12 ng/L AND a 1 hour delta hs-Troponin T less than 3 ng/L should be considered very low risk for 30 day MACE. Performed By: #### L 301.0080, L100.0010, L100.0030 ####ML - [id number] [place] [address] [facility] Anion gap [Moles/Vol] 17.4 mmol/L Normal - [facility] Comment on above: Performed By: #### L 100.0070 #### ML - LABORATORY [address] [place] [address] Calcium [Mass/Vol] 8.0 mg/dL Low 8.8-10.2 [facility] Comment on above: Performed By: #### L 100.0070 #### ML - LABORATORY [address] [place] [address] Chloride [Moles/Vol] 102 mmol/L Normal 98-107 [facility] Comment on above: Performed By: #### L 100.0070 #### ML - LABORATORY [address] [place] [address] CO2 [Moles/Vol] 26 mmol/L Normal 22-29 [facility] Comment on above: Performed By: #### L 100.0070 #### ML [facility] [address] [place] [address] Creatinine [Mass/Vol] 4.01 mg/dL High 0.70-1.20 [facility] Comment on above: Performed By: #### L 100.0070 #### ML [facility] [address] [place] [address] 07294 eGFR if AFR JOSSELIN 18 [facility] Comment on above: Result Comment: eGFR >= 60 Indicates normal kidney function. * eGFR IS AN ESTIMATE * (AFR JOSSELIN = ) (non-AFR AM = NON-) MDRD calculation used in the eGFR should not be used to dose medications. For further limitations of the eGFR please refer to the Physician Website or the National Kidney Disease Education Program website (www.nkdep.nih.gov). Performed By: #### L 100.0070 #### ML - LABORATORY [address] [place] [address] 43301 eGFR nonAFR Josselin 15 [facility] Comment on above: Performed By: #### L 100.0070 #### ML [facility] [address] [place] [address] Glucose [Mass/Vol] 130 mg/dL High 82-115 [facility] Comment on above: Performed By: #### L 100.0070 #### ML - [facility] [address] [place] [address] Potassium [Moles/Vol] 4.4 mmol/L Normal 3.5-5.0 [facility] Comment on above: Performed By: #### L 100.0070 #### ML - LABORATORY [address] [place] [address] 82374 Sodium [Moles/Vol] 141 mmol/L Normal 135-145 [facility] Comment on above: Performed By: #### L 100.0070 #### ML - LABORATORY [address] [place] [address]40[address] Urea nitrogen [Mass/Vol] 86 mg/dL High 8-23 [facility] Comment on above: Performed By: #### L 100.0070 #### ML - LABORATORY [address] [place] [address] 18998 Basic metabolic 2000 panelon 12-25-2022 Anion gap [Moles/Vol] 17.4 mmol/L 15 - 2 2 mmol/L [facility] Calcium [Mass/Vol] 8.0 mg/dL Low 8.8 - 10. 2 mg/dL [facility] Chloride [Moles/Vol] 102 mmol/L 98 - 10 7 mmol/L [facility] CO2 [Moles/Vol] 26 mmol/L 22 - 29 mmol/L [facility] Creatinine [Mass/Vol] 4.01 mg/dL High 0.70 - 1.20 mg/dL [facility] eGFR-All Other Races 15 [facility] GFR/1.73 sq M.predicted among blacks MDRD (S/P/Bld) [Vol rate/Area] 18 mL/min/{1.73_m2} [facility] Glucose [Mass/Vol] 130 mg/dL High 82 - 115 mg/dL [facility] Potassium [Moles/Vol] 4.4 mmol/L 3.5 - 5.0 mmol/L [facility] Sodium [Moles/Vol] 141 mmol/L 135 - 145 mmol/L [facility] Urea nitrogen [Mass/Vol] 86 mg/dL High 8 - 23 mg/dL [facility] CBCon 12-25-2022 BASO# 0.00 x10(3) Normal 0.00-0.10 [facility] Comment on above: Performed By: #### L 100.0070 #### ML - LABORATORY [address] [place] [address]57[address] Basophils/100 WBC (Bld) 0.4 % Normal 0.0-1.0 [facility] Comment on above: Performed By: #### L 100.0070 #### ML - LABORATORY [address] [place] [address] 44145 EOS# 0.30 x10(3) Normal 0.00-0.54 [facility] Comment on above: Performed By: #### L 100.0070 #### ML - LABORATORY [address] [place] [address] 377[address] Eosinophils/100 WBC (Bld) 5.2 % High 0.5-4.9 [facility] Comment on above: Performed By: #### L 100.0070 #### ML - LABORATORY [address] [place] [address] Erythrocyte distribution width (RBC) [Ratio] 15.0 % Normal 12.7-15.3 [facility] Comment on above: Performed By: #### L 100.0070 #### ML - LABORATORY [address] [place] [address] 96515 Hematocrit (Bld) [Volume fraction] 36.6 % Low 42.0-51.0 [facility] Comment on above: Performed By: #### L 100.0070 #### ML - LABORATORY [address] [place] [address] Hemoglobin (Bld) [Mass/Vol] 12.1 g/dL Low 14.0-17.2 [facility] Comment on above: Performed By: #### L 100.0070 #### ML - LABORATORY [address] [place] [address] 71980 LYMPH# 0.90 x10(3) Low 1.00-3.50 [facility] Comment on above: Performed By: #### L 100.0070 #### ML - LABORATORY [address] [place] [address] 18839 Lymphocytes/100 WBC (Bld) 14.0 % Low 16.0-48.0 [facility] Comment on above: Performed By: #### L 100.0070 #### [facility] [address] [place] [address] 77604 MCH (RBC) [Entitic mass] 31.8 pg Normal 28.8-32.2 [facility] Comment on above: Performed By: #### L 100.0070 #### ML [facility] [address] [place] [address] 50668 MCHC (RBC) [Mass/Vol] 32.9 g/dL Low 33.0-36.0 [facility] Comment on above: Performed By: #### L 100.0070 #### ML [facility] [address] [place] [address] 22822 MCV (RBC) [Entitic vol] 96.6 fL High 80.0-94.0 [facility] Comment on above: Performed By: #### L 100.0070 #### [facility] [address] [place] [address] 59751 MONO# 1.20 x10(3) High 0.30-0.80 [facility] Comment on above: Performed By: #### L 100.0070 #### [facility] [address] [place] [address] 71351 Monocytes/100 WBC (Bld) 20.1 % High 4.3-11.2 [facility] Comment on above: Performed By: #### L 100.0070 #### [facility] [address] [place] [address] 43214 NEUT# 3.70 x10(3) Normal 1.40-6.50 [facility] Comment on above: Performed By: #### L 100.0070 #### [facility] [address] [place] [address] 57488 Neutrophils/100 WBC (Bld) 60.3 % Normal 45.0-73.0 [facility] Comment on above: Performed By: #### L 100.0070 #### [facility] [address] [place] [address] 97495 Platelet mean volume (Bld) [Entitic vol] 8.6 fL Normal 7.4-9.2 [facility] Comment on above: Performed By: #### L 100.0070 #### ML - LABORATORY [address] [place] [address] 46021 PLT 122 X10(3) Low 150-450 [facility] Comment on above: Performed By: #### L 100.0070 #### ML - LABORATORY [address] [place] [address] 81570 RBC 3.79 x10(6) Low 4.80-5.50 [facility] Comment on above: Performed By: #### L 100.0070 #### ML - LABORATORY [address] [place] [address] 36588 WBC 6.2 x10(3) Normal 4.5-10.0 [facility] Comment on above: Performed By: #### L 100.0070 #### ML - LABORATORY [address] [place] [address] 66351 CBC W Auto Differential pane l (Bld)on 12-25-2022 BASO ABS 0.00 x10(3) 0.00 - 0.10 x10(3) [facility] Basophils/100 WBC (Bld) 0.4 % 0.0 - 1.0 % [facility] EOS ABS 0.30 x10(3) 0.00 - 0.54 x10(3) [facility] Eosinophils/100 WBC (Bld) 5.2 % High 0.5 - 4.9 % [facility] Erythrocyte distribution width (RBC) [Ratio] 15.0 % 12.7 - 15.3 % [facility] Hematocrit (Bld) [Volume fraction] 36.6 % Low 42.0 - 51.0 % [facility] Hemoglobin (Bld) [Mass/Vol] 12.1 g/dL Low 14.0 - 17.2 g/dL [facility] LYMPH ABS 0.90 x10(3) Low 1.00 - 3.50 x10(3) [facility] Lymphocytes/100 WBC (Bld) 14.0 % Low 16.0 - 48.0 % [facility] MCH (RBC) [Entitic mass] 31.8 pg 28.8 - 32.2 pg [facility] MCHC (RBC) [Mass/Vol] 32.9 g/dL Low 33.0 - 36.0 g/dL [facility] MCV (RBC) [Entitic vol] 96.6 fL High 80.0 - 94.0 fl [facility] MONO ABS 1.20 x10(3) High 0.30 - 0.80 x10(3) [facility] Monocytes/100 WBC (Bld) 20.1 % High 4.3 - 11.2 % [facility] Neutrophil Ab 3.70 x10(3) 1.40 - 6.50 x10(3) [facility] Neutrophils/100 WBC (Bld) 60.3 % 45.0 - 73.0 % [facility] Platelet Count 122 X10(3) Low 150 - 450 X10(3) [facility] Platelet mean volume (Bld) [Entitic vol] 8.6 fL 7.4 - 9.2 fl [facility] RBC 3.79 x10(6) Low 4.80 - 5.50 x10(6) [facility] WBC 6.2 x10(3) 4.5 - 10.0 x10(3) [facility] EKGon 12-25-2022 Atrial Rate 78 BPM [facility] Calculated P [place] 66 degrees [facility] Calculated R [place] 70 degrees [facility] Calculated T [place] 24 degrees [facility] P-R Interval 154 ms [facility] QRS Duration 150 ms [facility] QT Interval 434 ms [facility] QTC Calculation (Bazett) 494 ms [facility] Ventricular Rate 78 BPM [facility] GLUCOSE FSon 12-25-2022 Glucose [Mass/Vol] 160 mg/dL High 70-110 [facility] Comment on above: Performed By: #### L 100.0070 ####ML - [id number] [place] [address] HEPATIC PANELon 12-25-2022 A:G RATIO 1.22 Normal 1.1-2.5 [facility] Comment on above: Performed By: #### L 100.0070 #### ML - LABORATORY [address] [place] [address] Albumin [Mass/Vol] 3.3 g/dL Low 3.5-5.2 [facility] Comment on above: Performed By: #### L 100.0070 #### ML - LABORATORY [address] [place] [address] 91834 ALK. PHOS 72 U/L Normal 40-130 [facility] Comment on above: Performed By: #### L 100.0070 #### ML - LABORATORY [address] [place] [address] 16657 ALT [Catalytic activity/Vol] 9 U/L Normal 5-41 [facility] Comment on above: Performed By: #### L 100.0070 #### ML - LABORATORY [address] [place] [address] 49860 AST [Catalytic activity/Vol] 21 U/L Normal 5-40 [facility] Comment on above: Performed By: #### L 100.0070 #### ML - LABORATORY [address] [place] [address] 75809 Bilirubin [Mass/Vol] 0.5 mg/dL Normal 0.2-1.2 [facility] Comment on above: Performed By: #### L 100.0070 #### ML - LABORATORY [address] [place] [address] 35940 DIRECT BILIRUBI <0.2 Normal 0.0-0.3 [facility] Comment on above: Performed By: #### L 100.0070 #### ML - LABORATORY [address] [place] [address] 83221 Globulin (S) [Mass/Vol] 2.7 g/dL Normal 1.5-4.5 [facility] Comment on above: Performed By: #### L 100.0070 #### ML - LABORATORY [address] [place] [address] 34353 Protein [Mass/Vol] 6.0 g/dL Low 6.4-8.3 [facility] Comment on above: Performed By: #### L 100.0070 #### ML - LABORATORY [address] [place] [address] 21597 Hepatic function 2000 panelo n 12-25-2022 Albumin [Mass/Vol] 3.3 g/dL Low 3.5 - 5.2 g/dL [facility] Albumin/Globulin [Mass ratio] 1.22 {ratio} 1.1 - 2.5 [facility] ALP [Catalytic activity/Vol] 72 U/L 40 - 130 U/L [facility] ALT [Catalytic activity/Vol] 9 U/L 5 - 41 U/L [facility] AST [Catalytic activity/Vol] 21 U/L 5 - 40 U/L [facility] Bilirubin [Mass/Vol] 0.5 mg/dL 0.2 - 1 .2 mg/dL [facility] Direct Bilirubin <0.2 0.0 - 0.3 mg/dL [facility] Globulin (S) [Mass/Vol] 2.7 g/dL 1.5 - 4.5 g/dL [facility] Protein [Mass/Vol] 6.0 g/dL Low 6.4 - 8.3 g/dL [facility] BMPon 12-24-2022 Anion gap [Moles/Vol] 17.6 mmol/L Normal 15-22 [facility] Comment on above: Performed By: #### L 301.0460 #### ML - LABORATORY [address] [place] [address] 96386 Calcium [Mass/Vol] 8.0 mg/dL Low 8.8-10.2 [facility] Comment on above: Performed By: #### L 301.0460 #### ML - LABORATORY [address] [place] [address] 46776 Chloride [Moles/Vol] 101 mmol/L Normal 98-107 [facility] Comment on above: Performed By: #### L 301.0460 #### ML - LABORATORY [address] [place] [address] 46892 CO2 [Moles/Vol] 26 mmol/L Normal 22-29 [facility] Comment on above: Performed By: #### L 301.0460 #### ML - LABORATORY [address] [place] [address] 83496 Creatinine [Mass/Vol] 4.00 mg/dL High 0.70-1.20 [facility] Comment on above: Performed By: #### L 301.0460 #### ML - LABORATORY [address] [place] [address] 41210 eGFR if AFR JOSSELIN 18 Normal [facility] Comment on above: Result Comment: eGFR >= 60 Indicates normal kidney function. * eGFR IS AN ESTIMATE * (AFR JOSSELIN = ) (non-AFR AM = NON-) MDRD calculation used in the eGFR should not be used to dose medications. For further limitations of the eGFR please refer to the Physician Website or the National Kidney Disease Education Program website (www.nkdep.nih.gov). Performed By: #### L 301.0460 #### [facility] [address] [place] [address] 77062 eGFR nonAFR Josselin 15 Normal [facility] Comment on above: Performed By: #### L 301.0460 #### [facility] [address] [place] [address] 88290 Glucose [Mass/Vol] 155 mg/dL High 82-115 [facility] Comment on above: Performed By: #### L 301.0460 #### [facility] [address] [place] [address] 19441 Potassium [Moles/Vol] 4.6 mmol/L Normal 3.5-5.0 [facility] Comment on above: Performed By: #### L 301.0460 #### [facility] [address] [place] [address] 51216 Sodium [Moles/Vol] 140 mmol/L Normal 135-145 [facility] Comment on above: Performed By: #### L 301.0460 #### [facility] [address] [place] [address] 29548 Urea nitrogen [Mass/Vol] 79 mg/dL High 8-23 [facility] Comment on above: Performed By: #### L 301.0460 #### [facility] [address] [place] [address] 31155 Basic metabolic 2000 panelon 12-24-2022 Anion gap [Moles/Vol] 17.6 mmol/L 15 - 2 2 mmol/L [facility] Calcium [Mass/Vol] 8.0 mg/dL Low 8.8 - 10. 2 mg/dL [facility] Chloride [Moles/Vol] 101 mmol/L 98 - 10 7 mmol/L [facility] CO2 [Moles/Vol] 26 mmol/L 22 - 29 mmol/L [facility] Creatinine [Mass/Vol] 4.00 mg/dL High 0.70 - 1.20 mg/dL [facility] eGFR-All Other Races [address] [facility] GFR/1.73 sq M.predicted among blacks MDRD (S/P/Bld) [Vol rate/Area] 18 mL/min/{1.73_m2} [facility] Glucose [Mass/Vol] 155 mg/dL High 82 - 115 mg/dL [facility] Potassium [Moles/Vol] 4.6 mmol/L 3.5 - 5.0 mmol/L [facility] Sodium [Moles/Vol] 140 mmol/L 135 - 145 mmol/L [facility] Urea nitrogen [Mass/Vol] 79 mg/dL High 8 - 23 mg/dL [facility] CBCon 12-24-2022 BASO# 0.00 x10(3) Normal 0.00-0.10 [facility] Comment on above: Performed By: #### L 301.0460 #### [facility] [address] [place] [address] 34909 Basophils/100 WBC (Bld) 0.7 % Normal 0.0-1.0 [facility] Comment on above: Performed By: #### L 301.0460 #### [facility] [address] [place] [address] 95494 EOS# 0.30 x10(3) Normal 0.00-0.54 [facility] Comment on above: Performed By: #### L 301.0460 #### [facility] [address] [place] [address] 74064 Eosinophils/100 WBC (Bld) 5.1 % High 0.5-4.9 [facility] Comment on above: Performed By: #### L 301.0460 #### [facility] [address] [place] [address] 00728 Erythrocyte distribution width (RBC) [Ratio] 14.9 % Normal 12.7-15.3 [facility] Comment on above: Performed By: #### L 301.0460 #### [facility] [address] [place] [address] 97614 Hematocrit (Bld) [Volume fraction] 36.1 % Low 42.0-51.0 [facility] Comment on above: Performed By: #### L 301.0460 #### [facility] [address] [place] [address] 81198 Hemoglobin (Bld) [Mass/Vol] 12.1 g/dL Low 14.0-17.2 [facility] Comment on above: Performed By: #### L 301.0460 #### [facility] [address] [place] [address] 60647 LYMPH# 0.70 x10(3) Low 1.00-3.50 [facility] Comment on above: Performed By: #### L 301.0460 #### [facility] [address] [place] [address] 75962 Lymphocytes/100 WBC (Bld) 10.3 % Low 16.0-48.0 [facility] Comment on above: Performed By: #### L 301.0460 #### [facility] [address] [place] [address] 02965 MCH (RBC) [Entitic mass] 32.6 pg High 28.8-32.2 [facility] Comment on above: Performed By: #### L 301.0460 #### [facility] [address] [place] [address] 55807 MCHC (RBC) [Mass/Vol] 33.5 g/dL Normal 33.0-36.0 [facility] Comment on above: Performed By: #### L 301.0460 #### [facility] [address] [place] [address] 14835 MCV (RBC) [Entitic vol] 97.2 fL High 80.0-94.0 [facility] Comment on above: Performed By: #### L 301.0460 #### [facility] [address] [place] [address] 47069 MONO# 1.20 x10(3) High 0.30-0.80 [facility] Comment on above: Performed By: #### L 301.0460 #### [facility] [address] [place] [address] 38260 Monocytes/100 WBC (Bld) 17.8 % High 4.3-11.2 [facility] Comment on above: Performed By: #### L 301.0460 #### [facility] [address] [place] [address] 44055 NEUT# 4.30 x10(3) Normal 1.40-6.50 [facility] Comment on above: Performed By: #### L 301.0460 #### [facility] [address] [place] [address] 34374 Neutrophils/100 WBC (Bld) 66.1 % Normal 45.0-73.0 [facility] Comment on above: Performed By: #### L 301.0460 #### [facility] [address] [place] [address] 15808 Platelet mean volume (Bld) [Entitic vol] 8.5 fL Normal 7.4-9.2 [facility] Comment on above: Performed By: #### L 301.0460 #### [facility] [address] [place] [address] 75807 PLT 117 X10(3) Low 150-450 [facility] Comment on above: Performed By: #### L 301.0460 #### [facility] [address] [place] [address] 13959 RBC 3.72 x10(6) Low 4.80-5.50 [facility] Comment on above: Performed By: #### L 301.0460 #### [facility] [address] [place] [address] 73446 WBC 6.5 x10(3) Normal 4.5-10.0 [facility] Comment on above: Performed By: #### L 301.0460 #### [facility] [address] [place] [address] 85849 CBC W Auto Differential pane l (Bld)on 12-24-2022 BASO ABS 0.00 x10(3) 0.00 - 0.10 x10(3) [facility] Basophils/100 WBC (Bld) 0.7 % 0.0 - 1.0 % [facility] EOS ABS 0.30 x10(3) 0.00 - 0.54 x10(3) [facility] Eosinophils/100 WBC (Bld) 5.1 % High 0.5 - 4.9 % [facility] Erythrocyte distribution width (RBC) [Ratio] 14.9 % 12.7 - 15.3 % [facility] Hematocrit (Bld) [Volume fraction] 36.1 % Low 42.0 - 51.0 % [facility] Hemoglobin (Bld) [Mass/Vol] 12.1 g/dL Low 14.0 - 17.2 g/dL [facility] LYMPH ABS 0.70 x10(3) Low 1.00 - 3.50 x10(3) [facility] Lymphocytes/100 WBC (Bld) 10.3 % Low 16.0 - 48.0 % [facility] MCH (RBC) [Entitic mass] 32.6 pg High 28.8 - 32.2 pg [facility] MCHC (RBC) [Mass/Vol] 33.5 g/dL 33.0 - 36.0 g/dL [facility] MCV (RBC) [Entitic vol] 97.2 fL High 80.0 - 94.0 fl [facility] MONO ABS 1.20 x10(3) High 0.30 - 0.80 x10(3) [facility] Monocytes/100 WBC (Bld) 17.8 % High 4.3 - 11.2 % [facility] Neutrophil Ab 4.30 x10(3) 1.40 - 6.50 x10(3) [facility] Neutrophils/100 WBC (Bld) 66.1 % 45.0 - 73.0 % [facility] Platelet Count 117 X10(3) Low 150 - 450 X10(3) [facility] Platelet mean volume (Bld) [Entitic vol] 8.5 fL 7.4 - 9.2 fl [facility] RBC 3.72 x10(6) Low 4.80 - 5.50 x10(6) [facility] WBC 6.5 x10(3) 4.5 - 10.0 x10(3) [facility] GLUCOSE FSon 12-24-2022 Glucose [Mass/Vol] 115 mg/dL High 70-110 [facility] Comment on above: Performed By: #### L 301.0460 #### [facility] [address] [place] [address] 71482 Glucose [Mass/Vol] 189 mg/dL High 70-110 [facility] Comment on above: Performed By: #### L 100.0070 ####[facility] - [id number] [place] [address] 50989 Glucose post fast [Mass/Vol] on 12-24-2022 Glucose [Mass/Vol] 160 mg/dL High 70 - 110 mg/dL [facility] Glucose [Mass/Vol] 115 mg/dL High 70 - 110 mg/dL [facility] Glucose [Mass/Vol] 189 mg/dL High 70 - 110 mg/dL [facility] HEPATIC PANELon 12-24-2022 A:G RATIO 1.22 Normal 1.1-2.5 [facility] Comment on above: Performed By: #### L 301.0460 #### [facility] [address] [place] [address] 13629 Albumin [Mass/Vol] 3.3 g/dL Low 3.5-5.2 [facility] Comment on above: Performed By: #### L 301.0460 #### [facility] [address] [place] [address] 10497 ALK. PHOS 83 U/L Normal 40-130 [facility] Comment on above: Performed By: #### L 301.0460 #### [facility] [address] [place] [address] 49642 ALT [Catalytic activity/Vol] 10 U/L Normal 5-41 [facility] Comment on above: Performed By: #### L 301.0460 #### [facility] [address] [place] [address] 84378 AST [Catalytic activity/Vol] 21 U/L Normal 5-40 [facility] Comment on above: Performed By: #### L 301.0460 #### [facility] [address] [place] [address] 80310 Bilirubin [Mass/Vol] 0.5 mg/dL Normal 0.2-1.2 [facility] Comment on above: Performed By: #### L 301.0460 #### [facility] [address] [place] [address] 68442 DIRECT BILIRUBI <0.2 Normal 0.0-0.3 [facility] Comment on above: Performed By: #### L 301.0460 #### [facility] [address] [place] [address] 12546 Globulin (S) [Mass/Vol] 2.7 g/dL Normal 1.5-4.5 [facility] Comment on above: Performed By: #### L 301.0460 #### [facility] [address] [place] [address] 86422 Protein [Mass/Vol] 6.0 g/dL Low 6.4-8.3 [facility] Comment on above: Performed By: #### L 301.0460 #### [facility] [address] [place] [address] 52836 Hepatic function 2000 panelo n 12-24-2022 Albumin [Mass/Vol] 3.3 g/dL Low 3.5 - 5.2 g/dL [facility] Albumin/Globulin [Mass ratio] 1.22 {ratio} 1.1 - 2.5 [facility] ALP [Catalytic activity/Vol] 83 U/L 40 - 130 U/[facility] ALT [Catalytic activity/Vol] 10 U/L 5 - 41 U/[facility] AST [Catalytic activity/Vol] 21 U/L 5 - 40 U/L [facility] Bilirubin [Mass/Vol] 0.5 mg/dL 0.2 - 1 .2 mg/dL [facility] Direct Bilirubin <0.2 0.0 - 0.3 mg/dL [facility] Globulin (S) [Mass/Vol] 2.7 g/dL 1.5 - 4.5 g/dL [facility] Protein [Mass/Vol] 6.0 g/dL Low 6.4 - 8.3 g/dL [facility] CBCon 12-23-2022 BASO# 0.00 x10(3) Normal 0.00-0.10 [facility] Comment on above: Performed By: #### L 301.0080 #### [facility] [address] [place] [address] [place] [address] Basophils/100 WBC (Bld) 0.6 % Normal 0.0-1.0 [facility] Comment on above: Performed By: #### L 301.0080 #### [facility] [address] [place] [address] 83285 EOS# 0.20 x10(3) Normal 0.00-0.54 [facility] Comment on above: Performed By: #### L 301.0080 #### [facility] [address] [place] [address] 62871 Eosinophils/100 WBC (Bld) 4.3 % Normal 0.5-4.9 [facility] Comment on above: Performed By: #### L 301.0080 #### [facility] [address] [place] [address] 58788 Erythrocyte distribution width (RBC) [Ratio] 15.5 % High 12.7-15.3 [facility] Comment on above: Performed By: #### L 301.0080 #### [facility] [address] [place] [address] 12623 Hematocrit (Bld) [Volume fraction] 36.5 % Low 42.0-51.0 [facility] Comment on above: Performed By: #### L 301.0080 #### [facility] [address] [place] [address] 83038 Hemoglobin (Bld) [Mass/Vol] 11.9 g/dL Low 14.0-17.2 [facility] Comment on above: Performed By: #### L 301.0080 #### [facility] [address] [place] [address] 66805 LYMPH# 0.70 x10(3) Low 1.00-3.50 [facility] Comment on above: Performed By: #### L 301.0080 #### [facility] [address] [place] [address] 38199 Lymphocytes/100 WBC (Bld) 13.2 % Low 16.0-48.0 [facility] Comment on above: Performed By: #### L 301.0080 #### [facility] [address] [place] [address] 58205 MCH (RBC) [Entitic mass] 32.3 pg High 28.8-32.2 [facility] Comment on above: Performed By: #### L 301.0080 #### [facility] [address] [place] [address] 20893 MCHC (RBC) [Mass/Vol] 32.7 g/dL Low 33.0-36.0 [facility] Comment on above: Performed By: #### L 301.0080 #### [facility] [address] [place] [address] 52529 MCV (RBC) [Entitic vol] 98.7 fL High 80.0-94.0 [facility] Comment on above: Performed By: #### L 301.0080 #### [facility] [address] [place] [address] 85261 MONO# 1.00 x10(3) High 0.30-0.80 [facility] Comment on above: Performed By: #### L 301.0080 #### [facility] [address] [place] [address] 39934 Monocytes/100 WBC (Bld) 17.9 % High 4.3-11.2 [facility] Comment on above: Performed By: #### L 301.0080 #### [facility] [address] [place] [address] 11226 NEUT# 3.60 x10(3) Normal 1.40-6.50 [facility] Comment on above: Performed By: #### L 301.0080 #### [facility] [address] [place] [address] 13349 Neutrophils/100 WBC (Bld) 64.0 % Normal 45.0-73.0 [facility] Comment on above: Performed By: #### L 301.0080 #### [facility] [address] [place] [address] 22904 Platelet mean volume (Bld) [Entitic vol] 9.0 fL Normal 7.4-9.2 [facility] Comment on above: Performed By: #### L 301.0080 #### [facility] [address] [place] [address] 06885 PLT 112 X10(3) Low 150-450 [facility] Comment on above: Performed By: #### L 301.0080 #### [facility] [address] [place] [address] 57122 RBC 3.70 x10(6) Low 4.80-5.50 [facility] Comment on above: Performed By: #### L 301.0080 #### [facility] [address] [place] [address] 36647 WBC 5.6 x10(3) Normal 4.5-10.0 [facility] Comment on above: Performed By: #### L 301.0080 #### [facility] [address] [place] [address] 80505 CBC W Auto Differential pane l (Bld)on 12-23-2022 BASO ABS 0.00 x10(3) 0.00 - 0.10 x10(3) [facility] Basophils/100 WBC (Bld) 0.6 % 0.0 - 1.0 % [facility] EOS ABS 0.20 x10(3) 0.00 - 0.54 x10(3) [facility] Eosinophils/100 WBC (Bld) 4.3 % 0.5 - 4.9 % [facility] Erythrocyte distribution width (RBC) [Ratio] 15.5 % High 12.7 - 15.3 % [facility] Hematocrit (Bld) [Volume fraction] 36.5 % Low 42.0 - 51.0 % [facility] Hemoglobin (Bld) [Mass/Vol] 11.9 g/dL Low 14.0 - 17.2 g/dL [facility] LYMPH ABS 0.70 x10(3) Low 1.00 - 3.50 x10(3) [facility] Lymphocytes/100 WBC (Bld) 13.2 % Low 16.0 - 48.0 % [facility] MCH (RBC) [Entitic mass] 32.3 pg High 28.8 - 32.2 pg [facility] MCHC (RBC) [Mass/Vol] 32.7 g/dL Low 33.0 - 36.0 g/dL [facility] MCV (RBC) [Entitic vol] 98.7 fL High 80.0 - 94.0 fl [facility] MONO ABS 1.00 x10(3) High 0.30 - 0.80 x10(3) [facility] Monocytes/100 WBC (Bld) 17.9 % High 4.3 - 11.2 % [facility] Neutrophil Ab 3.60 x10(3) 1.40 - 6.50 x10(3) [facility] Neutrophils/100 WBC (Bld) 64.0 % 45.0 - 73.0 % [facility] Platelet Count 112 X10(3) Low 150 - 450 X10(3) [facility] Platelet mean volume (Bld) [Entitic vol] 9.0 fL 7.4 - 9.2 fl [facility] RBC 3.70 x10(6) Low 4.80 - 5.50 x10(6) [facility] WBC 5.6 x10(3) 4.5 - 10.0 x10(3) [facility] CMPon 12-23-2022 A:G RATIO 1.14 Normal 1.1-2.5 [facility] Comment on above: Performed By: #### L 301.0460 #### [facility] [address] [place] [address] 00056 Albumin [Mass/Vol] 3.2 g/dL Low 3.5-5.2 [facility] Comment on above: Performed By: #### L 301.0460 #### [facility] [address] [place] [address] 56120 ALK. PHOS 79 U/L Normal 40-130 [facility] Comment on above: Performed By: #### L 301.0460 #### [facility] [address] [place] [address] 46415 ALT [Catalytic activity/Vol] 9 U/L Normal 5-41 [facility] Comment on above: Performed By: #### L 301.0460 #### [facility] [address] [place] [address] 14103 Anion gap [Moles/Vol] 18.9 mmol/L Normal 15-22 [facility] Comment on above: Performed By: #### L 301.0460 #### [facility] [address] [place] [address] 77511 AST [Catalytic activity/Vol] 23 U/L Normal 5-40 [facility] Comment on above: Performed By: #### L 301.0460 #### [facility] [address] [place] [address] 56677 Bilirubin [Mass/Vol] 0.3 mg/dL Normal 0.2-1.2 [facility] Comment on above: Performed By: #### L 301.0460 #### [facility] [address] [place] [address] 01140 Calcium [Mass/Vol] 8.0 mg/dL Low 8.8-10.2 [facility] Comment on above: Performed By: #### L 301.0460 #### [facility] [address] [place] [address] 84518 Chloride [Moles/Vol] 103 mmol/L Normal 98-107 [facility] Comment on above: Performed By: #### L 301.0460 #### [facility] [address] [place] [address] 03082 CO2 [Moles/Vol] 23 mmol/L Normal 22-29 [facility] Comment on above: Performed By: #### L 301.0460 #### [facility] [address] [place] [address] 38910 Creatinine [Mass/Vol] 3.96 mg/dL High 0.70-1.20 [facility] Comment on above: Performed By: #### L 301.0460 #### [facility] [address] [place] [address] 83451 eGFR if AFR JOSSELIN 18 Normal [facility] Comment on above: Result Comment: eGFR >= 60 Indicates normal kidney function. * eGFR IS AN ESTIMATE * (AFR JOSSELIN = ) (non-AFR AM = NON-) MDRD calculation used in the eGFR should not be used to dose medications. For further limitations of the eGFR please refer to the Physician Website or the National Kidney Disease Education Program website (www.nkdep.nih.gov). Performed By: #### L 301.0460 #### [facility] [address] [place] [address] 79293 eGFR nonAFR Josselin 15 Normal [facility] Comment on above: Performed By: #### L 301.0460 #### [facility] [address] [place] [address] 58311 Globulin (S) [Mass/Vol] 2.8 g/dL Normal 1.5-4.5 [facility] Comment on above: Performed By: #### L 301.0460 #### [facility] [address] [place] [address] 79944 Glucose [Mass/Vol] 136 mg/dL High 82-115 [facility] Comment on above: Performed By: #### L 301.0460 #### [facility] [address] [place] [address] 23667 Potassium [Moles/Vol] 4.9 mmol/L Normal 3.5-5.0 [facility] Comment on above: Performed By: #### L 301.0460 #### ML [facility] [address] [place] [address] 51589 Protein [Mass/Vol] 6.0 g/dL Abnormal 6.4-8.3 [facility] Comment on above: Result Comment: De lta check (#) indicates a significant change in this laboratory value. It needs clinical correlation with patient situation or treatment. If the change in this test does not match your clinical situation or therapy, you may wish to re-test to verify the result. Performed By: #### L 301.0460 #### [facility] [address] [place] [address] 73741 Sodium [Moles/Vol] 140 mmol/L Normal 135-145 [facility] Comment on above: Performed By: #### L 301.0460 #### [facility] [address] [place] [address] 66437 Urea nitrogen [Mass/Vol] 65 mg/dL High 8-23 [facility] Comment on above: Performed By: #### L 301.0460 #### [facility] [address] [place] [address] CT ABD/PEL WO CONTRASTon CT ABD/PEL WO CONTRAST [facility] [address] [place], [place] [address] Name: PETE CONLEY Phys: LAUREN HUTCHINSON M.D. : 46 Age: 72 Sex: M Acct: [id number] Loc: [facility] Exam Date: 12/23/22 Status: ADM IN Radiology No.: Unit Number: [id number] Exam # Type/Exam [id number] CT / CT ABD/PEL WO CONTRAST EXAMINATION: CT OF THE ABDOMEN AND PELVIS WITHOUT CONTRAST12/23/2022 9:32 am TECHNIQUE: Serial axial images were performed without contrast. Axial, sagittal and coronal reformatted images were reviewed. DICOM images are available. Low dose CT acquisition technique included one of the following options: 1. Automated exposure control, 2. Adjustment of the MA and/or KV according to patient size, or 3. Use of iterative reconstruction. COMPARISON: Renal ultrasound 12/21/2022 HISTORY: ORDERING SYSTEM PROVIDED HISTORY: TECHNOLOGIST PROVIDED HISTORY: Reason for Exam: Bladder mass ?? FINDINGS: Limited examination by the absence of intravenous contrast Support devices: None Lower thorax: Small bilateral, right larger than left pleural effusions with associated compressive atelectasis. Medial right middle lobe subsegmental atelectasis. Left lower lobe airspace disease. Coronary artery atherosclerotic calcifications. Solid organs: The liver, spleen, pancreas, and adrenal glands are unremarkable. Biliary system: No evidence of biliary ductal dilatation. Cholelithiasis. Nondistended gallbladder. Genitourinary: Extensive intrarenal arterial calcifications. Nonobstructing 6 mm calculus within a left mid pole moiety. 7 mm calculus within the right renal cortex. No evidence of hydronephrosis. Enlarged prostate with localized mass effect upon the urinary bladder base. Gastrointestinal: Moderate retained gastric debris. Nondistended small bowel without evidence of an obstructive pattern. Retained fecal matter throughout the colon. Scattered colonic diverticula without diverticulitis.. Appendix: Within normal limits without adjacent fat stranding. Peritoneum: No ascites, pneumoperitoneum, or abscess. Pelvic organs: Enlarged prostate measuring 5.1 x 7.3 cm with mass effect upon the base of the urinary bladder. The questioned urinary bladder mass on ultrasound appears to represent the enlarged prostate. Consider cystogram for further evaluation. Lymph nodes: No adenopathy by size criteria. Vascular structures: No evidence of an abdominal aortic aneurysm. Atherosclerotic calcifications of the aorta and bilateral iliac arteries. Osseous and soft tissue structures: Bone windows demonstrate no suspicious osteolytic or osteoblastic lesions. No fracture identified. Degenerative changes of the bilateral sacroiliac joints. Moderately severe degenerative narrowing of the bilateral hips. Widespread spondylotic changes throughout the thoracic and lumbar spine. 5 mm degenerative anterolisthesis of L4 on L5. IMPRESSION: 1. Enlarged prostate gland with mass effect upon the urinary bladder base. Definite urinary bladder mass is not seen and ultrasound findings thought to represent an enlarged prostate. Consider further evaluation with cystogram. 2. Small bilateral pleural effusions with associated compressive atelectasis. Left lower lobe atelectasis or pneumonia. 3. Nonobstructing bilateral renal calculi. 4. Cholelithiasis without evidence of cholecystitis. Electronically signed By Bekah Kamara MD 12/23/2022 9:51:18 AM EST Workstation ID : [id number] < > Reported By: BEKAH KAMARA M.D. Signed In Fluency By: BEKAH KAMARA M.D. << Signature on File>> Reported By: BEKAH KAMARA M.D. Signed By: BEKAH KAMARA M.D. Tests performed at: [address] [address] [address] [facility] [address] ABD/PEL WO IVCONon 2022 [facility] Comprehensive metabolic 2000 panelon 12-23-2022 Albumin [Mass/Vol] 3.2 g/dL Low 3.5 - 5.2 g/dL [facility] Albumin/Globulin [Mass ratio] 1.14 {ratio} 1.1 - 2.5 [facility] ALP [Catalytic activity/Vol] 79 U/L 40 - 130 U/L [facility] ALT [Catalytic activity/Vol] 9 U/L 5 - 41 U/L [facility] Anion gap [Moles/Vol] 18.9 mmol/L 15 - 2 2 mmol/[facility] AST [Catalytic activity/Vol] 23 U/L 5 - 40 U/L [facility] Bilirubin [Mass/Vol] 0.3 mg/dL 0.2 - 1 .2 mg/dL [facility] Calcium [Mass/Vol] 8.0 mg/dL Low 8.8 - 10. 2 mg/dL [facility] Chloride [Moles/Vol] 103 mmol/L 98 - 10 7 mmol/L [facility] CO2 [Moles/Vol] 23 mmol/L 22 - 29 mmol/L [facility] Creatinine [Mass/Vol] 3.96 mg/dL High 0.70 - 1.20 mg/dL [facility] eGFR-All Other Races [address] [facility] GFR/1.73 sq M.predicted among blacks MDRD (S/P/Bld) [Vol rate/Area] 18 mL/min/{1.73_m2} [facility] Globulin (S) [Mass/Vol] 2.8 g/dL 1.5 - 4.5 g/dL [facility] Glucose [Mass/Vol] 136 mg/dL High 82 - 115 mg/dL [facility] Potassium [Moles/Vol] 4.9 mmol/L 3.5 - 5.0 mmol/L [facility] Protein [Mass/Vol] 6.0 g/dL Low 6.4 - 8.3 g/dL [facility] Sodium [Moles/Vol] 140 mmol/L 135 - 145 mmol/L [facility] Urea nitrogen [Mass/Vol] 65 mg/dL High 8 - 23 mg/dL [facility] ELECTROCARDIOGRAMon 12-24-19 [address] [facility] [address] HEALTH INFORMATION MANAGEMENT ELECTROCARDIOGRAM REPORT Patient: PETE CONLEY Ordering: TRISTAN ALEXANDER D.O. [id number] [age] M Exam Date: 12/23/22 Report #: [id number] Status: ADM IN [facility] Test Reason : Blood Pressure : / mmHG Vent. Rate : 078 BPM Atrial Rate : 078 BPM P-R Int : 154 ms QRS Dur : 150 ms QT Int : 434 ms P-R-T Axes : 066 070 024 degrees QTc Int : 494 ms Normal sinus rhythm Right bundle branch block When compared with ECG of 21-DEC-2022 15:07, No significant change was found Confirmed by MANSOOR GUTIERRES MD ([id number]) on 12/25/2022 5:11:05 PM Referred By: HARISH BURROWS Confirmed By:MANSOOR GUTIERRES MD Signed in MUSE 12/25/22 1713 MANSOOR GUTIERRES M.D. cc: << Signature on File>> Reported By: MANSOOR GUTIERRES M.D. Signed By: MANSOOR GUTIERRES M.D. Tests performed at: [address] [address] Normal [facility] GLUCOSE FSon 12-23-2022 Glucose [Mass/Vol] 149 mg/dL High 70-110 [facility] Comment on above: Performed By: #### L 301.0460 #### ML - LABORATORY [address] [place] [address] Glucose [Mass/Vol] 121 mg/dL High 70-110 [facility] Comment on above: Performed By: #### L 100.0070 ####ML - [id number] [place] [address] Glucose [Mass/Vol] 222 mg/dL High 70-110 [facility] Comment on above: Performed By: #### L 301.0460 #### ML - LABORATORY [address] [place] [address] Glucose post fast [Mass/Vol] on 12-23-2022 Glucose [Mass/Vol] 149 mg/dL High 70 - 110 mg/dL [facility] Glucose [Mass/Vol] 121 mg/dL High 70 - 110 mg/dL [facility] Glucose [Mass/Vol] 222 mg/dL High 70 - 110 mg/dL [facility] MAGNESIUMon 12-23-2022 Magnesium [Mass/Vol] 1.5 mg/dL Low 1.6-2.4 [facility] Comment on above: Performed By: #### L 301.0460 #### ML - LABORATORY [address] [place] [address] Magnesium [Mass/Vol]on 12-23 Magnesium.plasma/Magne sium.RBC (Bld) [Molar ratio] 1.5 mg/dL Low 1.6 - 2.4 mg/dL [facility] PTHon 12-23-2022 PTH 117.8 pg/mL High 15-65 [facility] Comment on above: Performed By: #### L 301.0460 #### ML - [facility] [address] [place] [address] Parathyrin.intact [Mass/Vol] on 12-23-2022 PTH 117.8 pg/mL High 15 - 65 pg/mL [facility] ABDOMEN (KUB)1 VIEWon 2022 ABDOMEN (KUB)[address] [facility] [place] [address] Name: PETE CONLEY Phys: MELONIE DOUGLASS M.D. : 48 Age: 72 Sex: M Acct: [id number] Loc: [facility] Exam Date: 12/22/22 Status: ADM IN Radiology No.: Unit Number: [id number] Exam # Type/Exam [id number] RAD / ABDOMEN (KUB)1 VIEW EXAMINATION: ONE SUPINE XRAY VIEW(S) OF THE ABDOMEN 12/22/2022 5:57 am COMPARISON: Chest x-ray on 12/21/2022 HISTORY: ORDERING SYSTEM PROVIDED HISTORY: TECHNOLOGIST PROVIDED HISTORY: Reason for Exam: Lower abdominal pain FINDINGS: Bowel gas pattern is nonobstructive. No dilated loops of intestine are present. There is no abnormal gas collection detected in the abdomen. No pathologic calcifications are visible. There is no evidence of organomegaly. The skeletal structures show mild degenerative findings in the lumbar spine and both hips. IMPRESSION: No sign of acute abdominal abnormality. Electronically signed By Fuentes Gusman MD 12/22/2022 6:37:29 AM EST Workstation ID : [id number] < > Reported By: FUENTES GUSMAN M.D. Signed In Fluency By: FUENTES GUSMAN M.D. << Signature on File>> Reported By: FUENTES GUSMAN M.D. Signed By: FUENTES GUSMAN M.D. Tests performed at: [place] [address] [facility] BMPon 12-22-2022 Anion gap [Moles/Vol] 14.4 mmol/L Low 15-22 [facility] Comment on above: Performed By: #### L 301.0460 #### ML - LABORATORY [address] [place] [address] Calcium [Mass/Vol] 8.3 mg/dL Low 8.8-10.2 [facility] Comment on above: Performed By: #### L 301.0460 #### ML - LABORATORY [address] [place] [address] Chloride [Moles/Vol] 106 mmol/L Normal 98-107 [facility] Comment on above: Performed By: #### L 301.0460 #### [facility] [address] [place] [address] CO2 [Moles/Vol] 23 mmol/L Normal 22-29 [facility] Comment on above: Performed By: #### L 301.0460 #### ML - LABORATORY [address] [place] [address] Creatinine [Mass/Vol] 3.47 mg/dL High 0.70-1.20 [facility] Comment on above: Performed By: #### L 301.0460 #### [facility] [address] [place] [address] 29565 eGFR if AFR JOSSELIN 21 [facility] Comment on above: Result Comment: eGFR >= 60 Indicates normal kidney function. * eGFR IS AN ESTIMATE * (AFR JOSSELIN = ) (non-AFR AM = NON-) MDRD calculation used in the eGFR should not be used to dose medications. For further limitations of the eGFR please refer to the Physician Website or the National Kidney Disease Education Program website (www.nkdep.nih.gov). Performed By: #### L 301.0460 #### ML - LABORATORY [address] [place] [address] eGFR nonAFR Josselin 17 Normal [facility] Comment on above: Performed By: #### L 301.0460 #### ML - LABORATORY [address] [place] [address]365 Glucose [Mass/Vol] 96 mg/dL Normal 82-115 [facility] Comment on above: Performed By: #### L 301.0460 #### ML - LABORATORY [address] [place] [address] Potassium [Moles/Vol] 5.4 mmol/L High 3.5-5.0 [facility] Comment on above: Performed By: #### L 301.0460 #### ML - LABORATORY [address] [place] [address] Sodium [Moles/Vol] 138 mmol/L Normal 135-145 [facility] Comment on above: Performed By: #### L 301.0460 #### ML - LABORATORY [address] [place] [address] Urea nitrogen [Mass/Vol] 48 mg/dL High 8-23 [facility] Comment on above: Performed By: #### L 301.0460 #### ML - LABORATORY [address] [place] [address] Basic metabolic 2000 panelon 12-22-2022 Anion gap [Moles/Vol] 14.4 mmol/L Low 15 - 2 2 mmol/L [facility] Calcium [Mass/Vol] 8.3 mg/dL Low 8.8 - 10. 2 mg/dL [facility] Chloride [Moles/Vol] 106 mmol/L 98 - 10 7 mmol/L [facility] CO2 [Moles/Vol] 23 mmol/L 22 - 29 mmol/L [facility] Creatinine [Mass/Vol] 3.47 mg/dL High 0.70 - 1.20 mg/dL [facility] eGFR-All Other Races 17 [facility] GFR/1.73 sq M.predicted among blacks MDRD (S/P/Bld) [Vol rate/Area] 21 mL/min/{1.73_m2} [facility] Glucose [Mass/Vol] 96 mg/dL 82 - 115 mg/dL [facility] Potassium [Moles/Vol] 5.4 mmol/L High 3.5 - 5.0 mmol/L [facility] Sodium [Moles/Vol] 138 mmol/L 135 - 145 mmol/L [facility] Urea nitrogen [Mass/Vol] 48 mg/dL High 8 - 23 mg/dL [facility] CBCon 12-22-2022 BASO# 0.00 x10(3) Normal 0.00-0.10 [facility] Comment on above: Performed By: #### L 301.0080 #### ML - LABORATORY [address] [place] [address]329 Basophils/100 WBC (Bld) 0.4 % Normal 0.0-1.0 [facility] Comment on above: Performed By: #### L 301.0080 #### ML - LABORATORY [address] [place] [address]392 EOS# 0.00 x10(3) Normal 0.00-0.54 [facility] Comment on above: Performed By: #### L 301.0080 #### ML - LABORATORY [address] [place] [address] Eosinophils/100 WBC (Bld) 0.3 % Low 0.5-4.9 [facility] Comment on above: Performed By: #### L 301.0080 #### ML - LABORATORY [address] [place] [address] Erythrocyte distribution width (RBC) [Ratio] 15.5 % High 12.7-15.3 [facility] Comment on above: Performed By: #### L 301.0080 #### ML - LABORATORY [address] [place] [address]658 Hematocrit (Bld) [Volume fraction] 37.4 % Low 42.0-51.0 [facility] Comment on above: Performed By: #### L 301.0080 #### ML - LABORATORY [address] [place] [address]71 Hemoglobin (Bld) [Mass/Vol] 12.1 g/dL Low 14.0-17.2 [facility] Comment on above: Performed By: #### L 301.0080 #### ML - LABORATORY [address] [place] [address]147 LYMPH# 0.60 x10(3) Low 1.00-3.50 [facility] Comment on above: Performed By: #### L 301.0080 #### [facility] [address] [place] [address] 71706 Lymphocytes/100 WBC (Bld) 11.8 % Low 16.0-48.0 [facility] Comment on above: Performed By: #### L 301.0080 #### [facility] [address] [place] [address] 35274 MCH (RBC) [Entitic mass] 31.8 pg Normal 28.8-32.2 [facility] Comment on above: Performed By: #### L 301.0080 #### [facility] [address] [place] [address] 53599 MCHC (RBC) [Mass/Vol] 32.4 g/dL Low 33.0-36.0 [facility] Comment on above: Performed By: #### L 301.0080 #### [facility] [address] [place] [address] 51172 MCV (RBC) [Entitic vol] 98.0 fL High 80.0-94.0 [facility] Comment on above: Performed By: #### L 301.0080 #### [facility] [address] [place] [address]3835 MONO# 0.60 x10(3) Normal 0.30-0.80 [facility] Comment on above: Performed By: #### L 301.0080 #### [facility] [address] [place] [address] 11195 Monocytes/100 WBC (Bld) 12.1 % High 4.3-11.2 [facility] Comment on above: Performed By: #### L 301.0080 #### [facility] [address] [place] [address] 89053 NEUT# 3.50 x10(3) Normal 1.40-6.50 [facility] Comment on above: Performed By: #### L 301.0080 #### [facility] [address] [place] [address] 18400 Neutrophils/100 WBC (Bld) 75.4 % High 45.0-73.0 [facility] Comment on above: Performed By: #### L 301.0080 #### ML - LABORATORY [address] [place] [address] 50990 Platelet mean volume (Bld) [Entitic vol] 8.5 fL Normal 7.4-9.2 [facility] Comment on above: Performed By: #### L 301.0080 #### ML - LABORATORY [address] [place] [address] 09556 PLT 117 X10(3) Low 150-450 [facility] Comment on above: Performed By: #### L 301.0080 #### ML - LABORATORY [address] [place] [address] 86603 RBC 3.81 x10(6) Low 4.80-5.50 [facility] Comment on above: Performed By: #### L 301.0080 #### ML - LABORATORY [address] [place] [address] 85174 WBC 4.7 x10(3) Normal 4.5-10.0 [facility] Comment on above: Performed By: #### L 301.0080 #### ML - LABORATORY [address] [place] [address] 79015 CBC W Auto Differential pane l (Bld)on 12-22-2022 BASO ABS 0.00 x10(3) 0.00 - 0.10 x10(3) [facility] Basophils/100 WBC (Bld) 0.4 % 0.0 - 1.0 % [facility] EOS ABS 0.00 x10(3) 0.00 - 0.54 x10(3) [facility] Eosinophils/100 WBC (Bld) 0.3 % Low 0.5 - 4.9 % [facility] Erythrocyte distribution width (RBC) [Ratio] 15.5 % High 12.7 - 15.3 % [facility] Hematocrit (Bld) [Volume fraction] 37.4 % Low 42.0 - 51.0 % [facility] Hemoglobin (Bld) [Mass/Vol] 12.1 g/dL Low 14.0 - 17.2 g/dL [facility] LYMPH ABS 0.60 x10(3) Low 1.00 - 3.50 x10(3) [facility] Lymphocytes/100 WBC (Bld) 11.8 % Low 16.0 - 48.0 % [facility] MCH (RBC) [Entitic mass] 31.8 pg 28.8 - 32.2 pg [facility] MCHC (RBC) [Mass/Vol] 32.4 g/dL Low 33.0 - 36.0 g/dL [facility] MCV (RBC) [Entitic vol] 98.0 fL High 80.0 - 94.0 fl [facility] MONO ABS 0.60 x10(3) 0.30 - 0.80 x10(3) [facility] Monocytes/100 WBC (Bld) 12.1 % High 4.3 - 11.2 % [facility] Neutrophil Ab 3.50 x10(3) 1.40 - 6.50 x10(3) [facility] Neutrophils/100 WBC (Bld) 75.4 % High 45.0 - 73.0 % [facility] Platelet Count 117 X10(3) Low 150 - 450 X10(3) [facility] Platelet mean volume (Bld) [Entitic vol] 8.5 fL 7.4 - 9.2 fl [facility] RBC 3.81 x10(6) Low 4.80 - 5.50 x10(6) [facility] WBC 4.7 x10(3) 4.5 - 10.0 x10(3) [facility] CHEST-ONE VIEW ONLY - CXR1on 12-22-2022 CHEST-ONE VIEW ONLY - CXR1 [place] [address] Name: PETE CONLEY Phys: GLENDY GERONIMO M.D. : 48 Age: 72 Sex: M Acct: [id number] Loc: [facility] Exam Date: 12/22/22 Status: ADM IN Radiology No.: Unit Number: [id number] Exam # Type/Exam [id number] RAD / CHEST-ONE VIEW ONLY - CXR1 EXAMINATION: ONE XRAY VIEW OF THE CHEST12/22/2022 7:36 pm CHEST ONE VIEW AP/PA EXAM DESCRIPTION: COMPARISON: Chest radiograph, October 24, 2022, CT chest December 18, 2022 HISTORY: ORDERING SYSTEM PROVIDED HISTORY: TECHNOLOGIST PROVIDED HISTORY: Reason for Exam: rule out pulmonary congestion/edema FINDINGS: Single AP radiograph of the chest was obtained. Mild central venous pulmonary congestion. Reticulonodular opacities throughout the parenchyma. No acute consolidation, pneumothorax, or pleural effusion.. The cardiomediastinal silhouette is enlarged. The bones and soft tissues are unremarkable. IMPRESSION: 1. Cardiomegaly without acute consolidation. 2. Reticular nodule opacities noted throughout stable . Electronically signed By Alex Garcia MD 12/22/2022 10:09:56 PM EST Workstation ID : [id number] < > Reported By: ALEX GARCIA M.D. Signed In Fluency By: ALEX GARCIA M.D. << Signature on File>> Reported By: ALEX GARCIA M.D. Signed By: ALEX GARCIA M.D. Tests performed at: [place] [address] Normal [facility] ECHO COMPLETEon 12-22-2022 ECHO COMPLETE [place] 7[address]272 HEALTH INFORMATION MANAGEMENT CARDIOLOGY REPORT Patient: PETE CONLEYTRISTAN D.O. [id number] [age] M Status: ADM IN [facility] Exam # Type/Exam [id number] CARD / ECHO COMPLETE DATE OF SERVICE: 12/22/2022 PROCEDURE: Echocardiogram. INDICATION: Congestive heart failure, end-stage kidney disease, stage 4. [employer]: Technologist is Kim. HEIGHT: 71. WEIGHT: 266. BLOOD PRESSURE: 190/90. 2D/M-MODE MEASUREMENTS: 1. Septum is not measured. 2. Posterior wall not measured. 3. End-diastole not measured. 4. End-systole not measured. 5. Left atrial size 4.2. 6. Aortic root 2.8. I believe this is my 2nd time dictation, it then got stopped. FINDINGS: 1. Very limited acoustic view in the parasternal short-axis view. There appears to be concentric left ventricular hypertrophy. 2. Parasternal short-axis view, left ventricular cavity seems to be moving pretty good. Ejection fraction is around 40%. The inferior septal wall seems to be hypokinetic. 3. Pulmonic valve is never seen. 4. Aortic valve is 3 leaflets, opens freely. Valve area is 2.3. 5. Difficult to determine number of leaflets of the aortic valve. Does appear to be 3 leaflets. Peak gradient is 9, mean gradient is 6. Valve area is 2.3 by VTI. 6. In the apical 4-chamber view, the distal septal wall also seems to be slightly decreased. Again, ejection fraction around 40%. 7. Mild degree of mitral annular calcification. 8. Mild degree of centrally located mitral regurgitation. 9. Mitral valve is 3.7 by pressure half-time. 10. Velocity of mitral regurgitation is 5.3. 11. TAPSE is 1.9, suggesting normal RV function. 12. Moderate degree of mitral annular calcification. 13. PA pressure around 30 mmHg. CONCLUSION: Echocardiogram demonstrates concentric left ventricular hypertrophy. Ejection fraction 50%. Seems to be slight hypokinesis of distal septal wall. Mild to moderate degree of mitral regurgitation. Mild degree of tricuspid regurgitation. PA pressure increased at 35 mmHg. Aortic valve is sclerotic, thickened, but the valve area is noted to be normal. Report#: Dict ID [id number] / Int ID [id number] cc: Theresa Marley MD 12/24/22 1720 TRISTAN ALEXANDER D.O. cc: MELONIE DOUGLASS M.D.; MOISES PRATER M.D. << Signature on File>> Reported By: TRISTAN ALEXANDER D.O. Signed By: TRISTAN ALEXANDER D.O. Tests performed at: [address] [address] Normal [facility] EKGon 12-22-2022 Atrial Rate 90 BPM [facility] Calculated P Dutton 69 degrees [facility] Calculated R Dutton 125 degrees [facility] Calculated T Dutton 32 degrees [facility] P-R Interval 176 ms [facility] QRS Duration 148 ms [facility] QT Interval 406 ms [facility] QTC Calculation (Bazett) 496 ms [facility] Ventricular Rate 90 BPM [facility] GLUCOSE FSon 12-22-2022 Glucose [Mass/Vol] 195 mg/dL High 70-110 [facility] Comment on above: Performed By: #### L 100.0070 #### ML - LABORATORY [address] [place] [address] 62780 Glucose [Mass/Vol] 159 mg/dL High 70-110 [facility] Comment on above: Performed By: #### L 100.0070 #### ML - LABORATORY [address] [place] [address]967 Glucose post fast [Mass/Vol] on 12-22-2022 Glucose [Mass/Vol] 195 mg/dL High 70 - 110 mg/dL [facility] Glucose [Mass/Vol] 159 mg/dL High 70 - 110 mg/dL [facility] HIGH SENSITIVITY TROPONIN To n 12-22-2022 TROPONIN T(HIGHLY SENSITIVE) 76.06 ng/L Critically high 6 - 12 ng/L [facility] No Panel Informationon 12-22 [facility] hsTROP Ton 12-22-2022 hsTROP T 76.06 ng/L Critically high 6-12 [facility] Comment on above: Result Comment: When assessing risk for acute coronary syndromes: In patients undergoing blood draw greater than 2 hours from symptom onset, with history of very low to moderate risk and non-ischemic ECG, an initial hs-Troponin T less than 12 ng/L AND a 1 hour delta hs-Troponin T less than 3 ng/L should be considered very low risk for 30 day MACE. Performed By: #### L 301.0080 #### ML - LABORATORY [address] [place] [address] 16098 BMPon 12-21-2022 Anion gap [Moles/Vol] 17.4 mmol/L Normal 15-22 [facility] Comment on above: Performed By: #### L 100.0030, L100.0010, L301.0080 ####ML - [id number] [place] [address] 6[address]75 Calcium [Mass/Vol] 8.9 mg/dL Normal 8.8-10.2 [facility] Comment on above: Performed By: #### L 100.0030, L100.0010, L301.0080 #### - [id number] [place] [address] Chloride [Moles/Vol] 103 mmol/L Normal 98-107 [facility] Comment on above: Performed By: #### L 100.0030, L100.0010, L301.0080 #### - [id number] [place] [address] CO2 [Moles/Vol] 21 mmol/L Low 22-29 [facility] Comment on above: Performed By: #### L 100.0030, L100.0010, L301.0080 #### - [id number] [place] [address] Creatinine [Mass/Vol] 3.02 mg/dL High 0.70-1.20 [facility] Comment on above: Performed By: #### L 100.0030, L100.0010, L301.0080 ####[facility] [id number] [place] [address] eGFR if AFR JOSSELIN 25 [facility] Comment on above: Result Comment: eGFR >= 60 Indicates normal kidney function. * eGFR IS AN ESTIMATE * (AFR JOSSELIN = ) (non-AFR AM = NON-) MDRD calculation used in the eGFR should not be used to dose medications. For further limitations of the eGFR please refer to the Physician Website or the National Kidney Disease Education Program website (www.nkdep.nih.gov). Performed By: #### L 100.0030, L100.0010, L301.0080 ####ML - [id number] [place] [address] eGFR nonAFR Josselin 20 [facility] Comment on above: Performed By: #### L 100.0030, L100.0010, L301.0080 ####[facility] [id number] [place] [address] Glucose [Mass/Vol] 178 mg/dL High 82-115 [facility] Comment on above: Performed By: #### L 100.0030, L100.0010, L301.0080 #### - [id number] [place] [address] Potassium [Moles/Vol] 5.4 mmol/L High 3.5-5.0 [facility] Comment on above: Performed By: #### L 100.0030, L100.0010, L301.0080 ####ML - [id number] [place] [address] Sodium [Moles/Vol] 136 mmol/L Normal 135-145 [facility] Comment on above: Performed By: #### L 100.0030, L100.0010, L301.0080 ####[facility] [id number] [place] [address] Urea nitrogen [Mass/Vol] 46 mg/dL High 8-23 [facility] Comment on above: Performed By: #### L 100.0030, L100.0010, L301.0080 #### - [id number] [place] [address] Basic metabolic 2000 panelon 12-21-2022 Anion gap [Moles/Vol] 17.4 mmol/L 15 - 2 2 mmol/L [facility] Calcium [Mass/Vol] 8.9 mg/dL 8.8 - 10. 2 mg/dL [facility] Chloride [Moles/Vol] 103 mmol/L 98 - 10 7 mmol/L [facility] CO2 [Moles/Vol] 21 mmol/L Low 22 - 29 mmol/L [facility] Creatinine [Mass/Vol] 3.02 mg/dL High 0.70 - 1.20 mg/dL [facility] eGFR-All Other Races [address] [facility] GFR/1.73 sq M.predicted among blacks MDRD (S/P/Bld) [Vol rate/Area] 25 mL/min/{1.73_m2} [facility] Glucose [Mass/Vol] 178 mg/dL High 82 - 115 mg/dL [facility] Potassium [Moles/Vol] 5.4 mmol/L High 3.5 - 5.0 mmol/L [facility] Sodium [Moles/Vol] 136 mmol/L 135 - 145 mmol/L [facility] Urea nitrogen [Mass/Vol] 46 mg/dL High 8 - 23 mg/dL [facility] CBCon 12-21-2022 BASO# 0.00 x10(3) Normal 0.00-0.10 [facility] Comment on above: Performed By: #### L 200.0010 ####ML [facility] [id number] [place] [address] Basophils/100 WBC (Bld) 0.2 % Normal 0.0-1.0 [facility] Comment on above: Performed By: #### L 200.0010 ####ML [facility] [id number] [place] [address] EOS# 0.00 x10(3) Normal 0.00-0.54 [facility] Comment on above: Performed By: #### L 200.0010 ####ML [facility] [id number] [place] [address] Eosinophils/100 WBC (Bld) 0.4 % Low 0.5-4.9 [facility] Comment on above: Performed By: #### L 200.0010 ####ML [facility] [id number] [place] [address] Erythrocyte distribution width (RBC) [Ratio] 15.9 % High 12.7-15.3 [facility] Comment on above: Performed By: #### L 200.0010 ####ML [facility] [id number] [place] [address] Hematocrit (Bld) [Volume fraction] 43.0 % Normal 42.0-51.0 [facility] Comment on above: Performed By: #### L 200.0010 ####ML [facility] [place] [address] Hemoglobin (Bld) [Mass/Vol] 13.8 g/dL Low 14.0-17.2 [facility] Comment on above: Performed By: #### L 200.0010 ####ML [facility] [id number] [place] [address] LYMPH# 0.20 x10(3) Low 1.00-3.50 [facility] Comment on above: Performed By: #### L 200.0010 ####ML [address] [address] Lymphocytes/100 WBC (Bld) 2.2 % Low 16.0-48.0 [facility] Comment on above: Performed By: #### L 200.0010 ####ML [address] [address] MCH (RBC) [Entitic mass] 31.6 pg Normal 28.8-32.2 [facility] Comment on above: Performed By: #### L 200.0010 ####ML [address] [address] MCHC (RBC) [Mass/Vol] 32.2 g/dL Low 33.0-36.0 [facility] Comment on above: Performed By: #### L 200.0010 ####ML [address] [address] MCV (RBC) [Entitic vol] 98.0 fL High 80.0-94.0 [facility] Comment on above: Performed By: #### L 200.0010 ####[address] [address] MONO# 0.60 x10(3) Normal 0.30-0.80 [facility] Comment on above: Performed By: #### L 200.0010 ####ML [address] [address] Monocytes/100 WBC (Bld) 7.9 % Normal 4.3-11.2 [facility] Comment on above: Performed By: #### L 200.0010 ####[address] [address] NEUT# 6.40 x10(3) Normal 1.40-6.50 [facility] Comment on above: Performed By: #### L 200.0010 ####ML [address] [address] Neutrophils/100 WBC (Bld) 89.3 % High 45.0-73.0 [facility] Comment on above: Performed By: #### L 200.0010 ####ML - [id number] [place] [address] Platelet mean volume (Bld) [Entitic vol] 8.8 fL Normal 7.4-9.2 [facility] Comment on above: Performed By: #### L 200.0010 ####ML - [id number] [place] [address] PLT 131 X10(3) Low 150-450 [facility] Comment on above: Performed By: #### L 200.0010 ####ML - [id number] [place] [address] RBC 4.38 x10(6) Low 4.80-5.50 [facility] Comment on above: Performed By: #### L 200.0010 ####ML - [id number] [place] [address] WBC 7.2 x10(3) Normal 4.5-10.0 [facility] Comment on above: Performed By: #### L 200.0010 ####ML - [id number] [place] [address] CBC W Auto Differential pane l (Bld)on 12-21-2022 BASO ABS 0.00 x10(3) 0.00 - 0.10 x10(3) [facility] Basophils/100 WBC (Bld) 0.2 % 0.0 - 1.0 % [facility] EOS ABS 0.00 x10(3) 0.00 - 0.54 x10(3) [facility] Eosinophils/100 WBC (Bld) 0.4 % Low 0.5 - 4.9 % [facility] Erythrocyte distribution width (RBC) [Ratio] 15.9 % High 12.7 - 15.3 % [facility] Hematocrit (Bld) [Volume fraction] 43.0 % 42.0 - 51.0 % [facility] Hemoglobin (Bld) [Mass/Vol] 13.8 g/dL Low 14.0 - 17.2 g/dL [facility] LYMPH ABS 0.20 x10(3) Low 1.00 - 3.50 x10(3) [facility] Lymphocytes/100 WBC (Bld) 2.2 % Low 16.0 - 48.0 % [facility] MCH (RBC) [Entitic mass] 31.6 pg 28.8 - 32.2 pg [facility] MCHC (RBC) [Mass/Vol] 32.2 g/dL Low 33.0 - 36.0 g/dL [facility] MCV (RBC) [Entitic vol] 98.0 fL High 80.0 - 94.0 fl [facility] MONO ABS 0.60 x10(3) 0.30 - 0.80 x10(3) [facility] Monocytes/100 WBC (Bld) 7.9 % 4.3 - 11.2 % [facility] Neutrophil Ab 6.40 x10(3) 1.40 - 6.50 x10(3) [facility] Neutrophils/100 WBC (Bld) 89.3 % High 45.0 - 73.0 % [facility] Platelet Count 131 X10(3) Low 150 - 450 X10(3) [facility] Platelet mean volume (Bld) [Entitic vol] 8.8 fL 7.4 - 9.2 fl [facility] RBC 4.38 x10(6) Low 4.80 - 5.50 x10(6) [facility] WBC 7.2 x10(3) 4.5 - 10.0 x10(3) [facility] CHEST-ONE VIEW ONLY - CXR1on 12-21-2022 CHEST-ONE VIEW ONLY - CXR1 [place] [address] Name: PETE CONLEY Phys: SARA HAY D.O. : 48 Age: 72 Sex: M Acct: [id number] Loc: ED Exam Date: 12/21/22 Status: PRE ER Radiology No.: Unit Number: [id number] Exam # Type/Exam [id number] RAD / CHEST-ONE VIEW ONLY - CXR1 EXAMINATION: ONE XRAY VIEW OF THE CHEST 12/21/2022 4:11 pm COMPARISON: 10/24/2022 HISTORY: ORDERING SYSTEM PROVIDED HISTORY: TECHNOLOGIST PROVIDED HISTORY: Reason for Exam: Fluid retention and shortness of breath. FINDINGS: Pulmonary vascular cephalization, veiling of the lower lobe vessels and scant bilateral pleural effusions are seen. Heart is top-normal in size. There is no lobar consolidation or pneumothorax. Skeletal elements remain intact. IMPRESSION: 1. Mild pulmonary edema. Electronically signed By Maximino Lake DO 12/21/2022 4:14:20 PM EST Workstation ID : [id number] < > Reported By: MAXIMINO LAKE D.O. Signed In Fluency By: MAXIMINO LAKE D.O. << Signature on File>> Reported By: MAXIMINO LAKE D.O. Signed By: MAXIMINO LAKE D.O. Tests performed at: [address] [address] Normal [facility] ELECTROCARDIOGRAMon 12-22-[address] [facility] [place] [address] HEALTH INFORMATION MANAGEMENT ELECTROCARDIOGRAM REPORT Patient: PETE CONLEY Ordering: SARA HAY D.O. [id number] [age] M Exam Date: 12/21/22 Report #: [id number] Status: ADM IN [facility] Test Reason : Blood Pressure : / mmHG Vent. Rate : 090 BPM Atrial Rate : 090 BPM P-R Int : 176 ms QRS Dur : 148 ms QT Int : 406 ms P-R-T Axes : 069 125 032 degrees QTc Int : 496 ms Normal sinus rhythm Right bundle branch block Left posterior fascicular block Bifascicular block Abnormal ECG When compared with ECG of 06-OCT-2021 15:35, (RBBB and left posterior fascicular block) is now present Borderline criteria for Inferior infarct are no longer present NO STEMI Confirmed by SARA HAY DO ([id number]) on 12/22/2022 1:39:18 PM Referred By: Confirmed By:SARA HAY DO Signed in MUSE 12/22/22 1341 SARA HAY D.O. cc: << Signature on File>> Reported By: SARA HAY D.O. Signed By: SARA HAY D.O. Tests performed at: [address] [address] [facility] EMERGENCY DEPARTMENT REPORTo n 12-21-2022 EMERGENCY [place] [address] HEALTH INFORMATION MANAGEMENT EMERGENCY DEPARTMENT REPORT Patient: PETE CONLEY HARISH BURROWS M.D. [id number] [age] M [facility] Date of Service: 12/21/22 ADDENDUM: The patient's laboratory studies came back. His B-natriuretic peptide is over 12,000. This is the highest it has ever been. His chest x-ray shows pulmonary edema, so he is consequently given Lasix and nitro paste, his blood pressure is elevated as well. He did seem to clear a little bit with a breathing treatment, so there might be some COPD element or bronchitis element as well, but he was coughing until he got kind of nauseated after that , so I gave him some Zofran. DISPOSITION AND PLAN: He will be admitted to the hospitalist service. His high sensitivity troponin was 47 on repeat, so there was no significant delta. He is admitted to the hospitalist service for further evaluation and treatment. I did evaluate his EKG here it showed normal sinus rhythm with a right bundle branch block. No evidence of ischemia or infarction. CLINICAL DIAGNOSES: Congestive heart failure and chronic renal failure. Report#: Dict ID [id number] / Int ID [id number] 01/01/23 1522 HARISH BURROWS M.D. cc: HARISH BURROWS M.D.; MOISES PRATER M.D. << Signature on File>> Reported By: HARISH BURROWS M.D. Signed By: HARISH BURROWS M.D. Tests performed at: [address] [id number] [facility] EMERGENCY [place] [address] HEALTH INFORMATION MANAGEMENT EMERGENCY DEPARTMENT REPORT Patient: PETE CONLEY HARISH BURROWS M.D. [id number] [age] M [facility] Date of Service: 12/21/22 CHIEF COMPLAINT: Swelling and increasing shortness of breath. HISTORY OF PRESENT ILLNESS: The patient is a 72-year-old gentleman brought in today with the above complaint. He has had some swelling of his extremities and increasing shortness of breath for the past couple of days. He has had some nasal congestion and cough as well. He has not had a fever that he is aware of. He is on Lasix every other day. States that he has been taking this as directed. No history of COPD or asthma. No other complaints at this time. Denies any chest pain associated with this. He has not had any problems with urination. No other complaints right now. REVIEW OF SYSTEMS: Otherwise, negative. PAST MEDICAL HISTORY: CHF, diabetes, hypertension. MEDICATIONS: Listed. ALLERGIES: Listed. FAMILY HISTORY: Noncontributory. SOCIAL HISTORY: No drugs, tobacco. PHYSICAL EXAMINATION: GENERAL: A well-nourished, well-developed male, who is awake, alert, not in any acute distress. VITAL SIGNS: As charted. HEENT: Atraumatic, normocephalic. Looks a little puffy around his face. NECK: There is JVD midway to the angle of the jaw. Trachea is midline. There is no stridor. CARDIOVASCULAR: Regular rate and rhythm. No murmurs, rubs, or gallops. LUNGS: He has diffuse end-expiratory wheezing bilaterally, diminished breath sounds. ABDOMEN: Soft, nontender, nondistended. Bowel sounds positive. EXTREMITIES: No clubbing or cyanosis. Trace to 1+ pitting edema. NEURO: He is neurologically intact. EMERGENCY DEPARTMENT COURSE AND MEDICAL DECISION MAKING: At this point, differential diagnosis included acute bronchitis, CHF, pneumonia, acute coronary syndrome. At this point, he has some end-expiratory wheezing throughout, which may be CHF or could be an acute bronchitis and upper respiratory infection. He has some nasal congestion and signs of URI. We will test him for COVID for this. I also gave him a DuoNeb treatment to see if this helps with the wheezing at all. He claims to be taking his diuretics as directed. We will get a B-natriuretic peptide, chest x-ray with further dictation to follow. Report#: Dict ID [id number] / Int ID [id number] 12/21/222 HARISH BURROWS M.D. cc: HARISH BURROWS M.D.; MOISES PRATER M.D. << Signature on File>> Reported By: HARISH BURROWS M.D. Signed By: HARISH BURROWS M.D. Tests performed at: [address] [address] Normal [facility] HEPATIC PANELon 12-21-2022 A:G RATIO 1.18 Normal 1.1-2.5 [facility] Comment on above: Performed By: #### L 100.0030, L100.0010, L301.0080 ####[facility] [id number] [place] [address] Albumin [Mass/Vol] 3.9 g/dL Normal 3.5-5.2 [facility] Comment on above: Performed By: #### L 100.0030, L100.0010, L301.0080 ####[facility] [id number] [place] [address] ALK. PHOS 102 U/L Normal 40-130 [facility] Comment on above: Performed By: #### L 100.0030, L100.0010, L301.0080 ####[facility] [id number] [place] [address] ALT [Catalytic activity/Vol] 13 U/L Normal 5-41 [facility] Comment on above: Performed By: #### L 100.0030, L100.0010, L301.0080 ####ML [facility] [id number] [place] [address] AST [Catalytic activity/Vol] 28 U/L Normal 5-40 [facility] Comment on above: Performed By: #### L 100.0030, L100.0010, L301.0080 #### - [id number] [place] [address] Bilirubin [Mass/Vol] 0.9 mg/dL Normal 0.2-1.2 [facility] Comment on above: Performed By: #### L 100.0030, L100.0010, L301.0080 ####ML - [id number] [place] [address] DIRECT BILIRUBI 0.3 mg/dL Normal 0.0-0.3 [facility] Comment on above: Performed By: #### L 100.0030, L100.0010, L301.0080 #### - [id number] [place] [address] Globulin (S) [Mass/Vol] 3.3 g/dL Normal 1.5-4.5 [facility] Comment on above: Performed By: #### L 100.0030, L100.0010, L301.0080 ####[facility] UOEJWCDUHG427 [place] [address] Protein [Mass/Vol] 7.2 g/dL Normal 6.4-8.3 [facility] Comment on above: Performed By: #### L 100.0030, L100.0010, L301.0080 ####[facility] [address] [place] [address] HIGH SENSITIVITY TROPONIN To n 12-21-2022 TROPONIN T(HIGHLY SENSITIVE) 47.40 ng/L High 6 - 12 ng/L [facility] TROPONIN T(HIGHLY SENSITIVE) 47.95 ng/L High 6 - 12 ng/L [facility] Hepatic function 2000 panelo n 12-21-2022 Albumin [Mass/Vol] 3.9 g/dL 3.5 - 5.2 g/dL [facility] Albumin/Globulin [Mass ratio] 1.18 {ratio} 1.1 - 2.5 [facility] ALP [Catalytic activity/Vol] 102 U/L 40 - 130 U/L [facility] ALT [Catalytic activity/Vol] 13 U/L 5 - 41 U/L [facility] AST [Catalytic activity/Vol] 28 U/L 5 - 40 U/L [facility] Bilirubin [Mass/Vol] 0.9 mg/dL 0.2 - 1 .2 mg/dL [facility] Bilirubin.direct [Mass/Vol] 0.3 mg/dL 0.0 - 0.3 mg/dL [facility] Globulin (S) [Mass/Vol] 3.3 g/dL 1.5 - 4.5 g/dL [facility] Protein [Mass/Vol] 7.2 g/dL 6.4 - 8.3 g/dL [facility] Natriuretic peptide.B prohor adam N-Terminal [Mass/Vol]on 12-21-2022 Natriuretic peptide B (Bld) [Mass/Vol] [address] pg/mL [facility] No Panel Informationon 12-21 [facility] PRO-BNPon 12-21-2022 Natriuretic peptide B (Bld) [Mass/Vol] 568[address] pg/mL Normal [facility] Comment on above: Result Comment: HF U NLIKELY: NT-PRO BNP <300 pg/mL HF LIKELY: NT-PRO BNP >450 pg/mL (AGE <50) NT-PRO BNP >900 pg/mL (AGE 50-75) NT-PRO BNP >1800 pg/mL (AGE >75) HF VERY LIKELY: NT-PRO BNP >10,000 pg/mL SOURCE: PRIDE ALGORITHM FOR PRO-BNP; CRITICAL PATHWAYS IN CARDIOLOGY VOLUME 3, NUMBER 4; JULY 2004 Performed By: #### L 301.0460 ####ML - [facility] [id number] [place] [address] RAPID COVIDon 12-21-2022 SARS-CoV-2 (COVID-19) RNA DOM+probe Ql (Unsp spec) Negative Normal NEGATIVE [facility] Comment on above: Result Comment: THIS TEST HAS BEEN AUTHORIZED BY FDA UNDER AN EMERGENCY USE AUTHORIZATION (EUA). NEGATIVE: NEGATIVE FOR COVID19 (SARS-CoV-2) BY PCR POSITIVE: POSITIVE FOR COVID19 (SARS-CoV-2) BY PCR PRESUMPTIVE POSITIVE: POSITIVE BY SINGLE AGARWAL SARS-CoV TARGET. SARS-CoV-1 CANNOT BE EXCLUDED, BUT IS NOT CURRENTLY CIRCULATING IN [place]. Performed By: #### L 399.994 #### ML - [facility] [address] [place] [address] SARS-CoV-2 (COVID-19) RNA NA A+probe Ql (Resp)on 12-21-2022 SARS-CoV-2 (COVID-19) RNA DOM+probe Ql (Unsp spec) Negative NEGATIVE [facility] US RETROPERITONEAL COMPon [facility] RETROPERITONEAL COMPLETEo n 12-21-2022 US RETROPERITONEAL COMPLETE [address] [address] Name: PETE CONLEY Phys: MELONIE DOUGLASS M.D. : 48 Age: 72 Sex: M Acct: [id number] Loc: SDCENTRAL Exam Date: 12/21/22 Status: ADM IN Radiology No.: Unit Number: [id number] Exam # Type/Exam [id number] US / US RETROPERITONEAL COMPLETE EXAMINATION: RETROPERITONEAL ULTRASOUND OF THE KIDNEYS AND URINARY BLADDER 12/21/2022 COMPARISON: None HISTORY: ORDERING SYSTEM PROVIDED HISTORY: TECHNOLOGIST PROVIDED HISTORY: Reason for Exam: [place] ON CKD FINDINGS: Kidneys: The right kidney measures 10.3 x 5.8 x 5.8 cm in length and the left kidney measures 11.0 x 4.8 x 4.9 cm in length. Kidneys demonstrate normal cortical echogenicity. No evidence of hydronephrosis or intrarenal stones. Bladder: 2.8 x 3.1 x 2.6 cm mass within the inferior bladder. No significant post void residual. IMPRESSION: Large bladder mass. Further evaluation may be obtained with [address] urography. Electronically signed By Alex Garcia MD 12/21/2022 9:41:09 PM EST Workstation ID : [id number] < > Reported By: ALEX GARCIA M.D. Signed In Fluency By: ALEX GARCIA M.D. << Signature on File>> Reported By: ALEX GARCIA M.D. Signed By: ALEX GARCIA M.D. Tests performed at: [place] [address] Normal [facility] hsTROP Ton 12-21-2022 hsTROP T 47.40 ng/L [address] Comment on above: Result Comment: When assessing risk for acute coronary syndromes: In patients undergoing blood draw greater than 2 hours from symptom onset, with history of very low to moderate risk and non-ischemic ECG, an initial hs-Troponin T less than 12 ng/L AND a 1 hour delta hs-Troponin T less than 3 ng/L should be considered very low risk for 30 day MACE. Performed By: #### L 301.0080 #### ML - LABORATORY [address] [place] [address] hsTROP T 47.95 ng/L [address] Comment on above: Result Comment: When assessing risk for acute coronary syndromes: In patients undergoing blood draw greater than 2 hours from symptom onset, with history of very low to moderate risk and non-ischemic ECG, an initial hs-Troponin T less than 12 ng/L AND a 1 hour delta hs-Troponin T less than 3 ng/L should be considered very low risk for 30 day MACE. Performed By: #### L 100.0030, L100.0010, L301.0080 ####ML - [id number] [place] [address] CT CHEST HI RESOL PE WO/CONT on 12-18-2022 [facility] CT CHEST HIGH RESOLUTIONon 0 12-18-2022 CT CHEST HIGH RESOLUTION [place] [address] Name: PETE CONLEY Phys: CRYSTAL BAUER D.O. : 48 Age: 72 Sex: M Acct: [id number] Loc: RAD CT Exam Date: 12/18/22 Status: REG CLI Radiology No.: Unit Number: [id number] Exam # Type/Exam [id number] CT / CT CHEST HIGH RESOLUTION EXAMINATION: CT IMAGES OF THE CHEST WITHOUT CONTRAST, HIGH RESOLUTION12/18/2022 7:[address] CHEST HIGH RESOLUTION High-resolution CT scan of the thorax. TECHNIQUE: CT of the chest was performed without the administration of intravenous contrast. High resolution CT imaging was performed of the lungs. Multiplanar reformatted images are provided for review. Automated exposure control, iterative reconstruction, and/or weight based adjustment of the mA/kV was utilized to reduce the radiation dose to as low as reasonably achievable. High-resolution CT scan of the thorax was performed without contrast with thin section axial imaging performed at 1 cm intervals. Multiple-row detector helical CT examination of the cervical spine without IV contrast. Axial, sagittal, and coronal reconstructed images. This exam was performed according to our departmental dose optimization program, and includes the following measures where applicable: automated exposure control, adjustment of the mAs and/or kVp according to patient size and/or exam, and an iterative reconstruction algorithm. COMPARISON: 03/22/2022 HISTORY: ORDERING SYSTEM PROVIDED HISTORY: TECHNOLOGIST PROVIDED HISTORY: Reason for Exam: . Interstitial pulmonary disease J 84.9. 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 FINDINGS: There are small bilateral pleural effusions. There is mild interstitial thickening and some minimal dependent ground-glass opacity. No honeycombing. There is a 1.2 cm focus of ground-glass opacity which is somewhat nodular in the left lower lobe medially on series 4, image 41. Heart size is normal. There is severe coronary artery calcification. There is subcarinal lymphadenopathy measuring 2.2 cm in short axis dimension. No hilar lymphadenopathy. IMPRESSION: No significant change in the interstitial lung disease. 12 mm left ground-glass pulmonary nodule. Recommend a non-contrast Chest CT at 6 months to confirm persistence, then additional non-contrast Chest CTs every 2 years until 5 years. If nodule grows or develops solid component(s), consider resection. These guidelines do not apply to immunocompromised patients and patients with cancer. Follow up in patients with significant comorbidities as clinically warranted. For lung cancer screening, adhere to Lung-RADS guidelines. Reference: Radiology. 2017; 284(1):228-43. Mild subcarinal lymphadenopathy is slightly worsened from the prior study. This can be followed up in 6 months alternatively a PET-CT scan now could further evaluate. Electronically signed By Suzan Sexton MD 12/21/2022 9:11:27 AM EST Workstation ID : [id number] < > Reported By: SUZAN SEXTON M.D. Signed In Fluency By: SUZAN SEXTON M.D. << Signature on File>> Reported By: SUZAN SEXTON M.D. Signed By: SUZAN SEXTON M.D. Tests performed at: [address] [address] Normal [facility] .Auto Diffon 10-26-2022 Basophil, Absolute 0.0 10 3/mcL Normal 0.0-0.3 [facility] ([place]) Comment on above: Performed By: #### A ELIZABETH, ADIFF, CBC #### [address] [address] Basophils/100 WBC (Bld) 0.3 % Normal 0.0-2.5 [facility] ([place]) Comment on above: Performed By: #### A ELIZABETH, ADIFF, CBC #### [address] [address] Eosinophil, Absolute 0.3 10 3/mcL Normal 0.0-0.7 [facility] ([place]) Comment on above: Performed By: #### A ELIZABETH, ADIFF, CBC #### [address] [address] Eosinophils/100 WBC (Bld) 5.8 % Normal 0.0-6.0 [facility] [facility] ([place]) Comment on above: Performed By: #### A ELIZABETH, ADIFF, CBC #### [address] [address] Lymphocyte, Absolute 1.1 10 3/mcL Normal 0.9-4.3 [facility] ([place]) Comment on above: Performed By: #### A ELIZABETH, ADIFF, CBC #### [address] [address] Lymphocytes/100 WBC (Bld) 19.2 % Low 20.0-40.0 [facility] ([place]) Comment on above: Performed By: #### A ELIZABETH, ADIFF, CBC #### [address] [address] Monocyte, Absolute 0.6 10 3/mcL Normal 0.1-1.4 [facility] ([place]) Comment on above: Performed By: #### A IRA JOHNSON, CBC #### [address] [address] Monocytes/100 WBC (Bld) 10.8 % Normal 2.0-13.0 [facility] ([place]) Comment on above: Performed By: #### A IRA JOHNSON, CBC #### [place] [id number] Neutrophils/100 WBC (Bld) 63.9 % Normal 50.0-75.0 [facility] ([place]) Comment on above: Performed By: #### A IRA JOHNSON, CBC #### [place] [address] .NEUABSon 10-26-2022 Neutrophil, Absolute 3.7 10 3/mcL Normal 2.3-8.1 [facility] ([place]) Comment on above: Performed By: #### A IRA JOHNSON, CBC #### [place] [address] CBCon 10-26-2022 Erythrocyte distribution width (RBC) [Ratio] 15.0 % Normal 11.5-15.5 [facility] ([place]) Comment on above: Performed By: #### A IRA JOHNSON, CBC #### [place] [address] Hematocrit (Bld) [Volume fraction] 42.1 % Normal 40.0-52.0 [facility] ([place]) Comment on above: Performed By: #### A IRA JOHNSON, CBC #### [place] [address] Hgb 13.7 G/dL Normal 13.0-17.5 [facility] ([place]) Comment on above: Performed By: #### A IRA JOHNSON, CBC #### [place] [address] MCH (RBC) [Entitic mass] 31.7 pg Normal 27.0-33.0 [facility] ([place]) Comment on above: Performed By: #### A IRA JOHNSON, CBC #### [address] [address] MCHC 32.5 G/dL Normal 32.0-36.0 [facility] ([place]) Comment on above: Performed By: #### A IRA JOHNSON, CBC #### [address] [address] MCV (RBC) [Entitic vol] 97.5 fL Normal 81.0-100.0 [facility] ([place]) Comment on above: Performed By: #### A IRA JOHNSON, CBC #### [address] [address] Platelet 150 10 3/mcL Normal 150-450 [facility] ([place]) Comment on above: Performed By: #### A IRA JOHNSON, CBC #### [address] [address] Platelet mean volume (Bld) [Entitic vol] 9.5 fL Normal 6.4-10.5 [facility] ([place]) Comment on above: Performed By: #### A IRA JOHNSON, CBC #### [address] [address] RBC 4.32 10 6/mcL Low 4.50-6.00 [facility] ([place]) Comment on above: Performed By: #### A IRA JOHNSON, CBC #### [address] [address] WBC 5.7 10 3/mcL Normal 4.5-10.8 [facility] ([place]) Comment on above: Performed By: #### A IRA JOHNSON, CBC #### [address] [address] CHEST (TWO VIEWS) - CXRon CHEST (TWO VIEWS) - CXR [place] [address] Name: PETE CONLEY Phys: MOISES PRATER M.D. : 46 Age: 72 Sex: M Acct: [id number] Loc: RAD Exam Date: 10/24/22 Status: REG CLI Radiology No.: Unit Number: [id number] Exam # Type/Exam [id number] RAD / CHEST (TWO VIEWS) - CXR HISTORY: Pneumonia COMPARISON: September FINDINGS: There are a few mild streaky and hazy opacities in the lung bases, greater on the left. The cardiac silhouette is mildly enlarged. The pulmonary vasculature is unremarkable in appearance. IMPRESSION: Mild basilar atelectasis or less likely consolidation. Electronically signed By Candida Renee MD 10/24/2022 2:25:10 PM EST Workstation ID : [id number] < > Reported By: CANDIDA RENEE M.D. Signed In Fluency By: CANDIDA RENEE M.D. << Signature on File>> Reported By: CANDIDA RENEE M.D. Signed By: CANDIDA RENEE M.D. Tests performed at: [place] [address] Normal [facility] XR CHEST 2V FRONTAL/LATon [facility] .GFRon 10-05-2022 GFR 23 ml/min/1.73sqm Normal [facility] ([place]) Comment on above: Result Comment: GFR Population mean for , Non- Americans Ages 20-29 = 116 mL/min/1.73 sq.m. Ages 30-39 = 107 mL/min/1.73 sq.m. Ages 40-49 = 99 mL/min/1.73 sq.m. Ages 50-59 = 93 mL/min/1.73 sq.m. Ages 60-69 = 85 mL/min/1.73 sq.m. Ages 70+ = 75 mL/min/1.73 sq.m. Chronic Kidney Disease: Less than 60 mL/min/1.73 square meters End Stage Renal Disease: Less than 15 mL/min/1.73 square meters Performed By: #### G , BMP #### [facility] [address] [place] [address] GFR Non- 19 ml/min/1.73sqm Normal [facility] ([place]) Comment on above: Result Comment: GFR Population mean for , Non- Americans Ages 20-29 = 116 mL/min/1.73 sq.m. Ages 30-39 = 107 mL/min/1.73 sq.m. Ages 40-49 = 99 mL/min/1.73 sq.m. Ages 50-59 = 93 mL/min/1.73 sq.m. Ages 60-69 = 85 mL/min/1.73 sq.m. Ages 70+ = 75 mL/min/1.73 sq.m. Chronic Kidney Disease: Less than 60 mL/min/1.73 square meters End Stage Renal Disease: Less than 15 mL/min/1.73 square meters Performed By: #### Mell MACK, BMP #### [address] [address] BMPon 10-05-2022 BUN/Creatinine Ratio 17.3 ratio Normal 10.0-22.0 [facility] ([place]) Comment on above: Performed By: #### Mell MACK, BMP #### [address] [address] Calcium [Mass/Vol] 8.9 mg/dL Normal 8.7-10.4 [facility] [place] Comment [place]: Performed By: #### Mell MACK, BMP #### [address] [address] Chloride [Moles/Vol] 110 mmol/L Normal 98-110 [facility] ([place]) Comment on above: Performed By: #### Mell MACK, BMP #### [address] [address] CO2 [Moles/Vol] 27 mmol/L Normal 22-32 [facility] ([place]) Comment on above: Performed By: #### Mell MACK, BMP #### [address] [address] Creatinine [Mass/Vol] 3.18 mg/dL High 0.60-1.40 [facility] [place] Comment on above: Performed By: #### Mell MACK, BMP #### [address] [address] Electrolyte Balance 4.0 mEq/L Normal 4.0-15.0 [facility] ([place]) Comment on above: Performed By: #### Mell MACK, BMP #### [address] [address] Glucose [Mass/Vol] 117 mg/dL High 82-115 [facility] [place] Comment [place]: Performed By: #### G , BMP #### [address] [address] Potassium [Moles/Vol] 5.2 mmol/L High 3.5-5.0 [facility] [place] Comment on above: Performed By: #### Mell MACK, BMP #### [address] [address] Sodium [Moles/Vol] 141 mmol/L Normal 136-145 [facility] [place] Comment on above: Performed By: #### Mell MACK, BMP #### [address] [address] Urea nitrogen [Mass/Vol] 55.0 mg/dL High 8.0-22.0 [facility] ([place]) Comment on above: Performed By: #### Mell MACK, BMP #### [address] [address] LABORATORYOrdered By: Janet Samuel on 10-05-2022 Glucose [Mass/Vol] 176 mg/dL Invalid Interpretation Code 82 - 115 mg/dL [facility] Work Phone: LABORATORYOrdered By: SYSTEM SYSTEM on 10-05-2022 Calcium [Mass/Vol] 8.9 mg/dL Invalid Interpretation Code 8.7 - 10.4 mg/dL ADM SS Chloride [Moles/Vol] 110 mmol/L Invalid Interpretation Code 98 - 110 mEq/L ADM SS CO2 [Moles/Vol] 27 mmol/L Invalid Interpretation Code 22 - 32 mEq/L ADM SS Creatinine [Mass/Vol] 3.18 mg/dL Invalid Interpretation Code 0.60 - 1.40 mg/dL ADM SS Electrolyte Balance 4.0 mEq/L Invalid Interpretation Code 4.0 - 15.0 mEq/L AH ADM SS GFR/1.73 sq M.predicted among blacks MDRD (S/P/Bld) [Vol rate/Area] 23 ml/min/1.73sqm Invalid Interpretation Code AH Chemistry S GFR/1.73 sq M.predicted among non-blacks MDRD (S/P/Bld) [Vol rate/Area] 19 ml/min/1.73sqm Invalid Interpretation Code Chemistry S Glucose [Mass/Vol] 117 mg/dL Invalid Interpretation Code 82 - 115 mg/dL ADM SS Potassium [Moles/Vol] 5.2 mmol/L Invalid Interpretation Code 3.5 - 5.0 mEq/L ADM SS Sodium [Moles/Vol] 141 mmol/L Invalid Interpretation Code 136 - 145 mEq/L ADM SS Urea nitrogen [Mass/Vol] 55.0 mg/dL Invalid Interpretation Code 8.0 - 22.0 mg/dL ADM SS Urea nitrogen/Creatinine [Mass ratio] 17.3 ratio Invalid Interpretation Code 10.0 - 22.0 ratio ADM SS LABORATORYOrdered By: Jeanette Rose on 10-05-2022 Blood Glucose Testing Reason Routine (10/05/22 8:01 AM) [facility] Work Phone: Glucose [Mass/Vol] 126 mg/dL Invalid Interpretation Code 82 - 115 mg/dL [facility] Work Phone: .Auto Diffon 10-04-2022 Basophil, Absolute 0.1 10 3/mcL Normal 0.0-0.3 [facility] ([place]) Comment on above: Performed By: #### Mell MACK, BMP #### [address] [address] Basophils/100 WBC (Bld) 1.4 % Normal 0.0-2.5 [facility] ([place]) Comment on above: Performed By: #### G , BMP #### [address] [address] Eosinophil, Absolute 0.4 10 3/mcL Normal 0.0-0.7 [facility] ([place]) Comment on above: Performed By: #### G FR, BMP #### [address] [address] Eosinophils/100 WBC (Bld) 7.4 % High 0.0-6.0 [facility] ([place]) Comment on above: Performed By: #### G FR, BMP #### [address] [address] Lymphocyte, Absolute 0.8 10 3/mcL Low 0.9-4.3 [facility] ([place]) Comment on above: Performed By: #### G FR, BMP #### [address] [address] Lymphocytes/100 WBC (Bld) 16.0 % Low 20.0-40.0 [facility] ([place]) Comment on above: Performed By: #### G FR, BMP #### [address] [address] Monocyte, Absolute 0.7 10 3/mcL Normal 0.1-1.4 [facility] ([place]) Comment on above: Performed By: #### G FR, BMP #### [address] [address] Monocytes/100 WBC (Bld) 14.6 % High 2.0-13.0 [facility] ([place]) Comment on above: Performed By: #### G FR, BMP #### [address] [address] Neutrophils/100 WBC (Bld) 60.6 % Normal 50.0-75.0 [facility] ([place]) Comment on above: Performed By: #### G FR, BMP #### [address] [address] .GFRon 10-04-2022 GFR 23 ml/min/1.73sqm Normal [facility] ([place]) Comment on above: Result Comment: GFR Population mean for , Non- Americans Ages 20-29 = 116 mL/min/1.73 sq.m. Ages 30-39 = 107 mL/min/1.73 sq.m. Ages 40-49 = 99 mL/min/1.73 sq.m. Ages 50-59 = 93 mL/min/1.73 sq.m. Ages 60-69 = 85 mL/min/1.73 sq.m. Ages 70+ = 75 mL/min/1.73 sq.m. Chronic Kidney Disease: Less than 60 mL/min/1.73 square meters End Stage Renal Disease: Less than 15 mL/min/1.73 square meters Performed By: #### G FR, BMP #### [address] [address] GFR Non- 19 ml/min/1.73sqm Normal [facility] ([place]) Comment on above: Result Comment: GFR Population mean for , Non- Americans Ages 20-29 = 116 mL/min/1.73 sq.m. Ages 30-39 = 107 mL/min/1.73 sq.m. Ages 40-49 = 99 mL/min/1.73 sq.m. Ages 50-59 = 93 mL/min/1.73 sq.m. Ages 60-69 = 85 mL/min/1.73 sq.m. Ages 70+ = 75 mL/min/1.73 sq.m. Chronic Kidney Disease: Less than 60 mL/min/1.73 square meters End Stage Renal Disease: Less than 15 mL/min/1.73 square meters Performed By: #### Mell MACK, BMP #### [address] [address] .NEUABSon 10-04-2022 Neutrophil, Absolute 2.9 10 3/mcL Normal 2.3-8.1 [facility] ([place] Comment on above: Performed By: #### Mell MACK, BMP #### [address] [address] [facility] BUN/Creatinine Ratio 16.5 ratio Normal 10.0-22.0 [facility] ([place]) Comment on above: Performed By: #### Mell MACK, BMP #### [address] [address] Calcium [Mass/Vol] 9.3 mg/dL Normal 8.7-10.4 [facility] [place] Comment on above: Performed By: #### Mell MACK, BMP #### [address] [address] Chloride [Moles/Vol] 110 mmol/L Normal 98-110 [facility] ([place]) Comment on above: Performed By: #### Mell MACK, BMP #### [address] [address] CO2 [Moles/Vol] 27 mmol/L Normal 22-32 [facility] ([place]) Comment on above: Performed By: #### G , BMP #### [address] [address] Creatinine [Mass/Vol] 3.22 mg/dL High 0.60-1.40 [facility] [place] Comment on above: Performed By: #### Mell MACK, BMP #### [address] [address] Electrolyte Balance 5.0 mEq/L Normal 4.0-15.0 [facility] ([place]) Comment on above: Performed By: #### G , BMP #### [address] [address] Glucose [Mass/Vol] 71 mg/dL Low 82-115 [facility] [place] Comment [place] above: Performed By: #### Mell MACK, BMP #### [address] [address] Potassium [Moles/Vol] 5.0 mmol/L Normal 3.5-5.0 [facility] [place] Comment on above: Result Comment: Spec imen slightly hemolyzed. Performed By: #### Mell MACK, BMP #### [address] [address] Sodium [Moles/Vol] 142 mmol/L Normal 136-145 [facility] [place] Comment on above: Performed By: #### Mell MACK, BMP #### [address] [address] Urea nitrogen [Mass/Vol] 53.0 mg/dL High 8.0-22.0 [facility] ([place]) Comment on above: Performed By: #### Mell MACK, BMP #### [address] [address] CBCon 10-04-2022 Erythrocyte distribution width (RBC) [Ratio] 14.9 % Normal 11.5-15.5 [facility] ([place]) Comment on above: Performed By: #### Mell MACK, BMP #### [address] [address] Hematocrit (Bld) [Volume fraction] 39.1 % Low 40.0-52.0 [facility] ([place]) Comment on above: Performed By: #### G FR, BMP #### [place] [address] Hgb 12.5 G/dL Low 13.0-17.5 [facility] ([place]) Comment on above: Performed By: #### G FR, BMP #### [place] [address] MCH (RBC) [Entitic mass] 31.9 pg Normal 27.0-33.0 [facility] ([place]) Comment on above: Performed By: #### Mell FR, BMP #### [place] [address] MCHC 32.1 G/dL Normal 32.0-36.0 [facility] ([place]) Comment on above: Performed By: #### Mell MACK, BMP #### [place] [address] MCV (RBC) [Entitic vol] 99.5 fL Normal 81.0-100.0 [facility] ([place]) Comment on above: Performed By: #### Mell FR, BMP #### [place] [address] Platelet 145 10 3/mcL Low 150-450 [facility] ([place]) Comment on above: Performed By: #### Mell FR, BMP #### [place] [address] Platelet mean volume (Bld) [Entitic vol] 8.4 fL Normal 6.4-10.5 [facility] ([place]) Comment on above: Performed By: #### G FR, BMP #### [place] [address] RBC 3.93 10 6/mcL Low 4.50-6.00 [facility] ([place]) Comment on above: Performed By: #### G FR, BMP #### [place] [address] WBC 4.8 10 3/mcL Normal 4.5-10.8 [facility] ([place]) Comment on above: Performed By: #### G FR, BMP #### [facility] [address] [place] [address] LABORATORYOrdered By: Radha Bhatt on 10-04-2022 Glucose [Mass/Vol] 139 mg/dL Invalid Interpretation Code 82 - 115 mg/dL [facility] Work Phone: LABORATORYOrdered By: SYSTEM SYSTEM on 10-04-2022 Basophils (Bld) [#/Vol] 0.1 103/mcL Invalid Interpretation Code 0.0 - 0.3 10^3/mcL Workflow SS Basophils/100 WBC (Bld) 1.4 % Invalid Interpretation Code 0.0 - 2.5 % Workflow SS Calcium [Mass/Vol] 9.3 mg/dL Invalid Interpretation Code 8.7 - 10.4 mg/dL ADM SS Chloride [Moles/Vol] 110 mmol/L Invalid Interpretation Code 98 - 110 mEq/L ADM SS CO2 [Moles/Vol] 27 mmol/L Invalid Interpretation Code 22 - 32 mEq/L ADM SS Creatinine [Mass/Vol] 3.22 mg/dL Invalid Interpretation Code 0.60 - 1.40 mg/dL ADM SS Electrolyte Balance 5.0 mEq/L Invalid Interpretation Code 4.0 - 15.0 mEq/L ADM SS Eosinophils (Bld) [#/Vol] 0.4 103/mcL Invalid Interpretation Code 0.0 - 0.7 10^3/mcL AH Workflow SS Eosinophils/100 WBC (Bld) 7.4 % Invalid Interpretation Code 0.0 - 6.0 % AH Workflow SS Erythrocyte distribution width (RBC) [Ratio] 14.9 % Invalid Interpretation Code 11.5 - 15.5 % AH Workflow SS GFR/1.73 sq M.predicted among blacks MDRD (S/P/Bld) [Vol rate/Area] 23 ml/min/1.73sqm Invalid Interpretation Code Chemistry S GFR/1.73 sq M.predicted among non-blacks MDRD (S/P/Bld) [Vol rate/Area] 19 ml/min/1.73sqm Invalid Interpretation Code Chemistry S Glucose [Mass/Vol] 71 mg/dL Invalid Interpretation Code 82 - 115 mg/dL ADM SS Hematocrit (Bld) [Volume fraction] 39.1 % Invalid Interpretation Code 40.0 - 52.0 % Workflow SS Hemoglobin (Bld) [Mass/Vol] 12.5 G/dL Invalid Interpretation Code 13.0 - 17.5 G/dL AH Workflow SS Lymphocytes (Bld) [#/Vol] 0.8 103/mcL Invalid Interpretation Code 0.9 - 4.3 10^3/mcL AH Workflow SS Lymphocytes/100 WBC (Bld) 16.0 % Invalid Interpretation Code 20.0 - 40.0 % AH Workflow SS MCH (RBC) [Entitic mass] 31.9 pg Invalid Interpretation Code 27.0 - 33.0 pg AH Workflow SS MCHC 32.1 G/dL Invalid Interpretation Code 32.0 - 36.0 G/dL AH Workflow SS MCV (RBC) [Entitic vol] 99.5 fL Invalid Interpretation Code 81.0 - 100.0 fL Workflow SS Monocytes (Bld) [#/Vol] 0.7 103/mcL Invalid Interpretation Code 0.1 - 1.4 10^3/mcL AH Workflow SS Monocytes/100 WBC (Bld) 14.6 % Invalid Interpretation Code 2.0 - 13.0 % Workflow SS Neutrophils (Bld) [#/Vol] 2.9 103/mcL Invalid Interpretation Code 2.3 - 8.1 10^3/mcL AH Workflow SS Neutrophils/100 WBC (Bld) 60.6 % Invalid Interpretation Code 50.0 - 75.0 % Workflow SS Platelet mean volume (Bld) [Entitic vol] 8.4 fL Invalid Interpretation Code 6.4 - 10.5 fL Workflow SS Platelets (Bld) [#/Vol] 145 103/mcL Invalid Interpretation Code 150 - 450 10^3/mcL Workflow SS Potassium [Moles/Vol] 5.0 mmol/L Invalid Interpretation Code 3.5 - 5.0 mEq/L ADM SS Comment on above: Result Comment: Spec imen slightly hemolyzed. RBC (Bld) [#/Vol] 3.93 106/mcL Invalid Interpretation Code 4.50 - 6.00 10^6/mcL AH Workflow SS Sodium [Moles/Vol] 142 mmol/L Invalid Interpretation Code 136 - 145 mEq/L ADM SS Urea nitrogen [Mass/Vol] 53.0 mg/dL Invalid Interpretation Code 8.0 - 22.0 mg/dL ADM SS Urea nitrogen/Creatinine [Mass ratio] 16.5 ratio Invalid Interpretation Code 10.0 - 22.0 ratio AH ADM SS WBC (Bld) [#/Vol] 4.8 103/mcL Invalid Interpretation Code 4.5 - 10.8 10^3/mcL AH Workflow SS MYCOon 10-04-2022 Mycoplasma IgG Positive Normal [facility] ([place]) Comment on above: Result Comment: INTE RPRETATION OF MYCOPLASMA IgG BY EIA: Negative: No detectable M. pneumoniae IgG antibody. Positive: Mycoplasma pneumoniae IgG antibody Detected. Equivocal: Equivocal for IgG antibodies to Mycoplasma pneumoniae. Suggest repeat testing in 10-14 days. Performed By: #### G FR, BMP #### [address] [address] .Auto Diffon 10-03-2022 Basophil, Absolute 0.1 10 3/mcL Normal 0.0-0.3 [facility] ([place]) Comment on above: Performed By: #### B MP, ADIFF, CBC, ANEU, GFR #### [address] [address] Basophils/100 WBC (Bld) 1.2 % Normal 0.0-2.5 [facility] ([place]) Comment on above: Performed By: #### B MP, ADIFF, CBC, ANEU, GFR #### [address] [address] Eosinophil, Absolute 0.3 10 3/mcL Normal 0.0-0.7 [facility] ([place]) Comment on above: Performed By: #### B MP, ADIFF, CBC, ANEU, GFR #### [address] [address] Eosinophils/100 WBC (Bld) 6.1 % High 0.0-6.0 [facility] ([place]) Comment on above: Performed By: #### B MP, ADIFF, CBC, ANEU, GFR #### [address] [address] Lymphocyte, Absolute 0.8 10 3/mcL Low 0.9-4.3 [facility] ([place]) Comment on above: Performed By: #### B MP, ADIFF, CBC, ANEU, GFR #### [address] [address] Lymphocytes/100 WBC (Bld) 15.2 % Low 20.0-40.0 [facility] ([place]) Comment on above: Performed By: #### B MP, ADIFF, CBC, ANEU, GFR #### [address] [address] Monocyte, Absolute 0.6 10 3/mcL Normal 0.1-1.4 [facility] ([place]) Comment on above: Performed By: #### B MP, ADIFF, CBC, ANEU, GFR #### [address] [address] Monocytes/100 WBC (Bld) 11.4 % Normal 2.0-13.0 [facility] ([place]) Comment on above: Performed By: #### B MP, ADIFF, CBC, ANEU, GFR #### [address] [address] Neutrophils/100 WBC (Bld) 66.1 % Normal 50.0-75.0 [facility] ([place]) Comment on above: Performed By: #### B MP, ADIFF, CBC, ANEU, GFR #### [address] [address] .GFRon 10-03-2022 GFR 23 ml/min/1.73sqm Normal [facility] ([place]) Comment on above: Result Comment: GFR Population mean for , Non- Americans Ages 20-29 = 116 mL/min/1.73 sq.m. Ages 30-39 = 107 mL/min/1.73 sq.m. Ages 40-49 = 99 mL/min/1.73 sq.m. Ages 50-59 = 93 mL/min/1.73 sq.m. Ages 60-69 = 85 mL/min/1.73 sq.m. Ages 70+ = 75 mL/min/1.73 sq.m. Chronic Kidney Disease: Less than 60 mL/min/1.73 square meters End Stage Renal Disease: Less than 15 mL/min/1.73 square meters Performed By: #### B MP, ADIFF, CBC, ANEU, GFR #### [address] [address] GFR Non- 19 ml/min/1.73sqm Normal [facility] ([place]) Comment on above: Result Comment: GFR Population mean for , Non- Americans Ages 20-29 = 116 mL/min/1.73 sq.m. Ages 30-39 = 107 mL/min/1.73 sq.m. Ages 40-49 = 99 mL/min/1.73 sq.m. Ages 50-59 = 93 mL/min/1.73 sq.m. Ages 60-69 = 85 mL/min/1.73 sq.m. Ages 70+ = 75 mL/min/1.73 sq.m. Chronic Kidney Disease: Less than 60 mL/min/1.73 square meters End Stage Renal Disease: Less than 15 mL/min/1.73 square meters Performed By: #### B MP, ADIFF, CBC, ANEU, GFR #### [address] [address] .NEUABSon 10-03-2022 Neutrophil, Absolute 3.4 10 3/mcL Normal 2.3-8.1 On license of [facility]) Comment on above: Performed By: #### B MP, ADIFF, CBC, ANEU, GFR #### [address] [address] BMPon 10-03-2022 BUN/Creatinine Ratio 16.4 ratio Normal 10.0-22.0 [facility] ([place]) Comment on above: Order Comment: Routi ne for 0501 the morning of patient admission. Performed By: #### B MP, ADIFF, CBC, ANEU, GFR #### [address] [address] Calcium [Mass/Vol] 9.7 mg/dL Normal 8.7-10.4 [facility] [place] Comment on above: Order Comment: Routi ne for 0501 the morning of patient admission. Performed By: #### B MP, ADIFF, CBC, ANEU, GFR #### [address] [address] Chloride [Moles/Vol] 108 mmol/L Normal 98-110 [facility] ([place]) Comment on above: Order Comment: Routi ne for 0501 the morning of patient admission. Performed By: #### B MP, ADIFF, CBC, ANEU, GFR #### [address] [address] CO2 [Moles/Vol] 23 mmol/L Normal 22-32 [facility] ([place]) Comment on above: Order Comment: Routi ne for 0501 the morning of patient admission. Performed By: #### B MP, ADIFF, CBC, ANEU, GFR #### [address] [address] Creatinine [Mass/Vol] 3.23 mg/dL High 0.60-1.40 [facility] [place] Comment on above: Order Comment: Routi ne for 0501 the morning of patient admission. Performed By: #### B MP, ADIFF, CBC, ANEU, GFR #### [place] [id number] Electrolyte Balance 10.0 mEq/L Normal 4.0-15.0 [facility] ([place]) Comment on above: Order Comment: Routi ne for 0501 the morning of patient admission. Performed By: #### B MP, ADIFF, CBC, ANEU, GFR #### [address] [address] Glucose [Mass/Vol] 131 mg/dL High 82-115 [facility] [place] Comment on above: Order Comment: Routi ne for 0501 the morning of patient admission. Performed By: #### B MP, ADIFF, CBC, ANEU, GFR #### [address] [address] Potassium [Moles/Vol] 5.1 mmol/L High 3.5-5.0 [facility] [place] Comment on above: Order Comment: Routi ne for 0501 the morning of patient admission. Result Comment: Spec imen slightly hemolyzed. Performed By: #### B MP, ADIFF, CBC, ANEU, GFR #### [address] [address] Sodium [Moles/Vol] 141 mmol/L Normal 136-145 [facility] [place] Comment on above: Order Comment: Routi ne for 0501 the morning of patient admission. Performed By: #### B MP, ADIFF, CBC, ANEU, GFR #### [place] [address] Urea nitrogen [Mass/Vol] 53.0 mg/dL High 8.0-22.0 [facility] ([place]) Comment on above: Order Comment: Routi ne for 0501 the morning of patient admission. Performed By: #### B MP, ADIFF, CBC, ANEU, GFR #### [place] [address] CBCon 10-03-2022 Erythrocyte distribution width (RBC) [Ratio] 15.2 % Normal 11.5-15.5 [facility] ([place]) Comment on above: Order Comment: Routi ne for 0501 the morning of patient admission. Performed By: #### B MP, ADIFF, CBC, ANEU, GFR #### [place] [address] Hematocrit (Bld) [Volume fraction] 39.4 % Low 40.0-52.0 [facility] ([place]) Comment on above: Order Comment: Routi ne for 0501 the morning of patient admission. Performed By: #### B MP, ADIFF, CBC, ANEU, GFR #### [place] [address] Hgb 12.7 G/dL Low 13.0-17.5 [facility] ([place]) Comment on above: Order Comment: Routi ne for 0501 the morning of patient admission. Performed By: #### B MP, ADIFF, CBC, ANEU, GFR #### [place] [address] MCH (RBC) [Entitic mass] 31.9 pg Normal 27.0-33.0 [facility] ([place]) Comment on above: Order Comment: Routi ne for 0501 the morning of patient admission. Performed By: #### B MP, ADIFF, CBC, ANEU, GFR #### [place] [address] MCHC 32.1 G/dL Normal 32.0-36.0 [facility] ([place]) Comment on above: Order Comment: Routi ne for 0501 the morning of patient admission. Performed By: #### B MP, ADIFF, CBC, ANEU, GFR #### [place] [address] MCV (RBC) [Entitic vol] 99.2 fL Normal 81.0-100.0 [facility] ([place]) Comment on above: Order Comment: Routi ne for 0501 the morning of patient admission. Performed By: #### B MP, ADIFF, CBC, ANEU, GFR #### [place] [id number] Platelet 144 10 3/mcL Low 150-450 [facility] ([place]) Comment on above: Order Comment: Routi ne for 0501 the morning of patient admission. Performed By: #### B MP, ADIFF, CBC, ANEU, GFR #### [place] [address] Platelet mean volume (Bld) [Entitic vol] 8.7 fL Normal 6.4-10.5 [facility] ([place]) Comment on above: Order Comment: Routi ne for 0501 the morning of patient admission. Performed By: #### B MP, ADIFF, CBC, ANEU, GFR #### [place] [address] RBC 3.97 10 6/mcL Low 4.50-6.00 [facility] ([place]) Comment on above: Order Comment: Routi ne for 0501 the morning of patient admission. Performed By: #### B MP, ADIFF, CBC, ANEU, GFR #### [place] [address] WBC 5.1 10 3/mcL Normal 4.5-10.8 [facility] ([place]) Comment on above: Order Comment: Routi ne for 0501 the morning of patient admission. Performed By: #### B MP, ADIFF, CBC, ANEU, GFR #### [place] [address] LABORATORYOrdered By: SYSTEM SYSTEM on 10-03-2022 Basophils (Bld) [#/Vol] 0.1 103/mcL Invalid Interpretation Code 0.0 - 0.3 10^3/mcL AH Workflow SS Basophils/100 WBC (Bld) 1.2 % Invalid Interpretation Code 0.0 - 2.5 % Workflow SS Calcium [Mass/Vol] 9.7 mg/dL Invalid Interpretation Code 8.7 - 10.4 mg/dL ADM SS Chloride [Moles/Vol] 108 mmol/L Invalid Interpretation Code 98 - 110 mEq/L ADM SS CO2 [Moles/Vol] 23 mmol/L Invalid Interpretation Code 22 - 32 mEq/L ADM SS Creatinine [Mass/Vol] 3.23 mg/dL Invalid Interpretation Code 0.60 - 1.40 mg/dL ADM SS Electrolyte Balance 10.0 mEq/L Invalid Interpretation Code 4.0 - 15.0 mEq/L ADM SS Eosinophils (Bld) [#/Vol] 0.3 103/mcL Invalid Interpretation Code 0.0 - 0.7 10^3/mcL Workflow SS Eosinophils/100 WBC (Bld) 6.1 % Invalid Interpretation Code 0.0 - 6.0 % Workflow SS Erythrocyte distribution width (RBC) [Ratio] 15.2 % Invalid Interpretation Code 11.5 - 15.5 % Workflow SS GFR/1.73 sq M.predicted among blacks MDRD (S/P/Bld) [Vol rate/Area] 23 ml/min/1.73sqm Invalid Interpretation Code Chemistry S GFR/1.73 sq M.predicted among non-blacks MDRD (S/P/Bld) [Vol rate/Area] 19 ml/min/1.73sqm Invalid Interpretation Code Chemistry S Glucose [Mass/Vol] 131 mg/dL Invalid Interpretation Code 82 - 115 mg/dL ADM SS Hematocrit (Bld) [Volume fraction] 39.4 % Invalid Interpretation Code 40.0 - 52.0 % Workflow SS Hemoglobin (Bld) [Mass/Vol] 12.7 G/dL Invalid Interpretation Code 13.0 - 17.5 G/dL Workflow SS Lymphocytes (Bld) [#/Vol] 0.8 103/mcL Invalid Interpretation Code 0.9 - 4.3 10^3/mcL Workflow SS Lymphocytes/100 WBC (Bld) 15.2 % Invalid Interpretation Code 20.0 - 40.0 % Workflow SS MCH (RBC) [Entitic mass] 31.9 pg Invalid Interpretation Code 27.0 - 33.0 pg Workflow SS MCHC 32.1 G/dL Invalid Interpretation Code 32.0 - 36.0 G/dL AH Workflow SS MCV (RBC) [Entitic vol] 99.2 fL Invalid Interpretation Code 81.0 - 100.0 fL AH Workflow SS Monocytes (Bld) [#/Vol] 0.6 103/mcL Invalid Interpretation Code 0.1 - 1.4 10^3/mcL AH Workflow SS Monocytes/100 WBC (Bld) 11.4 % Invalid Interpretation Code 2.0 - 13.0 % AH Workflow SS Neutrophils (Bld) [#/Vol] 3.4 103/mcL Invalid Interpretation Code 2.3 - 8.1 10^3/mcL AH Workflow SS Neutrophils/100 WBC (Bld) 66.1 % Invalid Interpretation Code 50.0 - 75.0 % AH Workflow SS Platelet mean volume (Bld) [Entitic vol] 8.7 fL Invalid Interpretation Code 6.4 - 10.5 fL AH Workflow SS Platelets (Bld) [#/Vol] 144 103/mcL Invalid Interpretation Code 150 - 450 10^3/mcL AH Workflow SS Potassium [Moles/Vol] 5.1 mmol/L Invalid Interpretation Code 3.5 - 5.0 mEq/L ADM SS Comment on above: Result Comment: Spec imen slightly hemolyzed. RBC (Bld) [#/Vol] 3.97 106/mcL Invalid Interpretation Code 4.50 - 6.00 10^6/mcL AH Workflow SS Sodium [Moles/Vol] 141 mmol/L Invalid Interpretation Code 136 - 145 mEq/L ADM SS Urea nitrogen [Mass/Vol] 53.0 mg/dL Invalid Interpretation Code 8.0 - 22.0 mg/dL ADM SS Urea nitrogen/Creatinine [Mass ratio] 16.4 ratio Invalid Interpretation Code 10.0 - 22.0 ratio AH ADM SS WBC (Bld) [#/Vol] 5.1 103/mcL Invalid Interpretation Code 4.5 - 10.8 10^3/mcL Workflow SS MRSAPCRon 10-03-2022 MRSA (PCR) Not detected Normal Not Detected [facility] ([place]) Comment on above: Result Comment: [place] [id number] Performed By: #### G FR, BMP #### [place] [address] MRSA PCR Int Normal [facility] ([place]) Comment on above: Result Comment: MRSA DNA not detected by Real-Time Polymerase Chain Reaction (PCR). A negative result may be due to intermittent colonization. Colonization may vary depending on patient treatment, patient status, or exposure to high-risk environments. As with all PCR based in vitro diagnostic tests, extremely low levels of target below the limit of detection of the assay may be detected, but results may not be reproducible. See Below Performed By: #### G FR, BMP #### [place] [address] MYCOon 10-03-2022 Mycoplasma IgM Negative Normal [facility] ([place]) Comment on above: Result Comment: INTE RPRETATION OF MYCOPLASMA IgM: Negative: IgM to M. pneumoniae Absent, or at levels below the assay limit of detection. Positive: IgM to M. pneumoniae Present. Invalid: Test results are invalid due to invalid internal control. Assay was performed in duplicate. Repeat testing is suggested if clinically indicated. Performed By: #### G , BMP #### [place] [address] LABORATORYOrdered By: Laz Gaytan on 10-02-2022 MRSA DNA DOM+probe Ql (Unsp spec) Not Detected 1 (10/02/22 10:48 PM) Invalid Interpretation Code Not Detected Auto Viro/Sero SS Comment on above: Result Comment: [place] s [id number] MRSA PCR Int MRSA DNA not detecte d by Real-Time Polymerase Chain Reaction (PCR). A negative result may be due to intermittent colonization. Colonization may vary depending on patient treatment, patient status, or exposure to high-risk environments.As with all PCR based in vitro diagnostic tests, extremely low levels of target below the limit of detection of the assay may be detected, but results may not be reproducible. Invalid Interpretation Code Auto Viro/Sero SS LABORATORYOrdered By: Ivan Edmond on 10-02-2022 M. pneumoniae IgM IA Ql (S) Negative (10/02/22 10:04 PM) Invalid Interpretation Code Man Viro/Sero SS Mycoplasma IgG Positive *NA* (10/02/22 10:04 PM) Invalid Interpretation Code Auto Viro/Sero SS No Panel Informationon 10-02 Legionella Urine Ag Presumptive negative for L. pneumophila serogroup 1 antigen in urine, suggesting no recent or current infection. Legionnaire's disease cannot be ruled out since other serogroups and species may also cause disease. [facility] Work Phone: Streptococcus Pneumoniae Urine Antig Presumptive negative for pneumococcal pneumonia, suggesting no current or recent pneumococcal infection. Infection due to Strep pneumoniae cannot be ruled out since the antigen present in the sample may be below the detection limit of the test. [facility] Work Phone: Comment on above: This test has not be en evaluated on patients taking antibiotics for greater than 24 hours or on patients who have recently completed an antibiotic regimen. The accuracy of this test has not been proven in young children. PTH, [place] 08-31-2021 PTH, Intact 86 pg/mL High 15-65 [facility] Comment on above: Performed By: #### P THI #### [facility] Laboratories Routine Lab [address] [place], [place] [address] CDLECHOon 03-18-2021 [facility] [id number] CLI ECHOCARD ECHOCARDIOGRAM [place] [address] Noninvasive Cardiac Diagnostics Adult Echocardiogram Report Name: PETE CONLEY EStudy Date: 03/18/2021 08:22 AM BP: 156/70 mmHg [facility] 1950 Gender: Male Height: 69 in Age: 71 yrs Ethnicity: [place] Weight: 260 lb Accession No. [id number] Account No. [id number] Reason For Study: SOB BSA: 2.3 m2 History: Dyspnea or SOB,Former smoker Interpretation Summary RN unavailable for Definity suboptimal study w/o contrast Ejection Fraction = 50-55%. There is moderate concentric left ventricular hypertrophy. A full diastolic examination was done with clinical findings of Class I diastolic dysfunction. The left atrium is mildly dilated. There is mild aortic sclerosis.; There is mild to moderate mitral regurgitation. There is mild tricuspid regurgitation. borderline to mild PHT Procedure Details: A two-dimensional transthoracic echocardiogram with color flow and Doppler was performed. suboptimal study w/o contrast. Study Quality: Fair. Left Ventricle: The left ventricular size, thickness and function are normal. There is moderate concentric left ventricular [facility] PATIENT NAME: PETE CONLEY [facility] [address] MEDICAL REC #: [id number] [place] [address] ADMIT DATE: DISCHARGE DATE: ATTENDING PHY: Joceline Lovell ECHOCARDIOGRAM REPORT hypertrophy. Ejection Fraction = 50-55%. A full diastolic examination was done with clinical findings of Class I diastolic dysfunction. Left Atrium/Atrial Septum: The left atrium is mildly dilated. Right Atrium: Right atrial size is normal. Right Ventricle: The right ventricle is normal in size and function. Aortic Valve: There is mild aortic sclerosis.;. Mitral Valve: The mitral valve is normal in structure and function. There is mild to moderate mitral regurgitation. Tricuspid Valve: The tricuspid valve is normal in structure and function. There is mild tricuspid regurgitation. borderline to mild PHT. Pulmonic Valve: Structurally normal pulmonic valve. Arteries: The aortic root is normal size. Pericardium/Pleura: There is no pericardial effusion. MMode/2D Measurements and Calculations IVSd: 1.4 cm LVIDd: IVS/LVPW: EDV(cubed): IVSs: 1.6 cm 5.2 cm 1.1 141.6 ml LVIDs: FS: 37.4 % ESV(cubed): 3.3 cm EF(Teich): 34.8 ml LVPWd: 67.0 % EF(cubed): 1.2 cm 75.5 % LVPWs: % IVS thick: 1.8 cm 16.1 % % LVPW thick: 44.4 % LV mass(C)d: SV(Teich): MV excursion:Ao root 283.9 grams 87.3 ml 1.8 cm diam: 3.4 cm [facility] PATIENT NAME: PETE CONLEY [address] [facility] [address] MEDICAL REC #: [id number] [place] [address] ADMIT DATE: DISCHARGE DATE: ATTENDING PHY: Joceline Lovell ECHOCARDIOGRAM REPORT LV mass(C)dI: SI(Teich): MV E-F slope:Ao root 123.0 grams/m2 37.8 ml/m2 8.2 cm/sec area: LV mass(C)s: SV(cubed): 9.1 cm2 217.8 grams 106.9 ml ACS: 2.3 cm LV mass(C)sI: SI(cubed): LA 94.4 grams/m2 46.3 ml/m2 dimension: 4.1 cm LA/Ao: 1.2 EF(MOD-sp4): SI(MOD-sp4): LVOT diam: 2.1 cm56.6 % 33.8 ml/m2 Time Measurements Aortic R-R: 0.93 sec Aortic HR: 64.4 BPM Doppler Measurements and Calculations MV E max jaguar: MV max PG: MV dec Ao V2 max: 80.3 cm/sec 4.4 mmHg time: 158.0 cm/sec MV A max jaguar: MV mean P.27 sec Ao max P.7 cm/sec 1.9 mmHg 10.0 mmHg MV E/A: 0.86 MVA(VTI): Ao max PG 2.0 cm2 (full): 6.9 mmHg Ao mean P.7 mmHg Ao mean PG (full): 3.0 mmHg Ao V2 VTI: 37.3 cm ELIGIO(I,A): 1.9 cm2 ELIGIO(I,D): 1.9 cm2 ELIGIO(V,A): 1.9 cm2 ELIGIO(V,D): 1.9 cm2 LV V1 max: CO(Ao): PA max PG: RAP systole: 88.1 cm/sec 21.8 l/min 1.5 mmHg 10.0 mmHg LV V1 mean: CI(Ao): 60.8 cm/sec LV V1 VTI: 9.5 l/min/m2 21.3 cm SV(Ao): 339.0 ml [facility] PATIENT NAME: PETE CONLEY Carey Lucio. MEDICAL REC #: [id number] [place] [address] ADMIT DATE: DISCHARGE DATE: ATTENDING PHY: Joceline Lovell ECHOCARDIOGRAM REPORT SI(Ao): 146.9 ml/m2 CO(LVOT): 4.6 l/min CI(LVOT): 2.0 l/min/m2 SI(LVOT): 30.9 ml/m2 Lateral E/E': Medial E/E': 7.9 11.6 Pediatric Measurements and Calculations Lat Peak E' Jaguar: 10.2 cm/secMed Peak E' Jaguar: 6.9 cm/sec Reviewed/Verified By: Deanne Camejo MD 03/19/2021 09:28 AM Ordering Physician: Joceline Lovell Referring Physician: MOI Performed By: 14 CC: Joceline Lovell [facility] PATIENT NAME: PETE CONLEY Carey Lucio (more content not included)... Normal [facility] ECHOCARDIOGRAM REPORT Normal [facility] BMPon 02-04-2021 Anion gap [Moles/Vol] 12.2 mmol/L Low 15-22 [facility] Comment on above: Performed By: #### L 100.0010 #### [facility] [address] [place] [address] Calcium [Mass/Vol] 9.3 mg/dL Normal 8.8-10.2 [facility] Comment on above: Performed By: #### L 100.0010 #### ML - LABORATORY [address] [place] [address] Chloride [Moles/Vol] 102 mmol/L Normal 98-107 [facility] Comment on above: Performed By: #### L 100.0010 #### ML - LABORATORY [address] [place] [address] CO2 [Moles/Vol] 24 mmol/L Normal 22-29 [facility] Comment on above: Performed By: #### L 100.0010 #### ML - LABORATORY [address] [place] [address] Creatinine [Mass/Vol] 1.78 mg/dL High 0.70-1.20 [facility] Comment on above: Performed By: #### L 100.0010 #### ML [facility] [address] [place] [address] 09902 eGFR if AFR JOSSELIN 46 [facility] Comment on above: Result Comment: eGFR >= 60 Indicates normal kidney function. * eGFR IS AN ESTIMATE * (AFR JOSSELIN = ) (non-AFR AM = NON-) MDRD calculation used in the eGFR should not be used to dose medications. For further limitations of the eGFR please refer to the Physician Website or the National Kidney Disease Education Program website (www.nkdep.nih.gov). Performed By: #### L 100.0010 #### ML - LABORATORY [address] [place] [address] 33705 eGFR nonAFR Josselin 38 [facility] Comment on above: Performed By: #### L 100.0010 #### ML - LABORATORY [address] [place] [address]51 Glucose [Mass/Vol] 242 mg/dL High 82-115 [facility] Comment on above: Performed By: #### L 100.0010 #### ML [facility] [address] [place] [address] Potassium [Moles/Vol] 5.2 mmol/L High 3.5-5.0 [facility] Comment on above: Performed By: #### L 100.0010 #### ML - LABORATORY [address] [place] [address] 11872 Sodium [Moles/Vol] 133 mmol/L Low 135-145 [facility] Comment on above: Performed By: #### L 100.0010 #### ML - LABORATORY [address] [place] [address] Urea nitrogen [Mass/Vol] 43 mg/dL High 8-23 [facility] Comment on above: Performed By: #### L 100.0010 #### ML - LABORATORY [address] [place] [address] PRO-BNPon 02-04-2021 Natriuretic peptide B (Bld) [Mass/Vol] 1048 pg/mL Normal [facility] Comment on above: Result Comment: HF U NLIKELY: NT-PRO BNP <300 pg/mL HF LIKELY: NT-PRO BNP >450 pg/mL (AGE <50) NT-PRO BNP >900 pg/mL (AGE 50-75) NT-PRO BNP >1800 pg/mL (AGE >75) HF VERY LIKELY: NT-PRO BNP >10,000 pg/mL SOURCE: [employer]IDE [employer]M FOR PRO-BNP; CRITICAL PATHWAYS IN CARDIOLOGY VOLUME 3, NUMBER 4; JULY 2004 Performed By: #### L 301.0460 #### ML - LABORATORY [address] [place] [address] PTH, [place] 12-03-2020 PTH, Intact 62 pg/mL Normal 15-65 [facility] Comment on above: Performed By: #### P THI #### [facility] Laboratories Routine Lab [address] [place], [place] [address] BASIC METABOLIC PANELon 08-20 Calcium mass conc 8.6 mg/dL 8.4 - 10.2 mg/dL [facility] [place] Chloride molar conc 106 mmol/L [facility] [place] CO2 molar conc 22 mmol/L [facility] [facility] [place] Creatinine mass conc 1.9 mg/dL High 0.4 - 1 .1 mg/dL [facility] GFR/1.73 sq M.predicted MDRD vol rate/area 36 mL/min/{1.73_m2} [facility] Comment on above: Estimated Glomerular filtration Rate Reference Ranges: GFR, mL/min/1.73m2 >= 60 Adequate 30 - 59 Moderately decreased GFR 15 - 29 Severely decreased GFR <18 Kidney failure (or dialysis) GFR calculated using abbreviated MDRD formula. MDRD equation not suitable for patients who are under 18, have unstable creatinine concentrations Glucose mass conc 222 mg/dL High 70 - 126 mg/dL [facility] Interpretation and review of laboratory results Abnormal [facility] Potassium molar conc 4.4 mmol/L [facility] Sodium molar conc 135 mmol/L Low [facility] [place] Urea nitrogen mass conc 58 mg/dL High 7 - 22 mg/dL [facility] Basic Metabolic Profile (Ran dom)on 09-05-2018 Calcium [Mass/Vol] 8.6 mg/dL Normal 8.4-10.2 [facility] Comment on above: Performed By: #### 1 [id number], [id number] #### [facility] [address] [place] [address] Chloride [Moles/Vol] 106 mmol/L Normal 98-107 [facility] Comment on above: Performed By: #### 1 [id number], [id number] #### [facility] [address] [place] [address] CO2 [Moles/Vol] 22 mmol/L Normal 22-31 [facility] Comment on above: Performed By: #### 1 [id number], [id number] #### [facility] [address] [place] [address] Creatinine [Mass/Vol] 1.9 mg/dL High 0.4-1.1 [facility] Comment on above: Performed By: #### 1 [id number], [id number] #### [facility] [address] [place] [address] GFR/1.73 sq M predicted among non-blacks MDRD (S/P/Bld) [Vol rate/Area] 36 mL/min/{1.73_m2} Normal [facility] Comment on above: Result Comment: Maggy mated Glomerular filtration Rate Reference Ranges: GFR, mL/min/1.73m2 >= 60 Adequate 30 - 59 Moderately decreased GFR 15 - 29 Severely decreased GFR <18 Kidney failure (or dialysis) GFR calculated using abbreviated MDRD formula. MDRD equation not suitable for patients who are under 18, have unstable creatinine concentrations Performed By: #### 1 [id number], [id number] #### [facility] [address] [place] [address] Glucose [Mass/Vol] 222 mg/dL High 70-126 [facility] Comment on above: Performed By: #### 1 [id number], [id number] #### [facility] [address] [place] [address] Potassium [Moles/Vol] 4.4 mmol/L Normal 3.5-5.1 [facility] Comment on above: Performed By: #### 1 [id number], [id number] #### [facility] [address] [place] [address] Sodium [Moles/Vol] 135 mmol/L Low 136-145 [facility] Comment on above: Performed By: #### 1 [id number], [id number] #### [facility] [address] [place] [address] Urea nitrogen [Mass/Vol] 58 mg/dL High 7-22 [facility] Comment on above: Performed By: #### 1 [id number], [id number] #### [facility] [address] [place] [address] CBC, EDIF, PLATELETon 2018 Basophils/100 WBC (Bld) 0.8 % 0 - 3 % [facility] Eosinophils/100 WBC (Bld) 1.9 % 0 - 4 % [facility] Erythrocyte distribution width Ratio (RBC) 13.7 % 11.5 - 14.5 % [facility] Hematocrit Volume Fraction (Bld) 43.3 % 42 - 52 % [facility] Hemoglobin mass conc (Bld) 14.4 g/dL 14 - 18 g/dL [facility] Interpretation and review of laboratory results Abnormal [facility] Lymphocytes/100 WBC (Bld) 21.4 % 20.5 - 51.1 % [facility] MCH Entitic mass (RBC) 31.4 pg 28 - 32 pg [facility] MCHC mass conc (RBC) 33.3 g/dL 33 - 37 g/dL [facility] MCV Entitic volume (RBC) 94.3 fL High 80 - [address] [facility] Monocytes/100 WBC (Bld) 14.0 % High 0 - 13 % [facility] Neutrophils/100 WBC (Bld) 61.9 % 42.2 - 75.2 % [facility] Platelets #/vol (Bld) 145 10*3/uL [facility] RBC #/vol (Bld) 4.59 10*6/uL Low [facility] [place] SCAN SLIDE NO NO [facility] WBC corrected for nucl RBC Auto #/vol (Bld) 8.[address] [facility] CREATININE,RANDOM URINEon CREATININE, URINE RANDOM 120.1 mg/dL [facility] Complete Blood Counton 09-05 Basophils/100 WBC (Bld) 0.8 % Normal 0.0-3.0 [facility] Comment on above: Performed By: #### 1 [id number], [id number] #### [facility] [address] [place] [address] Eosinophils/100 WBC (Bld) 1.9 % Normal 0.0-4.0 [facility] Comment on above: Performed By: #### 1 [id number], [id number] #### [facility] [address] [place] [address] Erythrocyte distribution width (RBC) [Ratio] 13.7 % Normal 11.5-14.5 [facility] Comment on above: Performed By: #### 1 [id number], [id number] #### [facility] [address] [place] [address] Hematocrit (Bld) [Volume fraction] 43.3 % Normal 42.0-52.0 [facility] Comment on above: Performed By: #### 1 [id number], [id number] #### [facility] [address] [place] [address] Hemoglobin (Bld) [Mass/Vol] 14.4 g/dL Normal 14.0-18.0 [facility] Comment on above: Performed By: #### 1 [id number], [id number] #### [facility] [address] [place] [address] Lymphocytes/100 WBC (Bld) 21.4 % Normal 20.5-51.1 [facility] Comment on above: Performed By: #### 1 [id number], [id number] #### [facility] [address] [place] [address] MCH (RBC) [Entitic mass] 31.4 pg Normal 28.0-32.0 [facility] Comment on above: Performed By: #### 1 558804, [id number] #### [facility] [address] [place] [address] MCHC (RBC) [Mass/Vol] 33.3 g/dL Normal 33.0-37.0 [facility] Comment on above: Performed By: #### 1 [id number], [id number] #### [facility] [address] [place] [address] MCV (RBC) [Entitic vol] 94.3 fL High 80.0-94.0 [facility] Comment on above: Performed By: #### 1 [id number], [id number] #### [facility] [address] [place] [address] Monocytes/100 WBC (Bld) 14.0 % High 0.0-13.0 [facility] Comment on above: Performed By: #### 1 875119, [id number] #### [facility] [address] [place] [address] Neutrophils/100 WBC (Bld) 61.9 % Normal 42.2-75.2 [facility] Comment on above: Performed By: #### 1 224883, [id number] #### [facility] [address] [place] [address] Platelets (Bld) [#/Vol] 145 thou/cumm Normal 130-400 [facility] Comment on above: Performed By: #### 1 [id number], [id number] #### [facility] [address] [place] [address] RBC (Bld) [#/Vol] 4.59 mil/cumm Low 4.70-6.10 [facility] Comment on above: Performed By: #### 1 [id number], [id number] #### [facility] [address] [place] [address] SCAN NO Normal NO [facility] Comment on above: Performed By: #### 1 615063, [id number] #### [facility] [address] [place] [address] WBC (Bld) [#/Vol] 8.3 thou/cumm Normal 4.8-10.8 [facility] Comment on above: Performed By: #### 1 [id number], [id number] #### [facility] [address] [place] [address] POC GLUCOSEon 01-17-2019 Glucose [Mass/Vol] 312 mg/dL High 70-126 [facility] Comment on above: Performed By: #### 1 445891, [id number] #### [facility] [address] [place] [address] Glucose [Mass/Vol] 201 mg/dL High 70-126 [facility] Comment on above: Performed By: #### 1 [id number], [id number] #### [facility] [address] [place] [address] POCT GLUCOSEon 09-05-2018 Glucose mass conc 312 mg/dL High 70 - 126 mg/dL [facility] Interpretation and review of laboratory results Abnormal [facility] Glucose mass conc 201 mg/dL High 70 - 126 mg/dL [facility] Interpretation and review of laboratory results Abnormal [facility] URINALYSIS W/ MICRO W/ REFLE X C AND Son 09-05-2018 Appearance Nom (U) [facility]AR [facility] Bacteria LM Ql (Urine sed) TRACE NONE SEEN [facility] BILIRUBIN, URINE DIPSTICK Negative NEGATIVE [facility] BLOOD, URINE DIPSTICK Negative NEGATIVE [facility] C & S INDICATED NO NO [facility] Casts LM.LPF #/area (Urine sed) NONE SEEN NONE SEEN /lpf [facility] Epithelial cells.squamous LM.HPF #/area (Urine sed) 0-2 NONE SEEN /hpf [facility] GLUCOSE, URINE DIPSTICK Negative NEGATIVE mg/dL [facility] KETONES, URINE DIPSTICK Negative NEGATIVE mg/dL [facility] LEUKOCYTE ESTERASE, URINE DIPSTK Negative NEGATIVE [facility] Mucus Ql (Urine sed) NONE SEEN NONE SEEN [facility] Nitrate Ql (U) Negative NEGATIVE [facility] PH, URINE DIPSTICK 5.5 [facility] Protein mass conc (U) TRACE NEGATI VE mg/dL [facility] RBC LM.HPF #/area (Urine sed) 0-2 NONE SEEN /hpf [facility] SPECIFIC GRAVITY, URINE DIPSTICK 1.[address] [facility] Unidentified crystals LM Ql (Urine sed) NONE SEEN NONE SEEN [facility] UROBILINOGEN, URINE DIPSTICK 0.[address] [facility] WBC LM.HPF #/area (Urine sed) 0-[address] [facility] Urinalysis w/ Micro w/Reflex C and Son 09-05-2018 Color Nom (U) YELLOW Normal YELLOW [facility] Comment on above: Performed By: #### 1 [id number], [id number] #### [facility] [address] [phone] Bacteria LM.HPF (Urine sed) [#/Area] TRACE Normal NONE SEEN [facility] Comment on above: Performed By: #### 1 [id number], [id number] #### [facility] [address] [phone] CTSIND NO Normal NO [facility] Comment on above: Performed By: #### 1 [id number], [id number] #### [facility] [address] [phone] RBC (U) [#/Vol] 0-2 Normal NONE SEEN [facility] Comment on above: Performed By: #### 1 [id number], [id number] #### [facility] [address] [phone] SG 1.020 Normal 1.010-1.025 [facility] Comment on above: Performed By: #### 1 [id number], [id number] #### [facility] [address] [place] [address] UABLD Negative Normal NEGATIVE [facility] Comment on above: Performed By: #### 1 [id number], [id number] #### [facility] [address] [place] [address] UAGLU Negative Normal NEGATIVE [facility] Comment on above: Performed By: #### 1 [id number], [id number] #### [facility] [address] [place] [address] UAKET Negative Normal NEGATIVE [facility] Comment on above: Performed By: #### 1 [id number], [id number] #### [facility] [address] [place] [address] UALEUK Negative Normal NEGATIVE [facility] Comment on above: Performed By: #### 1 [id number], [id number] #### [facility] [address] [place] [address] UANIT Negative Normal NEGATIVE [facility] Comment on above: Performed By: #### 1 [id number], [id number] #### [facility] [address]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 pressure 158 mm[Hg] Joceline Lovell SIGNALS COLLECTION TECHNICIAN.COMPUTER METEOROLOGIST Work Phone: [facility] 10-30-2022 07:54-0400 Body height 180.3 cm Joceline Lovell SIGNALS COLLECTION TECHNICIAN.COMPUTER METEOROLOGIST Work Phone: [facility] 10-30-2022 07:54-0400 Body weight 122.47 kg Joceline Lovell SIGNALS COLLECTION TECHNICIAN.COMPUTER METEOROLOGIST Work Phone: [facility] 10-30-2022 07:54-0400 Diastolic blood pressure 68 mm[Hg] Joceline Lovell SIGNALS COLLECTION TECHNICIAN.COMPUTER METEOROLOGIST Work Phone: [facility] 10-30-2022 07:54-0400 Heart rate 74 /min Joceline Lovell SIGNALS COLLECTION TECHNICIAN.COMPUTER METEOROLOGIST Work Phone: [facility] 10-30-2022 07:54-0400 SaO2% (BldA) [Mass fraction] 97 % Joceline Lovell SIGNALS COLLECTION TECHNICIAN.COMPUTER METEOROLOGIST Work Phone: [facility] 10-30-2022 07:54-0400 Systolic blood pressure 172 mm[Hg] Joceline Lovell SIGNALS COLLECTION TECHNICIAN.COMPUTER METEOROLOGIST Work Phone: [facility] 10-05-2022 12:01-0500 Reason For Taking VItal Signs DR MONTEZ NIX MD [facility] 10-05-2022 11:45-0500 Body temperature 97.52 [degF] DR MONTEZ NIX MD [facility] 10-05-2022 11:45-0500 Diastolic Blood Pressure Non-Invasive [address] MONTEZ NIX MD [facility] 10-05-2022 11:45-0500 Heart rate 71 /min DR MONTEZ NIX MD [facility] 10-05-2022 11:45-0500 Reason For Taking VItal Signs DR MONTEZ NIX MD [facility] 10-05-2022 11:45-0500 Respiratory rate 20 /min DR MONTEZ NIX MD [facility] 10-05-2022 11:45-0500 Systolic Blood Pressure Non-Invasive [address] MONTEZ NIX MD [facility] 10-05-2022 07:56-0500 Diastolic Blood Pressure Non-Invasive [address] MONTEZ NIX MD [facility] 10-05-2022 07:56-0500 Reason For Taking VItal Signs DR MONTEZ NIX MD [facility] 10-05-2022 07:56-0500 Systolic Blood Pressure Non-Invasive [address] MONTEZ NIX MD [address] [place] [address] 10-05-2022 07:36-0500 Body temperature 97.52 [degF] DR MONTEZ NIX MD [address] [place] [address] 10-05-2022 07:36-0500 Diastolic Blood Pressure Non-Invasive [address] MONTEZ NIX MD [address] [place] [address] 10-05-2022 07:36-0500 Heart rate 77 /min DR MONTEZ NIX MD [address] [place] [address] 10-05-2022 07:36-0500 Respiratory rate 20 /min DR MONTEZ NIX MD [address] [place] [address] 10-05-2022 07:36-0500 Systolic Blood Pressure Non-Invasive [address] MONTEZ NIX MD [address] [place] [address] 10-05-2022 03:06-0500 Body temperature 97.88 [degF] DR MONTEZ NIX MD [address] [place] [address] 10-05-2022 03:06-0500 Heart rate 73 /min DR MONTEZ NIX MD [address] [place] [address] 10-05-2022 03:06-0500 Respiratory rate 20 /min DR MONTEZ NIX MD [address] 10-04-2022 15:34-[address] MONTEZ NIX MD [address] [place] [address] 10-04-2022 15:34-[address] MONTEZ NIX MD [address] [place] [address] 10-04-2022 14:44-0500 Heart rate 78 /min DR MONTEZ NIX MD [address] [place] [address] 10-04-2022 06:59-0500 Heart rate 75 /min DR MONTEZ NIX MD [address] [place] [address] 10-04-2022 04:31-0500 Body temperature 97.34 [degF] DR MONTEZ NIX MD [facility] 10-04-2022 04:31-0500 Mean blood pressure 74 mm[Hg] DR MONTEZ NIX MD [address] [place] [address] 10-03-2022 15:47-0500 Heart rate 78 /min DR MONTEZ NIX MD [address] [place] [address] 10-03-2022 10:30-0500 Heart rate 79 /min DR MONTEZ NIX MD [address] [place] [address] 10-03-2022 06:41-0500 Heart rate 75 /min DR MONTEZ NIX MD [address] [place] [address] 10-02-2022 19:14-0500 Body height 180.[address] MONTEZ NIX MD [address] [place] [address] 10-02-2022 19:14-0500 Body weight 121.[address] MONTEZ NIX MD [address] [place] [address] 10-02-2022 19:14-0500 Body weight 37.41 kg/m2 DR MONTEZ NIX MD [facility] 07-03-2022 15:11-0500 Body height 180.3 cm Crystal Bauer DO Work Phone: [facility] 07-03-2022 15:11-0500 Body weight 124.74 kg Crystal Gomezr DO Work Phone: [facility] 07-03-2022 15:11-0500 Diastolic blood pressure 81 mm[Hg] Crystal Gomezr DO Work Phone: [facility] 07-03-2022 15:11-0500 Heart rate 76 /min Crystal Gomezr DO Work Phone: [facility] 07-03-2022 15:11-0500 Respiratory rate 20 /min Crystal Swoger DO Work Phone: [facility] 07-03-2022 15:11-0500 SaO2% (BldA) [Mass fraction] 96 % Crystal Bauer DO Work Phone: [facility] 07-03-2022 15:11-0500 Systolic blood pressure 188 mm[Hg] Crystal Hutchins O Work Phone: [facility] 03-28-2022 11:08-0400 Body height 180.3 cm Esmer Be SIGNALS COLLECTION TECHNICIAN.COMPUTER METEOROLOGIST Work Phone: [facility] 03-28-2022 11:08-0400 Body weight 124.1 kg Esmer Be SIGNALS COLLECTION TECHNICIAN.COMPUTER METEOROLOGIST Work Phone: [facility] 03-28-2022 11:08-0400 Diastolic blood pressure 99 mm[Hg] Esmer Be SIGNALS COLLECTION TECHNICIAN.COMPUTER METEOROLOGIST Work Phone: [facility] 03-28-2022 11:08-0400 Heart rate 71 /min Esmer Be SIGNALS COLLECTION TECHNICIAN.COMPUTER METEOROLOGIST Work Phone: [facility] 03-28-2022 11:08-0400 Respiratory rate 16 /min Esmer Be SIGNALS COLLECTION TECHNICIAN.COMPUTER METEOROLOGIST Work Phone: [facility] 03-28-2022 11:08-0400 SaO2% (BldA) [Mass fraction] 94 % Esmer Be SIGNALS COLLECTION TECHNICIAN.COMPUTER METEOROLOGIST Work Phone: [facility] 03-28-2022 11:08-0400 Systolic blood pressure 212 mm[Hg] Esmer Be SIGNALS COLLECTION TECHNICIAN.COMPUTER METEOROLOGIST Work Phone: [facility] 11-21-2021 15:01-0400 Body height 180.3 cm Joceline Lovell SIGNALS COLLECTION TECHNICIAN.COMPUTER METEOROLOGIST Work Phone: [facility] 11-21-2021 15:01-0400 Body weight 120.2 kg Joceline Lovell SIGNALS COLLECTION TECHNICIAN.COMPUTER METEOROLOGIST Work Phone: [facility] 11-21-2021 15:01-0400 Diastolic blood pressure 82 mm[Hg] Joceline Lovell SIGNALS COLLECTION TECHNICIAN.COMPUTER METEOROLOGIST Work Phone: [facility] 11-21-2021 15:01-0400 Heart rate 72 /min Joceline Lovell SIGNALS COLLECTION TECHNICIAN.COMPUTER METEOROLOGIST Work Phone: [facility] 11-21-2021 15:01-0400 SaO2% (BldA) [Mass fraction] 97 % Joceline Lovell SIGNALS COLLECTION TECHNICIAN.COMPUTER METEOROLOGIST Work Phone: [facility] 11-21-2021 15:01-0400 Systolic blood pressure 168 mm[Hg] Joceline Lovell SIGNALS COLLECTION TECHNICIAN.COMPUTER METEOROLOGIST Work Phone: [facility] 09-05-2018 08:56-0500 Body Temperature 96.6 [degF] [facility] Work Phone: 09-05-2018 08:56-0500 BP Diastolic 71 mm[Hg] [facility] Work Phone: 09-05-2018 08:56-0500 BP Systolic 145 mm[Hg] [facility] Work Phone: 09-05-2018 08:56-0500 Pulse (Heart Rate) 89 /min [facility] Work Phone: 09-05-2018 08:56-0500 Pulse Oximetry 94 % [facility] Work Phone: 09-05-2018 08:56-0500 Respiratory Rate 18 /min [facility] Work Phone: 09-04-2018 20:30-0500 BMI (Body Mass Index) 32.92 kg/m2 [facility] Work Phone: 09-04-2018 20:30-0500 Height 180.3 cm [facility] Work Phone: 09-04-2018 20:30-0500 Weight 107.05 kg Rakan Amaro [facility] Work Phone: Encounters Encounter Date Encounter Type Care Provider Facility Start: 07-13-2025 ambulatory Moises Prater Facility :[facility] Start: 06-30-2025 ambulatory SPENCER TOWNSEND [facility] Start: 06-18-2025 Encounter for other preprocedural examination Hanknatividad Luevano [facility] Start: 06-17-2025 End: 06-17-2025 ambulatory Spencer Townsend Facility:[facility] Start: 06-15-2025 ambulatory MANSOOR HAILE Facilit y:[id number] Start: 06-15-2025 End: 06-15-2025 ambulatory MANSOOR MARIELLA Facility:[id number] Start: 06-09-2025 ambulatory Spencer Townsend Facility:[facility] Start: 06-09-2025 End: 06-09-2025 ambulatory Moises Prater Facility:[facility] Start: 05-26-2025 End: 05-28-2025 Evaluation and management of inpatient MOISES PRATER Facility:[id number] Start: 05-21-2025 End: 05-21-2025 Emergency department patient visit MOISES PRATER Facility:[id number] Start: 05-04-2025 End: 05-04-2025 Telephone encounter Projection Welding Machine Operator Clinician Work Phone: Cardiology Start: 04-24-2025 End: 04-24-2025 Telephone encounter Shukri Riggs MD Work Phone: Cardiology Start: 04-06-2025 End: 04-06-2025 Office outpatient visit 40 minutes Shukri Riggs MD Work Phone: Cardiology Comment on above: Chronic HFrEF (heart failure with reduced ejection fraction) (HCC) (Primary Dx); DCM (dilated cardiomyopathy) (HCC); Coronary artery disease involving [place] coronary artery of [place] heart without angina pectoris; Nonrheumatic mitral valve regurgitation Start: 04-06-2025 End: 04-06-2025 ambulatory SHUKRI RIGGS Facility:[facility] [facility] Start: 04-06-2025 End: 04-06-2025 ambulatory SHUKRI RIGGS Facility:[facility] Start: 03-13-2025 End: 03-13-2025 Patient encounter procedure Crystal Bauer DO Work Phone: [facility] Pulmonary/Sleep/Criti kathy Care Comment on above: MACY on CPAP (Primary Dx); Coronary artery disease involving [place] coronary artery of [place] heart without angina pectoris; DCM (dilated cardiomyopathy) ([facility]); Chronic HFrEF (heart failure with reduced ejection fraction) ([facility]); End-stage renal disease on peritoneal dialysis ([facility]); Postinflammatory pulmonary fibrosis ([facility]) Start: 03-13-2025 End: 03-13-2025 ambulatory CRYSTAL BAUER Facility:[id number] Start: 03-09-2025 End: 03-09-2025 Telephone encounter Projection Welding Machine Operator Clinician Work Phone: Cardiology Start: 02-23-2025 [facility] Facility:[facility] Start: 02-23-2025 End: 02-23-2025 Subsequent hospital visit by physician [facility] Work Phone: Cardiology Comment on above: Pacemaker reprogramm ing/check [Z45.018] Start: 02-12-2025 End: 02-12-2025 Telephone encounter Fabian Douglass DO Work Phone: Cardiology Comment on above: Courtesy call (Joust e survey) Start: 02-03-2025 End: 02-03-2025 Telephone encounter Crystal Bauer DO Work Phone: [facility] Pulmonary/Sleep/Criti kathy Care Start: 01-21-2025 End: 01-22-2025 Telephone encounter Shukri Riggs MD Work Phone: Cardiology Comment on above: Patient Question Start: 12-22-2024 End: 12-22-2024 ambulatory [facility] Facility:[facility] Start: 12-22-2024 Encounter for other preprocedural examination JEMIMA DUKE [facility] Start: 12-22-2024 End: 12-22-2024 Patient encounter procedure Jemima Duke DDS Work Phone: Dentistry Comment on above: Preoperative clearan ce (Primary Dx); Nonrheumatic mitral valve regurgitation Start: 12-22-2024 End: 12-22-2024 Preoperative state eJmima Dover Angie DDS Work Phone: [facility] Work Phone: Start: 12-22-2024 End: 12-22-2024 Evaluation and management of inpatient Pulm Fct Lab J-2 Pulmonary Medicine Comment on above: Preoperative examina tion, unspecified (Primary Dx) Start: 12-22-2024 End: 12-22-2024 [facility] Start: 12-18-2024 End: 12-18-2024 Evaluation and management of inpatient Ip Transesophageal Echo Cardiology Comment on above: Nonrheumatic mitral valve regurgitation (Primary Dx) Start: 12-15-2024 End: 01-21-2025 Evaluation and management of inpatient JACQUELINE Buck YAKELIN Facility:[facility] Start: 12-15-2024 End: 12-16-2024 ambulatory [facility] Facility:[facility] Start: 12-15-2024 End: 12-15-2024 ambulatory [facility] Facility:[facility] Start: 12-11-2024 ambulatory MOISES PRATER Facility:[id number] Start: 11-27-2024 End: 01-27-2025 Follow-up encounter Shukri Riggs MD Work Phone: Cardiology Start: 11-25-2024 End: 12-03-2024 Telephone encounter Cardiac Surgeon - Unspecified Cardiothoracic Comment on above: Appointment Insurance Inquiry Referral Information ; initial consult Start: 11-25-2024 End: 11-25-2024 Patient encounter procedure Echo Digital Add On J1-5 Work Phone: Cardiology Comment on above: DCM (dilated cardiom yopathy) ([facility]); Chronic HFrEF (heart failure with reduced ejection fraction) ([facility]); Nonrheumatic mitral valve regurgitation Start: 11-25-2024 End: 11-25-2024 ambulatory SHUKRI RIGGS Facility:[facility] Start: 11-25-2024 End: 11-25-2024 Office outpatient new 60 minutes Shukri Riggs MD Work Phone: Cardiology Comment on above: DCM (dilated cardiom yopathy) (HCC) (Primary Dx); Chronic HFrEF (heart failure with reduced ejection fraction) (HCC); Coronary artery disease involving [place] coronary artery of [place] heart without angina pectoris; Nonrheumatic mitral valve regurgitation Start: 11-12-2024 End: 11-12-2024 Telephone encounter No One (Historical) Referring Physician Comment on above: External Referrals/r esources Appointment ([facility] 11/25/2024 APPT WITH Raúl IGLESIAS WITH THE PT AND MAILED VIA [employer].) Start: 11-11-2024 End: 11-11-2024 Telephone encounter Cheikh Conti APRN.CNP Work Phone: [facility] Cardiology Comment on above: Patient Question Start: 11-10-2024 End: 11-10-2024 ambulatory [facility] Facility[facility] Start: 11-05-2024 End: 11-05-2024 ambulatory [facility] Facility:[facility] Start: 10-27-2024 ambulatory DOMINGO MONSALVE Fac ility:[id number] Start: 10-27-2024 End: 10-27-2024 Subsequent hospital visit by physician Micheal Mckeon [place] [facility] Comment on above: Bilateral carotid ar edwige stenosis [I65.23] Start: 10-14-2024 End: 10-14-2024 Transcribe Orders Domingo Monsalve MD Work Phone: [facility] Comment on above: Bilateral carotid ar edwige stenosis (Primary Dx) Start: 09-15-2024 End: 09-15-2024 ambulatory [facility] Facility:[facility] Start: 08-27-2024 End: 08-27-2024 Patient encounter procedure Cheikh Conti APRN.COMPUTER METEOROLOGIST Work Phone: [facility] Cardiology Comment on above: Coronary artery dise ase involving [place] coronary artery of [place] heart without angina pectoris (Primary Dx); Chronic HFrEF (heart failure with reduced ejection fraction) (HCC); End-stage renal disease on peritoneal dialysis (HCC); Primary hypertension; Hyperlipidemia LDL goal <55; Class 2 severe obesity due to excess calories with serious comorbidity and body mass index (BMI) of 35.0 to 35.9 in adult (HCC) Start: 08-27-2024 End: 08-27-2024 ambulatory CHEIKH CONTI Facility:[id number] Start: 08-21-2024 End: 08-21-2024 ambulatory Linagina Duarteeun Facility:[facility] Start: 03-24-2024 End: 03-24-2024 Subsequent hospital visit by physician Micheal Mckeon [place] [facility] Comment on above: 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) [E11.621, L97.409] Start: 03-05-2024 Transcribe Orders Ciro Mancera DPM Work Phone: [facility] Comment on above: 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) (Primary Dx) Start: 02-22-2024 Telephone encounter Cheikh sutton APRN.CNP Work Phone: [facility] Cardiology Comment on above: Hyperlipidemia Start: 02-18-2024 Refill Cheikh CADENA RN.CRISELDA Work Phone: [facility] Cardiology Comment on above: Refill Request Start: 02-14-2024 End: 02-14-2024 Patient encounter procedure Esmer Be APRN.CNP Work Phone: [facility] Pulmonary/Sleep/Criti kathy Care Comment on above: MACY on CPAP (Primary Dx); Chronic obstructive pulmonary disease, unspecified COPD type (HCC); Chronic HFrEF (heart failure with reduced ejection fraction) (HCC); Former smoker; Chronic hypoxemic respiratory failure (HCC); Allergic rhinitis, unspecified seasonality, unspecified trigger Start: 11-23-2023 End: 11-23-2023 Patient encounter procedure Cheikh Conti APRN.CNP Work Phone: [facility] Cardiology Comment on above: Coronary artery dise ase involving [place] coronary artery of [place] heart without angina pectoris (Primary Dx); Hyperlipidemia LDL goal <55; Primary hypertension; Chronic HFrEF (heart failure with reduced ejection fraction) (HCC); Class 2 severe obesity due to excess calories with serious comorbidity and body mass index (BMI) of 36.0 to 36.9 in adult ([facility]) Start: 11-20-2023 Telephone encounter Tram morrow APRN.COMPUTER METEOROLOGIST Work Phone: [facility] Start: 11-19-2023 Telephone encounter Tram morrow APRN.COMPUTER METEOROLOGIST Work Phone: [facility] Start: 11-13-2023 End: 11-13-2023 [facility] Facility:[facility] Start: 11-13-2023 End: 11-13-2023 Patient encounter procedure Akhil Juan MD Work Phone: [facility] Comment on above: Chronic HFrEF (heart failure with reduced ejection fraction) ([facility]) (Primary Dx); Nonrheumatic mitral valve regurgitation; DCM (dilated cardiomyopathy) ([facility]); Chronic hypoxemic respiratory failure ([facility]); Coronary artery disease involving [place] coronary artery of [place] heart without angina pectoris; Cardiomyopathy, ischemic; Secondary pulmonary arterial hypertension ([facility]) Start: 11-01-2023 Telephone encounter Akhil sharpe MD Work Phone: [facility] Comment on above: Requests return call (Heart valve inquiry) Start: 10-30-2023 End: 10-30-2023 [facility] Facility:[facility] Start: 10-26-2023 Telephone encounter Cheikh sutton APRN.COMPUTER METEOROLOGIST Work Phone: [facility] Cardiology Comment on above: Results (Carotid Art delia Stenosis) Start: 10-26-2023 End: 10-26-2023 Subsequent hospital visit by physician Micheal Lab [address] VASCULAR LAB Comment on above: Syncope and collapse [R55] Start: 10-22-2023 End: 10-22-2023 Patient encounter procedure Crystal Bauer DO Work Phone: [facility] Pulmonary/Sleep/Criti kathy Care Comment on above: MACY on CPAP (Primary Dx); Postinflammatory pulmonary fibrosis (HCC); DCM (dilated cardiomyopathy) ([facility]); SOB (shortness of breath) on exertion; Obesity, Class II, BMI 35-39.9; Nonrheumatic mitral valve regurgitation; Chronic HFrEF (heart failure with reduced ejection fraction) (HCC); Pleural effusion Start: 10-17-2023 End: 10-17-[facility] Comment on above: Spirometry Start: 10-17-2023 End: 10-17-2023 Patient encounter procedure Pulm Fct Lab [facility] Start: 10-16-2023 End: 10-16-2023 ambulatory MOISES PRATER Facility:[facility] Start: 10-16-2023 End: 10-16-2023 Patient encounter procedure Akhil Juan MD Work Phone: [facility] Comment on above: Nonrheumatic mitral valve regurgitation (Primary Dx); Cardiomyopathy, nonischemic (HCC); Coronary artery disease involving [place] coronary artery of [place] heart without angina pectoris; Acute on chronic combined systolic and diastolic congestive heart failure (HCC); Secondary pulmonary arterial hypertension (HCC); Interstitial lung disease (HCC) Start: 10-03-2023 Telephone encounter Cheikh sutton APRN.CNP Work Phone: [facility] Cardiology Comment on above: Orders Start: 10-02-2023 End: 10-02-2023 Patient encounter procedure Cheikh Conti APRN.CNP Work Phone: [facility] Cardiology Comment on above: Syncope and collapse (Primary Dx); Dyspnea on exertion; Decreased cardiac ejection fraction; Nonrheumatic mitral valve regurgitation; Primary hypertension; Mixed hyperlipidemia; Class 2 severe obesity due to excess calories with serious comorbidity and body mass index (BMI) of 37.0 to 37.9 in adult (HCC); Former smoker; Abnormal electrocardiogram; History of echocardiogram Start: 07-23-2023 End: 07-23-2023 Subsequent hospital visit by physician [address] Comment on above: Pleural effusion [J9 0] Start: 07-23-2023 End: 07-23-2023 Patient encounter procedure Crystal Bauer DO Work Phone: [facility] Pulmonary/Sleep/Criti [facility] Comment on above: Pleural effusion (Pr imary Dx); Pulmonary nodules; Postinflammatory pulmonary fibrosis (HCC); MACY on CPAP; DCM (dilated cardiomyopathy) (HCC); Former smoker Start: 07-13-2023 Telephone encounter Crystal Dunne maryam Bauer DO Work Phone: [facility] Start: 07-09-2023 ambulatory CRYSTAL Leavitt MARILYNJUDITH Gayle ty:[facility]I Start: 04-20-2023 Telephone encounter Crystal Dunne nataliedeedee Lizette DO Work Phone: [facility] Comment on above: Procedure (CT chest ) Start: 04-19-2023 End: 04-19-2023 Patient encounter procedure Crystal Juandeedee Baeur DO Work Phone: [facility]/Sleep/[facility]i [facility] Comment on above: Chronic obstructive pulmonary disease, unspecified COPD type (HCC) (Primary Dx); Pulmonary nodules; Postinflammatory pulmonary fibrosis (HCC); MACY on CPAP; DCM (dilated cardiomyopathy) ([facility]); Former smoker; Pleural effusion Start: 04-04-2023 ambulatory CRYSTAL Gayle ty:[facility] Start: 04-04-2023 End: 04-04-2023 Subsequent hospital visit by physician Crystal Bauer DO Work Phone: [facility] Comment on above: SOLITARY PULMONARY N ODGLES Start: 03-05-2023 End: 03-05-2023 Emergency department patient visit VICK ROSE Facility:[facility] Start: 03-05-2023 End: 03-05-2023 Subsequent hospital visit by physician Provider [facility] Start: 02-21-2023 End: 02-21-2023 Patient encounter procedure Tristan Alexander DO Work Phone: [facility] Cardiology Comment on above: Essential hypertensi on (Primary Dx); MACY (obstructive sleep apnea); History of echocardiogram; History of cardiovascular stress test; History of diabetes mellitus; Former smoker; Chronic HFrEF (heart failure with reduced ejection fraction) ([facility]) Start: 2023 End: 02-09-2023 ambulatory WILLIAM INGRAM DO Facility:A Start: 01-23-2023 End: 01-23-[address] NABIL JONES MD Facility:A Start: 01-23-2023 End: 01-23-[address] NABIL JONES MD [facility] Start: 01-03-2023 End: 01-04-[address] NABIL JONES MD Facility:A Start: 01-02-2023 ambulatory CRYSTAL Gayle ty:[facility] Start: 01-02-2023 End: 01-02-2023 Subsequent hospital visit by physician Provider [facility] Start: 01-02-2023 End: 01-02-2023 Patient encounter procedure Crystal Bauer DO Work Phone: [facility] Pulmonary/Sleep/Criti kathy Care Comment on above: Chronic hypoxemic re spiratory failure (HCC) (Primary Dx); Postinflammatory pulmonary fibrosis (HCC); MACY on CPAP; Psoriasis; SOB (shortness of breath); Obesity, Class II, BMI 35-39.9; Former smoker; DCM (dilated cardiomyopathy) (HCC); History of 2019 novel coronavirus disease (COVID-19); Chronic obstructive pulmonary disease, unspecified COPD type (HCC); Solitary pulmonary nodule Start: 01-02-2023 Telephone encounter Crystal Bauer DO Work Phone: [facility] Pulmonary/Sleep/[facility]i [facility] Care Comment on above: Procedure (CT scan a nd fu ) Start: 12-31-2022 End: 01-01-2023 Emergency department patient visit SARA HAY Facility:[facility] Start: 12-31-2022 End: 12-31-2022 Subsequent hospital visit by physician Provider [facility] Start: 12-28-2022 End: 12-29-[address] NABIL JONES MD Facility:A Start: 12-28-2022 End: 12-28-[address] NABIL JONES MD [facility] Start: 12-21-2022 End: 12-25-2022 Evaluation and management of inpatient HARISH BURROWS Facility:[facility] Start: 12-21-2022 End: 12-25-2022 Subsequent hospital visit by physician Provider [facility] Comment on above: Discharge Summary - Lauren Hutchinson MD - 12/25/2022 11:45 AM EDT [facility] [place] [address] HEALTH INFORMATION MANAGEMENT DISCHARGE SUMMARY Patient: PETE CONLEY LAUREN HUTCHINSON M.D. [id number] M Status: ADM IN [facility] 2075-A Date of Admission: 12/21/22 Discharge Summary Date of Discharge: 12/25/22 Discharge Diagnosis: 1. Acute congestive heart failure A&P Patient presented with increasing SOB and edema On bumex drip Now started to make good urine Plan Fluid restirction to 1800 ml per day Renal diet Will discharge on torsomide as per the manager strategy. Talked regardinf the case in detail with Dr. Alexander. We reivewed the CT chest together. There is extensive atherosclerosis of the caoronary arteries meaning he has severe CAD. This would require cath and most likely a CABG as a definitive solution. HOwevr, as his renal fdunction is down, cath agt this time is not an option. 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 2. Acute kidney injury superimposed on CKD A&P Creat 4; slightly more than her last year bsaleine ogf 2.89 Made 2450 ml urine yesterday Was on bumex drip and was DC'ed to toromide Talked with Dr. Russ and he recommended toromide on discharge Plan CONTINUE torosmide 20 mg BiD 3. BPH (benign prostatic hyperplasia) A&P Has a large prostate causing mass effect on bladder base as per the CT abdomen report today Plan CONTINUE tamsulosin 0.4 mg nightly CONTINUE finasteride 5 mg daily 4. Essential (primary) hypertension A&P BP in acceptable range Plan CONTINUE carvidelol 6.25 mg BiD 5. DM2 (diabetes mellitus, type 2) A&P FS in acceptable range Plan CONTINUE sliding scale insulin 6. MACY (obstructive sleep apnea) A&P Can use CPAP at night 7. Morbid obesity A&P BMI 37.4 Plan Diet and calorie restriction Defer further management to PCP on discharge HPI: A 72 year old male with PMHx of CHF, HTN, Pulmonary fibrosis, Chronic respiratory failure(2 L NC at home), CKD, MACY, BPH who presents to the ED with c/o of Increased SOB and Swelling of his whole body. Patient reports he has feeling SOB, associated with swelling of his body, Productive cough with yellow sputum, nausea, vomiting once. Denies any chest pain, nausea, vomiting, abdominal pain, bladder changes. Of note Constipation at times. Of note patient suppose to see his manager strategy for Possible Dialysis cath on abdomen but did not make it due to current health condition Family history: No known HTN, CHF, Other medical problems Past surgical history: Tonsilectomy Social history: denies any tobacco, etoh or illicit drug abuse Hospital Course: Patient presented with wotrseing SOB and swleling og the bod. he was diagnosed with [place] on CKD and CHF excaerbqation combination. He wa splaced on Bumex drip for the same and fluid restriction. He did well with that. He was making around > 2 litres of urine but his creatinien started to trend upwards. Nephrology was aware of the case and recommedned to hold bumex drip for a day. After holding the bumex drip, he was still making around 1.5 litres of urine and they reocmmedned that he can be discharged on torsomide. The patient is almost to the point of dialysis and the manager strategy has an appointment schediuled for him for PD cahteter polacement on as outpatient. He will be on PD after that. [employer] was also following the case for CHF exacerbation .CT chest was reviweed and it showed severe atherosclerosis of the coronary arteries. The ideal recommendations would be cardiac cath and possibly CABG after that however, that would require the renal functoin to be stabilised. Theuy recommedned that this can be done as an outpatient after the patient is kept on HD/PD. They will follow the needs as outpatient. The patient is stable to be discharged home today. Discharge Condition: Stable Disposition: Home CC: MOISES PRATER M.D. 12/25/22 1155 LAUREN HUTCHINSON M.D. cc: << Signature on File>> Reported By: LAUREN HUTCHINSON M.D. Signed By: LAUREN HUTCHINSON M.D. Tests performed at: [address] [address] Start: 12-20-2022 Telephone encounter Crystal Bauer DO Work Phone: [facility] Pulmonary/Sleep/Criti kathy Care Comment on above: Results Start: 12-18-2022 ambulatory CRYSTAL BAUER Facili ty:[facility] Start: 12-18-2022 End: 12-18-2022 Subsequent hospital visit by physician Provider [facility] Start: 11-27-2022 End: 11-27-2022 Patient encounter procedure Joceline Lovell SIGNALS COLLECTION TECHNICIAN.COMPUTER METEOROLOGIST Work Phone: [facility] Cardiology Comment on above: Primary hypertension (Primary Dx); Chronic HFrEF (heart failure with reduced ejection fraction) (HCC); History of echocardiogram; Former smoker Start: 11-16-2022 Telephone encounter Joceline hay SIGNALS COLLECTION TECHNICIAN.COMPUTER METEOROLOGIST Work Phone: [facility] Cardiology Comment on above: Orders (Lab work) Start: 10-30-2022 End: 10-30-2022 Patient encounter procedure Joceline Lovell APRN.COMPUTER METEOROLOGIST Work Phone: [facility] Cardiology Comment on above: Hospital discharge f ollow-up (Primary Dx); Chronic HFrEF (heart failure with reduced ejection fraction) (HCC); Benign hypertension; SOB (shortness of breath); Oxygen dependent; Generalized edema; History of echocardiogram; Former smoker Start: 10-24-2022 ambulatory MOISES PRATER Facili ty:[facility] Start: 10-24-2022 End: 10-24-2022 Subsequent hospital visit by physician Provider [facility] Comment on above: X-RAY Start: 10-02-2022 End: 10-05-2022 Evaluation and management of inpatient DR MARIAM PICKENS MD Facility:A Start: 10-02-2022 End: 10-05-2022 Evaluation and management of inpatient DR MONTEZ NIX MD [facility] Start: 07-03-2022 End: 07-03-2022 Patient encounter procedure Crystal Martinezdeedee Lizette DO Work Phone: [facility]monary/Sleep/Criti kathy Care Comment on above: Interstitial pulmona ry disease (HCC) (Primary Dx); History of 2019 novel coronavirus disease (COVID-19); Former smoker; Postinflammatory pulmonary fibrosis (HCC); Psoriasis; MACY on CPAP Start: 04-25-2022 Telephone encounter Joceline hay APRN.COMPUTER METEOROLOGIST Work Phone: [facility] Cardiology Comment on above: Results Start: 04-21-2022 End: 04-21-2022 Patient encounter procedure Nurse Card Up Fadi Work Phone: [facility] Cardiology Comment on above: Essential hypertensi on (Primary Dx) Start: 03-28-2022 Telephone encounter Joceline hay APRN.COMPUTER METEOROLOGIST Work Phone: [facility] Cardiology Comment on above: Appointment Start: 03-28-2022 End: 03-28-2022 Patient encounter procedure Esmer Be APRN.COMPUTER METEOROLOGIST Work Phone: [facility]/Sleep/[facility]i [facility] Care Comment on above: Postinflammatory pul monary fibrosis (HCC) (Primary Dx); Obesity, Class II, BMI 35-39.9; Interstitial pulmonary disease (HCC); MACY (obstructive sleep apnea); Primary hypertension; Former smoker Start: 03-22-2022 End: 03-22-2022 Subsequent hospital visit by physician Provider [facility] Comment on above: INTER PULM DISEASE J 84.9 Start: 12-12-2021 Refill Joceline Lovell APRN.COMPUTER METEOROLOGIST Work Phone: [facility] Cardiology Comment on above: Refill Request Start: 11-21-2021 End: 11-21-2021 Patient encounter procedure Joceline Lovell SIGNALS COLLECTION TECHNICIAN.COMPUTER METEOROLOGIST Work Phone: [facility] Cardiology Comment on above: Essential hypertensi on (Primary Dx); SOB (shortness of breath); Bilateral lower extremity edema; History of cardiovascular stress test; History of echocardiogram; Former smoker Start: 09-04-2018 End: 09-05-2018 Patient encounter procedure MOISES Castillo [facility] Start: 09-04-2018 End: 09-05-2018 Emergency department patient visit Rakan Hollisfermin Work Phone: [facility] Care Comment on above: Fracture, tibia Start: 09-26-2010 Documentation procedure Ciro Mancera DPM Work Phone: [facility] Start: 09-26-2010 Historic EMR Ciro Mancera D PM Work Phone: [facility] Procedures Date Procedure Procedure Detail Performing Clinician Start: 04-06-2025 Echocardiography SHUKRI Olsen OOMMIPANIT Start: 02-23-2025 Prgrmg dev eval impl antable subq lead dfb system Murj Provider Start: 01-10-2025 Antibody screen SHUKRI COPELAND Comment on above: Order Comment: Speci men Type: BLOOD SPECIMENOrdering Facility: [facility] Address: [address] [place] [address] Performed By: #### T SCR ####CC MAIN BLOOD BANKCLIA [id number] [address] [place] Start: 01-06-2025 Antibody screen SHUKRI BUSBY OMMIPANMARTINEZ Comment on above: Order Comment: Speci men Type: BLOOD SPECIMENOrdering Facility: [facility] Address: [address] [place] [address] Performed By: #### T SCR ####CC MAIN BLOOD BANKCLIA [id number] [address] [place] Start: 11-25-2024 Echo tthrc r-t 2d w/wom-mode compl spec&colr d Shukri Riggs MD Work Phone: Start: 11-25-2024 LVEF TRANSTHORACIC ECHO Shukri Riggs MD Work Phone: Start: 10-27-2024 Duplex scan extracra nial art compl bi study Domingo Monsalve MD Work Phone: Start: 08-27-2024 Ecg routine ecg w/le ast 12 lds i&r only Cheikh Conti SIGNALS COLLECTION TECHNICIAN.COMPUTER METEOROLOGIST Work Phone: Start: 03-24-2024 Non-invasive physiol ogic study extremity 3 levls Ciro Rose Poornima DPM Work Phone: Start: 10-26-2023 Duplex scan extracra nial art compl bi study Cheikh Conti SIGNALS COLLECTION TECHNICIAN.COMPUTER METEOROLOGIST Work Phone: Start: 10-17-2023 Spmtry w/vc expirato ry jeanette w/wo mxml vol vntj Omayra Calix SIGNALS COLLECTION TECHNICIAN.COMPUTER METEOROLOGIST Work Phone: Start: 10-02-2023 Ecg routine ecg w/le ast 12 lds i&r only Cheikh Conti SIGNALS COLLECTION TECHNICIAN.COMPUTER METEOROLOGIST Work Phone: Start: 07-23-2023 Radiologic exam ches t 2 views Crystal Bauer DO Work Phone: Start: 04-04-2023 Ct thorax w/o contra st material Crystal Bauer DO Work Phone: Start: 03-05-2023 Ecg routine ecg w/le ast 12 lds trcg only w/o i&r Ccf Provider Start: 03-05-2023 aPTT in Blood by Coagulation assay Ccf Provider Start: 03-05-2023 BASIC METABOLIC PNL Rojas in Yrn Rose MD Work Phone: Start: 03-05-2023 CBC + DIFF Vick Cynthia Rose MD Work Phone: Start: 03-05-2023 HEPATIC FUNCTION PNL Cc f Provider Start: 03-05-2023 HIGH SENSITIVITY TROPONIN T Ccf Provider Start: 03-05-2023 MANUAL DIFF Ccf Provid er Start: 03-05-2023 NT PRO BNP Vick Rose MD Work Phone: Start: 03-05-2023 PROTHROMBIN TIME/PT Rojas in Yrn Rose MD Work Phone: Start: 03-05-2023 Radiologic exam ches t single view Vick Rose MD Work Phone: Start: 01-02-2023 IMMGLOB QUANT A/E/G/ M ([facility]) Crystal Bauer DO Work Phone: Start: 12-31-2022 HIGH SENSITIVITY TROPONIN T Sara B Hay Work Phone: Start: 12-31-2022 BASIC METABOLIC PNL Con nor B Hay Work Phone: Start: 12-31-2022 CBC + DIFF Sara B W olf Work Phone: Start: 12-31-2022 EXPEDITED COVID19 Conno r B Hay Work Phone: Start: 12-31-2022 FLU A/B AND RSV (PCR ) (UNION) Sara B Hay Work Phone: Start: 12-31-2022 HEPATIC FUNCTION PNL Co nnor B Hay Work Phone: Start: 12-31-2022 HIGH SENSITIVITY TROPONIN T Sara B Hay Work Phone: Start: 12-31-2022 NT PRO BNP Sara B W olf Work Phone: Start: 12-31-2022 GLUCOSE FASTING BLD Con nor B Hay Work Phone: Start: 12-31-2022 URINALYSIS, DIPSTICK ONLY Sara B Hay Work Phone: Start: 12-31-2022 Radiologic exam ches t single view Sara B Hay Work Phone: Start: 12-25-2022 BASIC METABOLIC PNL Kyle Russ MD Work Phone: Start: 12-25-2022 CBC + DIFF Candida Russ MD Work Phone: Start: 12-25-2022 HEPATIC FUNCTION PNL Ja alia Russ MD Work Phone: Start: 12-24-2022 GLUCOSE FASTING BLD Priya verito Douglass MD Work Phone: Start: 12-24-2022 GLUCOSE FASTING BLD Priya verito Douglass MD Work Phone: Start: 12-24-2022 GLUCOSE FASTING BLD Priya verito Douglass MD Work Phone: Start: 12-24-2022 BASIC METABOLIC PNL Roberto Carlos Villafana MD Work Phone: Start: 12-24-2022 CBC + DIFF Lauren johnson MD Work Phone: Start: 12-24-2022 HEPATIC FUNCTION PNL Theron Hutchinson MD Work Phone: Start: 12-23-2022 GLUCOSE FASTING BLD Priya verito Douglass MD Work Phone: Start: 12-23-2022 GLUCOSE FASTING BLD Priya verito Douglass MD Work Phone: Start: 12-23-2022 GLUCOSE FASTING BLD Priya verito Douglass MD Work Phone: Start: 12-23-2022 Ct abdomen & pelvis w/o contrast material Lauren Hutchinson MD Work Phone: Start: 12-23-2022 Ecg routine ecg w/le ast 12 lds trcg only w/o i&r Ccf Provider Start: 12-23-2022 CBC + DIFF Vick medrano MD Work Phone: Start: 12-23-2022 Comprehensive metabo lic 2000 panel - Serum or Plasma Tristan Alexander DO Work Phone: Start: 12-23-2022 MAGNESIUM BLD Tristan Alexander DO Work Phone: Start: 12-23-2022 PTH INTACT BLD Vick mejia MD Work Phone: Start: 12-22-2022 Radiologic exam ches t single view Glendy Geronimo MD Work Phone: Start: 12-22-2022 GLUCOSE FASTING BLD Priya Douglass MD Work Phone: Start: 12-22-2022 GLUCOSE FASTING BLD Priya Douglass MD Work Phone: Start: 12-22-2022 BASIC METABOLIC PNL Priya Douglass MD Work Phone: Start: 12-22-2022 CBC + DIFF Melonie Douglass MD Work Phone: Start: 12-22-2022 HIGH SENSITIVITY TROPONIN T Melonie Douglass MD Work Phone: Start: 12-22-2022 Radiologic exam abdo men 1 view Melonie Douglass MD Work Phone: Start: 12-22-2022 Echo tthrc r-t 2d w/wom-mode compl spec&colr d Melonie Douglass MD Work Phone: Start: 12-21-2022 HIGH SENSITIVITY TROPONIN T Harish Burrows Work Phone: Start: 12-21-2022 EXPEDITED COVID19 Harish Burrows Work Phone: Start: 12-21-2022 Ecg routine ecg w/le ast 12 lds trcg only w/o i&r Ccf Provider Start: 12-21-2022 BASIC METABOLIC PNL Con nor B Hay Work Phone: Start: 12-21-2022 CBC + DIFF Sara B W olf Work Phone: Start: 12-21-2022 HEPATIC FUNCTION PNL Co nnor B Hay Work Phone: Start: 12-21-2022 HIGH SENSITIVITY TROPONIN T Sara B Hay Work Phone: Start: 12-21-2022 NT PRO BNP Sara B W olf Work Phone: Start: 12-21-2022 Radiologic exam ches t single view Sara Hay Work Phone: Start: 12-21-2022 US RETROPERITONEAL COMP Melonie Douglass MD Work Phone: Start: 12-18-2022 CT CHEST HI RESOL PE WO/CONT Crystal Bauer DO Work Phone: Start: 10-24-2022 Radiologic exam ches t 2 views Moises Prater MD Work Phone: Start: 10-07-2021 Lipid 1996 panel - S karthik or Plasma Ciro Mancera DPM Work Phone: Start: 09-05-2018 End: 09-05-2018 Glucose blood reagent strip Rakan huizar Work Phone: Start: 09-05-2018 End: 09-05-2018 Glucose blood reagent strip Rakan huizar Work Phone: Start: 09-05-2018 End: 09-05-2018 Assay of osmolality blood Sharmin Patterson Work Phone: Start: 09-05-2018 End: 09-05-2018 Assay of urine sodium Sharmin Patterson Work Phone: Start: 09-05-2018 End: 09-05-2018 Creatinine other source Sharmin Patterson Work Phone: Start: 09-05-2018 End: 09-05-2018 URINALYSIS W/ MICRO W/ REFLEX C AND S Sharmin Patterson Work Phone: Start: 09-05-2018 End: 09-05-2018 Basic metabolic panel calcium total Sharmin Patterson Work Phone: Start: 09-05-2018 End: 09-05-2018 CBC, EDIF, PLATELET Sharmin Patterson Work Phone: Start: 09-04-2018 End: 09-04-2018 Glucose blood reagent strip Sharmin galindo Work Phone: Start: 09-04-2018 End: 09-04-2018 CT of knee Roseanne sullivan Work Phone: Start: 09-04-2018 End: 09-04-2018 Assay of lipase Roseanne sullivan Work Phone: Start: 09-04-2018 End: 09-04-2018 Basic metabolic panel calcium total Roseanne Bunch Work Phone: Start: 09-04-2018 End: 09-04-2018 Radex ribs bi w/posteroant ch minimum 4 views Roseanne Bunch Work Phone: Start: 09-04-2018 End: 09-04-2018 X-ray of left knee Roseanne sullivan Work Phone: Start: 09-04-2018 End: 09-04-2018 Computed tomography of abdomen and pelvis with contrast Roseanne Bunch Work Phone: Start: 09-04-2018 End: 09-04-2018 X-ray of left ankle Roseanne sullivan Work Phone: Start: 09-04-2018 End: 09-04-2018 CBC, EDIF, PLATELET Roseanne sullivan Work Phone: Start: 08-20-[address] MONTEZ NIX MD Comment on above: Right foot Start: 09-23-2010 SURGICAL PATHOLOGY, CONVERTED Ciro Mancera DPM Work Phone: Amputation lesser toe DR LEONARD JONES MD Comment on above: left 4th toe Dialysis catheter (p hysical object) DR NABIL JONES MD History of coronary artery bypass grafting S/P CABG (coronary artery bypass graft) Shukri Riggs MD Work Phone: Plan of Treatment Date Care Activity Detail Author Start: 10-07-2026 Lipid 1996 panel - Serum or Plasma Lipid Screening [facility] Start: 10-07-2026 LIPID SCREEN LIPID SCREEN [facility] Start: 03-05-2026 DIABETES SCREEN DIABETES SCREEN [facility] Start: 03-05-2026 Diabetes Screening Diabetes Screening [facility] Start: 01-21-2026 Complete blood count Hemoglobin/Hematocrit [facility] Start: 01-21-2026 Creatinine measurement Serum Creatinine [facility] Start: 12-31-2025 DIABETES SCREEN DIABETES SCREEN [facility] Start: 12-25-2025 DIABETES SCREEN DIABETES SCREEN [facility] Start: 12-24-2025 Hepatitis B surface antibody level LDL Cholesterol [facility] Start: 12-22-2025 Complete blood count Hemoglobin/Hematocrit [facility] Start: 12-22-2025 Creatinine measurement Serum Creatinine [facility] Start: 12-18-2025 BP Controlled (<130/80) BP Controlled (<130/80) [facility] in Start: 12-18-2025 Complete blood count Hemoglobin/Hematocrit [facility] Start: 12-18-2025 Creatinine measurement Serum Creatinine [facility] Start: 12-04-2025 Diabetic foot examination Diabetic Foot Exam [facility] Start: 10-09-2025 End: 10-09-2025 Patient encounter procedure 10/09/2025 1:00 PM EST Office Visit Cardiology [address] [place] [address] Shukri Riggs MD [address] [id number] Chronic HFrEF (heart failure with reduced ejection fraction) Cardiology Comment on above: Chronic HFrEF (heart failure with reduce d ejection fraction) Start: 05-04-2025 End: 05-04-2025 Patient encounter procedure Cardiology Comment on above: AGRICULTURAL ENGINEERING TECHNICIAN Follow up Start: 04-20-2025 Influenza vaccination [facility] Start: 04-06-2025 End: 04-06-2025 Patient encounter procedure Cardiology Comment on above: Chronic HFrEF (heart failure with reduce d ejection fraction) Start: 03-16-2025 Hemoglobin A1c measurement HbA1C [facility] Start: 03-13-2025 End: 03-13-2025 Patient encounter procedure 03/13/2025 2:45 PM EDT Office Visit [facility] Pulmonary/Sleep/Critical Care [address] [place], [place] [address] Crystal Bauer DO [address] [place] [address] Patient in CCM as of 01/16/2025 [facility] Pulmonary/Sleep/Cr itical Care Comment on above: Patient in CCM as of 01/16/2025 Start: 02-23-2025 End: 02-23-2025 Patient encounter procedure 02/23/2025 12:45 PM EDT Appointment Cardiology [address] [place] [address] OUTPATIENT 4-6W DEVICE CHECK (ICD) Cardiology Comment on above: OUTPATIENT 4-6W DEVICE CHECK (ICD) * Start: 02-21-2025 Hepatitis B surface antibody level LDL Cholesterol [facility] Start: 02-13-2025 BP Controlled (<130/80) BP Controlled (<130/80) [facility] Start: 02-13-2025 End: 02-13-2025 Patient encounter procedure 02/13/2025 10:00 AM EDT Office Visit [facility] Pulmonary/Sleep/Critical Care [address] [place] [address] Esmer Be APRN.COMPUTER METEOROLOGIST [address] [place] [address] yearly f/u [facility] Pulmonary/Sleep/Cr itical Care Comment on above: yearly f/u Start: 02-02-2025 End: 02-02-2025 Patient encounter procedure 02/02/2025 3:15 PM EDT Office Visit [facility] Pulmonary/Sleep/Critical Care [address] [place] [address] Crystal Bauer, [address] [place] [address] Patient in CCM as of 01/16/2025 [facility] Pulmonary/Sleep/Cr itical Care Comment on above: Patient in CCM as of 01/16/2025 Start: 01-26-2025 End: 01-26-2025 Patient encounter procedure 01/26/2025 9:45 AM EDT Office Visit Cardiology [address] [id number] Shukri Riggs MD [address] [place] [address] 2 mos follow up Cardiology Comment on above: 2 mos follow up Start: 12-19-2024 End: 12-19-2024 Patient encounter procedure Pulmonary Medicine Comment on above: YG// A/O, no drips, O2 or precautions. R eg WC. Transport NOT in. Start: 12-03-2024 End: 03-04-2025 aPTT in Platelet poor plasma by Coagulation assay ACTIVATED PARTIAL THROMBOPLASTIN TIME Lab Routine Nonrheumatic mitral valve regurgitation ESRD on peritoneal dialysis (HCC) Type 2 diabetes mellitus without complication, unspecified whether senior care insulin use (HCC) Chronic obstructive pulmonary disease, unspecified COPD type (HCC) Hyperlipidemia, unspecified hyperlipidemia type Primary hypertension MACY on CPAP Bilateral carotid artery stenosis Atherosclerosis of [place] coronary artery of [place] heart with other form of angina pectoris Expected: 12/03/2024 (Approximate), Expires: 03/04/2025 [facility] Comment on above: Expected: 12/03/2024 (Approximate), Expi res: 03/04/2025 Start: 12-03-2024 End: 03-04-2025 CBC W Auto Differential panel - Blood COMPLETE BLOOD COUNT AND DIFFERENTIAL Lab Routine Nonrheumatic mitral valve regurgitation ESRD on peritoneal dialysis (HCC) Type 2 diabetes mellitus without complication, unspecified whether senior care insulin use (HCC) Chronic obstructive pulmonary disease, unspecified COPD type (HCC) Hyperlipidemia, unspecified hyperlipidemia type Primary hypertension MACY on CPAP Bilateral carotid artery stenosis Atherosclerosis of [place] coronary artery of [place] heart with other form of angina pectoris Expected: 12/03/2024 (Approximate), Expires: 03/04/2025 [facility] Comment on above: Expected: 12/03/2024 (Approximate), Expi res: 03/04/2025 Start: 12-03-2024 End: 03-04-2025 Comprehensive metabolic 2000 panel - Serum or Plasma COMPREHENSIVE METABOLIC PANEL Lab Routine Nonrheumatic mitral valve regurgitation ESRD on peritoneal dialysis (HCC) Type 2 diabetes mellitus without complication, unspecified whether terminal carman insulin use (HCC) Chronic obstructive pulmonary disease, unspecified COPD type (HCC) Hyperlipidemia, unspecified hyperlipidemia type Primary hypertension MACY on CPAP Bilateral carotid artery stenosis Atherosclerosis of [place] coronary artery of [place] heart with other form of angina pectoris Expected: 12/03/2024 (Approximate), Expires: 03/04/2025 [facility] Comment on above: Expected: 12/03/2024 (Approximate), Expi res: 03/04/2025 Start: 12-03-2024 End: 03-04-2025 Creatinine and Glomerular filtration rate.predicted panel - Serum, Plasma or Blood CREATININE BLD Lab Routine Nonrheumatic mitral valve regurgitation ESRD on peritoneal dialysis (HCC) Type 2 diabetes mellitus without complication, unspecified whether terminal carman insulin use (HCC) Chronic obstructive pulmonary disease, unspecified COPD type (HCC) Hyperlipidemia, unspecified hyperlipidemia type Primary hypertension MACY on CPAP Bilateral carotid artery stenosis Atherosclerosis of [place] coronary artery of [place] heart with other form of angina pectoris Expected: 12/03/2024, Expires: 03/04/2025 [facility] Comment on above: Expected: 12/03/2024, Expires: Start: 12-03-2024 End: 03-04-2025 Hemoglobin A1c in Blood HEMOGLOBIN A1C Lab Routine Nonrheumatic mitral valve regurgitation ESRD on peritoneal dialysis (HCC) Type 2 diabetes mellitus without complication, unspecified whether terminal carman insulin use (HCC) Chronic obstructive pulmonary disease, unspecified COPD type (HCC) Hyperlipidemia, unspecified hyperlipidemia type Primary hypertension MACY on CPAP Bilateral carotid artery stenosis Atherosclerosis of [place] coronary artery of [place] heart with other form of angina pectoris Expected: 12/03/2024 (Approximate), Expires: 03/04/2025 [facility] Comment on above: Expected: 12/03/2024 (Approximate), Expi res: 03/04/2025 Start: 12-03-2024 End: 03-04-2025 Natriuretic peptide.B prohormone N-Terminal [Mass/volume] in Serum or Plasma NT PRO BNP Lab Routine Nonrheumatic mitral valve regurgitation ESRD on peritoneal dialysis (HCC) Type 2 diabetes mellitus without complication, unspecified whether terminal carman insulin use (HCC) Chronic obstructive pulmonary disease, unspecified COPD type (HCC) Hyperlipidemia, unspecified hyperlipidemia type Primary hypertension MACY on CPAP Bilateral carotid artery stenosis Atherosclerosis of [place] coronary artery of [place] heart with other form of angina pectoris Expected: 12/03/2024 (Approximate), Expires: 03/04/2025 [facility] Comment on above: Expected: 12/03/2024 (Approximate), Expi res: 03/04/2025 Start: 12-03-2024 End: 03-04-2025 PT panel - Platelet poor plasma by Coagulation assay PROTHROMBIN TIME Lab Routine Nonrheumatic mitral valve regurgitation ESRD on peritoneal dialysis ([facility]) Type 2 diabetes mellitus without complication, unspecified whether senior care insulin use (HCC) Chronic obstructive pulmonary disease, unspecified COPD type ([facility]) Hyperlipidemia, unspecified hyperlipidemia type Primary hypertension MACY on CPAP Bilateral carotid artery stenosis Atherosclerosis of [place] coronary artery of [place] heart with other form of angina pectoris Expected: 12/03/2024 (Approximate), Expires: 03/04/2025 [facility] Work Phone: Comment on above: Expected: 12/03/2024 (Approximate), Expi res: 03/04/2025 Start: 11-25-2024 End: 11-25-2024 Patient encounter procedure 11/25/2024 9:30 AM EDT Office Visit Cardiology [address] [place] [address] Shukri Riggs MD [address] [place] [id number] Clinician, Interventional [address] [place] [address] [phone] DX: CTS for coronary artery disease involving [place] coronary artery of [place] heart w/o angina pectoris Cardiology Comment on above: DX: CTS for coronary artery disease invo lving [place] coronary artery of [place] heart w/o angina pectoris Start: 10-27-2024 End: 10-27-2024 Patient encounter procedure 10/27/2024 3:30 PM EDT Appointment [facility] [address] [place] [id number] I65.23 Carotid stenosis [facility] Comment on above: I65.23 Carotid stenosis Start: 10-17-2024 Complete blood count Hemoglobin/Hematocrit [facility] Start: 10-17-2024 Creatinine measurement Serum Creatinine [facility] Start: 10-16-2024 BP Controlled (<130/80) BP Controlled (<130/80) [facility] Start: 10-12-2024 DIABETES SCREEN DIABETES SCREEN [facility] Start: 10-02-2024 BP Controlled (<130/80) BP Controlled (<130/80) [facility] Start: 08-27-2024 End: 08-27-2024 Patient encounter procedure [facility] Cardiology Comment on above: 9 month f/u for CAD Start: 08-20-2024 Advance Directive Discussion Advance Directive Discussion [facility] Start: 08-20-2024 Medicare Advantage Annual Wellness Visit Medicare Advantage Annual Wellness Visit [facility] Start: 04-20-2024 Covid-19 Vaccine () Covid-19 Vaccine () [facility] Start: 04-20-2024 Influenza vaccination [facility] Start: 03-24-2024 End: 03-24-2024 Patient encounter procedure 03/24/2024 12:30 PM EDT Appointment [facility] [address] [place] [address] BLE [facility] Comment on above: BLE Start: 03-05-2024 Complete blood count Hemoglobin/Hematocrit [facility] Start: 03-05-2024 Creatinine measurement Serum Creatinine [facility] Start: 02-22-2024 End: 05-23-2024 Alanine aminotransferase [Enzymatic activity/volume] in Serum or Plasma ALT/SGPT Lab Routine Hyperlipidemia LDL goal <55 Expected: 02/22/2024 (Approximate), Expires: 05/23/2024 [facility] Work Phone: Comment on above: Expected: 02/22/2024 (Approximate), Expi res: 05/23/2024 Start: 02-22-2024 End: 05-23-2024 Aspartate aminotransferase [Enzymatic activity/volume] in Serum or Plasma AST/SGOT BLD Lab Routine Hyperlipidemia LDL goal <55 Expected: 02/22/2024 (Approximate), Expires: 05/23/2024 [facility] Work Phone: Comment on above: Expected: 02/22/2024 (Approximate), Expi res: 05/23/2024 Start: 02-22-2024 End: 05-23-2024 Lipid 1996 panel - Serum or Plasma LIPID PANEL BASIC Lab Routine Hyperlipidemia LDL goal <55 Expected: 02/22/2024 (Approximate), Expires: 05/23/2024 [facility] Work Phone: Comment on above: Expected: 02/22/2024 (Approximate), Expi res: 05/23/2024 Start: 10-02-2023 End: 10-31-2024 NM Heart Perfusion W stress and W radionuclide IV NM CARDIAC PERF STRESS/PHARM Radiology Routine Syncope and collapse Mixed hyperlipidemia Class 2 severe obesity due to excess calories with serious comorbidity and body mass index (BMI) of 37.0 to 37.9 in adult (HCC) Dyspnea on exertion Decreased cardiac ejection fraction Abnormal electrocardiogram Expected: 10/02/2023, Expires: 10/31/2024 [facility] Work Phone: Comment on above: Expected: 10/02/2023, Expires: 5 Start: 10-02-2023 End: 10-02-2024 US Carotid arteries - bilateral US CAROTID ARTERIES [facility] Vascular Lab Routine Syncope and collapse Mixed hyperlipidemia Former smoker Expected: 10/02/2023, Expires: 10/02/2024 [facility] Work Phone: Comment on above: Expected: 10/02/2023, Expires: 5 Start: 08-20-2023 Advance Directive Discussion Advance Directive Discussion [facility] Start: 08-20-2023 Behavioral Health Screening Behavioral Health Screening [facility] Start: 08-20-2023 Depression Assessment Depression Assessment [facility] Start: 07-19-2023 End: 05-18-2024 Ct thorax w/o contrast material CT CHEST WO IVCON Radiology Routine Pulmonary nodules Expected: 07/19/2023, Expires: 05/18/2024 [facility] Work Phone: Comment on above: Expected: 07/19/2023, Expires: 4 Start: 04-20-2023 Covid-19 Vaccine () Covid-19 Vaccine () [facility] Start: 04-20-2023 Influenza vaccination [facility] Start: 04-04-2023 End: 02-01-2024 Ct thorax w/o contrast material CT CHEST WO IVCON Radiology Routine Solitary pulmonary nodule Expected: 04/04/2023, Expires: 02/01/2024 [facility] Work Phone: Comment on above: Expected: 04/04/2023, Expires: 4 Start: 02-07-2023 RSV Vaccine (1 - 1-dose 75+ series) RSV Vaccine (1 - 1-dose 75+ series) [facility] Start: 01-02-2023 End: 03-04-2023 IgA [Mass/volume] in Serum or Plasma IGA BLD Lab Routine Chronic obstructive pulmonary disease, unspecified COPD type (HCC) Expected: 01/02/2023, Expires: 03/04/2023 [facility] Work Phone: Comment on above: Expected: 01/02/2023, Expires: 3 Start: 01-02-2023 End: 03-04-2023 IgE [Units/volume] in Serum or Plasma IGE BLD Lab Routine Chronic obstructive pulmonary disease, unspecified COPD type (HCC) Expected: 01/02/2023, Expires: 03/04/2023 [facility] Work Phone: Comment on above: Expected: 01/02/2023, Expires: 3 Start: 01-02-2023 End: 03-04-2023 IgG [Mass/volume] in Serum or Plasma IGG Lab Routine Chronic obstructive pulmonary disease, unspecified COPD type (HCC) Expected: 01/02/2023, Expires: 03/04/2023 [facility] Work Phone: Comment on above: Expected: 01/02/2023, Expires: 3 Start: 01-02-2023 End: 03-04-2023 IgM [Mass/volume] in Serum or Plasma IGM Lab Routine Chronic obstructive pulmonary disease, unspecified COPD type (HCC) Expected: 01/02/2023, Expires: 03/04/2023 [facility] Work Phone: Comment on above: Expected: 01/02/2023, Expires: 3 Start: 12-31-2022 End: 08-02-2023 Ct thorax w/o contrast material CT CHEST WO IVCON Radiology Routine Interstitial pulmonary disease (HCC) Postinflammatory pulmonary fibrosis (HCC) Expected: 12/31/2022, Expires: 08/02/2023 [facility] Work Phone: Comment on above: Expected: 12/31/2022, Expires: 3 Start: 11-17-2022 End: 01-17-2023 Lipid 1996 panel - Serum or Plasma LIPID PANEL BASIC Lab Routine Primary hypertension Expected: 11/17/2022, Expires: 01/17/2023 [facility] Work Phone: Comment on above: Expected: 11/17/2022, Expires: 3 Start: 10-07-2022 Hepatitis B surface antibody level LDL Cholesterol [facility] Start: 08-20-2022 ADVANCE DIRECTIVE DISCUSSION ADVANCE DIRECTIVE DISCUSSION [facility] Start: 08-20-2022 DEPRESSION ASSESSMENT DEPRESSION ASSESSMENT [facility] Start: 04-20-2022 Influenza vaccination [facility] Start: 08-20-2021 ADVANCE DIRECTIVE DISCUSSION ADVANCE DIRECTIVE DISCUSSION [facility] Start: 08-20-2021 DEPRESSION ASSESSMENT DEPRESSION ASSESSMENT [facility] Start: 03-23-2019 Hemoglobin A1c measurement HbA1C [facility] Start: 04-20-2018 Influenza vaccination INFLUENZA VACCINE (#1) [facility] Work Phone: Start: 02-07-2013 Pneumococcal vaccination PNEUMOCOCCAL VACCINE SERIES (1 of 2 - PCV13) [facility] Work Phone: Start: 02-07-2013 PNEUMOCOCCAL: 65+ (1 - PCV) PNEUMOCOCCAL: 65+ (1 - PCV) [facility] Start: 02-07-2013 PNEUMOVAX AGE 65 AND OVER WITH 5YR LOOKBACK (#1) PNEUMOVAX AGE 65 AND OVER WITH 5YR LOOKBACK (#1) [facility] Start: 2008 RSV Vaccine (1 - 1-dose 60+ series) RSV Vaccine (1 - 1-dose 60+ series) [facility] Start: 02-07-1998 Prostate specific antigen measurement PROSTATE CANCER SCREENING DISCUSSION [facility] Work Phone: Start: 02-07-1998 Protein mass conc COLON CANCER SCREENING DISCUSSION [facility] Work Phone: Start: 02-07-1998 SHINGRIX VACCINE (1 of 2) SHINGRIX VACCINE (1 of 2) [facility] Start: 02-07-1993 COLOGUARD (FIT-DNA) COLOGUARD (FIT-DNA) [facility] Start: 02-07-1993 Colonoscopy COLONOSCOPY [facility] Start: 02-07-1993 COLORECTAL CANCER SCREENING COLORECTAL CANCER SCREENING [facility] Start: 02-07-[address] COLONOGRAPHY [facility] Start: 02-07-1993 FECAL OCCULT BLOOD FECAL OCCULT BLOOD [facility] Start: 02-07-1993 Screening for malignant neoplasm of colon [facility] Start: 02-07-1993 SIGMOIDOSCOPY SIGMOIDOSCOPY [facility] Start: 1988 Fasting lipid profile LIPID SCREENING [facility] Work Phone: Start: 02-07-1978 Zoledronic acid therapy ALPHA-1 ANTITRYPSIN DEFICIENCY SCREENING [facility] Start: 1968 Hepatitis B Vaccine (1 of 3 - Risk Dialysis 4-dose series) Hepatitis B Vaccine (1 of 3 - Risk Dialysis 4-dose series) [facility] Start: 02-07-1967 Pneumococcal Vaccine: 50+ (1 of 2 - PCV) Pneumococcal Vaccine: 50+ (1 of 2 - PCV) [facility] Start: 02-07-1967 Third diphtheria, tetanus and acellular pertussis (DTaP) vaccination TDAP (ADULT) [facility] Work Phone: Start: 02-07-1967 Urine microalbumin profile [facility] Start: 02-07-1966 ANNUAL PCP TEAM CHRONIC DISEASE VISIT ANNUAL PCP TEAM CHRONIC DISEASE VISIT [facility] Start: 02-07-1966 Anxiety Screening Anxiety Screening [facility] Start: 02-07-1966 BP CONTROLLED (<130/80) BP CONTROLLED (<130/80) [facility] Start: 02-07-1966 Depression Screening Depression Screening [facility] Start: 02-07-1966 SPIROMETRY SPIROMETRY [facility] Start: 02-07-1966 Tetanus vaccination TETANUS [facility] Work Phone: Start: 1960 Adult depression screening assessment DEPRESSION SCREENING [facility] Start: 02-07-1958 Diabetic foot examination Diabetic Foot Exam [facility] Start: 02-07-1958 Glaucoma screening Dilated Retinal Exam [facility] Start: 02-07-1954 Pneumococcal Vaccine: 65+ (1 - PCV) Pneumococcal Vaccine: 65+ (1 - PCV) [facility] Start: 02-07-1954 Pneumococcal Vaccine: 65+ (1 of 2 - PCV) Pneumococcal Vaccine: 65+ (1 of 2 - PCV) [facility] Start: 02-07-1954 PNEUMOCOCCAL: 65+ (1 - PCV) PNEUMOCOCCAL: 65+ (1 - PCV) [facility] Start: 02-07-1953 COVID-19 VACCINE (1) COVID-19 VACCINE (1) [facility] Start: 1948 COVID-19 VACCINE (#1) COVID-19 VACCINE (#1) [facility] Start: 1948 ABDOMINAL AORTIC ANEURYSM SCREENING ABDOMINAL AORTIC ANEURYSM SCREENING [facility] Start: 1948 Hepatitis C antibody, confirmatory test HEPATITIS C VIRUS SCREENING [facility] Work Phone: Basic metabolic 2000 panel BASIC METABOLIC PANEL Routine Every morning Lab until discontinued starting 09/05/2018, [address] [facility] Work Phone: Comment on above: Every morning Lab until discontinued sta rting 09/05/2018, 1 completed CARDIAC IMPLANTABLE DEVICE CHECK CARDIAC IMPLANTABLE DEVICE CHECK PACEART Routine Pacemaker reprogramming/check 02/23/2025 12:44 PM EDT [facility] CARDIAC REHAB II OUT PT ([place], [place]) CARDIAC REHAB II OUTPT ([place], [place]) BIC Routine Coronary artery disease involving [place] coronary artery of [place] heart without angina pectoris S/P CABG (coronary artery bypass graft) Ordered: 04/24/2025 [facility] Work Phone: Comment on above: Ordered: 04/24/2025 CBC, EDIF, PLATELET CBC, EDIF, P LATELET Routine Every morning Lab until discontinued starting 09/05/2018, [address] [facility] Work Phone: Comment on above: Every morning Lab until discontinued sta rting 09/05/2018, 1 completed End: 01-02-2026 CTA Abdominal vessels and Pelvis vessels W contrast IV CTA ABD/PEL W IVCON Radiology Routine Nonrheumatic mitral valve regurgitation ESRD on peritoneal dialysis (HCC) Type 2 diabetes mellitus without complication, unspecified whether senior care insulin use (HCC) Chronic obstructive pulmonary disease, unspecified COPD type (HCC) Hyperlipidemia, unspecified hyperlipidemia type Primary hypertension MACY on CPAP Bilateral carotid artery stenosis Atherosclerosis of [place] coronary artery of [place] heart with other form of angina pectoris 1 Occurrences starting 12/03/2024 until 01/02/2026 [facility] Comment on above: 1 Occurrences starting 12/03/2024 until 01/02/2026 End: 01-02-2026 CTA Chest vessels W contrast IV CTA CHEST (GATED) W IVCON Radiology Routine Nonrheumatic mitral valve regurgitation ESRD on peritoneal dialysis (HCC) Type 2 diabetes mellitus without complication, unspecified whether senior care insulin use (HCC) Chronic obstructive pulmonary disease, unspecified COPD type (HCC) Hyperlipidemia, unspecified hyperlipidemia type Primary hypertension MACY on CPAP Bilateral carotid artery stenosis Atherosclerosis of [place] coronary artery of [place] heart with other form of angina pectoris 1 Occurrences starting 12/03/2024 until 01/02/2026 [facility] Comment on above: 1 Occurrences starting 12/03/2024 until 01/02/2026 ECG COMPLETE ECG COMPLETE ECG Routine Hospital discharge follow-up 10/30/2022 7:47 AM EDT [facility] Work Phone: ECG COMPLETE ECG COMPLETE ECG Routine Essential hypertension 02/21/2023 9:07 AM EDT [facility] Work Phone: ECG COMPLETE ECG COMPLETE ECG Routine Syncope and collapse 10/02/2023 3:15 PM EST [facility] [employer] Work Phone: ECG COMPLETE ECG COMPLETE ECG Routine Coronary artery disease involving [place] coronary artery of [place] heart without angina pectoris Chronic HFrEF (heart failure with reduced ejection fraction) ([facility]) 08/27/2024 2:49 PM EST [facility] Work Phone: End: 12-03-2025 ECG COMPLETE ECG COMPLETE ECG Routine Nonrheumatic mitral valve regurgitation ESRD on peritoneal dialysis (HCC) Type 2 diabetes mellitus without complication, unspecified whether terminal carman insulin use (HCC) Chronic obstructive pulmonary disease, unspecified COPD type (HCC) Hyperlipidemia, unspecified hyperlipidemia type Primary hypertension MACY on CPAP Bilateral carotid artery stenosis Atherosclerosis of [place] coronary artery of [place] heart with other form of angina pectoris 1 Occurrences starting 12/03/2024 until 12/03/2025 [facility] Comment on above: 1 Occurrences starting 12/03/2024 until 12/03/2025 End: 10-16-2024 ECHO TRANSESOPHAGEAL ECHO TRANSESOPHAGEAL Cardiology Routine Nonrheumatic mitral valve regurgitation 1 Occurrences starting 10/16/2023 until 10/16/2024 [facility] Work Phone: Comment on above: 1 Occurrences starting 10/16/2023 until 10/16/2024 End: 01-22-2026 Echocardiography ECHO Cardiology Routine Chronic HFrEF (heart failure with reduced ejection fraction) ([facility]) 1 Occurrences starting 01/22/2025 until 01/22/2026 [facility] Work Phone: Comment on above: 1 Occurrences starting 01/22/2025 until 01/22/2026 End: 11-14-2024 LUNG DIFFUSION CAPACITY (DLCO) LUNG DIFFUSION CAPACITY (DLCO) PFT Routine Nonrheumatic mitral valve regurgitation 1 Occurrences starting 10/16/2023 until 11/14/2024 [facility] Work Phone: Comment on above: 1 Occurrences starting 10/16/2023 until 11/14/2024 LUNG DIFFUSION CAPAC ITY (DLCO) LUNG DIFFUSION CAPACITY (DLCO) PFT Routine Nonrheumatic mitral valve regurgitation 10/17/2023 2:21 PM [facility] Work Phone: End: 01-02-2026 LUNG DIFFUSION CAPACITY (DLCO) LUNG DIFFUSION CAPACITY (DLCO) PFT Routine Nonrheumatic mitral valve regurgitation ESRD on peritoneal dialysis (HCC) Type 2 diabetes mellitus without complication, unspecified whether senior care insulin use (HCC) Chronic obstructive pulmonary disease, unspecified COPD type (HCC) Hyperlipidemia, unspecified hyperlipidemia type Primary hypertension MACY on CPAP Bilateral carotid artery stenosis Atherosclerosis of [place] coronary artery of [place] heart with other form of angina pectoris 1 Occurrences starting 12/03/2024 until 01/02/2026 [facility] Comment on above: 1 Occurrences starting 12/03/2024 until 01/02/2026 End: 11-14-2024 LUNG VOLUMES LUNG VOLUMES PFT Routine Nonrheumatic mitral valve regurgitation 1 Occurrences starting 10/16/2023 until 11/14/2024 [facility] Work Phone: Comment on above: 1 Occurrences starting 10/16/2023 until 11/14/2024 LUNG VOLUMES LUNG VOLUMES PFT Routine Nonrheumatic mitral valve regurgitation 10/17/2023 2:21 PM EST [facility] Work Phone: OSMOLALITY, URINE OSMOLALITY, UR INE Routine 09/05/2018 6:00 AM EST [facility] Work Phone: OUTSIDE VENDOR CARDI AC OUTPATIENT EVENT RECORDER OUTSIDE VENDOR CARDIAC OUTPATIENT EVENT RECORDER Holter Routine Syncope and collapse Ordered: 10/02/2023 [facility] Work Phone: Comment on above: Ordered: 10/02/2023 End: 11-14-2024 SPIROMETRY BASELINE ONLY SPIROMETRY BASELINE ONLY PFT Routine Nonrheumatic mitral valve regurgitation 1 Occurrences starting 10/16/2023 until 11/14/2024 [facility] Work Phone: Comment on above: 1 Occurrences starting 10/16/2023 until 11/14/2024 SPIROMETRY BASELINE ONLY SPIROME TRY BASELINE ONLY PFT Routine Nonrheumatic mitral valve regurgitation 10/17/2023 2:21 PM EST [facility] Work Phone: End: 01-02-2026 SPIROMETRY BASELINE ONLY SPIROMETRY BASELINE ONLY PFT Routine Nonrheumatic mitral valve regurgitation ESRD on peritoneal dialysis (HCC) Type 2 diabetes mellitus without complication, unspecified whether senior care insulin use (HCC) Chronic obstructive pulmonary disease, unspecified COPD type (HCC) Hyperlipidemia, unspecified hyperlipidemia type Primary hypertension MACY on CPAP Bilateral carotid artery stenosis Atherosclerosis of [place] coronary artery of [place] heart with other form of angina pectoris 1 Occurrences starting 12/03/2024 until 01/02/2026 [facility] Comment on above: 1 Occurrences starting 12/03/2024 until 01/02/2026 US Carotid arteries - bilateral US CAROTID ARTERIES [facility] V[facility] Lab Routine Syncope and collapse Mixed hyperlipidemia Former smoker 10/26/2023 1:26 PM EST [facility] Work Phone: End: 10-14-2025 US Carotid arteries - bilateral US CAROTID ARTERIES [facility] V[facility] Lab Routine Bilateral carotid artery stenosis 1 Occurrences starting 10/14/2024 until 10/14/2025 [facility] Work Phone: Comment on above: 1 Occurrences starting 10/14/2024 until 10/14/2025 End: 03-05-2025 US Lower extremity artery - bilateral PVR LEG [facility] Lab Routine 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 [id number] 2020 Unknown PRIMETIME PRIMET SANDY HMO POS [id number] 2020-Present [phone] [address] [place] [address] O [id number] 2020 Unknown [id number] 2018 Unknown [id number] 2014 Unknown [id number] 1948 Unknown [id number] 2.16.840.1.371530.3.579.2 .111 1948 Unknown [id number] 2.16.840.1.619336.3.579.2 .627 1948 Unknown [id number] 2.16.840.1.653329.3.579.2 .62 1948 Unknown [id number] 2.16.840.1.880240.3.579.2 .1948 Unknown [id number] 2.16.840.1.036673.3.579.2 .1948 Unknown [id number] 2.16.840.1.668466.3.579.2 .62 1948 Unknown [id number] 2.16.840.1.444777.3.579.2 .651 Unknown [id number] 2.16.840.1.238426.3.579.2 .283 Unknown [id number] 2.16.840.1.151202.3.579.2 .283 Unknown [id number] 2.16.840.1.278288.3.579.2 .283 Unknown [id number] 2.16.840.1.702571.3.579.2 .283 Unknown [id number] 2.16.840.1.538636.3.579.2 .283 Unknown [id number] 2.16.840.1.121221.3.579.2 .283 Unknown [id number] 2.16.840.1.615246.3.579.2 .283 Unknown [id number] 2.16.840.1.806079.3.579.2 .283 Unknown [id number] 2.16.840.1.430732.3.579.2 .462 Unknown [id number] 2.16.840.1.716805.3.579.2 .462 Unknown [id number] 2.16.840.1.638909.3.579.2 .462 Unknown [id number] 2.16.840.1.346358.3.579.2 .462 Unknown [id number] 2.16.840.1.259449.3.579.2 .462 Unknown [id number] 2.16.840.1.172688.3.579.2 .462 Unknown [id number] 2.16.840.1.927034.3.579.2 .462 Unknown [id number] 2.16.840.1.998293.3.579.2 .462 Unknown [id number] 2.16.840.1.901987.3.579.2 .462 Social History Date Type Detail Facility Start: 09-04-2018 Tobacco smoking stat us WYIS Never smoker [facility] Work Phone: Start: 1950 Sex Assigned At Not on file O [facility] Work Phone: Start: 04-05-2020 End: 04-06-2025 Tobacco smoking status WYIS Ex-smoker [facility] Comment on above: Quit smoking in 1979 Start: 08-20-1965 End: 08-20-1979 History of tobacco use Current smoker [facility] Start: 08-20-1965 End: 08-20-1979 History of tobacco use Cigarette Smoker [facility] Start: 04-05-2020 End: 01-01-2023 Cigarettes smoked current (pack per day) - Reported 1 [facility] Start: 04-05-2020 End: 04-06-2025 Tobacco use and exposure Smokeless tobacco non-user [facility] Start: 11-21-2021 End: 04-06-2025 Alcohol intake Lifetime non-drinker (finding) [facility] Start: 07-06-2020 History SDOH Alcohol Frequency 1 [facility] Start: 11-11-2021 End: 07-03-2022 Exposure to SARS-CoV-2 (event) Not sure [facility] Sex Assigned At Sex [facility] Start: 07-06-2020 End: 01-01-2023 Alcohol Use Disorder Identification Test - Consumption [AUDIT-C] [facility] How often to you hav e a drink containing alcohol? Never [facility] Start: 07-21-2012 Average Number of Drinks Not on file [facility] consumption unknown [facility] Medical Equipment Procedure Code Equipment Code Equipment Original Text Equipment Identifier Dates [id number] Debord Xt Hf Quad [id number] Start: 01-13-2025 [place] Thk1.65mm P tfe 4x.5in Cardiovascular Sterile - [id number] Start: 12-25-2024 Ring Profile 3d 32mm Annuloplasty - [id number] Start: 12-25-2024 [place] Thk1.65mm P tfe 4x.5in Cardiovascular Sterile - [id number] Start: 12-25-2024 Goals Date Patient Goal Desired Activity /State Personal health goal Functional Status Date Assessment Result Facility 01-21-2025 Are you deaf, or do you have serious difficulty hearing No 01/21/2025 12:36 PM EDT Faisal Hong RN No [facility] 01-21-2025 Are you blind, or do you have serious difficulty seeing, even when wearing glasses No 01/21/2025 12:36 PM NATYT Faisal Hong RN No [facility] 01-21-2025 Do you have serious difficulty walking or climbing stairs Yes 01/21/2025 12:36 PM Faisal Townsend RN Yes [facility] 01-21-2025 Do you have difficul ty dressing or bathing Yes 01/21/2025 12:36 PM Faisal Townsend RN Yes [facility] 01-21-2025 Because of a physica l, mental, or emotional condition, do you have difficulty doing errands alone such as visiting a physician's office or shopping Yes 01/21/2025 12:36 PM Faisal Townsend RN Yes [facility] 01-23-2023 Functional Status Awake, Bathroom privileges [facility] 01-23-2023 Functional Status ice on [facility] 01-23-2023 Functional Status Maintained [facility] 10-05-2022 Functional Status Room check performed [facility] 10-05-2022 Functional Status [facility] 10-05-2022 Functional Status [facility] 10-04-2022 Functional Status [facility] 10-04-2022 Functional Status [facility] 10-04-2022 Functional Status SCD On/Re-appl ied bilateral knee high [facility] 10-04-2022 Functional Status Assistive Equi pment elevated on pillows [facility] 10-04-2022 Functional Status [facility] 10-03-2022 Functional Status bilateral knee high [facility] 10-03-2022 Functional Status [facility] 10-03-2022 Functional Status [facility] 10-03-2022 Functional Status Multilevel maude e, 2nd floor bedroom, 1st floor bathroom, 2nd floor bathroom [facility] 10-02-2022 Functional Status Assistive Device None [facility] 10-02-2022 Functional Status heel(s)s elevated [facility] 10-02-2022 Functional Status Sensory Deficits None [facility] Mental Status Date Assessment Result Facility 01-21-2025 Because of a physica l, mental, or emotional condition, do you have serious difficulty concentrating, remembering, or making decisions Yes 01/21/2025 12:36 PM EDT Faisal Hong RN Yes [facility] 01-23-2023 Mental Status Oriented x 4 [facility] 10-05-2022 Mental Status Orientation Oriented x 4 [facility] 10-05-2022 Mental Status [facility] 10-05-2022 Mental Status [facility] 10-04-2022 Mental Status [facility] 10-04-2022 Mental Status [facility] Clinical Notes 11-21-2021 to 06-15-2025 Telephone Encounter - Paola Hanna RN - 05/04/2025 4:31 PM EDTTelephone Encounter - Paola Hanna RN - 05/04/2025 4:31 PM EDTTelephone Encounter - Nancy Lemon APRN.[facility] - 04/24/2025 1:04 PM EDT Note Date & Type Note Facility 06-15-2025 Note HNO ID: [id number] Author: JEANETTE DODD RT(R) Service: ? Author Type: Technologist Type: Progress Notes Filed: 06/15/2025 14:31 Note Text: Radiology Service Progress Note PATIENT NAME: Pete Conley DATE OF SERVICE: June 15, 2025 TIME: 2:30 PM PATIENT IDENTITY VERIFICATION COMPLETED USING TWO (2) IDENTIFIERS: Name and Date of confirmed by patient verbally and Name and Date of confirmed by identification band. FALL SCREENING: Has the patient had 2 falls in the last year or 1 fall with injury or currently using an Ambulatory Assistive Device (Walker, Cane, Wheelchair, Crutches, etc.)? No PATIENT GENDER DATA: Assigned male at PATIENT RELEVANT IMPLANT DATA REVIEWED: Not Applicable PATIENT PRESENTS WITH AN IMPLANTABLE OR ATTACHED CONDITIONING COACH: No RADIOLOGY DEPARTMENT: General X-ray: Exam(s) Completed: Chest X-Ray PERIPHERAL IV DATA: Not applicable SIGNED BY: RT Monique(R) June 15, 2025 2:30 PM [facility] 06-15-2025 Note HNO ID: [id number] Author: MANSOOR HAILE MD Service: ? Author Type: Physician Type: Progress Notes Filed: 06/15/2025 14:02 Note Text: Referring Provider: No ref. provider found Date: June 11, 2025 Chief Complaint: Hospital F/U ([facility] f/u CHF had CABG and valve repair 12/07/24 [facility]) HISTORY OF PRESENT ILLNESS: Pete Conley is a 75 year old male who presents with daughter Dejah for follow-up of history of CABG plus valve repair on December 07, 2024 at [facility]. Also history of the patient 01/13/2025 for complete heart block. IMAGES: EKG: Last EKG Result Conclusion ECG COMPLETE Collected: 05/26/2025 5:20 PM (Final result) Impression: Ventricular-paced rhythm Abnormal ECG When compared with ECG of 21-May-2025 16:02, Vent. rate has decreased by 4 bpm Confirmed by CANDIDA LAMA MD ([id number]) on 05/26/2025 5:51:58 PM ECHO: Recent Results (from the past 4464 hours) ECHO Collection Time: 04/06/25 10:47 AM Impression CONCLUSIONS: - Exam indication: H/O CABG AND MVr - The left ventricle is moderately dilated. Left ventricular systolic function is severely decreased. EF = 25 ? 5% (2D 4-ch.) Definity contrast used for endocardial border detection. - The right ventricle is dilated. Right ventricular systolic function is mildly decreased. - The left atrial cavity is severely dilated. - The right atrial cavity is dilated. - 3D profile (size #32). There is moderately severe (3+) mitral valve regurgitation. The peak gradient is 9 mmHg and the mean gradient is 4 mmHg. Prior gradients were 14/9 mmHg. Today's gradients were obtained at 81 bpm. - Estimated right ventricular systolic pressure is 57 mmHg consistent with moderate pulmonary hypertension. Estimated right atrial pressure is 15 mmHg based on IVC assessment. - Exam was compared with the prior echocardiographic exam performed on 01/02/2025. MR appears progressed. * * * Final * * * LAST STRESS TEST: Last Stress / NM / PET NM PET/CT CARDIAC PERF REST/STRESS Exam End: 12/19/2024 12:28 PM (Final result) Narrative: * * *Final Report* * * DATE OF EXAM: Dec 19 2024 12:28PM [facility] 0109 - NM PET/CT CARD PERF REST/STRESS / PROCEDURE REASON: Cardiomyopathy, follow up * * * * Physician Interpretation * * * * Stress Stone Gang Sawyer Report: [place] [id number] Date of service: 12/19/2024 10:51:31 AM Supervising physician: Claudia Morales MD PATIENT: Name: PETE CONLEY Age: 74 years Gender: M The supervising physician was in the department and immediately available. * * * Final * * * PATIENT: Name: PETE CONLEY Age: 74 years Gender: M CONCLUSIONS: 1. PET Perfusion Study: Abnormal. 2. There is moderate (10-20%) ischemia in the territory of the LCX. 3. There is mild (<10%) ischemia in the territory of the LAD. 4. There is mild (<10%) ischemia in the territory of the RCA. 5. There is transient ischemic dilation of the LV cavity with stress. 6. No evidence of scarred or hibernating myocardium; nearly all myocardium appears viable. 7. Left ventricle is moderately dilated. The left ventricle systolic function is severely decreased. 8. Right ventricle is mildly dilated. The right ventricle systolic function is normal. 9. This is a high risk scan due to area of scar/ischemia, calculated LVEF and TID. Gated Stress TOF:SC:CTAC Gated Rest TOF:SC:CTAC LVEF % 26 23 Prior Study Comparison No prior nuclear cardiology exam available for comparison. Nuclear Med Report:Gated Rb-82 Regadenoson Stress PET and FDG Viability Study: The patient was injected with Rb-82 at rest, and ECG gated tomographic images were obtained. Approximately 10 minutes later, the patient received 0.4 mg of regadenoson, via rapid IV push, immediately followed by Rb-82 30 seconds after starting the regadenoson infusion; and ECG gated tomographic images were obtained. See administered doses below. At rest, the blood glucose was 152 mg/dl. [facility] Date of service: 12/19/2024 10:51:31 AM Ordering Physician: TEVIN QUIÑONEZ. Requesting Physician: TEVIN QUIÑONEZ Indication: Viability/ischemia assessment in ischemic cardiomyopathy Fellow: Maynor Leiva MD Interpreting physician: Claudia Morales MD Previous Cardiovascular Interventions: Diagnostic cath (12/15/2024) Height: 180.34 cm BSA: 2.36 m? Weight: 111.59 kg BMI: 34.3 kg/m? CT Dose-Length Product(DLP): 69.0 mGy * cm. CT Dose Reduction Employed: Yes. Exam Type: Rest Stress Viability Radiopharm: Rb-82 Rb-82 F-18 FDG Dosage(mCi): 34.8 34.8 8.5 Atten Correction: performed performed performed Stress Agent: Regadenoson 0.4mg Supply provid (more content not included)... [facility] 05-28-2025 Note HNO ID: [id number] Author: BELKYS JORDAN RN Service: Care Management Author Type: Registered Nurse Type: Care Mgt Progress Note Filed: 06/01/2025 10:18 Note Text: CARE MANAGEMENT PROGRESS NOTE SERVICE DATE: 06/01/2025 SERVICE TIME: 10:16 AM LOS: 1 day Confirmed that Count includes the [facility] will follow for services on discharge. HH orders and Dc summary sent. Call to patient to update and unable to leave message. Call to Dtr-Dejah and updated that Count includes the [facility] to follow for care home and PT and [facility] to notify patient of soc. Will continue to follow and assist as needed. SIGNATURE: Belkys Jordan RN PATIENT NAME: Pete Prasadhberger DATE: June 01, 2025 TIME: 10:16 AM [facility] 05-28-2025 Note HNO ID: [id number] Author: SEEMA VAUGHN RN Service: Care Management Author Type: Registered Nurse Type: Fabricio Mgt Progress Note Filed: 05/28/2025 15:44 Note Text: CARE MANAGEMENT DISCHARGE NOTE SERVICE DATE: May 28, 2025 SERVICE TIME: 3:33 PM Admission Date: 05/26/2025 LOS: 1 day Discharge Arrangement Home with home care Services Arranged Home care-awaiting confirmation of services Provider Name: Moi Caregiver Assessment Home with self care Transportation Arrangements Family-son to transport Additional Information: Patient admitted for ESRD heart failure. Patient lives at home and is normally independent with ADLS and PD. Discharge plan is home with home health. Multiple home health referrals made. Awaiting response. YAHAIRA Kumar/DANIEL Rizvi to follow up tomorrow to confirm ability to accept Spoke with Adry at [facility] and notified her of discharge. Clinical update sent in [facility] SIGNATURE: Seema Vaughn RN PATIENT NAME: Pete Sutton Jarvis DATE: May 28, 2025 TIME: 3:32 PM [facility] 05-28-2025 Note HNO ID: [id number] Author: SEEMA VAUGHN RN Service: Care Management Author Type: Registered Nurse Type: Care Mgt Progress Note Filed: 05/28/2025 12:30 Note Text: CARE MANAGEMENT PROGRESS NOTE SERVICE DATE: 05/28/2025 SERVICE TIME: 12:30 PM LOS: 1 day Powers of Choice Given: Yes Level of Care Discussed: Home Care Financial Disclosure Provided: Yes Financial Disclosure Comments: [place] Provider List: Home Care Provider list within the patient's requested geographic area shared with the patient/family: Yes within: 25 miles of zip code: [address] Quality and resource use metrics shared with the patient that are relevant to the patient's goals of care and treatment preferences:: Yes Met with patient at bedside. Patient normally lives at home and is independent with ADLS. Requesting home health. Powers of choice provided. Multiple home health referrals made. Awaiting response Spoke with Danielle at [facility] and confirmed o2 orders are 2 liters continuous. SIGNATURE: Seema Vaughn RN PATIENT NAME: Pete Conley DATE: May 28, 2025 TIME: 12:28 PM [facility] 05-28-2025 Note HNO ID: [id number] Author: TRAM VILLANUEVA RN Service: Dialysis Author Type: Registered Nurse Type: Progress Notes Filed: 05/28/2025 10:58 Note Text: CCPD completed. 366ml UF. Effluent clear/yellow/no fibrin. Pt denies issues overnight. Dr Taylor rounded, no change to orders at this time. Report to Romy LOZA. See PD flowsheet for full tx details. [facility] 05-28-2025 Note HNO ID: [id number] Author: VICK TAYLOR MD Service: ? Author Type: Physician Type: Progress Notes Filed: 05/28/2025 10:04 Note Text: INPATIENT PROGRESS NOTE SERVICE DATE: 05/28/2025 Subjective CHIEF COMPLAINT: Feels better. Less shortness of breath however he has not been ambulating much. INTERVAL HPI: Tolerated dialysis overnight. Blood pressure tolerated 2.5% solution. No chest pressure. No palpitations. No nausea or vomiting. No diarrhea. No edema. Current Facility-Administered Medications Medication Dose Route Frequency NaCl 0.9% iv flush bag 20 mL INTRAVENOUS PRN acetaminophen 650 mg tab(s) (TYLENOL) 650 mg ORAL q 6 H PRN melatonin 1 mg tab(s) 1 mg ORAL DAILY (8 PM) heparin 5,000 Units injection 5,000 Units SUBCUTANEOUS q 8 H dextrose 40 % 15 g 15 g ORAL PRN Or glucagon 1 mg injection 1 mg INTRAMUSCULAR PRN Or dextrose 10% iv bolus 12.5 g INTRAVENOUS PRN atorvastatin 80 mg tab(s) (LIPITOR) 80 mg ORAL AT BEDTIME clopidogrel 75 mg tab(s) (PLAVIX) 75 mg ORAL DAILY tamsulosin 0.4 mg cap(s) (FLOMAX) 0.4 mg ORAL DAILY albuterol 2.5 mg /3 mL (0.083 %) 2.5 mg (PROVENTIL) 2.5 mg INHALATION q 4 H PRN aspirin 81 mg chewable tab(s) 81 mg ORAL DAILY nystatin 5 mL oral liquid (MYCOSTATIN) 5 mL ORAL QID insulin lispro injection (rapid acting) (ADMElog) SUBCUTANEOUS w MEALS insulin lispro injection (rapid acting) (ADMElog) SUBCUTANEOUS AT BEDTIME bumetanide 2 mg tab(s) (BUMEX) 2 mg ORAL BID 9a/5p sodium chloride 0.9 % (flush) 2-10 mL (BD POSIFLUSH) 2-10 mL INTRAVENOUS DIRECTED PRN Review of Systems Review of Systems HENT: Negative for congestion, mouth sores and trouble swallowing. Eyes: Negative for visual disturbance. Respiratory: Less short of breath today Cardiovascular: No chest pain or palpitations. Did have worsening dyspnea on exertion. Gastrointestinal: Negative for abdominal distention, abdominal pain, blood in stool, constipation, diarrhea and nausea. Genitourinary: Voids twice daily. Musculoskeletal: Negative for arthralgias, back pain and myalgias. Skin: Negative for color change and rash. Neurological: Negative for dizziness, tremors, speech difficulty, weakness, numbness and headaches. Objective PHYSICAL EXAM: BP 96/47 Pulse 81 Temp (Src) 99.2 (Axillary) Resp 20 Ht 5' 10 (1.78m) Wt 231 lb 14.8 oz (105.2kg) SpO2 93% BMI 33.28 kg/(m2). O2 Therapy: Nasal Cannula, Liters (Numeric Only): 2 Physical Exam Performed Physical Exam Physical Exam Vitals and nursing note reviewed. Constitutional: General: Patient is not in acute distress. Appearance: Normal appearance. Patient is not ill-appearing, toxic-appearing or diaphoretic. HENT: Head: Normocephalic and atraumatic. Nose: Nose normal. Mouth/Throat: Mouth: Mucous membranes are moist. No plaques or ulcers Eyes: Extraocular Movements: Extraocular movements intact. Conjunctiva/sclera: Conjunctivae normal. Anicteric Pupils: Pupils are equal, round, and reactive to light. Cardiovascular: Rate and Rhythm: Normal rate and regular rhythm. 2 out of 6 systolic murmur heard best at apex Pulmonary: Crackles on exam Abdominal: General: Abdomen is flat. Bowel sounds are normal. Palpations: Abdomen is soft. Nontander in all 4 quadrants Musculoskeletal: General: Normal range of motion. Cervical back: Neck supple. Skin: General: Skin is warm and dry. Extremities: No edema Pulses 2+ in dorsalis pedis artery bilateral Neurological: General: No focal deficit present. Mental Status: She is alert and oriented to person, place, and time. Mental status is at baseline. No tremors/asterixis DATA: Diagnostic tests reviewed for today's visit: @RESULTRCNT[24H] Most recent labs and imaging results. Medication and Non-Pharmacologic VTE Prophylaxis/Anticoagulants Anticoagulant AND Antiplatelet Medications (From admission, onward) Start Dose Route Frequency Last Action Ordered Stop 05/27/25899 clopidogrel 75 mg tab(s) (PLAVIX) 75 mg PO DAILY Given, 05/28 92405/27/25 0140 -- 05/27/25 09 aspirin 81 mg chewable tab(s) 81 mg PO DAILY Given, 05/28 92405/27/25 0140 -- 05/26/25 2230 heparin 5,000 Units injection (Medical Risk Categories) 5,000 Units SQ EVERY 8 HOURS Given, 05/28 53005/26/25 2201 -- Assessment and plan 1. End-stage renal disease: Currently on peritoneal dialysis. He uses extraneal during the day at home. He also uses a combination of 1.5 and 2.5% dialysate. Despite stable if not slightly decreased post weight, patient presented with shortness of breath and pulmonary edema. Continue to 2.5% dialysate at night. Keep I's and O's negative. May need to add a 4.25%. 2. Heart failure with reduced ejection fraction: Patient became more short of breath despite having a lower postdialysis weight. This is concerning for worsening heart failure. He does have a known severe mitral valve regurgitation. Will continue volume management w (more content not included)... [facility] 05-27-2025 Note HNO ID: [id number] Author: AUGUSTA FERNANDEZ RN Service: Dialysis Author Type: Registered Nurse Type: Progress Notes Filed: 05/27/2025 16:59 Note Text: CCPD initiated per manager strategy orders. 2 bags 2.5% solution Fill volume of 2000mL x 5exchanges. Pt stable and tolerating tx with no complaints. Effluent clear yellow with no fibrin noted. Dressing dry and intact. Initial drain bypassed and initial fill completed without difficulties. Dwell is in progress with no issues at this time. Report to Ana Davis RN [facility] 05-27-2025 Note HNO ID: [id number] Author: STEFFI SALAMANCA APRN.CRISELDA Service: Hospital Medicine Author Type: Nurse Practitioner Type: Progress Notes Filed: 05/27/2025 14:49 Note Text: Patient seen today. Nice man, good spirits, alert and oriented. Family member in room on a phone call. Patient reports he does feel better than what he did prior to admission. PD was taking place at this time as well. Patient did feel he was breathing better as well. Denies cp sob at rest nvd abd pain fever chills. [facility] 05-27-2025 Note HNO ID: [id number] Author: TRAM VILLANUEVA RN Service: Dialysis Author Type: Registered Nurse Type: Progress Notes Filed: 05/27/2025 12:41 Note Text: CCPD completed w/o complication. 1434ml UF. Effluent clear/yellow/no fibrin noted. Pinned and capped using aseptic technique. See HD flowsheet for full tx details. See prior note for home prescription information. Report to Shantell LOZA [facility] 05-27-2025 Note HNO ID: [id number] Author: TRAM VILLANUEVA RN Service: Dialysis Author Type: Registered Nurse Type: Progress Notes Filed: 05/27/2025 11:25 Note Text: Spoke to Myriam at [facility]. Pt's current home pd orders are : 2700ml x 5 fills, 10hrs, 2 bags of 2.5%, 1 bag of 1.5%. with last fill of extraneal of 1500ml . However post cardiac surgery pt has had decreased urine output and has not been doing as well. They report pt was also recently [facility] on [facility] with diagnoses of bronchitis and placed on atb's. Pt is to have a repeat PET and also a referral was made for AVF placement though pt is reluctant to the thought of Hemodialysis at this time. [facility] 05-27-2025 Note HNO ID: [id number] Author: BELKYS JORDAN RN Service: Care Management Author Type: Registered Nurse Type: Care Mgt Initial Assessment Filed: 05/27/2025 10:16 Note Text: CARE MANAGEMENT: ASSESSMENT AND DISCHARGE PLAN SERVICE DATE: May 27, 2025 SERVICE TIME: 9:42 AM PCP: Moises Prater MD Primary Contact: Extended Emergency Contact Information Primary Emergency Contact: Dejah Cruz Mobile Relation: Daughter Secondary Emergency Contact: Jarvis,(1st alt HCPOA) Devin Mobile Relation: Son Admission Status: Inpatient [facility] Discharge Planning requested by: Per Department Practice Potential Transition Plans Home, To Be Determined Advance Directives Current Living Arrangements and Support Lives with: Alone Type of Residence: Private Residence (House) Does the patient have to climb stairs at home?: Yes, stairs outside the home (4 steps with handrails to enter the home and 1 floor living, denies access issues or difficulties with steps) Support: Children How do you manage to accomplish the following: Independent: Ambulation, Bathe/Shower, Dress, Meals/Meal Prep, Going to the bathroom, Medication Management, Transportation to appointments/community (Dtr assists with transportation if needed) Current Services/Equipment Current Post-Acute Service(s): DME, Oxygen, Dialysis (Peritoneal dialysis) Current O2 Usage (device, rate, continuous/pulse and hrs per day): 2 LPM, nocturnal only Current DME Type: Continuous Positive Airway Pressure, Oxygen, Nebulizer, Walker Discharge Planning Patient Goal(s): Be able to go home, General wellness Powers of Choice Explained: Are you interested in bedside delivery of your medications? No Discharge Planning Participant(s): Patient Patient/Family Comments: Caregiver Assessment: Transport at Discharge: Transportation Arrangements: To Be Determined Needs Prior to Discharge: Needs Prior to Discharge: To Be Determined, OT/PT Evaluation Post-Acute Discharge Plan: Patient A/O 75 year old male from home alone. Patient admitted with dyspnea, increased shortness of breath with exertion, low sodium of 125 and elevated troponin. Patient with a Hx of CAD s/p CABG and ESRD with peritoneal dialysis with supplies through [facility]. Nephrology consulted for PD arrangements. Patient now requiring 2L NC with a baseline of 2L oxygen through CPAP at . Will follow for oxygen provider. Patient denies transitional care needs or social concerns. Discharge plan is to return home as before with Dtr to transport. Will continue to follow and assist as needed. Will follow for PT eval PCP-Dr. Prater [facility] AD on file Contact Dtr-Dejah Dunlapaver [phone] Insurance-[employer] SIGNATURE: Belkys Jordan RN PATIENT NAME: Pete Conley DATE: May 27, 2025 TIME: 9:42 AM [facility] 05-27-2025 Note HNO ID: [id number] Author: GABO DONAHUE RT(R) Service: ? Author Type: Technologist Type: Progress Notes Filed: 05/27/2025 05:24 Note Text: Radiology Service Progress Note PATIENT NAME: Pete Conley DATE OF SERVICE: May 27, 2025 TIME: 5:24 AM PATIENT IDENTITY VERIFICATION COMPLETED USING TWO (2) IDENTIFIERS: Name and Date of confirmed by patient verbally. FALL SCREENING: Has the patient had 2 falls in the last year or 1 fall with injury or currently using an Ambulatory Assistive Device (Walker, Cane, Wheelchair, Crutches, etc.)? Inpatient: Screened on floor PATIENT GENDER DATA: Assigned male at PATIENT RELEVANT IMPLANT DATA REVIEWED: Not Applicable PATIENT PRESENTS WITH AN IMPLANTABLE OR ATTACHED CONDITIONING COACH: No RADIOLOGY DEPARTMENT: General X-ray: Exam(s) Completed: Chest X-Ray PERIPHERAL IV DATA: Not applicable SIGNED BY: RT Gris(R) May 27, 2025 5:24 AM [facility] 05-26-2025 Note HNO ID: [id number] Author: NAVDEEP MANDEL RT(R) Service: ? Author Type: Technologist Type: Progress Notes Filed: 05/26/2025 18:34 Note Text: Radiology Service Progress Note PATIENT NAME: Pete Conley DATE OF SERVICE: May 26, 2025 TIME: 6:34 PM PATIENT IDENTITY VERIFICATION COMPLETED USING TWO (2) IDENTIFIERS: Name and Date of confirmed by patient verbally. FALL SCREENING: Has the patient had 2 falls in the last year or 1 fall with injury or currently using an Ambulatory Assistive Device (Walker, Cane, Wheelchair, Crutches, etc.)? Emergency Room Patient: Screened in ED PATIENT GENDER DATA: Assigned male at PATIENT RELEVANT IMPLANT DATA REVIEWED: Not Applicable PATIENT PRESENTS WITH AN IMPLANTABLE OR ATTACHED CONDITIONING COACH: No RADIOLOGY DEPARTMENT: General X-ray: Exam(s) Completed: Chest X-Ray PERIPHERAL IV DATA: Not applicable SIGNED BY: RT Adeola(R) May 26, 2025 6:34 PM [facility] 05-26-2025 Note SARS-COV-2 (AGENT OF COVID-19) RNA: Not detected INFLUENZA A RNA: Not detected INFLUENZA B RNA: Not detected RESPIRATORY SYNCYTIAL VIRUS (RSV) RNA: Not detected [facility] Comment on above: Performed By: #### 5 7021-8 #### [facility] CLIA [id number] [address] [place] [address] [place] #### [id number] #### [facility] CLIA [id number] [address] [place] [address] [place] 05-21-2025 Note HNO ID: [id number] Author: GEREMIAS FRAUSTO RT(R) Service: ? Author Type: Technologist Type: Progress Notes Filed: 05/21/2025 19:33 Note Text: Radiology Service Progress Note DATE OF SERVICE: May 21, 2025 TIME: 7:30 PM PATIENT IDENTITY VERIFICATION COMPLETED USING TWO (2) STANDARD IDENTIFIERS: Name and Date of confirmed by patient verbally. FALL SCREENING: Has the patient had 2 falls in the last year or 1 fall with injury or currently using an Ambulatory Assistive Device (Walker, Cane, Wheelchair, Crutches, etc.)? Emergency Room Patient: Screened in ED PATIENT GENDER DATA: Assigned male at PATIENT RELEVANT IMPLANT DATA REVIEWED: Yes PATIENT PRESENTS WITH AN IMPLANTABLE OR ATTACHED CONDITIONING COACH: No ALLERGIES: Reviewed and unchanged CONTRAST ALLERGY: NO. EXAM: CT -CONTRAST INDUCED NEPHROPATHY RISK FACTORS: ENDSTAGE RENAL DISEASE - PATIENT ON DIALYSIS CREATININE: Creatinine Date Value Ref Range Status 05/21/2025 12.13 (H) 0.73 - 1.22 mg/dL Final 01/21/2025 7.05 (H) 0.73 - 1.22 mg/dL Final 01/20/2025 7.27 (H) 0.73 - 1.22 mg/dL Final Estimated Glomerular Filtration Rate Date Value Ref Range Status 05/21/2025 4 (L) >=60 mL/min/1.73m? Final Comment: Estimated Glomerular Filtration Rate (eGFR) is calculated using the 2020 CKD-EPI creatinine equation. This equation utilizes serum creatinine, sex, and age as parameters. The creatinine assay has traceable calibration to isotope dilution-mass spectrometry. Refer to KDIGO guidelines for clinical interpretation. In patients with unstable renal function, e.g. those with acute kidney injury, the eGFR may not accurately reflect actual GFR. eGFR- Date Value Ref Range Status 03/05/2023 19 Final Comment: eGFR >= 60 Indicates normal kidney function. * eGFR IS AN ESTIMATE * (AFR JOSSELIN = ) (non-AFR AM = NON-) MDRD calculation used in the eGFR should not be used to dose medications. For further limitations of the eGFR please refer to the Physician Website or the National Kidney Disease Education Program website (www.nkdep.nih.gov). P.O.C.T. RESULTS: N/A May 21, 2025 TREATMENT: No Hydration needed: End Stage Renal Disease, patient with set dialysis schedule. PERIPHERAL IV DATA: Ambulatory: A peripheral IV was started in the Left forearm with a Angio cath: 20 gauge. RADIOLOGY DEPARTMENT: CT; Exam(s) Completed: PE Study. Anesthesia: No SIGNATURE: RT Adria(R) PATIENT NAME: Pete Conley DATE: May 21, 2025 TIME: 7:30 PM [facility] 05-21-2025 Note HNO ID: [id number] Author: JEANETTE DODD RT(R) Service: ? Author Type: Technologist Type: Progress Notes Filed: 05/21/2025 16:43 Note Text: Radiology Service Progress Note PATIENT NAME: Pete Conley DATE OF SERVICE: May 21, 2025 TIME: 4:43 PM PATIENT IDENTITY VERIFICATION COMPLETED USING TWO (2) IDENTIFIERS: Name and Date of confirmed by patient verbally and Name and Date of confirmed by identification band. FALL SCREENING: Has the patient had 2 falls in the last year or 1 fall with injury or currently using an Ambulatory Assistive Device (Walker, Cane, Wheelchair, Crutches, etc.)? No PATIENT GENDER DATA: Assigned male at PATIENT RELEVANT IMPLANT DATA REVIEWED: Not Applicable PATIENT PRESENTS WITH AN IMPLANTABLE OR ATTACHED CONDITIONING COACH: No RADIOLOGY DEPARTMENT: General X-ray: Exam(s) Completed: Chest X-Ray PERIPHERAL IV DATA: Not applicable SIGNED BY: RT Monique(R) May 21, 2025 4:43 PM [facility] 05-21-2025 Note SARS-COV-2 (AGENT OF COVID-19) RNA: Not detected INFLUENZA A RNA: Not detected INFLUENZA B RNA: Not detected RESPIRATORY SYNCYTIAL VIRUS (RSV) RNA: Not detected [facility] Comment on above: Performed By: #### 5 7021-8 #### [facility] CLIA [id number] [address] [place] [address] [place] #### [id number] #### [facility] CLIA [id number] [address] [place] [address] 05-04-2025 Telephone encounter Note Call placed to patient regarding appointment scheduled for this date. No answer, message left advising patient that he could be seen sooner than 5:00 if here, appointment line number also provided in the event that patient would like to reschedule follow-up. Paola Hanna RN [facility] 05-04-2025 Miscellaneous Notes Call placed to patient regarding appointment scheduled for this date. No answer, message left advising patient that he could be seen sooner than 5:00 if here, appointment line number also provided in the event that patient would like to reschedule follow-up. Paola Hanna RN documented in this encounter [facility] 04-24-2025 Telephone encounter Note Order placed Please instruct patient to call [facility] rehab at [phone] if he wishes for [facility]. Patient will have to provide you with local Hospital to fax order if he is not going to [facility] No my chart thanks [facility] 04-24-2025 Miscellaneous Notes Order placed Please instruct patient to call [facility] rehab at [phone] if he wishes for [facility]. Patient will have to provide you with local Hospital to fax order if he is not going to [facility] No my chart thanks Sabine from [facility] called requesting cardiac rehab order for pt pt was discharged this week from [facility] pt will need to be told where to go since he will not know documented in this encounter [facility] 04-24-2025 Telephone encounter Note Sabine from [facility] called requesting cardiac rehab order for pt pt was discharged this week from [facility] pt will need to be told where to go since he will not know [facility] 04-06-2025 Note [facility] 04-06-2025 History of Present illness Narrative Images from the original note were not included. Heart, Vascular and Thoracic [place] [facility] Department of Cardiovascular Medicine SECTION OF INTERVENTIONAL CARDIOLOGY OUTPATIENT VISIT DATE April 06, 2025 OUTPATIENT VISIT TYPE ESTABLISHED PRIMARY CARE PHYSICIAN: Moises Prater [address] [place] [address] REFERRING PHYSICIAN: Shukri Riggs MD [address] [facility] [address] CHIEF COMPLAINT: Patient presents with: CARD Follow Up 3 Month HISTORY OF PRESENT ILLNESS: Mr. Conley is a 75 year old male who presents today for follow-up visit for coronary artery disease, mitral valve regurgitation, dilated cardiomyopathy. He denies chest pain, shortness of breath, orthopnea, PND, palpitations, lightheadedness, syncope, and leg swelling. He does admit to dyspnea on exertion. PAST CARDIAC HISTORY: Patient is a 74-year-old male with a history of coronary artery disease, diabetes, end-stage renal disease on peritoneal dialysis, COPD, hypertension, hyperlipidemia, MACY, HFrEF, mitral valve regurgitation who presents for further evaluation of coronary artery disease. His cardiac history begins about a year ago when he was noted to have a decrease in LV function with significant mitral regurgitation. He underwent cardiac catheterization which demonstrated multivessel disease. FFR of the LAD was abnormal. He was seen by cardiothoracic surgery and deemed a high surgical candidate. He was treated medically at that time. He states that over time, his shortness of breath has improved mildly with medical therapy and intensification of peritoneal dialysis. He has some back issues and was due to get back surgery. He was deemed a high risk surgical candidate and referred for further evaluation. Underwent right left heart catheterization followed by admission. He underwent CABG x 3 and mitral valve repair 12/26/[address] Cardoza. He presents today for follow-up. 10/30/23 CARDIAC CATH DIAGNOSTIC FINDINGS + + Coronary Anatomy: Right Dominant Injection Site(s): Coronary Artery LMT: _ The LMT is normal. LAD: _ The mid LAD is narrowed 60 % - focal disease. Additional Comment: DFR% of the mid LAD stenosis was 0.79 which is significantly abnormal indicating hemodynamically significant stenosis. 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 _ The mid circumflex is narrowed 80 % - focal disease. RAMUS: _ Ramus Status: Not Applicable. RCA: _ The proximal RCA - moderate diffuse disease. _ The mid RCA is narrowed 80 % - severe diffuse disease. _ The distal RCA is narrowed 30 % - focal disease. + + IMPRESSION/PLAN + + Impression:Severe multivessel CAD Severely elevated right sided pressures Moderate to severe pulmonary HTN Severely elevated LVEDP Recommended Treatment: Medical Therapy, CABG and Valve repair / replacement. 08/27/24 ECG 10/27/24 CAROTID US RIGHT SIDE Common carotid artery: Patent. Internal carotid artery: 50-69% stenosis consistent with moderate carotid artery disease. Shadowing noted in the bulb and proximal internal carotid artery. Vertebral artery: Patent and antegrade flow noted. LEFT SIDE Common carotid artery: Patent. Internal carotid artery: <50% stenosis consistent with mild carotid artery disease. Vertebral artery: Patent and antegrade flow noted. 10/30/23 [facility] CONCLUSIONS: - Exam indication: Initial evaluation valvular heart disease - The left ventricle is dilated. Left ventricular systolic function is moderately decreased. EF = 30-35% (visual est.) Indeterminate left ventricular diastolic dysfunction due to >2+ MR. - The right ventricle is dilated. Right ventricular systolic function is low normal. - There is moderately severe (3+) mitral valve regurgitation due to restricted leaflet motion likely related to ischemic heart disease. Regurgitant orifice area (PISA) is 0.29 cm . - Estimated right ventricular systolic pressure is 47 mmHg plus right atrial pressure. Estimated right atrial pressure is not included as the IVC was not seen. - Exam was compared with the prior OUTSIDE echocardiographic exam performed on 09/24/23. No significant change noted when compared to report of prior study. Latest Ref Rng 02/22/2024 Cholesterol, Total <200 mg/dL 96 Triglyceride <150 mg/dL 95 HDL Cholesterol >39 mg/dL 36 (L) Non HDL Cholesterol <130 mg/dL 60 Fasting Time hrs 14 VLDL Cholesterol <30 mg/dL 19 TC:HDL Ratio <5.10 2.67 LDL Cholesterol <100 mg/dL 41 LDL:HDL Ratio <2.54 1.14 11/25/24 Echo CONCLUSIONS: - Technically difficult exam due to body habitus. - Exam indication: Evaluation of known cardiomyopathy with a change in clinical status - The left ventricle is mildly dilated. Left ventricular systolic function is severely decreased. EF = 24 5% (2D 4-ch.) Definity contrast used for endocardial border detection. - The right ventricle is dilated. Right ventricular systolic function is mildly decreased. - The left atrial cavity is severely dilated. - There is moderately severe (3+) mitral holosystolic valve regurgitation due to restricted leaflet motion. Regurgitant orifice area (PISA) is 0.32 cm . MR assessment with a SBP of 128 mm Hg. Mechanism suggests ventricular functional mitral regurgitation. - Negative agitated saline study on prior [facility] (10/30/2023). - Exam was compared with the prior CC echocardiographic exam performed on 10/30/2023 ([facility] [place]). Calculated LVEF is lower on today's study, although similar in visual appearance as compared to prior. 12/15/24 Cardiac Catheterization Coronary Anatomy: Right Dominant Injection Site(s): Coronary Artery LMT: The LMT has mild diffuse disease. Additional Comment: LMT is a large caliber vessel that bifurcates to form the LAD and LCx. LAD: The proximal LAD is narrowed 70 % - focal disease. The 1st diagonal is narrowed 70 % - focal disease. The 2nd diagonal is narrowed 60 % - focal disease. Additional Comment: The LAD is a large caliber vessel that subtends two moderate caliber diagonal branch vessels and several small septal perforators prior to reaching the apex. There is a severe, 70% lesion in the proximal LAD just prior to the ostium of the D1 branch. The remainder of the LAD has hngo-ud-axqrzwin diffuse disease. The D1 and D2 branches both have 70% lesions at their ostia and are otherwise mildly diseased. Overall, the appearance of the LAD and its branches appears similar to prior angiography. LCX: The 1st obtuse marginal circumflex - CONDUIT REAMER OPERATOR. The 2nd obtuse marginal circumflex - CONDUIT REAMER OPERATOR. The mid circumflex is narrowed 80 % - focal disease. Additional Comment: LCx is a large caliber, non-dominant vessel that has a CONDUIT REAMER OPERATOR of its OM1 and OM2 branches at their ostia. There is an 80% stenosis in the mid-LCx near the occluded ostia of the OM1. The OM2 shows evidence of bridging vessels that are diminuitive. The LCx continues in the AV groove and gives rise to an atrial branch as well as a branching posterolateral vessel. The remainder of the LCx is vyhr-hg-kelyotbiok diseased. RAMUS: The Ramus is Absent. RCA: The mid RCA is narrowed 70 % - focal disease. Additional Comment: RCA is a large, dominant vessel that subtends several eqell-sp-gnwshpjb acute marginal branches. Distally, the RCA bifurcates to give rise to the R-PDA and the R-PLV. There is a severe, 70% lesion in the mid RCA. The remainder of the RCA and its branches have lnqclnda-yt-efzrqm diffuse disease. +-------+ IMAGING +-------+ Intravascular imaging not performed. + + HEMODYNAMIC INTERROGATION + + Hemodynamic interrogation not performed. + + HEMODYNAMICS + + General: RA Mean 22.00 RV 65.00/25.00 PA 60.00/38.00 (45.00) PCWP Mean 32.00 Cardiac Outputs: KOLE CO 7.60 KOLE CI 3.20 KOLE HR 65.00 KOLE SV 116.92 KOLE SVI 49.23 + --------+ HEMODYNAMIC CONDITIONS (SENSIS ENTERED): + --------+ Valve Gradients: Oximetry: # Site O2-Saturation O2-Cont. Sample Time PO2 1 Main Pulmonary Artery 72.0 140.1 12/15/2024 12:45:59 PM 1 Aorta 90.0 175.5 12/15/2024 12:46:03 PM Cardiac Outputs: Vascular Resistance: Systolic Area Index (TWAN): + + IMPRESSION/PLAN + + Impression: 1. Right dominant coronary system 2. Severe multivessel CAD unchanged from prior angiography in 10/2023 3. Markedly elevated biventricular filling pressures with both pre and post-capillary pulmonary hypertension. 4. Preserved cardiac output/index Recommended Treatment: Medical Therapy, CABG and PCI. 12/18/24 [facility] CONCLUSIONS: - Exam indication: Evaluation of known cardiomyopathy with a change in clinical status - The left ventricle is dilated. Left ventricular systolic function is severely decreased. EF = 25 5% (visual est.) - The right ventricle is dilated. Right ventricular systolic function is moderately decreased. - The left atrial cavity is severely dilated. - There is severe (3+ - 4+) mitral valve regurgitation due to restricted leaflet motion. Regurgitant orifice area (PISA) is 0.41 cm . Apical tethering, posterior greater than anterior leaflet restriction. - There is no patent foramen ovale as detected by Doppler and agitated saline contrast. - Exam was compared with the prior echocardiographic exam performed on 11/25/2024 (TTE). Similar findings. 12/19/24 NM PET Viability CONCLUSIONS: 1. PET Perfusion Study: Abnormal. 2. There is moderate (10-20%) ischemia in the territory of the LCX. 3. There is mild (<10%) ischemia in the territory of the LAD. 4. There is mild (<10%) ischemia in the territory of the RCA. 5. There is transient ischemic dilation of the LV cavity with stress. 6. No evidence of scarred or hibernating myocardium; nearly all myocardium appears viable. 7. Left ventricle is moderately dilated. The left ventricle systolic function is severely decreased. 8. Right ventricle is mildly dilated. The right ventricle systolic function is normal. 9. This is a high risk scan due to area of scar/ischemia, calculated LVEF and TID. Gated Stress TOF:SC:CTAC Gated Rest TOF:SC:CTAC LVEF % 26 23 12/25/24 CABG/MVR: Dr. Cardoza Surgery : Mitral Valve Annuloplasty ( Profile 3D 32 mm ) + Coronary Artery Bypass Grafting x 3 ( MARTINEZ- LAD, Ao-SVG- OM, Ao-SVG- PD) 04/06/25 Echo CONCLUSIONS: - Exam indication: H/O CABG & MVr - The left ventricle is moderately dilated. Left ventricular systolic function is severely decreased. EF = 25 5% (2D 4-ch.) Definity contrast used for endocardial border detection. - The right ventricle is dilated. Right ventricular systolic function is mildly decreased. - The left atrial cavity is severely dilated. - The right atrial cavity is dilated. - 3D profile (size #32). There is moderately severe (3+) mitral valve regurgitation. The peak gradient is 9 mmHg and the mean gradient is 4 mmHg. Prior gradients were 14/9 mmHg. Today's gradients were obtained at 81 bpm. - Estimated right ventricular systolic pressure is 57 mmHg consistent with moderate pulmonary hypertension. Estimated right atrial pressure is 15 mmHg based on IVC assessment. - Exam was compared with the prior echocardiographic exam performed on 01/02/2025. MR appears progressed. PAST MEDICAL HISTORY Diagnosis Date Acute and chronic respiratory failure with hypoxia ([facility]) Bilateral carotid artery stenosis 10/26/2023 Right internal carotid artery: 60-79% stenosis. Left: 20-39% stenosis. Monitored by Vascular Surgeon Dr. Domingo Monsalve. 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 Dolores Welsh COPD (chronic obstructive pulmonary disease) ([facility]) Lead Portfolio Manager Dr. Crystal Bauer Diabetes mellitus type 2 ([facility]) History of 2019 novel coronavirus disease (COVID-19) 09/08/2021 History of cardiac cath 10/30/2023 LAD: Mid LAD is narrowed 60% (DFR 0.79% - hemodynamically significant stenosis). Mid LCx is narrowed 80%. Mid RCA is narrowed 80%. Stent was not placed. CABG indicated. Pt declined CABG due to poor surgical candidate related to many comobidities. Patient elects medical therapy. History of cardiac monitoring 10/02/2023 Patient wore event monitor secondary to palpitations and syncope and collapse. Underlying sinus rhythm was appreciated with excellent heart rate variability. Heart rate ranging 50-120, average heart rate 70. Very rare PVC's are isolated no sustained evidence of atrial fibrillation or ventricular tachycardia. Patient is on Coreg 6.25 mg BID. Symptoms have no relationship to any arrhythmias. History of cardiovascular stress test 10/10/2021 -Impression: Enlarging dilated LV and the setting of global hypokinesis. Calculated EF 39%. This may represent the sequela of chronic hypertension or other cardiomyopathy. No images evidence of stress-induced myocardial ischemia. History of echocardiogram 03/18/2021 Echocardiogram demonstrates a suboptimal study. EF 50 to 55%. Moderate concentric LVH. Class I diastolic dysfunction. Left atrium is mildly dilated. Mild a S. Mild to moderate MR. Mild TR. Borderline to mild PHT. History of echocardiogram 10/04/2022 EF 45-50%. Left ventricle cavity size is normal. Wall thickness is normal. Systolic funciton is mildly reduced. Hypokinesis of the anterolateral myocardium. Hypokinesis of the inferioir myocardium Grade 2 diastolic dysfunction. Mitral valve the annulus is mildly calcified. The leaflets are moderately thickened. Thickening. Severe regurgitation. Left atrium is mildly dilated. History of echocardiogram 12/22/2022 EF 50% demonstrates concentric left ventricular hypertrophy. Slight hypokinesis of distal septal wall. Mild to moderate MR. Mild TR. Aortic valve is sclerotic, thickened, but the valve area is noted to be normal. History of echocardiogram w/ Bubble Study 09/24/2023 EF 30-35%, LV- moderately enlarged. LA-moderately enlarged. RA-moderately enlarged. Moderate to severe MV regurgitation. Moderate TV regurgitation. Moderate pulmonary hypertension. History of echocardiography 10/07/2021 -Echocardiogram demonstrates of the difficult study with minimal information obtainable. LV is dilated with an EF at 45 to 50%. Diastolic function is indeterminate. Aortic valve is poorly visualized but no evidence for aortic stenosis by Doppler analysis. Moderate mitral annular calcification without hemodynamically significant MS. Mild MR. History of smoking History of transesophageal echocardiography ([facility]) 10/30/2023 EF 30-35%. Moderately severe MR with PISA of 0.29 cm . Mild TR. HTN (hypertension) Obstructive sleep apnea on CPAP Peritoneal dialysis status 6-days per week, does not do on Sunday. Severe protein-calorie malnutrition (HCC) 12/28/2024 PAST SURGICAL HISTORY Procedure Laterality Date PAST SURGICAL HISTORY OF Right TMA TONSILLECTOMY HX SOCIAL HISTORY SOCIAL HISTORY[1] FAMILY HISTORY Problem Relation Age of Onset Diabetes Father No Known Problems Sister Diabetes Sister Heart disease Sister Arrythmias Brother Diabetes Brother ALLERGIES: ALLERGIES Allergen Reactions Amlodipine Swelling Aspirin Other: See Comments tacchycardia Clams Unknown Metformin Intolerance Victoza [Liraglutid* Other: See Comments MEDICATIONS: Current Outpatient Medications Medication Sig atorvastatin (LIPITOR) 80 mg tablet Take 1 tablet by mouth daily at bedtime. clopidogrel (PLAVIX) 75 mg tablet Take 1 tablet by mouth every morning. tamsulosin (FLOMAX) 0.4 mg Take 1 capsule by mouth once daily. acetaminophen (TYLENOL) 325 mg tablet Take 2 tablets by mouth every 4 hours as needed for pain. albuterol (PROVENTIL) 2.5 mg /3 mL (0.083 %) nebulizer solution Use 3 mL via nebulizer every 4 hours as needed for wheezing/shortness of breath. aluminum-magnesium hydroxide-simethicone 200-200-20 mg/5 mL suspension Take 30 mL by mouth every 4 hours as needed (Second Line Therapy). dextrose (TRUEPLUS) 15 gram/32 mL oral gel Take 32 mL by mouth as needed. diclofenac (VOLTAREN) 1 % topical gel Apply 2 g to affected area four times daily. magnesium hydroxide (MOM) 400 mg/5 mL suspension Take 30 mL by mouth every 6 hours as needed. midodrine (PROAMATINE) 2.5 mg tablet Take 1 tablet by mouth every 8 hours. MULTIVITAMIN-FERROUS FUMARATE-FOLIC ACID 18 MG-400 MCG TABLET Take 1 tablet by mouth daily with breakfast. senna-docusate (SENNA-S) 8.6-50 mg per tablet Take 2 tablets by mouth two times a day. zinc oxide (DESITIN) 13 % cream Apply to affected area as needed. insulin glargine 100 unit/mL (3 mL) Inject 34 Units subcutaneously once daily. daily at 12 pm insulin lispro 100 unit/mL injection daily at 3 am aspirin 81 mg chewable tablet Take 1 tablet by mouth once daily. B Complex-Vitamin C-Folic Acid (LENA-VIT) 0.8 mg tab Take 1 tablet by mouth once daily. pantoprazole DR (PROTONIX) 20 mg tablet Take 1 tablet by mouth daily at 6 am. polyethylene glycol 3350 17 gram packet Take 1 packet by mouth once daily. Dissolve dose in 4 - 8 ounces of liquid and take as directed. insulin lispro (HUMALOG KWIKPEN INSULIN) 100 unit/mL Inject 4 units with breakfast, 3 units with lunch, 2 units with dinner plus sliding scale If Blood Glucose (mg/dL) is <110 Give 0 units 111-150 Give 1 units 151-200 Give 3 unit 201-250 Give 6 units 251-300 Give 9 units 301-350 Give 12 units 351-400 Give 15 units >400 Give 15 units and Call physician. insulin regular human 100 unit/mL injection Inject 12 Units subcutaneously once daily. daily at 10 pm at start of PD - hold if PD not initiated insulin lispro 100 unit/mL injection Inject 0-15 Units subcutaneously daily at bedtime. CPAP 1 Each by Mask route daily at bedtime. [employer] OXYGEN, HOME THERAPY, Inhale 1.5 L/min as instructed as needed for wheezing/shortness of breath. Current Facility-Administered Medications Medication Dose Route Frequency sodium chloride 0.9 % (flush) 10 mL (BD POSIFLUSH) 10 mL INTRAVENOUS DIRECTED PRN REVIEW OF SYSTEMS: GENERAL: negative for: fevers, chills, and change in weight HEENT: negative for: headaches, hearing loss, difficulty swallowing, visual changes, nose bleeds, dentures, own teeth SKIN: rashes, lesions, and ulcers RESPIRATORY: SEE HPI CARDIOVASCULAR: See HPI GASTROINTESTINAL: negative for: abdominal pain, nausea, vomiting, difficulty or painful swallowing, and melanotic stools GENITOURINARY: negative for: dysuria, frequency, nocturia, and male potency MUSCULOSKELETAL: negative for: joint pain, joint swelling, muscle pain or myalgias, and pain with walking NEUROLOGIC: negative for: numbness, tingling, and sensation of pins and needles HEMATOLOGY: negative for: bruising easily, prolonged bleeding, anemia, and cancer ENDOCRINE: negative for: cold or heat intolerance, polyuria, polydipsia, goiter, diabetes, and thyroid disease PSYCH: negative for: sleep disturbance, mood disorders, and recent psychosocial stressors PHYSICAL EXAMINATION: BP 133/68 Pulse 86 Wt 241 lb (109.3kg) General: Well appearing, in no acute distress, speaking in complete sentences. Skin: No clubbing, no cyanosis. Head/Eyes: Extra ocular movements intact Mouth: Teeth in good repair. Neck: No jugular venous distention, no carotid bruits, carotids have a normal upstroke, no palpable thyromegaly. Lungs: Clear to auscultation and no rales Heart: Regular rhythm, PMI not displaced, S1, S2 normal, no S3, no S4, no heaves, no rub and no murmur. PV Pulses:Pulses intact Abdomen: Soft, nontender, bowel sounds normal, no palpable organomegaly, no bruits. Extremities: No peripheral edema . Grade 2/4 distal pulses bilaterally. Edema Scale: No Musculoskeletal: Normal gait and ambulation Neuro: Oriented to time, place and person CARDIOVASCULAR MEDICINE TESTIN04/06/25 Echo Last ECHO Result Conclusion ECHO Collected: 04/06/2025 10:47 AM (Final result) Impression: CONCLUSIONS: - Exam indication: H/O CABG & MVr - The left ventricle is moderately dilated. Left ventricular systolic function is severely decreased. EF = 25 5% (2D 4-ch.) Definity contrast used for endocardial border detection. - The right ventricle is dilated. Right ventricular systolic function is mildly decreased. - The left atrial cavity is severely dilated. - The right atrial cavity is dilated. - 3D profile (size #32). There is moderately severe (3+) mitral valve regurgitation. The peak gradient is 9 mmHg and the mean gradient is 4 mmHg. Prior gradients were 14/9 mmHg. Today's gradients were obtained at 81 bpm. - Estimated right ventricular systolic pressure is 57 mmHg consistent with moderate pulmonary hypertension. Estimated right atrial pressure is 15 mmHg based on IVC assessment. - Exam was compared with the prior CC echocardiographic exam performed on 01/02/2025. MR appears progressed. * * * Final * * * Last [facility] Result Conclusion ECHO TRANSESOPHAGEAL Collected: 12/18/2024 7:47 AM (Final result) Impression: CONCLUSIONS: - Exam indication: Evaluation of known cardiomyopathy with a change in clinical status - The left ventricle is dilated. Left ventricular systolic function is severely decreased. EF = 25 5% (visual est.) - The right ventricle is dilated. Right ventricular systolic function is moderately decreased. - The left atrial cavity is severely dilated. - There is severe (3+ - 4+) mitral valve regurgitation due to restricted leaflet motion. Regurgitant orifice area (PISA) is 0.41 cm . Apical tethering, posterior greater than anterior leaflet restriction. - There is no patent foramen ovale as detected by Doppler and agitated saline contrast. - Exam was compared with the prior CC echocardiographic exam performed on 11/25/2024 (TTE). Similar findings. * * * Final * * * Last EKG Result Conclusion ECG COMPLETE Collected: 01/16/2025 8:08 AM (Final result) Impression: ATRIAL-SENSED VENTRICULAR-PACED RHYTHM ABNORMAL ECG Confirmed by BOOKER QUICK M.D. ([id number]) on 02/14/2025 10:43:[address] Result Conclusion CTA CHEST (GATED) W IVCON Exam End: 12/17/2024 9:23 PM (Final result) Impression: IMPRESSION: MITRAL VALVE: leaflet thickening - no leaflet calcification. Moderate mitral annular calcification Mitral Annulus: max. and min. Diameter: 4.7 x 4.2 cm. AREA 14.3 cm2. Circumference 14.0 cm Measurements made in 40% systolic phase of cardiac cycle. max. and min. Diameter: 3.9 x 3.9 cm. AREA 12.4 cm2. Circumference 14.3 cm Measurements made in 80% diastolic phase of cardiac cycle. AORTA: Normal size thoracic and abdominal aorta. No acute aortic pathology. scattered moderate partially calcified wall changes in the descending thoracic and abdominal aorta. LUNGS: mosaic attenuation from small vessel or small airways disease. small bilateral pleural effusions with adjacent atelectasis. MEDIASTINUM: mildly enlarged mediastinal lymph nodes. Clinical correlation is recommended. Other incidental findings as noted in the body of report. Director Game: [facility] Transcribe Date/Time: Dec 18 2024 7:42A Dictated by : RUSSELL SPAULDING MD This examination was interpreted and the report reviewed and electronically signed by: RUSSELL SPAULDING MD on Dec 18 2024 10:41AM EST I have personally reviewed the Echocardiogram. IMPRESSION: Mr. Conley is a 75 year old male who presents for follow-up of coronary artery disease, cardiomyopathy, mitral valve regurgitation status post CABG and MVR. PLAN AND RECOMMENDATIONS: Minimal symptoms from a cardiac standpoint. He can get some dyspnea on exertion. He denies any chest discomfort. Underwent CABG x 3 with a MARTINEZ to the LAD, SVG to OM, SVG to PDA plus #32 profile 3D. Echocardiogram today demonstrates some progression of mitral valve regurgitation. Patient states his dialysis was changed in the last week and it seems as if his UF is higher. Patient still does urinate, however much of his volume dependence is likely related to dialysis. Counseled him on making sure that his weight stays stable. If his mitral valve regurgitation continues to progress to severe, would consider referral to our structural heart team for further evaluation. Patient states his blood pressure is around 100-110 systolic at home. In the past, have been unable to start [place] inhibitor/ARB/ARNI/aldosterone antagonist secondary to hyperkalemia. No indication for SGLT2 inhibitor given dialysis dependence. Attempts to start low-dose carvedilol in the past have been unsuccessful secondary to hypotension. Still on low-dose of midodrine. Patient will continue his current management. He is on antiplatelet and statin medication. Patient will follow-up with me in 6 months or sooner if he has more problems. CONTACT INFORMATION: Shukri Riggs MD, [facility], [facility] Interventional Cardiology [facility] Office: [phone] Appointments: [phone] [1] Social History Tobacco Use Smoking status: Former Current packs/day: 0.00 Average packs/day: 1 pack/day for 14.0 years (14.0 ttl pk-yrs) Types: Cigarettes Start date: 1965 Quit date: 08/20/1979 Years since quittin.6 Smokeless tobacco: Never Vaping Use Vaping status: Never Used Substance Use Topics Alcohol use: Never Drug use: Never documented in this encounter [facility] 03-13-2025 History of Present illness Narrative [facility] Department of Pulmonary & Sleep Medicine Crystal Bauer DO Pulmonary Progress Note REFERRING PROVIDER: Hector Fox PA-C Edmakayla Conley is a 74 year old male who is returning for follow up evaluation of COPD and MACY on CPAP. History of Illness Since Last Visit: Patient is here for a follow up. Continues on CPAP nightly and benefits with use. Continues on nocturnal oxygen set at 1.5L bled into his CPAP. Denies any trouble getting his supplies. He had a triple bypass, pace maker with defibulator and valve repair in December. He feels his breathing is improving since the surgery. He is on peritoneal dialysis nightly. He has albuterol nebulizer solution but does not need this. INancy OCCA, transcribing for Crystal Bauer DO. HISTORY PAST MEDICAL HISTORY Diagnosis Date Acute and chronic respiratory failure with hypoxia ([facility]) Bilateral carotid artery stenosis 10/26/2023 Right internal carotid artery: 60-79% stenosis. Left: 20-39% stenosis. Monitored by Vascular Surgeon Dr. Domingo Monsalve. 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 Dolores Welsh COPD (chronic obstructive pulmonary disease) ([facility]) Lead Portfolio Manager Dr. Crystal Bauer Diabetes mellitus type 2 ([facility]) History of 2019 novel coronavirus disease (COVID-19) 09/08/2021 History of cardiac cath 10/30/2023 LAD: Mid LAD is narrowed 60% (DFR 0.79% - hemodynamically significant stenosis). Mid LCx is narrowed 80%. Mid RCA is narrowed 80%. Stent was not placed. CABG indicated. Pt declined CABG due to poor surgical candidate related to many comobidities. Patient elects medical therapy. History of cardiac monitoring 10/02/2023 Patient wore event monitor secondary to palpitations and syncope and collapse. Underlying sinus rhythm was appreciated with excellent heart rate variability. Heart rate ranging 50-120, average heart rate 70. Very rare PVC's are isolated no sustained evidence of atrial fibrillation or ventricular tachycardia. Patient is on Coreg 6.25 mg BID. Symptoms have no relationship to any arrhythmias. History of cardiovascular stress test 10/10/2021 -Impression: Enlarging dilated LV and the setting of global hypokinesis. Calculated EF 39%. This may represent the sequela of chronic hypertension or other cardiomyopathy. No images evidence of stress-induced myocardial ischemia. History of echocardiogram 03/18/2021 Echocardiogram demonstrates a suboptimal study. EF 50 to 55%. Moderate concentric LVH. Class I diastolic dysfunction. Left atrium is mildly dilated. Mild a S. Mild to moderate MR. Mild TR. Borderline to mild PHT. History of echocardiogram 10/04/2022 EF 45-50%. Left ventricle cavity size is normal. Wall thickness is normal. Systolic funciton is mildly reduced. Hypokinesis of the anterolateral myocardium. Hypokinesis of the inferioir myocardium Grade 2 diastolic dysfunction. Mitral valve the annulus is mildly calcified. The leaflets are moderately thickened. Thickening. Severe regurgitation. Left atrium is mildly dilated. History of echocardiogram 12/22/2022 EF 50% demonstrates concentric left ventricular hypertrophy. Slight hypokinesis of distal septal wall. Mild to moderate MR. Mild TR. Aortic valve is sclerotic, thickened, but the valve area is noted to be normal. History of echocardiogram w/ Bubble Study 09/24/2023 EF 30-35%, LV- moderately enlarged. LA-moderately enlarged. RA-moderately enlarged. Moderate to severe MV regurgitation. Moderate TV regurgitation. Moderate pulmonary hypertension. History of echocardiography 10/07/2021 -Echocardiogram demonstrates of the difficult study with minimal information obtainable. LV is dilated with an EF at 45 to 50%. Diastolic function is indeterminate. Aortic valve is poorly visualized but no evidence for aortic stenosis by Doppler analysis. Moderate mitral annular calcification without hemodynamically significant MS. Mild MR. History of smoking History of transesophageal echocardiography (MILA) 10/30/2023 EF 30-35%. Moderately severe MR with PISA of 0.29 cm . Mild TR. HTN (hypertension) Obstructive sleep apnea on CPAP Peritoneal dialysis status 6-days per week, does not do on Sunday. Severe protein-calorie malnutrition (HCC) 12/28/2024 PAST SURGICAL HISTORY Procedure Laterality Date PAST SURGICAL HISTORY OF Right TMA TONSILLECTOMY HX Social History Tobacco Use Smoking status: Former Current packs/day: 0.00 Average packs/day: 1 pack/day for 14.0 years (14.0 ttl pk-yrs) Types: Cigarettes Start date: 1965 Quit date: 08/20/1979 Years since quittin.5 Smokeless tobacco: Never Vaping Use Vaping status: Never Used Substance Use Topics Alcohol use: Never Drug use: Never ALLERGIES: ALLERGIES Allergen Reactions Amlodipine Swelling Aspirin Other: See Comments tacchycardia Clams Unknown Metformin Intolerance Victoza [Liraglutid* Other: See Comments MEDICATIONS: Current Outpatient Medications Medication Sig atorvastatin (LIPITOR) 80 mg tablet Take 1 tablet by mouth daily at bedtime. clopidogrel (PLAVIX) 75 mg tablet Take 1 tablet by mouth every morning. tamsulosin (FLOMAX) 0.4 mg Take 1 capsule by mouth once daily. acetaminophen (TYLENOL) 325 mg tablet Take 2 tablets by mouth every 4 hours as needed for pain. albuterol (PROVENTIL) 2.5 mg /3 mL (0.083 %) nebulizer solution Use 3 mL via nebulizer every 4 hours as needed for wheezing/shortness of breath. diclofenac (VOLTAREN) 1 % topical gel Apply 2 g to affected area four times daily. insulin glargine 100 unit/mL (3 mL) Inject 34 Units subcutaneously once daily. daily at 12 pm aspirin 81 mg chewable tablet Take 1 tablet by mouth once daily. B Complex-Vitamin C-Folic Acid (LENA-VIT) 0.8 mg tab Take 1 tablet by mouth once daily. pantoprazole DR (PROTONIX) 20 mg tablet Take 1 tablet by mouth daily at 6 am. insulin lispro (HUMALOG KWIKPEN INSULIN) 100 unit/mL Inject 4 units with breakfast, 3 units with lunch, 2 units with dinner plus sliding scale If Blood Glucose (mg/dL) is <110 Give 0 units 111-150 Give 1 units 151-200 Give 3 unit 201-250 Give 6 units 251-300 Give 9 units 301-350 Give 12 units 351-400 Give 15 units >400 Give 15 units and Call physician. CPAP 1 Each by Mask route daily at bedtime. [employer] OXYGEN, HOME THERAPY, Inhale 1.5 L/min as instructed as needed for wheezing/shortness of breath. aluminum-magnesium hydroxide-simethicone 200-200-20 mg/5 mL suspension Take 30 mL by mouth every 4 hours as needed (Second Line Therapy). dextrose (TRUEPLUS) 15 gram/32 mL oral gel Take 32 mL by mouth as needed. magnesium hydroxide (MOM) 400 mg/5 mL suspension Take 30 mL by mouth every 6 hours as needed. midodrine (PROAMATINE) 2.5 mg tablet Take 1 tablet by mouth every 8 hours. MULTIVITAMIN-FERROUS FUMARATE-FOLIC ACID 18 MG-400 MCG TABLET Take 1 tablet by mouth daily with breakfast. senna-docusate (SENNA-S) 8.6-50 mg per tablet Take 2 tablets by mouth two times a day. zinc oxide (DESITIN) 13 % cream Apply to affected area as needed. insulin lispro 100 unit/mL injection daily at 3 am polyethylene glycol 3350 17 gram packet Take 1 packet by mouth once daily. Dissolve dose in 4 - 8 ounces of liquid and take as directed. insulin regular human 100 unit/mL injection Inject 12 Units subcutaneously once daily. daily at 10 pm at start of PD - hold if PD not initiated insulin lispro 100 unit/mL injection Inject 0-15 Units subcutaneously daily at bedtime. No current facility-administered medications for this visit. IMMUNIZATIONS: There is no immunization history on file for this patient. FAMILY HISTORY Problem Relation Age of Onset Diabetes Father No Known Problems Sister Diabetes Sister Heart disease Sister Arrythmias Brother Diabetes Brother I have personally reviewed the patients past medical history including social, family, surgical, diagnostics, and medications./WS REVIEW OF SYSTEMS Review of Systems Constitutional: Positive for fatigue. HENT: Negative. Eyes: Negative. Respiratory: Positive for apnea and shortness of breath. Cardiovascular: Positive for leg swelling. Gastrointestinal: Positive for abdominal distention. Endocrine: Negative. Genitourinary: Negative. Musculoskeletal: Negative. Skin: Negative. Allergic/Immunologic: Negative. Neurological: Positive for weakness. Hematological: Negative. Psychiatric/Behavioral: Positive for sleep disturbance. Vital Signs: BP 122/71 Pulse 87 Wt 241 lb (109.3kg) SpO2 97% PHYSICAL EXAM: Vitals: BP 122/71 Pulse 87 Wt 241 lb (109.3kg) SpO2 97% Const: Appears appropriate for age, well-developed, well-hydrated, well-nourished and pleasant. No signs of acute distress present and no signs of respiratory distress present. Breasts are examined. External genitalia and rectal exams were not performed. Head/Face: Normal on inspection. Symmetric facies. Eyes: Pupils equal round and reactive to light and accommodation. Visual acuity grossly intact. Corrective lenses ENMT: External ears wnl. Tympanic membranes translucent, with good landmarks bilaterally. Nasal mucosa is pink and moist. Septum is in the midline. Inferior turbinates are normal without hypertrophy. No dental decay. Oropharynx: Appears normal. Tongue appears normal. Mallampati Score: Class IV: Soft palate, base of uvula are wnl. No oral lesions, or candidiasis. Neck: Supple and symmetric. Palpation reveals no lymphadenopathy. Trachea midline. Thyroid is normal size. No JVD. Carotids: 2+upstroke and equal bilaterally, without bruits. Resp: AP diameter is unremarkable. Respiration rate is normal. No use of accessory muscles noted. No wheezing. Percussion is resonant and equal. Lungs are clear bilaterally. Voice resonance is clear. Chest is normal to inspection and palpation. No extranneous sounds, wheeze, rale, rhonchi, rub, dullness to percussion, or egophony. No bronchial breath sounds, or pectoriloquy. No laryngeal stridor. Bibasilar crackles bilaterally CV: S1 is normal. S2 is normal. No murmur, clicks, gallops or rub. Capillary refill is normal. No LV or RV heave. No gross pulse deficits. Abdomen: Positive bowel sounds. No bruits. No tenderness over the abdomen on percussion. No pulsatile masses present. No palpable hepatosplenomegaly. No pulsatile mass, bruit, and inguinal adenopathy, or femoral bruits. Lymph: No palpable or visual regional lymphadenopathy. Musculo: Upper Extremities: Normal muscle tone bilaterally. Normal ROM bilaterally. Lower Extremities: Normal muscle tone. Full ROM bilaterally. No digital clubbing, cyanosis , lymphedema, or pitting edema. Skin: Skin warm and dry with no evidence of unusual rashes or suspicious lesions. No obvious decubiti, or active synovitis. Neuro: Alert and oriented 3. Achilles and patellar DTR's are brisk and symmetrical. Coordination normal. Good mobility of all extremities. Cranial nerves grossly intact. Psych: Affect is normal. Thought process appears clear and appropriate. Obese DATA REVIEW Chest X-rays: 01/11/25 RESULT: Lines, tubes, and devices: Interval placement of left transvenous AICD with electrodes in right atrium, right ventricle and coronary sinus. Feeding tube extends below diaphragm. Lungs and pleura: No pneumothorax. Improving inflation of both lungs. Improving pulmonary edema. No substantial pleural effusions. Cardiomediastinal silhouette: Stable enlarged cardiomediastinal silhouette. Bones and soft tissues: Unremarkable. CT Scans: 12/17/24 IMPRESSION: MITRAL VALVE: leaflet thickening - no leaflet calcification. Moderate mitral annular calcification Mitral Annulus: max. and min. Diameter: 4.7 x 4.2 cm. AREA 14.3 cm2. Circumference 14.0 cm Measurements made in 40% systolic phase of cardiac cycle. max. and min. Diameter: 3.9 x 3.9 cm. AREA 12.4 cm2. Circumference 14.3 cm Measurements made in 80% diastolic phase of cardiac cycle. PFT's: 12/22/24 IMPRESSION: Spirometry indicates no obstruction. The reduced FVC could indicate restriction, recommend lung volumes for definitive determination. The diffusion capacity (corrected for hemoglobin) is normal. Oximetry : 97% saturated at rest on room air. [place] Sleepiness Scale: 4 ASSESSMENT/PLAN: 1. MACY on CPAP - ICD9: 327.23, ICD10: G47.33 (primary diagnosis) Compliant with pap therapy and benefits from use. 2. Coronary artery disease involving [place] coronary artery of [place] heart without angina pectoris - ICD9: 414.01, ICD10: I25.10 S/p cabg/mvrepair/aicd-pacer 3. DCM (dilated cardiomyopathy) (HCC) - ICD9: 425.4, ICD10: I42.0 4. Chronic HFrEF (heart failure with reduced ejection fraction) (HCC) - ICD9: 428.22, ICD10: I50.22 5. End-stage renal disease on peritoneal dialysis (HCC) - ICD9: 585.6, V45.11, ICD10: N18.6, Z99.2 6. Postinflammatory pulmonary fibrosis (HCC) - ICD9: 515, ICD10: J84.10 Mild. Crystal Bauer (Electronically signed expedite mailing) FOLLOW UP: Return in about 1 year (around 03/13/2026). This note was generated with voice recognition software and may contain errors including spelling, grammar, and syntax and mis-recognition of what was dictated that are not fully corrected. I have discussed the recommended treatment, alternative treatments and other treatment options in detail. I have discussed the risks, benefits and side effects of the recommended treatment in detail as well. I have attempted to answer all their questions to their satisfaction, and understanding of the explanation has been voiced. With approval we will pursue the recommended treatment. I, Crystal Bauer, have reviewed and agree with the information in the medical record transcribed by CHELSEY Tejeda . Crystal Bauer DO documented in this encounter [facility] 03-13-2025 Note HNO ID: [id number] Author: CRYSTAL BAUER DO Service: ? Author Type: Physician Type: Progress Notes Filed: 03/13/2025 14:53 Note Text: [facility] Department of Pulmonary AND Sleep Medicine Crystal Bauer DO Pulmonary Progress Note REFERRING PROVIDER: Hector Fox PA-C Edmakayla Conley is a 74 year old male who is returning for follow up evaluation of COPD and MACY on CPAP. History of Illness Since Last Visit: Patient is here for a follow up. Continues on CPAP nightly and benefits with use. Continues on nocturnal oxygen set at 1.5L bled into his CPAP. Denies any trouble getting his supplies. He had a triple bypass, pace maker with defibulator and valve repair in December. He feels his breathing is improving since the surgery. He is on peritoneal dialysis nightly. He has albuterol nebulizer solution but does not need this. INancy OCCA, transcribing for Crystal Bauer DO. HISTORY PAST MEDICAL HISTORY Diagnosis Date Acute and chronic respiratory failure with hypoxia ([facility]) Bilateral carotid artery stenosis 10/26/2023 Right internal carotid artery: 60-79% stenosis. Left: 20-39% stenosis. Monitored by Vascular Surgeon Dr. Domingo Monsalve. 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 Dolores Welsh COPD (chronic obstructive pulmonary disease) ([facility]) Lead Portfolio Manager Dr. Crystal Bauer Diabetes mellitus type 2 ([facility]) History of 2019 novel coronavirus disease (COVID-19) 09/08/2021 History of cardiac cath 10/30/2023 LAD: Mid LAD is narrowed 60% (DFR 0.79% - hemodynamically significant stenosis). Mid LCx is narrowed 80%. Mid RCA is narrowed 80%. Stent was not placed. CABG indicated. Pt declined CABG due to poor surgical candidate related to many comobidities. Patient elects medical therapy. History of cardiac monitoring 10/02/2023 Patient wore event monitor secondary to palpitations and syncope and collapse. Underlying sinus rhythm was appreciated with excellent heart rate variability. Heart rate ranging 50-120, average heart rate 70. Very rare PVC's are isolated no sustained evidence of atrial fibrillation or ventricular tachycardia. Patient is on Coreg 6.25 mg BID. Symptoms have no relationship to any arrhythmias. History of cardiovascular stress test 10/10/2021 -Impression: Enlarging dilated LV and the setting of global hypokinesis. Calculated EF 39%. This may represent the sequela of chronic hypertension or other cardiomyopathy. No images evidence of stress-induced myocardial ischemia. History of echocardiogram 03/18/2021 Echocardiogram demonstrates a suboptimal study. EF 50 to 55%. Moderate concentric LVH. Class I diastolic dysfunction. Left atrium is mildly dilated. Mild a S. Mild to moderate MR. Mild TR. Borderline to mild PHT. History of echocardiogram 10/04/2022 EF 45-50%. Left ventricle cavity size is normal. Wall thickness is normal. Systolic funciton is mildly reduced. Hypokinesis of the anterolateral myocardium. Hypokinesis of the inferioir myocardium Grade 2 diastolic dysfunction. Mitral valve the annulus is mildly calcified. The leaflets are moderately thickened. Thickening. Severe regurgitation. Left atrium is mildly dilated. History of echocardiogram 12/22/2022 EF 50% demonstrates concentric left ventricular hypertrophy. Slight hypokinesis of distal septal wall. Mild to moderate MR. Mild TR. Aortic valve is sclerotic, thickened, but the valve area is noted to be normal. History of echocardiogram w/ Bubble Study 09/24/2023 EF 30-35%, LV- moderately enlarged. LA-moderately enlarged. RA-moderately enlarged. Moderate to severe MV regurgitation. Moderate TV regurgitation. Moderate pulmonary hypertension. History of echocardiography 10/07/2021 -Echocardiogram demonstrates of the difficult study with minimal information obtainable. LV is dilated with an EF at 45 to 50%. Diastolic function is indeterminate. Aortic valve is poorly visualized but no evidence for aortic stenosis by Doppler analysis. Moderate mitral annular calcification without hemodynamically significant MS. Mild MR. History of smoking History of transesophageal echocardiography (MILA) 10/30/2023 EF 30-35%. Moderately severe MR with PISA of 0.29 cm?. Mild TR. HTN (hypertension) Obstructive sleep apnea on CPAP Peritoneal dialysis status 6-days per week, does not do on Sunday. Severe protein-calorie malnutrition (HCC) 12/28/2024 PAST SURGICAL HISTORY Procedure Laterality Date PAST SURGICAL HISTORY OF Right TMA TONSILLECTOMY HX Social History Tobacco Use Smoking status: Former Current packs/day: 0.00 Average packs/day: 1 pack/day for 14.0 years (14.0 ttl pk-yrs) Types: Cigarettes Start date: 1965 Quit date: 08/20/1979 Years since quittin.5 Smokeless tobacco: Never Vaping Use Vaping status: Never Used Substance Use Topics Alc (more content not included)... [facility] 03-09-2025 Telephone encounter Note Called patient to explain rationale behind [facility] follow-up appointment. If needed, also recommended establishing care with Heart Failure prior to 6-month visit in [facility]. No answer, message left with callback requested if questions. Will forward to schedulers to make appropriate appointments. Paola Hanna RN [facility] 03-09-2025 Miscellaneous Notes Called patient to explain rationale behind [facility] follow-up appointment. If needed, also recommended establishing care with Heart Failure prior to 6-month visit in [facility]. No answer, message left with callback requested if questions. Will forward to schedulers to make appropriate appointments. Paola Hanna RN documented in this encounter [facility] 02-12-2025 Telephone encounter Note Post Implant follow up call: Date: 02/12/2025 Name: Ptee Colney Is your incision: Red: No Open: No Swollen: No Draining: No Steri Strips: still intact If the device is an ICD, have you received any shocks: No Have you received your temporary or permanent ID card: No Do you have your f/u appointment: Yes Appointments for Next 60 Days Date Time Provider Location Dept Phone 02/23/2025 12:45 PM DEVICE CLINIC [facility] [phone] 03/13/2025 2:45 PM CRYSTAL BAUER [facility] [phone] 04/06/2025 11:00 AM ECHO A17 CARD MARGAR[facility] [phone] 04/06/2025 1:00 PM SHUKRI RIGGS [facility] [phone] Any scheduling issues:No Questions moving forward: No Chico Hernandez [facility] 02-12-2025 Miscellaneous Notes Post Implant follow up call: Date: 02/12/2025 Name: Pete Conley Is your incision: Red: No Open: No Swollen: No Draining: No Steri Strips: still intact If the device is an ICD, have you received any shocks: No Have you received your temporary or permanent ID card: No Do you have your f/u appointment: Yes Appointments for Next 60 Days Date Time Provider Location Dept Phone 02/23/2025 12:45 PM DEVICE [facility]IC [facility] [facility] [phone] 03/13/2025 2:45 PM CRYSTAL BAUER [facility] [phone] 04/06/2025 11:00 AM ECHO A17 CARD [facility] [phone] 04/06/2025 1:00 PM KEELY SHUKRI [facility] [phone] Any scheduling issues:No Questions moving forward: No Chico Hernandez documented in this encounter [facility] 02-03-2025 Telephone encounter Note Spoke to Milan at [facility] and verified patient is APAP 5-20 with oxygen bled in he will send the orders that they have for us to review and send to ECF for them to have on file. [facility] 02-03-2025 Miscellaneous Notes Spoke to Milan at [facility] and verified patient is APAP 5-20 with oxygen bled in he will send the orders that they have for us to review and send to ECF for them to have on file. Allie from patients ECF called wanting to verify patient's CPAP order and if the patient has oxygen bled into his machine. I did find the patient was on APAP 5-20 through [employer] but could not verify if oxygen was bled in. I advised I would contact [employer] and get a compliance to look at current settings and discuss the oxygen being bled into the machine with them. Please call Allie back at [phone] And fax any orders to them at [phone] Attempted to call [facility] but there was nobody available. Left a message asking for a return call. documented in this encounter [facility] 02-03-2025 Telephone encounter Note Allie from patients ECF called wanting to verify patient's CPAP order and if the patient has oxygen bled into his machine. I did find the patient was on APAP 5-20 through [employer] but could not verify if oxygen was bled in. I advised I would contact [employer] and get a compliance to look at current settings and discuss the oxygen being bled into the machine with them. Please call Allie back at [phone] And fax any orders to them at [phone] Attempted to call [facility] but there was nobody available. Left a message asking for a return call. [facility] 01-22-2025 Telephone encounter Note Patient just discharged from surgery yesterday to SNF Will cancel 01/26 and sent schedule request for 2-3 months with staff for Echo if patient wishes to follow up her instead of [facility] Please notify the patient thanks [facility] 01-22-2025 Miscellaneous Notes Patient just discharged from surgery yesterday to SNF Will cancel / and sent schedule request for 2-3 months with staff for Echo if patient wishes to follow up her instead of [place] Please notify the patient thanks daughter Corine [phone] calling asking if appt is still needed 6/9 pt ended up having the surgery instead of just a cath documented in this encounter [facility] 01-21-2025 Telephone encounter Note daughter Corine [phone] calling asking if appt is still needed 6/9 pt ended up having the surgery instead of just a cath [facility] 01-21-2025 Note [facility] 01-21-2025 Note [facility] 01-21-2025 Note HNO ID: [id number] Author: IRASEMA HASKINS CHT Service: ? Author Type: Ceramic Chemist Type: Progress Notes Filed: 01/21/2025 05:15 Note Text: 0430 Machine is in dwell 5 of 5. Lines clamped, no leaks noted. Machine is running well. [facility] 01-20-2025 Note [facility] 01-20-2025 Note [facility] 01-20-2025 Note HNO ID: [id number] Author: ARVIND HASSAN CHT Service: Nephrology Author Type: Ceramic Chemist Type: Progress Notes Filed: 01/20/2025 07:46 Note Text: Pt alarming low drain volume 4 of 6. [facility] 01-20-2025 Note [facility] 01-20-2025 Note HNO ID: [id number] Author: IRASEMA HASKINS CHT Service: ? Author Type: Ceramic Chemist Type: Progress Notes Filed: 01/20/2025 04:46 Note Text: 0425 Pt is in drain 4 of 6. Machine is running well. Lines clamped, no leaks noted. [facility] 01-19-2025 Note [facility] 01-19-2025 Note [facility] 01-19-2025 Note [facility] 01-19-2025 Note HNO ID: [id number] Author: ARVIND HASSAN CHT Service: Nephrology Author Type: Ceramic Chemist Type: Progress Notes Filed: 01/19/2025 04:32 Note Text: Pt resting. dwell four of five. [facility] 01-18-2025 Note [facility] 01-18-2025 Note [facility] 01-17-2025 Note HNO ID: [id number] Author: MICHAEL ANNE CHT Service: Dialysis Author Type: Ceramic Chemist Type: Progress Notes Filed: 01/18/2025 02:22 Note Text: Pt refused tx tonight neph made aware [facility] 01-17-2025 Note [facility] 01-17-2025 Note [facility] 01-17-2025 Note [facility] 01-17-2025 Note HNO ID: [id number] Author: ARVIND HASSAN CHT Service: Nephrology Author Type: Ceramic Chemist Type: Progress Notes Filed: 01/17/2025 04:24 Note Text: Dwell four of five. Pt awake. No alarms. [facility] 01-16-2025 Note [facility] 01-16-2025 Note [facility] 01-16-2025 Note [facility] 01-16-2025 Note [facility] 01-15-2025 Note [facility] 01-15-2025 Note [facility] 01-15-2025 Note [facility] 01-15-2025 Note [facility] 01-15-2025 Note [facility] 01-14-2025 Note [facility] 01-14-2025 Note [facility] 01-14-2025 Note [facility] 01-14-2025 Note HNO ID: [id number] Author: CURT MÁRQUEZ CHT Service: ? Author Type: Ceramic Chemist Type: Progress Notes Filed: 01/14/2025 03:41 Note Text: No issues [facility] 01-13-2025 Note [facility] 01-13-2025 Note [facility] 01-12-2025 Note HNO ID: [id number] Author: CURT MÁRQUEZ CHT Service: ? Author Type: Ceramic Chemist Type: Progress Notes Filed: 01/12/2025 22:06 Note Text: Patient refused treatment tonight, paged Nephro they are aware, also bedside nurse and residents [facility] 01-12-2025 Note [facility] 01-12-2025 Note [facility] 01-12-2025 Note HNO ID: [id number] Author: CURT MÁRQUEZ CHT Service: ? Author Type: Ceramic Chemist Type: Progress Notes Filed: 01/12/2025 03:41 Note Text: No issues Urine is yellow [facility] 01-11-2025 Note [facility] 01-11-2025 Note [facility] 01-11-2025 Note [facility] 01-11-2025 Note [facility] 01-10-2025 Note [facility] 01-10-2025 Note [facility] 01-10-2025 Note [facility] 01-10-2025 Note [facility] 01-10-2025 Note [facility] 01-09-2025 Note [facility] 01-09-2025 Note [facility] 01-08-2025 Note [facility] 01-08-2025 Note [facility] 01-07-2025 Note [facility] 01-07-2025 Note [facility] 01-06-2025 Note [facility] 01-06-2025 Note [facility] 12-22-2024 History of Present illness Narrative Images from the original note were not included. [facility] Ne[facility] CHIEF COMPLAINT: Dental Clearance HISTORY OF PRESENT ILLNESS: Pete Conley is a 74 year old male being seen for dental consultation at the request of Dr. Amairani Chun prior to open-heart surgery. The patient's last dental visit was a couple weeks ago for root canal tooth #30. Pain:He denies odontalgia today. PROBLEM LIST: ACTIVE PROBLEM LIST Bilateral Lower Extremity Edema Former Smoker Primary Hypertension Sob (Shortness of Breath) On Exertion Postinflammatory Pulmonary Fibrosis (Hcc) History of Echocardiogram Atelectasis Interstitial Pulmonary Disease (Hcc) History of Echocardiography History of Cardiovascular Stress Test Psoriasis Macy On Cpap Dcm (Dilated Cardiomyopathy) ([facility]) Chronic Hypoxemic Respiratory Failure ([facility]) Chronic Obstructive Pulmonary Disease ([facility]) Solitary Pulmonary Nodule Pulmonary Nodules Class 2 Severe Obesity Due to Excess Calories With Serious Comorbidity and Body Mass Index (Bmi) of 35.0 to 35.9 in Adult ([facility]) Type 2 Diabetes Mellitus With Stage 4 Chronic Kidney Disease, With Long-Term Current Use of Insulin ([facility]) Hyperlipidemia Ldl Goal <55 Chronic Hfref (Heart Failure With Reduced Ejection Fraction) ([facility]) Nonrheumatic Mitral Valve Regurgitation Pleural Effusion Coronary Artery Disease Involving Hamilton Coronary Artery of Hamilton Heart Without Angina Pectoris Bilateral Carotid Artery Stenosis 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 ([facility]) Acute Decompensated Heart Failure ([facility]) Anemia of Renal Disease Secondary Hyperparathyroidism of Renal Origin ([facility]) Hypervolemia Esrd On Dialysis ([facility]) Hfref (Heart Failure With Reduced Ejection Fraction) ([facility]) End Stage Kidney Disease ([facility]) Peritoneal Dialysis Status CURRENT MEDICATIONS: Current Facility-Administered Medications on File Prior to Visit Medication ipratropium-albuterol 3 mL nebulizer solution (DUONEB) diphenhydrAMINE 25 mg capsule (BENADRYL) hydrALAZINE 10 mg tab(s) (APRESOLINE) isosorbide dinitrate 5 mg tab(s) (ISORDIL) heparin 5,000 Units injection furosemide 100 mg injection (LASIX) guaiFENesin 600 mg ER tab(s) (MUCINEX) gentamicin 0.1% cream dextrose 15 gram/32 mL 15 g (TRUEPLUS) Or glucagon 1 mg injection Or dextrose 10% iv bolus insulin lispro injection (rapid acting) (ADMElog) insulin lispro injection (rapid acting) (ADMElog) acetaminophen 1,000 mg tab(s) (TYLENOL) melatonin 1 mg tab(s) polyethylene glycol 3350 17 g packet NaCl 0.9% iv flush bag atorvastatin 80 mg tab(s) (LIPITOR) allopurinol 300 mg tab(s) (ZYLOPRIM) tamsulosin 0.4 mg cap(s) (FLOMAX) Current Outpatient Medications on File Prior to Visit Medication Sig traMADol (ULTRAM) 50 mg tablet Take 1 tablet by mouth every 12 hours. carvedilol (COREG) 6.25 mg tablet Take 1 tablet by mouth two times a day with meals. atorvastatin (LIPITOR) 80 mg tablet Take 1 tablet by mouth daily at bedtime. clopidogrel (PLAVIX) 75 mg tablet Take 1 tablet by mouth every morning. fluticasone (FLONASE) 50 mcg/actuation nasal spray Use 1-2 Sprays in each nostril once daily. (Patient not taking: Reported on 08/27/2024) CPAP 1 Each by Mask route daily at bedtime. [employer] insulin lispro (HUMALOG KWIKPEN INSULIN SUBCUTANEOUS) Inject 5 Units/day subcutaneously two times a day. Lunch and Dinner dapagliflozin propanediol (FARXIGA) 10 mg tablet Take 10 mg by mouth daily with breakfast. cholecalciferol (VITAMIN D) 1,000 unit tab tablet Take 1,000 Units by mouth once daily. insulin glargine (LANTUS) 100 unit/mL injection Inject 10 Units subcutaneously two times a day. OXYGEN, HOME THERAPY, Inhale 1.5 L/min as instructed as needed for wheezing/shortness of breath. allopurinol (ZYLOPRIM) 300 mg tablet Take 300 mg by mouth once daily. tamsulosin ER (FLOMAX) 0.4 mg Take 0.4 mg by mouth once daily. ALLERGIES: ALLERGIES Allergen Reactions Amlodipine Swelling Aspirin Other: See Comments tacchycardia Clams Unknown Metformin Intolerance Victoza [Liraglutid* Other: See Comments CLINICAL EXAMINATION: General appearance: healthy, alert, well hydrated, pleasant, no distress. Extraoral, Head and Neck exam: No extraoral swelling or erythema Parotid and submandibular glands soft, nonpainful to palpation bilaterally No lymphadenopathy V1, V2, V3, CN VII intact bilaterally Intraoral Soft Tissues: Clear saliva extruded from bilateral Charleston's and Geri's ducts. Tongue soft and non-tender with no apparent lesions. Buccal mucosa without lesions bilaterally. NO: traumatic fibroma [id number] on left buccal mucosa. Hard palate is WNL. Soft palate is WNL. Pharynx is WNL. Floor of mouth is WNL. Gingival tissues are within normal limits. Supragingival calculus on lingual of lower anterior teeth. Dentition: Caries:None Retained root tips: None Pain to percussion: None Mobility: None Oral hygiene: fair. Radiographic examination: Panorex dated 12-22-24 Generalized horizontal bone loss. No apical radiolucencies noted. Caries: None. ASSESSMENT: The oral cavity and dentition were examined and found to be without signs of acute odontogenic infection. There is low risk of perioperative dental complication with this patient. RECOMMENDATIONS: The patient is at low risk of perioperative complication from an oral health standpoint. The procedure including risks, benefits, options and personnel performing the procedure was discussed with the patient. Pete Conley expressed understanding and agreed to proceed. The opinions rendered will be communicated back to the referring provider via shared electronic medical record. Jemima Duke DDS documented in this encounter [facility] 12-18-2024 Nurse Note AMBULATORY PATIENT EDUCATION TOPIC: MILA READINESS TO LEARN COGNITIVE ABILITY: Alert and oriented MOTIVATION TO LEARN: Eager FAMILY SUPPORT: None - Unavailable/disinterested INSTRUCTION PROVIDED TO: Patient PATIENT LEARNS BEST BY: Individual Instruction Verbal Instruction FACTORS AFFECTING LEARNING: None PHYSICAL LIMITATIONS AFFECTING LEARNING: None LEARNING RESPONSE DIAGNOSIS: MV eval METHOD OF INSTRUCTION: Individual instruction PATIENT / FAMILY RESPONSE: Verbalizes understanding of: POST-PROCEDURE INSTRUCTIONS-Correct actions to take to reduce post procedure complications PRE-PROCEDURE INSTRUCTIONS-Correct action to take to follow pre-procedure instructions FOLLOW-UP PLAN: Complete - No need for follow-up SUPPLEMENTAL MATERIAL: None REFERRAL (RECOMMENDATION): None Electronically Signed By Whitney Moreno RN In Department: CARDIOLOGY [facility] 12-18-2024 Miscellaneous Notes AMBULATORY PATIENT EDUCATION TOPIC: MILA READINESS TO LEARN COGNITIVE ABILITY: Alert and oriented MOTIVATION TO LEARN: Eager FAMILY SUPPORT: None - Unavailable/disinterested INSTRUCTION PROVIDED TO: Patient PATIENT LEARNS BEST BY: Individual Instruction Verbal Instruction FACTORS AFFECTING LEARNING: None PHYSICAL LIMITATIONS AFFECTING LEARNING: None LEARNING RESPONSE DIAGNOSIS: MV eval METHOD OF INSTRUCTION: Individual instruction PATIENT / FAMILY RESPONSE: Verbalizes understanding of: POST-PROCEDURE INSTRUCTIONS-Correct actions to take to reduce post procedure complications PRE-PROCEDURE INSTRUCTIONS-Correct action to take to follow pre-procedure instructions FOLLOW-UP PLAN: Complete - No need for follow-up SUPPLEMENTAL MATERIAL: None REFERRAL (RECOMMENDATION): None Electronically Signed By Whitney Moreno RN In Department: CARDIOLOGY documented in this encounter [facility] 12-03-2024 Telephone encounter Note Expedite. Evaluation only. EKG-labs-R&LHC 12/15/24, PFTs-CTA CAP w-Dr. Watt consult 1:30 pm 12/16/24 I spoke to Mr. Conley informing him of Dr. Watt's recommendations for testing and an evaluation appointment first. Mr. Conley accepted the recommendations and requested December 15 and December 16 for his appointments. Sunita Morejon RN [facility] 12-03-2024 Miscellaneous Notes Expedite. Evaluation only. EKG-labs-R&LHC 12/15/24, PFTs-CTA CAP w-Dr. Watt consult 1:30 pm 12/16/24 I spoke to Mr. Conley informing him of Dr. Watt's recommendations for testing and an evaluation appointment first. Mr. Conley accepted the recommendations and requested December 15 and December 16 for his appointments. Sunita Morejon RN Dr. Watt has reviewed the case and is first offering an evaluation to include Labs, EKG, pfts, CTA CAP w, R&LHC and surgeon consult. NPM to call the patient. Sunita Morejon RN Chart reviewed December 01, 2024. File given to Dr. Watt for his review/plan of care. Pete Sutton Jarvis [id number] 74 year old Diagnosis: 3+ MR, CM/CAD, HfrEF Secondary Dx: DM2, ESRD-peritoneal dialysis, COPD, HTN, HLD, MACY-CPAP, Carotid stenosis Previous Surgeries: no previous cardiac surgery Symptoms: Dyspnea / RODRÍGUEZ EF%: 24% Thinners: plavix Smoking status: quit 1979 Notes: Patient needs back surgery for a fracture. Sunita Morejon RN Routing referral to NPM. Zara Serrano LOCAL PATIENT Received Concan Email from Dr. Shukri Maldonado. Pete Conley is being referred to Mimi Watt M.D. by No referring provider defined for this encounter. Phone: N/A Fax: Patient diagnosis/Reason for consult: CABG, Mitral valve replacement/repair. Referral triage process explained: Yes Patient will receive a call from Cardiac NPM after triage review with surgeon to discuss any additional testing and/or consults that will be scheduled. Pt will then receive a call from our scheduling office for scheduling. Please call pt at [phone]. Patient Registration: Registration complete/updated: yes Insurance card(s) scanned in [facility] with in the past year: Yes: Date: 11/25/24. Pt's V[employer] is active. Ok to communicate to pt via [employer] not asked Medical Records: Records in [facility] (internal CC records): Yes Imaging in [facility] (internal CC records): Yes Care Everywhere - queried n/a, downloaded N/A Linked Outside Organizations (list): [facility] OS Records Requested: n/a Date: N/A Outside Hospital(s) requested records from: [facility] Received: n/a Uploaded: N/A. Waiting on additional records: N/A. Missing (list): N/A OS Radiology Imaging Requested: n/a Date: N/A Outside Hospital(s) requested imaging from: [facility]. Imaging will be received via In Epic already Received: n/a Imaging uploaded: N/A via In [facility] already Waiting on additional: N/A. Missing (list): N/A Additional providers added to Care Teams: No Additional Notes/Comments: I spoke with the patient and explained the review process, insurance cards are in [facility] along with images. Zara Serrano Enct routed to: No Zara Serrano documented in this encounter [facility] 12-01-[address] Watt has reviewed the case and is first offering an evaluation to include Labs, EKG, pfts, CTA CAP w, R&LHC and surgeon consult. NPM to call the patient. Sunita Morejon RN [facility] 12-01-2024 Telephone encounter Note Chart reviewed December 01, 2024. File given to Dr. Watt for his review/plan of care. Natymakayla Sutton Jarvis [id number] 74 year old Diagnosis: 3+ MR, CM/CAD, HfrEF Secondary Dx: DM2, ESRD-peritoneal dialysis, COPD, HTN, HLD, MACY-CPAP, Carotid stenosis Previous Surgeries: no previous cardiac surgery Symptoms: Dyspnea / RODRÍGUEZ EF%: 24% Thinners: plavix Smoking status: quit 1979 Notes: Patient needs back surgery for a fracture. Sunita Morejon RN [facility] 12-01-2024 Telephone encounter Note Routing referral to NPM. Zara Serrano [facility] 11-25-2024 Telephone encounter Note inn [facility] Work Phone: 11-25-2024 Miscellaneous Notes inn Insurance card is in Epic and ready for registration. Zara Serrano documented in this encounter [facility] 11-25-2024 Telephone encounter Note Insurance card is in Epic and ready for registration. Zara Serrano [facility] 11-25-2024 Telephone encounter Note LOCAL PATIENT Received Concan Email from Dr. Shukri Maldonado. Pete Conley is being referred to Mimi Watt M.D. by No referring provider defined for this encounter. Phone: N/A Fax: Patient diagnosis/Reason for consult: CABG, Mitral valve replacement/repair. Referral triage process explained: Yes Patient will receive a call from Cardiac NPM after triage review with surgeon to discuss any additional testing and/or consults that will be scheduled. Pt will then receive a call from our scheduling office for scheduling. Please call pt at [phone]. Patient Registration: Registration complete/updated: yes Insurance card(s) scanned in [facility] with in the past year: Yes: Date: 11/25/24. Pt's [employer] is active. Ok to communicate to pt via [employer] not asked Medical Records: Records in [facility] (internal CC records): Yes Imaging in [facility] (internal CC records): Yes Care Everywhere - queried n/a, downloaded N/A Linked Outside Organizations (list): [facility] OS Records Requested: n/a Date: N/A Outside Hospital(s) requested records from: [facility] Received: n/a Uploaded: N/A. Waiting on additional records: N/A. Missing (list): N/A OS Radiology Imaging Requested: n/a Date: N/A Outside Hospital(s) requested imaging from: [facility]. Imaging will be received via In Epic already Received: n/a Imaging uploaded: N/A via In [facility] already Waiting on additional: N/A. Missing (list): N/A Additional providers added to Care Teams: No Additional Notes/Comments: I spoke with the patient and explained the review process, insurance cards are in [facility] along with images. Zara Zach Enct routed to: No Zara Zach [facility] 11-25-2024 Telephone encounter Note RECEIVED CALL FROM: Patient PATIENT INFORMATION: Name: Pete Conley : 1950 (home) [phone] (cell) Email: No e-mail address on record Referring Provider: No referring provider defined for this encounter. Phone: N/A Fax: Requested Surgeon: First Available/Unspecified Reason for appointment/diagnosis: OPEN HEART Salinas Garcia November 25, 2024 1:10 PM [facility] 11-25-2024 Miscellaneous Notes RECEIVED CALL FROM: Patient PATIENT INFORMATION: Name: Pete Conley : 1950 (home) [phone] (cell) Email: No e-mail address on record Referring Provider: No referring provider defined for this encounter. Phone: N/A Fax: Requested Surgeon: First Available/Unspecified Reason for appointment/diagnosis: OPEN HEART Salinasdena Garcia November 25, 2024 1:10 PM documented in this encounter [facility] 11-25-2024 History of Present illness Narrative Images from the original note were not included. [facility] Department of Cardiovascular Medicine SECTION OF INTERVENTIONAL CARDIOLOGY OUTPATIENT VISIT DATE November 24, 2024 OUTPATIENT VISIT TYPE NEW PRIMARY CARE PHYSICIAN: Moises Prater MD [address] [place] [address] REFERRING PHYSICIAN: No referring provider defined for this encounter. CHIEF COMPLAINT: No chief complaint on file. HISTORY OF PRESENT ILLNESS: Mr. Conley is a 74 year old male who presents today shortness of breath, cardiomyopathy. Patient is a 74-year-old male with a history of coronary artery disease, diabetes, end-stage renal disease on peritoneal dialysis, COPD, hypertension, hyperlipidemia, MACY, HFrEF, mitral valve regurgitation who presents for further evaluation of coronary artery disease. His cardiac history begins about a year ago when he was noted to have a decrease in LV function with significant mitral regurgitation. He underwent cardiac catheterization which demonstrated multivessel disease. FFR of the LAD was abnormal. He was seen by cardiothoracic surgery and deemed a high surgical candidate. He was treated medically at that time. He states that over time, his shortness of breath has improved mildly with medical therapy and intensification of peritoneal dialysis. He has some back issues and was due to get back surgery. He was deemed a high risk surgical candidate and referred for further evaluation. He denies any chest discomfort. He does admit to shortness of breath and dyspnea in exertion. He otherwise denies any palpitations, lightheadedness, syncope, orthopnea, PND, lower extremity edema. NURSING INTAKE: Past medical history: ESRD on peritoneal dialysis, DM2, CAD, mitral valve regurgitation, carotid stenosis, HTN, HLD, MACY, HFrEF, COPD Mr. Conley is a 74 year old male here today from [place], [place] for cardiovascular evaluation. He follows at [facility] and last September it was noted he had a reduced EF and moderate to severe MR. He had a cath that showed multivessel disease. There was discussion on CABG vs PCI and ultimately medical therapy was recommended d/t medical history. He now has a fracture in back and was scheduled to have surgery 11/19 but anesthesia canceled surgery d/t abnormal ECG and cath. A referral was placed our cardiac surgery and interventional cardiology team. He denies chest pain/discomfort. He reports significant shortness of breath with minimal activity. He is unable to do much activity d/t SOB and back pain. He denies orthopnea, PND, he wears CPAP at night with 1.5 liters. He reports occasional mild lower extremity edema. Risk factors for coronary artery disease hyperlipidemia, hypertension, history of smoking, diabetes, family history of CAD, obesity He denies chest pain, orthopnea, PND, palpitations, lightheadedness, syncope, claudication, cough, and wheezing. Diet / Nutrition: regular Weight: stable Exercise: no exercise. 10/30/23 CARDIAC CATH DIAGNOSTIC FINDINGS + + Coronary Anatomy: Right Dominant Injection Site(s): Coronary Artery LMT: _ The LMT is normal. LAD: _ The mid LAD is narrowed 60 % - focal disease. Additional Comment: DFR% of the mid LAD stenosis was 0.79 which is significantly abnormal indicating hemodynamically significant stenosis. 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 _ The mid circumflex is narrowed 80 % - focal disease. RAMUS: _ Ramus Status: Not Applicable. RCA: _ The proximal RCA - moderate diffuse disease. _ The mid RCA is narrowed 80 % - severe diffuse disease. _ The distal RCA is narrowed 30 % - focal disease. + + IMPRESSION/PLAN + + Impression:Severe multivessel CAD Severely elevated right sided pressures Moderate to severe pulmonary HTN Severely elevated LVEDP Recommended Treatment: Medical Therapy, CABG and Valve repair / replacement. 08/27/24 ECG 10/27/24 CAROTID US RIGHT SIDE Common carotid artery: Patent. Internal carotid artery: 50-69% stenosis consistent with moderate carotid artery disease. Shadowing noted in the bulb and proximal internal carotid artery. Vertebral artery: Patent and antegrade flow noted. LEFT SIDE Common carotid artery: Patent. Internal carotid artery: <50% stenosis consistent with mild carotid artery disease. Vertebral artery: Patent and antegrade flow noted. 10/30/23 MILA CONCLUSIONS: - Exam indication: Initial evaluation valvular heart disease - The left ventricle is dilated. Left ventricular systolic function is moderately decreased. EF = 30-35% (visual est.) Indeterminate left ventricular diastolic dysfunction due to >2+ MR. - The right ventricle is dilated. Right ventricular systolic function is low normal. - There is moderately severe (3+) mitral valve regurgitation due to restricted leaflet motion likely related to ischemic heart disease. Regurgitant orifice area (PISA) is 0.29 cm . - Estimated right ventricular systolic pressure is 47 mmHg plus right atrial pressure. Estimated right atrial pressure is not included as the IVC was not seen. - Exam was compared with the prior OUTSIDE echocardiographic exam performed on 09/24/23. No significant change noted when compared to report of prior study. Latest Ref Rng 02/22/2024 Cholesterol, Total <200 mg/dL 96 Triglyceride <150 mg/dL 95 HDL Cholesterol >39 mg/dL 36 (L) Non HDL Cholesterol <130 mg/dL 60 Fasting Time hrs 14 VLDL Cholesterol <30 mg/dL 19 TC:HDL Ratio <5.10 2.67 LDL Cholesterol <100 mg/dL 41 LDL:HDL Ratio <2.54 1.14 Legend: (L) Low PAST MEDICAL HISTORY Diagnosis Date Acute and chronic respiratory failure with hypoxia ([facility]) Bilateral carotid artery stenosis 10/26/2023 Right internal carotid artery: 60-79% stenosis. Left: 20-39% stenosis. Monitored by Vascular Surgeon Dr. Domingo Monsalve. 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 Dolores Welsh COPD (chronic obstructive pulmonary disease) ([facility]) Lead Portfolio Manager Dr. Crystal Bauer Diabetes mellitus type 2 ([facility]) History of 2019 novel coronavirus disease (COVID-19) 09/08/2021 History of cardiac cath 10/30/2023 LAD: Mid LAD is narrowed 60% (DFR 0.79% - hemodynamically significant stenosis). Mid LCx is narrowed 80%. Mid RCA is narrowed 80%. Stent was not placed. CABG indicated. Pt declined CABG due to poor surgical candidate related to many comobidities. Patient elects medical therapy. History of cardiac monitoring 10/02/2023 Patient wore event monitor secondary to palpitations and syncope and collapse. Underlying sinus rhythm was appreciated with excellent heart rate variability. Heart rate ranging 50-120, average heart rate 70. Very rare PVC's are isolated no sustained evidence of atrial fibrillation or ventricular tachycardia. Patient is on Coreg 6.25 mg BID. Symptoms have no relationship to any arrhythmias. History of cardiovascular stress test 10/10/2021 -Impression: Enlarging dilated LV and the setting of global hypokinesis. Calculated EF 39%. This may represent the sequela of chronic hypertension or other cardiomyopathy. No images evidence of stress-induced myocardial ischemia. History of echocardiogram 03/18/2021 Echocardiogram demonstrates a suboptimal study. EF 50 to 55%. Moderate concentric LVH. Class I diastolic dysfunction. Left atrium is mildly dilated. Mild a S. Mild to moderate MR. Mild TR. Borderline to mild PHT. History of echocardiogram 10/04/2022 EF 45-50%. Left ventricle cavity size is normal. Wall thickness is normal. Systolic funciton is mildly reduced. Hypokinesis of the anterolateral myocardium. Hypokinesis of the inferioir myocardium Grade 2 diastolic dysfunction. Mitral valve the annulus is mildly calcified. The leaflets are moderately thickened. Thickening. Severe regurgitation. Left atrium is mildly dilated. History of echocardiogram 12/22/2022 EF 50% demonstrates concentric left ventricular hypertrophy. Slight hypokinesis of distal septal wall. Mild to moderate MR. Mild TR. Aortic valve is sclerotic, thickened, but the valve area is noted to be normal. History of echocardiogram w/ Bubble Study 09/24/2023 EF 30-35%, LV- moderately enlarged. LA-moderately enlarged. RA-moderately enlarged. Moderate to severe MV regurgitation. Moderate TV regurgitation. Moderate pulmonary hypertension. History of echocardiography 10/07/2021 -Echocardiogram demonstrates of the difficult study with minimal information obtainable. LV is dilated with an EF at 45 to 50%. Diastolic function is indeterminate. Aortic valve is poorly visualized but no evidence for aortic stenosis by Doppler analysis. Moderate mitral annular calcification without hemodynamically significant MS. Mild MR. History of smoking History of transesophageal echocardiography (MILA) 10/30/2023 EF 30-35%. Moderately severe MR with PISA of 0.29 cm . Mild TR. HTN (hypertension) Obstructive sleep apnea on CPAP Peritoneal dialysis status 6-days per week, does not do on Sunday. PAST SURGICAL HISTORY Procedure Laterality Date PAST SURGICAL HISTORY OF Right TMA TONSILLECTOMY HX SOCIAL HISTORY Social History Tobacco Use Smoking status: Former Current packs/day: 0.00 Average packs/day: 1 pack/day for 14.0 years (14.0 ttl pk-yrs) Types: Cigarettes Start date: 1965 Quit date: 08/20/1979 Years since quittin.2 Smokeless tobacco: Never Vaping Use Vaping status: Never Used Substance Use Topics Alcohol use: Never Drug use: Never FAMILY HISTORY Problem Relation Age of Onset Diabetes Father No Known Problems Sister Diabetes Sister Heart disease Sister Arrythmias Brother Diabetes Brother ALLERGIES: ALLERGIES Allergen Reactions Amlodipine Swelling Aspirin Other: See Comments tacchycardia Clams Unknown Metformin Intolerance Victoza [Liraglutid* Other: See Comments MEDICATIONS: traMADol (ULTRAM) 50 mg tablet Take 1 tablet by mouth every 12 hours. carvedilol (COREG) 6.25 mg tablet Take 1 tablet by mouth two times a day with meals. atorvastatin (LIPITOR) 80 mg tablet Take 1 tablet by mouth daily at bedtime. clopidogrel (PLAVIX) 75 mg tablet Take 1 tablet by mouth every morning. insulin lispro (HUMALOG KWIKPEN INSULIN SUBCUTANEOUS) Inject 5 Units/day subcutaneously two times a day. Lunch and Dinner dapagliflozin propanediol (FARXIGA) 10 mg tablet Take 10 mg by mouth daily with breakfast. cholecalciferol (VITAMIN D) 1,000 unit tab tablet Take 1,000 Units by mouth once daily. insulin glargine (LANTUS) 100 unit/mL injection Inject 10 Units subcutaneously two times a day. allopurinol (ZYLOPRIM) 300 mg tablet Take 300 mg by mouth once daily. tamsulosin ER (FLOMAX) 0.4 mg Take 0.4 mg by mouth once daily. fluticasone (FLONASE) 50 mcg/actuation nasal spray Use 1-2 Sprays in each nostril once daily. (Patient not taking: Reported on 08/27/2024) CPAP 1 Each by Mask route daily at bedtime. [employer] OXYGEN, HOME THERAPY, Inhale 1.5 L/min as instructed as needed for wheezing/shortness of breath. REVIEW OF SYSTEMS: GENERAL: no fever, no chills, and no change in weight HEENT: no headaches, no hearing loss, no difficulty swallowing, no visual changes, no nose bleeds SKIN: no rashes, no lesions, and no ulcers RESPIRATORY: SEE HPI CARDIOVASCULAR: See HPI GASTROINTESTINAL: no abdominal pain, no nausea, no vomiting, no difficulty or painful swallowing, and no melanotic stools GENITOURINARY: no dysuria, no frequency, and no nocturia MUSCULOSKELETAL: joint pain and pain with walking NEUROLOGIC: no numbness, no tingling, and no sensation of pins and needles HEMATOLOGY: no bruising easily, no prolonged bleeding, no anemia, and no cancer ENDOCRINE: no cold or heat intolerance, no polyuria, no polydipsia, no goiter, and diabetes PSYCH: no sleep disturbance, no mood disorders, and no recent psychosocial stressors PHYSICAL EXAMINATION: BP 132/68 Pulse 78 Resp 18 Ht 5' 10 (1.78m) Wt 248 lb (112.5kg) SpO2 97[RA]% BMI 35.58 kg/(m^2). General: Well appearing, in no acute distress, speaking in complete sentences. Skin: No clubbing, no cyanosis. Head/Eyes: Extra ocular movements intact Mouth: Teeth in good repair. Neck: No jugular venous distention, no carotid bruits, carotids have a normal upstroke, no palpable thyromegaly. Lungs: Clear to auscultation and no rales Heart: Regular rhythm, PMI not displaced, S1, S2 normal, no S3, no S4, no heaves, no rub and no murmur. PV Pulses:Pulses intact Abdomen: Soft, nontender, bowel sounds normal, no palpable organomegaly, no bruits. Extremities: No peripheral edema . Grade 2/4 distal pulses bilaterally. Edema Scale: No Musculoskeletal: Normal gait and ambulation Neuro: Oriented to time, place and person CARDIOVASCULAR MEDICINE TESTING: Electrocardiogram: Normal sinus rhythm, right bundle branch block Last ECHO Result Conclusion ECHO Collected: 12/22/2022 12:00 AM (Final result) Last EKG Result Conclusion ECG COMPLETE Collected: 08/27/2024 2:49 PM (Final result) Impression: Normal sinus rhythm Right bundle branch block Possible Inferior infarct , age undetermined Abnormal ECG When compared with ECG of 02-Oct-2023 15:15, T wave inversion now evident in Inferior leads Confirmed by TRISTAN ALEXANDER DO ([id number]) on 08/31/2024 5:11:22 PM I have personally reviewed the Echocardiogram and Cardiac Catheterization/Percutaneous Coronary Intervention (PCI). IMPRESSION: Mr. Conley is a 74 year old male dyspnea on exertion, cardiomyopathy, mitral regurgitation. PLAN AND RECOMMENDATIONS: Patient with stable symptoms since last year. Patient with cardiomyopathy and mitral regurgitation. Will go ahead and repeat echocardiogram. Will go ahead and refer to cardiothoracic surgery for further evaluation of possible revascularization as well as valve surgery. If the patient is is not a surgical candidate, consideration can be given to percutaneous revascularization of the right coronary artery and LAD. This would likely delay his back surgery at least 6 months. Patient is otherwise on reasonable medical therapy including carvedilol, Farxiga, clopidogrel and statin therapy. Patient can follow-up with me in 1 to 2 months. Thank you for allowing us to participate in the care of the patient. Please contact us on the questions or concerns. I personally interviewed, confirmed and edited the above information as obtained by others. CONTACT INFORMATION: documented in this encounter [facility] 11-12-2024 Telephone encounter Note Patient: Pete Conley Date of : 1950 Patient phone number: [phone] Referring Provider for the encounter: Cheihk Conti APRN, CNP Requesting Provider: ANY Reason for requesting visit (RFV/signs and symptoms/diagnosis): CTS for coronary artery disease involving [place] coronary artery of [place] heart w/o angina pectoris Person calling: caregiver: Floridalma Return call to: self Medical Records/Insurance Card scanned into Epic: Yes Comments: n/a [facility] 11-12-2024 Miscellaneous Notes Patient: Pete Conley Date of : 1950 Patient phone number: [phone] Referring Provider for the encounter: Cheikh Conti APRN, CNP Requesting Provider: ANY Reason for requesting visit (RFV/signs and symptoms/diagnosis): CTS for coronary artery disease involving [place] coronary artery of [place] heart w/o angina pectoris Person calling: caregiver: Floridalma Return call to: self Medical Records/Insurance Card scanned into Epic: Yes Comments: n/a documented in this encounter [facility] 11-11-2024 Telephone encounter Note Patient notified of the message and was agreeable. Referral faxed. [facility] 11-11-2024 Miscellaneous Notes Patient notified of the message and was agreeable. Referral faxed. The referral to [facility] Cardiothoracic Surgery has been ordered at this time. Patient was to have surgery on 11/19/[address] Luevano for his back. He was denied by hansa after having his EKG due to it being abnormal and his heart cath being so bad, Dr. Luevano would like him to get his heart taken care of first. He would like a referral to [facility] to have the CABG. documented in this encounter [facility] 11-11-2024 Telephone encounter Note The referral to [facility] Cardiothoracic Surgery has been ordered at this time. [facility] 11-11-2024 Telephone encounter Note Patient was to have surgery on 11/19/[address] Luevano for his back. He was denied by hansa after having his EKG due to it being abnormal and his heart cath being so bad, Dr. Luevano would like him to get his heart taken care of first. He would like a referral to [facility] to have the CABG. [facility] 08-27-2024 Note HNO ID: [id number] Author: CHEIKH CONTI APRN.CNP Service: ? Author Type: Nurse Practitioner Type: Progress Notes Filed: 08/27/2024 21:05 Note Text: Date: August 27, 2024 Chief Complaint: CARD F/U HISTORY OF PRESENT ILLNESS: Pete Conley is a 74 year old male who presents for follow up for chronic cardiac conditions. In October 2023, patient discussed potential CABG with cardiothoracic surgeon due to triple-vessel CAD, but declined due to poor surgical candidacy related to many comorbidities. Patient states that he has chosen to pursue medical therapy for management of CAD. Patient states that he has chronic kidneys disease and undergoes peritoneal dialysis. Patient states that he has been taking his medications as prescribed. Patient denies chest pain, palpitations, dyspnea, lightheadedness, or edema. ALLERGIES Allergen Reactions Amlodipine Swelling Aspirin Other: See Comments tacchycardia Clams Unknown Metformin Intolerance Victoza [Liraglutid* Other: See Comments PAST MEDICAL HISTORY: PAST MEDICAL HISTORY Diagnosis Date Acute and chronic respiratory failure with hypoxia ([facility]) Bilateral carotid artery stenosis 10/26/2023 Right internal carotid artery: 60-79% stenosis. Left: 20-39% stenosis. Monitored by Vascular Surgeon Dr. Domingo Monsalve. 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 Dolores Welsh COPD (chronic obstructive pulmonary disease) ([facility]) Lead Portfolio Manager Dr. Crystal Bauer Diabetes mellitus type 2 ([facility]) History of 2019 novel coronavirus disease (COVID-19) 09/08/2021 History of cardiac cath 10/30/2023 LAD: Mid LAD is narrowed 60% (DFR 0.79% - hemodynamically significant stenosis). Mid LCx is narrowed 80%. Mid RCA is narrowed 80%. Stent was not placed. CABG indicated. Pt declined CABG due to poor surgical candidate related to many comobidities. Patient elects medical therapy. History of cardiac monitoring 10/02/2023 Patient wore event monitor secondary to palpitations and syncope and collapse. Underlying sinus rhythm was appreciated with excellent heart rate variability. Heart rate ranging 50-120, average heart rate 70. Very rare PVC's are isolated no sustained evidence of atrial fibrillation or ventricular tachycardia. Patient is on Coreg 6.25 mg BID. Symptoms have no relationship to any arrhythmias. History of cardiovascular stress test 10/10/2021 -Impression: Enlarging dilated LV and the setting of global hypokinesis. Calculated EF 39%. This may represent the sequela of chronic hypertension or other cardiomyopathy. No images evidence of stress-induced myocardial ischemia. History of echocardiogram 03/18/2021 Echocardiogram demonstrates a suboptimal study. EF 50 to 55%. Moderate concentric LVH. Class I diastolic dysfunction. Left atrium is mildly dilated. Mild a S. Mild to moderate MR. Mild TR. Borderline to mild PHT. History of echocardiogram 10/04/2022 EF 45-50%. Left ventricle cavity size is normal. Wall thickness is normal. Systolic funciton is mildly reduced. Hypokinesis of the anterolateral myocardium. Hypokinesis of the inferioir myocardium Grade 2 diastolic dysfunction. Mitral valve the annulus is mildly calcified. The leaflets are moderately thickened. Thickening. Severe regurgitation. Left atrium is mildly dilated. History of echocardiogram 12/22/2022 EF 50% demonstrates concentric left ventricular hypertrophy. Slight hypokinesis of distal septal wall. Mild to moderate MR. Mild TR. Aortic valve is sclerotic, thickened, but the valve area is noted to be normal. History of echocardiogram w/ Bubble Study 09/24/2023 EF 30-35%, LV- moderately enlarged. LA-moderately enlarged. RA-moderately enlarged. Moderate to severe MV regurgitation. Moderate TV regurgitation. Moderate pulmonary hypertension. History of echocardiography 10/07/2021 -Echocardiogram demonstrates of the difficult study with minimal information obtainable. LV is dilated with an EF at 45 to 50%. Diastolic function is indeterminate. Aortic valve is poorly visualized but no evidence for aortic stenosis by Doppler analysis. Moderate mitral annular calcification without hemodynamically significant MS. Mild MR. History of smoking History of transesophageal echocardiography (MILA) 10/30/2023 EF 30-35%. Moderately severe MR with PISA of 0.29 cm?. Mild TR. HTN (hypertension) Obstructive sleep apnea on CPAP Peritoneal dialysis status (HCC) 6-days per week, does not do on Sunday. PAST SURGICAL HISTORY Procedure Laterality Date PAST SURGICAL HISTORY OF Right TMA TONSILLECTOMY HX FAMILY HISTORY Problem Relation Age of Onset Diabetes Father No Known Problems Sister Diabetes Sister Heart disease Sister Arrythmias Brother Diabetes Brother SOCIAL HISTORY: Tobacco Use: 1 packs/day, for 14 years. Quit 08/20/1979. 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 [facility] 08-27-2024 History of Present illness Narrative Date: August 27, 2024 Chief Complaint: CARD F/U HISTORY OF PRESENT ILLNESS: Pete Conley is a 74 year old male who presents for follow up for chronic cardiac conditions. In October 2023, patient discussed potential CABG with cardiothoracic surgeon due to triple-vessel CAD, but declined due to poor surgical candidacy related to many comorbidities. Patient states that he has chosen to pursue medical therapy for management of CAD. Patient states that he has chronic kidneys disease and undergoes peritoneal dialysis. Patient states that he has been taking his medications as prescribed. Patient denies chest pain, palpitations, dyspnea, lightheadedness, or edema. ALLERGIES Allergen Reactions Amlodipine Swelling Aspirin Other: See Comments tacchycardia Clams Unknown Metformin Intolerance Victoza [Liraglutid* Other: See Comments PAST MEDICAL HISTORY: PAST MEDICAL HISTORY Diagnosis Date Acute and chronic respiratory failure with hypoxia ([facility]) Bilateral carotid artery stenosis 10/26/2023 Right internal carotid artery: 60-79% stenosis. Left: 20-39% stenosis. Monitored by Vascular Surgeon Dr. Domingo Monsalve. 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 Dolores Welsh COPD (chronic obstructive pulmonary disease) ([facility]) Lead Portfolio Manager Dr. Crystal Bauer Diabetes mellitus type 2 ([facility]) History of 2019 novel coronavirus disease (COVID-19) 09/08/2021 History of cardiac cath 10/30/2023 LAD: Mid LAD is narrowed 60% (DFR 0.79% - hemodynamically significant stenosis). Mid LCx is narrowed 80%. Mid RCA is narrowed 80%. Stent was not placed. CABG indicated. Pt declined CABG due to poor surgical candidate related to many comobidities. Patient elects medical therapy. History of cardiac monitoring 10/02/2023 Patient wore event monitor secondary to palpitations and syncope and collapse. Underlying sinus rhythm was appreciated with excellent heart rate variability. Heart rate ranging 50-120, average heart rate 70. Very rare PVC's are isolated no sustained evidence of atrial fibrillation or ventricular tachycardia. Patient is on Coreg 6.25 mg BID. Symptoms have no relationship to any arrhythmias. History of cardiovascular stress test 10/10/2021 -Impression: Enlarging dilated LV and the setting of global hypokinesis. Calculated EF 39%. This may represent the sequela of chronic hypertension or other cardiomyopathy. No images evidence of stress-induced myocardial ischemia. History of echocardiogram 03/18/2021 Echocardiogram demonstrates a suboptimal study. EF 50 to 55%. Moderate concentric LVH. Class I diastolic dysfunction. Left atrium is mildly dilated. Mild a S. Mild to moderate MR. Mild TR. Borderline to mild PHT. History of echocardiogram 10/04/2022 EF 45-50%. Left ventricle cavity size is normal. Wall thickness is normal. Systolic funciton is mildly reduced. Hypokinesis of the anterolateral myocardium. Hypokinesis of the inferioir myocardium Grade 2 diastolic dysfunction. Mitral valve the annulus is mildly calcified. The leaflets are moderately thickened. Thickening. Severe regurgitation. Left atrium is mildly dilated. History of echocardiogram 12/22/2022 EF 50% demonstrates concentric left ventricular hypertrophy. Slight hypokinesis of distal septal wall. Mild to moderate MR. Mild TR. Aortic valve is sclerotic, thickened, but the valve area is noted to be normal. History of echocardiogram w/ Bubble Study 09/24/2023 EF 30-35%, LV- moderately enlarged. LA-moderately enlarged. RA-moderately enlarged. Moderate to severe MV regurgitation. Moderate TV regurgitation. Moderate pulmonary hypertension. History of echocardiography 10/07/2021 -Echocardiogram demonstrates of the difficult study with minimal information obtainable. LV is dilated with an EF at 45 to 50%. Diastolic function is indeterminate. Aortic valve is poorly visualized but no evidence for aortic stenosis by Doppler analysis. Moderate mitral annular calcification without hemodynamically significant MS. Mild MR. History of smoking History of transesophageal echocardiography (MILA) 10/30/2023 EF 30-35%. Moderately severe MR with PISA of 0.29 cm . Mild TR. HTN (hypertension) Obstructive sleep apnea on CPAP Peritoneal dialysis status (HCC) 6-days per week, does not do on Sunday. PAST SURGICAL HISTORY Procedure Laterality Date PAST SURGICAL HISTORY OF Right TMA TONSILLECTOMY HX FAMILY HISTORY Problem Relation Age of Onset Diabetes Father No Known Problems Sister Diabetes Sister Heart disease Sister Arrythmias Brother Diabetes Brother SOCIAL HISTORY: Tobacco Use: 1 packs/day, for 14 years. Quit 08/20/1979. 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 atorvastatin (LIPITOR) 80 mg tablet Take 1 tablet by mouth daily at bedtime. clopidogrel (PLAVIX) 75 mg tablet Take 1 tablet by mouth every morning. CPAP 1 Each by Mask route daily at bedtime. Dasco insulin lispro (HUMALOG KWIKPEN INSULIN SUBCUTANEOUS) Inject 5 Units/day subcutaneously two times a day. Lunch and Dinner dapagliflozin propanediol (FARXIGA) 10 mg tablet Take 10 mg by mouth daily with breakfast. cholecalciferol (VITAMIN D) 1,000 unit tab tablet Take 1,000 Units by mouth once daily. insulin glargine (LANTUS) 100 unit/mL injection Inject 10 Units subcutaneously two times a day. OXYGEN, HOME THERAPY, Inhale 1.5 L/min as instructed as needed for wheezing/shortness of breath. allopurinol (ZYLOPRIM) 300 mg tablet Take 300 mg by mouth once daily. tamsulosin ER (FLOMAX) 0.4 mg Take 0.4 mg by mouth once daily. fluticasone (FLONASE) 50 mcg/actuation nasal spray Use 1-2 Sprays in each nostril once daily. (Patient not taking: Reported on 08/27/2024) No current facility-administered medications for this visit. I have personally reviewed the patients past medical history including social, family, surgical, diagnostics, and medications. REVIEW OF SYSTEMS: Review of Systems Constitutional: Negative for chills and fatigue. Respiratory: Negative for cough, chest tightness, shortness of breath, wheezing and stridor. Cardiovascular: Negative for chest pain, palpitations and leg swelling. Gastrointestinal: Negative. Skin: Negative. Neurological: Negative for dizziness, syncope, weakness, light-headedness, numbness and headaches. Hematological: Bruises/bleeds easily. Psychiatric/Behavioral: Negative for confusion and hallucinations. PHYSICAL EXAMINATION: BP 138/80 (BP Site: Left Arm, BP Position: Sitting) Pulse 86 Resp 16 Ht 180.3 cm (5' 11) Wt 116.1 kg (255 lb 15.3 oz) SpO2 94% BMI 35.70 kg/m Last 3 Encounter BP Readings: Date: BP: 02/14/2024 128/78 11/23/2023 138/74 11/13/2023 130/70 Last 3 Encounter Pulse Readings: Date: Pulse: 02/14/2024 77 11/23/2023 68 11/13/2023 73 Last 3 Encounter Wt Readings: Date: Wt: 02/14/2024 119.7 kg (264 lb) 11/23/2023 120.2 kg (265 lb 1.3 oz) 11/13/2023 122.1 kg (269 lb 3.2 oz) Physical Exam Constitutional: General: He is not in acute distress. Appearance: Normal appearance. He is obese. He is not diaphoretic. HENT: Head: Normocephalic and atraumatic. Mouth/Throat: Mouth: Mucous membranes are moist. Pharynx: Oropharynx is clear. Eyes: General: No scleral icterus. Conjunctiva/sclera: Conjunctivae normal. Neck: Vascular: No carotid bruit. Cardiovascular: Rate and Rhythm: Normal rate and regular rhythm. Pulses: Normal pulses. Radial pulses are 2+ on the right side and 2+ on the left side. Heart sounds: Murmur heard. Systolic murmur is present with a grade of 2/6. Pulmonary: Effort: Pulmonary effort is normal. Breath sounds: Normal breath sounds. No wheezing or rales. Abdominal: General: Bowel sounds are normal. Palpations: Abdomen is soft. Tenderness: There is no right CVA tenderness or left CVA tenderness. Musculoskeletal: Cervical back: Normal range of motion and neck supple. No rigidity. Right lower leg: No edema. Left lower leg: No edema. Skin: General: Skin is warm and dry. Capillary Refill: Capillary refill takes less than 2 seconds. Coloration: Skin is not jaundiced or pale. Findings: No bruising or erythema. Neurological: General: No focal deficit present. Mental Status: He is alert and oriented to person, place, and time. Psychiatric: Behavior: Behavior normal. Thought Content: Thought content normal. LABS: Glucose (mg/dL) Date Value 10/17/2023 168 03/05/2023 213 Potassium (mmol/L) Date Value 10/17/2023 5.2 03/05/2023 4.9 Sodium (mmol/L) Date Value 10/17/2023 137 03/05/2023 135 Chloride (mmol/L) Date Value 10/17/2023 100 03/05/2023 100 CO2 (mmol/L) Date Value 10/17/2023 26 03/05/2023 23 Creatinine (mg/dL) Date Value 10/17/2023 3.78 03/05/2023 3.77 BUN (mg/dL) Date Value 10/17/2023 49 03/05/2023 59 Anion Gap (mmol/L) Date Value 10/17/2023 11 03/05/2023 16.9 Calcium (mg/dL) Date Value 03/05/2023 9.3 Calcium, Total (mg/dL) Date Value 10/17/2023 9.3 Protein, Total (g/dL) Date Value 03/05/2023 6.5 Albumin (g/dL) Date Value 03/05/2023 3.4 Bilirubin, Total (mg/dL) Date Value 03/05/2023 0.8 Alkaline Phosphatase (U/L) Date Value 03/05/2023 64 AST (U/L) Date Value 02/22/2024 36 03/05/2023 24 ALT (U/L) Date Value 02/22/2024 16 03/05/2023 6 Hemoglobin (g/dL) Date Value 10/17/2023 14.8 03/05/2023 11.4 Hematocrit (%) Date Value 10/17/2023 47.3 03/05/2023 36.5 WBC Date Value 10/17/2023 7.49 k/uL 03/05/2023 19.5 x10(3) Cholesterol, Total (mg/dL) Date Value 02/22/2024 96 10/07/2021 223 HDL Cholesterol (mg/dL) Date Value 02/22/2024 36 10/07/2021 35 LDL Cholesterol (mg/dL) Date Value 02/22/2024 41 LDL (mg/dL) Date Value 10/07/2021 169 Triglyceride (mg/dL) Date Value 02/22/2024 95 10/07/2021 96 EKG: Sinus rhythm, Right BBB: HR 85 bpm. DIAGNOSTIC TEST RESULTS: Recent Results (from the past 24 hour(s)) ECG COMPLETE Collection Time: 08/27/24 2:49 PM Result Value Ref Range Ventricular Rate 85 BPM Atrial Rate 85 BPM P-R Interval 194 ms QRS Duration 168 ms QT Interval 442 ms QTC Calculation (Bazett) 525 ms Calculated P [place] 56 degrees Calculated R D[place] 127 degrees Calculated T Dutton -14 degrees Narrative NAME : PETE CONLEY PID : [id number] : 1950 Gender : Male Race : ORD : [id number] Procedure Date : Aug 27 2024 14:49:41 Edit Date : Aug 27 2024 13:47:14 Diagnosis: Normal sinus rhythm Right bundle branch block Possible Inferior infarct , age undetermined Abnormal ECG When compared with ECG of 02-Oct-2023 15:15, T wave inversion now evident in Inferior leads Test Reason : HCS Location : 2 : [facility] Overread By : , Edited By : , Referred By : , Acquired by : , Impression Normal sinus rhythm Right bundle branch block Possible Inferior infarct , age undetermined Abnormal ECG When compared with ECG of 02-Oct-2023 15:15, T wave inversion now evident in Inferior leads ASSESSMENT/PLAN: 1. Coronary artery disease involving [place] coronary artery of [place] heart without angina pectoris - ICD9: 414.01, ICD10: I25.10 (primary diagnosis) - Taking Plavix 75 mg daily. - ECG COMPLETE 2. Chronic HFrEF (heart failure with reduced ejection fraction) ([facility]) - ICD9: 428.22, ICD10: I50.22 - Stable, no edema today. - Currently on Farxiga and Coreg therapy. - Continue current medications - Encouraged sodium restriction - Encouraged daily weights - Recommend regular aerobic exercise 3. End-stage renal disease on peritoneal dialysis (HCC) - ICD9: 585.6, V45.11, ICD10: N18.6, Z99.2 - Counseled on low sodium diet - Managed by Pyrotechnic Assembler. 4. Primary hypertension - ICD9: 401.9, ICD10: I10 - Controlled - Encouraged sodium restriction, DASH or Mediterranean diet - Recommend regular aerobic exercise - Discussed need for and benefit of weight loss. BMI 35.70 kg/(m^2) - Reviewed risks of hypertension and principles of treatment - Managed by Pyrotechnic Assembler. 5. Hyperlipidemia LDL goal <55 - ICD9: 272.4, ICD10: E78.5 - Controlled - Continue current medications - Counseled on healthy diet and regular exercise - Discussed need for and benefit of weight loss. BMI 35.70 kg/(m^2) 6. Class 2 severe obesity due to excess calories with serious comorbidity and body mass index (BMI) of 35.0 to 35.9 in adult ([facility]) - ICD9: 278.01, V85.35, ICD10: E66.812, E66.01, Z68.35 - Stable - Behavioral intervention Cheikh Conti APRN.CNP Follow up in 1 year. Greater that 51% of my time was spent with [id number] conversation with the patient. I have discussed the recommended treatment, alternative therapies and other options in detail. I've discussed the best benefit and side effects of these recommended treatments. I've attempted to answer all the questions to the patient's satisfaction and understanding. After leaving the exam room, I went back into the patient's chart and coordinated care with my nurse ordering the proper testing and medicinal changes. Letter was performed with voice recognition algorithms and sent to the referring team. The chart was completed. Including the pre-exam, exam and post-exam, the total time spent in the patient's management was greater than 40 minutes. I, Cheikh Conti CNP have reviewed and agree with the information in the medical record. Cheikh Conti APRN.CNP documented in this encounter [facility] 02-22-2024 Telephone encounter Note Called patient and informed him. He stated understanding. [facility] 02-22-2024 Miscellaneous Notes Called patient and informed him. He stated understanding. Please inform the patient that his cholesterol is well controlled. Continue taking Lipitor as currently prescribed. documented in this encounter [facility] 02-22-2024 Telephone encounter Note Please inform the patient that his cholesterol is well controlled. Continue taking Lipitor as currently prescribed. [facility] 02-18-2024 Telephone encounter Note Prescription Refill Information The patient has been identified by name and date of : Patient called Caregiver verified no other encounters exist for this prescription request: Yes Caregiver confirmed with patient/requestor that no other refills are due, in the near future, with this provider at this time: Yes The last office visit in the department: 11/23/2023 Does the patient have a future office visit with this provider/department: Yes Requested Prescriptions Pending Prescriptions Disp Refills carvedilol (COREG) 6.25 mg tablet 60 tablet 9 Sig: Take 1 tablet by mouth two times a day. Sukhdeep Lozada MA February 18, 2024 4:30 PM [facility] 02-18-2024 Miscellaneous Notes Prescription Refill Information The patient has been identified by name and date of : Patient called Caregiver verified no other encounters exist for this prescription request: Yes Caregiver confirmed with patient/requestor that no other refills are due, in the near future, with this provider at this time: Yes The last office visit in the department: 11/23/2023 Does the patient have a future office visit with this provider/department: Yes Requested Prescriptions Pending Prescriptions Disp Refills carvedilol (COREG) 6.25 mg tablet 60 tablet 9 Sig: Take 1 tablet by mouth two times a day. Sukhdeep Lozada MA February 18, 2024 4:30 PM documented in this encounter [facility] 02-14-2024 Instructions Esmer Be APRN.CRISELDA - 02/14/2024 11:23 AM EDT Try Flonase nasal spray at night and see if that helps the drainage and morning cough. You can try your breathing treatments at night time too and see if that helps. If you have worse symptoms or concerns please call me! documented in this encounter [facility] 02-14-2024 History of Present illness Narrative [facility] Department of Pulmonary & Sleep Medicine Esmer Be APRN.COMPUTER METEOROLOGIST Pulmonary Progress Note REFERRING PROVIDER: Moises Prater* Pete Conley is a 74 year old male who is returning for follow up evaluation of MACY. History of Illness Since Last Visit: pt is using his CPAP qhs with no concerns. He has prn oxygen at home that he occasionally uses with exertion, but not recently. He has prn nebs at home, but hasn't used recently. He doesn't use any inhalers. He had recent cardiac workup and discussed with cardiothoracic surgeons. It was decided his CAD would be treated medically only. Patient's BP is high today, will recheck, and pt to follow up with PCP for further monitoring. Pt says he is coughing up some mucus in the mornings, and thinks this might be nasal/sinus drainage overnight. Will try flonase. Discussed using his nebs more as well. HISTORY PAST MEDICAL HISTORY Diagnosis Date Acute and chronic respiratory failure with hypoxia ([facility]) Bilateral carotid artery stenosis 10/26/2023 Right internal carotid artery: 60-79% stenosis. Left: 20-39% stenosis. Monitored by Vascular Surgeon Dr. Domingo Monsalve. 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 Dolores Welsh COPD (chronic obstructive pulmonary disease) ([facility]) Lead Portfolio Manager Dr. Crystal Bauer Diabetes mellitus type 2 ([facility]) History of 2019 novel coronavirus disease (COVID-19) 09/08/2021 History of cardiac cath 10/30/2023 LAD: Mid LAD is narrowed 60% (DFR 0.79% - hemodynamically significant stenosis). Mid LCx is narrowed 80%. Mid RCA is narrowed 80%. Stent was not placed. CABG indicated. Pt declined CABG due to poor surgical candidate related to many comobidities. Patient elects medical therapy. History of cardiac monitoring 10/02/2023 Patient wore event monitor secondary to palpitations and syncope and collapse. Underlying sinus rhythm was appreciated with excellent heart rate variability. Heart rate ranging 50-120, average heart rate 70. Very rare PVC's are isolated no sustained evidence of atrial fibrillation or ventricular tachycardia. Patient is on Coreg 6.25 mg BID. Symptoms have no relationship to any arrhythmias. History of cardiovascular stress test 10/10/2021 -Impression: Enlarging dilated LV and the setting of global hypokinesis. Calculated EF 39%. This may represent the sequela of chronic hypertension or other cardiomyopathy. No images evidence of stress-induced myocardial ischemia. History of echocardiogram 03/18/2021 Echocardiogram demonstrates a suboptimal study. EF 50 to 55%. Moderate concentric LVH. Class I diastolic dysfunction. Left atrium is mildly dilated. Mild a S. Mild to moderate MR. Mild TR. Borderline to mild PHT. History of echocardiogram 10/04/2022 EF 45-50%. Left ventricle cavity size is normal. Wall thickness is normal. Systolic funciton is mildly reduced. Hypokinesis of the anterolateral myocardium. Hypokinesis of the inferioir myocardium Grade 2 diastolic dysfunction. Mitral valve the annulus is mildly calcified. The leaflets are moderately thickened. Thickening. Severe regurgitation. Left atrium is mildly dilated. History of echocardiogram 12/22/2022 EF 50% demonstrates concentric left ventricular hypertrophy. Slight hypokinesis of distal septal wall. Mild to moderate MR. Mild TR. Aortic valve is sclerotic, thickened, but the valve area is noted to be normal. History of echocardiogram w/ Bubble Study 09/24/2023 EF 30-35%, LV- moderately enlarged. LA-moderately enlarged. RA-moderately enlarged. Moderate to severe MV regurgitation. Moderate TV regurgitation. Moderate pulmonary hypertension. History of echocardiography 10/07/2021 -Echocardiogram demonstrates of the difficult study with minimal information obtainable. LV is dilated with an EF at 45 to 50%. Diastolic function is indeterminate. Aortic valve is poorly visualized but no evidence for aortic stenosis by Doppler analysis. Moderate mitral annular calcification without hemodynamically significant MS. Mild MR. History of smoking History of transesophageal echocardiography (MILA) 10/30/2023 EF 30-35%. Moderately severe MR with PISA of 0.29 cm . Mild TR. HTN (hypertension) Obstructive sleep apnea on CPAP Peritoneal dialysis status (HCC) 6-days per week, does not do on Sunday. PAST SURGICAL HISTORY Procedure Laterality Date PAST SURGICAL HISTORY OF Right TMA TONSILLECTOMY HX Social History Tobacco Use Smoking status: Former Packs/day: 1.00 Years: 14.00 Additional pack years: 0.00 Total pack years: 14.00 Types: Cigarettes Start date: 1965 Quit date: 08/20/1979 Years since quittin.5 Smokeless tobacco: Never Vaping Use Vaping Use: Never used Substance Use Topics Alcohol use: Never Drug use: Never ALLERGIES: ALLERGIES Allergen Reactions Amlodipine Swelling Aspirin Other: See Comments tacchycardia Victoza [Liraglutid* Other: See Comments MEDICATIONS: Current Outpatient Medications Medication Sig atorvastatin (LIPITOR) 80 mg tablet Take 1 tablet by mouth daily at bedtime. clopidogrel (PLAVIX) 75 mg tablet Take 1 tablet by mouth every morning. CPAP 1 Each by Mask route daily at bedtime. Dasco insulin lispro (HUMALOG KWIKPEN INSULIN SUBCUTANEOUS) Inject 5 Units/day subcutaneously two times a day. Lunch and Dinner carvedilol (COREG) 6.25 mg tablet Take 1 tablet by mouth twice daily. cholecalciferol (VITAMIN D) 1,000 unit tab tablet Take 1,000 Units by mouth once daily. insulin glargine (LANTUS) 100 unit/mL injection Inject 10 Units subcutaneously two times a day. OXYGEN, HOME THERAPY, Inhale 1.5 L/min as instructed as needed for wheezing/shortness of breath. allopurinol (ZYLOPRIM) 100 mg tablet Take 300 mg by mouth once daily. tamsulosin ER (FLOMAX) 0.4 mg Take 0.4 mg by mouth once daily. fluticasone (FLONASE) 50 mcg/actuation nasal spray Use 1-2 Sprays in each nostril once daily. dapagliflozin propanediol (FARXIGA) 10 mg tablet Take 10 mg by mouth daily with breakfast. (Patient not taking: Reported on 02/14/2024) No current facility-administered medications for this visit. IMMUNIZATIONS: There is no immunization history on file for this patient. REVIEW OF SYSTEMS Review of Systems Constitutional: Negative for chills, diaphoresis, fatigue, fever and unexpected weight change. HENT: Positive for postnasal drip. Negative for congestion, dental problem, ear pain, rhinorrhea, sinus pressure, sinus pain, sore throat and trouble swallowing. Eyes: Negative for photophobia, pain, discharge, itching and visual disturbance. Respiratory: Positive for apnea, cough and shortness of breath (RODRÍGUEZ stable). Negative for chest tightness, wheezing and stridor. Cardiovascular: Negative for chest pain, palpitations and leg swelling. Gastrointestinal: Negative for abdominal distention, abdominal pain, blood in stool, constipation, diarrhea, nausea and vomiting. Endocrine: Negative for polydipsia, polyphagia and polyuria. Genitourinary: Negative for difficulty urinating, dysuria, flank pain and hematuria. Musculoskeletal: Negative for arthralgias, gait problem, joint swelling and myalgias. Skin: Negative for color change, pallor, rash and wound. Allergic/Immunologic: Negative for environmental allergies and food allergies. Neurological: Negative for dizziness, syncope, weakness, light-headedness, numbness and headaches. Hematological: Negative for adenopathy. Does not bruise/bleed easily. Psychiatric/Behavioral: Negative for agitation, behavioral problems, confusion and suicidal ideas. Vital Signs: BP 147/83[provider notified[ Pulse 77 Ht 5' 10.984 (1.80m) Wt 264 lb (119.8kg) SpO2 96% BMI 36.84 kg/(m^2). Physical Exam Constitutional: General: He is not in acute distress. Appearance: He is obese. He is not diaphoretic. HENT: Head: Normocephalic and atraumatic. Nose: Nose normal. No nasal deformity, septal deviation, mucosal edema or rhinorrhea. Right Sinus: No maxillary sinus tenderness or frontal sinus tenderness. Left Sinus: No maxillary sinus tenderness or frontal sinus tenderness. Mouth/Throat: Mouth: No oral lesions. Dentition: Abnormal dentition. Pharynx: Uvula midline. No oropharyngeal exudate or posterior oropharyngeal erythema. Comments: Mallampati class IV Eyes: Conjunctiva/sclera: Conjunctivae normal. Pupils: Pupils are equal, round, and reactive to light. Neck: Thyroid: No thyromegaly. Vascular: No JVD. Trachea: No tracheal deviation. Cardiovascular: Rate and Rhythm: Normal rate and regular rhythm. Heart sounds: Normal heart sounds. Pulmonary: Effort: Pulmonary effort is normal. No respiratory distress. Breath sounds: No stridor. Rales (fibrotic) present. No wheezing. Abdominal: General: Bowel sounds are normal. There is no distension. Palpations: Abdomen is soft. Tenderness: There is no abdominal tenderness. There is no guarding. Musculoskeletal: General: Swelling (trace BLE) present. Normal range of motion. Cervical back: Normal range of motion and neck supple. Skin: General: Skin is warm and dry. Findings: No erythema or rash. Neurological: Mental Status: He is alert and oriented to person, place, and time. Gait: Gait is intact. Psychiatric: Mood and Affect: Mood normal. Affect is flat. Cognition and Memory: Memory normal. Judgment: Judgment normal. DATA REVIEW Oximetry : 96% saturated at rest on room air. ASSESSMENT/PLAN: 1. MACY on CPAP - ICD9: 327.23, ICD10: G47.33 (primary diagnosis) Compliant with and benefits from PAP therapy. 2. Chronic obstructive pulmonary disease, unspecified COPD type (HCC) - ICD9: 496, ICD10: J44.9 Prn nebs 3. Chronic HFrEF (heart failure with reduced ejection fraction) (HCC) - ICD9: 428.22, ICD10: I50.22 Clinically stable. Follows in Dr. Alexander's office 4. Former smoker - ICD9: V15.82, ICD10: Z87.891 Quit in 1979 5. Chronic hypoxemic respiratory failure (HCC) - ICD9: 518.83, 799.02, ICD10: J96.11 Compliant with and benefits from oxygen therapy. Prn, doesn't need often 6. Allergic rhinitis, unspecified seasonality, unspecified trigger - ICD9: 477.9, ICD10: J30.9 Try flonase - FLUTICASONE PROPIONATE 50 MCG/ACTUATION NASAL SPRAY,SUSPENSION Esmer Be (Electronically signed expedite mailing) FOLLOW UP: Return in about 1 year (around 02/13/2025). This note was generated with voice recognition software and may contain errors including spelling, grammar, and syntax and mis-recognition of what was dictated that are not fully corrected. documented in this encounter [facility] 11-23-2023 History of Present illness Narrative Date: November 23, 2023 Chief Complaint: Cardiology Follow Up - Generic (Two month f/u- CHF.) HISTORY OF PRESENT ILLNESS: Pete Conley is a 73 year old male who presents for Cardiology Follow Up - Generic (Two month f/u- CHF.). Patient states that he recently underwent cardiac catheterization which showed significant triple-vessel coronary artery disease. Patient discussed potential CABG with cardiothoracic surgeon, but declined due to poor surgical candidacy related to many comorbidities. Patient states that he has chosen to pursue medical therapy for management of CAD. Patient states that he has chronic kidneys disease and undergoes peritoneal dialysis. Patient denies chest pain, palpitations, dyspnea, lightheadedness, or edema. ALLERGIES Allergen Reactions Amlodipine Swelling Aspirin Other: See Comments tacchycardia Victoza [Liraglutid* Other: See Comments PAST MEDICAL HISTORY: PAST MEDICAL HISTORY Diagnosis Date Acute and chronic respiratory failure with hypoxia ([facility]) Bilateral carotid artery stenosis 10/26/2023 Right internal carotid artery: 60-79% stenosis. Left: 20-39% stenosis. Monitored by Vascular Surgeon Dr. Domingo Monsalve. 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 Dolores Welsh COPD (chronic obstructive pulmonary disease) ([facility]) Lead Portfolio Manager Dr. Crystal Bauer Diabetes mellitus type 2 ([facility]) History of 2019 novel coronavirus disease (COVID-19) 09/08/2021 History of cardiac cath 10/30/2023 LAD: Mid LAD is narrowed 60% (DFR 0.79% - hemodynamically significant stenosis). Mid LCx is narrowed 80%. Mid RCA is narrowed 80%. Stent was not placed. CABG indicated. Pt declined CABG due to poor surgical candidate related to many comobidities. Patient elects medical therapy. History of cardiac monitoring 10/02/2023 Patient wore event monitor secondary to palpitations and syncope and collapse. Underlying sinus rhythm was appreciated with excellent heart rate variability. Heart rate ranging 50-120, average heart rate 70. Very rare PVC's are isolated no sustained evidence of atrial fibrillation or ventricular tachycardia. Patient is on Coreg 6.25 mg BID. Symptoms have no relationship to any arrhythmias. History of cardiovascular stress test 10/10/2021 -Impression: Enlarging dilated LV and the setting of global hypokinesis. Calculated EF 39%. This may represent the sequela of chronic hypertension or other cardiomyopathy. No images evidence of stress-induced myocardial ischemia. History of echocardiogram 03/18/2021 Echocardiogram demonstrates a suboptimal study. EF 50 to 55%. Moderate concentric LVH. Class I diastolic dysfunction. Left atrium is mildly dilated. Mild a S. Mild to moderate MR. Mild TR. Borderline to mild PHT. History of echocardiogram 10/04/2022 EF 45-50%. Left ventricle cavity size is normal. Wall thickness is normal. Systolic funciton is mildly reduced. Hypokinesis of the anterolateral myocardium. Hypokinesis of the inferioir myocardium Grade 2 diastolic dysfunction. Mitral valve the annulus is mildly calcified. The leaflets are moderately thickened. Thickening. Severe regurgitation. Left atrium is mildly dilated. History of echocardiogram 12/22/2022 EF 50% demonstrates concentric left ventricular hypertrophy. Slight hypokinesis of distal septal wall. Mild to moderate MR. Mild TR. Aortic valve is sclerotic, thickened, but the valve area is noted to be normal. History of echocardiogram w/ Bubble Study 09/24/2023 EF 30-35%, LV- moderately enlarged. LA-moderately enlarged. RA-moderately enlarged. Moderate to severe MV regurgitation. Moderate TV regurgitation. Moderate pulmonary hypertension. History of echocardiography 10/07/2021 -Echocardiogram demonstrates of the difficult study with minimal information obtainable. LV is dilated with an EF at 45 to 50%. Diastolic function is indeterminate. Aortic valve is poorly visualized but no evidence for aortic stenosis by Doppler analysis. Moderate mitral annular calcification without hemodynamically significant MS. Mild MR. History of smoking History of transesophageal echocardiography (MILA) 10/30/2023 EF 30-35%. Moderately severe MR with PISA of 0.29 cm . Mild TR. HTN (hypertension) Obstructive sleep apnea on CPAP Peritoneal dialysis status (HCC) 6-days per week, does not do on Sunday. PAST SURGICAL HISTORY Procedure Laterality Date PAST SURGICAL HISTORY OF Right TMA TONSILLECTOMY HX FAMILY HISTORY Problem Relation Age of Onset Diabetes Father No Known Problems Sister Diabetes Sister Heart disease Sister Arrythmias Brother Diabetes Brother SOCIAL HISTORY: Tobacco Use: 1 packs/day, for 14 years. Quit 08/20/1979. 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 [employer] insulin lispro (HUMALOG KWIKPEN INSULIN SUBCUTANEOUS) Inject 5 Units/day subcutaneously two times a day. Lunch and Dinner dapagliflozin propanediol (FARXIGA) 10 mg tablet Take 10 mg by mouth daily with breakfast. carvedilol (COREG) 6.25 mg tablet Take 1 tablet by mouth twice daily. cholecalciferol (VITAMIN D) 1,000 unit tab tablet Take 1,000 Units by mouth once daily. insulin glargine (LANTUS) 100 unit/mL injection Inject 10 Units subcutaneously two times a day. OXYGEN, HOME THERAPY, Inhale 1.5 L/min as instructed as needed for wheezing/shortness of breath. allopurinol (ZYLOPRIM) 100 mg tablet Take 300 mg by mouth once daily. tamsulosin ER (FLOMAX) 0.4 mg Take 0.4 mg by mouth once daily. atorvastatin (LIPITOR) 80 mg tablet Take 1 tablet by mouth daily at bedtime. clopidogrel (PLAVIX) 75 mg tablet Take 1 tablet by mouth every morning. No current facility-administered medications for this visit. I have personally reviewed the patients past medical history including social, family, surgical, diagnostics, and medications. REVIEW OF SYSTEMS: Review of Systems Constitutional: Negative for chills and fatigue. Respiratory: Negative for cough, chest tightness, shortness of breath, wheezing and stridor. Cardiovascular: Negative for chest pain, palpitations and leg swelling. Gastrointestinal: Negative. Skin: Negative. Neurological: Negative for dizziness, syncope, weakness, light-headedness and headaches. Hematological: Bruises/bleeds easily. Psychiatric/Behavioral: Negative for confusion and hallucinations. PHYSICAL EXAMINATION: BP 138/74 (BP Site: Left Arm, BP Position: Sitting) Pulse 68 Resp 16 Ht 180.3 cm (5' 11) Wt 120.2 kg (265 lb 1.3 oz) SpO2 94% BMI 36.97 kg/m Last 3 Encounter BP Readings: Date: BP: 11/13/2023 130/70 10/22/2023 139/79 10/16/2023 155/67 Last 3 Encounter Pulse Readings: Date: Pulse: 11/13/2023 73 10/22/2023 73 10/16/2023 67 Last 3 Encounter Wt Readings: Date: Wt: 11/13/2023 122.1 kg (269 lb 3.2 oz) 10/22/2023 121.6 kg (268 lb) 10/16/2023 122 kg (269 lb) Physical Exam Constitutional: General: He is not in acute distress. Appearance: Normal appearance. He is obese. He is not diaphoretic. HENT: Head: Normocephalic and atraumatic. Mouth/Throat: Mouth: Mucous membranes are moist. Pharynx: Oropharynx is clear. Eyes: General: No scleral icterus. Conjunctiva/sclera: Conjunctivae normal. Neck: Vascular: No carotid bruit. Cardiovascular: Rate and Rhythm: Normal rate and regular rhythm. Pulses: Normal pulses. Radial pulses are 2+ on the right side and 2+ on the left side. Heart sounds: Murmur heard. Systolic murmur is present with a grade of 2/6. Pulmonary: Effort: Pulmonary effort is normal. Breath sounds: Normal breath sounds. No wheezing or rales. Abdominal: General: Bowel sounds are normal. Palpations: Abdomen is soft. Tenderness: There is no right CVA tenderness or left CVA tenderness. Musculoskeletal: Cervical back: Normal range of motion and neck supple. No rigidity. Right lower leg: No edema. Left lower leg: No edema. Skin: General: Skin is warm and dry. Capillary Refill: Capillary refill takes less than 2 seconds. Coloration: Skin is not jaundiced or pale. Findings: No bruising or erythema. Neurological: General: No focal deficit present. Mental Status: He is alert and oriented to person, place, and time. Psychiatric: Behavior: Behavior normal. Thought Content: Thought content normal. LABS: Glucose (mg/dL) Date Value 10/17/2023 168 03/05/2023 213 Potassium (mmol/L) Date Value 10/17/2023 5.2 03/05/2023 4.9 Sodium (mmol/L) Date Value 10/17/2023 137 03/05/2023 135 Chloride (mmol/L) Date Value 10/17/2023 100 03/05/2023 100 CO2 (mmol/L) Date Value 10/17/2023 26 03/05/2023 23 Creatinine (mg/dL) Date Value 10/17/2023 3.78 03/05/2023 3.77 BUN (mg/dL) Date Value 10/17/2023 49 03/05/2023 59 Anion Gap (mmol/L) Date Value 10/17/2023 11 03/05/2023 16.9 Calcium (mg/dL) Date Value 03/05/2023 9.3 Calcium, Total (mg/dL) Date Value 10/17/2023 9.3 Protein, Total (g/dL) Date Value 03/05/2023 6.5 Albumin (g/dL) Date Value 03/05/2023 3.4 Bilirubin, Total (mg/dL) Date Value 03/05/2023 0.8 Alkaline Phosphatase (U/L) Date Value 03/05/2023 64 AST (U/L) Date Value 03/05/2023 24 ALT (U/L) Date Value 03/05/2023 6 Hemoglobin (g/dL) Date Value 10/17/2023 14.8 03/05/2023 11.4 Hematocrit (%) Date Value 10/17/2023 47.3 03/05/2023 36.5 WBC Date Value 10/17/2023 7.49 k/uL 03/05/2023 19.5 x10(3) Cholesterol, Total (mg/dL) Date Value 10/07/2021 223 HDL Cholesterol (mg/dL) Date Value 10/07/2021 35 LDL (mg/dL) Date Value 10/07/2021 169 Triglyceride (mg/dL) Date Value 10/07/2021 96 ASSESSMENT/PLAN: 1. Coronary artery disease involving [place] coronary artery of [place] heart without angina pectoris - ICD9: 414.01, ICD10: I25.10 (primary diagnosis) - Patient has elected pharmaceutical therapy for management of CAD. - Start Plavix 75 mg daily. 2. Hyperlipidemia LDL goal <55 - ICD9: 272.4, ICD10: E78.5 - Start Atorvastatin 80 mg daily. - Check Lipid Panel + ALT/AST in 3 months. - Counseled on healthy diet and regular exercise - Discussed need for and benefit of weight loss. BMI 36.97 kg/(m^2) - LIPID PANEL BASIC - AST/SGOT BLD - ALT/SGPT 3. Primary hypertension - ICD9: 401.9, ICD10: I10 - Controlled - Continue current medications - Encouraged sodium restriction, DASH or Mediterranean diet - Recommend regular aerobic exercise - Discussed need for and benefit of weight loss. BMI 36.97 kg/(m^2) - Reviewed risks of hypertension and principles of treatment 4. Chronic HFrEF (heart failure with reduced ejection fraction) (HCC) - ICD9: 428.22, ICD10: I50.22 - Stable - Currently on Farxiga and Coreg therapy. - GDMT limited by renal function. - Encouraged sodium restriction - Encouraged daily weights - Recommend regular aerobic exercise 5. Class 2 severe obesity due to excess calories with serious comorbidity and body mass index (BMI) of 36.0 to 36.9 in adult (HCC) - ICD9: 278.01, V85.36, ICD10: E66.01, Z68.36 - Stable - Behavioral intervention Cheikh Conti APRN.CNP Follow up in 9 months. Greater that 51% of my time was spent with [id number] conversation with the patient. I have discussed the recommended treatment, alternative therapies and other options in detail. I've discussed the best benefit and side effects of these recommended treatments. I've attempted to answer all the questions to the patient's satisfaction and understanding. After leaving the exam room, I went back into the patient's chart and coordinated care with my nurse ordering the proper testing and medicinal changes. Letter was performed with voice recognition algorithms and sent to the referring team. The chart was completed. Including the pre-exam, exam and post-exam, the total time spent in the patient's management was greater than 40 minutes. ICheikh CNP have reviewed and agree with the information in the medical record. Cheikh Conti APRN.CRISELDA documented in this encounter [facility] 11-20-2023 Miscellaneous Notes MULTI DISCIPLINARY HIGH RISK AVR CARDIAC TEAM Members present: Dr. Ryan, Dr. Juan, Dr. Cobb, Dr. Villareal, Dr. Fontenot, Dr. Mora, Dr. Brown, Dr. Matamoros, Kenneth Marcus APRN, CNP, Medhat Buck CNP, JADE Kathleen., JADE Barger, Carroll Pruitt PA, JADE Ferrer, Geneva Calix CNP, Medhat Dubon CNP Presenting Physician: see members listed above PATIENT NAME:Pete Conley DATE: 11/20/2023 Outcome: Pete Conley history and imaging were reviewed by the physicians in attendance. Given patient's extensive hx (ESRD on dialysis, severe COPD, HFrEF) and given only symptom at this time is dyspnea the risk of an invasive procedure will likely not outwt the benefits. The collaborative recommendation is for medical management at this time. Patient has cardiology follow up on 12/06/23. These recommendations have been communicated to the patient by our office. Updated patient over phone with recommendations by Heart Team today. Encouraged patient to keep the scheduled cardiology visit for later this month. Patient verbalized understanding. All questions were answered. Tram Dubon APRN.CNP 11/20/2023 documented in this encounter [facility] 11-19-2023 Miscellaneous Notes Images from the original note were not included. [facility] OPD Phone Note Surgeon: Dr. Juan Surgery: none to date Origin of the call: patient Date of the call: November 19, 2023 Diagnosis: mod/severe MVR, MV CAD Reason for call: updated after heart team meeting Contact information: [phone] (home) How call resolved: updated patient that heart team meeting is tomorrow. that after discussion, will inform him of the recommendations Required follow up: call tomorrow post meeting SIGNATURE: Tram Dubon APRN.CNP DATE of SERVICE: 11/19/2023 TIME of SERVICE: 12:47 PM ----- Message from Zara Lopez sent at 11/19/2023 11:27 AM EDT ----- Patient called in wanting to speak to someone about the next steps. I told him someone from CT will reach out to him after discussion is brought up in the heart team meeting. #Which was stated in ov note 11/13/2023# documented in this encounter [facility] 11-13-2023 Note HNO ID: [id number] Author: AKHIL JUAN MD Service: ? Author Type: Physician Type: Progress Notes Filed: 11/13/2023 16:24 Note Text: CARDIOTHORACICSURGERY PROGRESS NOTE SERVICE DATE: 11/13/2023 SERVICE TIME: 4:19 PM Pete Conley returns today discuss results of left and right heart catheterization and transesophageal echo. Transesophageal echo dated 10/30/2023 shows: The left ventricle is dilated. Left ventricular systolic function is moderately decreased. EF = 30-35% (visual est.) Indeterminate left ventricular diastolic dysfunction due to >2+ MR. - The right ventricle is dilated. Right ventricular systolic function is low normal. - There is moderately severe (3+) mitral valve regurgitation due to restricted leaflet motion likely related to ischemic heart disease. Regurgitant orifice area (PISA) is 0.29 cm?. - Estimated right ventricular systolic pressure is 47 mmHg plus right atrial pressure. Estimated right atrial pressure is not included as the IVC was not seen. - Exam was compared with the prior OUTSIDE echocardiographic exam performed on 09/24/23. No significant change noted when compared to report of prior study Left heart catheterization shows severe multivessel coronary disease: Findings: Left main Mild disease LAD 50% mid stenosis DFR of 0.79 which is hemodynamically significant. LCx 80% proximal stenosis, OM1 CONDUIT REAMER OPERATOR at the ostium RCA 80% mid stenoisis Right heart catheterization shows moderately severe to severe pulm hypertension: LVEDP: 31mmHg [id number] RV 62/16mmHg PA 56/25mmHg, mean 36mmHg PCWP 33mmHg On evaluation today, he and his family note that his dyspnea appears to be improved with more aggressive peritoneal dialysis. He does have some exertional dyspnea. I explained to him and his family that nominally he has indication for multivessel coronary bypass grafting and possible mitral valve strict of annuloplasty. However, due to his extensive comorbidities and multiple system failures, his predicted risk of mortality for his procedure is in excess of 17% and may be as high as 40% if we consider him to be oxygen dependent. I therefore, have reviewed imaging and catheterization with interventional cardiology. We do believe that the multivessel coronary disease involving the LAD and the right coronary would be amenable to PCI; the circumflex artery branches are too small for coronary bypass grafting but the circumflex itself may also be amenable to PCI. 1 potential strategy that would be to pursue PCI and more aggressive peritoneal dialysis and see how he does. If he continues to have significant failure symptoms we can consider referral for MitraClip procedure. Further recommendation will follow after review in our heart team. SIGNATURE: Akhil Juan MD PATIENT NAME: Pete Conley DATE: November 13, 2023 TIME: 4:18 PM PAGER/CONTACT #: [id number] ETX#[id number] [facility] 11-13-2023 Note HNO ID: [id number] Author: OMAYRA CALIX APRN.COMPUTER METEOROLOGIST Service: ? Author Type: Nurse Practitioner Type: Progress Notes Filed: 11/13/2023 16:24 Note Text: STS for CABG AND MVR: Procedure Type: CABG + MVR PERIOPERATIVE OUTCOME ESTIMATE % Operative Mortality 39.3% without home O2 (with home O2 = 45.7%) Morbidity AND Mortality 57.9% Stroke 2.47% Renal Failure NA Reoperation 13.1% Prolonged Ventilation 51.8% Deep Sternal Wound Infection 1.57% Long Hospital Stay (>14 days) 46.7% Short Hospital Stay (<6 days)* 1.51% *higher values reflect a better outcome Clinical Summary Planned Surgery: CABG + MVR, Elective, First cardiovascular surgery Demographics: 73 year old, male, 122.1kg, 180.3cm, BMI: 37.6 kg/m? Lab Values: Creatinine: 3.78 mg/dL, Hematocrit: 36.5%, WBC Count: 7.49 10?/?L, Platelet Count: [id number] cells/?L PreOp Medications: Insulin diabetes control Substance Abuse: Former smoker Risk Factors / Comorbidities: Insulin-dependent Diabetes Mellitus, Dialysis, Hypertension, Syncope Pulmonary RF: Moderate CLD, Sleep Apnea Cardiac Status: Chronic heart failure, Ejection Fraction = 30% Coronary Artery Disease: 3 vessels diseased, Angina equivalent Valve Disease: Severe MR, Mild TR STS for isolated MVR: Procedure Type: Isolated MVR PERIOPERATIVE OUTCOME ESTIMATE % Operative Mortality 16.1% without home O2 (with home O2 = 21%) Morbidity AND Mortality 35.8% Stroke 4.02% Renal Failure NA Reoperation 5.85% Prolonged Ventilation 32.7% Deep Sternal Wound Infection 0.435% Long Hospital Stay (>14 days) 27.7% Short Hospital Stay (<6 days)* 6.89% *higher values reflect a better outcome Clinical Summary Planned Surgery: Isolated MVR, Elective, First cardiovascular surgery Demographics: 73 year old, male, 122.1kg, 180.3cm, BMI: 37.6 kg/m? Lab Values: Creatinine: 3.78 mg/dL, Hematocrit: 36.5%, WBC Count: 7.49 10?/?L, Platelet Count: [id number] cells/?L PreOp Medications: Insulin diabetes control Substance Abuse: Former smoker Risk Factors / Comorbidities: Insulin-dependent Diabetes Mellitus, Dialysis, Hypertension, Syncope Pulmonary RF: Moderate CLD, Sleep Apnea Cardiac Status: Chronic heart failure, Ejection Fraction = 30% Coronary Artery Disease: 3 vessels diseased, Angina equivalent Valve Disease: Severe MR, Mild TR [facility] 11-13-2023 History of Present illness Narrative CARDIOTHORACICSURGERY PROGRESS NOTE SERVICE DATE: 11/13/2023 SERVICE TIME: 4:19 PM Pete Conley returns today discuss results of left and right heart catheterization and transesophageal echo. Transesophageal echo dated 10/30/2023 shows: The left ventricle is dilated. Left ventricular systolic function is moderately decreased. EF = 30-35% (visual est.) Indeterminate left ventricular diastolic dysfunction due to >2+ MR. - The right ventricle is dilated. Right ventricular systolic function is low normal. - There is moderately severe (3+) mitral valve regurgitation due to restricted leaflet motion likely related to ischemic heart disease. Regurgitant orifice area (PISA) is 0.29 cm . - Estimated right ventricular systolic pressure is 47 mmHg plus right atrial pressure. Estimated right atrial pressure is not included as the IVC was not seen. - Exam was compared with the prior OUTSIDE echocardiographic exam performed on 09/24/23. No significant change noted when compared to report of prior study Left heart catheterization shows severe multivessel coronary disease: Findings: Left main Mild disease LAD 50% mid stenosis DFR of 0.79 which is hemodynamically significant. LCx 80% proximal stenosis, OM1 CONDUIT REAMER OPERATOR at the ostium RCA 80% mid stenoisis Right heart catheterization shows moderately severe to severe pulm hypertension: LVEDP: 31mmHg [id number] RV 62/16mmHg PA 56/25mmHg, mean 36mmHg PCWP 33mmHg On evaluation today, he and his family note that his dyspnea appears to be improved with more aggressive peritoneal dialysis. He does have some exertional dyspnea. I explained to him and his family that nominally he has indication for multivessel coronary bypass grafting and possible mitral valve strict of annuloplasty. However, due to his extensive comorbidities and multiple system failures, his predicted risk of mortality for his procedure is in excess of 17% and may be as high as 40% if we consider him to be oxygen dependent. I therefore, have reviewed imaging and catheterization with interventional cardiology. We do believe that the multivessel coronary disease involving the LAD and the right coronary would be amenable to PCI; the circumflex artery branches are too small for coronary bypass grafting but the circumflex itself may also be amenable to PCI. 1 potential strategy that would be to pursue PCI and more aggressive peritoneal dialysis and see how he does. If he continues to have significant failure symptoms we can consider referral for MitraClip procedure. Further recommendation will follow after review in our heart team. SIGNATURE: Akhil Juan MD PATIENT NAME: Pete Conley DATE: November 13, 2023 TIME: 4:18 PM PAGER/CONTACT #: [phone] ETX#[id number] STS for CABG & MVR: Procedure Type: CABG + MVR PERIOPERATIVE OUTCOME ESTIMATE % Operative Mortality 39.3% without home O2 (with home O2 = 45.7%) Morbidity & Mortality 57.9% Stroke 2.47% Renal Failure NA Reoperation 13.1% Prolonged Ventilation 51.8% Deep Sternal Wound Infection 1.57% Long Hospital Stay (>14 days) 46.7% Short Hospital Stay (<6 days)* 1.51% *higher values reflect a better outcome Clinical Summary Planned Surgery: CABG + MVR, Elective, First cardiovascular surgery Demographics: 73 year old, male, 122.1kg, 180.3cm, BMI: 37.6 kg/m Lab Values: Creatinine: 3.78 mg/dL, Hematocrit: 36.5%, WBC Count: 7.49 10 /?L, Platelet Count: [id number] cells/?L PreOp Medications: Insulin diabetes control Substance Abuse: Former smoker Risk Factors / Comorbidities: Insulin-dependent Diabetes Mellitus, Dialysis, Hypertension, Syncope Pulmonary RF: Moderate CLD, Sleep Apnea Cardiac Status: Chronic heart failure, Ejection Fraction = 30% Coronary Artery Disease: 3 vessels diseased, Angina equivalent Valve Disease: Severe MR, Mild TR STS for isolated MVR: Procedure Type: Isolated MVR PERIOPERATIVE OUTCOME ESTIMATE % Operative Mortality 16.1% without home O2 (with home O2 = 21%) Morbidity & Mortality 35.8% Stroke 4.02% Renal Failure NA Reoperation 5.85% Prolonged Ventilation 32.7% Deep Sternal Wound Infection 0.435% Long Hospital Stay (>14 days) 27.7% Short Hospital Stay (<6 days)* 6.89% *higher values reflect a better outcome Clinical Summary Planned Surgery: Isolated MVR, Elective, First cardiovascular surgery Demographics: 73 year old, male, 122.1kg, 180.3cm, BMI: 37.6 kg/m Lab Values: Creatinine: 3.78 mg/dL, Hematocrit: 36.5%, WBC Count: 7.49 10 /?L, Platelet Count: [id number] cells/?L PreOp Medications: Insulin diabetes control Substance Abuse: Former smoker Risk Factors / Comorbidities: Insulin-dependent Diabetes Mellitus, Dialysis, Hypertension, Syncope Pulmonary RF: Moderate CLD, Sleep Apnea Cardiac Status: Chronic heart failure, Ejection Fraction = 30% Coronary Artery Disease: 3 vessels diseased, Angina equivalent Valve Disease: Severe MR, Mild TR documented in this encounter [facility] 11-13-2023 Instructions Omayra Calix APRN.CNP - 11/13/2023 3:42 PM EDT You came in to see Dr. Juan today for surgical evaluation of mitral valve regurgitation likely secondary to severe multi vessel coronary artery disease. By reviewing your images/clinical data, Dr. Juan will discuss with our interventional cardiologists if any options for stenting blocked coronary arteries +/- any intervention for catheter-based mitral. No surgical intervention at this time given increased mortality risk. Our office will notify you of their recommendations. Thanks for coming in to see us today. Please call us if you have any concerns/questions: [phone] Omayra Fyock, SIGNALS COLLECTION TECHNICIAN.COMPUTER METEOROLOGIST Cardiothoracic surgery TEST TUBE MAKER documented in this encounter [facility] 11-02-2023 Miscellaneous Notes Images from the original note were not included. Patient notified. Niesha Leblanc LPN November 02, 2023 8:47 AM Omayra Calix APRN.COMPUTER METEOROLOGIST You 15 hours ago (4:51 PM) Can you please let patient know he has appointment with Dr. Juan on 11/13/23 to review results and discuss surgery. Thanks! Patient calling in and left message on Nurse's Line. Patient asking when his heart valve will be fixed? Niesha Leblanc LPN November 01, 2023 3:37 PM documented in this encounter [facility] 10-30-2023 Note HNO ID: [id number] Author: BELEN THURMAN RN Service: ? Author Type: Registered Nurse Type: Nursing Progress Note Filed: 10/30/2023 07:25 Note Text: [id number] patient admitted to POD, pre procedure teaching at bedside and review of medications with patient. [facility] 10-26-2023 Miscellaneous Notes Patient called and informed that his carotid arteries ultrasound report showed stenosis of both internal carotid arteries: R>L. Patient informed that a referral to Vascular Surgery has been ordered. documented in this encounter [facility] 10-22-2023 History of Present illness Narrative [facility] Department of Pulmonary & Sleep Medicine Crystal Bauer DO Pulmonary Progress Note REFERRING PROVIDER: Moises Prater MD, MD Cotomakayla Conley is a 73 year old male who is returning for follow up evaluation of Postinflammatory pulmonary fibrosis, IPD, solitary pulmonary nodule and MACY on CPAP. History of Illness Since Last Visit: Patient states that his breathing is tough. Reviewed recent PFT results with patient. He denies any recent need for fluid drainage or Lasix. Denies any recent hospitalizations. He is to get a Cardiac Catheterization done by Dr. Juan in [place]. He may need bypass and/or mitral valve replacement. Re-reviewed CT chest images from 07/09/2023. Patient continues on CPAP therapy nightly and benefits with use. No hemoptysis, chest pain, pleurisy, wasting syndrome or weight loss. I, Makeda Salamanca MA, transcribing for Crystal Bauer DO. 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 Dolores Welsh COPD (chronic obstructive pulmonary disease) ([facility]) Lead Portfolio Manager Dr. Crystal Bauer Diabetes mellitus type 2 ([facility]) History of cardiovascular stress test 10/10/2021 -Impression: Enlarging dilated LV and the setting of global hypokinesis. Calculated EF 39%. This may represent the sequela of chronic hypertension or other cardiomyopathy. No images evidence of stress-induced myocardial ischemia. History of echocardiogram 03/18/2021 Echocardiogram demonstrates a suboptimal study. EF 50 to 55%. Moderate concentric LVH. Class I diastolic dysfunction. Left atrium is mildly dilated. Mild a S. Mild to moderate MR. Mild TR. Borderline to mild PHT. History of echocardiogram 10/04/2022 EF 45-50%. Left ventricle cavity size is normal. Wall thickness is normal. Systolic funciton is mildly reduced. Hypokinesis of the anterolateral myocardium. Hypokinesis of the inferioir myocardium Grade 2 diastolic dysfunction. Mitral valve the annulus is mildly calcified. The leaflets are moderately thickened. Thickening. Severe regurgitation. Left atrium is mildly dilated. History of echocardiogram 12/22/2022 EF 50% demonstrates concentric left ventricular hypertrophy. Slight hypokinesis of distal septal wall. Mild to moderate MR. Mild TR. Aortic valve is sclerotic, thickened, but the valve area is noted to be normal. History of echocardiogram w/ Bubble Study 09/24/2023 EF 30-35%, LV- moderately enlarged. LA-moderately enlarged. RA-moderately enlarged. Moderate to severe MV regurgitation. Moderate TV regurgitation. Moderate pulmonary hypertension. History of echocardiography 10/07/2021 -Echocardiogram demonstrates of the difficult study with minimal information obtainable. LV is dilated with an EF at 45 to 50%. Diastolic function is indeterminate. Aortic valve is poorly visualized but no evidence for aortic stenosis by Doppler analysis. Moderate mitral annular calcification without hemodynamically significant MS. Mild MR. History of smoking HTN (hypertension) Obstructive sleep apnea on CPAP Peritoneal dialysis status (HCC) 6-days per week, does not do on Sunday. PAST SURGICAL HISTORY Procedure Laterality Date PAST SURGICAL HISTORY OF Right TMA TONSILLECTOMY HX Social History Tobacco Use Smoking status: Former Packs/day: 1.00 Years: 14.00 Additional pack years: 0.00 Total pack years: 14.00 Types: Cigarettes Start date: 1965 Quit date: 08/20/1979 Years since quittin.2 Smokeless tobacco: Never Vaping Use Vaping Use: Never used Substance Use Topics Alcohol use: Never Drug use: Never ALLERGIES: ALLERGIES Allergen Reactions Amlodipine Swelling Aspirin Other: See Comments tacchycardia Victoza [Liraglutid* Other: See Comments MEDICATIONS: Current Outpatient Medications Medication Sig sodium chloride 0.9 %, flush, (BD POSIFLUSH) syringe Inject 2-10 mL intravenously as directed. For Echo procedure CPAP 1 Each by Mask route daily at bedtime. Dasco insulin lispro (HUMALOG KWIKPEN INSULIN SUBCUTANEOUS) Inject 5 Units/day subcutaneously two times a day. Lunch and Dinner dapagliflozin propanediol (FARXIGA) 10 mg tablet Take 10 mg by mouth daily with breakfast. carvedilol (COREG) 6.25 mg tablet Take 1 tablet by mouth twice daily. cholecalciferol (VITAMIN D) 1,000 unit tab tablet Take 1,000 Units by mouth once daily. insulin glargine (LANTUS) 100 unit/mL injection Inject 10 Units subcutaneously two times a day. OXYGEN, HOME THERAPY, Inhale 1.5 L/min as instructed as needed for wheezing/shortness of breath. allopurinol (ZYLOPRIM) 100 mg tablet Take 100 mg by mouth once daily. tamsulosin ER (FLOMAX) 0.4 mg Take 0.4 mg by mouth once daily. No current facility-administered medications for this visit. IMMUNIZATIONS: There is no immunization history on file for this patient. FAMILY HISTORY Problem Relation Age of Onset Diabetes Father No Known Problems Sister Diabetes Sister Heart disease Sister Arrythmias Brother Diabetes Brother I have personally reviewed the patients past medical history including social, family, surgical, diagnostics, and medications./WS REVIEW OF SYSTEMS Review of Systems Constitutional: Positive for fatigue. HENT: Negative. Eyes: Negative. Respiratory: Positive for apnea and shortness of breath. Cardiovascular: Positive for leg swelling. Gastrointestinal: Negative. Endocrine: Negative. Genitourinary: Negative. Musculoskeletal: Negative. Skin: Negative. Allergic/Immunologic: Negative. Neurological: Negative. Hematological: Negative. Psychiatric/Behavioral: Positive for sleep disturbance. Vital Signs: BP 139/79 Pulse 73 Resp 18 Ht 5' 11 (1.80m) Wt 268 lb (121.6kg) SpO2 96[RA]% BMI 37.39 kg/(m^2). PHYSICAL EXAM: Vitals: BP 139/79 Pulse 73 Resp 18 Ht 5' 11 (1.80m) Wt 268 lb (121.6kg) SpO2 96[RA]% BMI 37.39 kg/(m^2). Const: Appears appropriate for age, well-developed, well-hydrated, well-nourished and pleasant. No signs of acute distress present and no signs of respiratory distress present. Breasts are examined. External genitalia and rectal exams were not performed. Head/Face: Normal on inspection. Symmetric facies. Eyes: Pupils equal round and reactive to light and accommodation. Visual acuity grossly intact. Does wear corrective lenses. ENMT: External ears wnl. Tympanic membranes translucent, with good landmarks bilaterally. Nasal mucosa is pink and moist. Septum is in the midline. Inferior turbinates are normal without hypertrophy. No dental decay. Oropharynx: Appears normal. Tongue appears normal. Mallampati Score: Class IV: Soft palate, base of uvula are wnl. No oral lesions, or candidiasis. Neck: Supple and symmetric. Palpation reveals no lymphadenopathy. Trachea midline. Thyroid is normal size. No JVD. Carotids: 2+upstroke and equal bilaterally, without bruits. Resp: AP diameter is unremarkable. Respiration rate is normal. No use of accessory muscles noted. No wheezing. Percussion is resonant and equal. Voice resonance is clear. Chest is normal to inspection and palpation. No extranneous sounds, wheeze, rhonchi, rub, dullness to percussion, or egophony. No bronchial breath sounds, or pectoriloquy. No laryngeal stridor. Crackles on the left CV: S1 is normal. S2 is normal. No murmur, clicks, gallops or rub. Capillary refill is normal. No LV or RV heave. No gross pulse deficits. Abdomen: Positive bowel sounds. No bruits. No tenderness over the abdomen on percussion. No pulsatile masses present. No palpable hepatosplenomegaly. No pulsatile mass, bruit, and inguinal adenopathy, or femoral bruits. Lymph: No palpable or visual regional lymphadenopathy. Musculo: Upper Extremities: Normal muscle tone bilaterally. Normal ROM bilaterally. Lower Extremities: Normal muscle tone. Full ROM bilaterally. No digital clubbing, cyanosis , lymphedema, or pitting edema. Skin: Skin warm and dry with no evidence of unusual rashes or suspicious lesions. No obvious decubiti, or active synovitis. Neuro: Alert and oriented 3. Achilles and patellar DTR's are brisk and symmetrical. Coordination normal. Good mobility of all extremities. Cranial nerves grossly intact. Psych: Affect is normal. Thought process appears clear and appropriate. T.OBESE DATA REVIEW Chest X-rays: 07/23/2023 1. Bilateral pleural effusions, moderate on the right and small on the left. 2. Additional findings suggesting a component of pulmonary edema. PFT's: 10/17/2023 Spirometry indicates moderate restriction. The TLC, RV and RV/TLC are normal. The diffusing capacity is normal. ECHO: 09/24/2023 EF 30-35%. Atrial pressure 3 mmHg. Oximetry : 96% saturated at rest on room air. [place] Sleepiness Scale: 9 ASSESSMENT/PLAN: 1. MACY on CPAP - ICD9: 327.23, ICD10: G47.33 (primary diagnosis) Compliant with pap therapy and benefits from use. 2. Postinflammatory pulmonary fibrosis (HCC) - ICD9: 515, ICD10: J84.10 mild 3. DCM (dilated cardiomyopathy) (HCC) - ICD9: 425.4, ICD10: I42.0 4. SOB (shortness of breath) on exertion - ICD9: 786.05, ICD10: R06.02 5. Obesity, Class II, BMI 35-39.9 - ICD9: 278.00, ICD10: E66.9 6. Nonrheumatic mitral valve regurgitation - ICD9: 424.0, ICD10: I34.0 7. Chronic HFrEF (heart failure with reduced ejection fraction) (HCC) - ICD9: 428.22, ICD10: I50.22 For cath: cabg/mvr evaluation. 8. Pleural effusion - ICD9: 511.9, ICD10: J90 Left small 2022 Crystal Bauer (Electronically signed expedite mailing) FOLLOW UP: Return in about 3 months (around 01/22/2024). This note was generated with voice recognition software and may contain errors including spelling, grammar, and syntax and mis-recognition of what was dictated that are not fully corrected. I have discussed the recommended treatment, alternative treatments and other treatment options in detail. I have discussed the risks, benefits and side effects of the recommended treatment in detail as well. I have attempted to answer all their questions to their satisfaction, and understanding of the explanation has been voiced. With approval we will pursue the recommended treatment. I, Crystal Bauer, have reviewed and agree with the information in the medical record transcribed by Makeda Salamanca MA. Crystal Bauer DO documented in this encounter [facility] 10-17-2023 History of Present illness Narrative PULM FUNCTION SMARTBLOCK: Provider: Omayra Calix APRN.CNP Spirometry: 1 DLCO: 1 LV - Box: 1 documented in this encounter [facility] 10-16-2023 Note HNO ID: [id number] Author: AKHIL JUAN MD Service: ? Author Type: Physician Type: Progress Notes Filed: 10/16/2023 12:03 Note Text: CARDIOTHORACIC SURGERY CONSULT / HANDP SERVICE DATE: 10/16/2023 SERVICE TIME: 11:43 AM Subjective PRIMARY SERVICE: Cardiothoracic Surgery CHIEF COMPLAINT: severe mitral regurgitation, cardiomyopathy, acute on chronic combined systolic and diastolic CHF ted setting of CKD on peritoneal dialysis (diabetic nephropathy) and chronic lung disease (COPD, ILD) HPI: This is a 73 year old man referred for evaluation of severe mitral regurgitation, cardiomyopathy, acute on chronic combined systolic and diastolic CHF ted setting of CKD on peritoneal dialysis (diabetic nephropathy) and chronic lung disease (COPD, ILD). He has had serial echos over the past few years which have shown variable amounts of MR and largely well-preserved LVEF. His most recent echo in our system is from 12/2022: Echocardiogram demonstrates concentric left ventricular hypertrophy. Ejection fraction 50%. Seems to be slight hypokinesis of distal septal wall. Mild to moderate degree of mitral regurgitation. Mild degree of tricuspid regurgitation. PA pressure increased at 35 mmHg. Aortic valve is sclerotic, thickened, but the valve area is noted to be normal He has had previous admission for acute CHF, but he cannot tell me the underlying factors. He had a recent episode of syncope and echo performed at [facility] 09/2023 showed EF 35% with anterolateral, anterior, and apical hypokinesia; moderately enlarged left atrium; moderate MAC; thickened and calcified leaflets and cords; moderate to severe MR; mild to moderate TR. He is wearing a 30 day rhythm event monitor. He is scheduled for a stress test this week. He has exertion limiting dyspnea of several years duration, but more so over the past year. He denies chest pressure, heaviness, burning. He has chronic LE edema. He denies orthopnea, PND. He has no h/o [place], [place], PCI, etc. He is followed by Dr. Bauer of Pulm Med for multiple chronic pulmonary issues, including COPD, post inflammatory pulmonary fibrosis, pulmonary nodules, and MACY on CPAP. He has a remote h/o tobacco use. He does not use supplemental oxygen. CT chest from 06/2023 showed: Lung imaging: Increasing bilateral pleural effusions, moderate on the right and small on the left. No evidence for pneumothorax. Scattered bibasilar linear and reticular pulmonary markings. Mild linear atelectasis bilateral upper lobes. Mild circumferential airway wall thickening in the fozia and perihilar regions. No gross suspicious lung nodules however, atelectasis limits evaluation. Additional findings: Lack of IV contrast limits soft tissue differentiation. Included portion thyroid grossly normal in appearance. There are multiple mediastinal lymph nodes. The largest is located in the subcarinal location and is felt to measure up to approximately 4 x 1.2 by 2 cm. This is relatively similar caliber dating back to May 25, 2021 CT. Multi-vessel coronary artery disease with stenosis not quantified by this exam. Heart mildly enlarged. Small pericardial effusion. No hiatal hernia. No acute subdiaphragmatic process at included level. However, there is mild circumferential gallbladder wall thickening measuring up to 6 mm and several choleliths. No pericholecystic fatty stranding. Aorta and main pulmonary arteries normal in course and caliber. He has CKD and is on peritoneal dialysis for about 1 yeaer. PAST MEDICAL HISTORY Diagnosis Date Acute and chronic respiratory failure with hypoxia ([facility]) BPH (benign prostatic hyperplasia) Chronic kidney failure, stage 4 (severe) ([facility]) Pyrotechnic Assembler Dr. Dolores Welsh COPD (chronic obstructive pulmonary disease) ([facility]) Lead Portfolio Manager Dr. Crystal Bauer Diabetes mellitus type 2 ([facility]) History of cardiovascular stress test 10/10/2021 -Impression: Enlarging dilated LV and the setting of global hypokinesis. Calculated EF 39%. This may represent the sequela of chronic hypertension or other cardiomyopathy. No images evidence of stress-induced myocardial ischemia. History of echocardiogram 03/18/2021 Echocardiogram demonstrates a suboptimal study. EF 50 to 55%. Moderate concentric LVH. Class I diastolic dysfunction. Left atrium is mildly dilated. Mild a S. Mild to moderate MR. Mild TR. Borderline to mild PHT. History of echocardiogram 10/04/2022 EF 45-50%. Left ventricle cavity size is normal. Wall thickness is normal. Systolic funciton is mildly reduced. Hypokinesis of the anterolateral myocardium. Hypokinesis of the inferioir myocardium Grade 2 diastolic dysfunction. Mitral valve the annulus is mildly calcified. The leaflets are moderately thickened. Thickening. Severe regurgitation. Left atrium is mildly dilated. History of echocardiogram 12/22/2022 EF 50% demonstrates concentric left ventricular hyper (more content not included)... [facility] 10-16-2023 Note HNO ID: [id number] Author: OMAYRA CALIX APRN.COMPUTER METEOROLOGIST Service: ? Author Type: Nurse Practitioner Type: Progress Notes Filed: 10/16/2023 12:03 Note Text: STS Procedure Type: Isolated MVR PERIOPERATIVE OUTCOME ESTIMATE % Operative Mortality 14.8% Morbidity AND Mortality 36.5% Stroke 3.89% Renal Failure NA Reoperation 6.49% Prolonged Ventilation 29% Deep Sternal Wound Infection 0.228% Long Hospital Stay (>14 days) 21.2% Short Hospital Stay (<6 days)* 8.78% *higher values reflect a better outcome Clinical Summary Planned Surgery: Isolated MVR, Elective, First cardiovascular surgery Demographics: 73 year old, male, 121.6kg, 180.3cm, BMI: 37.4 kg/m? Lab Values: Creatinine: 3.72 mg/dL, Hematocrit: 44.8%, WBC Count: 5.9 10?/?L, Platelet Count: 169795 cells/?L PreOp Medications: Insulin diabetes control Substance Abuse: Former smoker Risk Factors / Comorbidities: Insulin-dependent Diabetes Mellitus, Dialysis, Hypertension, Family Hx of CAD, Syncope Pulmonary RF: Severity Unknown CLD, Home O?, Sleep Apnea Cardiac Status: Acute and chronic heart failure, Ejection Fraction = 30% Coronary Artery Disease: Angina equivalent Valve Disease: Severe MR, Moderate TR STS for CABG AND MVR: PERIOPERATIVE OUTCOME ESTIMATE % Operative Mortality 31% Morbidity AND Mortality 50.1% Stroke 1.56% Renal Failure NA Reoperation 9.47% Prolonged Ventilation 48.7% Deep Sternal Wound Infection 0.827% Long Hospital Stay (>14 days) 42.5% Short Hospital Stay (<6 days)* 2.18% *higher values reflect a better outcome Clinical Summary Planned Surgery: CABG + MVR, Elective, First cardiovascular surgery Demographics: 73 year old, male, 121.6kg, 180.3cm, BMI: 37.4 kg/m? Lab Values: Creatinine: 3.72 mg/dL, Hematocrit: 44.8%, WBC Count: 5.9 10?/?L, Platelet Count: 610340 cells/?L PreOp Medications: Insulin diabetes control Substance Abuse: Former smoker Risk Factors / Comorbidities: Insulin-dependent Diabetes Mellitus, Dialysis, Hypertension, Family Hx of CAD, Syncope Pulmonary RF: Severity Unknown CLD, Home O?, Sleep Apnea Cardiac Status: Acute and chronic heart failure, Ejection Fraction = 30% Coronary Artery Disease: Angina equivalent Valve Disease: Severe MR, Moderate TR [facility] 10-16-2023 History of Present illness Narrative CARDIOTHORACIC SURGERY CONSULT / H&P SERVICE DATE: 10/16/2023 SERVICE TIME: 11:43 AM Subjective PRIMARY SERVICE: Cardiothoracic Surgery CHIEF COMPLAINT: severe mitral regurgitation, cardiomyopathy, acute on chronic combined systolic and diastolic CHF ted setting of CKD on peritoneal dialysis (diabetic nephropathy) and chronic lung disease (COPD, ILD) HPI: This is a 73 year old man referred for evaluation of severe mitral regurgitation, cardiomyopathy, acute on chronic combined systolic and diastolic CHF ted setting of CKD on peritoneal dialysis (diabetic nephropathy) and chronic lung disease (COPD, ILD). He has had serial echos over the past few years which have shown variable amounts of MR and largely well-preserved LVEF. His most recent echo in our system is from 12/2022: Echocardiogram demonstrates concentric left ventricular hypertrophy. Ejection fraction 50%. Seems to be slight hypokinesis of distal septal wall. Mild to moderate degree of mitral regurgitation. Mild degree of tricuspid regurgitation. PA pressure increased at 35 mmHg. Aortic valve is sclerotic, thickened, but the valve area is noted to be normal He has had previous admission for acute CHF, but he cannot tell me the underlying factors. He had a recent episode of syncope and echo performed at [facility] 09/2023 showed EF 35% with anterolateral, anterior, and apical hypokinesia; moderately enlarged left atrium; moderate MAC; thickened and calcified leaflets and cords; moderate to severe MR; mild to moderate TR. He is wearing a 30 day rhythm event monitor. He is scheduled for a stress test this week. He has exertion limiting dyspnea of several years duration, but more so over the past year. He denies chest pressure, heaviness, burning. He has chronic LE edema. He denies orthopnea, PND. He has no h/o [place], [place], PCI, etc. He is followed by Dr. Bauer of Pulm Med for multiple chronic pulmonary issues, including COPD, post inflammatory pulmonary fibrosis, pulmonary nodules, and MACY on CPAP. He has a remote h/o tobacco use. He does not use supplemental oxygen. CT chest from 06/2023 showed: Lung imaging: Increasing bilateral pleural effusions, moderate on the right and small on the left. No evidence for pneumothorax. Scattered bibasilar linear and reticular pulmonary markings. Mild linear atelectasis bilateral upper lobes. Mild circumferential airway wall thickening in the fozia and perihilar regions. No gross suspicious lung nodules however, atelectasis limits evaluation. Additional findings: Lack of IV contrast limits soft tissue differentiation. Included portion thyroid grossly normal in appearance. There are multiple mediastinal lymph nodes. The largest is located in the subcarinal location and is felt to measure up to approximately 4 x 1.2 by 2 cm. This is relatively similar caliber dating back to May 25, 2021 CT. Multi-vessel coronary artery disease with stenosis not quantified by this exam. Heart mildly enlarged. Small pericardial effusion. No hiatal hernia. No acute subdiaphragmatic process at included level. However, there is mild circumferential gallbladder wall thickening measuring up to 6 mm and several choleliths. No pericholecystic fatty stranding. Aorta and main pulmonary arteries normal in course and caliber. He has CKD and is on peritoneal dialysis for about 1 yeaer. PAST MEDICAL HISTORY Diagnosis Date Acute and chronic respiratory failure with hypoxia ([facility]) BPH (benign prostatic hyperplasia) Chronic kidney failure, stage 4 (severe) ([facility]) Pyrotechnic Assembler Dr. Dolores Welsh COPD (chronic obstructive pulmonary disease) ([facility]) Lead Portfolio Manager Dr. Crystal Bauer Diabetes mellitus type 2 ([facility]) History of cardiovascular stress test 10/10/2021 -Impression: Enlarging dilated LV and the setting of global hypokinesis. Calculated EF 39%. This may represent the sequela of chronic hypertension or other cardiomyopathy. No images evidence of stress-induced myocardial ischemia. History of echocardiogram 03/18/2021 Echocardiogram demonstrates a suboptimal study. EF 50 to 55%. Moderate concentric LVH. Class I diastolic dysfunction. Left atrium is mildly dilated. Mild a S. Mild to moderate MR. Mild TR. Borderline to mild PHT. History of echocardiogram 10/04/2022 EF 45-50%. Left ventricle cavity size is normal. Wall thickness is normal. Systolic funciton is mildly reduced. Hypokinesis of the anterolateral myocardium. Hypokinesis of the inferioir myocardium Grade 2 diastolic dysfunction. Mitral valve the annulus is mildly calcified. The leaflets are moderately thickened. Thickening. Severe regurgitation. Left atrium is mildly dilated. History of echocardiogram 12/22/2022 EF 50% demonstrates concentric left ventricular hypertrophy. Slight hypokinesis of distal septal wall. Mild to moderate MR. Mild TR. Aortic valve is sclerotic, thickened, but the valve area is noted to be normal. History of echocardiogram w/ Bubble Study 09/24/2023 EF 30-35%, LV- moderately enlarged. LA-moderately enlarged. RA-moderately enlarged. Moderate to severe MV regurgitation. Moderate TV regurgitation. Moderate pulmonary hypertension. History of echocardiography 10/07/2021 -Echocardiogram demonstrates of the difficult study with minimal information obtainable. LV is dilated with an EF at 45 to 50%. Diastolic function is indeterminate. Aortic valve is poorly visualized but no evidence for aortic stenosis by Doppler analysis. Moderate mitral annular calcification without hemodynamically significant MS. Mild MR. History of smoking HTN (hypertension) Obstructive sleep apnea on CPAP Peritoneal dialysis status (HCC) 6-days per week, does not do on Sunday. PAST SURGICAL HISTORY Procedure Laterality Date PAST SURGICAL HISTORY OF Right TMA TONSILLECTOMY HX FAMILY HISTORY Problem Relation Age of Onset Diabetes Father No Known Problems Sister Diabetes Sister Heart disease Sister Arrythmias Brother Diabetes Brother Social History Tobacco Use Smoking status: Former Packs/day: 1.00 Years: 14.00 Additional pack years: 0.00 Total pack years: 14.00 Types: Cigarettes Start date: 1965 Quit date: 08/20/1979 Years since quittin.1 Smokeless tobacco: Never Vaping Use Vaping Use: Never used Substance Use Topics Alcohol use: Never Drug use: Never (Not in a hospital admission) CPAP 1 Each by Mask route daily at bedtime. Dasco insulin lispro (HUMALOG KWIKPEN INSULIN SUBCUTANEOUS) Inject 5 Units/day subcutaneously two times a day. Lunch and Dinner dapagliflozin propanediol (FARXIGA) 10 mg tablet Take 10 mg by mouth daily with breakfast. carvedilol (COREG) 6.25 mg tablet Take 1 tablet by mouth twice daily. cholecalciferol (VITAMIN D) 1,000 unit tab tablet Take 1,000 Units by mouth once daily. insulin glargine (LANTUS) 100 unit/mL injection Inject 10 Units subcutaneously two times a day. OXYGEN, HOME THERAPY, Inhale 1.5 L/min as instructed as needed for wheezing/shortness of breath. allopurinol (ZYLOPRIM) 100 mg tablet Take 100 mg by mouth once daily. tamsulosin ER (FLOMAX) 0.4 mg Take 0.4 mg by mouth once daily. ALLERGIES Allergen Reactions Amlodipine Swelling Aspirin Other: See Comments tacchycardia Victoza [Liraglutid* Other: See Comments REVIEW OF SYSTEMS: As above. No CVA, hepatic disease, cancer, bleeding, thrombosis. Objective PHYSICAL EXAM: BP 124/70 (BP Site: Left Arm, BP Position: Sitting) Pulse 78 Resp 18 Ht 5' 11 (1.803 m) Wt 268 lb (121.6 kg) SpO2 96% BMI 37.38 kg/m Body surface area is 2.47 meters squared. STS RISK CALCULATOR: MVR 14.% MVR + CABG 30% STS Calculator On examination, he appears well and is breathing comfortably. Vitals signs are BP 124/70 (BP Site: Left Arm, BP Position: Sitting) Pulse 78 Resp 18 Ht 5' 11 (1.803 m) Wt 268 lb (121.6 kg) SpO2 96% BMI 37.38 kg/m . There is no JVD. No cervical or supraclavicular adenopathy is palpated. The chest is symmetrical without deformity. Breath sounds are clear bilaterally. The cardiac rhythm is regular. There is a 3/6 blowing systolic murmur at the left axilla.. The carotid, subclavian, and radial pulses are 2+ and equal bilaterally. The abdomen is soft and non-tender. There are no abdominal masses. There is no hepatojugular reflux. There is no pretibial edema. There is no clubbing or cyanosis. Assessment/Plan Pete Conley is a 73 year old man found to have moderate to severe MR with new decrement in LVEF as seen on outside echo ( have no images, only report), mechanism not clear, but certainly rheumatic and./or ischemic etiologies are of concern, with chronic combined systolic and diastolic CHF in a setting of multiple severe comorbidities. I recommend the following: Further assessment of MV structure and function with MILA left and right heart cath; these will be more informative than stress testing. PFT Further recommendations to follow. The risks, benefits, and anticipated outcomes of the procedure; the risks and benefits of the alternatives to the procedure; and the roles and tasks of the personnel to be involved were discussed with the patient and he consents to the procedure and agrees to proceed. These findings will be communicated back to the requesting provider electronically. SIGNATURE: Akhil Juan MD PATIENT NAME: Pete Conley DATE: October 16, 2023 TIME: 11:43 AM PAGER/CONTACT #: [phone] STS Procedure Type: Isolated MVR PERIOPERATIVE OUTCOME ESTIMATE % Operative Mortality 14.8% Morbidity & Mortality 36.5% Stroke 3.89% Renal Failure NA Reoperation 6.49% Prolonged Ventilation 29% Deep Sternal Wound Infection 0.228% Long Hospital Stay (>14 days) 21.2% Short Hospital Stay (<6 days)* 8.78% *higher values reflect a better outcome Clinical Summary Planned Surgery: Isolated MVR, Elective, First cardiovascular surgery Demographics: 73 year old, male, 121.6kg, 180.3cm, BMI: 37.4 kg/m Lab Values: Creatinine: 3.72 mg/dL, Hematocrit: 44.8%, WBC Count: 5.9 10 /?L, Platelet Count: 937451 cells/?L PreOp Medications: Insulin diabetes control Substance Abuse: Former smoker Risk Factors / Comorbidities: Insulin-dependent Diabetes Mellitus, Dialysis, Hypertension, Family Hx of CAD, Syncope Pulmonary RF: Severity Unknown CLD, Home O?, Sleep Apnea Cardiac Status: Acute and chronic heart failure, Ejection Fraction = 30% Coronary Artery Disease: Angina equivalent Valve Disease: Severe MR, Moderate TR STS for CABG & MVR: PERIOPERATIVE OUTCOME ESTIMATE % Operative Mortality 31% Morbidity & Mortality 50.1% Stroke 1.56% Renal Failure NA Reoperation 9.47% Prolonged Ventilation 48.7% Deep Sternal Wound Infection 0.827% Long Hospital Stay (>14 days) 42.5% Short Hospital Stay (<6 days)* 2.18% *higher values reflect a better outcome Clinical Summary Planned Surgery: CABG + MVR, Elective, First cardiovascular surgery Demographics: 73 year old, male, 121.6kg, 180.3cm, BMI: 37.4 kg/m Lab Values: Creatinine: 3.72 mg/dL, Hematocrit: 44.8%, WBC Count: 5.9 10 /?L, Platelet Count: 362072 cells/?L PreOp Medications: Insulin diabetes control Substance Abuse: Former smoker Risk Factors / Comorbidities: Insulin-dependent Diabetes Mellitus, Dialysis, Hypertension, Family Hx of CAD, Syncope Pulmonary RF: Severity Unknown CLD, Home O?, Sleep Apnea Cardiac Status: Acute and chronic heart failure, Ejection Fraction = 30% Coronary Artery Disease: Angina equivalent Valve Disease: Severe MR, Moderate TR documented in this encounter [facility] 10-16-2023 Instructions Omayra Calix APRN.CNP - 10/16/2023 11:19 AM EST You came in to see Dr. Juan today for surgical evaluation of mitral valve disease. By reviewing your images/clinical data, Dr. Juan recommends obtaining the following tests which will be scheduled for you by our office: Transesophageal echocardiogram Right and left cardiac catheterization Pulmonary function tests Dr. Juan recommends heart catheterization which will be more informative rather than stress test. Please keep your appointment for carotid ultrasound on 10/26/23. Once above tests (and heart monitor) are resulted, we will see you in the office to discuss next steps. Thanks for coming in to see us today. Please call us if you have any concerns/questions: [phone] Omayra Calix APRN.CRISELDA Cardiothoracic surgery TEST TUBE MAKER documented in this encounter [facility] 10-16-2023 Nurse Note CARDIAC REHAB 5 METER WALK TEST SERVICE DATE: 10/16/2023 SERVICE TIME: 1035 ASSESSMENT: Pete states is short of breath with walk test & light headed after 2nd time. Rested for 15 seconds & lightheadedness gone. 7.82 sec. 8.00 sec 8.62 sec SIGNATURE: Vanesa Crum LPN PATIENT NAME: Pete Conley DATE: October 16, 2023 TIME: 10:52 AM PAGER/CONTACT #: [phone] documented in this encounter [facility] 10-08-2023 Note Referral reviewed. P maritza has 3-4+ MR and needs scheduled in the valve clinic. Echocardiogram completed at [facility] on 09/27/23. Medhat Erickson notified to schedule and obtain echo images. [facility] 10-08-2023 Note Received referral fo r cardiology. Printed and scanned into chart under Media. Susannah will you please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 nodule and MACY on CPAP. History of Illness Since Last Visit: Patient states that his breathing has been tough but not too bad. CT results and images were reviewed and discussed with patient. Patient does state that he has production when he coughs, this is a white/yellow color. He has not had any antibiotics in since he had his CT scan. Will prescribe ATB and will repeat CT scan in 3 months. No hemoptysis, chest pain, pleurisy, wasting syndrome or weight loss. I, Makeda Salamanca MA, transcribing for Crystal Bauer DO. HISTORY PAST MEDICAL HISTORY Diagnosis Date Acute and chronic respiratory failure with hypoxia (HCC) BPH (benign prostatic hyperplasia) Community acquired pneumonia Diabetes (HCC) History of cardiovascular stress test 10/10/2021 -Impression: Enlarging dilated LV and the setting of global hypokinesis. Calculated EF 39%. This may represent the sequela of chronic hypertension or other cardiomyopathy. No images evidence of stress-induced myocardial ischemia. History of echocardiogram 03/18/2021 Echocardiogram demonstrates a suboptimal study. EF 50 to 55%. Moderate concentric LVH. Class I diastolic dysfunction. Left atrium is mildly dilated. Mild a S. Mild to moderate MR. Mild TR. Borderline to mild PHT. History of echocardiogram 10/04/2022 EF 45-50%. Left ventricle cavity size is normal. Wall thickness is normal. Systolic funciton is mildly reduced. Hypokinesis of the anterolateral myocardium. Hypokinesis of the inferioir myocardium Grade 2 diastolic dysfunction. Mitral valve the annulus is mildly calcified. The leaflets are moderately thickened. Thickening. Severe regurgitation. Left atrium is mildly dilated. History of echocardiogram 12/22/2022 EF 50% demonstrates concentric left ventricular hypertrophy. Slight hypokinesis of distal septal wall. Mild to moderate MR. Mild TR. Aortic valve is sclerotic, thickened, but the valve area is noted to be normal. History of echocardiography 10/07/2021 -Echocardiogram demonstrates of the difficult study with minimal information obtainable. LV is dilated with an EF at 45 to 50%. Diastolic function is indeterminate. Aortic valve is poorly visualized but no evidence for aortic stenosis by Doppler analysis. Moderate mitral annular calcification without hemodynamically significant MS. Mild MR. History of smoking HTN (hypertension) Obstructive sleep apnea on CPAP PAST SURGICAL HISTORY Procedure Laterality Date PAST SURGICAL HISTORY OF Right TMA TONSILLECTOMY HX Social History Tobacco Use Smoking status: Former Packs/day: 1.00 Years: 14.00 Additional pack years: 0.00 Total pack years: 14.00 Types: Cigarettes Quit date: 08/20/1979 Years since quittin.6 Smokeless tobacco: Never Vaping Use Vaping Use: Never used Substance Use Topics Alcohol use: Never Drug use: Never ALLERGIES: ALLERGIES Allergen Reactions Amlodipine Swelling Aspirin Other: See Comments tacchycardia Victoza [Liraglutid* Other: See Comments MEDICATIONS: Current Outpatient Medications Medication Sig carvedilol (COREG) 6.25 mg tablet Take 1 tablet by mouth twice daily. cholecalciferol (VITAMIN D) 1,000 unit tab tablet Take 1,000 Units by mouth once daily. insulin glargine (LANTUS) 100 unit/mL injection Inject 15 Units subcutaneously daily at bedtime. finasteride (PROSCAR) 5 mg tablet Take 5 mg by mouth once daily. doxycycline (VIBRA-TABS) 100 mg tablet OXYGEN, HOME THERAPY, Inhale 1.5 L/min as instructed continuous. allopurinol (ZYLOPRIM) 100 mg tablet Take 100 mg by mouth once daily. glipiZIDE (GLUCOTROL) 5 mg tablet Take 10 mg by mouth twice daily. tamsulosin ER (FLOMAX) 0.4 mg Take 0.4 mg by mouth once daily. pioglitazone (ACTOS) 30 mg tablet Take 30 mg by mouth once daily. hydrALAZINE (APRESOLINE) 50 mg tablet Take 1 tablet by mouth twice daily with meals. (Patient not taking: Reported on 04/19/2023) No current facility-administered medications for this visit. IMMUNIZATIONS: There is no immunization history on file for this patient. FAMILY HISTORY Problem Relation Age of Onset Diabetes Father No Known Problems Sister Arrythmias Brother Diabetes Brother Diabetes Sister Heart disease Sister I have personally reviewed the patients past medical history including social, family, surgical, diagnostics, and medications./WS REVIEW OF SYSTEMS Review of Systems Constitutional: Positive for fatigue. HENT: Positive for congestion. Eyes: Negative. Respiratory: Positive for apnea, cough and shortness of breath. Cardiovascular: Negative. Gastrointestinal: Negative. Endocrine: Negative. Genitourinary: Negative. Musculoskeletal: Negative. Skin: Negative. Allergic/Immunologic: Negative. Neurological: Negative. Hematological: Negative. Psychiatric/Behavioral: Positive for sleep disturbance. Vital Signs: BP 145/81 Pulse 85 Resp 16 Ht 5' 11 (1.80m) Wt 264 lb (119.8kg) SpO2 96[RA]% BMI 36.84 kg/(m^2). PHYSICAL EXAM: Vitals: BP 145/81 Pulse 85 Resp 16 Ht 5' 11 (1.80m) Wt 264 lb (119.8kg) SpO2 96[RA]% BMI 36.84 kg/(m^2). Const: Appears appropriate for age, well-developed, well-hydrated, well-nourished and pleasant. No signs of acute distress present and no signs of respiratory distress present. Breasts are examined. External genitalia and rectal exams were not performed. Head/Face: Normal on inspection. Symmetric facies. Eyes: Pupils equal round and reactive to light and accommodation. Visual acuity grossly intact. Does wear corrective lenses. ENMT: External ears wnl. Tympanic membranes translucent, with good landmarks bilaterally. Nasal mucosa is pink and moist. Septum is in the midline. Inferior turbinates are normal without hypertrophy. No dental decay. Oropharynx: Appears normal. Tongue appears normal. Mallampati Score: Class IV: Soft palate, base of uvula are wnl. No oral lesions, or candidiasis. Neck: Supple and symmetric. Palpation reveals no lymphadenopathy. Trachea midline. Thyroid is normal size. No JVD. Carotids: 2+upstroke and equal bilaterally, without bruits. Resp: AP diameter is unremarkable. Respiration rate is normal. No use of accessory muscles noted. No wheezing. Percussion is resonant and equal. Voice resonance is clear. Chest is normal to inspection and palpation. No extranneous sounds, wheeze, rhonchi, rub, dullness to percussion, or egophony. No bronchial breath sounds, or pectoriloquy. No laryngeal stridor.diminished but clear bs's left base. CV: S1 is normal. S2 is normal. No murmur, clicks, gallops or rub. Capillary refill is normal. No LV or RV heave. No gross pulse deficits. Abdomen: Positive bowel sounds. No bruits. No tenderness over the abdomen on percussion. No pulsatile masses present. No palpable hepatosplenomegaly. No pulsatile mass, bruit, and inguinal adenopathy, or femoral bruits. Lymph: No palpable or visual regional lymphadenopathy. Musculo: Upper Extremities: Normal muscle tone bilaterally. Normal ROM bilaterally. Lower Extremities: Normal muscle tone. Full ROM bilaterally. No digital clubbing, cyanosis , lymphedema, or pitting edema. Skin: Skin warm and dry with no evidence of unusual rashes or suspicious lesions. No obvious decubiti, or active synovitis. Neuro: Alert and oriented 3. Achilles and patellar DTR's are brisk and symmetrical. Coordination normal. Good mobility of all extremities. Cranial nerves grossly intact. Psych: Affect is normal. Thought process appears clear and appropriate. T.OBESE DATA REVIEW Chest X-rays: 03/05/23 IMPRESSION: Left basilar airspace disease could relate to pneumonia in the proper clinical setting. Follow to resolution. Asymmetric density in the right lung apex is not visible on the recent prior exams and is presumably related to the rotation of the radiograph. CT Scans: 04/04/23 IMPRESSION: Previously seen 1.2 cm left lower lobe ground-glass nodule is obscured by the left-sided pleural effusion. There is a new 0.7 cm nodule in the left upper lobe not seen on prior exam, given the interval development from recent exam of 12/18/2022 this is most likely a subclinical infectious/inflammatory process. Per Fleischner society guidelines recommend a follow-up exam in 6-12 months. At time of follow-up CT, a prone exam could be obtained in addition to supine in order to visualize the left lower lobe nodule versus prior thoracentesis. Similar incidental and chronic findings as above, including mild ascites, and cholelithiasis. Oximetry : 96% saturated at rest on room air. ASSESSMENT/PLAN: 1. Chronic obstructive pulmonary disease, unspecified COPD type (HCC) - ICD9: 496, ICD10: J44.9 (primary diagnosis) Same inhalants 2. Pulmonary nodules - ICD9: 793.19, ICD10: R91.8 zpack 3. Postinflammatory pulmonary fibrosis (HCC) - ICD9: 515, ICD10: J84.10 4. MACY on CPAP - ICD9: 327.23, V46.8, ICD10: G47.33 Compliant with pap therapy and benefits from use. 5. DCM (dilated cardiomyopathy) (HCC) - ICD9: 425.4, ICD10: I42.0 6. Former smoker - ICD9: V15.82, ICD10: Z87.891 7. Pleural effusion - ICD9: 511.9, ICD10: J90 Bilateral - small. Crystal Bauer (Electronically signed expedite mailing) FOLLOW UP: Return in about 3 months (around 07/19/2023). This note was generated with voice recognition software and may contain errors including spelling, grammar, and syntax and mis-recognition of what was dictated that are not fully corrected. I have discussed the recommended treatment, alternative treatments and other treatment options in detail. I have discussed the risks, benefits and side effects of the recommended treatment in detail as well. I have attempted to answer all their questions to their satisfaction, and understanding of the explanation has been voiced. With approval we will pursue the recommended treatment. I, Crystal Bauer, have reviewed and agree with the information in the medical record transcribed by Makeda Salamanca MA. 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 [id number] [age] M Status: REG ER ED Report Date & Time: 03/05/23 1221 Hx of Present Illness HPI The patient is a 73 year old white male presents with a chief complaint of coughing up blood as well as a rash on both hands. The patient reports that he started with a productive cough this morning and there is some blood mixing with the mucus. The patient denies any complaints of fever chest pain or shortness of breath. The patient also has developed a rash on the back of his hands over the weekend. Major reports that it itches. The patient recently was started on peritoneal dialysis and he was using a new soap to clean his hands before the dialysis. Subjective Date/Time Of Evaluation Date 03/05/23 Time 1221 * Please Note: All systems reviewed and all are negative except systems noted. Review of Systems Constitutional Denies: Chills, Fever. Eyes Denies: Diplopia, Change in Visual Acuity, Blurred Vision. ENT Denies: Nasal Discharge, Nasal Congestion, Throat Pain. Cardiovascular Denies: Angina, Palpitations. Pulmonary Cough, Hemoptysis, Sputum Production. Denies: Short of Breath. Gastrointestinal Denies: Nausea, Vomiting, Abdominal Pain, Constipation, Diarrhea. Genitourinary Denies: Dysuria, Frequency, Hematuria. Musculoskeletal Denies: Weakness, Pain. Skin Pruritis, Rashes. Objective Focused Exam Performed General Appearance Alert, Oriented X3, Cooperative, Appears Stated Age, No Acute Distress HEENT Atraumatic, PERRLA, EOMI, Mucous Membr. moist/pink Lungs Clear to Auscultation, Normal Air Movement Neck Supple, No JVD Cardiovascular NSR, Normal S1, S2 Abdomen Normal Bowel Sounds, Soft, No Masses, Peritoneal dialysis port in place. Extremities No Cyanosis, No Edema Skin Rash (Excoriations dorsum hands), No Significant Lesion Neurological Normal Speech, Strength at 5/5 X4 Ext, Normal Tone, Sensation Intact, Cranial Nerves 2-12 NL, Intact/non-focal Psych/Mental Status Normal Affect, Normal Mood, Pleasant Reviewed Reviewed Information Medications, Nurse Notes, PMHx Social/Family, Labs, EKG, Troponin T, CXR, Vitals, Allergies Labs/Vitals/Meds/Orders Coagulation Range/Units 03/05 1205 Coagulation PT 9.4 - 12.5 secs 11.3 INR 0.8 - 1.1 1.0 APTT 25.1 - 36.5 secs 20.1 L Hematology Range/Units 03/05 1205 Hematology WBC 4.5 - 10.0 x10(3) 19.5 H RBC 4.80 - 5.50 x10(6) 3.62 L Hgb 14.0 - 17.2 g/dL 11.4 L Hct 42.0 - 51.0 % 36.5 L MCV 80.0 - 94.0 fl 100.8 H MCH 28.8 - 32.2 pg 31.5 MCHC 33.0 - 36.0 g/dL 31.2 L RDW 12.7 - 15.3 % 15.7 H Plt Count 150 - 450 X10(3) 109 L MPV 7.4 - 9.2 fl 10.5 H Neut % (Auto) 45.0 - 73.0 % 83.5 H Lymph % (Auto) 16.0 - 48.0 % 3.9 L Addison % (Auto) 4.3 - 11.2 % 10.7 Eos % (Auto) 0.5 - 4.9 % 0.1 L Baso % (Auto) 0.0 - 1.0 % 0.3 Neut # (Auto) 1.40 - 6.50 x10(3) 16.33 H Lymph # (Auto) 1.00 - 3.50 x10(3) 0.77 L Addison # (Auto) 0.30 - 0.80 x10(3) 2.09 H Eos # (Auto) 0.00 - 0.54 x10(3) 0.01 Baso # (Auto) 0.00 - 0.10 x10(3) 0.05 Total Counted 100 Immature Gran % % 1.5 Immature Gran # 0 - 0 x10(3) 0.29 H Segmented Neutrophils 45 - 73 % 86 H Band Neutrophils 0 - 6 % 2 Lymphocytes (Manual) 16 - 48 % 5 L Monocytes (Manual) 4 - 12 % 7 Platelet Estimate LOW Hypochromasia SLT Macrocytosis SLT Chemistry Range/Units 03/05 03/05 1205 1205 Chemistry Sodium 135 - 145 mmol/L 135 Potassium 3.5 - 5.0 mmol/L 4.9 Chloride 98 - 107 mmol/L 100 Carbon Dioxide 22 - 29 mmol/L 23 Anion Gap 15 - 22 mmol/L 16.9 BUN 8 - 23 mg/dL 59 H Creatinine 0.70 - 1.20 mg/dL 3.77 H Est GFR ( Amer) 19 Est GFR (Non-Af Amer) 16 Glucose 82 - 115 mg/dL 213 H Calcium 8.8 - 10.2 mg/dL 9.3 Total Bilirubin 0.2 - 1.2 mg/dL 0.8 Direct Bilirubin 0.0 - 0.3 mg/dL <0.2 AST 5 - 40 U/L 24 ALT 5 - 41 U/L 6 Alkaline Phosphatase 40 - 130 U/L 64 Troponin T High Sens 6 - 12 ng/L 120.00 cH NT-Pro-B Natriuret Pep pg/mL 01246 Total Protein 6.4 - 8.3 g/dL 6.5 Albumin 3.5 - 5.2 g/dL 3.4 L Globulin 1.5 - 4.5 g/dL 3.1 Albumin/Globulin Ratio 1.1 - 2.5 1.09 L Vital Signs Date Time Temp Pulse Resp B/P B/P Pulse O2 O2 Flow FiO2 Mean Ox Delivery Rate 03/05 1156 99.2 85 18 115/52 95 03/05 1124 99.2 85 18 115/52 95 Orders Procedure Date/time Status NOTHING BY MOUTH 03/05 D Active ED Ready to Discharge Home 03/05 1354 Active TROPONIN T-HIGH SENSITIVITY 03/05 1202 Complete PTT 03/05 1202 Complete PT/INR 03/05 1202 Complete BNP(PRO) 03/05 1202 Complete HEPATIC PANEL 03/05 1202 Complete COMPLETE BLOOD COUNT 03/05 1202 Complete BASIC METABOLIC PANEL 03/05 120 Complete zNotify Physician IF: 03/05 1202 Active IV Start with saline lock.... 03/05 1202 Active ECG and Physiologic monitoring 03/05 120 Active Radiology Impressions All plain films are interpreted by myself unless otherwise noted. All CT and ultrasound studies are interpreted by radiology unless otherwise noted. Chest x-ray: 1. No infiltrate. 2. No effusion. 3. No PTX. 4. No acute abnormality. Problems Problems Current Problems 1. DM2 (diabetes mellitus, type 2) 2. Essential (primary) hypertension 3. BPH (benign prostatic hyperplasia) 4. CKD (chronic kidney disease), stage III 5. Heart failure 6. MACY (obstructive sleep apnea) 7. Former smoker 8. Does not drink alcohol 9. Does not use illicit drugs 10. No significant family history 11. Requires peritoneal dialysis 12. Amputation of right midfoot Recent Orders My Orders (without Meds) Procedure Date/time Status NOTHING BY MOUTH 03/05 D Active ED Ready to Discharge Home 03/05 1354 Active TROPONIN T-HIGH SENSITIVITY 03/05 1202 Complete PTT 03/05 1202 Complete PT/INR 03/05 1202 Complete BNP(PRO) 03/05 1202 Complete HEPATIC PANEL 03/05 1202 Complete COMPLETE BLOOD COUNT 03/05 1202 Complete BASIC METABOLIC PANEL 03/05 1202 Complete zNotify Physician IF: 03/05 1202 Active IV Start with saline lock.... 03/05 1202 Active ECG and Physiologic monitoring 03/05 120 Active Plan Plans Clinical Impression The Differential Diagnosis at this time includes but is not limited to: 1. Pulmonary embolism. The patient has no clinical findings suggestive of a deep venous thrombosis. The patient is not hypoxic or tachycardic. I have low clinical special suspicion for pulmonary embolism and do not leave the patient requires testing with a D-dimer or CT angiogram chest period. 2. Pneumonia. X-ray imaging is negative for findings of pneumonia. 3. Acute bronchitis. The patient's clinical presentation is consistent with a diagnosis of acute bronchitis. The patient will be started on a five day course of azithromycin. 4. Contact dermatitis. The patient s clinical presentation is consistent with a contact dermatitis secondary to the exposure of the new hand soap. The patient and daughter are advised to contact the patient's manager strategy for guidance on replacing the hand soap. The patient is advised to take Benadryl as needed for prutitis. 5. Acute coronary syndrome. The patient has a chronically elevated troponin. The patient is having no symptoms suggestive of acute myocardial ischemia. I do not believe the patient requires further diagnostic evaluation for ACS. Additional history is obtained from: Patient s daughter. Consultations: None. Social determinants of health considered: There are none impacting the patient s healthcare at this time. Impression: 1. Acute bronchitis. 2. Contact dermatitis. 3. Chronic tropinemia. 4. ESRD- on peritoneal dialysis. Critical Care Time: 0 minutes. Disposition Home Additional Comments EKG has been read by myself and interpretated as: Normal sinus rhythm Normal axis and intervals No acute ST/T wave changes. <Electronically signed by VICK ROSE M.D.> 03/05/23 1419 VICK ROSE M.D. << Signature on File>> Reported By: VICK ROSE M.D. Signed By: VICK ROSE M.D. Tests performed at: [address] [id number] documented in this encounter [facility] 02-21-2023 History of Present illness Narrative Images from the original note were not included. Referring Provider: No ref. provider found Date: February 21, 2023 Chief Complaint: Established Patient Follow-Up (9 month follow up, hx of HTN. ) HISTORY OF PRESENT ILLNESS: Pete Conley is a 73 year old male who presents for Established Patient Follow-Up (9 month follow up, hx of HTN. ). ALLERGIES Allergen Reactions Amlodipine Swelling Aspirin Other: See Comments tacchycardia Victoza [Liraglutid* Other: See Comments PAST MEDICAL HISTORY: PAST MEDICAL HISTORY Diagnosis Date Acute and chronic respiratory failure with hypoxia (HCC) BPH (benign prostatic hyperplasia) Community acquired pneumonia Diabetes (HCC) History of cardiovascular stress test 10/10/2021 -Impression: Enlarging dilated LV and the setting of global hypokinesis. Calculated EF 39%. This may represent the sequela of chronic hypertension or other cardiomyopathy. No images evidence of stress-induced myocardial ischemia. History of echocardiogram 03/18/2021 Echocardiogram demonstrates a suboptimal study. EF 50 to 55%. Moderate concentric LVH. Class I diastolic dysfunction. Left atrium is mildly dilated. Mild a S. Mild to moderate MR. Mild TR. Borderline to mild PHT. History of echocardiogram 10/04/2022 EF 45-50%. Left ventricle cavity size is normal. Wall thickness is normal. Systolic funciton is mildly reduced. Hypokinesis of the anterolateral myocardium. Hypokinesis of the inferioir myocardium Grade 2 diastolic dysfunction. Mitral valve the annulus is mildly calcified. The leaflets are moderately thickened. Thickening. Severe regurgitation. Left atrium is mildly dilated. History of echocardiogram 12/22/2022 EF 50% demonstrates concentric left ventricular hypertrophy. Slight hypokinesis of distal septal wall. Mild to moderate MR. Mild TR. Aortic valve is sclerotic, thickened, but the valve area is noted to be normal. History of echocardiography 10/07/2021 -Echocardiogram demonstrates of the difficult study with minimal information obtainable. LV is dilated with an EF at 45 to 50%. Diastolic function is indeterminate. Aortic valve is poorly visualized but no evidence for aortic stenosis by Doppler analysis. Moderate mitral annular calcification without hemodynamically significant MS. Mild MR. History of smoking HTN (hypertension) Obstructive sleep apnea on CPAP PAST SURGICAL HISTORY Procedure Laterality Date PAST SURGICAL HISTORY OF Right TMA TONSILLECTOMY HX FAMILY HISTORY Problem Relation Age of Onset Diabetes Father No Known Problems Sister Arrythmias Brother Diabetes Brother Diabetes Sister Heart disease Sister SOCIAL HISTORY: Tobacco Use: 1 packs/day, for 14 years. Quit 08/20/1979. 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 insulin glargine (LANTUS) 100 unit/mL injection Inject 15 Units subcutaneously daily at bedtime. doxycycline (VIBRA-TABS) 100 mg tablet OXYGEN, HOME THERAPY, Inhale 1.5 L/min as instructed continuous. hydrALAZINE (APRESOLINE) 50 mg tablet Take 1 tablet by mouth twice daily with meals. (Patient taking differently: Take 10 mg by mouth twice daily with meals.) carvedilol (COREG) 6.25 mg tablet Take 1 tablet by mouth twice daily. allopurinol (ZYLOPRIM) 100 mg tablet Take 100 mg by mouth once daily. tamsulosin ER (FLOMAX) 0.4 mg Take 0.4 mg by mouth once daily. pioglitazone (ACTOS) 30 mg tablet Take 30 mg by mouth once daily. finasteride (PROSCAR) 5 mg tablet Take 5 mg by mouth once daily. torsemide (DEMADEX) 20 mg tablet Take 20 mg by mouth twice daily. (Patient not taking: Reported on 02/21/2023) amoxicillin-clavulanic acid (AUGMENTIN) 875-125 mg per tablet (Patient not taking: Reported on 02/21/2023) amLODIPine (NORVASC) 10 mg tablet Take 10 mg by mouth once daily. (Patient not taking: No sig reported) bumetanide (BUMEX) 1 mg tablet Take 1 mg by mouth as needed. (Patient not taking: Reported on 02/21/2023) albuterol HFA (PROVENTIL HFA, VENTOLIN HFA) 90 mcg/actuation inhaler INHALE 1-2 PUFFS INTO LUNGS EVERY FOUR HOURS NEEDED FOR SHORTNESS OF BREATH/WHEEZING (Patient not taking: No sig reported) glipiZIDE (GLUCOTROL) 5 mg tablet Take 10 mg by mouth twice daily. No current facility-administered medications for this visit. I have personally reviewed the patients past medical history including social, family, surgical, diagnostics, and medications. REVIEW OF SYSTEMS: Review of Systems Constitutional: Negative for chills and fatigue. Respiratory: Negative for chest tightness and shortness of breath. Cardiovascular: Negative for chest pain, palpitations and leg swelling. Neurological: Negative for dizziness, syncope, weakness and light-headedness. Hematological: Does not bruise/bleed easily. Psychiatric/Behavioral: Negative for confusion and hallucinations. Vitals: BP 144/70 (BP Site: Left Arm, BP Position: Sitting, BP Cuff Size: Regular Adult) Pulse 85 Ht 180.3 cm (5' 11) Wt 115.7 kg (255 lb 1.3 oz) BMI 35.58 kg/m PHYSICAL EXAMINATION: BP 144/70 (BP Site: Left Arm, BP Position: Sitting, BP Cuff Size: Regular Adult) Pulse 85 Ht 180.3 cm (5' 11) Wt 115.7 kg (255 lb 1.3 oz) BMI 35.58 kg/m Last 3 Encounter BP Readings: Date: BP: 01/02/2023 154/84 11/27/2022 158/80 10/30/2022 172/68 Last 3 Encounter Pulse Readings: Date: Pulse: 01/02/2023 88 11/27/2022 81 10/30/2022 74 Last 3 Encounter Wt Readings: Date: Wt: 11/27/2022 125.6 kg (277 lb) 10/30/2022 122.5 kg (270 lb) 07/03/2022 124.7 kg (275 lb) Physical Exam Vitals reviewed. Constitutional: General: He is not in acute distress. Cardiovascular: Rate and Rhythm: Normal rate and regular rhythm. Pulses: Carotid pulses are 2+ on the right side and 2+ on the left side. Radial pulses are 2+ on the right side and 2+ on the left side. Femoral pulses are 2+ on the right side and 2+ on the left side. Popliteal pulses are 2+ on the right side and 2+ on the left side. Dorsalis pedis pulses are 2+ on the right side and 2+ on the left side. Posterior tibial pulses are 2+ on the right side and 2+ on the left side. Heart sounds: Murmur heard. Systolic murmur is present with a grade of 2/6. Comments: PMI not displaced. 2nd heart sound loud. Pulmonary: Effort: Pulmonary effort is normal. Breath sounds: Normal breath sounds. Abdominal: General: Abdomen is flat. Bowel sounds are normal. Palpations: Abdomen is soft. Tenderness: There is no abdominal tenderness. Musculoskeletal: Right lower leg: No edema. Left lower leg: No edema. Skin: General: Skin is warm. Findings: No rash or wound. Neurological: Mental Status: He is alert and oriented to person, place, and time. Coordination: Coordination is intact. LABS: Glucose (mg/dL) Date Value 12/31/2022 189 Potassium (mmol/L) Date Value 12/31/2022 4.7 Sodium (mmol/L) Date Value 12/31/2022 138 Chloride (mmol/L) Date Value 12/31/2022 97 CO2 (mmol/L) Date Value 12/31/2022 26 Creatinine (mg/dL) Date Value 12/31/2022 3.58 BUN (mg/dL) Date Value 12/31/2022 120 Anion Gap (mmol/L) Date Value 12/31/2022 19.7 Calcium (mg/dL) Date Value 12/31/2022 9.6 Protein, Total (g/dL) Date Value 12/31/2022 7.7 Albumin (g/dL) Date Value 12/31/2022 3.6 Bilirubin, Total (mg/dL) Date Value 12/31/2022 0.4 Alkaline Phosphatase (U/L) Date Value 12/31/2022 96 AST (U/L) Date Value 12/31/2022 24 ALT (U/L) Date Value 12/31/2022 10 Hemoglobin (g/dL) Date Value 12/31/2022 13.6 Hematocrit (%) Date Value 12/31/2022 42.6 WBC (x10(3)) Date Value 12/31/2022 14.0 Cholesterol, Total (mg/dL) Date Value 10/07/2021 223 HDL Cholesterol (mg/dL) Date Value 10/07/2021 35 LDL (mg/dL) Date Value 10/07/2021 169 Triglyceride (mg/dL) Date Value 10/07/2021 96 EKG: DIAGNOSTIC TEST RESULTS: Recent Results (from the past 24 hour(s)) ECG COMPLETE Collection Time: 02/21/23 9:07 AM Result Value Ref Range Ventricular Rate 85 BPM Atrial Rate 85 BPM P-R Interval 194 ms QRS Duration 170 ms QT Interval 442 ms QTC Calculation (Bazett) 525 ms Calculated P Dutton 67 degrees Calculated R Dutton 60 degrees Calculated T Dutton 26 degrees Narrative NAME : PETE CONLEY PID : [id number] : 1950 Gender : Male Race : ORD : [id number] Procedure Date : Feb 21 2023 09:07:37 Edit Date : Feb 21 2023 09:05:59 Diagnosis: NORMAL SINUS RHYTHM COMPLETE RIGHT BUNDLE BRANCH BLOCK POSSIBLE INFERIOR MYOCARDIAL INFARCTION (CITED ON OR BEFORE 21-FEB-2023) ABNORMAL ECG WHEN COMPARED WITH ECG OF 30-OCT-2022 07:47, PREMATURE VENTRICULAR COMPLEXES ARE NO LONGER PRESENT Test Reason : Location : 606 : UPSHE Overread By : , Edited By : , Referred By : TRISTAN ALEXANDER Acquired by : [id number], Impression NORMAL SINUS RHYTHM COMPLETE RIGHT BUNDLE BRANCH BLOCK POSSIBLE INFERIOR MYOCARDIAL INFARCTION (CITED ON OR BEFORE 21-FEB-2023) ABNORMAL ECG WHEN COMPARED WITH ECG OF 30-OCT-2022 07:47, PREMATURE VENTRICULAR COMPLEXES ARE NO LONGER PRESENT The EKG today was abnormal. I was able to look at the prior EKG and compared to today's EKG looking for changes. In the pictorial format we went over the EKG demonstrating the intervals and timing of the intervals. We also described the complexes shape and format. ASSESSMENT/PLAN: 1. Essential hypertension - ICD9: 401.9, ICD10: I10 (primary diagnosis) Patient's blood pressure in the office today was recorded as 144/70. Target systolic BP 140 or less and diastolic BP 90 or less. Continue current medications. - Recommend home blood pressure monitoring, to bring results to next visit - Encouraged sodium restriction, DASH or Mediterranean diet - Recommend regular aerobic exercise - ECG COMPLETE the EKG today was abnormal. I was able to look at the prior EKG and compared to today's EKG looking for changes. In the pictorial format we went over the EKG demonstrating the intervals and timing of the intervals. We also described the complexes shape and format. 2. MACY (obstructive sleep apnea) - ICD9: 327.23, ICD10: G47.33 Patient currently using CPAP every night. 3. History of echocardiogram - ICD9: V15.89, ICD10: Z92.89 Echo was done 12/22/2022 and showed EF 50% demonstrates concentric left ventricular hypertrophy. Slight hypokinesis of distal septal wall. Mild to moderate MR. Mild TR. Aortic valve is sclerotic, thickened, but the valve area is noted to be normal. 4. History of cardiovascular stress test - ICD9: V15.89, ICD10: Z92.89 Stress test was done 10/10/2021 and showed -Impression: Enlarging dilated LV and the setting of global hypokinesis. Calculated EF 39%. This may represent the sequela of chronic hypertension or other cardiomyopathy. No images evidence of stress-induced myocardial ischemia. 5. History of diabetes mellitus - ICD9: V12.29, ICD10: Z86.39 Reviewed increased cardiovascular risk in patients with diabetes including stroke and heart attack, as well as blindness, kidney failure, and neuropathy. Recommend yearly eye exams, as well as routine labs to monitor kidney function. 6. Former smoker - ICD9: V15.82, ICD10: Z87.891 Patient is a former smoker. Patient quit smoking in 1979. -Nocturnal Pulse Ox study was ordered due to checking SpO2 levels during the night. This will evaluate the ability of the CPAP machine. He is wanting to see if he needs oxygen. He is o hoping to get rid of the oxygen tanks. I, Nemo Eric MA , scribing for Dr. Tristan Alexander, was present in the room during the examination Follow up in: [address] Alexander Prior to entering the room, I reviewed the last progress note including the diagnosis and plan of action. When available, I then reviewed the last heart catheterization, stress test, echocardiogram and EKG. I proceeded to review the medial therapy and any side effects the patient may have had in the past. I was able to look at the last several EKGs. A new EKG was performed today and an interetation was performed. I reviewed its interpretation with the family and compared it to the previous EKGs that we have in the medical records. Changes were described to the patient. In a pictorial format; I described the WI and QRS intervals. This was to show the effects of antiarrhythmic therapy on the electrical system. I was able to look at the past several EKG's. A new EKG was performed today and interpretation was noted. I reviewed this interpretation with the patient, and the family when available, and compared it to the previous EKG's that we have in the medical record. Since my office visit was carried out with a scribe, while in the exam room I was able to devote one hundred percent of my time in [id number] conversation with the patient. I answered all the questions and explained the diagnosis of hypoxia chronic kidney disease hypertension. Greater that 51% of my time was spent with dnog-la-gaeg conversation with the patient. I have discussed the recommended treatment, alternative therapies and other options in detail. I've discussed the best benefit and side effects of these recommended treatments. I've attempted to answer all the questions to the patient's satisfaction and understanding. With approval, we would recommend an pursue the current therapy such as nocturnal pulse ox. After leaving the exam room, I went back into the patient's chart and coordinated care with my nurse ordering the proper testing and medicinal changes. Letter was performed with voice recognition algorithms and sent to the referring team. The chart was completed. Including the pre-exam, exam and post-exam, the total time spent in the patient's management was greater than 15 minutes I, Dr. Tristan Alexander, have reviewed and agree with the information in the medical record. Tristan Alexander DO documented in this encounter [facility] 01-23-2023 Hospital Discharge instructions Patient Education 01/23/2023 11:29:27 1-[facility] Discharge Instructions Template (05/2018) [facility] SAME DAY SURGERY DISCHARGE INSTRUCTIONS PLEASE FOLLOW THE INSTRUCTIONS BELOW MARKED WITH AN X: _x__ Regular Diet: Start with clear liquids, then soup and crackers and gradually add other foods. _x__ Drink extra fluids. ___ Special Diet Instructions: ___ ACTIVITY: _x__ Avoid stress to suture line. Since you have had an anesthetic, it would be advisable not to drive, drink alcohol, or make major decisions over the next 24 hours. You may require more rest tonight and tomorrow. ___ May resume regular activity as tolerated. ___ Restrict activity as follows: ___ ___ Walk Only ___ ___ Do not go up and down stairs. ___ Do not ride in car until ___ _x_ Do not drive car for 1 week ___ Do not have sexual intercourse. _x__ No heavy lifting, pushing or straining less than 10 pounds _x__ Other: _Follow all of Dr. Jones's instructions, apply ice as needed, __ BATHING/SHOWERING: _x__ Sponge bathe until office visit. ___ Sitting in tub of warm water may relieve discomfort. ___ May tub bathe ___ May shower ___ On day after surgery sit in tub of warm water to soak off dressing. DRESSING: _x__ Keep operative area dry and clean _until seen in dialysis__ _x__ Check the operative area for signs of bleeding. Apply pressure to the bleeding site if necessary and call your physician. ___ Change dressing as necessary using sterile dressing material or bandaid. ___ Reinforce dressing as necessary. ___ Change and care for wound as follows: ___ ___ Wear bra for ___ days following breast surgery for comfort. ___ Change drip pad as needed. ___ Wear scrotal support for comfort. WATCH FOR SIGNS OF INFECTION: (Usually appears 36-48 hours after surgery) Increased temperature (101 degrees Fahrenheit or higher) Redness or swelling Increased pain Foul odor or drainage. If you have any questions, please call your doctor at the number listed on your follow up instructions. Follow all instructions given to you by your physician. Please complete and return the survey you will be receiving in the mail to help us better serve our patients. Form: [id number]) R: 11/2601/23/2023 11:26:41 Peritoneal Dialysis Information Peritoneal Dialysis Information Peritoneal dialysis is a procedure that filters your blood. You may have this procedure if your kidneys are not working well. You can perform peritoneal dialysis yourself, or a machine can do it for you at night when you sleep. Tell a health care provider about: Any allergies you have. All medicines you are taking, including vitamins, herbs, eye drops, creams, and tqdf-ddy-afgqlwh medicines. Any problems you or family members have had with anesthetic medicines. Any blood disorders you have. Any surgeries you have. Any medical conditions you have. Whether you are or may be . What are the risks? Generally, peritoneal dialysis is safe. However, problems may occur, including: Infection in the lining of your abdomen (peritoneum). This is the most common problem. Infection in the area where the catheter was inserted. Discomfort in the area where the catheter was inserted. Weakened abdominal muscles. This may lead to a hernia, which can cause problems if left untreated. What happens before treatment? It is important to safely prepare for treatment and take steps to prevent infection. Your health care provider will teach you how to prepare for a dialysis session. Preparation may involve: Closing doors and windows in the room where dialysis will be performed. Making sure to wash your hands before and during treatment. Anyone that touches you or the equipment should also wash his or her hands often. Putting on a mask. Making sure that tubing and equipment are germ-free (sterile). Checking the bag of fluid (dialysate) you will use during the session, to make sure it is sealed and free of germs (uncontaminated). What happens during treatment? At the start of a session, your abdomen is filled with dialysate. The dialysate pulls waste, salt, and extra water through the peritoneum. At the end of the session, the dialysate, plus all the waste it pulled from your blood, is drained from your body. There are two kinds of peritoneal dialysis: Continuous cycling peritoneal dialysis (CCPD). In this type, a machine called a cycler fills and drains your abdomen (performs exchanges) for you while you sleep. Continuous ambulatory peritoneal dialysis (CAPD). In this type, you perform exchanges for yourself up to 5 times a day. Each exchange takes about 30 40 minutes. The amount of time the dialysate stays in your body (the dwell) usually varies from 1.5 3 hours. You may go about your day normally between exchanges. Some people need to have a combination of CAPD and CCPD. What can I expect after treatment? You may need to have lab work or other tests done to check on how well the dialysis is working. Change the bandage (dressing) around your permanent catheter as directed by your health care provider. Keep the dressing clean and dry. Weigh yourself after the treatment and write down your weight. Follow these instructions at home: Eating and drinking Follow your health care provider's instructions about diet. You should follow a diet plan that includes: ?Nutritional counseling with a dietitian. ?Vitamin supplements. ?High-quality proteins, such as meat, poultry, fish, and eggs. Most people on peritoneal dialysis need to eat a high-protein diet because protein is lost during the dialysis exchange. Preventing constipation Avoid becoming constipated. Constipation prevents dialysate from draining well. To prevent constipation: ?Eat foods that are high in fiber, such as fresh fruits and vegetables, whole grains, and beans. ?Limit foods that are high in fat and processed sugars, such as fried and sweet foods. ?Be active. ?Go to the restroom when you feel that you need to. Do not hold it in. ?Take ogxm-pvy-ejsvehj or prescription medicines such as laxatives only if your health care provider recommends them. General instructions Keep a strict schedule. Dialysis must be done every day. Do not skip a day or an exchange. Make time for each exchange. Always keep the dialysate bags and other supplies in a cool, clean, and dry place. Take qgng-fes-fimnchf and prescription medicines only as told by your health care provider. Weigh yourself every day. Sudden weight gain may be a sign of a problem. Keep all follow-up visits as told by your health care provider. This is important. Where to find more information You can find more information about peritoneal dialysis treatment from: National [employer] and [employer] and [employer]: www.niddk.nih.gov/health-informat ion/kidney-disease/kidney-failure /peritoneal-dialysis National Kid[employer] Foundation: www.kidney.org/atoz/content/perit silverio Contact a health care provider if: You have a fever or chills. You feel nauseous or you vomit. You have diarrhea. You have any problems with an exchange. Your blood pressure increases. You suddenly gain weight or feel short of breath. The catheter seems loose or feels like it is coming out. The fluid that has drained from your abdomen is pinkish or reddish. Women having their menstrual period do not need to seek medical care if the fluid is only a little pink or red. There are white strands in the dialysate that are large enough to get stuck in your tubing or catheter. Get help right away if: The area around the catheter swells or becomes red, tender, or painful. There is pus coming from the catheter area. The fluid that has drained from your abdomen is cloudy. You feel more abdominal pain or discomfort. Summary Peritoneal dialysis is a procedure that filters your blood. You may have this procedure if your kidneys are not working well. CAPD and CCPD are the two kinds of peritoneal dialysis. Your health care provider will help you decide which kind is best for you. The main risks of peritoneal dialysis are infection and weakened abdominal muscles, which may lead to a hernia. This information is not intended to replace advice given to you by your health care provider. Make sure you discuss any questions you have with your health care provider. Document Released: 06/03/2010 Document Revised: 11/27/2019 Document Reviewed: 11/15/2017 [employer] Patient Education 2020 [employer]. 01/23/2023 11:26:39 Peritoneal Dialysis Catheter Placement Peritoneal Dialysis Catheter Placement Peritoneal dialysis catheter placement is a surgery to insert a thin, flexible tube (catheter) into the abdomen. The catheter will be used for peritoneal dialysis, which is a process for filtering the blood. The catheter will be small, soft, and easy to conceal. The catheter placement is usually done at least 2 weeks before peritoneal dialysis is started. During dialysis, wastes, salt, and extra water are removed from the blood. In peritoneal dialysis, these tasks are performed by transferring a fluid (dialysate) to and from the abdomen during each session. The fluid goes through the catheter to enter the abdomen at the start of each dialysis session, and it drains out of the body through the catheter at the end of each session. This procedure will be done using one of the following techniques: Open technique. This is when the surgery is performed through one incision. Laparoscopic technique. This is when smaller incisions are made and a tube with a light and camera on the end (laparoscope) is inserted through one of the incisions to help perform the surgery. The camera sends images to a video screen in the operating room. This lets the surgeon see inside the abdomen during the procedure. Tell a health care provider about: Any allergies you have. All medicines you are taking, including vitamins, herbs, eye drops, creams, and hrog-til-haxecvo medicines. Any problems you or family members have had with anesthetic medicines. Any blood disorders you have. Any surgeries you have had. Any history of smoking. Any medical conditions you have. Whether you are or may be . What are the risks? Generally, this is a safe procedure. However, problems may occur, including: Infection. Too much bleeding. A collection of blood near the incision (hematoma). Damage to blood vessels, tissues, or organs in the abdomen area. Allergic reactions to medicines. Pain or cramping. Slow healing. Catheter problems after the surgery, such as: ?The catheter becoming blocked. ?The catheter moving out of place. ?The catheter poking into or wrapping around intestines. ?Fluid leaking around the catheter. Scarring. Skin damage. What happens before the procedure? Medicines Ask your health care provider about: Changing or stopping your regular medicines. This is especially important if you take diabetes medicines or blood thinners. Taking medicines such as aspirin and ibuprofen. These medicines can thin your blood. Do not take these medicines before your procedure if your health care provider tells you not to. Staying hydrated Follow instructions from your health care provider about hydration, which may include: Up to 2 hours before the procedure you may continue to drink clear liquids, such as water, clear fruit juice, black coffee, and plain tea. Eating and drinking restrictions Follow instructions from your health care provider about eating and drinking, which may include: 8 hours before the procedure stop eating heavy meals or foods such as meat, fried foods, or fatty foods. 6 hours before the procedure stop eating light meals or foods, such as toast or cereal. 6 hours before the procedure stop drinking milk or drinks that contain milk. 2 hours before the procedure stop drinking clear liquids. General instructions Ask your health care provider how your catheter site will be marked or identified. Your health care provider will discuss the best site for the catheter to be placed. The site will be chosen to help prevent the catheter from being flattened or damaged, and to make it as comfortable as possible for you. You may be asked to shower with a germ-killing soap. You may have a CT scan of your abdomen. You may have a blood sample taken. Plan to have someone take you home from the hospital or clinic. What happens during the procedure? To lower your risk of infection: ?Your health care team will wash or sanitize their hands. ?Your skin will be washed with soap. ?Hair may be removed from the surgical area. An IV will be inserted into one of your veins. You may be given antibiotic medicine through your IV. You will be given a medicine to make you fall asleep (general anesthetic). If you are having an open surgery, one larger incision will be made in the abdomen. If you are having laparoscopic surgery, a laparoscope and instruments will be put through small incisions in the abdomen. The catheter will be put in place. A short tunnel will be made under the skin to a location where the catheter exits the abdomen. Stitches (sutures) will be placed around the catheter to hold it in place. Your incisions will be closed with sutures or lori. The procedure may vary among health care providers and hospitals. What happens after the procedure? Your blood pressure, heart rate, breathing rate, and blood oxygen level will be monitored until the medicines you were given have worn off. You may have some pain. You will be given pain medicine as needed. You will be given instructions about how to care for your catheter and how it is used for the dialysis process. Summary Peritoneal dialysis catheter placement is a surgery to insert a thin, flexible tube (catheter) in your abdomen. This surgery must be done before you begin peritoneal dialysis. Before the procedure, your health care provider will discuss the best site for the catheter to be placed. The site will be chosen to help prevent the catheter from being flattened or damaged, and to make it as comfortable as possible for you. After the procedure, you will be given instructions about how to care for your catheter and how it is used for the dialysis process. This information is not intended to replace advice given to you by your health care provider. Make sure you discuss any questions you have with your health care provider. Document Released: 07/25/2010 Document Revised: 11/27/2019 Document Reviewed: 09/14/2017 [employer] Patient Education 2020 [employer]. 01/23/2023 11:26:37 Peritoneal Dialysis Catheter Placement, Care After Peritoneal Dialysis Catheter Placement, Care After This sheet gives you information about how to care for yourself after your procedure. Your health care provider may also give you more specific instructions. If you have problems or questions, contact your health care provider. What can I expect after the procedure? After the procedure, it is common to have some pain or discomfort in your abdomen, your incision area, or both. You may need to wait 2 weeks after your procedure before you can start peritoneal dialysis treatment. If you need dialysis before that time, your health care provider may begin peritoneal dialysis treatment early or offer kidney dialysis treatments (hemodialysis) until you heal. Follow these instructions at home: Incision care Follow instructions from your health care provider about how to take care of your incision(s). Make sure you: ?Change your dressing only as told by your health care provider. Your health care provider may tell you to not touch or change your dressing. ?Wash your hands with soap and water before you change your bandage (dressing). If soap and water are not available, use hand business practices officer. ?Leave stitches (sutures), skin glue, or adhesive strips in place. These skin closures may need to stay in place for two weeks or longer. If adhesive strip edges start to loosen and curl up, you may trim the loose edges. Do not remove adhesive strips completely unless your health care provider tells you to do that. Check your incision area(s) every day for signs of infection. (If you were instructed to not touch or change your dressing, look at your dressing for signs of infection.) Check for: ?Redness, swelling, or more pain. ?Fluid or blood. ?Warmth. ?Pus or a bad smell. Medicines Take qqjc-jii-fgyvyru and prescription medicines only as told by your health care provider. If you were prescribed an antibiotic medicine, take it as told by your health care provider. Do not stop using the antibiotic even if your condition improves. Driving Do not drive or ride in a car until your health care provider approves. Your seat belt could move the catheter out of position or cause irritation by rubbing on your incision. Do not drive or use heavy machinery while taking prescription pain medicine. Activity Rest and limit your activity. Return to your normal activities as told by your health care provider. Ask your health care provider what activities are safe for you. Do not lift anything that is heavier than 10 lb (4.5 kg), or the limit that you are told, until your health care provider says that it is safe. Preventing constipation To prevent or treat constipation, your health care provider may recommend that you: ?Take mixq-doq-keiurkw or prescription medicines. ?Eat foods that are high in fiber, such as fresh fruits and vegetables, whole grains, and beans. ?Limit foods that are high in fat and processed sugars, such as fried and sweet foods. General instructions Do not use any products that contain nicotine or tobacco, such as cigarettes and e-cigarettes. If you need help quitting, ask your health care provider. Follow instructions from your health care provider about eating or drinking restrictions. Do not take baths, swim, or use a hot tub until your health care provider approves. Ask your health care provider if you may take showers. You may only be allowed to take sponge baths. Wear loose-fitting clothing that keeps the catheter covered so that it cannot get caught on something. Keep your catheter clean and dry. Keep all follow-up visits as told by your health care provider. This is important. Contact a health care provider if: You have a fever. You have redness, swelling, or more pain around an incision. You have fluid or blood coming from an incision. An incision feels warm to the touch. You have pus or a bad smell coming from an incision. You cannot eat or drink without vomiting. Get help right away if: You have problems breathing. You are confused. You have trouble speaking. You have severe pain in your abdomen that does not get better with treatment. You have bright red blood in your stool (feces), or your stool is dark black and looks like tar. These symptoms may represent a serious problem that is an emergency. Do not wait to see if the symptoms will go away. Get medical help right away. Call your local emergency services (911 in the [place] Do not drive yourself to the hospital. Summary After the procedure, it is common to have some pain or discomfort in your abdomen, your incision, or both. You may have to wait 2 weeks after your procedure before you can start peritoneal dialysis treatment. Check your incision area(s) every day for signs of infection. Get medical help right away if you have severe pain in your abdomen that does not get better with treatment. This information is not intended to replace advice given to you by your health care provider. Make sure you discuss any questions you have with your health care provider. Document Released: 2018 Document Revised: 11/27/2019 Document Reviewed: 2018 [employer] Patient Education 2019 [employer] Follow Up Care 12/28/2022 11:30:28 With:NABIL JONES JR, MD, Surgery Address: [address] [place] [address]- [phone] When: Unknown Comments:Follow-up with Dr. Jones as scheduled, if you do not have a follow-up appointment please call the office With:NABIL JONES JR, MD, Surgery Address: [facility] [address] [place] [address]- When: Unknown Comments:Call office, , to make appointment. See Dr. Jones in 2 weeks.. [facility] 01-23-2023 Anesthesiology Consult note Patient: PETE CONLEY Age: 72 years Sex: Male : 1950 Associated Diagnoses: None Author: ASAD PRO DO Assessment Postanesthesia assessment Vitals. Mental status: at preoperative baseline. Respiratory function: respirations are non-labored, stable. Respiratory support: none. CV function: stable. Cardiovascular support: none. Pain: Post op control satisfactory. Nausea status: satisfactory. Postoperative hydration status: within normal limits. Notes: pt sufficentyl recovered from anesthesia to participate in the evaluation. No follow up care needed. No complications post-anesthesia. Digitally Signed by ASAD PRO DO on 01/23/2023 11:42 AM [facility] 01-23-2023 Summary of episode note Discharge Instructions Thank you for allowing [facility] to assist you with your healthcare needs. The following is important discharge information regarding your hospital visit. Your Care Team MOISES PRATER MD Your Diagnosis Acute post-operative pain What to do next Follow Up Appointments Follow Up with NABIL JONES JR, MD, Surgery When Why: Follow-up with Dr. Jones as scheduled, if you do not have a follow-up appointment please call the office Where: [address] [place] [address]- [phone] Follow Up with NABIL JONES JR, MD, Surgery When Why: Call office, , to make appointment. See Dr. Jones in 2 weeks.. Where: [facility] [address] [facility] [address] [place] [address]- The Following Activity and Diet Have Been Ordered for You Discharge Activity - Ordered -- Lifting Restricted less than 10 pounds, 01/23/23 11:22:00 EDT Discharge Driving Restrictions - Ordered -- No driving for 1 week, 01/23/23 11:22:00 EDT Discharge Diet - Ordered -- Type of Diet: Regular Diet, No changes were made to your diet during your hospital stay. Please resume your pre hospitalization diet on discharge., 01/23/23 11:22:00 EDT The Following Equipment Has Been Ordered for You Discharge Home Equipment Discharge Wound Care - Ordered -- Dressing Type: Dry sterile drsg, Do not remove dressing until removed in dialysis center. Sponge bathe only at this time., 01/23/23 11:22:00 EDT The Following Treatments Have Been Ordered for You Discharge Labs No qualifying data available. Discharge Radiology No qualifying data available. Other Therapies No qualifying data available. Post Acute Orders No qualifying data available. Someone Will Contact You Regarding These Home Health Referrals No home referrals have been ordered for you. No one will call you. Allergies Clams amLODIPine (Decreased renal function) aspirin (Heart rate fast) metFORMIN (Decreased kidney function) Medications Please ask your primary doctor or pharmacist before taking any other medication not listed, including over the counter drugs, herbal medications, vitamins and or supplements as they may interact with your home medications. What How Much When Why Instructions Last Dose New acetaminophen-hydrocodone ([place] 325- 5 mg oral tablet) 1 tab(s) by mouth Every 6 hours as needed for for pain Acute post-operative pain Duration: 3 Days Pickup at [facility] Unchanged allopurinol (allopurinol 300 mg oral tablet) 1 tab(s) by mouth Once a day after a meal Unchanged amoxicillin-clavulanate (amoxicillin-clavulanate 875 mg-125 mg oral tablet) 1 tab(s) by mouth Every 12 hours Duration: 10 Days Unchanged calcitriol (calcitriol 0.5 mcg oral capsule) 1 cap by mouth Every day Unchanged carvedilol (carvedilol 6.25 mg oral tablet) 1 tab(s) by mouth Two (2) times a day Unchanged cholecalciferol (Vitamin D3 125 mcg (5000 intl units) oral tablet) 1 tab(s) by mouth Once a day Unchanged doxycycline (doxycycline hyclate 100 mg oral tablet) 1 tab(s) by mouth Two (2) times a day Duration: 10 Days Unchanged finasteride (finasteride 5 mg oral tablet) 1 tab(s) by mouth Once a day Unchanged glipiZIDE (glipiZIDE 10 mg oral tablet) 1 tab(s) by mouth Two (2) times daily before meals Unchanged hydrALAZINE (hydrALAZINE 10 mg oral tablet) 1 tab(s) by mouth Two (2) times a day Unchanged mupirocin topical (mupirocin 2% topical ointment) 1 application Topical Two (2) times a day Bilateral intranasal application twice daily x 5 days pre-surgery. Unchanged tamsulosin (tamsulosin 0.4 mg oral capsule) 1 cap by mouth Once a day Unchanged torsemide (torsemide 20 mg oral tablet) 1 tab(s) by mouth Once a day Pharmacy Information [facility]: [address] [place] [address] [phone] Please take this list to your next doctor s visit. Bring all medications you take, including over the counter medications, herbals and other supplements with you to your doctor s visit. Patients and families are reminded to discard old lists and to update any records with all medication providers or retail pharmacies. Education Materials [facility] SAME DAY SURGERY DISCHARGE INSTRUCTIONS PLEASE FOLLOW THE INSTRUCTIONS BELOW MARKED WITH AN X: _x__ Regular Diet: Start with clear liquids, then soup and crackers and gradually add other foods. _x__ Drink extra fluids. ___ Special Diet Instructions: ___ ACTIVITY: _x__ Avoid stress to suture line. Since you have had an anesthetic, it would be advisable not to drive, drink alcohol, or make major decisions over the next 24 hours. You may require more rest tonight and tomorrow. ___ May resume regular activity as tolerated. ___ Restrict activity as follows: ___ ___ Walk Only ___ ___ Do not go up and down stairs. ___ Do not ride in car until ___ _x_ Do not drive car for 1 week ___ Do not have sexual intercourse. _x__ No heavy lifting, pushing or straining less than 10 pounds _x__ Other: _Follow all of Dr. Jones's instructions, apply ice as needed, __ BATHING/SHOWERING: _x__ Sponge bathe until office visit. ___ Sitting in tub of warm water may relieve discomfort. ___ May tub bathe ___ May shower ___ On day after surgery sit in tub of warm water to soak off dressing. DRESSING: _x__ Keep operative area dry and clean _until seen in dialysis__ _x__ Check the operative area for signs of bleeding. Apply pressure to the bleeding site if necessary and call your physician. ___ Change dressing as necessary using sterile dressing material or bandaid. ___ Reinforce dressing as necessary. ___ Change and care for wound as follows: ___ ___ Wear bra for ___ days following breast surgery for comfort. ___ Change drip pad as needed. ___ Wear scrotal support for comfort. WATCH FOR SIGNS OF INFECTION: (Usually appears 36-48 hours after surgery) Increased temperature (101 degrees Fahrenheit or higher) Redness or swelling Increased pain Foul odor or drainage. If you have any questions, please call your doctor at the number listed on your follow up instructions. Follow all instructions given to you by your physician. Please complete and return the survey you will be receiving in the mail to help us better serve our patients. Form: 1522 ([id number]) R: 11/26 Peritoneal Dialysis Information Peritoneal dialysis is a procedure that filters your blood. You may have this procedure if your kidneys are not working well. You can perform peritoneal dialysis yourself, or a machine can do it for you at night when you sleep. Tell a health care provider about: Any allergies you have. All medicines you are taking, including vitamins, herbs, eye drops, creams, and kits-mau-rbqbkkf medicines. Any problems you or family members have had with anesthetic medicines. Any blood disorders you have. Any surgeries you have. Any medical conditions you have. Whether you are or may be . What are the risks? Generally, peritoneal dialysis is safe. However, problems may occur, including: Infection in the lining of your abdomen (peritoneum). This is the most common problem. Infection in the area where the catheter was inserted. Discomfort in the area where the catheter was inserted. Weakened abdominal muscles. This may lead to a hernia, which can cause problems if left untreated. What happens before treatment? It is important to safely prepare for treatment and take steps to prevent infection. Your health care provider will teach you how to prepare for a dialysis session. Preparation may involve: Closing doors and windows in the room where dialysis will be performed. Making sure to wash your hands before and during treatment. Anyone that touches you or the equipment should also wash his or her hands often. Putting on a mask. Making sure that tubing and equipment are germ-free (sterile). Checking the bag of fluid (dialysate) you will use during the session, to make sure it is sealed and free of germs (uncontaminated). What happens during treatment? At the start of a session, your abdomen is filled with dialysate. The dialysate pulls waste, salt, and extra water through the peritoneum. At the end of the session, the dialysate, plus all the waste it pulled from your blood, is drained from your body. There are two kinds of peritoneal dialysis: Continuous cycling peritoneal dialysis (CCPD). In this type, a machine called a cycler fills and drains your abdomen (performs exchanges) for you while you sleep. Continuous ambulatory peritoneal dialysis (CAPD). In this type, you perform exchanges for yourself up to 5 times a day. Each exchange takes about 30 40 minutes. The amount of time the dialysate stays in your body (the dwell) usually varies from 1.5 3 hours. You may go about your day normally between exchanges. Some people need to have a combination of CAPD and CCPD. What can I expect after treatment? You may need to have lab work or other tests done to check on how well the dialysis is working. Change the bandage (dressing) around your permanent catheter as directed by your health care provider. Keep the dressing clean and dry. Weigh yourself after the treatment and write down your weight. Follow these instructions at home: Eating and drinking Follow your health care provider's instructions about diet. You should follow a diet plan that includes: ? Nutritional counseling with a dietitian. ? Vitamin supplements. ? High-quality proteins, such as meat, poultry, fish, and eggs. Most people on peritoneal dialysis need to eat a high-protein diet because protein is lost during the dialysis exchange. Preventing constipation Avoid becoming constipated. Constipation prevents dialysate from draining well. To prevent constipation: ? Eat foods that are high in fiber, such as fresh fruits and vegetables, whole grains, and beans. ? Limit foods that are high in fat and processed sugars, such as fried and sweet foods. ? Be active. ? Go to the restroom when you feel that you need to. Do not hold it in. ? Take tvwj-vct-baaaeuo or prescription medicines such as laxatives only if your health care provider recommends them. General instructions Keep a strict schedule. Dialysis must be done every day. Do not skip a day or an exchange. Make time for each exchange. Always keep the dialysate bags and other supplies in a cool, clean, and dry place. Take irkw-xsb-awjrdff and prescription medicines only as told by your health care provider. Weigh yourself every day. Sudden weight gain may be a sign of a problem. Keep all follow-up visits as told by your health care provider. This is important. Where to find more information You can find more information about peritoneal dialysis treatment from: National Instititute of Diabetes and Digestive and Kidney Diseases: www.niddk.nih.gov/health-informat ion/kidney-disease/kidney-failure /peritoneal-dialysis National Kidney Foundation: www.kidney.org/atoz/content/perit silverio Contact a health care provider if: You have a fever or chills. You feel nauseous or you vomit. You have diarrhea. You have any problems with an exchange. Your blood pressure increases. You suddenly gain weight or feel short of breath. The catheter seems loose or feels like it is coming out. The fluid that has drained from your abdomen is pinkish or reddish. Women having their menstrual period do not need to seek medical care if the fluid is only a little pink or red. There are white strands in the dialysate that are large enough to get stuck in your tubing or catheter. Get help right away if: The area around the catheter swells or becomes red, tender, or painful. There is pus coming from the catheter area. The fluid that has drained from your abdomen is cloudy. You feel more abdominal pain or discomfort. Summary Peritoneal dialysis is a procedure that filters your blood. You may have this procedure if your kidneys are not working well. CAPD and CCPD are the two kinds of peritoneal dialysis. Your health care provider will help you decide which kind is best for you. The main risks of peritoneal dialysis are infection and weakened abdominal muscles, which may lead to a hernia. This information is not intended to replace advice given to you by your health care provider. Make sure you discuss any questions you have with your health care provider. Document Released: 06/03/2010 Document Revised: 11/27/2019 Document Reviewed: 11/15/2017 Elsevier Patient Education 2020 [employer] Peritoneal Dialysis Catheter Placement Peritoneal dialysis catheter placement is a surgery to insert a thin, flexible tube (catheter) into the abdomen. The catheter will be used for peritoneal dialysis, which is a process for filtering the blood. The catheter will be small, soft, and easy to conceal. The catheter placement is usually done at least 2 weeks before peritoneal dialysis is started. During dialysis, wastes, salt, and extra water are removed from the blood. In peritoneal dialysis, these tasks are performed by transferring a fluid (dialysate) to and from the abdomen during each session. The fluid goes through the catheter to enter the abdomen at the start of each dialysis session, and it drains out of the body through the catheter at the end of each session. This procedure will be done using one of the following techniques: Open technique. This is when the surgery is performed through one incision. Laparoscopic technique. This is when smaller incisions are made and a tube with a light and camera on the end (laparoscope) is inserted through one of the incisions to help perform the surgery. The camera sends images to a video screen in the operating room. This lets the surgeon see inside the abdomen during the procedure. Tell a health care provider about: Any allergies you have. All medicines you are taking, including vitamins, herbs, eye drops, creams, and payx-qqw-eshcdwi medicines. Any problems you or family members have had with anesthetic medicines. Any blood disorders you have. Any surgeries you have had. Any history of smoking. Any medical conditions you have. Whether you are or may be . What are the risks? Generally, this is a safe procedure. However, problems may occur, including: Infection. Too much bleeding. A collection of blood near the incision (hematoma). Damage to blood vessels, tissues, or organs in the abdomen area. Allergic reactions to medicines. Pain or cramping. Slow healing. Catheter problems after the surgery, such as: ? The catheter becoming blocked. ? The catheter moving out of place. ? The catheter poking into or wrapping around intestines. ? Fluid leaking around the catheter. Scarring. Skin damage. What happens before the procedure? Medicines Ask your health care provider about: Changing or stopping your regular medicines. This is especially important if you take diabetes medicines or blood thinners. Taking medicines such as aspirin and ibuprofen. These medicines can thin your blood. Do not take these medicines before your procedure if your health care provider tells you not to. Staying hydrated Follow instructions from your health care provider about hydration, which may include: Up to 2 hours before the procedure you may continue to drink clear liquids, such as water, clear fruit juice, black coffee, and plain tea. Eating and drinking restrictions Follow instructions from your health care provider about eating and drinking, which may include: 8 hours before the procedure stop eating heavy meals or foods such as meat, fried foods, or fatty foods. 6 hours before the procedure stop eating light meals or foods, such as toast or cereal. 6 hours before the procedure stop drinking milk or drinks that contain milk. 2 hours before the procedure stop drinking clear liquids. General instructions Ask your health care provider how your catheter site will be marked or identified. Your health care provider will discuss the best site for the catheter to be placed. The site will be chosen to help prevent the catheter from being flattened or damaged, and to make it as comfortable as possible for you. You may be asked to shower with a germ-killing soap. You may have a CT scan of your abdomen. You may have a blood sample taken. Plan to have someone take you home from the hospital or clinic. What happens during the procedure? To lower your risk of infection: ? Your health care team will wash or sanitize their hands. ? Your skin will be washed with soap. ? Hair may be removed from the surgical area. An IV will be inserted into one of your veins. You may be given antibiotic medicine through your IV. You will be given a medicine to make you fall asleep (general anesthetic). If you are having an open surgery, one larger incision will be made in the abdomen. If you are having laparoscopic surgery, a laparoscope and instruments will be put through small incisions in the abdomen. The catheter will be put in place. A short tunnel will be made under the skin to a location where the catheter exits the abdomen. Stitches (sutures) will be placed around the catheter to hold it in place. Your incisions will be closed with sutures or lori. The procedure may vary among health care providers and hospitals. What happens after the procedure? Your blood pressure, heart rate, breathing rate, and blood oxygen level will be monitored until the medicines you were given have worn off. You may have some pain. You will be given pain medicine as needed. You will be given instructions about how to care for your catheter and how it is used for the dialysis process. Summary Peritoneal dialysis catheter placement is a surgery to insert a thin, flexible tube (catheter) in your abdomen. This surgery must be done before you begin peritoneal dialysis. Before the procedure, your health care provider will discuss the best site for the catheter to be placed. The site will be chosen to help prevent the catheter from being flattened or damaged, and to make it as comfortable as possible for you. After the procedure, you will be given instructions about how to care for your catheter and how it is used for the dialysis process. This information is not intended to replace advice given to you by your health care provider. Make sure you discuss any questions you have with your health care provider. Document Released: 07/25/2010 Document Revised: 11/27/2019 Document Reviewed: 09/14/2017 [employer] Patient Education 2020 [employer] Peritoneal Dialysis Catheter Placement, Care After This sheet gives you information about how to care for yourself after your procedure. Your health care provider may also give you more specific instructions. If you have problems or questions, contact your health care provider. What can I expect after the procedure? After the procedure, it is common to have some pain or discomfort in your abdomen, your incision area, or both. You may need to wait 2 weeks after your procedure before you can start peritoneal dialysis treatment. If you need dialysis before that time, your health care provider may begin peritoneal dialysis treatment early or offer kidney dialysis treatments (hemodialysis) until you heal. Follow these instructions at home: Incision care Follow instructions from your health care provider about how to take care of your incision(s). Make sure you: ? Change your dressing only as told by your health care provider. Your health care provider may tell you to not touch or change your dressing. ? Wash your hands with soap and water before you change your bandage (dressing). If soap and water are not available, use hand business practices officer. ? Leave stitches (sutures), skin glue, or adhesive strips in place. These skin closures may need to stay in place for two weeks or longer. If adhesive strip edges start to loosen and curl up, you may trim the loose edges. Do not remove adhesive strips completely unless your health care provider tells you to do that. Check your incision area(s) every day for signs of infection. (If you were instructed to not touch or change your dressing, look at your dressing for signs of infection.) Check for: ? Redness, swelling, or more pain. ? Fluid or blood. ? Warmth. ? Pus or a bad smell. Medicines Take qyqy-fhz-glagygp and prescription medicines only as told by your health care provider. If you were prescribed an antibiotic medicine, take it as told by your health care provider. Do not stop using the antibiotic even if your condition improves. Driving Do not drive or ride in a car until your health care provider approves. Your seat belt could move the catheter out of position or cause irritation by rubbing on your incision. Do not drive or use heavy machinery while taking prescription pain medicine. Activity Rest and limit your activity. Return to your normal activities as told by your health care provider. Ask your health care provider what activities are safe for you. Do not lift anything that is heavier than 10 lb (4.5 kg), or the limit that you are told, until your health care provider says that it is safe. Preventing constipation To prevent or treat constipation, your health care provider may recommend that you: ? Take kiwb-dah-ynwgjvq or prescription medicines. ? Eat foods that are high in fiber, such as fresh fruits and vegetables, whole grains, and beans. ? Limit foods that are high in fat and processed sugars, such as fried and sweet foods. General instructions Do not use any products that contain nicotine or tobacco, such as cigarettes and e-cigarettes. If you need help quitting, ask your health care provider. Follow instructions from your health care provider about eating or drinking restrictions. Do not take baths, swim, or use a hot tub until your health care provider approves. Ask your health care provider if you may take showers. You may only be allowed to take sponge baths. Wear loose-fitting clothing that keeps the catheter covered so that it cannot get caught on something. Keep your catheter clean and dry. Keep all follow-up visits as told by your health care provider. This is important. Contact a health care provider if: You have a fever. You have redness, swelling, or more pain around an incision. You have fluid or blood coming from an incision. An incision feels warm to the touch. You have pus or a bad smell coming from an incision. You cannot eat or drink without vomiting. Get help right away if: You have problems breathing. You are confused. You have trouble speaking. You have severe pain in your abdomen that does not get better with treatment. You have bright red blood in your stool (feces), or your stool is dark black and looks like tar. These symptoms may represent a serious problem that is an emergency. Do not wait to see if the symptoms will go away. Get medical help right away. Call your local emergency services (911 in the [place] Do not drive yourself to the hospital. Summary After the procedure, it is common to have some pain or discomfort in your abdomen, your incision, or both. You may have to wait 2 weeks after your procedure before you can start peritoneal dialysis treatment. Check your incision area(s) every day for signs of infection. Get medical help right away if you have severe pain in your abdomen that does not get better with treatment. This information is not intended to replace advice given to you by your health care provider. Make sure you discuss any questions you have with your health care provider. Document Released: 2018 Document Revised: 11/27/2019 Document Reviewed: 2018 [employer] Patient Education 2020 [employer]. Additional Information VACCINATE! IT SAVES LIVES! Members of the community who have not yet received the COVID-19 vaccine and would like to receive it can visit one of [facility] vaccine clinics. There are many vaccine clinic locations within the [facility]. For locations and available times, please visit https://gettheshot.coronavirus.[place].gov/. It is important to note that some COVID mobile vaccine clinics are held outdoors and may be canceled in rainy or stormy conditions. To learn more about pediatric vaccinations (ages 5-11), we invite you to visit the [facility] webpage. https://www.[facility].org/pa ges/4121-Udipo-Ifcniizvmqt-Freque magc-Izpzg-Mmqdqhyju.html To learn more about the COVID-19 vaccine, we invite you to visit the CDC website for a list of frequently asked questions.https://www.cdc.gov/cor onavirus/2019-ncov/vaccines/faq.h tml [facility] Patient Portal Access Instructions: Stay connected with your healthcare team and access your personal medical information anytime with the [employer] Patient Portal. Please follow the directions below to create your [facility] [facility] account: 1.Access the email account you provided upon registration to the hospital/physician office.2.Look for an invitation email from [facility].3.Open the email and access the invitation link: Accept Invitation to [facility].4.Fill in the required apyne to create your account. To access your account, visit [email or web address]. Click the blue button labeled Access Patient Portal and then log in with the username and password that you created in the steps above. You will be able to view your test results, lab results, a summary of your visits, upcoming appointments and more. There is also a convenient messaging option where you can send secure messages to your provider. In addition, you will have the ability to download any documents or summaries to your computer and/or send the information securely to a physician. Remember that your healthcare information is confidential, so carefully consider who you will allow to register on the [employer] Patient Portal for access to your information. You can also access the [facility] [employer] Patient Portal on the [facility] robi. Simply click on Patient Portal and then log into your account. If you would like to receive a full copy of your medical records, please contact the [facility] Medical Records Department by calling [phone], Sunday through Sunday between 8 a.m. and 4:30 p.m. HOW TO SAFELY DISPOSE OF PRESCRIPTION MEDICATIONS Please use one of the following methods to safely dispose of your unused medications. 1.Use a drug disposal kit: the drug disposal pouch allows you to safely discard your old and unused drugs. Ask your nurse to give you one when you are discharged.2.Visit a local take-back location: Many local pharmacies and police departments have programs that collect old and unwanted prescription drugs. Call your local pharmacy or go to http://[employer].Impraise/0I5Jb2l to find one close to you.3.Make use of household items: Use cat litter or old coffee grounds to dispose medications if other options are not available. Mix your drugs with these household products, seal them in an airtight container and throw it into the garbage. Call [facility]: [phone] to be sure your drugs can be disposed of in this way. Some medicines may require a different approach.4.Never flush your medications down the toilet. IF YOU HAVE BEEN PRESCRIBED AN OPIOID FOR PAIN If you have been prescribed an opioid (such as hydrocodone, oxycodone or morphine), it is critical to understand the possible side effects and risks of opioid pain medications. Even when taken as directed, opioids can have several side effects including: Tolerance, meaning you might need to take more of a medication for the same pain relief. Nausea, vomiting and/or constipation. Sleepiness, dizziness, dry mouth, confusion, depression or itching. Physical dependence, meaning you have withdrawal symptoms when a medication is stopped, can develop within a few days. KNOW YOUR RESPONSIBILITIES It is important to know exactly how much and how often to take the opioid pain medications you are prescribed. Never take opioids in higher amounts or more often than prescribed. Do not combine opioids with alcohol or other drugs that cause drowsiness, such as benzodiazepines, also known as benzos, including diazepam and alprazolam, muscle relaxants or sleep aids. Never sell or share prescription opioids. This is illegal. Store opioids in a secure place and out of reach of others (including children, family, friends and visitors). The last page of this document has been signed and retained as a CHART COPY. Signatures Patient Education Materials 1-SDS Discharge Instructions Template (05/2018) Peritoneal Dialysis Information Peritoneal Dialysis Catheter Placement Peritoneal Dialysis Catheter Placement, Care After Medication Leaflets My discharge plan and instructions have been reviewed and explained to me and I,PETE CONLEY understand my current condition and have read and understand these discharge instructions. I have received a written copy of the plan/instructions. If I have questions, I am aware that I should contact my doctor. Patient/Medicaid Collection Specialist Signature: Date/Time: Relationship to Patient: ____ Witness Name/Signature: Date/Time: [facility] 01-23-2023 Anesthesiology Consult note Patient: PETE CONLEY Age: 72 years Sex: Male : 1950 Associated Diagnoses: None Author: SUZAN FARFAN MD Preoperative Information Time of last food or liquid consumption: 01/23/2023 00:00:00 Anesthesia history Patient's history: negative. Family's history: negative. History of Present Illness Pete is a 72-year-old male here today for a laparoscopically assisted insertion of peritoneal dialysis catheter. His past medical history includes CKD stage IV, congestive heart failure, diabetes type II, home oxygen therapy 2-3 L nasal cannula, hypertension, psoriasis, postinflammatory pulmonary fibrosis BPH, community-acquired pneumonia. Health Status Allergies: Allergic Reactions (Selected) Severity Not Documented Clams- No reactions were documented. Nonallergic Reactions (Selected) Severity Not Documented AmLODIPine- Decreased renal function. Aspirin- Heart rate fast. MetFORMIN- Decreased kidney function., Allergies (4) ActiveReaction amLODIPineDecreased renal function aspirinHeart rate fast ClamsNone Documented metFORMINDecreased kidney function Current medications: (Selected) Inpatient Medications Ordered Kefzol: 2 gram(s), 20 mL, 240 mL/hr, IV Push (INT), PREOP pharm NS 1,000 mL: 20 mL/hr, Intravenous Prescriptions Prescribed mupirocin 2% topical ointment: 1 robi, Topical, BID, Bilateral intranasal application twice daily x 5 days pre-surgery., 22 gram(s), 0 Refill(s) Documented Medications Documented Vitamin D3 125 mcg (5000 intl units) oral tablet: 125 mcg, 1 tab(s), Oral, qDay, 100 tab(s), 0 Refill(s) allopurinol 300 mg oral tablet: 300 mg, 1 tab(s), Oral, qDayPC, 0 Refill(s) amoxicillin-clavulanate 875 mg-125 mg oral tablet: 1 tab(s), Oral, q12h, for 10 day(s) calcitriol 0.5 mcg oral capsule: 0.5 mcg, 1 cap(s), Oral, Daily, 0 Refill(s) carvedilol 6.25 mg oral tablet: 6.25 mg, 1 tab(s), Oral, BID, 0 Refill(s) doxycycline hyclate 100 mg oral tablet: 100 mg, 1 tab(s), Oral, BID, for 10 day(s) finasteride 5 mg oral tablet: 5 mg, 1 tab(s), Oral, qDay glipiZIDE 10 mg oral tablet: 10 mg, 1 tab(s), Oral, BIDAC hydrALAZINE 10 mg oral tablet: 10 mg, 1 tab(s), Oral, BID tamsulosin 0.4 mg oral capsule: 0.4 mg, 1 cap(s), Oral, qDay torsemide 20 mg oral tablet: 20 mg, 1 tab(s), Oral, qDay, Medications (2) Active Scheduled: (1) ceFAZolin syringe 2 gram(s) 20 mL, IV Push (INT), PREOP pharm Continuous: (1) NS (0.9% nacl) 1,000 mL 1,000 mL, Intravenous, 20 mL/hr PRN: (0) Problem list: Medical Obesity (BMI 30-39.9) / SNOMED CT 134451085 / Confirmed CKD (chronic kidney disease), stage IV / SNOMED CT 6623429391 / Confirmed CAP (community acquired pneumonia) / SNOMED CT 9886130047 / Confirmed Congestive heart failure / SNOMED CT 90802213 / Confirmed Home oxygen therapy / SNOMED CT 0177585587 / Confirmed Hypertension / SNOMED CT 13110730 / Confirmed Prostatic hypertrophy / SNOMED CT 198985984 / Confirmed Burning with urination / SNOMED CT 713415398 / Confirmed Sciatica / SNOMED CT 80283657 / Confirmed Sleep apnea / SNOMED CT 007662480 / Confirmed Uses continuous positive airway pressure (CPAP) ventilation at home / SNOMED CT 8271591229 / Confirmed, Active Problems (18) Burning with urination CAP (community acquired pneumonia) CKD (chronic kidney disease), stage IV Congestive heart failure Diabetes Glasses Hard of hearing Home oxygen therapy Hypertension Kidney failure Obesity (BMI 30-39.9) On home oxygen therapy Prostatic hypertrophy Psoriasis Sciatica Shortness of breath Sleep apnea Uses continuous positive airway pressure (CPAP) ventilation at home Histories Past Medical History: Active CAP (community acquired pneumonia) ([id number]) Comments: 01/03/2023 EDT 13:37 EDT - DENIA De Luna on 2 antibiotics Family History: Diabetes mellitus Brother Heart disease Sister Old age Mother HTN - Hypertension Father Diabetes Father Procedure history: Amputation, foot; transmetatarsal (73785) in 2013 at 62 Years. Comments: 12/18/2022 14:22 EDT - Padmini Bonilla LPN Right foot Amputation lesser toe ([id number]). Comments: 01/03/2023 13:47 EDT - DENIA De Luna left 4th toe Dialysis catheter ([id number]). Social History Social & Psychosocial Habits Alcohol 12/18/2022 Use: Never 01/03/2023Risk Assessment: Denies Alcohol Use Substance Abuse 12/18/2022 Use: Never 01/03/2023Risk Assessment: Denies Substance Abuse Tobacco 12/18/2022 Tobacco Use: Former smoker, quit more Comment: Quit smoking in 1979 - 12/18/2022 14:22 - Padmini Bonilla LPN 01/03/2023Risk Assessment: No Risk Home/Environment 01/03/2023 Domestic Concerns None Living situation: Home with assistance Safe place to go: Yes Current Home Treatments Blood Glucose monitoring, Blood Pressure monitoring, CPAP, Oxygen therapy Marital Status of Patient if Patient Independent Adult: . Physical Examination Vital Signs 01/23/2023 7:36 EDT Peripheral Pulse Rate 64 bpm Respiratory Rate 16 br/min 01/23/2023 7:23 EDT Temperature Temporal Artery 36.2 DegC Peripheral Pulse Rate 64 bpm Respiratory Rate 16 br/min Systolic Blood Pressure Non-Invasive 157 mmHg HI Diastolic Blood Pressure Non-Invasive 82 mmHg Vital Signs(last 24 hrs) Last Charted Resp Rate 16 br/min (JAN 23 07:36) SBPH 157mmHg (JAN 23 07:23) DBP82 mmHg (JAN 23 07:23) Measurements from flowsheet : Measurements 01/23/2023 7:23 EDT Height 180.3 cm Height in inches 71 inch(es) Admission Weight 107.6 kg Weight Lbs 236.7 lb Weight Method Actual Current Weight 107.6 kg [place] Body Weight 75.26 kg Admission Body Mass Index 33.1 m2 01/23/2023 7:21 EDT Body Mass Index 36.83 kg/m2 Pain assessment: Pain Assessment 01/23/2023 7:23 EDT Primary Pain Intensity 0 Pain Scale Type 0-10 Pain scale . General: Alert and oriented. Airway: Mallampati classification: II (soft palate, fauces, uvula visible). Dentition Evaluation: Intact, Own teeth. Respiratory: Lungs are clear to auscultation. Cardiovascular: Normal rate. Heart Sounds: Normal. Review / Management Results review: No qualifying data available , Lab results 01/23/2023 7:38 EDT SN - Preop - CTm Pt Ready for OR/Proced 01/23/2023 7:38 01/23/2023 7:37 EDT Blood Glucose, Capillary 140 mg/dL HI Forearm Left 01/23/2023 20 gauge Peripheral IV Activity: Insert new site Peripheral IV Site Condition: No complications Peripheral IV Equipment: Manual Peripheral IV Number of Attempts: 1 albuterol-ipratropium 3 mL mL lidocaine Not Done: Other (Not Done) Sodium Chloride 0.9% Begin Bag 1,000 mL mL 01/23/2023 7:36 EDT Peripheral Pulse Rate 64 bpm Respiratory Rate 16 br/min Respirations Unlabored Breath Sounds Auscultated Anterior only All Lobes Breath Sounds Diminished Patient Effort Fair Aerosol Delivery Device Small volume nebulizer Aerosol Treatment Route Mouth piece Cough and Deep Breathe Done Spontaneous Cough No Oxygen Saturation 100 % Respiratory Treatment Charge Aerosol treatment Level of Consciousness Alert 01/23/2023 7:23 EDT Height 180.3 cm Height in inches 71 inch(es) Admission Weight 107.6 kg Weight Lbs 236.7 lb Weight Method Actual Current Weight 107.6 kg [place] Body Weight 75.26 kg Admission Body Mass Index 33.1 m2 Temperature Temporal Artery 36.2 DegC Peripheral Pulse Rate 64 bpm Respiratory Rate 16 br/min Systolic Blood Pressure Non-Invasive 157 mmHg HI Diastolic Blood Pressure Non-Invasive 82 mmHg Primary Pain Intensity 0 Pain Scale Type 0-10 Pain scale Heart Rhythm Regular Respirations Unlabored Respiratory Pattern Regular All Lobes Breath Sounds Diminished Oxygen Therapy Nasal cannula 0L-6L Oxygen Saturation 100 % Oxygen Flow Rate 2 Abdomen Description Non-distended Bowel Sounds All Quadrants Present Urinary Elimination Voiding, no difficulties Skin Symptoms Rash Skin Temperature Warm Skin Description Dry IV Present Present Neurological Symptoms Patient denies Extremity Movement Equal Characteristics of Speech Clear Level of Consciousness Alert DIEUDONNE Yes Strength All Extremities Moderate Tone All Extremities Normal Sensation All Extremities Intact Violence Risk Confused No Violence Risk Irritable No Violence Risk Boisterous No Violence Risk Verbal Threats No Violence Risk Physical Threats No Violence Risk Attacking Objects No Violence Risk Predictor Score 0 Affect/Behavior Appropriate, Calm, Cooperative Orientation Oriented x 4 Allergies Yes Consent Form Signed Yes Patient Dressed In Hospital gown CHG Preoperative Wash/Wipe Night before procedure, Day of procedure, Site specific wipe Non-CHG Preoperative Shampoo Not applicable Preop Nasal Swab Alcohol based (Nozin) CHG Skin Prep Completed for Eligible Surgery History & Physical Update On Chart Yes History & Physical On Chart Yes Obstructive Sleep Apnea Assess Completed Yes MRSA/MSSA Protocol Yes Ed-Safety, Fall Verbalizes/Nonverbally indicates understanding Individuals Taught Patient Learning Readiness Willing to learn Barriers to Learning None evident Teaching Method Explanation Preferred Written Language Wallisian Preferred Spoken Language Wallisian General Infection Prevention Strategies Hand hygiene, Remind visitor/caregiver to wash hands, Remind patient/visitor to mask when w/Healthcare Provider, Respiratory hygiene - Cover Your Cough Surgical Site Infection Prevention SSI FAQ provided Infection Prevention Teaching Evaluation Verbalizes/Nonverbally indicates understanding Pre Procedure/Surgery Education Appropriate expectations, Bring glasses, hearing aids, contact lens case, Date/Time of procedure/surgery, Hospital gown requirement worn to OR, Leave valuables, jewelry, wedding ring at home, Meds to take or hold, NPO Procedure/Surgical Teaching Evaluation Verbalizes/Nonverbally indicates understanding Ed-Safety Verbalizes/Nonverbally indicates understanding Ed-Pain Scale Verbalizes/Nonverbally indicates understanding Ed-Pain, Acute Verbalizes/Nonverbally indicates understanding Belongings At Bedside Pants, Shirt, Shoes, Undergarments, Other: oxygen concentrator NPO Status Maintained Standard Safety ID band on, Allergy Band on, Call device within reach, Bed in low position, Wheels locked, Upper/Half-Length side-rails up, Phone within reach, personal items within reach, Assistive devices within reach Demonstrates Correct Call Light Use Yes Allergy Band on and Verified Yes Patient ID Band on and Verified Yes Implants Verified Yes Pacemaker/AICD Verified Yes Last Fluid Intake 01/22/2023 23:30 Last Food Intake 01/22/2023 19:00 Last Void 01/23/2023 7:27 01/23/2023 7:21 EDT Body Mass Index 36.83 kg/m2 Safety Brochure Information Reviewed Yes [place] Video Viewed No Teaching Evaluation Verbalizes/Nonverbally indicates understanding Admission Note-Nursing Same Day Patient History (Modified) 01/23/2023 7:16 EDT SN - Preop - CTm Pt in SDS Room 01/23/2023 7:16 01/22/2023 13:38 EDT Surgery Scheduled On Date/Time 01/23/2023 8:30 (Modified) Arrival Time the Day of Surgery 01/23/2023 6:30 (Modified) Patient Aware of Arrival Time Yes Pre-Op Patient Education NPO after midnight, No smoking after midnight, No makeup, No jewelry, Responsible Democrat, Aware of surgery location, 2 bottles CHG wash with instructions given, Instructed to take ordered medications, Instructed to bring home medications, VTE prevention handout given, SSI prevention handout given, MRSA protocol education provided (Modified) SN - Preprocedure Comments Spoke with patient, Verbalizes/Nonverbally indicates understanding Admission Note-Nursing Date\Time Correction . Assessment and Plan [place] [employer] Anesthesiologists (ASA) physical status classification: Class III, ESRD; DM; HTN; MACY. Anesthetic Preoperative Plan Anesthetic technique: General. Maintenance airway: Oral endotracheal tube. Risks discussed: nausea, vomiting, headache, sore throat, dental injury, hypotension, allergic reaction, serious complications. Informed consent: signed by patient. Notes: Patient was seen and examined by Suzan euceda MD. The medical record was reviewed. Consultations, lab results , radiographic results and cardiovascular studies examined and noted. Anesthesia was explained in detail and questions were invited and answered. We will proceed as outlined in the plan above.. Digitally Signed by SUZAN FARFAN MD on 01/23/2023 07:43 AM Digitally Signed by SUZAN FARFAN MD on 01/23/2023 08:16 AM [facility] 01-02-[address] chest WO IVCON scheduled on 04/04/2023 at 9 am. Follow up scheduled for 04/19/2023 at 2:45 pm. Called patient and informed of date and time. Faxed orders. Makeda Salamanca MA documented in this encounter [facility] 01-02-2023 Instructions Makeda Salamanca MA - 01/02/2023 2:40 PM EDT We will call you with the date and time of your CT scan of your chest. At that time, we will schedule your follow up appointment for results. Please get the labs when you can, this will show us if your infection fighting proteins are good. Please call us if you need anything. Thank you. documented in this encounter [facility] 01-02-2023 History of Present illness Narrative [facility] Department of Pulmonary & Sleep Medicine Crystal Bauer DO Pulmonary Progress Note Pete Conley is a 72 year old male who is returning for follow up evaluation of Postinflammatory pulmonary fibrosis, IPD, and MACY on CPAP. History of Illness Since Last Visit: Patient was seen in the ER for pneumonia. He states that he is starting to feel better. H was put on Augmentin and doxycycline. He was on 1.5 liters of oxygen but has bumped it up to 2 liters. He benefits with use. Patient asked why he is getting pneumonia so much. Will order labs. Patient denies any trouble swallowing or aspirating on anything. He denies ever being vaccinated for the flu or pneumonia. Advised that he get an immunization and explained the benefits. Discussed patients prior CT scan per patient. This shows a 12 mm nodule. We will repeat the CT in 3 months and follow up after. Patient continues on CPAP and benefits with usage. No hemoptysis, chest pain, pleurisy, wasting syndrome or weight loss. I, Makeda Salamanca MA, transcribing for Crystal Bauer DO. HISTORY PAST MEDICAL HISTORY Diagnosis Date Acute and chronic respiratory failure with hypoxia (HCC) BPH (benign prostatic hyperplasia) Community acquired pneumonia Diabetes (HCC) History of cardiovascular stress test 10/10/2021 -Impression: Enlarging dilated LV and the setting of global hypokinesis. Calculated EF 39%. This may represent the sequela of chronic hypertension or other cardiomyopathy. No images evidence of stress-induced myocardial ischemia. History of echocardiogram 03/18/2021 Echocardiogram demonstrates a suboptimal study. EF 50 to 55%. Moderate concentric LVH. Class I diastolic dysfunction. Left atrium is mildly dilated. Mild a S. Mild to moderate MR. Mild TR. Borderline to mild PHT. History of echocardiogram 10/04/2022 EF 45-50%. Left ventricle cavity size is normal. Wall thickness is normal. Systolic funciton is mildly reduced. Hypokinesis of the anterolateral myocardium. Hypokinesis of the inferioir myocardium Grade 2 diastolic dysfunction. Mitral valve the annulus is mildly calcified. The leaflets are moderately thickened. Thickening. Severe regurgitation. Left atrium is mildly dilated. History of echocardiogram 12/22/2022 EF 50% demonstrates concentric left ventricular hypertrophy. Slight hypokinesis of distal septal wall. Mild to moderate MR. Mild TR. Aortic valve is sclerotic, thickened, but the valve area is noted to be normal. History of echocardiography 10/07/2021 -Echocardiogram demonstrates of the difficult study with minimal information obtainable. LV is dilated with an EF at 45 to 50%. Diastolic function is indeterminate. Aortic valve is poorly visualized but no evidence for aortic stenosis by Doppler analysis. Moderate mitral annular calcification without hemodynamically significant MS. Mild MR. History of smoking HTN (hypertension) Obstructive sleep apnea on CPAP PAST SURGICAL HISTORY Procedure Laterality Date PAST SURGICAL HISTORY OF Right TMA TONSILLECTOMY HX Social History Tobacco Use Smoking status: Former Packs/day: 1.00 Years: 14.00 Pack years: 14.00 Types: Cigarettes Quit date: 08/20/1979 Years since quittin.4 Smokeless tobacco: Never Vaping Use Vaping Use: Never used Substance Use Topics Alcohol use: Never Drug use: Never ALLERGIES: ALLERGIES Allergen Reactions Amlodipine Swelling Aspirin Other: See Comments tacchycardia Victoza [Liraglutid* Other: See Comments MEDICATIONS: Current Outpatient Medications Medication Sig finasteride (PROSCAR) 5 mg tablet Take 5 mg by mouth once daily. torsemide (DEMADEX) 20 mg tablet Take 20 mg by mouth twice daily. doxycycline (VIBRA-TABS) 100 mg tablet amoxicillin-clavulanic acid (AUGMENTIN) 875-125 mg per tablet OXYGEN, HOME THERAPY, Inhale 1.5 L/min as instructed continuous. hydrALAZINE (APRESOLINE) 50 mg tablet Take 1 tablet by mouth twice daily with meals. carvedilol (COREG) 6.25 mg tablet Take 1 tablet by mouth twice daily. bumetanide (BUMEX) 1 mg tablet Take 1 mg by mouth as needed. allopurinol (ZYLOPRIM) 100 mg tablet Take 100 mg by mouth once daily. glipiZIDE (GLUCOTROL) 5 mg tablet Take 10 mg by mouth twice daily. tamsulosin ER (FLOMAX) 0.4 mg Take 0.4 mg by mouth once daily. pioglitazone (ACTOS) 30 mg tablet Take 30 mg by mouth once daily. amLODIPine (NORVASC) 10 mg tablet Take 10 mg by mouth once daily. (Patient not taking: No sig reported) albuterol HFA (PROVENTIL HFA, VENTOLIN HFA) 90 mcg/actuation inhaler INHALE 1-2 PUFFS INTO LUNGS EVERY FOUR HOURS NEEDED FOR SHORTNESS OF BREATH/WHEEZING (Patient not taking: No sig reported) No current facility-administered medications for this visit. IMMUNIZATIONS: There is no immunization history on file for this patient. FAMILY HISTORY Problem Relation Age of Onset Diabetes Father No Known Problems Sister Arrythmias Brother Diabetes Brother Diabetes Sister Heart disease Sister I have personally reviewed the patients past medical history including social, family, surgical, diagnostics, and medications./WS REVIEW OF SYSTEMS Review of Systems Constitutional: Positive for fatigue. HENT: Positive for congestion. Eyes: Negative. Respiratory: Positive for apnea, cough and shortness of breath. Cardiovascular: Negative. Gastrointestinal: Negative. Endocrine: Negative. Genitourinary: Negative. Musculoskeletal: Negative. Skin: Negative. Allergic/Immunologic: Negative. Neurological: Positive for weakness. Hematological: Negative. Psychiatric/Behavioral: Positive for sleep disturbance. Vital Signs: BP 154/84 Pulse 88 SpO2 93[2 liters]% PHYSICAL EXAM: Vitals: BP 154/84 Pulse 88 SpO2 93[2 liters]% Const: Appears appropriate for age, well-developed, well-hydrated, well-nourished and pleasant. No signs of acute distress present and no signs of respiratory distress present. Breasts are examined. External genitalia and rectal exams were not performed. Head/Face: Normal on inspection. Symmetric facies. Eyes: Pupils equal round and reactive to light and accommodation. Visual acuity grossly intact. Does wear corrective lenses. ENMT: External ears wnl. Tympanic membranes translucent, with good landmarks bilaterally. Nasal mucosa is pink and moist. Septum is in the midline. Inferior turbinates are normal without hypertrophy. No dental decay. Oropharynx: Appears normal. Tongue appears normal. Mallampati Score: Class IV: Soft palate, base of uvula are wnl. No oral lesions, or candidiasis. Neck: Supple and symmetric. Palpation reveals no lymphadenopathy. Trachea midline. Thyroid is normal size. No JVD. Carotids: 2+upstroke and equal bilaterally, without bruits. Resp: AP diameter is unremarkable. Respiration rate is normal. No use of accessory muscles noted. No wheezing. Percussion is resonant and equal. Voice resonance is clear. Chest is normal to inspection and palpation. No extranneous sounds, wheeze, rhonchi, rub, dullness to percussion, or egophony. No bronchial breath sounds, or pectoriloquy. No laryngeal stridor. Bibasilar crackles and rales-right worse than left. CV: S1 is normal. S2 is normal. No murmur, clicks, gallops or rub. Capillary refill is normal. No LV or RV heave. No gross pulse deficits. Abdomen: Positive bowel sounds. No bruits. No tenderness over the abdomen on percussion. No pulsatile masses present. No palpable hepatosplenomegaly. No pulsatile mass, bruit, and inguinal adenopathy, or femoral bruits. Lymph: No palpable or visual regional lymphadenopathy. Musculo: Upper Extremities: Normal muscle tone bilaterally. Normal ROM bilaterally. Lower Extremities: Normal muscle tone. Full ROM bilaterally. No digital clubbing, cyanosis , lymphedema, or pitting edema. Skin: Skin warm and dry with no evidence of unusual rashes or suspicious lesions. No obvious decubiti, or active synovitis. Neuro: Alert and oriented 3. Achilles and patellar DTR's are brisk and symmetrical. Coordination normal. Good mobility of all extremities. Cranial nerves grossly intact. Psych: Affect is normal. Thought process appears clear and appropriate. T.OBESE DATA REVIEW Chest X-rays: 12/31/2022 Left lower lobe infiltrate with mild central venous pulmonary congestion. CT Scans: 12/18/2022 No significant change in the interstitial lung disease. 12 mm left ground-glass pulmonary nodule. ECHO: 12/22/2022 Echocardiogram demonstrates concentric left ventricular hypertrophy. Ejection fraction 50%. PA pressure increased at 35 mmHg. Oximetry : 93% saturated at rest on 2 liters [place] Sleepiness Scale: 5 ASSESSMENT/PLAN: 1. Chronic hypoxemic respiratory failure (HCC) - ICD9: 518.83, 799.02, ICD10: J96.11 (primary diagnosis) Compliant with and benefits from oxygen therapy. 2. Postinflammatory pulmonary fibrosis (HCC) - ICD9: 515, ICD10: J84.10 3. MACY on CPAP - ICD9: 327.23, V46.8, ICD10: G47.33, Z99.89 Compliant with pap therapy and benefits from use. 4. Psoriasis - ICD9: 696.1, ICD10: L40.9 5. SOB (shortness of breath) - ICD9: 786.05, ICD10: R06.02 6. Obesity, Class II, BMI 35-39.9 - ICD9: 278.00, ICD10: E66.9 7. Former smoker - ICD9: V15.82, ICD10: Z87.891 8. DCM (dilated cardiomyopathy) (HCC) - ICD9: 425.4, ICD10: I42.0 9. History of 2019 novel coronavirus disease (COVID-19) - ICD9: V12.09, ICD10: Z86.16 10. Chronic obstructive pulmonary disease, unspecified COPD type (HCC) - ICD9: 496, ICD10: J44.9 11. Solitary pulmonary nodule - ICD9: 793.11, ICD10: R91.1 Ct chest in 3 months: GGN LLL 12mm Crystal Bauer (Electronically signed expedite mailing) FOLLOW UP: Return in about 3 months (around 04/04/2023). This note was generated with voice recognition software and may contain errors including spelling, grammar, and syntax and mis-recognition of what was dictated that are not fully corrected. I have discussed the recommended treatment, alternative treatments and other treatment options in detail. I have discussed the risks, benefits and side effects of the recommended treatment in detail as well. I have attempted to answer all their questions to their satisfaction, and understanding of the explanation has been voiced. With approval we will pursue the recommended treatment. I, Crystal Bauer, have reviewed and agree with the information in the medical record transcribed by Makeda Salamanca MA. Crystal Bauer DO documented in this encounter [facility] 12-31-2022 [place] [address] HEALTH INFORMATION MANAGEMENT EMERGENCY DEPARTMENT REPORT Patient: PETE CONLEYSARA D.O. [id number] M Status: REG ER ED Date of Service: 12/31/22 CHIEF COMPLAINT: Weakness for the past couple of days, blood sugar over 300. HISTORY OF PRESENT ILLNESS: The patient is a 72-year-old male presenting to the Emergency Department with chief complaint of increased weakness. He states he has just been feeling fatigued and weak for the past 2 to 3 days. He denies any vomiting or diarrhea. He does admit to a little bit of cough. He states the cough has been nonproductive. He denies any chest pain. No shortness of breath. No swelling in his legs. He does have a recent past medical history of some chronic kidney disease that is in the process of getting set up with peritoneal dialysis. Apparently that appointment is this coming . He states that today his blood sugar was over 300, which prompted him to come to the emergency department. REVIEW OF SYSTEMS: Negative except for HPI. PHYSICAL EXAMINATION: GENERAL: The patient is alert and appeared to be in no acute distress. He has stable vital signs. HEENT: The head was normocephalic, atraumatic. Eyes; pupils are equal with normal conjunctivae. Skin was dry. He is cooperative with the exam. HEART: Regular rate and rhythm. I do not appreciate any murmurs, gallops, or rubs. LUNGS: Diminished. I do not appreciate any wheezing. He did have a bronchospastic cough. ABDOMEN: Soft and nontender. EXTREMITIES: There is no pitting edema to the lower extremities. EMERGENCY DEPARTMENT CLINICAL COURSE: The patient was hemodynamically stable, nonseptic, and nontoxic while here in the Emergency Department. I did get some lab work on the patient. He had a white count of 14,000, hemoglobin 13.6, hematocrit 42.6, platelet count was normal. Chemistry panel showed a normal bicarb, a normal anion gap. He does have a creatinine that is a BUN of 120, creatinine is 3.58 and his creatinine is actually improved from the last hospitalization, it was 4.0. He has a blood sugar here which was 189. Initial troponin was 86. A delta troponin was 80. ProBNP is chronically elevated and in last hospital stay, it was 12,000; today, it is 13,000, that I think is likely related to his chronic kidney disease. Urinalysis showed no signs of infection. Flu, RSV, and COVID were negative. Here chest x- ray shows a left lower lobe infiltrate with a mild central venous pulmonary congestion. At this point, the patient is coughing. I do think that his symptoms are related to pneumonia. He is not hypoxic. He is not tachypneic. At this point, he has a CURB-65 score of 2. At this point, he does not appear to be septic in nature. I think it is appropriate to treat the patient with oral antibiotics as an outpatient. I am going to get him first dose of Augmentin here. I am going to get a prescription for Augmentin as well as doxycycline. I do want him to follow up with primary care doctor. He is to return to the emergency department if symptoms worsen or if new symptoms develop. He is to keep his appointment with manager strategy for this week and he is to return to the emergency department if symptoms worsen. Clinically, he does not appear to be in a CHF exacerbation. He is not in fluid overload. He is mentating well. At this point, I think he can be discharged home in stable condition. IMPRESSION: 1. Pneumonia of left lung. 2. Chronic kidney disease. DISPOSITION: The patient will be discharged home. Report#: Dict ID [id number] / Int ID [id number] <Electronically signed by SARA HAY D.O.> 12/31/22 2245 SARA HAY D.O. cc: MOISES PRATER M.D.; SARA HAY D.O. << Signature on File>> Reported By: SARA HAY D.O. Signed By: SARA HAY D.O. Tests performed at: [address] [address] documented in this encounter [facility] 12-25-2022 Hospital Discharge instructions Lauren Hutchinson MD - 12/25/2022 11:58 [place] [address] HEALTH INFORMATION MANAGEMENT IP DISCHARGE INSTRUCTIONS Patient: PETE CONLEY TIKAL M.D. [id number] 72 M Status: ADM IN [facility] 2075- Date of Admission: 12/21/22 Date of Discharge: InPatient Discharge Discharge Diagnosis CHF excaerbation - RESOLVED [place] on CKD - Will require PD catheter placement for dialysis CAD - severe CAD; needs cardiac cath after being on maintanence HD Condition on Discharge Stable Diet Renal diet Activity As Tolerated Daily Weight If you have been told that you have heart failure you must weigh daily . If you gain 3 pounds in a day or 5 pounds in a week, call the Physician. Follow up FOLLOW UP with: 1. PCP in 2 weeks 2. Plant Guard in 2 weeks 3. Pyrotechnic Assembler in 2 weeks <Electronically signed by LAUREN HUTCHINSON M.D.> 12/25/22 1200 5.28 __ LAUREN HUTCHINSON M.D. IN A FEW DAYS YOU WILL RECEIVE OUR PATIENT SURVEY IN THE MAIL. PLEASE TAKE A FEW MINUTES TO COMPLETE THE SURVEY AND LET US KNOW HOW WELL WE MET YOU NEEDS. FEEL FREE TO ADD ANY COMMENTS OR SUGGESTIONS. THANK YOU FOR CHOOSING [facility]. << Signature on File>> Reported By: LAUREN HUTCHINSON M.D. Signed By: LAUREN HUTCHINSON M.D. Tests performed at: [id number] [place], [place] [address] documented in this encounter [facility] 12-25-2022 Hospital course Narrative [facility] [place] [address] HEALTH INFORMATION MANAGEMENT DISCHARGE SUMMARY Patient: PETE CONLEY TIKAL M.D. [id number] 72 M Status: ADM IN [facility] 2075-A Date of Admission: 12/21/22 Discharge Summary Date of Discharge: 12/25/22 Discharge Diagnosis: 1. Acute congestive heart failure A&P Patient presented with increasing SOB and edema On bumex drip Now started to make good urine Plan Fluid restirction to 1800 ml per day Renal diet Will discharge on torsomide as per the manager strategy. Talked regardinf the case in detail with Dr. Alexander. We reivewed the CT chest together. There is extensive atherosclerosis of the caoronary arteries meaning he has severe CAD. This would require cath and most likely a CABG as a definitive solution. HOwevr, as his renal fdunction is down, cath agt this time is not an option. 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 2. Acute kidney injury superimposed on CKD A&P Creat 4; slightly more than her last year bsaleine ogf 2.89 Made 2450 ml urine yesterday Was on bumex drip and was DC'ed to toromide Talked with Dr. Russ and he recommended toromide on discharge Plan CONTINUE torosmide 20 mg BiD 3. BPH (benign prostatic hyperplasia) A&P Has a large prostate causing mass effect on bladder base as per the CT abdomen report today Plan CONTINUE tamsulosin 0.4 mg nightly CONTINUE finasteride 5 mg daily 4. Essential (primary) hypertension A&P BP in acceptable range Plan CONTINUE carvidelol 6.25 mg BiD 5. DM2 (diabetes mellitus, type 2) A&P FS in acceptable range Plan CONTINUE sliding scale insulin 6. MACY (obstructive sleep apnea) A&P Can use CPAP at night 7. Morbid obesity A&P BMI 37.4 Plan Diet and calorie restriction Defer further management to PCP on discharge HPI: A 72 year old male with PMHx of CHF, HTN, Pulmonary fibrosis, Chronic respiratory failure(2 L NC at home), CKD, MACY, BPH who presents to the ED with c/o of Increased SOB and Swelling of his whole body. Patient reports he has feeling SOB, associated with swelling of his body, Productive cough with yellow sputum, nausea, vomiting once. Denies any chest pain, nausea, vomiting, abdominal pain, bladder changes. Of note Constipation at times. Of note patient suppose to see his manager strategy for Possible Dialysis cath on abdomen but did not make it due to current health condition Family history: No known HTN, CHF, Other medical problems Past surgical history: Tonsilectomy Social history: denies any tobacco, etoh or illicit drug abuse Hospital Course: Patient presented with wotrseing SOB and swleling og the bod. he was diagnosed with [place] on CKD and CHF excaerbqation combination. He wa splaced on Bumex drip for the same and fluid restriction. He did well with that. He was making around > 2 litres of urine but his creatinien started to trend upwards. Nephrology was aware of the case and recommedned to hold bumex drip for a day. After holding the bumex drip, he was still making around 1.5 litres of urine and they reocmmedned that he can be discharged on torsomide. The patient is almost to the point of dialysis and the manager strategy has an appointment schediuled for him for PD cahteter polacement on as outpatient. He will be on PD after that. [employer] was also following the case for CHF exacerbation .CT chest was reviweed and it showed severe atherosclerosis of the coronary arteries. The ideal recommendations would be cardiac cath and possibly CABG after that however, that would require the renal functoin to be stabilised. Theuy recommedned that this can be done as an outpatient after the patient is kept on HD/PD. They will follow the needs as outpatient. The patient is stable to be discharged home today. Discharge Condition: Stable Disposition: Home CC: MOISES PRATER M.D. <Electronically signed by LAUREN HUTCHINSON M.D.> 12/25/22 1155 LAUREN HUTCHINSON M.D. cc: << Signature on File>> Reported By: LAUREN HUTCHINSON M.D. Signed By: LAUREN HUTCHINSON M.D. Tests performed at: [address] [place], [place] [address] documented in this encounter [facility] 12-25-2022 History of Present [place] [address] NEPHROLOGY PROGRESS NOTES Patient: PETE CONLEY CANDIDA RUSS M.D. [id number] [age] M Status: [facility] Report Date & Time: 12/25/22 1117 Subjective * Please Note: All systems reviewed and all are negative except systems noted. Pt seen and examined. ABdomen CT scan 1. Enlarged prostate gland with mass effect upon the urinary bladder base. Definite urinary bladder mass is not seen and ultrasound findings thought to represent an enlarged prostate. Consider further evaluation with cystogram. 2. Small bilateral pleural effusions with associated compressive atelectasis. Left lower lobe atelectasis or pneumonia. 3. Nonobstructing bilateral renal calculi. 4. Cholelithiasis without evidence of cholecystitis. Objective Focused Exam Performed General Appearance Alert Lungs Clear to Auscultation Cardiovascular NSR Abdomen Normal Bowel Sounds Extremities Edema Reviewed - Daily Labs/Vitals/Meds/Orders Hematology Range/Units 12/25 0436 Hematology WBC 4.5 - 10.0 x10(3) 6.2 RBC 4.80 - 5.50 x10(6) 3.79 L Hgb 14.0 - 17.2 g/dL 12.1 L Hct 42.0 - 51.0 % 36.6 L MCV 80.0 - 94.0 fl 96.6 H MCH 28.8 - 32.2 pg 31.8 MCHC 33.0 - 36.0 g/dL 32.9 L RDW 12.7 - 15.3 % 15.0 Plt Count 150 - 450 X10(3) 122 L MPV 7.4 - 9.2 fl 8.6 Neut % (Auto) 45.0 - 73.0 % 60.3 Lymph % (Auto) 16.0 - 48.0 % 14.0 L Addison % (Auto) 4.3 - 11.2 % 20.1 H Eos % (Auto) 0.5 - 4.9 % 5.2 H Baso % (Auto) 0.0 - 1.0 % 0.4 Neut # (Auto) 1.40 - 6.50 x10(3) 3.70 Lymph # (Auto) 1.00 - 3.50 x10(3) 0.90 L Addison # (Auto) 0.30 - 0.80 x10(3) 1.20 H Eos # (Auto) 0.00 - 0.54 x10(3) 0.30 Baso # (Auto) 0.00 - 0.10 x10(3) 0.00 Chemistry Range/Units 12/25 12/24 12/24 0436 2139 1648 Chemistry Sodium 135 - 145 mmol/L 141 Potassium 3.5 - 5.0 mmol/L 4.4 Chloride 98 - 107 mmol/L 102 Carbon Dioxide 22 - 29 mmol/L 26 Anion Gap 15 - 22 mmol/L 17.4 BUN 8 - 23 mg/dL 86 H Creatinine 0.70 - 1.20 mg/dL 4.01 H Est GFR ( Amer) 18 Est GFR (Non-Af Amer) 15 Glucose 82 - 115 mg/dL 130 H POC Glucose 70 - 110 mg/dL 160 H 115 H Calcium 8.8 - 10.2 mg/dL 8.0 L Total Bilirubin 0.2 - 1.2 mg/dL 0.5 Direct Bilirubin 0.0 - 0.3 mg/dL <0.2 AST 5 - 40 U/L 21 ALT 5 - 41 U/L 9 Alkaline Phosphatase 40 - 130 U/L 72 Total Protein 6.4 - 8.3 g/dL 6.0 L Albumin 3.5 - 5.2 g/dL 3.3 L Globulin 1.5 - 4.5 g/dL 2.7 Albumin/Globulin Ratio 1.1 - 2.5 1.22 Range/Units 12/24 1124 Chemistry POC Glucose 70 - 110 mg/dL 189 H Vital Signs Date Time Temp Pulse Resp B/P B/P Pulse O2 O2 Flow FiO2 Mean Ox Delivery Rate 12/25 1114 4L 12/25 1016 77 154/67 12/25 0835 98.7 77 18 154/67 98 /08 0730 4L 12/25 0730 4L 12/25 0730 93 4L 12/25 0413 98.8 70 18 160/60 96 05/08 0236 96 / 0225 4L / 2345 98.3 94 22 111/65 93 C-Pap 10 12/24 2228 96 / 2207 4L / 2141 83 155/69 / 2100 98.9 83 20 155/69 96 Nasal 4 Cannula 12/24 2099 98.9 83 20 155/69 96 Nasal 4 Cannula 12/25 1999 98.9 83 20 155/69 96 / 1837 4L / 1755 168/71 / 1634 98.2 78 20 186/91 97 / 1502 4L / 1207 98.0 85 20 147/61 97 Intake & Output 12/25 0700 12/24 2300 12/24 1500 Intake Total 400 300 Output Total 975 1500 Balance -575 -1200 Current Medications Sig/Cal Start time Last Medication Dose Route Stop Time Status Admin Torsemide 20 MG BID 12/25 0900 AC 12/25 PO 1016 Allopurinol 200 MG QDAY 12/24 0900 I 12/25 PO 1014 Finasteride 5 MG QDAY 12/23 1045 AC 12/25 PO 1015 Guaifenesin 1,200 MG BIDPRN PRN 12/23 0200 AC 12/23 PO 0435 Tamsulosin HCl 0.4 MG QDAY@1800 12/22 1800 AC 12/24 PO 1836 Enoxaparin Sodium 30 MG QDAY 12/22 0900 I 12/25 SC 1015 Bumetanide 10 MG .Q20H 12/22 0700 DC 12/23 Sodium Chloride 100 ML IV 2314 Dextrose/Water 125 ML PRN PRN 12/22 0545 AC IV Dextrose/Water 250 ML PRN PRN 12/22 0645 AC IV Insulin Human Lispro See Dose SS PRN 12/22 0645 AC 12/24 Insts (1) SC 2148 Albuterol Sulfate 3 ML Q4H SVN PROTOCOL 12/21 220 AC 12/25 IH 1112 Carvedilol 6.25 MG BID 12/21 2100 AC 12/25 PO 1016 Melatonin 1 MG DAILY@12/21 AC 05 PO 2138 Albuterol Sulfate 3 ML PRN SVN PROTOCOL PRN 12/21 1900 AC IH Acetaminophen 650 MG Q6HPRN PRN 05/04 1845 AC PO Al Hydrox/Mg Hydrox/ 30 ML Q6HPRN PRN 12/21 1844 AC Simethicone PO Docusate Sodium 100 MG HSPRN PRN 12/21 1844 AC 12/24 PO 0937 Hydralazine HCl 10 MG Q4HPRN PRN 12/21 1844 AC IV Magnesium Hydroxide 30 ML QDPRN PRN 12/21 1844 AC PO Ondansetron HCl 4 MG Q4HPRN PRN 12/21 1844 AC IV Sodium Chloride 20 ML PRN PRN 12/21 1844 AC 12/22 IV 1028 Dose Instructions: (1)Insulin Human Lispro: PER SLIDING SCALE Orders Procedure Date/time Status zDischarge Instructions to Nsg 12/25 928 Active Discharge To Home 12/25 928 Active HEPATIC PANEL 12/26 399 Complete COMPLETE BLOOD COUNT 12/26 399 Complete BASIC METABOLIC PANEL 12/25 040 Complete GLUCOSE FS 12/24 2139 Complete GLUCOSE FS 12/24 1648 Complete GLUCOSE FS 12/24 1124 Complete PT THER PRO THE EXERCISE EA 15 12/23 UNK Complete THER PROC GAIT TRAIN EA 15 MIN 12/23 UNK Complete Problems Problems Current Problems 1. Acute congestive heart failure 2. MACY (obstructive sleep apnea) 3. CKD (chronic kidney disease), stage III 4. Acute kidney injury superimposed on CKD 5. DM2 (diabetes mellitus, type 2) 6. Essential (primary) hypertension Plan Plans Additional Comments Labs are stable. Urine output is fair. Continue with Torsemide. Pt continue with is scheduled out pt HD preparation. Follow labs. Ok to DC from renal stand point. Out pt renal follow up in 2-4wks <Electronically signed by CANDIDA RUSS M.D.> 12/25/22 1120 __ CANDIDA RUSS M.D. << Signature on File>> Reported By: CANDIDA RUSS M.D. Signed By: CANDIDA RUSS M.D. Tests performed at: [address] [address] [place] [address] PROGRESS NOTES Patient: PETE CONLEYTRISTAN Hutchins D.O. [id number] [age] M Status: ADM IN [facility] 6-A Report Date & Time: 12/24/22 1711 Subjective * Please Note: no distress talking on the phone Objective Focused Exam Performed General Appearance No Acute Distress HEENT EOMI, Mucous Membr. moist/pink Lungs Normal Air Movement Neck No Thryomegaly Cardiovascular Murmur, Gallop, Heave Abdomen No Hepatospenomegaly, No Masses, Obese Extremities No Edema Skin No Breakdown, Ecchymosis Neurological Sensation Intact, No sensory deficits Psych/Mental Status Anxious, Agitated Reviewed - Daily Reviewed Information Progress Notes, Telemetry, H&P, Labs, ECHO Labs/Vitals/Meds/Orders Hematology Range/Units 12/24 0500 Hematology WBC 4.5 - 10.0 x10(3) 6.5 RBC 4.80 - 5.50 x10(6) 3.72 L Hgb 14.0 - 17.2 g/dL 12.1 L Hct 42.0 - 51.0 % 36.1 L MCV 80.0 - 94.0 fl 97.2 H MCH 28.8 - 32.2 pg 32.6 H MCHC 33.0 - 36.0 g/dL 33.5 RDW 12.7 - 15.3 % 14.9 Plt Count 150 - 450 X10(3) 117 L MPV 7.4 - 9.2 fl 8.5 Neut % (Auto) 45.0 - 73.0 % 66.1 Lymph % (Auto) 16.0 - 48.0 % 10.3 L Addison % (Auto) 4.3 - 11.2 % 17.8 H Eos % (Auto) 0.5 - 4.9 % 5.1 H Baso % (Auto) 0.0 - 1.0 % 0.7 Neut # (Auto) 1.40 - 6.50 x10(3) 4.30 Lymph # (Auto) 1.00 - 3.50 x10(3) 0.70 L Addison # (Auto) 0.30 - 0.80 x10(3) 1.20 H Eos # (Auto) 0.00 - 0.54 x10(3) 0.30 Baso # (Auto) 0.00 - 0.10 x10(3) 0.00 Chemistry Range/Units 12/24 12/24 12/24 1648 1124 0500 Chemistry Sodium 135 - 145 mmol/L 140 Potassium 3.5 - 5.0 mmol/L 4.6 Chloride 98 - 107 mmol/L 101 Carbon Dioxide 22 - 29 mmol/L 26 Anion Gap 15 - 22 mmol/L 17.6 BUN 8 - 23 mg/dL 79 H Creatinine 0.70 - 1.20 mg/dL 4.00 H Est GFR ( Amer) 18 Est GFR (Non-Af Amer) 15 Glucose 82 - 115 mg/dL 155 H POC Glucose 70 - 110 mg/dL 115 H 189 H Calcium 8.8 - 10.2 mg/dL 8.0 L Total Bilirubin 0.2 - 1.2 mg/dL 0.5 Direct Bilirubin 0.0 - 0.3 mg/dL <0.2 AST 5 - 40 U/L 21 ALT 5 - 41 U/L 10 Alkaline Phosphatase 40 - 130 U/L 83 Total Protein 6.4 - 8.3 g/dL 6.0 L Albumin 3.5 - 5.2 g/dL 3.3 L Globulin 1.5 - 4.5 g/dL 2.7 Albumin/Globulin Ratio 1.1 - 2.5 1.22 Range/Units 12/23 2115 Chemistry POC Glucose 70 - 110 mg/dL 149 H Vital Signs Date Time Temp Pulse Resp B/P B/P Pulse O2 O2 Flow FiO2 Mean Ox Delivery Rate 12/24 1634 98.2 78 20 186/91 97 / 1502 4L 12/24 1207 98.0 85 20 147/61 97 / 1050 4L / 0938 81 170/83 05/ 0804 98.5 81 21 170/83 98 05/ 0700 45% 05/ 0700 45% / 07 98 45% / 07 98 / 0330 99.2 78 22 167/78 97 C-Pap 10 / 0227 40 05/ 0227 94 05/ 2320 99.5 80 21 132/82 95 C-Pap 10 12/237 40 12/23 2206 93 05/06 2125 84 119/77 12/23 2099 99.2 84 20 119/77 92 Nasal 4 Cannula 12/23 2099 99.2 84 20 119/77 92 Nasal 4 Cannula 12/24 1999 99.2 84 20 119/77 92 12/23 1821 4LPM Intake & Output 12/24 0700 / 2300 12/23 1500 Intake Total 712 044 9298 Output Total 401 750 800 Balance -177 -350 200 Current Medications Sig/Cal Start time Last Medication Dose Route Stop Time Status Admin Torsemide 20 MG BID 12/25 899 AC PO Allopurinol 200 MG QDAY 12/24 0900 AC 12/24 PO 0938 Finasteride 5 MG QDAY 12/23 1045 AC 12/24 PO 0938 Guaifenesin 1,200 MG BIDPRN PRN 12/23 0200 AC 12/23 PO 0435 Tamsulosin HCl 0.4 MG QDAY@1800 12/22 1800 AC 12/23 PO 1749 Enoxaparin Sodium 30 MG QDAY 12/22 899 I 12/24 SC 0939 Bumetanide 10 MG .Q20H 12/22 0700 DC 12/23 Sodium Chloride 100 ML IV 2314 Dextrose/Water 125 ML PRN PRN 12/22 0645 AC IV Dextrose/Water 250 ML PRN PRN 12/22 0645 AC IV Insulin Human Lispro See Dose SS PRN 12/22 06 AC 12/24 Insts (1) SC 1221 Albuterol Sulfate 3 ML Q4H SVN PROTOCOL 12/21 2200 AC 12/24 IH 1500 Carvedilol 6.25 MG BID 12/21 2100 AC 12/24 PO 0938 Melatonin 1 MG DAILY@12/21 AC 12/21 PO 2138 Albuterol Sulfate 3 ML PRN SVN PROTOCOL PRN 12/21 1900 AC IH Acetaminophen 650 MG Q6HPRN PRN 12/21 184 AC PO Al Hydrox/Mg Hydrox/ 30 ML Q6HPRN PRN 12/21 184 AC Simethicone PO Docusate Sodium 100 MG HSPRN PRN 12/21 184 AC 12/24 PO 0937 Hydralazine HCl 10 MG Q4HPRN PRN 12/21 184 AC IV Magnesium Hydroxide 30 ML QDPRN PRN 12/21 184 AC PO Ondansetron HCl 4 MG Q4HPRN PRN 12/21 184 AC IV Sodium Chloride 20 ML PRN PRN 12/21 1845 AC 12/22 IV 1028 Dose Instructions: (1)Insulin Human Lispro: PER SLIDING SCALE Orders Procedure Date/time Status COMPLETE BLOOD COUNT 12/26 399 Active BASIC METABOLIC PANEL 12/26 399 Active GLUCOSE FS 12/24 1648 Complete GLUCOSE FS 12/24 1124 Complete GLUCOSE FS 12/23 2115 Complete Problems Problems Current Problems 1. Acute kidney injury superimposed on CKD 2. Heart failure Plan Plans Additional Comments renal failure discussed withthe renal team off the gtt and onq 122 lasix may need idalysis no need for cath at this anurag <Electronically signed by TRISTAN ALEXANDER D.O.> 12/24/22 1719 TRISTAN ALEXANDER D.O. << Signature on File>> Reported By: TRISTAN ALEXANDER D.O. Signed By: TRISTAN ALEXANDER D.O. Tests performed at: [address] [address] [place] [address] NEPHROLOGY PROGRESS NOTES Patient: PETE CONLEY JAMES M M.D. [id number] [age] M Status: ADM IN [facility] 2076-A Report Date & Time: 12/24/22 1339 Subjective * Please Note: All systems reviewed and all are negative except systems noted. Pt seen and examined. ABdomen CT scan 1. Enlarged prostate gland with mass effect upon the urinary bladder base. Definite urinary bladder mass is not seen and ultrasound findings thought to represent an enlarged prostate. Consider further evaluation with cystogram. 2. Small bilateral pleural effusions with associated compressive atelectasis. Left lower lobe atelectasis or pneumonia. 3. Nonobstructing bilateral renal calculi. 4. Cholelithiasis without evidence of cholecystitis. Objective Focused Exam Performed General Appearance Alert Lungs Clear to Auscultation Cardiovascular NSR Abdomen Normal Bowel Sounds Extremities Edema Reviewed - Daily Labs/Vitals/Meds/Orders Hematology Range/Units 12/24 0500 Hematology WBC 4.5 - 10.0 x10(3) 6.5 RBC 4.80 - 5.50 x10(6) 3.72 L Hgb 14.0 - 17.2 g/dL 12.1 L Hct 42.0 - 51.0 % 36.1 L MCV 80.0 - 94.0 fl 97.2 H MCH 28.8 - 32.2 pg 32.6 H MCHC 33.0 - 36.0 g/dL 33.5 RDW 12.7 - 15.3 % 14.9 Plt Count 150 - 450 X10(3) 117 L MPV 7.4 - 9.2 fl 8.5 Neut % (Auto) 45.0 - 73.0 % 66.1 Lymph % (Auto) 16.0 - 48.0 % 10.3 L Addison % (Auto) 4.3 - 11.2 % 17.8 H Eos % (Auto) 0.5 - 4.9 % 5.1 H Baso % (Auto) 0.0 - 1.0 % 0.7 Neut # (Auto) 1.40 - 6.50 x10(3) 4.30 Lymph # (Auto) 1.00 - 3.50 x10(3) 0.70 L Addison # (Auto) 0.30 - 0.80 x10(3) 1.20 H Eos # (Auto) 0.00 - 0.54 x10(3) 0.30 Baso # (Auto) 0.00 - 0.10 x10(3) 0.00 Chemistry Range/Units 12/24 12/24 12/23 1124 0500 2115 Chemistry Sodium 135 - 145 mmol/L 140 Potassium 3.5 - 5.0 mmol/L 4.6 Chloride 98 - 107 mmol/L 101 Carbon Dioxide 22 - 29 mmol/L 26 Anion Gap 15 - 22 mmol/L 17.6 BUN 8 - 23 mg/dL 79 H Creatinine 0.70 - 1.20 mg/dL 4.00 H Est GFR ( Amer) 18 Est GFR (Non-Af Amer) 15 Glucose 82 - 115 mg/dL 155 H POC Glucose 70 - 110 mg/dL 189 H 149 H Calcium 8.8 - 10.2 mg/dL 8.0 L Total Bilirubin 0.2 - 1.2 mg/dL 0.5 Direct Bilirubin 0.0 - 0.3 mg/dL <0.2 AST 5 - 40 U/L 21 ALT 5 - 41 U/L 10 Alkaline Phosphatase 40 - 130 U/L 83 Total Protein 6.4 - 8.3 g/dL 6.0 L Albumin 3.5 - 5.2 g/dL 3.3 L Globulin 1.5 - 4.5 g/dL 2.7 Albumin/Globulin Ratio 1.1 - 2.5 1.22 Range/Units / 1629 Chemistry POC Glucose 70 - 110 mg/dL 121 H Vital Signs Date Time Temp Pulse Resp B/P B/P Pulse O2 O2 Flow FiO2 Mean Ox Delivery Rate 12/24 1207 98.0 85 20 147/61 97 / 1050 4L 12/24 0938 81 170/83 12/24 0804 98.5 81 21 170/83 98 12/24 07 45% 12/24 699 45% 12/24 699 98 45% 12/24 699 98 / 0330 99.2 78 22 167/78 97 C-Pap 10 / 0227 40 / 0227 94 / 2320 99.5 80 21 132/82 95 C-Pap 10 / 2207 40 / 2207 93 05/ 2125 84 119/77 05/06 2100 99.2 84 20 119/77 92 Nasal 4 Cannula / 2100 99.2 84 20 119/77 92 Nasal 4 Cannula / 2000 99.2 84 20 119/77 92 05/06 1821 4LPM / 1633 99.3 81 18 142/73 90 05/06 1423 3L Intake & Output 12/24 07/ 2300 05/ 1500 Intake Total 933 635 4802 Output Total 401 750 800 Balance -177 -350 200 Current Medications Sig/Cal Start time Last Medication Dose Route Stop Time Status Admin Allopurinol 200 MG QDAY 12/24 0900 AC 12/24 PO 38 Finasteride 5 MG QDAY 12/23 1045 AC 12/24 PO 38 Guaifenesin 1,200 MG BIDPRN PRN 12/23 0200 AC 12/23 PO 0435 Tamsulosin HCl 0.4 MG QDAY@1800 12/22 1800 AC 12/23 PO 1749 Enoxaparin Sodium 30 MG QDAY 12/22 0900 I 12/24 SC 0939 Bumetanide 10 MG .Q20H 12/22 0700 AC 12/23 Sodium Chloride 100 ML IV 2314 Dextrose/Water 125 ML PRN PRN 12/22 0645 AC IV Dextrose/Water 250 ML PRN PRN 12/22 0645 AC IV Insulin Human Lispro See Dose SS PRN 12/22 0645 AC 12/24 Insts (1) SC 1221 Albuterol Sulfate 3 ML Q4H SVN PROTOCOL 12/21 2200 AC 12/24 IH 1050 Carvedilol 6.25 MG BID 12/21 2099 AC 12/24 PO 0938 Melatonin 1 MG DAILY@12/21 AC 12/21 PO 2138 Albuterol Sulfate 3 ML PRN SVN PROTOCOL PRN 12/21 1900 AC IH Acetaminophen 650 MG Q6HPRN PRN 12/21 184 AC PO Al Hydrox/Mg Hydrox/ 30 ML Q6HPRN PRN 12/21 184 AC Simethicone PO Docusate Sodium 100 MG HSPRN PRN 12/21 1845 AC 12/24 PO 0937 Hydralazine HCl 10 MG Q4HPRN PRN 12/21 1845 AC IV Magnesium Hydroxide 30 ML QDPRN PRN / 184 AC PO Ondansetron HCl 4 MG Q4HPRN PRN 12/21 184 AC IV Sodium Chloride 20 ML PRN PRN 12/21 1845 AC 12/22 IV 1028 Dose Instructions: (1)Insulin Human Lispro: PER SLIDING SCALE Orders Procedure Date/time Status GLUCOSE FS 12/24 1124 Complete GLUCOSE FS 12/23 2115 Complete GLUCOSE FS 12/23 1629 Complete Problems Problems Current Problems 1. Acute congestive heart failure 2. MACY (obstructive sleep apnea) 3. CKD (chronic kidney disease), stage III 4. Acute kidney injury superimposed on CKD 5. DM2 (diabetes mellitus, type 2) 6. Essential (primary) hypertension Plan Plans Additional Comments Renal function worse. Volume status improved. DC bumex gtt start scheduled oral diuretics. Plan for oupt PD initiation. follow labs. See orders. <Electronically signed by CANDIDA RUSS M.D.> 12/24/22 1342 __ CANDIDA RUSS M.D. << Signature on File>> Reported By: CANDIDA RUSS M.D. Signed By: CANDIDA RUSS M.D. Tests performed at: [address] [address] [place] [address] PROGRESS NOTES Patient: JARVISPETE TIKAL M.D. [id number] [age] M [facility] Report Date & Time: 12/24/22 1114 Subjective Date/Time Of Evaluation Date 12/24/22 Time 1114 * Please Note: Patient examined at bedside. Paitent is alert, oriented*3. Denies any complaints. All systems reviewed and all are negative except systems noted. Review of Systems Constitutional Weakness, Malaise/Fatigue. Denies: Body Aches, Pain, Chills, Fever. Eyes Denies: Diplopia, Glaucoma, Photophobia, Change in Visual Acuity. ENT Denies: Ear Pain, Ear Discharge/Wax, Chronic Ear Infections, Tinnitus, Hearing Loss, Nasal Pain, Nasal Discharge. Cardiovascular CHF. Denies: Arrhythmia, Cardiomyopathy, Claudication, Cyanosis, Dizziness. Pulmonary Denies: Cough, Hemoptysis, Orthopnea, Pleuritic Chest Pain, Sputum Production, Short of Breath. Gastrointestinal Denies: Nausea, Vomiting, Abdominal Pain, Constipation. Genitourinary Denies: Dysuria, Frequency, Incontinence. Musculoskeletal Denies: Arthralgias, Intermittent Claudication, Myalgia. Skin Denies: Ecchymosis, Eczema, Lesions. Neurological Denies: Ataxia, CVA, Dysphagia, Epilepsy. Psych/Social Issues Denies: Anxiety, Depression, Hallucinations. Endocrine Denies: Polyphagia, Polyuria. Hemo/Lymph Denies: Excessive Bleeding, Blood/Clotting Disorder. Allergy/Immuno Denies: Recurrent Infections, IVDA. All Other Systems Other systems reviewed and are negative. Objective Focused Exam Performed General Appearance Alert, Oriented X3, Cooperative, Appears Stated Age, No Acute Distress HEENT Atraumatic, PERRLA, Mucous Membr. moist/pink, WNL Lungs Clear to Auscultation, Normal Air Movement Neck Supple, No Thryomegaly, +2 Carotid Pulse wo Bruit Cardiovascular NSR, Normal S1, S2 Abdomen Normal Bowel Sounds, Soft, No Hepatospenomegaly, Obese Extremities Edema, Normal Pulses, Tenderness/Swelling Skin No Rashes, No Breakdown, No Significant Lesion Neurological Normal Speech, Strength at 5/5 X4 Ext, Normal Tone, Sensation Intact, Cranial Nerves 2-12 NL Psych/Mental Status Normal Mood, Pleasant Endocrine WNL Physical Therapy Ambulated Nutrition PO Restraints Restraints No restraint needed Reviewed - Daily Reviewed Information Medications, Consults, Labs Labs/Vitals/Meds/Orders Hematology Range/Units 12/24 0500 Hematology WBC 4.5 - 10.0 x10(3) 6.5 RBC 4.80 - 5.50 x10(6) 3.72 L Hgb 14.0 - 17.2 g/dL 12.1 L Hct 42.0 - 51.0 % 36.1 L MCV 80.0 - 94.0 fl 97.2 H MCH 28.8 - 32.2 pg 32.6 H MCHC 33.0 - 36.0 g/dL 33.5 RDW 12.7 - 15.3 % 14.9 Plt Count 150 - 450 X10(3) 117 L MPV 7.4 - 9.2 fl 8.5 Neut % (Auto) 45.0 - 73.0 % 66.1 Lymph % (Auto) 16.0 - 48.0 % 10.3 L Addison % (Auto) 4.3 - 11.2 % 17.8 H Eos % (Auto) 0.5 - 4.9 % 5.1 H Baso % (Auto) 0.0 - 1.0 % 0.7 Neut # (Auto) 1.40 - 6.50 x10(3) 4.30 Lymph # (Auto) 1.00 - 3.50 x10(3) 0.70 L Addison # (Auto) 0.30 - 0.80 x10(3) 1.20 H Eos # (Auto) 0.00 - 0.54 x10(3) 0.30 Baso # (Auto) 0.00 - 0.10 x10(3) 0.00 Chemistry Range/Units 12/24 12/23 12/23 0500 2115 1629 Chemistry Sodium 135 - 145 mmol/L 140 Potassium 3.5 - 5.0 mmol/L 4.6 Chloride 98 - 107 mmol/L 101 Carbon Dioxide 22 - 29 mmol/L 26 Anion Gap 15 - 22 mmol/L 17.6 BUN 8 - 23 mg/dL 79 H Creatinine 0.70 - 1.20 mg/dL 4.00 H Est GFR ( Amer) 18 Est GFR (Non-Af Amer) 15 Glucose 82 - 115 mg/dL 155 H POC Glucose 70 - 110 mg/dL 149 H 121 H Calcium 8.8 - 10.2 mg/dL 8.0 L Total Bilirubin 0.2 - 1.2 mg/dL 0.5 Direct Bilirubin 0.0 - 0.3 mg/dL <0.2 AST 5 - 40 U/L 21 ALT 5 - 41 U/L 10 Alkaline Phosphatase 40 - 130 U/L 83 Total Protein 6.4 - 8.3 g/dL 6.0 L Albumin 3.5 - 5.2 g/dL 3.3 L Globulin 1.5 - 4.5 g/dL 2.7 Albumin/Globulin Ratio 1.1 - 2.5 1.22 Range/Units 12/23 1143 Chemistry POC Glucose 70 - 110 mg/dL 222 H Vital Signs Date Time Temp Pulse Resp B/P B/P Pulse O2 O2 Flow FiO2 Mean Ox Delivery Rate 12/24 1050 4L 12/24 0938 81 170/83 12/24 0804 98.5 81 21 170/83 98 12/24 07 45% 12/24 699 45% 12/24 699 98 45% 12/24 699 98 12/24 0330 99.2 78 22 167/78 97 C-Pap 10 12/24 0227 40 12/24 022 94 / 2320 99.5 80 21 132/82 95 C-Pap 10 12/237 40 / 2207 93 / 2125 84 119/77 05/ 2100 99.2 84 20 119/77 92 Nasal 4 Cannula 12/23 2100 99.2 84 20 119/77 92 Nasal 4 Cannula 12/24 1999 99.2 84 20 119/77 92 / 1821 4LPM / 1633 99.3 81 18 142/73 90 / 1423 3L 12/23 1221 97.3 76 20 156/68 95 Intake & Output 12/24 0700 12/23 2300 05/ 1500 Intake Total 237 164 4286 Output Total 401 750 800 Balance -177 -350 200 Current Medications Sig/Cal Start time Last Medication Dose Route Stop Time Status Admin Allopurinol 200 MG QDAY 12/24 0900 AC 12/24 PO 0938 Finasteride 5 MG QDAY 12/23 1045 AC 12/24 PO 0938 Guaifenesin 1,200 MG BIDPRN PRN 12/23 0200 AC 12/23 PO 0435 Tamsulosin HCl 0.4 MG QDAY@1800 12/22 1800 AC 12/23 PO 1749 Allopurinol 300 MG DAILY 12/22 899 DC 12/23 PO 0907 Enoxaparin Sodium 30 MG QDAY 12/22 09 I 12/24 SC 0939 Bumetanide 10 MG .Q20H 12/22 07 AC 12/23 Sodium Chloride 100 ML IV 2314 Dextrose/Water 125 ML PRN PRN 12/22 644 AC IV Dextrose/Water 250 ML PRN PRN 12/22 0645 AC IV Insulin Human Lispro See Dose SS PRN 12/22 06 AC 12/24 Insts (1) SC 0641 Albuterol Sulfate 3 ML Q4H SVN PROTOCOL 12/21 2200 AC 12/24 IH 1050 Carvedilol 6.25 MG BID 12/21 2100 AC 12/24 PO 0938 Melatonin 1 MG DAILY@12/21 AC 12/21 PO 2138 Albuterol Sulfate 3 ML PRN SVN PROTOCOL PRN 12/21 1900 AC IH Acetaminophen 650 MG Q6HPRN PRN 12/21 184 AC PO Al Hydrox/Mg Hydrox/ 30 ML Q6HPRN PRN 12/21 184 AC Simethicone PO Docusate Sodium 100 MG HSPRN PRN 12/21 184 AC 12/24 PO 0937 Hydralazine HCl 10 MG Q4HPRN PRN 12/21 184 AC IV Magnesium Hydroxide 30 ML QDPRN PRN 12/21 1844 AC PO Ondansetron HCl 4 MG Q4HPRN PRN 12/21 1844 AC IV Sodium Chloride 20 ML PRN PRN 12/21 1844 AC 12/22 IV 1028 Dose Instructions: (1)Insulin Human Lispro: PER SLIDING SCALE Orders Procedure Date/time Status HEPATIC PANEL 12/25 399 Complete COMPLETE BLOOD COUNT 12/25 399 Complete BASIC METABOLIC PANEL 12/25 399 Complete GLUCOSE FS 12/23 2115 Complete GLUCOSE FS 12/23 1629 Complete GLUCOSE FS 12/23 1143 Complete Bladder Scan 12/23 UNK Active Problems Problems Current Problems 1. Acute congestive heart failure Assessment/Plan Patient presented with increasing SOB and edema On bumex drip Now started to make good urine Plan Fluid restirction to 1800 ml per day Renal diet CONTINUE bumex drip 2. Acute kidney injury superimposed on CKD Assessment/Plan Creat 4; slightly more than her last year bsaleine ogf 2.89 Made 2450 ml urine yesterday Plan CONTINUE bumex drip FOLLOW nephrology recommendations 3. BPH (benign prostatic hyperplasia) Assessment/Plan Has a large prostate causing mass effect on bladder base as per the CT abdomen report today Plan CONTINUE tamsulosin 0.4 mg nightly CONTINUE finasteride 5 mg daily 4. Essential (primary) hypertension Assessment/Plan BP in acceptable range Plan CONTINUE carvidelol 6.25 mg BiD 5. DM2 (diabetes mellitus, type 2) Assessment/Plan FS in acceptable range Plan CONTINUE sliding scale insulin 6. MACY (obstructive sleep apnea) Assessment/Plan Can use CPAP at night 7. Morbid obesity Assessment/Plan BMI 37.4 Plan Diet and calorie restriction Defer further management to PCP on discharge Recent Orders My Orders (without Meds) Procedure Date/time Status HEPATIC PANEL 12/25 399 Complete COMPLETE BLOOD COUNT 12/25 399 Complete BASIC METABOLIC PANEL 12/25 399 Complete Plan Plans Activity Out of Bed, Increase Ambulation Diet Continue Current Nursing No change in orders Medications/IV Plans Continue Current Meds Diagnostics Labs Ordered Condition Improving/Stable Disposition Stepdown Time Spent 40 minutes Quality DVT Prophylaxis addressed, GI Prophylaxis addressed <Electronically signed by LAUREN HUTCHINSON M.D.> 12/24/22 1116 LAUREN HUTCHINSON M.D. << Signature on File>> Reported By: LAUREN HUTCHINSON M.D. Signed By: LAUREN HUTCHINSON M.D. Tests performed at: [address] [address] [place] [address] QUICK NOTE Patient: PETE CONLEY TRISTAN ALEXANDER D.O. [id number] M [facility] Report Date & Time: 12/23/22 1437 Change Of Status Additional Notes I reviewed the chart early am today which involved reviewing consultations, lab work and vitals. Later in the day I saw the patient [id number] greater than 15 minutes. I did my own examination. Formed my own differential diagnosis. Spent time with the patient answering questions and providing a plan for the day. I was able to finalize a disposition, assement, and plan for the day. EXAM: Symmetrical facies sitting up in the chair awake alert eating breakfast No gallop no rub PMI displaced laterally positive heave Extremities still 2+ edema Calves soft nontender ASSESMENT and PLAN: ... Anasarca: Patient on Bumex drip. Output has not been spectacular. Creatinine has gone 3.4-3.9. I have discussed the case with nephro We will continue current Bumex drip Patient may need a heart catheterization this was discussed with the hospitalist. We will go ahead and schedule this after the patient is on dialysis Patient off for CAT scan to look for bladder mass. The care of the patient has been completed over several ways and multiple times throughout the day. Collaboration with the hospitalist and nursing staff and I was also completed throughout the day. the majority of the medical decsion process was my own. Total time with the patient for the entire cardiac team was greater than 30 monites <Electronically signed by TRISTAN ALEXANDER D.O.> 12/24/22 1720 TRISTAN ALEXANDER D.O. << Signature on File>> Reported By: TRISTAN ALEXANDER D.O. Signed By: TRISTAN ALEXANDER D.O. Tests performed at: [address] [address] [place] [address] NEPHROLOGY PROGRESS NOTES Patient: JARVISCANDIDA YOUNG M.D. [id number] [age] M Status: ADM IN [facility] 2075-A Report Date & Time: 12/23/22 1208 Subjective * Please Note: All systems reviewed and all are negative except systems noted. Pt seen and examined. ABdomen CT scan 1. Enlarged prostate gland with mass effect upon the urinary bladder base. Definite urinary bladder mass is not seen and ultrasound findings thought to represent an enlarged prostate. Consider further evaluation with cystogram. 2. Small bilateral pleural effusions with associated compressive atelectasis. Left lower lobe atelectasis or pneumonia. 3. Nonobstructing bilateral renal calculi. 4. Cholelithiasis without evidence of cholecystitis. Objective Focused Exam Performed General Appearance Alert Lungs Clear to Auscultation Cardiovascular NSR Abdomen Normal Bowel Sounds Extremities Normal Pulses Reviewed - Daily Labs/Vitals/Meds/Orders Hematology Range/Units 12/23 0411 Hematology WBC 4.5 - 10.0 x10(3) 5.6 RBC 4.80 - 5.50 x10(6) 3.70 L Hgb 14.0 - 17.2 g/dL 11.9 L Hct 42.0 - 51.0 % 36.5 L MCV 80.0 - 94.0 fl 98.7 H MCH 28.8 - 32.2 pg 32.3 H MCHC 33.0 - 36.0 g/dL 32.7 L RDW 12.7 - 15.3 % 15.5 H Plt Count 150 - 450 X10(3) 112 L MPV 7.4 - 9.2 fl 9.0 Neut % (Auto) 45.0 - 73.0 % 64.0 Lymph % (Auto) 16.0 - 48.0 % 13.2 L Addison % (Auto) 4.3 - 11.2 % 17.9 H Eos % (Auto) 0.5 - 4.9 % 4.3 Baso % (Auto) 0.0 - 1.0 % 0.6 Neut # (Auto) 1.40 - 6.50 x10(3) 3.60 Lymph # (Auto) 1.00 - 3.50 x10(3) 0.70 L Addison # (Auto) 0.30 - 0.80 x10(3) 1.00 H Eos # (Auto) 0.00 - 0.54 x10(3) 0.20 Baso # (Auto) 0.00 - 0.10 x10(3) 0.00 Chemistry Range/Units 12/23 12/23 1143 0411 Chemistry POC Glucose 70 - 110 mg/dL 222 H Parathyroid Hormone 15 - 65 pg/mL 117.8 H Range/Units 12/23 12/22 0411 2043 Chemistry Sodium 135 - 145 mmol/L 140 Potassium 3.5 - 5.0 mmol/L 4.9 Chloride 98 - 107 mmol/L 103 Carbon Dioxide 22 - 29 mmol/L 23 Anion Gap 15 - 22 mmol/L 18.9 BUN 8 - 23 mg/dL 65 H Creatinine 0.70 - 1.20 mg/dL 3.96 H Est GFR ( Amer) 18 Est GFR (Non-Af Amer) 15 Glucose 82 - 115 mg/dL 136 H POC Glucose 70 - 110 mg/dL 195 H Calcium 8.8 - 10.2 mg/dL 8.0 L Magnesium 1.6 - 2.4 mg/dL 1.5 L Total Bilirubin 0.2 - 1.2 mg/dL 0.3 AST 5 - 40 U/L 23 ALT 5 - 41 U/L 9 Alkaline Phosphatase 40 - 130 U/L 79 Total Protein 6.4 - 8.3 g/dL 6.0 L Albumin 3.5 - 5.2 g/dL 3.2 L Globulin 1.5 - 4.5 g/dL 2.8 Albumin/Globulin Ratio 1.1 - 2.5 1.14 Vital Signs Date Time Temp Pulse Resp B/P B/P Pulse O2 O2 Flow FiO2 Mean Ox Delivery Rate 12/23 1105 3L 05/ 0907 77 148/67 05/ 0830 99.3 77 21 148/67 98 05/06 0825 Nasal 3 Cannula 12/23 0700 40 05/ 0700 40 / 0700 93 40 / 0700 93 05/ 0357 98.8 75 18 139/65 97 C-Pap 05/ 0217 40 05/ 0214 98 05/ 0006 99 05/05 2353 99.4 91 20 164/82 96 Nasal 3 Cannula 12/22 2216 3L 05/ 2104 99.3 85 20 141/68 94 05/05 2101 85 141/68 05/05 2044 85 141/68 05/05 2038 99.3 87 20 183/88 94 05/05 2021 98.0 88 22 160/79 99 05/05 1823 3L 05/05 1540 98.1 83 20 142/70 98 05/05 1424 4LPM 05/05 1224 98.9 83 20 137/69 95 Intake & Output 12/23 0700 05/05 2300 05 1500 Intake Total 235 380 460 Output Total 900 550 Balance -665 380 -90 Current Medications Sig/Cal Start time Last Medication Dose Route Stop Time Status Admin Finasteride 5 MG QDAY 12/23 1045 AC 12/23 PO 1141 Guaifenesin 1,200 MG BIDPRN PRN 12/23 0200 AC 12/23 PO 0435 Tamsulosin HCl 0.4 MG QDAY@1800 12/22 1800 AC 12/22 PO 1818 Sodium Polystyrene 15 GM ONCE ONE 12/22 1230 DC 12/22 Sulfonate PO 12/22 1231 1245 Allopurinol 300 MG DAILY 12/22 0900 I 12/23 PO 0907 Enoxaparin Sodium 30 MG QDAY 12/22 0900 I 12/23 SC 0908 Glipizide 10 MG BIDAC 12/22 0730 DC PO Bumetanide 10 MG .Q20H 12/22 0700 AC 12/23 Sodium Chloride 100 ML IV 0403 Dextrose/Water 125 ML PRN PRN 12/22 0645 AC IV Dextrose/Water 250 ML PRN PRN 12/22 0645 AC IV Insulin Human Lispro See Dose SS PRN 12/22 0645 AC 12/23 Insts (1) SC 1143 Albuterol Sulfate 3 ML Q4H SVN PROTOCOL 12/21 2200 AC 12/23 IH 1101 Carvedilol 6.25 MG BID 12/21 2100 AC 12/23 PO 0907 Melatonin 1 MG DAILY@12/21 AC 12/21 PO 2138 Albuterol Sulfate 3 ML PRN SVN PROTOCOL PRN 12/21 1900 AC IH Acetaminophen 650 MG Q6HPRN PRN 12/21 184 AC PO Al Hydrox/Mg Hydrox/ 30 ML Q6HPRN PRN 12/21 184 AC Simethicone PO Docusate Sodium 100 MG HSPRN PRN 12/21 184 AC PO Hydralazine HCl 10 MG Q4HPRN PRN 12/21 184 AC IV Magnesium Hydroxide 30 ML QDPRN PRN 12/21 184 AC PO Ondansetron HCl 4 MG Q4HPRN PRN 12/21 184 AC IV Sodium Chloride 20 ML PRN PRN 12/21 184 AC 12/22 IV 1028 Dose Instructions: (1)Insulin Human Lispro: PER SLIDING SCALE Orders Procedure Date/time Status GLUCOSE FS 12/23 1143 Complete GLUCOSE FS 12/22 204 Complete GLUCOSE FS 12/22 1201 Complete PT THER PRO THE EXERCISE EA 15 12/22 UNK Complete PT EVALUATION: MOD COMPLEXITY 12/22 UNK Complete THER PROC GAIT TRAIN EA 15 MIN 12/22 UNK Complete Problems Problems Current Problems 1. Acute congestive heart failure 2. MACY (obstructive sleep apnea) 3. CKD (chronic kidney disease), stage III 4. Acute kidney injury superimposed on CKD 5. DM2 (diabetes mellitus, type 2) 6. Essential (primary) hypertension Plan Plans Additional Comments Renal function worse. Urine output marginal on Bumex gtt. CT results noted. Pt might need a peña catheter, await urlogy input. Continue with bumex gtt for now. Follow labs. See orders. <Electronically signed by CANDIDA RUSS M.D.> 12/23/22 1211 __ CANDIDA RUSS M.D. << Signature on File>> Reported By: CANDIDA RUSS M.D. Signed By: CANDIDA RUSS M.D. Tests performed at: [address] [address] [place] [address] PROGRESS NOTES Patient: PETE CONLEY FAREEDLAUREN M.D. [id number] [age] M Status: ADM IN [facility] Report Date & Time: 12/23/22 1028 Subjective Date/Time Of Evaluation Date 12/23/22 Time 1028 * Please Note: Patient examined at bedside. Paitent is alert, oriented*3. Denies any complaints. All systems reviewed and all are negative except systems noted. Review of Systems Constitutional Denies: Body Aches, Pain, Chills, Fever, Weakness, Malaise/Fatigue. Eyes Denies: Diplopia, Glaucoma, Photophobia. ENT Denies: Ear Discharge/Wax, Chronic Ear Infections, Tinnitus, Hearing Loss. Cardiovascular Denies: Arrhythmia, CHF, Cardiomyopathy, Claudication, Cyanosis. Pulmonary Denies: Cough, Hemoptysis, Orthopnea, Pleuritic Chest Pain, PND, Sputum Production, Short of Breath. Gastrointestinal Denies: Nausea, Vomiting, Abdominal Pain, Constipation. Genitourinary Denies: Dysuria, Frequency, Incontinence, Hematuria. Musculoskeletal Denies: Arthralgias, Intermittent Claudication, Myalgia. Skin Denies: Ecchymosis, Eczema, Lesions. Neurological Denies: Ataxia, CVA, Dysphagia, Epilepsy. Psych/Social Issues Denies: Anxiety, Depression, Hallucinations. Endocrine Denies: Polyphagia, Polyuria. Hemo/Lymph Denies: Excessive Bleeding, Blood/Clotting Disorder. Allergy/Immuno Denies: Recurrent Infections, IVDA. All Other Systems Other systems reviewed and are negative. Objective Focused Exam Performed General Appearance Alert, Oriented X3, Cooperative, Appears Stated Age, No Acute Distress HEENT Atraumatic, PERRLA, Mucous Membr. moist/pink, WNL Lungs Clear to Auscultation, Normal Air Movement Neck Supple, No Thryomegaly, +2 Carotid Pulse wo Bruit Cardiovascular NSR, Normal S1, S2 Abdomen Normal Bowel Sounds, Soft, No Hepatospenomegaly, Obese Extremities Edema, Normal Pulses, Tenderness/Swelling Skin No Rashes, No Breakdown, No Significant Lesion Neurological Normal Speech, Strength at 5/5 X4 Ext, Normal Tone, Sensation Intact, Cranial Nerves 2-12 NL Psych/Mental Status Normal Mood, Pleasant Endocrine WNL Physical Therapy Ambulated Nutrition PO Restraints Restraints No restraint needed Reviewed - Daily Reviewed Information Medications, Consults, H&P, Labs Labs/Vitals/Meds/Orders Hematology Range/Units 12/23 410 Hematology WBC 4.5 - 10.0 x10(3) 5.6 RBC 4.80 - 5.50 x10(6) 3.70 L Hgb 14.0 - 17.2 g/dL 11.9 L Hct 42.0 - 51.0 % 36.5 L MCV 80.0 - 94.0 fl 98.7 H MCH 28.8 - 32.2 pg 32.3 H MCHC 33.0 - 36.0 g/dL 32.7 L RDW 12.7 - 15.3 % 15.5 H Plt Count 150 - 450 X10(3) 112 L MPV 7.4 - 9.2 fl 9.0 Neut % (Auto) 45.0 - 73.0 % 64.0 Lymph % (Auto) 16.0 - 48.0 % 13.2 L Addison % (Auto) 4.3 - 11.2 % 17.9 H Eos % (Auto) 0.5 - 4.9 % 4.3 Baso % (Auto) 0.0 - 1.0 % 0.6 Neut # (Auto) 1.40 - 6.50 x10(3) 3.60 Lymph # (Auto) 1.00 - 3.50 x10(3) 0.70 L Addison # (Auto) 0.30 - 0.80 x10(3) 1.00 H Eos # (Auto) 0.00 - 0.54 x10(3) 0.20 Baso # (Auto) 0.00 - 0.10 x10(3) 0.00 Chemistry Range/Units 12/231 0411 Chemistry Sodium 135 - 145 mmol/L 140 Potassium 3.5 - 5.0 mmol/L 4.9 Chloride 98 - 107 mmol/L 103 Carbon Dioxide 22 - 29 mmol/L 23 Anion Gap 15 - 22 mmol/L 18.9 BUN 8 - 23 mg/dL 65 H Creatinine 0.70 - 1.20 mg/dL 3.96 H Est GFR ( Amer) 18 Est GFR (Non-Af Amer) 15 Glucose 82 - 115 mg/dL 136 H Calcium 8.8 - 10.2 mg/dL 8.0 L Magnesium 1.6 - 2.4 mg/dL 1.5 L Total Bilirubin 0.2 - 1.2 mg/dL 0.3 AST 5 - 40 U/L 23 ALT 5 - 41 U/L 9 Alkaline Phosphatase 40 - 130 U/L 79 Total Protein 6.4 - 8.3 g/dL 6.0 L Albumin 3.5 - 5.2 g/dL 3.2 L Globulin 1.5 - 4.5 g/dL 2.8 Albumin/Globulin Ratio 1.1 - 2.5 1.14 Parathyroid Hormone 15 - 65 pg/mL 117.8 H Range/Units 05/ 05/ 2043 1201 Chemistry POC Glucose 70 - 110 mg/dL 195 H 159 H Vital Signs Date Time Temp Pulse Resp B/P B/P Pulse O2 O2 Flow FiO2 Mean Ox Delivery Rate 12/23 0907 77 148/67 05/06 0830 99.3 77 21 148/67 98 05/06 0700 40 05/06 0700 40 05/06 0700 93 40 05/06 0700 93 05/ 0357 98.8 75 18 139/65 97 C-Pap 05/ 0217 40 05/06 0214 98 05/06 0006 99 05/05 2353 99.4 91 20 164/82 96 Nasal 3 Cannula 05/05 2216 3L 05/2103 99.3 85 20 141/68 94 05/05 2101 85 141/68 05/05 2043 85 141/68 05/05 2037 99.3 87 20 183/88 94 05/05 2020 98.0 88 22 160/79 99 05/05 1823 3L 05/05 1540 98.1 83 20 142/70 98 05/05 1424 4LPM 05/05 1224 98.9 83 20 137/69 95 05/05 1042 5LPM Intake & Output 12/23 0700 12/22 2300 12/22 1500 Intake Total 235 380 460 Output Total 900 550 Balance -665 380 -90 Current Medications Sig/Cal Start time Last Medication Dose Route Stop Time Status Admin Guaifenesin 1,200 MG BIDPRN PRN 12/23 0200 AC 12/23 PO 0435 Tamsulosin HCl 0.4 MG QDAY@1800 12/22 1800 AC 12/22 PO 1818 Sodium Polystyrene 15 GM ONCE ONE 12/22 1230 DC 12/22 Sulfonate PO 12/22 1231 1245 Allopurinol 300 MG DAILY 12/22 0900 I 12/23 PO 0907 Enoxaparin Sodium 30 MG QDAY 12/22 09 I 12/23 SC 0908 Glipizide 10 MG BIDAC 12/22 07 DC PO Bumetanide 10 MG .Q20H 12/22 0700 AC 12/23 Sodium Chloride 100 ML IV 0403 Dextrose/Water 125 ML PRN PRN 12/22 06 AC IV Dextrose/Water 250 ML PRN PRN 12/22 0645 AC IV Insulin Human Lispro See Dose SS PRN 12/22 0645 AC 12/22 Insts (1) SC 204 Albuterol Sulfate 3 ML Q4H SVN PROTOCOL 12/21 2200 AC 12/23 IH 0656 Carvedilol 6.25 MG BID 12/21 2100 AC 12/23 PO 0907 Hydralazine HCl 50 MG TID 12/21 2100 DC 12/22 PO 1017 Melatonin 1 MG DAILY@12/21 AC 12/21 PO 2138 Albuterol Sulfate 3 ML PRN SVN PROTOCOL PRN 12/21 1900 AC IH Acetaminophen 650 MG Q6HPRN PRN 12/21 184 AC PO Al Hydrox/Mg Hydrox/ 30 ML Q6HPRN PRN 12/21 184 AC Simethicone PO Docusate Sodium 100 MG HSPRN PRN 12/21 184 AC PO Hydralazine HCl 10 MG Q4HPRN PRN 12/21 184 AC IV Magnesium Hydroxide 30 ML QDPRN PRN 12/21 184 AC PO Ondansetron HCl 4 MG Q4HPRN PRN 12/21 184 AC IV Sodium Chloride 20 ML PRN PRN 12/21 1845 AC 12/22 IV 1028 Dose Instructions: (1)Insulin Human Lispro: PER SLIDING SCALE Orders Procedure Date/time Status PTH (PARATHYROID HORM)-NO OR 12/23 0400 Complete COMPLETE BLOOD COUNT 12/23 040 Complete GLUCOSE FS 12/22 204 Complete GLUCOSE FS 12/22 1201 Complete PT: Initial Note Version 1 12/22 1122 Active Notify Consulting physician 12/22 1058 Active PT THER PRO THE EXERCISE EA 15 12/22 UNK Complete PT EVALUATION: MOD COMPLEXITY 12/22 UNK Complete THER PROC GAIT TRAIN EA 15 MIN 12/22 UNK Complete PHYSICIANS FOR CONSULT 12/22 UNK Active Problems Problems Current Problems 1. Acute congestive heart failure Assessment/Plan Patient presented with increasing SOB and edema On bumex drip Now started to make good urine Plan Fluid restirction to 1800 ml per day Renal diet CONTINUE bumex drip 2. Acute kidney injury superimposed on CKD Assessment/Plan Creat 3.96; slightly more than her last year bsaleine ogf 2.89 Made 1700 ml urine since today AM Plan CONTINUE bumex drip FOLLOW nephrology recommendations 3. BPH (benign prostatic hyperplasia) Assessment/Plan Has a large prostate causing mass effect on bladder base as per the CT abdomen report today Plan CONTINUE tamsulosin 0.4 mg nightly START finasteride 5 mg daily 4. Essential (primary) hypertension Assessment/Plan BP in acceptable range Plan CONTINUE carvidelol 6.25 mg BiD 5. DM2 (diabetes mellitus, type 2) Assessment/Plan FS in acceptable range Plan CONTINUE sliding scale insulin 6. MACY (obstructive sleep apnea) Assessment/Plan Can use CPAP at night 7. Morbid obesity Assessment/Plan BMI 37.4 Plan Diet and calorie restriction Defer further management to PCP on discharge Plan Plans Activity Out of Bed, Increase Ambulation Diet Continue Current Nursing No change in orders Medications/IV Plans Modify Medications, Continue Current Meds Diagnostics Labs Ordered Condition Improving/Stable Disposition Stepdown Time Spent 40 minutes Quality DVT Prophylaxis addressed, GI Prophylaxis addressed <Electronically signed by LAUREN HUTCHINSON M.D.> 12/23/22 1043 LAUREN HUTCHINSON M.D. << Signature on File>> Reported By: LAUREN HUTCHINSON M.D. Signed By: LAUREN HUTCHINSON M.D. Tests performed at: [address] [address] [place] [address] PROGRESS NOTES Patient: PETE CONLEY MELONIE DOUGLASS M.D. [id number] [id number] M Status: ADM IN [facility] Report Date & Time: 12/22/22 1207 Subjective Date/Time Of Evaluation Date 12/22/22 Time 0900 * Please Note: Patient seen and examined. Patient reports that he is feeling good. No new complaints. POC Rounding done with the Nurse [place] Fer[place]. All systems reviewed and all are negative except systems noted. Objective Focused Exam Performed General Appearance Alert, Oriented X3, Cooperative, No Acute Distress HEENT Atraumatic, PERRLA, Mucous Membr. moist/pink, WNL Lungs Crackles Neck Supple, No Thryomegaly, +2 Carotid Pulse wo Bruit Cardiovascular NSR, Normal S1, S2 Abdomen Normal Bowel Sounds, Soft, No Hepatospenomegaly, Obese, Mild lower abdominal tenderness Extremities Edema, Normal Pulses, Tenderness/Swelling Skin No Rashes, No Breakdown, No Significant Lesion Neurological Normal Speech, Strength at 5/5 X4 Ext, Normal Tone, Sensation Intact, Cranial Nerves 2-12 NL Psych/Mental Status Normal Mood, Pleasant Reviewed - Daily Reviewed Information Medications, Consults, Progress Notes, Vitals Labs/Vitals/Meds/Orders Hematology Range/Units 12/22 12/21 0408 1504 Hematology WBC 4.5 - 10.0 x10(3) 4.7 7.2 RBC 4.80 - 5.50 x10(6) 3.81 L 4.38 L Hgb 14.0 - 17.2 g/dL 12.1 L 13.8 L Hct 42.0 - 51.0 % 37.4 L 43.0 MCV 80.0 - 94.0 fl 98.0 H 98.0 H MCH 28.8 - 32.2 pg 31.8 31.6 MCHC 33.0 - 36.0 g/dL 32.4 L 32.2 L RDW 12.7 - 15.3 % 15.5 H 15.9 H Plt Count 150 - 450 X10(3) 117 L 131 L MPV 7.4 - 9.2 fl 8.5 8.8 Neut % (Auto) 45.0 - 73.0 % 75.4 H 89.3 H Lymph % (Auto) 16.0 - 48.0 % 11.8 L 2.2 L Addison % (Auto) 4.3 - 11.2 % 12.1 H 7.9 Eos % (Auto) 0.5 - 4.9 % 0.3 L 0.4 L Baso % (Auto) 0.0 - 1.0 % 0.4 0.2 Neut # (Auto) 1.40 - 6.50 x10(3) 3.50 6.40 Lymph # (Auto) 1.00 - 3.50 x10(3) 0.60 L 0.20 L Addison # (Auto) 0.30 - 0.80 x10(3) 0.60 0.60 Eos # (Auto) 0.00 - 0.54 x10(3) 0.00 0.00 Baso # (Auto) 0.00 - 0.10 x10(3) 0.00 0.00 Chemistry Range/Units 12/22 12/21 12/21 0408 1621 1504 Chemistry Sodium 135 - 145 mmol/L 138 Potassium 3.5 - 5.0 mmol/L 5.4 H Chloride 98 - 107 mmol/L 106 Carbon Dioxide 22 - 29 mmol/L 23 Anion Gap 15 - 22 mmol/L 14.4 L BUN 8 - 23 mg/dL 48 H Creatinine 0.70 - 1.20 mg/dL 3.47 H Est GFR ( Amer) 21 Est GFR (Non-Af Amer) 17 Glucose 82 - 115 mg/dL 96 Calcium 8.8 - 10.2 mg/dL 8.3 L Troponin T High Sens 6 - 12 ng/L 76.06 cH 47.40 H NT-Pro-B Natriuret Pep pg/mL 12564 Range/Units 12/21 1504 Chemistry Sodium 135 - 145 mmol/L 136 Potassium 3.5 - 5.0 mmol/L 5.4 H Chloride 98 - 107 mmol/L 103 Carbon Dioxide 22 - 29 mmol/L 21 L Anion Gap 15 - 22 mmol/L 17.4 BUN 8 - 23 mg/dL 46 H Creatinine 0.70 - 1.20 mg/dL 3.02 H Est GFR ( Amer) 25 Est GFR (Non-Af Amer) 20 Glucose 82 - 115 mg/dL 178 H Calcium 8.8 - 10.2 mg/dL 8.9 Total Bilirubin 0.2 - 1.2 mg/dL 0.9 Direct Bilirubin 0.0 - 0.3 mg/dL 0.3 AST 5 - 40 U/L 28 ALT 5 - 41 U/L 13 Alkaline Phosphatase 40 - 130 U/L 102 Troponin T High Sens 6 - 12 ng/L 47.95 H Total Protein 6.4 - 8.3 g/dL 7.2 Albumin 3.5 - 5.2 g/dL 3.9 Globulin 1.5 - 4.5 g/dL 3.3 Albumin/Globulin Ratio 1.1 - 2.5 1.18 Vital Signs Date Time Temp Pulse Resp B/P B/P Pulse O2 O2 Flow FiO2 Mean Ox Delivery Rate 05/05 1042 5LPM 05/05 1017 77 94/71 05/05 1016 77 94/71 05/05 0818 98.2 77 20 94/71 94 05/05 0649 6LPM 05/05 0649 6LPM 05/05 0649 96 6LPM 05/05 0417 99.3 66 20 121/50 94 05/05 0220 40 05/05 0219 98 05/05 0114 100.2 79 18 120/46 90 05/04 2329 94 05/04 2210 6L 05/04 2209 93 6L 05/04 2156 5L 05/04 2156 5L 05/04 2156 89 5L 05/04 2139 98 175/93 05/04 2139 98 175/93 05/04 2111 99.1 98 22 175/93 92 Nasal 5 Cannula 05/04 2045 99.1 98 22 175/93 92 Nasal 5 Cannula 05/04 1924 92 23 161/74 96 05/04 1807 94 19 189/88 91 05/04 1802 94 189/88 05/04 1548 2L 05/04 1545 98.2 90 20 177/92 95 05/04 1450 98.2 90 20 177/92 95 Intake & Output 12/22 0712/21 2300 12/21 1500 Intake Total 0 120 Output Total 400 Balance 0 -280 Current Medications Sig/Cal Start time Last Medication Dose Route Stop Time Status Admin Furosemide 60 MG BIDD 12/23 899 CAN IV Tamsulosin HCl 0.4 MG QDAY@1800 12/22 1800 AC PO Allopurinol 300 MG DAILY 12/22 09 I 12/22 PO 1016 Enoxaparin Sodium 40 MG QDAY 12/22 899 CAN SC Enoxaparin Sodium 30 MG QDAY 12/22 899 I 12/22 SC 1015 Glipizide 10 MG BIDAC 12/22 729 AC PO Bumetanide 10 MG .Q20H 12/22 07 AC 12/22 Sodium Chloride 100 ML IV 1027 Dextrose/Water 125 ML PRN PRN 12/22 06 AC IV Dextrose/Water 250 ML PRN PRN 12/22 06 AC IV Insulin Human Lispro See Dose SS PRN 12/22 06 AC Insts (1) SC Albuterol Sulfate 3 ML Q4H SVN PROTOCOL 12/21 2200 AC 12/22 IH 1040 Carvedilol 6.25 MG BID 12/21 2100 AC 12/22 PO 1016 Hydralazine HCl 50 MG TID 12/21 2100 DC 12/22 PO 1017 Melatonin 1 MG DAILY@12/21 2000 AC 12/21 PO 2138 Albuterol Sulfate 3 ML PRN SVN PROTOCOL PRN 12/21 1900 AC IH Acetaminophen 650 MG Q6HPRN PRN 12/21 184 AC PO Al Hydrox/Mg Hydrox/ 30 ML Q6HPRN PRN 12/21 184 AC Simethicone PO Albuterol Sulfate 3 ML PROTOCOL SVN 12/21 184 DC IH Docusate Sodium 100 MG HSPRN PRN 12/21 184 AC PO Hydralazine HCl 10 MG Q4HPRN PRN 12/21 184 AC IV Magnesium Hydroxide 30 ML QDPRN PRN 12/21 184 AC PO Ondansetron HCl 4 MG Q4HPRN PRN 12/21 184 AC IV Sodium Chloride 20 ML PRN PRN 12/21 184 AC 05/05 IV 1028 Ondansetron HCl 4 MG NOW STA 12/21 1742 DC 05/ IV / 1743 1801 Furosemide 80 MG NOW STA 12/21 1729 DC 05/ IV 12/21 1730 1800 Nitroglycerin 1.5 INCH NOW STA 12/21 1729 DC 05/ TOP 12/21 1730 1802 Albuterol/Ipratropium 3 ML NOW STA 12/21 1529 DC 12/21 IH 12/21 1530 1546 Dose Instructions: (1)Insulin Human Lispro: PER SLIDING SCALE Orders Procedure Date/time Status COMPLETE BLOOD COUNT 12/24 040 Active ELECTROCARDIOGRAM 12/23 08 Active RENAL PANEL 12/23 040 Active PTH (PARATHYROID HORM)-NO OR 12/23 040 Active MAGNESIUM 12/23 040 Active COMPREHENSIVE METABOLIC PANEL 12/23 040 Active COMPLETE BLOOD COUNT 12/23 0400 Active NO ADDED SALT DIET 12/22 B Active FLUID RESTRICTION 12/22 B Active CARDIAC DIET 12/22 B Active PT: Initial Note Version 1 12/22 1122 Active Notify Consulting physician 12/22 1058 Active RT EKG ALERT - NO CHARGE 12/22 0656 Active z Fingerstick Glucose 12/22 0636 Active TROPONIN T-HIGH SENSITIVITY 12/22 0400 Complete COMPLETE BLOOD COUNT 12/22 0400 Complete BASIC METABOLIC PANEL 12/22 0400 Complete PHYSICIANS FOR CONSULT 12/22 UNK Active ECHO COMPLETE 12/22 UNK Active RT: Assist/Misc 12/21 2306 Active RT: NIPPV 12/21 2306 Active BIPAP/CPAP MANAGEMENT 12/21 222 Active RT: SPO2 Therapy 12/21 1954 Active RT: O2 Therapy 12/21 1954 Active RT: Assessment 12/21 1954 Active RT TREATMENT ORDER 12/21 183 Active OXYGEN PROTOCOL 12/21 183 Active Weigh Patient 12/21 183 Active VS-Vitals per nursing protocol 12/21 183 Active Activity-Up as Tolerated 12/21 183 Active Strict I&O.... 12/21 183 Active Prep 12/21 183 Active Oximetry 12/21 183 Active Notify Consulting physician 12/21 183 Active Notify/Chart - Atraumatic Fall 12/21 183 Active I&O-Intake & Output 12/21 183 Active Insert Saline Lock 12/21 183 Active zVTE Prophylaxis Education 12/21 1839 Active VTE Prophylaxis Med Addressed 12/21 183 Active zPT DIAGNOSIS 12/21 1839 Active Code Status 12/21 183 Active Apply Telemetry 12/21 183 Active Admit/Assign to.... 12/21 183 Active PHYSICIANS FOR CONSULT 12/21 1838 Active Add Plan of Care Visit Assess 12/21 180 Active Pt requires stay - bed needed 12/21 1808 Active RT: Aerosol Therapy 12/21 1548 Active AEROSOL W/ INSTRUCTION 12/21 1529 Complete TROPONIN T-HIGH SENSITIVITY 12/21 1529 Complete RAPID COVID 12/21 1529 Complete TROPONIN T-HIGH SENSITIVITY 12/21 1456 Complete BNP(PRO) 12/21 1456 Complete HEPATIC PANEL 12/21 145 Complete COMPLETE BLOOD COUNT 12/21 1456 Complete BASIC METABOLIC PANEL 12/21 1456 Complete Physiologic monitoring 12/21 1456 Active zNotify Physician IF: 12/21 1456 Active IV Start with saline lock.... 12/21 1456 Active Activity-Bedrest w/HOB elevate 12/21 1456 Active Continous Pulse Oximetry 12/21 1456 Active ELECTROCARDIOGRAM 12/21 1456 Active EVALUATE AND TREAT FOR PT 12/21 UNK Complete PHYSICIANS FOR CONSULT 12/21 UNK Active Plan Plans Activity Out of Bed, Increase Ambulation, OOB to Chair, PT Consult Diet Continue Current Nursing See orders Medications/IV Plans Continue Current Meds Diagnostics Labs Ordered Condition No Change/No Better Disposition Stepdown Time Spent 45 minutes Quality DVT Prophylaxis addressed, GI Prophylaxis addressed Additional Comments Assessment/plan # Acute CHF exacerbation # Elevated Troponins # Chronic respiratory failure(2 L NC at home) # Hx of CHF Pro [id number] Plan Stepdown with tele Oxygen therapy, wean down as able Switched IV Lasix 40 mg iv bid to Bumex gtt Strict I&Os Daily weights Fluid restriction to 1800 ml/day salt restriction cardiology consult Reviewed Cardiology notes F/U ECHO results Order Labs # [place] on CKD Cr-3.02(Baseline Looks 2.4) Strict I&Os Try to avoid nephrotoxic drugs Consult Nephrology Case discussed with Nephrology team Monitor # DM2 Continue ISS, ACHS Hold home Glipizide # Mild Hyperkalemia Give one dose of keyaxalate Monitor # Hx of HTN Continue on home meds # Hx of Pulmonary fibrosis Oxygen therapy Continue on home meds # MACY # Obesity Life style measures after the medrec # BPH RContinue on home meds <Electronically signed by MELONIE DOUGLASS M.D.> 12/22/22 1222 MELONIE DOUGLASS M.D. << Signature on File>> Reported By: MELONIE DOUGLASS M.D. Signed By: MELONIE DOUGLASS M.D. Tests performed at: [address] [address] [place] [address] QUICK NOTE Patient: PETE CONLEY KEVIN J M.D. [id number] 48 72 M Status: ADM IN [facility] 2076-A Report Date & Time: 12/22/22 1058 Change Of Status Additional Notes consult dictated [id number] <Electronically signed by VICK TAYLOR M.D.> 12/22/22 1059 VICK TAYLOR M.D. << Signature on File>> Reported By: VICK TAYLOR M.D. Signed By: VICK TAYLOR M.D. Tests performed at: [place] [id number] documented in this encounter [facility] 12-24-2022 [place] [address] HEALTH INFORMATION MANAGEMENT CONSULTATION Patient: PETE CONLEY WAYNE D D.O. [id number] [age] M Status: ADM IN [facility] DATE OF CONSULTATION: 12/22/2022 TIME: 6:30 a.m. REASON FOR CONSULTATION: Asked to see the patient secondary to shortness of breath. HISTORY: This is a 72-year-old male, who came into the hospital with marked swelling, shortness of breath, fatigue, tiredness. The patient was given Lasix. The patient was seen on 11/27. The patient was found to be in congestive heart failure with marked shortness of breath. The patient was recommended to consider hospital stay and he did not want to do the hospital stay. The patient was on Zaroxolyn therapy. We felt at this time the patient would do well on increased diuretic therapy. He was recommended to take Bumex daily for 3 days. If the swelling does not improve, then he would go ahead and consider coming into the hospital. The patient has been told in the past to do weight reduction. He said he has noted his weight increase of 8 pounds. He is concerned about increasing fluid retention. He is not really compliant overall to his diet. The patient was just at [facility] earlier. The patient has a history of cardiomyopathy. Ejection fraction is 45%, inferior wall hypokinesis, grade 2 diastolic dysfunction was noted. The patient also has chronic kidney disease. The last creatinine in September was noted to be 3.07, so we are very concerned at this time that he had underlying chronic kidney disease stage 4, congestive heart failure, and the patient again was recommended to be in the emergency room and he did not want to do that at this time. The patient had a stress test that was done in 2021. Stress test demonstrated ejection fraction of 39%. There was no reversible ischemia. TID was not noted. However, left ventricular cavity was increased. underlying cardiomyopathy. The patient had a CT of the chest done in March of 2022. This demonstrated significant coronary atherosclerosis. Bilateral pneumonia. Subcarinal lymphadenopathy. The patient had a CT of the chest done several days ago and this demonstrated no significant change in the interstitial lung disease. Ground-glass appearance was appreciated. Severe heavy calcification noted of the coronary arteries again was identified. No evidence of pulmonary embolism was appreciated. The patient had echocardiogram in September in 2021. This demonstrated a technically difficult study, ejection fraction 40% to 45%. Moderate to severe degree of mitral annular calcification. Mitral regurgitation was noted to be mild. Tricuspid regurgitation also found to be mild. MEDICATIONS: Medical therapy: 1. Hydralazine 50 mg twice a day. 2. Coreg 6.25 twice a day. 3. Bumex as needed 1 mg. 4. Amlodipine 10 mg daily. 5. Albuterol. 6. Glipizide. 7. Flomax. ALLERGIES: Amlodipine, aspirin, and Victoza. PAST MEDICAL HISTORY: Positive for the cardiomyopathy, hypertension, hyperlipidemia, chronic diastolic dysfunction , chronic kidney disease stage 3 to 4, diabetes, diabetic neuropathy, COPD, benign prostatic hypertrophy, sleep apnea. SURGICAL HISTORY: Positive for tonsillectomy. FAMILY HISTORY: Mother and father both . Sister has diabetes, heart disease. A brother has arrhythmia, diabetes. PHYSICAL EXAMINATION: GENERAL: The patient appeared older than his stated age of 72. The patient appeared hypervolemic at this time. Awake, alert, did not really recognize me. HEENT: Symmetrical face. NECK: There is bilateral jugular venous distension. There are also bilateral carotid bruits. HEART: There is no gallop. The PMI markedly displaced laterally. Holosystolic murmur noted at the apex. LUNGS: Intercostal muscle utilization is not noted. Crackles bilaterally. There are rhonchi also noted bilaterally. ABDOMEN: Abdominal cavity protuberant, soft, nontender. EXTREMITIES: 3+ pitting edema, both legs. IMPRESSION: The patient appears to be in congestive heart failure. He was seen in the office with concern about kidney disease. He did not have good output with diuretic therapy. We will go ahead and put him on Bumex drip at this time, 1 mg. We will go ahead and see what the Renal Team offers, but really concerned about the severe calcification of the coronary arteries. I feel at this time, the patient has balanced ischemia; however, if we do a heart catheterization with a creatinine of 3, I feel that the patient will end up on dialysis. He is not interested in dialysis at this time. Report#: Dict ID [id number] / Int ID [id number] 12/24/22 1721 GROSS,TRISTAN D D.O. cc: TRISTAN ALEXANDER D.O. << Signature on File>> Reported By: TRISTAN ALEXANDER D.O. Signed By: TRISTAN ALEXANDER D.O. Tests performed at: [address] (more content not included)... [facility] 12-24-2022 Consult note Formatting of th is note might be different from the original. [facility] [place] [address] HEALTH INFORMATION MANAGEMENT CONSULTATION Patient: PETE CONLEY TRISTAN ALEXANDER D.O. [id number] [age] M [facility] DATE OF CONSULTATION: 12/22/2022 TIME: 6:30 a.m. REASON FOR CONSULTATION: Asked to see the patient secondary to shortness of breath. HISTORY: This is a 72-year-old male, who came into the hospital with marked swelling, shortness of breath, fatigue, tiredness. The patient was given Lasix. The patient was seen on 11/27. The patient was found to be in congestive heart failure with marked shortness of breath. The patient was recommended to consider hospital stay and he did not want to do the hospital stay. The patient was on Zaroxolyn therapy. We felt at this time the patient would do well on increased diuretic therapy. He was recommended to take Bumex daily for 3 days. If the swelling does not improve, then he would go ahead and consider coming into the hospital. The patient has been told in the past to do weight reduction. He said he has noted his weight increase of 8 pounds. He is concerned about increasing fluid retention. He is not really compliant overall to his diet. The patient was just at [facility] earlier. The patient has a history of cardiomyopathy. Ejection fraction is 45%, inferior wall hypokinesis, grade 2 diastolic dysfunction was noted. The patient also has chronic kidney disease. The last creatinine in September was noted to be 3.07, so we are very concerned at this time that he had underlying chronic kidney disease stage 4, congestive heart failure, and the patient again was recommended to be in the emergency room and he did not want to do that at this time. The patient had a stress test that was done in 2021. Stress test demonstrated ejection fraction of 39%. There was no reversible ischemia. TID was not noted. However, left ventricular cavity was increased. underlying cardiomyopathy. The patient had a CT of the chest done in March of 2022. This demonstrated significant coronary atherosclerosis. Bilateral pneumonia. Subcarinal lymphadenopathy. The patient had a CT of the chest done several days ago and this demonstrated no significant change in the interstitial lung disease. Ground-glass appearance was appreciated. Severe heavy calcification noted of the coronary arteries again was identified. No evidence of pulmonary embolism was appreciated. The patient had echocardiogram in September in 2021. This demonstrated a technically difficult study, ejection fraction 40% to 45%. Moderate to severe degree of mitral annular calcification. Mitral regurgitation was noted to be mild. Tricuspid regurgitation also found to be mild. MEDICATIONS: Medical therapy: 1. Hydralazine 50 mg twice a day. 2. Coreg 6.25 twice a day. 3. Bumex as needed 1 mg. 4. Amlodipine 10 mg daily. 5. Albuterol. 6. Glipizide. 7. Flomax. ALLERGIES: Amlodipine, aspirin, and Victoza. PAST MEDICAL HISTORY: Positive for the cardiomyopathy, hypertension, hyperlipidemia, chronic diastolic dysfunction , chronic kidney disease stage 3 to 4, diabetes, diabetic neuropathy, COPD, benign prostatic hypertrophy, sleep apnea. SURGICAL HISTORY: Positive for tonsillectomy. FAMILY HISTORY: Mother and father both . Sister has diabetes, heart disease. A brother has arrhythmia, diabetes. PHYSICAL EXAMINATION: GENERAL: The patient appeared older than his stated age of 72. The patient appeared hypervolemic at this time. Awake, alert, did not really recognize me. HEENT: Symmetrical face. NECK: There is bilateral jugular venous distension. There are also bilateral carotid bruits. HEART: There is no gallop. The PMI markedly displaced laterally. Holosystolic murmur noted at the apex. LUNGS: Intercostal muscle utilization is not noted. Crackles bilaterally. There are rhonchi also noted bilaterally. ABDOMEN: Abdominal cavity protuberant, soft, nontender. EXTREMITIES: 3+ pitting edema, both legs. IMPRESSION: The patient appears to be in congestive heart failure. He was seen in the office with concern about kidney disease. He did not have good output with diuretic therapy. We will go ahead and put him on Bumex drip at this time, 1 mg. We will go ahead and see what the Renal Team offers, but really concerned about the severe calcification of the coronary arteries. I feel at this time, the patient has balanced ischemia; however, if we do a heart catheterization with a creatinine of 3, I feel that the patient will end up on dialysis. He is not interested in dialysis at this time. Report#: Dict ID [id number] / Int ID [id number] <Electronically signed by TRISTAN ALEXANDER D.O.> 12/24/22 1721 TRISTAN ALEXANDER D.O. cc: TRISTAN ALEXANDER D.O. << Signature on File>> Reported By: TRISTAN ALEXANDER D.O. Signed By: TRISTAN ALEXANDER D.O. Tests performed at: [address] [address] [place] [address] HEALTH INFORMATION MANAGEMENT CONSULTATION Patient: PETE CONLEY TRISTAN ALEXANDER D.O. [id number] 48 72 M Status: ADM IN [facility] 2075- DATE OF CONSULTATION: 12/22/2022 TIME: 6:30 a.m. Asked to see the patient secondary to shortness of breath. The patient is known to our service secondary to shortness of breath. He was seen in the office just the other day. He was asked to be on Zaroxolyn therapy. The patient was told to take it every day. He did not call us back, but he got increasing shortness of breath, and he did follow instructions if he got increased shortness of breath he was supposed to come into the emergency room. He did that. In the emergency room, he was found to have acute onset of congestive heart failure. ALLERGIES: Amlodipine, swelling; aspirin, tachycardia; Victoza. MEDICINES: In the office are: 1. Oxygen. 2. Carvedilol 6.25 twice a day. 3. Hydralazine 50 mg twice a day. 4. Bumex 1 mg as needed. 5. Amlodipine 10 mg daily. 6. Actos 30 mg daily. 7. Zyloprim. 8. Glucotrol. 9. Flomax. PAST MEDICAL HISTORY: Positive for hypertension, hyperlipidemia, COPD, diabetes, diabetic neuropathy, chronic kidney disease, benign prostatic hypertrophy, sleep apnea. SURGICAL HISTORY: Positive for tonsillectomy. FAMILY HISTORY: His father has , had diabetes. Mother . One of the sister has diabetes, heart disease. A brother named Tristan has arrhythmias, diabetes. The patient had an echocardiogram done in September 2021. This demonstrated him to have normal wall thickness. However, the left ventricular cavity dilated at 5.7. Ejection fraction low at 45%. The right-sided chambers were moderately enlarged. The aortic valve is sclerotic, thickened, but opens freely. There was mild degree of tricuspid regurgitation. PA pressure was noted to be within normal limits. The patient had a chest CAT scan. The CAT scan of the chest demonstrated a ground-glass pulmonary nodule noted in the left area. There were no significant changes. There was interstitial lung disease. Minimal disease noted throughout. Subcarinal lymphadenopathy was noted to be increased. I personally looked at the CT images. There was severe calcification noted in the LAD distribution as well as the proximal circumflex and the RCA. I feel at this time the patient will have triple-vessel disease based on the degree of coronary calcification. PHYSICAL EXAMINATION: GENERAL: Alert male. The patient is upright position. Mild shortness of breath is appreciated. Appears to be hypervolemic at this time. NECK: Mild jugular venous distention. HEART: Positive gallop appreciated at this time. LUNGS: Heaves, crackles noted. There were diffuse rhonchi and cough noted throughout. EXTREMITIES: 2+ pitting edema. Could not feel any pulse in posterior tibial. No pulse in popliteal. At this time, the patient is admitted to the hospital secondary to shortness of breath. Creatinine is markedly increased. The creatinine is greater than 3. We will go ahead and place him on Bumex drips. We will get a renal consultation. The patient has severe coronary calcification. I have not seen any imaging of a heart catheterization. If we do a heart catheterization at this time, with the kidney status, we will go ahead and put him on dialysis. This is a 72-year-old gentleman. I feel at this time that he does have triple-vessel disease and this is why he is having congestive heart failure. The question is can his kidneys take a diagnostic workup. Report#: Dict ID [id number] / Int ID [id number] <Electronically signed by TRISTAN ALEXANDER D.O.> 12/24/22 1732 TRISTAN ALEXANDER D.O. cc: TRISTAN ALEXANDER D.O. << Signature on File>> Reported By: TRISTAN ALEXANDER D.O. Signed By: TRISTAN ALEXANDER D.O. Tests performed at: [address] [id number] documented in this encounter [facility] 12-22-2022 [place] [address] HEALTH INFORMATION MANAGEMENT CONSULTATION Patient: PETE CONLEY KEVIN J M.D. [id number] 48 72 M Status: DIS IN [facility] 2075-A DATE OF CONSULTATION: 12/22/2022 REASON FOR CONSULT: Chronic kidney disease stage 4 with congestive heart failure. HISTORY OF PRESENT ILLNESS: The patient is 72-year-old with past medical history significant for stage 4 chronic kidney disease and heart failure with reduced ejection fraction. The patient has been progressively gaining water weight over the last several weeks. He presented to the hospital with anasarca and shortness of breath. He baseline uses 2 liters nasal cannula. This is now up to 5. He has gained he believes approximately 20 pounds of water weight despite taking diuretics. He was suggested to take metolazone as an outpatient, but did not do so. The patient was scheduled to have a peritoneal dialysis catheter placed as an outpatient yesterday; however, he presented to the emergency department instead. He is aware of his failing kidneys. He is aware of requiring renal replacement therapy to manage his volume. Currently, the patient denies chest pain. He does have orthopnea. He does feel edematous. He also has abdominal bloating. No cough. No fevers or chills. Appetite is fair. He has been eating fairly healthy. He is trying to follow a low-sodium diet. He is having no urinary symptoms including hesitancy or incontinence. No skin rashes. No recent NSAIDs. No recent exposure to IV contrast. The patient did have an ultrasound upon admission due to his worsening kidney function. This did not show evidence of obstruction or hydronephrosis. It did show a 3 centimeter mass in his bladder. No urinary retention. Otherwise, review of systems was negative. PAST MEDICAL HISTORY: Significant for chronic kidney disease, heart failure with reduced ejection fraction, type 2 diabetes, BPH, hypertension, hyperkalemia, morbid obesity, sleep apnea. PAST SURGICAL HISTORY: Includes tonsillectomy. MEDICATIONS: 1. Actos. 2. Coreg. 3. Glucotrol. 4. Zyloprim. 5. Cardura. 6. Prednisone. 7. Kayexalate. 8. Amlodipine. 9. Hydralazine. 10. Bumex. ALLERGIES: He has allergies to aspirin and metformin. SOCIAL HISTORY: He is a nonsmoker, nondrinker. FAMILY HISTORY: Significant for hypertension and heart failure. PHYSICAL EXAMINATION: VITAL SIGNS: T-max is 100.2, pulse 77, blood pressure is 94/71. GENERAL: He is in mild respiratory distress. HEENT: Significant for moist oral mucosa. Sclerae anicteric. NECK: Reveals distended neck veins. LUNGS: Have crackles bilaterally. CARDIOVASCULAR: Regular. No murmurs. ABDOMEN: Obese, soft, nondistended, nontender. He has positive bowel sounds. No palpable masses. EXTREMITIES: Have diffuse edema. Pulses 1+ in dorsalis pedis arteries bilaterally. SKIN: Exam reveals normal turgor with no rashes. NEUROLOGICAL: He has no focal motor deficits. He is alert and oriented. LABORATORY DATA: White count 4.7, hemoglobin 12.1, hematocrit 37.4, platelet count 117,000. Sodium 134, potassium 5.4, chloride 106, bicarb 23, BUN 48, creatinine 3.5, glucose 96, calcium 8.3. IMPRESSION AND PLAN: 1. Chronic kidney disease stage 4. The patient is approaching the need for dialysis, mostly to manage his volume. He was scheduled for peritoneal dialysis catheter to be placed yesterday. He will have this rescheduled as an outpatient. In the meantime, we must maximize his volume status. I do believe his worsening kidney function is related to his low blood pressure and I will hold his amlodipine and hydralazine. 2. Bladder mass. I believe that this is a new finding. An abdominal and pelvic scan has been recommended. I would suggest consultation with Urology. It does not appear that patient has any obstructive uropathy based on ultrasound. 3. Heart failure with reduced ejection fraction. An echocardiogram has been ordered. I agree with using a Bumex drip for diuresis. Ultimately we will manage his volume with peritoneal dialysis. He will stay on a low-sodium diet. He will continue on his carvedilol. He is being followed by Cardiology. Once started on renal replacement therapy he will likely benefit from evaluation of his coronary anatomy with a heart catheterization. Report#: Dict ID [id number] / Int ID [id number] 01/06/23 1458 VICK TAYLOR M.D. cc: VICK TAYLOR M.D. << Signature on File>> Reported By: VICK TAYLOR M.D. Signed By: VICK TAYLOR M.D. Tests performed at: [address] [id number] [facility] 12-22-[address] [facility] [place] [address] HEALTH INFORMATION MANAGEMENT CONSULTATION Patient: JARVISPETE WAYNE D D.O. [id number] [age] M Status: ADM IN [facility] DATE OF CONSULTATION: 12/22/2022 TIME: 6:30 a.m. Asked to see the patient secondary to shortness of breath. The patient is known to our service secondary to shortness of breath. He was seen in the office just the other day. He was asked to be on Zaroxolyn therapy. The patient was told to take it every day. He did not call us back, but he got increasing shortness of breath, and he did follow instructions if he got increased shortness of breath he was supposed to come into the emergency room. He did that. In the emergency room, he was found to have acute onset of congestive heart failure. ALLERGIES: Amlodipine, swelling; aspirin, tachycardia; Victoza. MEDICINES: In the office are: 1. Oxygen. 2. Carvedilol 6.25 twice a day. 3. Hydralazine 50 mg twice a day. 4. Bumex 1 mg as needed. 5. Amlodipine 10 mg daily. 6. Actos 30 mg daily. 7. Zyloprim. 8. Glucotrol. 9. Flomax. PAST MEDICAL HISTORY: Positive for hypertension, hyperlipidemia, COPD, diabetes, diabetic neuropathy, chronic kidney disease, benign prostatic hypertrophy, sleep apnea. SURGICAL HISTORY: Positive for tonsillectomy. FAMILY HISTORY: His father has , had diabetes. Mother . One of the sister has diabetes, heart disease. A brother named Tristan has arrhythmias, diabetes. The patient had an echocardiogram done in September 2021. This demonstrated him to have normal wall thickness. However, the left ventricular cavity dilated at 5.7. Ejection fraction low at 45%. The right-sided chambers were moderately enlarged. The aortic valve is sclerotic, thickened, but opens freely. There was mild degree of tricuspid regurgitation. PA pressure was noted to be within normal limits. The patient had a chest CAT scan. The CAT scan of the chest demonstrated a ground-glass pulmonary nodule noted in the left area. There were no significant changes. There was interstitial lung disease. Minimal disease noted throughout. Subcarinal lymphadenopathy was noted to be increased. I personally looked at the CT images. There was severe calcification noted in the LAD distribution as well as the proximal circumflex and the RCA. I feel at this time the patient will have triple-vessel disease based on the degree of coronary calcification. PHYSICAL EXAMINATION: GENERAL: Alert male. The patient is upright position. Mild shortness of breath is appreciated. Appears to be hypervolemic at this time. NECK: Mild jugular venous distention. HEART: Positive gallop appreciated at this time. LUNGS: Heaves, crackles noted. There were diffuse rhonchi and cough noted throughout. EXTREMITIES: 2+ pitting edema. Could not feel any pulse in posterior tibial. No pulse in popliteal. At this time, the patient is admitted to the hospital secondary to shortness of breath. Creatinine is markedly increased. The creatinine is greater than 3. We will go ahead and place him on Bumex drips. We will get a renal consultation. The patient has severe coronary calcification. I have not seen any imaging of a heart catheterization. If we do a heart catheterization at this time, with the kidney status, we will go ahead and put him on dialysis. This is a 72-year-old gentleman. I feel at this time that he does have triple-vessel disease and this is why he is having congestive heart failure. The question is can his kidneys take a diagnostic workup. Report#: Dict ID [id number] / Int ID [id number] 12/24/22 1732 TRISTAN ALEXANDER D.O. cc: TRISTAN ALEXANDER D.O. << Signature on File>> Reported By: TRISTAN ALEXANDER D.O. Signed By: TRISTAN ALEXANDER D.O. Tests performed at: [address] [address] [facility] 12-21-2022 History [place] [address] HISTORY AND PHYSICAL Patient: PETE CONLEY Attending: MELONIE DOUGLASS M.D. PCP: MOISES PRATER M.D. [id number] 72 M Status: ADM IN [facility] 6-A Report Date & Time: 12/21/22 1834 HPI Chief Complaint Increased SOB and Swelling of his whole body History Of Present Illness A 72 year old male with PMHx of CHF, HTN, Pulmonary fibrosis, Chronic respiratory failure(2 L NC at home), CKD, MACY, BPH who presents to the ED with c/o of Increased SOB and Swelling of his whole body. Patient reports he has feeling SOB, associated with swelling of his body, Productive cough with yellow sputum, nausea, vomiting once. Denies any chest pain, nausea, vomiting, abdominal pain, bladder changes. Of note Constipation at times. Of note patient suppose to see his manager strategy for Possible Dialysis cath on abdomen but did not make it due to current health condition Family history: No known HTN, CHF, Other medical problems Past surgical history: Tonsilectomy Social history: denies any tobacco, etoh or illicit drug abuse Patient Health History Medical Problems Acute kidney injury superimposed on CKD BPH (benign prostatic hyperplasia) Chronic bronchitis CKD (chronic kidney disease), stage III DM2 (diabetes mellitus, type 2) DVT prophylaxis Elevated troponin Essential (primary) hypertension Heart failure Hyperkalemia Hypertensive urgency Hypoxia Morbid obesity MACY (obstructive sleep apnea) Allergies Coded Allergies: aspirin (TACHYCARDIA 10/06/21) metformin (UNKNOWN 12/21/22) Home Medications Reported Medications Pioglitazone Hcl* (Actos*) 45 MG PO DAILY Carvedilol* (Coreg*) 25 MG PO BID GlipiZIDE* (Glucotrol*) 10 MG PO BIDAC Allopurinol* (Zyloprim*) 100 MG PO DAILY Doxazosin* Mesylate (Cardura*) 4 MG PO DAILY predniSONE* 20 MG PO QDAY Sodium Polystyrene Sulfonate (Kayexalate) 15 GM PO QDAY Amlodipine* Besylate (Norvasc*) 10 MG PO QDAY HydrALAZINE* Hcl (Apresoline*) 50 MG PO QID Bumetanide* (Bumex*) 1 MG PO QDAY Labs/Vitals/Meds Hematology Range/Units 12/21 1504 Hematology WBC 4.5 - 10.0 x10(3) 7.2 RBC 4.80 - 5.50 x10(6) 4.38 L Hgb 14.0 - 17.2 g/dL 13.8 L Hct 42.0 - 51.0 % 43.0 MCV 80.0 - 94.0 fl 98.0 H MCH 28.8 - 32.2 pg 31.6 MCHC 33.0 - 36.0 g/dL 32.2 L RDW 12.7 - 15.3 % 15.9 H Plt Count 150 - 450 X10(3) 131 L MPV 7.4 - 9.2 fl 8.8 Neut % (Auto) 45.0 - 73.0 % 89.3 H Lymph % (Auto) 16.0 - 48.0 % 2.2 L Addison % (Auto) 4.3 - 11.2 % 7.9 Eos % (Auto) 0.5 - 4.9 % 0.4 L Baso % (Auto) 0.0 - 1.0 % 0.2 Neut # (Auto) 1.40 - 6.50 x10(3) 6.40 Lymph # (Auto) 1.00 - 3.50 x10(3) 0.20 L Addison # (Auto) 0.30 - 0.80 x10(3) 0.60 Eos # (Auto) 0.00 - 0.54 x10(3) 0.00 Baso # (Auto) 0.00 - 0.10 x10(3) 0.00 Chemistry Range/Units 12/21 12/21 1621 1504 Chemistry Troponin T High Sens 6 - 12 ng/L 47.40 H NT-Pro-B Natriuret Pep pg/mL [id number] Range/Units 12/21 1504 Chemistry Sodium 135 - 145 mmol/L 136 Potassium 3.5 - 5.0 mmol/L 5.4 H Chloride 98 - 107 mmol/L 103 Carbon Dioxide 22 - 29 mmol/L 21 L Anion Gap 15 - 22 mmol/L 17.4 BUN 8 - 23 mg/dL 46 H Creatinine 0.70 - 1.20 mg/dL 3.02 H Est GFR ( Amer) 25 Est GFR (Non-Af Amer) 20 Glucose 82 - 115 mg/dL 178 H Calcium 8.8 - 10.2 mg/dL 8.9 Total Bilirubin 0.2 - 1.2 mg/dL 0.9 Direct Bilirubin 0.0 - 0.3 mg/dL 0.3 AST 5 - 40 U/L 28 ALT 5 - 41 U/L 13 Alkaline Phosphatase 40 - 130 U/L 102 Troponin T High Sens 6 - 12 ng/L 47.95 H Total Protein 6.4 - 8.3 g/dL 7.2 Albumin 3.5 - 5.2 g/dL 3.9 Globulin 1.5 - 4.5 g/dL 3.3 Albumin/Globulin Ratio 1.1 - 2.5 1.18 Vital Signs Date Time Temp Pulse Resp B/P B/P Pulse O2 O2 Flow FiO2 Mean Ox Delivery Rate 12/21 1807 94 19 189/88 91 12/21 1802 94 189/88 12/21 1548 2L 12/21 1545 98.2 90 20 177/92 95 12/21 1450 98.2 90 20 177/92 95 Objective Focused Exam Performed General Appearance Alert, Oriented X3, Cooperative, Mild Distress HEENT Atraumatic, PERRLA, Mucous Membr. moist/pink, WNL Lungs Crackles Neck Supple, No Thryomegaly, +2 Carotid Pulse wo Bruit Cardiovascular NSR, Normal S1, S2 Abdomen Normal Bowel Sounds, Soft, No Hepatospenomegaly, Obese, Mild lower abdominal tenderness Extremities Edema, Normal Pulses, Tenderness/Swelling Skin No Rashes, No Breakdown, No Significant Lesion Neurological Normal Speech, Strength at 5/5 X4 Ext, Normal Tone, Sensation Intact, Cranial Nerves 2-12 NL Psych/Mental Status Normal Mood, Pleasant Plan Plans Activity Out of Bed, Increase Ambulation, OOB to Chair, PT Consult Diet Continue Current Nursing See orders Medications/IV Plans Continue Current Meds Diagnostics Labs Ordered, X-Ray Ordered, Echo Ordered, Consult Condition New Problem Disposition Stepdown Time Spent 45 minutes Additional Comments Assessment/plan # Acute CHF exacerbation # Elevated Troponins # Chronic respiratory failure(2 L NC at home) # Hx of CHF Pro [id number] Plan Stepdown with tele Oxygen therapy, wean down as able Start IV Lasix 40 mg iv bid Strict I&Os Daily weights Fluid restriction to 1800 ml/day salt restriction cardiology consult Order ECHO Order Labs # [place] on CKD Cr-3.02(Baseline Looks 2.4) Strict I&Os Try to avoid nephrotoxic drugs Consult Nephrology Monitor # Mild Hyperkalemia Give one dose of keyaxalate Monitor # Hx of HTN Resume home meds after medrec # Hx of Pulmonary fibrosis Oxygen therapy Resume home meds after medrec # MACY # Obesity Life style measures after the medrec # BPH Resume home meds after medrec <Electronically signed by MELONIE DOUGLASS M.D.> 12/22/22 1132 MELONIE DOUGLASS M.D. cc: << Signature on File>> Reported By: MELONIE DOUGLASS M.D. Signed By: MELONIE DOUGLASS M.D. Tests performed at: [place] [id number] [place], [place] [address] documented in this encounter [facility] 12-21-2022 [place] [address] HEALTH INFORMATION MANAGEMENT EMERGENCY DEPARTMENT REPORT Patient: PETE CONLEYHARISH M.D. [id number] 48 72 M Status: ADM IN [facility] 2075- Date of Service: 12/21/22 CHIEF COMPLAINT: Swelling and increasing shortness of breath. HISTORY OF PRESENT ILLNESS: The patient is a 72-year-old gentleman brought in today with the above complaint. He has had some swelling of his extremities and increasing shortness of breath for the past couple of days. He has had some nasal congestion and cough as well. He has not had a fever that he is aware of. He is on Lasix every other day. States that he has been taking this as directed. No history of COPD or asthma. No other complaints at this time. Denies any chest pain associated with this. He has not had any problems with urination. No other complaints right now. REVIEW OF SYSTEMS: Otherwise, negative. PAST MEDICAL HISTORY: CHF, diabetes, hypertension. MEDICATIONS: Listed. ALLERGIES: Listed. FAMILY HISTORY: Noncontributory. SOCIAL HISTORY: No drugs, tobacco. PHYSICAL EXAMINATION: GENERAL: A well-nourished, well-developed male, who is awake, alert, not in any acute distress. VITAL SIGNS: As charted. HEENT: Atraumatic, normocephalic. Looks a little puffy around his face. NECK: There is JVD midway to the angle of the jaw. Trachea is midline. There is no stridor. CARDIOVASCULAR: Regular rate and rhythm. No murmurs, rubs, or gallops. LUNGS: He has diffuse end-expiratory wheezing bilaterally, diminished breath sounds. ABDOMEN: Soft, nontender, nondistended. Bowel sounds positive. EXTREMITIES: No clubbing or cyanosis. Trace to 1+ pitting edema. NEURO: He is neurologically intact. EMERGENCY DEPARTMENT COURSE AND MEDICAL DECISION MAKING: At this point, differential diagnosis included acute bronchitis, CHF, pneumonia, acute coronary syndrome. At this point, he has some end-expiratory wheezing throughout, which may be CHF or could be an acute bronchitis and upper respiratory infection. He has some nasal congestion and signs of URI. We will test him for COVID for this. I also gave him a DuoNeb treatment to see if this helps with the wheezing at all. He claims to be taking his diuretics as directed. We will get a B-natriuretic peptide, chest x-ray with further dictation to follow. Report#: Dict ID [id number] / Int ID [id number] <Electronically signed by HARISH BURROWS M.D.> 12/21/222041 HARISH BURROWS M.D. cc: HARISH BURROWS M.D.; MOISES PRATER M.D. << Signature on File>> Reported By: HARISH BURROWS M.D. Signed By: HARISH BURROWS M.D. Tests performed at: [address] [address] documented in this encounter [facility] 12-20-2022 Miscellaneous Notes Patient had test done on 12/18/22. Patient called in requesting results of CT scan? documented in this encounter [facility] 11-27-2022 History of Present illness Narrative [facility] Department of Cardiology Referring Provider: No ref. provider found Date: November 27, 2022 Chief Complaint: Hypertension Subjective: Pete Conley is a 72 year old, established male who presents hypertension. ALLERGIES Allergen Reactions Amlodipine Swelling Aspirin Other: See Comments tacchycardia Victoza [Liraglutid* Other: See Comments PAST MEDICAL HISTORY: PAST MEDICAL HISTORY Diagnosis Date Acute and chronic respiratory failure with hypoxia (HCC) BPH (benign prostatic hyperplasia) Community acquired pneumonia Diabetes (HCC) History of cardiovascular stress test 10/10/2021 -Impression: Enlarging dilated LV and the setting of global hypokinesis. Calculated EF 39%. This may represent the sequela of chronic hypertension or other cardiomyopathy. No images evidence of stress-induced myocardial ischemia. History of echocardiogram 03/18/2021 Echocardiogram demonstrates a suboptimal study. EF 50 to 55%. Moderate concentric LVH. Class I diastolic dysfunction. Left atrium is mildly dilated. Mild a S. Mild to moderate MR. Mild TR. Borderline to mild PHT. History of echocardiogram 10/04/2022 EF 45-50%. Left ventricle cavity size is normal. Wall thickness is normal. Systolic funciton is mildly reduced. Hypokinesis of the anterolateral myocardium. Hypokinesis of the inferioir myocardium Grade 2 diastolic dysfunction. Mitral valve the annulus is mildly calcified. The leaflets are moderately thickened. Thickening. Severe regurgitation. Left atrium is mildly dilated. History of echocardiography 10/07/2021 -Echocardiogram demonstrates of the difficult study with minimal information obtainable. LV is dilated with an EF at 45 to 50%. Diastolic function is indeterminate. Aortic valve is poorly visualized but no evidence for aortic stenosis by Doppler analysis. Moderate mitral annular calcification without hemodynamically significant MS. Mild MR. History of smoking HTN (hypertension) Obstructive sleep apnea on CPAP PAST SURGICAL HISTORY Procedure Laterality Date PAST SURGICAL HISTORY OF Right TMA TONSILLECTOMY HX FAMILY HISTORY Problem Relation Age of Onset Diabetes Father No Known Problems Sister Arrythmias Brother Diabetes Brother Diabetes Sister Heart disease Sister SOCIAL HISTORY: Tobacco Use: 1 packs/day, for 14 years. Quit 08/20/1979. 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 hydrALAZINE (APRESOLINE) 50 mg tablet Take 1 tablet by mouth twice daily with meals. carvedilol (COREG) 6.25 mg tablet Take 1 tablet by mouth twice daily. bumetanide (BUMEX) 1 mg tablet Take 1 mg by mouth as needed. allopurinol (ZYLOPRIM) 100 mg tablet Take 100 mg by mouth once daily. glipiZIDE (GLUCOTROL) 5 mg tablet Take 10 mg by mouth twice daily. tamsulosin ER (FLOMAX) 0.4 mg Take 0.4 mg by mouth once daily. pioglitazone (ACTOS) 30 mg tablet Take 30 mg by mouth once daily. amLODIPine (NORVASC) 10 mg tablet Take 10 mg by mouth once daily. (Patient not taking: No sig reported) albuterol HFA (PROVENTIL HFA, VENTOLIN HFA) 90 mcg/actuation inhaler INHALE 1-2 PUFFS INTO LUNGS EVERY FOUR HOURS NEEDED FOR SHORTNESS OF BREATH/WHEEZING (Patient not taking: Reported on 11/27/2022) No current facility-administered medications for this visit. I have personally reviewed the patients past medical history including social, family, surgical, diagnostics, and medications./AB REVIEW OF SYSTEMS: Review of Systems Constitutional: Negative for chills and fatigue. Respiratory: Positive for shortness of breath. Negative for chest tightness. Cardiovascular: Negative for chest pain, palpitations and leg swelling. Neurological: Negative for dizziness, syncope, weakness and light-headedness. Hematological: Does not bruise/bleed easily. Psychiatric/Behavioral: Negative for confusion and hallucinations. Vitals: BP 158/80 (BP Site: Left Arm, BP Position: Sitting, BP Cuff Size: Large Adult) Pulse 81 Ht 180.3 cm (5' 11) Wt 125.6 kg (277 lb) SpO2 95% BMI 38.63 kg/m PHYSICAL EXAMINATION: BP 158/80 (BP Site: Left Arm, BP Position: Sitting, BP Cuff Size: Large Adult) Pulse 81 Ht 180.3 cm (5' 11) Wt 125.6 kg (277 lb) SpO2 95% BMI 38.63 kg/m Last 3 Encounter BP Readings: Date: BP: 10/30/2022 172/68 07/03/2022 188/81 05/23/2022 172/76 Last 3 Encounter Pulse Readings: Date: Pulse: 10/30/2022 74 07/03/2022 76 05/23/2022 66 Last 3 Encounter Wt Readings: Date: Wt: 10/30/2022 122.5 kg (270 lb) 07/03/2022 124.7 kg (275 lb) 05/23/2022 124.7 kg (275 lb) Physical Exam Vitals reviewed. Constitutional: General: He is not in acute distress. Appearance: He is not ill-appearing or diaphoretic. Cardiovascular: Rate and Rhythm: Normal rate and regular rhythm. Pulses: Carotid pulses are 2+ on the right side and 2+ on the left side. Radial pulses are 2+ on the right side and 2+ on the left side. Femoral pulses are 2+ on the right side and 2+ on the left side. Popliteal pulses are 2+ on the right side and 2+ on the left side. Dorsalis pedis pulses are 2+ on the right side and 2+ on the left side. Posterior tibial pulses are 2+ on the right side and 2+ on the left side. Heart sounds: Murmur heard. Systolic murmur is present with a grade of 2/6. Comments: PMI not displaced. 2nd heart sound loud. Pulmonary: Effort: Pulmonary effort is normal. Breath sounds: Normal breath sounds. No wheezing or rhonchi. Abdominal: General: Abdomen is flat. Bowel sounds are normal. Palpations: Abdomen is soft. Tenderness: There is no abdominal tenderness. There is no guarding. Musculoskeletal: Right lower leg: Edema present. Left lower leg: Edema present. Skin: General: Skin is warm. Coloration: Skin is not jaundiced or pale. Findings: No bruising, rash or wound. Neurological: Mental Status: He is alert and oriented to person, place, and time. Motor: No weakness. Coordination: Coordination is intact. LABS: Glucose (mg/dL) Date Value 10/12/2021 403 Potassium (mmol/L) Date Value 10/12/2021 5.2 Sodium (mmol/L) Date Value 10/12/2021 133 Chloride (mmol/L) Date Value 10/12/2021 96 CO2 (mmol/L) Date Value 10/12/2021 22 Creatinine (mg/dL) Date Value 10/12/2021 3.07 BUN (mg/dL) Date Value 10/12/2021 81 Anion Gap (mmol/L) Date Value 10/12/2021 20.2 Calcium (mg/dL) Date Value 10/12/2021 9.0 Protein, Total (g/dL) Date Value 10/09/2021 6.4 Albumin (g/dL) Date Value 10/09/2021 3.1 Bilirubin, Total (mg/dL) Date Value 10/09/2021 0.5 Alkaline Phosphatase (U/L) Date Value 10/09/2021 62 AST (U/L) Date Value 10/09/2021 26 ALT (U/L) Date Value 10/09/2021 11 Hemoglobin (g/dL) Date Value 10/12/2021 15.2 Hematocrit (%) Date Value 10/12/2021 46.2 WBC (x10(3)) Date Value 10/12/2021 7.9 Cholesterol, Total (mg/dL) Date Value 10/07/2021 223 HDL Cholesterol (mg/dL) Date Value 10/07/2021 35 LDL (mg/dL) Date Value 10/07/2021 169 Triglyceride (mg/dL) Date Value 10/07/2021 96 EKG: DIAGNOSTIC RESULTS: ASSESSMENT/PLAN: 1. Primary hypertension - ICD9: 401.9, ICD10: I10 (primary diagnosis) -Today's blood pressure is 158/80, improved from last office visit on 10/30/2022 with blood pressure 172/68 - suboptimal control - Continue current medication(s) - Encouraged dietary sodium restriction/DASH diet - Recommended regular aerobic exercise. - Reviewed risks of HTN and principles of treatment - Goal of BP <140/90 2. Chronic HFrEF (heart failure with reduced ejection fraction) (HCC) - ICD9: 428.22, ICD10: I50.22 -EF 45-50% -Continue current medications -Continue continuous oxygen 1.5 L via nasal cannula -SPO2 95% -Patient does have noted edema underneath his eyes. Patient is not taking his Bumex daily, ordered as needed. Recommended patient take Bumex daily for the next 3 days. To see if he can decrease the swelling. Patient is agreeable to this -Recommend avoiding salt (patient reports he ate [employer] yesterday). -Recommend weighing himself daily call office with a 3 pound daily weight gain or 5 pound weekly weight gain. Patient is agreeable to this -Explained to patient he may need to take the Bumex twice a week scheduled if he is going to continue to eat foods with high salt content 3. History of echocardiogram - ICD9: V15.89, ICD10: Z92.89 -History of an echocardiogram from 10/04/2022 -EF 45-50%. Left ventricle cavity size is normal. Wall thickness is normal. Systolic funciton is mildly reduced. Hypokinesis of the anterolateral myocardium. Hypokinesis of the inferioir myocardium Grade 2 diastolic dysfunction. Mitral valve the annulus is mildly calcified. The leaflets are moderately thickened. Thickening. Severe regurgitation. Left atrium is mildly dilated. 4. Former smoker - ICD9: V15.82, ICD10: Z87.891 -Patient quit smoking 1979 Joceline Lovell APRN.CNP Follow up in: 3 months-HFrEF/edema Greater than 50% of this > 20 minute visit was spent face to face discussing current diagnosis and treatment plan consisting of above outlined plan. Follow-up as documented above. I have discussed the recommended treatment, alternative treatments and other treatment options in detail. I have discussed the risks, benefits and side effect of the recommended treatment. I have attempted to answer all their questions to their satisfaction and understanding of the explanation has been voiced. With approval we will pursue the recommended treatment. During this office visit I reviewed the patients previous Cardiac testing and procedures results and reviewed the results with the patient. I, Joceline Lovell CNP have reviewed and agree with the information in the medical record transcribed by Sukhdeep Lozada MA. Joceline Lovell APRN.CNP This patient note was partially generated from using the [employer] voice recognition system. There may be some incorrect words, spelling, and punctuation that were not noted in checking the note prior to saving documented in this encounter [facility] 11-17-2022 Miscellaneous Notes Lab order faxed Thank you Order signed Patient has appointment 11/27/22 with Joceline. Not on a cholesterol medication. Last lipid September 2021 with LDL of 169. LDL in 2019 was 53. Patient called and agreeable to get lipid panel before his office visit. Order entered. Wants faxed to Dr Prater's office [phone] documented in this encounter [facility] 10-30-2022 History of Present illness Narrative [facility] Department of Cardiology Referring Provider: No ref. provider found Date: October 30, 2022 Chief Complaint: Hospital [id number]-[id number] and CHF combination Subjective: Pete Conley is a 72 year old, established male who presents hospital follow-up from 10/02/2022 through 10/05/2022 at [facility] for acute hypoxia due to pneumonia combination and CHF. Patient presents today on 1-1/2 L oxygen by nasal cannula. Denies any shortness of breath. Patient denies any headaches, dizziness, or syncopal episodes. Patient denies any chest pain or chest discomfort. ALLERGIES Allergen Reactions Amlodipine Swelling Aspirin Other: See Comments tacchycardia Victoza [Liraglutid* Other: See Comments PAST MEDICAL HISTORY: PAST MEDICAL HISTORY Diagnosis Date Acute and chronic respiratory failure with hypoxia (HCC) BPH (benign prostatic hyperplasia) Community acquired pneumonia Diabetes (HCC) History of cardiovascular stress test 10/10/2021 -Impression: Enlarging dilated LV and the setting of global hypokinesis. Calculated EF 39%. This may represent the sequela of chronic hypertension or other cardiomyopathy. No images evidence of stress-induced myocardial ischemia. History of echocardiogram 03/18/2021 Echocardiogram demonstrates a suboptimal study. EF 50 to 55%. Moderate concentric LVH. Class I diastolic dysfunction. Left atrium is mildly dilated. Mild a S. Mild to moderate MR. Mild TR. Borderline to mild PHT. History of echocardiogram 10/04/2022 EF 45-50%. Left ventricle cavity size is normal. Wall thickness is normal. Systolic funciton is mildly reduced. Hypokinesis of the anterolateral myocardium. Hypokinesis of the inferioir myocardium Grade 2 diastolic dysfunction. Mitral valve the annulus is mildly calcified. The leaflets are moderately thickened. Thickening. Severe regurgitation. Left atrium is mildly dilated. History of echocardiography 10/07/2021 -Echocardiogram demonstrates of the difficult study with minimal information obtainable. LV is dilated with an EF at 45 to 50%. Diastolic function is indeterminate. Aortic valve is poorly visualized but no evidence for aortic stenosis by Doppler analysis. Moderate mitral annular calcification without hemodynamically significant MS. Mild MR. History of smoking HTN (hypertension) Obstructive sleep apnea on CPAP PAST SURGICAL HISTORY Procedure Laterality Date PAST SURGICAL HISTORY OF Right TMA TONSILLECTOMY HX FAMILY HISTORY Problem Relation Age of Onset Diabetes Father No Known Problems Sister Arrythmias Brother Diabetes Brother Diabetes Sister Heart disease Sister SOCIAL HISTORY: Tobacco Use: 1 packs/day, for 14 years. Quit 08/20/1979. 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 hydrALAZINE (APRESOLINE) 50 mg tablet Take 1 tablet by mouth three times daily. Take one tablet in the morning, noon, and evening. (Patient taking differently: Take 50 mg by mouth twice daily.) bumetanide (BUMEX) 1 mg tablet Take 1 mg by mouth as needed. albuterol HFA (PROVENTIL HFA, VENTOLIN HFA) 90 mcg/actuation inhaler INHALE 1-2 PUFFS INTO LUNGS EVERY FOUR HOURS NEEDED FOR SHORTNESS OF BREATH/WHEEZING allopurinol (ZYLOPRIM) 100 mg tablet Take 100 mg by mouth once daily. glipiZIDE (GLUCOTROL) 5 mg tablet Take 10 mg by mouth twice daily. tamsulosin ER (FLOMAX) 0.4 mg Take 0.4 mg by mouth once daily. pioglitazone (ACTOS) 30 mg tablet Take 30 mg by mouth once daily. hydrALAZINE (APRESOLINE) 25 mg tablet Take 50 mg by mouth three times daily. Take at noon (Patient not taking: Reported on 10/30/2022) carvedilol (COREG) 6.25 mg tablet Take 1 tablet by mouth twice daily. (Patient not taking: Reported on 10/30/2022) amLODIPine (NORVASC) 10 mg tablet Take 10 mg by mouth once daily. (Patient not taking: No sig reported) No current facility-administered medications for this visit. I have personally reviewed the patients past medical history including social, family, surgical, diagnostics, and medications./AB REVIEW OF SYSTEMS: Review of Systems Constitutional: Negative for chills and fatigue. Respiratory: Negative for chest tightness and shortness of breath. Cardiovascular: Negative for chest pain, palpitations and leg swelling. Neurological: Negative for dizziness, syncope, weakness and light-headedness. Hematological: Does not bruise/bleed easily. Psychiatric/Behavioral: Negative for confusion and hallucinations. Vitals: BP 172/68 (BP Site: Left Arm, BP Position: Sitting, BP Cuff Size: Large Adult) Pulse 74 Ht 180.3 cm (5' 11) Wt 122.5 kg (270 lb) SpO2 97% BMI 37.66 kg/m PHYSICAL EXAMINATION: BP 172/68 (BP Site: Left Arm, BP Position: Sitting, BP Cuff Size: Large Adult) Pulse 74 Ht 180.3 cm (5' 11) Wt 122.5 kg (270 lb) SpO2 97% BMI 37.66 kg/m Last 3 Encounter BP Readings: Date: BP: 07/03/2022 188/81 05/23/2022 172/76 03/28/2022 212/99 Last 3 Encounter Pulse Readings: Date: Pulse: 07/03/2022 76 05/23/2022 66 03/28/2022 71 Last 3 Encounter Wt Readings: Date: Wt: 07/03/2022 124.7 kg (275 lb) 05/23/2022 124.7 kg (275 lb) 03/28/2022 124.1 kg (273 lb 9.6 oz) Physical Exam Vitals reviewed. Constitutional: General: He is not in acute distress. Appearance: He is not ill-appearing or diaphoretic. Cardiovascular: Rate and Rhythm: Normal rate and regular rhythm. Pulses: Carotid pulses are 2+ on the right side and 2+ on the left side. Radial pulses are 2+ on the right side and 2+ on the left side. Femoral pulses are 2+ on the right side and 2+ on the left side. Popliteal pulses are 2+ on the right side and 2+ on the left side. Dorsalis pedis pulses are 2+ on the right side and 2+ on the left side. Posterior tibial pulses are 2+ on the right side and 2+ on the left side. Heart sounds: Murmur heard. Systolic murmur is present with a grade of 2/6. Comments: PMI not displaced. 2nd heart sound loud. Pulmonary: Effort: Pulmonary effort is normal. Breath sounds: Normal breath sounds. No wheezing or rhonchi. Abdominal: General: Abdomen is flat. Bowel sounds are normal. Palpations: Abdomen is soft. Tenderness: There is no abdominal tenderness. There is no guarding. Musculoskeletal: Right lower leg: Edema present. Left lower leg: Edema present. Skin: General: Skin is warm. Coloration: Skin is not jaundiced or pale. Findings: No bruising, rash or wound. Neurological: Mental Status: He is alert and oriented to person, place, and time. Motor: No weakness. Coordination: Coordination is intact. LABS: Glucose (mg/dL) Date Value 10/12/2021 403 Potassium (mmol/L) Date Value 10/12/2021 5.2 Sodium (mmol/L) Date Value 10/12/2021 133 Chloride (mmol/L) Date Value 10/12/2021 96 CO2 (mmol/L) Date Value 10/12/2021 22 Creatinine (mg/dL) Date Value 10/12/2021 3.07 BUN (mg/dL) Date Value 10/12/2021 81 Anion Gap (mmol/L) Date Value 10/12/2021 20.2 Calcium (mg/dL) Date Value 10/12/2021 9.0 Protein, Total (g/dL) Date Value 10/09/2021 6.4 Albumin (g/dL) Date Value 10/09/2021 3.1 Bilirubin, Total (mg/dL) Date Value 10/09/2021 0.5 Alkaline Phosphatase (U/L) Date Value 10/09/2021 62 AST (U/L) Date Value 10/09/2021 26 ALT (U/L) Date Value 10/09/2021 11 Hemoglobin (g/dL) Date Value 10/12/2021 15.2 Hematocrit (%) Date Value 10/12/2021 46.2 WBC (x10(3)) Date Value 10/12/2021 7.9 Cholesterol, Total (mg/dL) Date Value 10/07/2021 223 HDL Cholesterol (mg/dL) Date Value 10/07/2021 35 LDL (mg/dL) Date Value 10/07/2021 169 Triglyceride (mg/dL) Date Value 10/07/2021 96 EKG: Sinus rhythm with PVCs, right bundle branch block, HR 74 DIAGNOSTIC RESULTS: ASSESSMENT/PLAN: 1. Hospital discharge follow-up - ICD9: V67.59, ICD10: Z09 (primary diagnosis) Patient was hospitalized at [facility] from 10/02/2022 through 10/05/2022 for acute hypoxia likely due to combination of pneumonia and CHF. Patient was discharged on 2 L oxygen via nasal cannula. Which he wears continuously. - ECG COMPLETE 2. Chronic HFrEF (heart failure with reduced ejection fraction) (HCC) - ICD9: 428.22, ICD10: I50.22 -Per echocardiogram from 10/04/2022 EF 45-50%. -Patient denies any chest pain or chest pressure -Restart carvedilol 6.25 twice daily - CARVEDILOL 6.25 MG TABLET 3. Benign hypertension - ICD9: 401.1, ICD10: I10 - suboptimal control -Today's blood pressure is 172/68 -Goal blood pressure < 140/90 -Patient reports he has not been taking hydralazine 3 times a day day as directed by Dr. Alexander from his May office visit 05/23/2022. He wants to stay at the twice daily dose. Patient also has not been taking the carvedilol 6.25 dose that has been ordered. -Continue hydralazine 50 mg twice daily -Restart carvedilol 6.25 twice daily - schedule IV week follow-up to recheck BP 4. SOB (shortness of breath) - ICD9: 786.05, ICD10: R06.02 -Patient reports shortness of breath has resolved since being on oxygen 2 L via nasal cannula -Followed and managed by Dr. Bauer, pulmonary 5. Oxygen dependent - ICD9: V46.2, ICD10: Z99.81 -Currently using 2 L oxygen via nasal cannula -SPO2 97% in office today 6. Generalized edema - ICD9: 782.3, ICD10: R60.1 -Stable BLE edema -Continue Bumex 1 mg as needed -Recommend elevation of legs. 7. History of echocardiogram - ICD9: V15.89, ICD10: Z92.89 -Recent echocardiogram from 10/04/2022 -EF 45-50% -Echocardiogram demonstrates of the difficult study with minimal information obtainable. LV is dilated with an EF at 45 to 50%. Diastolic function is indeterminate. Aortic valve is poorly visualized but no evidence for aortic stenosis by Doppler analysis. Moderate mitral annular calcification without hemodynamically significant MS. Mild MR. 8. Former smoker - ICD9: V15.82, ICD10: Z87.891 -Patient quit smoking 1979 Joceline Lovell APRN.CNP Follow up in: 4 weeks-recheck BP Greater than 50% of this > 20 minute visit was spent face to face discussing current diagnosis and treatment plan consisting of above outlined plan. Follow-up as documented above. I have discussed the recommended treatment, alternative treatments and other treatment options in detail. I have discussed the risks, benefits and side effect of the recommended treatment. I have attempted to answer all their questions to their satisfaction and understanding of the explanation has been voiced. With approval we will pursue the recommended treatment. During this office visit I reviewed the patients previous Cardiac testing and procedures results and reviewed the results with the patient. I, Joceline Lovell CNP have reviewed and agree with the information in the medical record transcribed by Sukhdeep Lozada MA. Joceline Lovell APRN.CRISELDA This patient note was partially generated from using the [employer] voice recognition system. There may be some incorrect words, spelling, and punctuation that were not noted in checking the note prior to saving documented in this encounter [facility] 10-08-2022 Note . MICRO - Microbiology PROCEDURE: Blood Culture (bacterial) [*1] SOURCE: Blood BODY SITE: COLLECTED DATE/TIME: 10/02/2022 11:25 EST RECEIVED DATE/TIME: 10/02/2022 23:19 EST START DATE/TIME: 10/02/2022 23:19 EST FREE TEXT SOURCE: FINAL REPORTS Final Report [] Verified Date/Time/Personnel: 10/07/2022 23:59 EST Blood Culture: No Growth at 5 days. PRELIMINARY REPORTS Preliminary Report [] Verified Date/Time/Personnel: 10/02/2022 23:59 EST Culture has been received in lab and is no growth to date. Routine cultures are held for 5 days. Performing Locations *1: This test was performed at: [address], [facility] , [facility] ([place]) 10-08-2022 Note . MICRO - Microbiology PROCEDURE: Blood Culture (bacterial) [*1] SOURCE: Blood BODY SITE: COLLECTED DATE/TIME: 10/02/2022 11:15 EST RECEIVED DATE/TIME: 10/02/2022 23:19 EST START DATE/TIME: 10/02/2022 23:19 EST FREE TEXT SOURCE: FINAL REPORTS Final Report [] Verified Date/Time/Personnel: 10/07/2022 23:59 EST Blood Culture: No Growth at 5 days. PRELIMINARY REPORTS Preliminary Report [] Verified Date/Time/Personnel: 10/02/2022 23:59 EST Culture has been received in lab and is no growth to date. Routine cultures are held for 5 days. Performing Locations *1: This test was performed at: [address], [facility] , [facility] ([place]) 10-05-2022 Hospital Discharge instructions Patient Education 10/05/2022 13:59:12 Heart Failure, Diagnosis, [id number] Heart Failure, Diagnosis Heart failure means that your heart is not able to pump blood in the right way. This makes it hard for your body to work well. Heart failure is usually a long-term (chronic) condition. You must take good care of yourself and follow your treatment plan from your doctor. What are the causes? This condition may be caused by: High blood pressure. Build up of cholesterol and fat in the arteries. Heart attack. This injures the heart muscle. Heart valves that do not open and close properly. Damage of the heart muscle. This is also called cardiomyopathy. Lung disease. Abnormal heart rhythms. What increases the risk? The risk of heart failure goes up as a person ages. This condition is also more likely to develop in people who: Are overweight. Are male. Smoke or chew tobacco. Abuse alcohol or illegal drugs. Have taken medicines that can damage the heart. Have diabetes. Have abnormal heart rhythms. Have thyroid problems. Have low blood counts (anemia). What are the signs or symptoms? Symptoms of this condition include: Shortness of breath. Coughing. Swelling of the feet, ankles, legs, or belly. Losing weight for no reason. Trouble breathing. Waking from sleep because of the need to sit up and get more air. Rapid heartbeat. Being very tired. Feeling dizzy, or feeling like you may pass out (faint). Having no desire to eat. Feeling like you may vomit (nauseous). Peeing (urinating) more at night. Feeling confused. How is this treated? This condition may be treated with: Medicines. These can be given to treat blood pressure and to make the heart muscles stronger. Changes in your daily life. These may include eating a healthy diet, staying at a healthy body weight, quitting tobacco and illegal drug use, or doing exercises. Surgery. Surgery can be done to open blocked valves, or to put devices in the heart, such as pacemakers. A donor heart (heart transplant). You will receive a healthy heart from a donor. Follow these instructions at home: Treat other conditions as told by your doctor. These may include high blood pressure, diabetes, thyroid disease, or abnormal heart rhythms. Learn as much as you can about heart failure. Get support as you need it. Keep all follow-up visits as told by your doctor. This is important. Summary Heart failure means that your heart is not able to pump blood in the right way. This condition is caused by high blood pressure, heart attack, or damage of the heart muscle. Symptoms of this condition include shortness of breath and swelling of the feet, ankles, legs, or belly. You may also feel very tired or feel like you may vomit. You may be treated with medicines, surgery, or changes in your daily life. Treat other health conditions as told by your doctor. This information is not intended to replace advice given to you by your health care provider. Make sure you discuss any questions you have with your health care provider. Document Released: 05/15/2009 Document Revised: 10/24/2019 Document Reviewed: 10/24/2019 [employer] Patient Education 2020 [employer]. Follow Up Care 10/02/2022 15:02:56 With:[facility]) is your oxygen provider. If you have any questions or concerns, please call [phone]. Address:Unknown When: Unknown With:MOISES PRATER MD Address: [facility] [address] [place] [address]- When:1-2 days Comments:Please call the office to schedule a follow up appointment [facility] 10-05-2022 Discharge summary Date of Service 10/05/2022 Discharge Diagnosis 1. Acute hypoxia, likely due to combination of pneumonia and CHF. 2. Community-acquired pneumonia. 3. 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 4. Diabetes mellitus type 2. 5. Hypertension. 6. BPH. 7. Chronic kidney disease stage IV. 8. Obstructive sleep apnea on CPAP at night. 9. History of smoking. 10. Severe obesity with BMI of 37. Hypertensive heart and chronic kidney disease with heart failure and stage 1 through stage 4 chronic kidney disease, or unspecified chronic kidney disease (I13.0 - ICD-10-CM) Hypertensive heart and chronic kidney disease with heart failure and stage 1 through stage 4 chronic kidney disease, or unspecified chronic kidney disease (I13.0 - ICD-10-CM) Pneumonia, unspecified organism (J18.9 - ICD-10-CM) Chronic pulmonary edema (J81.1 - ICD-10-CM) Chronic kidney disease, stage 4 (severe) (N18.4 - ICD-10-CM) Type 2 diabetes mellitus with diabetic chronic kidney disease (E11.22 - ICD-10-CM) Benign prostatic hyperplasia without lower urinary tract symptoms (N40.0 - ICD-10-CM) Heart failure, unspecified (I50.9 - ICD-10-CM) Obstructive sleep apnea (adult) (pediatric) (G47.33 - ICD-10-CM) Additional Orders: Other status: BMP,10/05/22 5:00:00 EST, Next AM Draw (one day only), Blood, Once, Stop date 10/05/22 5:00:00 EST(Complete) Ordered: Discharge,10/05/22 8:43:00 EST, Discharged to: Home Ordered: Discharge Activity,Resume your pre-hospitalization activity, 10/05/22 8:43:00 EST Ordered: Discharge Diet,Follow the diet changes as instructed by the dietitian, 10/05/22 8:43:00 EST Ordered: Discharge Outpatient Labwork,BMP, CKD, follow-up within: 1-3 days, Results Notify to: MOISES PRATER MD, 10/05/22 8:44:00 EST Other status: Discharge Oxygen Therapy,Oxygen (CONTINUOUS) Concentrator, Mobile in the Home Portable O2, Nasal Cannula, 2 liters per minute, 3 month(s), CAP, hypoxia, 10/05/22 8:43:00 EST(Complete) Ordered: cefdinir 300 mg oral capsule,Dose : 300 mg = 1 cap(s), Oral, qDay, X 7 day(s), # 7 cap(s), 0 Refill(s), 10/12/22 8:40:00 EST, Pharmacy: [facility], 180.3, cm, 10/02/22 19:14:00 EST, Height, 121.6 Hospital Course 72-year-old male with multiple medical problems listed above presented to the hospital complaining of shortness of breath, was found to have pneumonia, clinical picture of CHF exacerbation, patient did receive IV antibiotics, oxygen supplementation, breathing treatments, diuretics, echocardiogram showed mildly reduced EF, diastolic dysfunction and some hypokinesis, 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 During the hospital stay, patient's shortness of breath is improving, patient's oxygen requirements were decreasing, however multiple trials to wean the patient off the oxygen were unsuccessful, where the patient oxygenation dropped to the mid 80s off the oxygen, therefore patient will be discharged home on 2 L of oxygen for the next couple of weeks. Patient was examined and evaluated by me today he was awake alert and oriented x3, denying any chest pain shortness breath cough fever chills, denied abdominal pain nausea or vomiting, no headache lightheadedness or dizziness, patient was tolerating diet fairly well, patient will be discharged home today, the discharge plan was discussed with him, also discussed with his son all their questions were answered, all their concerns were addressed. Allergies aspirin Procedures None Consults No qualifying data available. Imaging Results and Diagnostics Please see [facility] Objective Vitals and Measurements T: 36.4 C (Oral) TMIN: 36.1 C (Oral) TMAX: 36.6 C (Oral) HR: 71 RR: 20 BP: 165/68 SpO2: 94% Weight Dosing Weight: 121.6 kg (10/02/22) Head: atraumatic normocephalic Neck: supple no JVD Lungs: Diminished breath sounds in lower lung payne bilaterally, no wheezes no accessory muscle use. Heart: S1-S2 regular rate and rhythm, no murmurs Abdomen: soft nontender nondistended, bowel sounds are present all 4 quadrants Lower extremities: no cyanosis, no chronic skin changes, pulse palpable +1 bilaterally, +1 edema, right metatarsal amputation Skin: showed no rash Neurological: patient is awake alert and oriented 3, no focal neurological deficit Pending Labs and Studies BMP in 2 to 3 days Code Status Code Status - Ordered -- 10/02/22 21:34:00 EST, Full Code, Constant Order Admission Date 10/02/2022 Discharge Date 10/05/2022 Medications New Prescription cefdinir (cefdinir 300 mg oral capsule)1 cap by mouth once a day for 7 Days. Refills: 0. Changed bumetanide (bumetanide 1 mg oral tablet)1 tab(s) by mouth every other day. glipiZIDE (glipiZIDE 10 mg oral tablet)1 tab(s) by mouth two (2) times daily before meals. pioglitazone (pioglitazone 45 mg oral tablet)1 tab(s) by mouth every day. Unchanged cholecalciferol (Vitamin D3)1,250 Microgram by mouth every day. [id number] Milligram by mouth three (3) times a day. tamsulosin0.4 Milligram by mouth once a day. Follow Up Follow Up with Deedee Pierre) is your oxygen provider. If you have any questions or concerns, please call [phone]. When Follow Up with MOISES PRATER MD When Within 1-2 days Why: Please call the office to schedule a follow up appointment Where: [address] [place] [address]- Follow Up Appointments No qualifying data available. Follow Up Labs/Studies Discharge Labs Discharge Outpatient Labwork - Ordered -- BMP, CKD, follow-up within: 1-3 days, Results Notify to: MOISES PRATER MD, 10/05/22 8:44:00 EST Discharge Studies No Follow-up Studies Discharge Diet Discharge Diet - Ordered -- Follow the diet changes as instructed by the dietitian, 10/05/22 8:43:00 EST Discharge Activity Discharge Activity - Ordered -- Resume your pre-hospitalization activity, 10/05/22 8:43:00 EST Condition on Discharge Stable Readmission Risk/Palliative Score LACE Score: 7 (10/03/22 09:02:00) Palliative Total Score: 1 (10/03/22 09:01:00) Discharge Disposition Home Time Spent 36 minutes Digitally Signed by MARIAM PICKENS MD on 10/05/2022 02:32 PM [facility] 10-05-2022 Note Discharge Instructions Thank you for allowing [facility] to assist you with your healthcare needs. The following is important discharge information regarding your hospital visit. Your Care Team MOISES PRATER MD What to do next Follow Up Appointments Follow Up with Deedee Pierre) is your oxygen provider. If you have any questions or concerns, please call [phone]. When Follow Up with MOISES PRATER MD When Within 1-2 days Why: Please call the office to schedule a follow up appointment Where: [address] [place] [address]- The Following Activity and Diet Have Been Ordered for You Discharge Activity - Ordered -- Resume your pre-hospitalization activity, 10/05/22 8:43:00 EST Discharge Diet - Ordered -- Follow the diet changes as instructed by the dietitian, 10/05/22 8:43:00 EST The Following Equipment Has Been Ordered for You No qualifying data available. The Following Treatments Have Been Ordered for You Discharge Labs Discharge Outpatient Labwork - Ordered -- BMP, CKD, follow-up within: 1-3 days, Results Notify to: MOISES PRATER MD, 10/05/22 8:44:00 EST Discharge Radiology No qualifying data available. Other Therapies No qualifying data available. Post Acute Orders No qualifying data available. Someone Will Contact You Regarding These Home Health Referrals No home referrals have been ordered for you. No one will call you. Allergies aspirin Immunizations This Visit Not Given Vaccine Commentsinfluenza virus vaccine, inactivated Patient Refuses Medications Please ask your primary doctor or pharmacist before taking any other medication not listed, including over the counter drugs, herbal medications, vitamins and or supplements as they may interact with your home medications. What How Much When Instructions Last Dose New cefdinir (cefdinir 300 mg oral capsule) 1 cap by mouth Once a day Duration: 7 Days Pickup at [facility] Changed bumetanide (bumetanide 1 mg oral tablet) 1 tab(s) by mouth Every other day Changed glipiZIDE (glipiZIDE 10 mg oral tablet) 1 tab(s) by mouth Two (2) times daily before meals Changed pioglitazone (pioglitazone 45 mg oral tablet) 1 tab(s) by mouth Every day Unchanged cholecalciferol (Vitamin D3) 1,250 Microgram by mouth Every day Unchanged hydrALAZINE 50 Milligram by mouth Three (3) times a day Unchanged tamsulosin 0.4 Milligram by mouth Once a day Pharmacy Information [facility]: [address] [place] [address] [phone] Please take this list to your next doctor s visit. Bring all medications you take, including over the counter medications, herbals and other supplements with you to your doctor s visit. Patients and families are reminded to discard old lists and to update any records with all medication providers or retail pharmacies. Education Materials Heart Failure, Diagnosis Heart failure means that your heart is not able to pump blood in the right way. This makes it hard for your body to work well. Heart failure is usually a long-term (chronic) condition. You must take good care of yourself and follow your treatment plan from your doctor. What are the causes? This condition may be caused by: High blood pressure. Build up of cholesterol and fat in the arteries. Heart attack. This injures the heart muscle. Heart valves that do not open and close properly. Damage of the heart muscle. This is also called cardiomyopathy. Lung disease. Abnormal heart rhythms. What increases the risk? The risk of heart failure goes up as a person ages. This condition is also more likely to develop in people who: Are overweight. Are male. Smoke or chew tobacco. Abuse alcohol or illegal drugs. Have taken medicines that can damage the heart. Have diabetes. Have abnormal heart rhythms. Have thyroid problems. Have low blood counts (anemia). What are the signs or symptoms? Symptoms of this condition include: Shortness of breath. Coughing. Swelling of the feet, ankles, legs, or belly. Losing weight for no reason. Trouble breathing. Waking from sleep because of the need to sit up and get more air. Rapid heartbeat. Being very tired. Feeling dizzy, or feeling like you may pass out (faint). Having no desire to eat. Feeling like you may vomit (nauseous). Peeing (urinating) more at night. Feeling confused. How is this treated? This condition may be treated with: Medicines. These can be given to treat blood pressure and to make the heart muscles stronger. Changes in your daily life. These may include eating a healthy diet, staying at a healthy body weight, quitting tobacco and illegal drug use, or doing exercises. Surgery. Surgery can be done to open blocked valves, or to put devices in the heart, such as pacemakers. A donor heart (heart transplant). You will receive a healthy heart from a donor. Follow these instructions at home: Treat other conditions as told by your doctor. These may include high blood pressure, diabetes, thyroid disease, or abnormal heart rhythms. Learn as much as you can about heart failure. Get support as you need it. Keep all follow-up visits as told by your doctor. This is important. Summary Heart failure means that your heart is not able to pump blood in the right way. This condition is caused by high blood pressure, heart attack, or damage of the heart muscle. Symptoms of this condition include shortness of breath and swelling of the feet, ankles, legs, or belly. You may also feel very tired or feel like you may vomit. You may be treated with medicines, surgery, or changes in your daily life. Treat other health conditions as told by your doctor. This information is not intended to replace advice given to you by your health care provider. Make sure you discuss any questions you have with your health care provider. Document Released: 05/15/2009 Document Revised: 10/24/2019 Document Reviewed: 10/24/2019 Elsevier Patient Education 2020 [employer] Additional Information VACCINATE! IT SAVES LIVES! Members of the community who have not yet received the COVID-19 vaccine and would like to receive it can visit one of [facility] vaccine clinics. There are many vaccine clinic locations within the [facility]. For locations and available times, please visit [email or web address].[place].gov/. It is important to note that some COVID mobile vaccine clinics are held outdoors and may be canceled in rainy or stormy conditions. To learn more about pediatric vaccinations (ages 5-11), we invite you to visit the [facility] webpage. [email or web address]://[email or web address].org/pa [email or web address]-Freque [email or web address].html To learn more about the COVID-19 vaccine, we invite you to visit the CDC website for a list of frequently asked questions. https://www.cdc.gov/coronavirus/2 019-ncov/vaccines/faq.html [facility] Patient Portal Access Instructions: Stay connected with your healthcare team and access your personal medical information anytime with the [facility] Patient Portal.If you would like a full copy of your medical records, please contact the [facility] Medical Records Department, Sunday through Sunday between 8a.m. and 4:30p.m. Please follow the directions below to access the portal: 1.Access the email account you provided upon registration to the hospital.2.Look for an invitation email from [facility].3.Open the email and access the invitation link: Accept Invitation to [facility]4.Fill in the required payne to create your account. Sign into [email or web address] with your username and password that you created in the above steps to stay up to date. You can then view a summary of results, a summary of your visits, and the ability to download your summaries to your computer or send the information securely to a physician. Remember that your healthcare information is confidential, so carefully consider who you will allow to register on the [facility] Patient Portal for access to your information. You can also access the [facility] Patient Portal on the [employer] robi. Simply click on Health Records under Health Data and then click on the Sn[employer] logo. HOW TO SAFELY DISPOSE OF PRESCRIPTION MEDICATIONS Please use one of the following methods to safely dispose of your unused medications. 1.Use a drug disposal kit: the drug disposal pouch allows you to safely discard your old and unused drugs. Ask your nurse to give you one when you are discharged.2.Visit a local take-back location: Many local pharmacies and police departments have programs that collect old and unwanted prescription drugs. Call your local pharmacy or go to http://[employer].Impraise/2T0Fe6a to find one close to you.3.Make use of household items: Use cat litter or old coffee grounds to dispose medications if other options are not available. Mix your drugs with these household products, seal them in an airtight container and throw it into the garbage. Call [facility]: [phone] to be sure your drugs can be disposed of in this way. Some medicines may require a different approach.4.Never flush your medications down the toilet. IF YOU HAVE BEEN PRESCRIBED AN OPIOID FOR PAIN If you have been prescribed an opioid (such as hydrocodone, oxycodone or morphine), it is critical to understand the possible side effects and risks of opioid pain medications. Even when taken as directed, opioids can have several side effects including: Tolerance, meaning you might need to take more of a medication for the same pain relief. Nausea, vomiting and/or constipation. Sleepiness, dizziness, dry mouth, confusion, depression or itching. Physical dependence, meaning you have withdrawal symptoms when a medication is stopped, can develop within a few days. KNOW YOUR RESPONSIBILITIES It is important to know exactly how much and how often to take the opioid pain medications you are prescribed. Never take opioids in higher amounts or more often than prescribed. Do not combine opioids with alcohol or other drugs that cause drowsiness, such as benzodiazepines, also known as benzos, including diazepam and alprazolam, muscle relaxants or sleep aids. Never sell or share prescription opioids. This is illegal. Store opioids in a secure place and out of reach of others (including children, family, friends and visitors). The last page of this document has been signed and retained as a CHART COPY. Signatures Patient Education Materials Heart Failure, Diagnosis, [id number] Medication Leaflets My discharge plan and instructions have been reviewed and explained to me and I,PETE CONLEY understand my current condition and have read and understand these discharge instructions. I have received a written copy of the plan/instructions. If I have questions, I am aware that I should contact my doctor. Patient/Medicaid Collection Specialist Signature: Date/Time: Relationship to Patient: ____ Witness Name/Signature: Date/Time: [facility] 10-04-2022 Note Subjective: Patient seen for pneumonia, possible CHF exacerbation patient was examined and evaluated today, patient denies chest pain, patient still having shortness of breath, especially on exertion, still on oxygen supplementation, denying any abdominal pain nausea or vomiting, he stated that his cough is a little bit better, denying any headache or lightheadedness. Vitals Signs(Last 24 hrs)__Last Charted Minimum M aximum Temp36.7(OCT 04 10:19)36.7(OCT 04:19)36.5(OCT 03 15:47) Heart Rate75(OCT 04 06:59)75(OCT 04 06:59)75(OCT 04 06:59) Resp Rate20(OCT 04 10:19)18(OCT 03 22:16)20(OCT 03 15:47) SBPH 168(OCT 04:19)130(OCT 03 22:16)H 172(OCT 04 06:41) DBP68(OCT 04 10:19)C 47(OCT 04 04:31)78(OCT 04 06:41) Physical examination: HEENT, is atraumatic normocephalic, pupils are equal, no pallor Neck supple no JVD Lungs scattered crackles in lower lung payne with rhonchi, no wheezes, no accessory muscle use Heart S1-S2 regular Abdomen soft nontender nondistended bowel sounds are present all 4 quadrants Lower extremities show +1 edema, no cyanosis, pulses palpable +2 bilaterally, patient does have a right metatarsal amputation of his right foot Skin showed no rash Neurological examination patient is awake alert and oriented 3, cranial nerves are grossly intact, no focal neurological defect could be appreciated Assessment and plan: 1. Acute hypoxia, likely due to combination of pneumonia and CHF exacerbation. 2. Community-acquired pneumonia. 3. Clinical picture of congestive heart failure exacerbation, unknown type, echo is pending 4. Diabetes mellitus type 2. 5. Hypertension. 6. BPH. 7. Chronic kidney disease stage IV. 8. Obstructive sleep apnea on CPAP at night. 9. History of smoking. 10. Severe obesity with BMI around 37. Plan: 1. I will continue the patient on IV antibiotics Rocephin, DC the doxycycline since the atypical pathogen testing came back negative 2. I will continue the patient's oxygen supplementation, breathing treatments, I will add incentive spirometer and Acapella, encourage ambulation. 3. Continue with the CPAP at night 4. Continue with Accu-Cheks before meals and at bedtime, sliding scale with insulin. 5. Continue with heparin for DVT prophylaxis 6. Proceed with an echocardiogram, to further evaluate the heart and the EF. 7. Continue to monitor patient clinically as well as his labs Patient understood his plan of care all his questions were answered, his concerns were addressed. Labs: Basic Metabolic Profile Glucose Level: 71 mg/dL Low (10/04/22 06:45:00) Sodium Level: 142 mEq/L (10/04/22 06:45:00) Potassium Level: 5 mEq/L (10/04/22 06:45:00) Chloride: 110 mEq/L (10/04/22 06:45:00) CO2: 27 mEq/L (10/04/22 06:45:00) BUN/Creatinine Ratio: 16.5 ratio (10/04/22 06:45:00) Complete Blood Count WBC: 4.8 10^3/mcL (10/04/22 06:45:00) RBC: 3.93 10^6/mcL Low (10/04/22 06:45:00) Hgb: 12.5 G/dL Low (10/04/22 06:45:00) Hct: 39.1 % Low (10/04/22 06:45:00) MCV: 99.5 fL (10/04/22 06:45:00) MCH: 31.9 pg (10/04/22 06:45:00) MCHC: 32.1 G/dL (10/04/22 06:45:00) RDW: 14.9 % (10/04/22 06:45:00) Platelet: 145 10^3/mcL Low (10/04/22 06:45:00) MPV: 8.4 fL (10/04/22 06:45:00) Medications (10) Active Scheduled: (5) bumetanide 1 mg tablet 1 mg 1 tab(s), Oral, Every other day cefTRIAXone IVP syringe 2 gram(s) 20 mL, IV Push (INT), qDay glipizide 5 mg Tablet 10 mg 2 tab(s), Oral, BID hydralazine 50 mg Tablet 50 mg 1 tab(s), Oral, TID tamsulosin 0.4 mg Capsule 0.4 mg 1 cap(s), Oral, qDay Continuous: (0) PRN: (5) acetaminophen 325 mg Tablet 650 mg 2 tab(s), Oral, q6hWA melatonin 3 mg tablet 3 mg 1 tab(s), Oral, qHS melatonin 3 mg tablet 3 mg 1 tab(s), Oral, qHS ondansetron 2 mg/ 1 mL 2 mL INJ 4 mg 2 mL, IV Push, q4h ondansetron 4 mg DIS tablet 4 mg 1 tab(s), Oral, q6h Signature: Mariam Pickens MD Digitally Signed by MARIAM PICKENS MD on 10/04/2022 03:29 PM [facility] 10-03-2022 Note . MICRO - Microbiology PROCEDURE: Streptococcus Pneumoniae Urine Antig [^1 *1] SOURCE: Urine, Clean Catch BODY SITE: COLLECTED DATE/TIME: 10/02/2022 22:48 EST RECEIVED DATE/TIME: 10/03/2022 07:31 EST START DATE/TIME: 10/03/2022 07:31 EST FREE TEXT SOURCE: FINAL REPORTS Final Report [] Verified Date/Time/Personnel: 10/03/2022 08:08 EST Presumptive negative for pneumococcal pneumonia, suggesting no current or recent pneumococcal infection. Infection due to Strep pneumoniae cannot be ruled out since the antigen present in the sample may be below the detection limit of the test. Interpretive Data ^1: Streptococcus Pneumoniae Urine Antig This test has not been evaluated on patients taking antibiotics for greater than 24 hours or on patients who have recently completed an antibiotic regimen. The accuracy of this test has not been proven in young children. Performing Locations *1: This test was performed at: [address], [facility] , [facility]) 10-03-2022 Note . MICRO - Microbiology PROCEDURE: Legionella Urine Ag [*1] SOURCE: Urine BODY SITE: COLLECTED DATE/TIME: 10/02/2022 22:48 EST RECEIVED DATE/TIME: 10/03/2022 07:31 EST START DATE/TIME: 10/03/2022 07:31 EST FREE TEXT SOURCE: FINAL REPORTS Final Report [] Verified Date/Time/Personnel: 10/03/2022 08:08 EST Presumptive negative for L. pneumophila serogroup 1 antigen in urine, suggesting no recent or current infection. Legionnaire's disease cannot be ruled out since other serogroups and species may also cause disease. Performing Locations *1: This test was performed at: [address], [facility] , [facility] ([place]) 10-03-2022 Note Subjective: Patient seen for pneumonia, possible CHF exacerbation patient was examined and evaluated today, patient denies chest pain, patient still having shortness of breath at rest, and it gets worse on any exertion including talking, still on oxygen supplementation, which he does not use at home usually, he is still having cough which is productive to greenish sputum, no abdominal pain no nausea or vomiting, no headache lightheadedness or dizziness, patient is feeling weak tired and fatigued Vitals Signs(Last 24 hrs)__Last Charted Minimum M aximum Temp36.8(OCT 03 06:41)36.8(OCT 03 06:41)36.6(OCT 02 21:11) Heart Rate75(OCT 03 06:41)75(OCT 03 06:41)81(OCT 02 21:11) Resp Rate20(OCT 03 06:41)20(OCT 03 02:32)H 22(FEB 13 21:11) SBPH 156(OCT 03 06:41)132(OCT 03 00:51)H 192(OCT 02 21:11) DBP71(OCT 03 06:41)L 55(OCT 03 00:51)88(OCT 02 22:18) Physical examination: HEENT, is atraumatic normocephalic, pupils are equal, no pallor Neck supple no JVD Lungs scattered crackles in lower lung payne with rhonchi, no wheezes, no accessory muscle use Heart S1-S2 regular Abdomen soft nontender nondistended bowel sounds are present all 4 quadrants Lower extremities show +1 edema, no cyanosis, pulses palpable +2 bilaterally, patient does have a right metatarsal amputation of his right foot Skin showed no rash Neurological examination patient is awake alert and oriented 3, cranial nerves are grossly intact, no focal neurological defect could be appreciated Assessment and plan: 1. Acute hypoxia, likely due to combination of pneumonia and CHF exacerbation. 2. Community-acquired pneumonia. 3. Clinical picture of congestive heart failure exacerbation, unknown type, echo is pending 4. Diabetes mellitus type 2. 5. Hypertension. 6. BPH. 7. Chronic kidney disease stage IV. 8. Obstructive sleep apnea on CPAP at night. 9. History of smoking. 10. Severe obesity with BMI around 37. Plan: 1. I will continue the patient on IV antibiotics with doxycycline and Rocephin, Legionella antigen is negative, Streptococcus pneumonia antigen all is also negative, mycoplasma is still pending, 2. I will continue the patient's oxygen supplementation, breathing treatments, I will add incentive spirometer and Acapella, encourage ambulation. 3. Patient will need to use his CPAP at night, since he uses that at home for his sleep apnea, patient does have an extensive history of smoking in the past, he smoked more than 1 pack a day for more than 20 years, patient will need pulmonary function test as an outpatient to rule out any underlying emphysema or COPD. 4. Continue with Accu-Cheks before meals and at bedtime, sliding scale with insulin. 5. Start the patient's on heparin for DVT prophylaxis. 6. Proceed with an echocardiogram, to further evaluate the heart and the EF. 7. Continue to monitor patient clinically as well as his labs, labs are pending at the time of this dictation. Patient understood his plan of care all his questions were answered, his concerns were addressed. Labs: No qualifying data available.No qualifying data available.Medications (11) Active Scheduled: (6) cefTRIAXone IVP syringe 2 gram(s) 20 mL, IV Push (INT), qDay doxycycline hyclate 100 mg Capsule 100 mg 1 cap(s), Oral, q12h glipizide 5 mg Tablet 10 mg 2 tab(s), Oral, BID hydralazine 50 mg Tablet 50 mg 1 tab(s), Oral, TID influenza virus vaccine, inactivated high-dose preservative-free quadrivalent Susp 0.7 mL, Intramuscular, Vaccine-day 2 tamsulosin 0.4 mg Capsule 0.4 mg 1 cap(s), Oral, qDay Continuous: (0) PRN: (5) acetaminophen 325 mg Tablet 650 mg 2 tab(s), Oral, q6hWA melatonin 3 mg tablet 3 mg 1 tab(s), Oral, qHS melatonin 3 mg tablet 3 mg 1 tab(s), Oral, qHS ondansetron 2 mg/ 1 mL 2 mL INJ 4 mg 2 mL, IV Push, q4h ondansetron 4 mg DIS tablet 4 mg 1 tab(s), Oral, q6h Signature: Mariam Pickens MD Digitally Signed by MARIAM PICKENS MD on 10/03/2022 02:36 PM [facility] 10-02-2022 History and physical note Date of Service 10/02/22 Chief Complaint Shortness of breath History of Present Illness 72-year-old male with PMHx DM 2, CHF (patient does not know what type), BPH, 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 History obtained by patient, ED physician, chart review. The patient states that he has been short of breath for the past few weeks but substantially worse this morning. Progress over the past few days. Denies orthopnea, lower extremity edema. Previously had lower extremity edema but he cannot quantify. He knows relatively few details about his past medical history of current medications. Denies headache, chest pain, Jose pain, nausea or vomiting, changes in bowel or bladder habits. No fevers at home. Cough is productive of green sputum. He is currently 93% on 2 L NC. Tachypneic at rate 22. CT chest showing pleural effusions, interstitial edema consistent with CHF or fluid overload. Patchy groundglass opacities concerning for superimposed infiltrates, possible COVID-19. CBC shows hemoglobin 12.8. No baseline to compare. WBCs and platelets normal. CMP shows glucose 184, creatinine 3.3 last 3.24 on 07/28/2022. Albumin 2.9. eGFR 18 currently. Troponin normal x3. COVID-19 test negative. Lactate 0.8. Influenza negative. BNP elevated 3074. UA shows protein, blood. Not concerning for infection. ED report is not available at the time of this dictation. Review of Systems Pertinent review of systems are included in the HPI. All other systems were reviewed and are negative for acute changes from the patient's baseline. Physical Exam Vitals and Measurements T: 36.6 C (Oral) HR: 81(Apical) RR: 22 BP: 192/86 SpO2: 93% HT: 180.3 cm WT: 121.6 kg BMI: 37.41 Weight Dosing Weight: 121.6 kg (10/02/22) GA: AAOx3, NAD : No CVAT or suprapubic tenderness Abd: Soft nontender nondistended BS+ HEENT: oral mucosa moist. NCAT Pulmonary: Right middle lobe crackles and wheezes. Intermittent basilar crackles. Not tachypneic. MSK: no gross deformities Cardiovascular: RRR, no MRG Skin: warm and dry Neuro: Spontaneous equal movement of all extremities. No gross deficits. Assessment/Plan CHF exacerbation. Patient with pulmonary edema on CT chest. Reported a history of lower extremity edema. He is on bumetanide 10 mg daily. Lasix was administered in the ED, MAR is not available and no ED documentation, unclear how much he received. Most of his shortness of breath is potentially due to pneumonia. -Will monitor for response to initial Lasix with attention to renal function; if stable renal function may administer additional diuresis. -Echo Pneumonia. Patient with progressive shortness of breath. Bilateral groundglass opacities. COVID-19 was negative, influenza also negative. He has cough productive of green sputum and expectorates sputum while I am in the room. He has recently been on azithromycin on an outpatient basis. -We will cover with Rocephin and doxycycline, doxycycline may be discontinued if atypicals are negative -Strep pneumo, mycoplasma, Legionella antigen DM 2. Will discontinue pioglitazone and recommend avoidance of this medication in the future as this may exacerbate heart failure. Continue home glipizide, monitor blood glucose. HTN. We will continue home hydralazine with hold parameters. BPH. Asymptomatic. Continue tamsulosin. CKD 4. eGFR 18. Creatinine is stable since July. He received diuretics in per patient. -Monitor creatinine. Avoid NSAIDs and intravascular depletion as possible. DVT prophylaxis: SCDs Note dictated using voice recognition software and may contain typographical errors. Problem List/Past Medical History Ongoing No qualifying data Historical No qualifying data Procedure/Surgical History Amputation, foot; transmetatarsal: 2012 Medications Home Medications (6) Active Bumex 10 mg, Oral, qDay glipiZIDE 10 mg oral tablet 10 mg = 1 tab(s), Oral, BID hydrALAZINE 50 mg, Oral, TID pioglitazone 30 mg oral tablet 30 mg = 1 tab(s), Oral, Daily tamsulosin 0.4 mg, Oral, qDay Vitamin D3 1,250 mcg, Oral, Daily Allergies aspirin Social History Independent. Family History None significant Immunizations No qualifying data available. Code Status No qualifying data available. Digitally Signed by PUNEET FONSECA MD on 10/02/2022 09:56 PM Digitally Signed by PUNEET FONSECA MD on 10/02/2022 09:58 PM [facility] 10-02-2022 Evaluation + Plan note Extrac indira from: Title:History and Physical Author:NEYDA FONSECA MD Date:10/02/22 CHF exacerbation. Patient wi th pulmonary edema on CT chest. Reported a history of lower extremity edema. He is on bumetanide 10 mg daily. Lasix was administered in the ED, MAR is not available and no ED documentation, unclear how much he received. Most of his shortness of breath is potentially due to pneumonia. -Will monitor for response to initial Lasix with attention to renal function; if stable renal function may administer additional diuresis. -Echo Pneumonia. Patient with progressive shortness of breath. Bilateral groundglass opacities. COVID-19 was negative, influenza also negative. He has cough productive of green sputum and expectorates sputum while I am in the room. He has recently been on azithromycin on an outpatient basis. -We will cover with Rocephin and doxycycline, doxycycline may be discontinued if atypicals are negative -Strep pneumo, mycoplasma, Legionella antigen DM 2. Will discontinue pioglitazone and recommend avoidance of this medication in the future as this may exacerbate heart failure. Continue home glipizide, monitor blood glucose. HTN. We will continue home hydralazine with hold parameters. BPH. Asymptomatic. Continue tamsulosin. CKD 4. eGFR 18. Creatinine is stable since July. He received diuretics in [place] per patient. -Monitor creatinine. Avoid NSAIDs and intravascular depletion as possible. DVT prophylaxis: SCDs Note dictated using voice recognition software and may contain typographical errors. 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 History of Illness Since Last Visit: Patient is doing well. He has some dyspnea on exertion. He continues on the CPAP machine nightly and benefits from use. No recent infections. Will repeat CT scan in 6 months. Will get a CPAP compliance to review. No hemoptysis, chest pain, pleurisy, wasting syndrome or weight loss. IEsmer MA transcribing for Crystal Bauer DO. HISTORY PAST MEDICAL HISTORY Diagnosis Date Diabetes (HCC) History of cardiovascular stress test 10/10/2021 -Impression: Enlarging dilated LV and the setting of global hypokinesis. Calculated EF 39%. This may represent the sequela of chronic hypertension or other cardiomyopathy. No images evidence of stress-induced myocardial ischemia. History of echocardiogram 03/18/2021 Echocardiogram demonstrates a suboptimal study. EF 50 to 55%. Moderate concentric LVH. Class I diastolic dysfunction. Left atrium is mildly dilated. Mild a S. Mild to moderate MR. Mild TR. Borderlineto mild PHT. History of echocardiography 10/07/2021 -Echocardiogram demonstrates of the difficult study with minimal information obtainable. LV is dilated with an EF at 45 to 50%. Diastolic function is indeterminate. Aortic valve is poorly visualized but no evidence for aortic stenosis by Doppler analysis. Moderate mitral annular calcification without hemodynamically significant MS. Mild MR. HTN (hypertension) PAST SURGICAL HISTORY Procedure Laterality Date PAST SURGICAL HISTORY OF Right TMA TONSILLECTOMY HX Social History Tobacco Use Smoking status: Former Packs/day: 1.00 Years: 14.00 Pack years: 14.00 Types: Cigarettes Quit date: 08/20/1979 Years since quittin.8 Smokeless tobacco: Never Vaping Use Vaping Use: Never used Substance Use Topics Alcohol use: Never Drug use: Never ALLERGIES: ALLERGIES Allergen Reactions Amlodipine Swelling Aspirin Other: See Comments tacchycardia Victoza [Liraglutid* Other: See Comments MEDICATIONS: Current Outpatient Medications Medication Sig hydrALAZINE (APRESOLINE) 50 mg tablet Take 1 tablet by mouth three times daily. Take one tablet in the morning, noon, and evening. hydrALAZINE (APRESOLINE) 25 mg tablet Take 50 mg by mouth three times daily. Take at noon carvedilol (COREG) 6.25 mg tablet Take 1 tablet by mouth twice daily. bumetanide (BUMEX) 1 mg tablet Take 1 mg by mouth as needed. allopurinol (ZYLOPRIM) 100 mg tablet Take 100 mg by mouth once daily. glipiZIDE (GLUCOTROL) 5 mg tablet Take 10 mg by mouth twice daily. tamsulosin ER (FLOMAX) 0.4 mg Take 0.4 mg by mouth once daily. pioglitazone (ACTOS) 30 mg tablet Take 30 mg by mouth once daily. amLODIPine (NORVASC) 10 mg tablet Take 10 mg by mouth once daily. (Patient not taking: No sig reported) albuterol HFA (PROVENTIL HFA, VENTOLIN HFA) 90 mcg/actuation inhaler INHALE 1-2 PUFFS INTO LUNGS EVERY FOUR HOURS NEEDED FOR SHORTNESS OF BREATH/WHEEZING (Patient not taking: No sig reported) No current facility-administered medications for this visit. IMMUNIZATIONS: There is no immunization history on file for this patient. FAMILY HISTORY Problem Relation Age of Onset Diabetes Father No Known Problems Sister Arrythmias Brother Diabetes Brother Diabetes Sister Heart disease Sister I have personally reviewed the patients past medical history including social, family, surgical, diagnostics, and medications./WS REVIEW OF SYSTEMS Review of Systems Constitutional: Positive for fatigue. HENT: Negative. Eyes: Negative. Respiratory: Positive for apnea. Cardiovascular: Negative. Gastrointestinal: Negative. Endocrine: Negative. Genitourinary: Negative. Musculoskeletal: Negative. Skin: Positive for rash. Allergic/Immunologic: Negative. Neurological: Negative. Hematological: Negative. Psychiatric/Behavioral: Positive for sleep disturbance. Vital Signs: BP 188/81 Pulse 76 Resp 20 Ht 5' 11 (1.80m) Wt 275 lb (124.7kg) SpO2 96[RA]% BMI 38.37 kg/(m^2). PHYSICAL EXAM: Vitals: BP 188/81 Pulse 76 Resp 20 Ht 5' 11 (1.80m) Wt 275 lb (124.7kg) SpO2 96[RA]% BMI 38.37 kg/(m^2). Const: Appears appropriate for age, well-developed, well-hydrated, well- nourished and pleasant. No signs of acute distress present and no signs of respiratory distress present. Breasts are examined. External genitalia and rectal exams were not performed. Head/Face: Normal on inspection. Symmetric facies. Eyes: Pupils equal round and reactive to light and accommodation. Visual acuity grossly intact. Does wear corrective lenses. ENMT: External ears wnl. Tympanic membranes translucent, with good landmarks bilaterally. Nasal mucosa is pink and moist. Septum is in the midline. Inferior turbinates are normal without hypertrophy.No dental decay. Oropharynx: Appears normal. Tongue appears normal. Mallampati Score: Class IV: Soft palate, base of uvula are wnl. No oral lesions, or candidiasis. Neck: Supple and symmetric. Palpation reveals no lymphadenopathy. Trachea midline. Thyroid is normal size. No JVD. Carotids: 2+upstroke and equal bilaterally, without bruits. Resp: AP diameter is unremarkable. Respiration rate is normal. No use of accessory muscles noted. No wheezing. Percussion is resonant and equal. Voice resonance is clear. Chest is normal to inspection and palpation. No extranneous sounds, wheeze, rhonchi, rub, dullness to percussion, or egophony. No bronchial breath sounds, or pectoriloquy. No laryngeal stridor. Bibasilar crackles and rales-rightworse than left. CV: S1 is normal. S2 is normal. No murmur, clicks, gallops or rub. Capillary refill is normal. No LV or RV heave. No gross pulse deficits. Abdomen: Positive bowel sounds. No bruits. No tenderness over the abdomen on percussion. No pulsatile masses present. No palpable hepatosplenomegaly. No pulsatile mass, bruit, and inguinal adenopathy, or femoral bruits. Lymph: No palpable or visual regional lymphadenopathy. Musculo: Upper Extremities: Normal muscle tone bilaterally. Normal ROM bilaterally. Lower Extremities: Normal muscle tone. Full ROM bilaterally. No digital clubbing, cyanosis , lymphedema, or pittingedema. Boot of the left foot due to ulcer on the heel Skin: Skin warm and dry with no evidence of unusual rashes or suspicious lesions. No obvious decubiti, or active synovitis. Neuro: Alert and oriented 3. Achilles and patellar DTR's are brisk and symmetrical. Coordination normal. Good mobility of all extremities. Cranial nerves grossly intact. Psych: Affect is normal. Thought process appears clear and appropriate. T.OBESE DATA REVIEW CT Scans: 03-22-2022 Areas of interstitial scarring/fibrosis. No honeycombing identified Significant improvement in the atypical pneumonia/inflammatory pattern Improved subcarinal lymphadenopathy Atherosclerosis with severe coronary artery calcifications Oximetry : 96% saturated at rest on room air. [place] Sleepiness Scale: 6 ASSESSMENT/PLAN: 1. Interstitial pulmonary disease (HCC) - ICD9: 515, ICD10: J84.9 (primary diagnosis) 2. History of 2019 novel coronavirus disease (COVID-19) - ICD9: V12.09, ICD10: Z86.16 3. Former smoker - ICD9: V15.82, ICD10: Z87.891 4. Postinflammatory pulmonary fibrosis (HCC) - ICD9: 515, ICD10: J84.10 5. Psoriasis - ICD9: 696.1, ICD10: L40.9 6. Macy on cpap Compliant with pap therapy and benefits from use. Crystal Bauer (Electronically signed expedite mailing) FOLLOW UP: Return in about 6 months (around 12/31/2022). This note was generated with voice recognition software and may contain errors including spelling, grammar, and syntax and mis-recognition of what was dictated that are not fully corrected. I have discussed the recommended treatment, alternative treatments and other treatment options in detail. I have discussed the risks, benefits and side effects of the recommended treatment in detail as well. I have attempted to answer all their questions to their satisfaction, and understanding of the explanation has been voiced. With approval we will pursue the recommended treatment. I, Crystal Bauer, have reviewed and agree with the information in the medical record transcribed by Esmer Brown MA. Crystal Bauer DO documented in this encounterSelect [facility] [place] Miscellaneous Notes* Telephone Encounter - Claire Rose RN - 04/26/2022 11:04 AM EDT Spoke to patient and let her know that his blood pressure has improved since the last office visit Please continue current medications Schedule him for a 4-week follow-up for BP management. Patient agreeable. Already has appt with Dr Alexander 05/23/22 * Telephone Encounter - Nemo Eric MA - 04/25/2022 3:03 PM EDT Attempted to call patient in regards of provider's message. No answer, left message for patient to call office back. * Telephone Encounter - Joceline Lovell APRN.CNP - 04/25/2022 12:47 PM EDT Please call patient let him know that his blood pressure has improved since the last office visit Please continue current medications Schedule him for a 4-week follow-up for BP management Thank you very much documented in this encounterSelect [facility] [place] History of Present illness Narrative* Nemo Eric MA - 04/21/2022 8:48 AM EDT Blood Pressure Check Reason for blood pressure check - Medication adjustment Name and reviewed and verified with patient. Allergies reviewed and verified with patient. Current Outpatient Medications Medication Sig hydrALAZINE (APRESOLINE) 25 mg tablet Take 25 mg by mouth once daily. Take at noon carvedilol (COREG) 6.25 mg tablet Take 1 tablet by mouth twice daily. hydrALAZINE (APRESOLINE) 50 mg tablet Take 1 tablet by mouth twice daily. (Patient taking differently: Take 50 mg by mouth twice daily. Take in the morning and evening) amLODIPine (NORVASC) 10 mg tablet Take 10 mg by mouth once daily. bumetanide (BUMEX) 1 mg tablet Take 1 mg by mouth twice daily. albuterol HFA (PROVENTIL HFA, VENTOLIN HFA) 90 mcg/actuation inhaler INHALE 1-2 PUFFS INTO LUNGS EVERY FOUR HOURS NEEDED FOR SHORTNESS OF BREATH/WHEEZING allopurinol (ZYLOPRIM) 100 mg tablet Take 100 mg by mouth once daily. glipiZIDE (GLUCOTROL) 5 mg tablet Take 10 mg by mouth twice daily. tamsulosin ER (FLOMAX) 0.4 mg Take 0.4 mg by mouth once daily. pioglitazone (ACTOS) 30 mg tablet Take 30 mg by mouth once daily. No current facility-administered medications for this visit. Patient is taking medication as prescribed Yes -Patient is complying to the increase of Hydralazine. Took medication today Yes Experiencing side effects No Blood Pressure at last office visit: 212/99 Blood Pressure today: -First blood pressure that was taken was 180/82. -Second blood pressure that was taken was 150/78 Physician notified of blood pressure readings Yes Recommendations Continue taking medications as prescribed Follow-up: with TEST [employer]UBE [employer]KER Patient verbalizes understanding of instructions Yes Nemo Eric MA documented in this encounterSelect Medical [facility] [place] Miscellaneous Notes* Telephone Encounter - Joceline Lovell APRN.CNP - 04/12/2022 4:24 PM EDT Thank you * Telephone Encounter - Claire Rose RN - 04/06/2022 10:01 AM EDT Spoke to patient and let him know to keep the Oct appointment but want him to come in in 2-3 weeks for a BP check to see if Hydralazine in helping. Patient agreeable. Appointment scheduled * Telephone Encounter - Joceline Lovell APRN.CNP - 04/06/2022 7:15 AM EDT For now keep this appointment. Have him come in in 2 to 3 weeks as a nurse visit to check his blood pressure. This gentleman's blood pressure is frequently all over the place. Lets see if the extra hydralazine is holding him. WhenEsmer reached out to me from pulmonary it was very high. Thank you * Telephone Encounter - Claire Rose RN - 03/30/2022 2:46 PM EDT Spoke to patient and gave the following message: Patient was seen in pulmonary with elevated blood pressures. States he was going to adjust medications. Please make an appointment to follow-up in 4 weeks. Patient stated his pressures are better in the mornings. But a little higher later in the day. Today his SBP was 172. Taking Coreg 6.25 mg BID Norvasc 10 mg daily Hydralazine 50 mg BID Martina Kulkarni NP in [place] started him in January on Hydralazine 25 mg daily at Noon. He is asking if he needs to come in?? Has appointment 05/23/22 * Telephone Encounter - Claire Rose RN - 03/29/2022 10:48 AM EDT Attempted to call patient. No answer. Left message to call back. * Telephone Encounter - Joceline Lovell APRN.CNP - 03/28/2022 4:22 PM EDT Claire, Patient was seen in pulmonary office today by Esmer Be APRN.CNP. Patient's blood pressure is elevated. She is making medication adjustments and we will follow-up. Please make patient a follow-up appointment and in 4-6 weeks. Thank you documented in this encounterSelect [facility] [place] History of Present illness Narrative* Esmer Be APRN.CNP - 03/28/2022 11:12 AM EDT [facility] Department of Pulmonary & Sleep Medicine Esmer Be APRN.CRISELDA Pulmonary Progress Note REFERRING PROVIDER: Moises Prater* Pete Conley is a 72 year old male who is returning for follow up evaluation of ILD and post-inflammatory pulmonary fibrosis and MACY History of Illness Since Last Visit: pt just got his CPAP machine from [facility] a couple days ago, w/ what sounds like a full face mask. He has started using it, and feels this is going ok. He says he had a cold about one month ago, treated w/ antbiotic from PCP, and feeling better. CT results reviewed w/ pt. Improvement in inflammation, areas of scarring/fibrosis still noted. Pt has some BLE edema, drives a lot during the day, using bumex every other day. Pt has albuterol inhaler, but soundslike he is not using any inhalers regularly, and feels his breathing is stable at this point. HISTORY PAST MEDICAL HISTORY Diagnosis Date Diabetes (HCC) History of cardiovascular stress test 10/10/2021 -Impression: Enlarging dilated LV and the setting of global hypokinesis. Calculated EF 39%. This may represent the sequela of chronic hypertension or other cardiomyopathy. No images evidence of stress-induced myocardial ischemia. History of echocardiogram 03/18/2021 Echocardiogram demonstrates a suboptimal study. EF 50 to 55%. Moderate concentric LVH. Class I diastolic dysfunction. Left atrium is mildly dilated. Mild a S. Mild to moderate MR. Mild TR. Borderlineto mild PHT. History of echocardiography 10/07/2021 -Echocardiogram demonstrates of the difficult study with minimal information obtainable. LV is dilated with an EF at 45 to 50%. Diastolic function is indeterminate. Aortic valve is poorly visualized but no evidence for aortic stenosis by Doppler analysis. Moderate mitral annular calcification without hemodynamically significant MS. Mild MR. HTN (hypertension) PAST SURGICAL HISTORY Procedure Laterality Date PAST SURGICAL HISTORY OF Right TMA TONSILLECTOMY HX Social History Tobacco Use Smoking status: Former Packs/day: 1.00 Years: 14.00 Pack years: 14.00 Types: Cigarettes Quit date: 08/20/1979 Years since quittin.6 Smokeless tobacco: Never Vaping Use Vaping Use: Never used Substance Use Topics Alcohol use: Never Drug use: Never ALLERGIES: ALLERGIES Allergen Reactions Amlodipine Swelling Aspirin Other: See Comments tacchycardia Victoza [Liraglutid* Other: See Comments MEDICATIONS: Current Outpatient Medications Medication Sig hydrALAZINE (APRESOLINE) 50 mg tablet Take 1 tablet by mouth twice daily. amLODIPine (NORVASC) 10 mg tablet Take 10 mg by mouth once daily. bumetanide (BUMEX) 1 mg tablet Take 1 mg by mouth twice daily. albuterol HFA (PROVENTIL HFA, VENTOLIN HFA) 90 mcg/actuation inhaler INHALE 1-2 PUFFS INTO LUNGS EVERY FOUR HOURS NEEDED FOR SHORTNESS OF BREATH/WHEEZING allopurinol (ZYLOPRIM) 100 mg tablet Take 100 mg by mouth once daily. glipiZIDE (GLUCOTROL) 5 mg tablet Take 10 mg by mouth twice daily. tamsulosin ER (FLOMAX) 0.4 mg Take 0.4 mg by mouth once daily. pioglitazone (ACTOS) 30 mg tablet Take 30 mg by mouth once daily. No current facility-administered medications for this visit. IMMUNIZATIONS: There is no immunization history on file for this patient. REVIEW OF SYSTEMS Review of Systems Constitutional: Negative for chills, diaphoresis, fatigue, fever and unexpected weight change. HENT: Negative for congestion, dental problem, ear pain, postnasal drip, rhinorrhea, sinus pressure, sinus pain, sore throat and trouble swallowing. Eyes: Negative for photophobia, pain, discharge, itching and visual disturbance. Respiratory: Positive for shortness of breath. Negative for apnea, cough, chest tightness, wheezingand stridor. Cardiovascular: Positive for leg swelling. Negative for chest pain and palpitations. Gastrointestinal: Negative for abdominal distention, abdominal pain, blood in stool, constipation, diarrhea, nausea and vomiting. Endocrine: Negative for polydipsia, polyphagia and polyuria. Genitourinary: Negative for difficulty urinating, dysuria, flank pain and hematuria. Musculoskeletal: Negative for arthralgias, gait problem, joint swelling and myalgias. Skin: Negative for color change, pallor, rash and wound. Allergic/Immunologic: Negative for environmental allergies and food allergies. Neurological: Negative for dizziness, syncope, weakness, light-headedness, numbness and headaches. Hematological: Negative for adenopathy. Does not bruise/bleed easily. Psychiatric/Behavioral: Positive for sleep disturbance. Negative for agitation, behavioral problems, confusion and suicidal ideas. Vital Signs: BP 212/99 Pulse 71 Resp 16 Ht 5' 10.984 (1.80m) Wt 273 lb 9.6 oz (124.1kg) SpO2 94[RA]% BMI 38.18 kg/(m^2). Physical Exam Constitutional: General: He is not in acute distress. Appearance: He is obese. He is not diaphoretic. HENT: Head: Normocephalic and atraumatic. Nose: Nose normal. No nasal deformity, septal deviation, mucosal edema or rhinorrhea. Right Sinus: No maxillary sinus tenderness or frontal sinus tenderness. Left Sinus: No maxillary sinus tenderness or frontal sinus tenderness. Mouth/Throat: Mouth: No oral lesions. Dentition: Abnormal dentition. Pharynx: Uvula midline. No oropharyngeal exudate or posterior oropharyngeal erythema. Comments: Mallampati class IV Eyes: Conjunctiva/sclera: Conjunctivae normal. Pupils: Pupils are equal, round, and reactive to light. Neck: Thyroid: No thyromegaly. Vascular: No JVD. Trachea: No tracheal deviation. Cardiovascular: Rate and Rhythm: Normal rate and regular rhythm. Heart sounds: Normal heart sounds. Pulmonary: Effort: Pulmonary effort is normal. No respiratory distress. Breath sounds: No stridor. Rales (fibrotic) present. No wheezing. Abdominal: General: Bowel sounds are normal. There is no distension. Palpations: Abdomen is soft. Tenderness: no abdominal tenderness There is no guarding. Musculoskeletal: General: Swelling (trace BLE) present. Normal range of motion. Cervical back: Normal range of motion and neck supple. Skin: General: Skin is warm and dry. Findings: No erythema or rash. Neurological: Mental Status: He is alert and oriented to person, place, and time. Gait: Gait is intact. Psychiatric: Mood and Affect: Mood and affect normal. Cognition and Memory: Memory normal. Judgment: Judgment normal. DATA REVIEW CT chest: 03/22/22: IMPRESSION: Areas of interstitial scarring/fibrosis. No honeycombing identified Significant improvement in the atypical pneumonia/inflammatory pattern. Improved subcarinal lymphadenopathy. Atherosclerosis with severe coronary artery calcifications Stress testin10/10/21: Enlarged and dilated left ventricle in the setting of global hypokinesis. Calculated LVEF 39%. This may represent the sequela of chronic hypertensive or other cardiomyopathy. No imaging evidence of reversible stress-induced myocardial ischemia. No prior MPI studies available for comparison. Oximetry : 94% saturated at rest on room air. ASSESSMENT/PLAN: 1. 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 Obesity, Class II, BMI 35-39.9 - ICD9: 278.00, ICD10: E66.9 Stable - Behavioral intervention 3. Interstitial pulmonary disease (HCC) - ICD9: 515, ICD10: J84.9 4. MACY (obstructive sleep apnea) - ICD9: 327.23, ICD10: G47.33 Compliant with and benefits from PAP therapy. Just started cpap. Continue use. 5. Primary hypertension - ICD9: 401.9, ICD10: I10 - suboptimal control - Continue current medication(s) - Recommended regular aerobic exercise. - Recommend home blood pressure monitoring, to bring results in on next visit - Goal of BP <130/80 - high here today. Recheck. SBP was 120s at home last night per pt. F/up closely w/ PCP. 6. Former smoker - ICD9: V15.82, ICD10: Z87.891 Esmer Be (Electronically signed expedite mailing) FOLLOW UP: Return in about 3 months (around 06/28/2022). This note was generated with voice recognition software and may contain errors including spelling, grammar, and syntax and mis-recognition of what was dictated that are not fully corrected. documented in this encounterSelect [facility]-2022 Miscellaneous Notes* Telephone Encounter - Sukhdeep Lozada MA - 12/12/2021 3:25 PM EDT IS THIS A CARDIAC MEDICATION: yes LAST OFFICE VISIT: 11/21/2021 (MUST SAY OFFICE VISIT NOT TELEPHONE ENCOUNTER) HAS IT BEEN A YEAR SINCE PATIENT HAS BEEN SEEN? no IF IT HAS BEEN A YEAR THIS PATIENT NEEDS SCHEDULED. (AFTER PATIENT IS SCHEDULED FOR A FOLLOW UP THEY MAY HAVE A 30 DAY REFILL ONLY AT A LOCAL PHARMACY TO GET THEM TO THEIR APPOINTMENT.) NEXT OFFICE VISIT: 05/23/2022 HOW MANY MONTHS UNTIL NEXT OFFICE VISIT: 6 (THIS IS NUMBER OF REFILLS) Patient calls requesting refill: Pending Prescriptions Disp Refills HYDRALAZINE 50 MG TABLET 90 tablet 6 Sig: Take 1 tablet by mouth twice daily. CARLOS: No Date of last visit:11/21/2021 Phone #: [phone] (home) The patients preferred pharmacy has been captured for this encounter? yes documented in this encounterSelect Medical [facility] [place] History of Present illness Narrative* Joceline Lovell APRN.COMPUTER METEOROLOGIST - 11/21/2021 2:57 PM EDT Referring Provider: Joceline Lovell APRN.C* Date: November 21, 2021 Chief Complaint: Follow Up hypertension HISTORY OF PRESENT ILLNESS: Pete Conley is a 71 year old, established male who presents for hypertension. Patient denies any headaches, dizziness, or syncopal episodes. They also deny any chest pain or chest discomfort. Bilateral lower extremity edema greatly improved ALLERGIES Allergen Reactions Amlodipine Swelling Aspirin Other: See Comments tacchycardia Victoza [Liraglutid* Other: See Comments PAST MEDICAL HISTORY: PAST MEDICAL HISTORY Diagnosis Date Diabetes (HCC) History of cardiovascular stress test 10/10/2021 -Impression: Enlarging dilated LV and the setting of global hypokinesis. Calculated EF 39%. This may represent the sequela of chronic hypertension or other cardiomyopathy. No images evidence of stress-induced myocardial ischemia. History of echocardiogram 03/18/2021 Echocardiogram demonstrates a suboptimal study. EF 50 to 55%. Moderate concentric LVH. Class I diastolic dysfunction. Left atrium is mildly dilated. Mild a S. Mild to moderate MR. Mild TR. Borderlineto mild PHT. History of echocardiography 10/07/2021 -Echocardiogram demonstrates of the difficult study with minimal information obtainable. LV is dilated with an EF at 45 to 50%. Diastolic function is indeterminate. Aortic valve is poorly visualized but no evidence for aortic stenosis by Doppler analysis. Moderate mitral annular calcification without hemodynamically significant MS. Mild MR. HTN (hypertension) PAST SURGICAL HISTORY Procedure Laterality Date PAST SURGICAL HISTORY OF Right TMA TONSILLECTOMY HX FAMILY HISTORY Problem Relation Age of Onset Diabetes Father No Known Problems Sister Arrythmias Brother Diabetes Brother Diabetes Sister Heart disease Sister SOCIAL HISTORY: Tobacco Use: 1 packs/day, for 14 years. Quit 08/20/1979. 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 hydrALAZINE (APRESOLINE) 50 mg tablet Take 50 mg by mouth once daily. albuterol HFA (PROVENTIL HFA, VENTOLIN HFA) 90 mcg/actuation inhaler INHALE 1-2 PUFFS INTO LUNGS EVERY FOUR HOURS NEEDED FOR SHORTNESS OF BREATH/WHEEZING allopurinol (ZYLOPRIM) 100 mg tablet Take 100 mg by mouth once daily. glipiZIDE (GLUCOTROL) 5 mg tablet Take 10 mg by mouth twice daily. tamsulosin ER (FLOMAX) 0.4 mg Take 0.4 mg by mouth once daily. pioglitazone (ACTOS) 30 mg tablet Take 30 mg by mouth once daily. bumetanide (BUMEX) 1 mg tablet Take 1 mg by mouth twice daily. No current facility-administered medications for this visit. I have personally reviewed the patients past medical history including social, family, surgical, diagnostics, and medications./AB REVIEW OF SYSTEMS: Review of Systems Constitutional: Negative for chills and fatigue. Respiratory: Negative for chest tightness and shortness of breath. Cardiovascular: Negative for chest pain, palpitations and leg swelling. Neurological: Negative for dizziness, syncope, weakness and light-headedness. Hematological: Does not bruise/bleed easily. Psychiatric/Behavioral: Negative for confusion and hallucinations. Vitals: BP 168/82 (BP Site: Left Arm, BP Position: Sitting, BP Cuff Size: Large Adult) Pulse 72 Ht 180.3 cm (5' 11) Wt 120.2 kg (265 lb) SpO2 97% BMI 36.96 kg/m PHYSICAL EXAMINATION: BP 168/82 (BP Site: Left Arm, BP Position: Sitting, BP Cuff Size: Large Adult) Pulse 72 Ht 180.3 cm (5' 11) Wt 120.2 kg (265 lb) SpO2 97% BMI 36.96 kg/m Last 3 Encounter BP Readings: Date: BP: 10/17/2021 140/72 09/08/2021 160/92[Manually[ 07/18/2021 160/68 Last 3 Encounter Pulse Readings: Date: Pulse: 10/17/2021 70 09/08/2021 63 07/18/2021 71 Last 3 Encounter Wt Readings: Date: Wt: 10/17/2021 115.2 kg (254 lb) 09/08/2021 122 kg (269 lb) 07/18/2021 121.6 kg (268 lb 1.3 oz) Physical Exam Vitals and nursing note reviewed. Constitutional: General: He is not in acute distress. Appearance: He is obese. HENT: Head: Normocephalic. Eyes: Extraocular Movements: Extraocular movements intact. Cardiovascular: Rate and Rhythm: Normal rate and regular rhythm. Heart sounds: Normal heart sounds. No murmur heard. Pulmonary: Breath sounds: No wheezing or rhonchi. Abdominal: General: Bowel sounds are normal. There is no distension. Palpations: Abdomen is soft. Tenderness: There is no abdominal tenderness. There is no guarding. Musculoskeletal: General: No swelling. Cervical back: Neck supple. Right lower leg: Edema present. Left lower leg: Edema present. Skin: General: Skin is warm. Coloration: Skin is not jaundiced or pale. Findings: No bruising or rash. Neurological: General: No focal deficit present. Mental Status: He is alert and oriented to person, place, and time. Motor: No weakness. Gait: Gait normal. Psychiatric: Mood and Affect: Mood normal. Behavior: Behavior normal. Thought Content: Thought content normal. Judgment: Judgment normal. LABS: Glucose (mg/dL) Date Value 10/12/2021 403 Potassium (mmol/L) Date Value 10/12/2021 5.2 Sodium (mmol/L) Date Value 10/12/2021 133 Chloride (mmol/L) Date Value 10/12/2021 96 CO2 (mmol/L) Date Value 10/12/2021 22 Creatinine (mg/dL) Date Value 10/12/2021 3.07 BUN (mg/dL) Date Value 10/12/2021 81 Anion Gap (mmol/L) Date Value 10/12/2021 20.2 Calcium (mg/dL) Date Value 10/12/2021 9.0 Protein, Total (g/dL) Date Value 10/09/2021 6.4 Albumin (g/dL) Date Value 10/09/2021 3.1 Bilirubin, Total (mg/dL) Date Value 10/09/2021 0.5 Alkaline Phosphatase (U/L) Date Value 10/09/2021 62 AST (U/L) Date Value 10/09/2021 26 ALT (U/L) Date Value 10/09/2021 11 Hemoglobin (g/dL) Date Value 10/12/2021 15.2 Hematocrit (%) Date Value 10/12/2021 46.2 WBC (x10(3)) Date Value 10/12/2021 7.9 Cholesterol, Total (mg/dL) Date Value 10/07/2021 223 HDL Cholesterol (mg/dL) Date Value 10/07/2021 35 LDL (mg/dL) Date Value 10/07/2021 169 Triglyceride (mg/dL) Date Value 10/07/2021 96 EKG: DIAGNOSTIC RESULTS: 1. Essential hypertension - ICD9: 401.9, ICD10: -Today's blood pressure is 168/82 -Goal blood pressure < 140/90 -Patient brought recordings of systolic BPs ranging from 100-130. In talking with patient he has not been taking medication as previously prescribed.. He is currently not taking his Norvasc Nor is hetaking Bumex. -The only medication he has been taking his hydroxyzine 50 mg once or twice a day. Patient reports his blood pressure has been running low. He did not bring medication bottles with him. He reports hedid not have refills for some of them after being discharged from the hospital he therefore thoughtthat was all he needed to take. -Patient did not bring medication bottles with him to review. -In reviewing patient's recorded blood pressures it appears to be stable at this time. He has some mornings where it was elevated. -Recommend patient takes hydroxyzine 50 mg twice daily -Patient follows in December with manager strategy Dr. Cardenas. 2. SOB (shortness of breath) - ICD9: 786.05, ICD10: R06.02 -Patient reports currently his breathing has been very good since being discharged from the hospital. Stable -Patient is followed by pulmonary -Patient scheduled for CT in February follow-up with pulmonary in March 4. Bilateral lower extremity edema - ICD9: 782.3, ICD10: R60.0 Patient presents with trace bilateral lower extremity edema patient reports that it becomes worse as the day goes on. Patient reports edema resolves by the approach to find -Patient has not been taking his Bumex. He reports his legs have not been swelling. Creatinine is elevated. Patient due to follow-up with manager strategy in December. 5. History of cardiovascular stress test - ICD9: V15.89, ICD10: Z92.89 -History of a recent cardiovascular stress test on 10/10/2021. -Impression: Enlarging dilated LV and the setting of global hypokinesis. Calculated EF 39%. This may represent the sequela of chronic hypertension or other cardiomyopathy. No images evidence of stress-induced myocardial ischemia. 6. History of echocardiogram - ICD9: V15.89, ICD10: Z92.89 -History of an echocardiogram from 10/07/2021. -Echocardiogram demonstrates of the difficult study with minimal information obtainable. LV is dilated with an EF at 45 to 50%. Diastolic function is indeterminate. Aortic valve is poorly visualized but no evidence for aortic stenosis by Doppler analysis. Moderate mitral annular calcification without hemodynamically significant MS. Mild MR. 7. Former smoker - ICD9: V15.82, ICD10: Z87.891 -Patient is a former 1 pack a day cigarette smoker. He smoked for 14 years. He quit 1979 Patient was told to bring medication bottles with him for next office visit to visually review medications when updated medication list. Joceline Lovell, SIGNALS COLLECTION TECHNICIAN.COMPUTER METEOROLOGIST Follow up in: 6 months-hypertension/BLE edema Greater than 50% of this > 15 minute visit was spent face to face discussing current diagnosis of hypertension and treatment plan consisting of continue medications as listed above. Follow-up as documented above. I have discussed the recommended treatment, alternative treatments and other treatment options in detail. I have discussed the risks, benefits and side effect of the recommended treatment in detail as well. I have attempted to answer all their questions to their satisfaction and understanding of the explanation has been voiced. With approval we will pursue the recommended treatment. During this office visit I reviewed the patients previous Cardiac testing and procedures results and reviewed the results with the patient. I, Joceline Lovell CNP have reviewed and agree with the information in the medical record transcribed by Sukhdeep Lozada MA. Joceline Lovell [email or web address].[email or web address] This patient note was partially generated from using the [employer] voice recognition system. There maybe some incorrect words, spelling, and punctuation that were not noted in checking the note prior to saving [facility] Future Appointments [facility] note* Diagnosis Essential hypertension- Primary Unspecified essential hypertension SOB (shortness of breath) Shortness of breath Bilateral lower extremity edema Edema History of cardiovascular stress test Other specified personal history presenting hazards to health History of echocardiogram Other specified personal history presenting hazards to health Former smoker Personal history of tobacco use, presenting hazards to health [facility] Diagnosis Postinflammatory pulmonary fibrosis (HCC)- Primary Postinflammatory pulmonary fibrosis Obesity, Class II, BMI 35-39.9 Obesity, unspecified Interstitial pulmonary disease (HCC) Postinflammatory pulmonary fibrosis MACY (obstructive sleep apnea) Obstructive sleep apnea (adult) (pediatric) Primary hypertension Unspecified essential hypertension Former smoker Personal history of tobacco use, presenting hazards to health [facility] Diagnosis Essential hypertension- Primary Unspecified essential hypertension [facility] Diagnosis Interstitial pulmonary disease (HCC)- Primary Postinflammatory pulmonary fibrosis History of 2019 novel coronavirus disease (COVID-19) Former smoker Personal history of tobacco use, presenting hazards to health Postinflammatory pulmonary fibrosis (HCC) Postinflammatory pulmonary fibrosis Psoriasis Other psoriasis MACY on CPAP Obstructive sleep apnea (adult) (pediatric) [facility]* Diagnosis Hospital discharge follow-up- Primary Other follow-up examination Chronic HFrEF (heart failure with reduced ejection fraction) (HCC) Benign hypertension Essential hypertension, benign SOB (shortness of breath) Shortness of breath Oxygen dependent Dependence on supplemental oxygen Generalized edema Edema History of echocardiogram Other specified personal history presenting hazards to health Former smoker Personal history of tobacco use, presenting hazards to health [facility] Diagnosis Primary hypertension- Primary Unspecified essential hypertension [facility] Diagnosis Primary hypertension- Primary Unspecified essential hypertension Chronic HFrEF (heart failure with reduced ejection fraction) (HCC) History of echocardiogram Other specified personal history presenting hazards to health Former smoker Personal history of tobacco use, presenting hazards to health [facility] Diagnosis Chronic hypoxemic respiratory failure (HCC)- Primary Chronic respiratory failure Postinflammatory pulmonary fibrosis (HCC) Postinflammatory pulmonary fibrosis MACY on CPAP Obstructive sleep apnea (adult) (pediatric) Psoriasis Other psoriasis SOB (shortness of breath) Shortness of breath Obesity, Class II, BMI 35-39.9 Obesity, unspecified Former smoker Personal history of tobacco use, presenting hazards to health DCM (dilated cardiomyopathy) (HCC) Other primary cardiomyopathies History of 2019 novel coronavirus disease (COVID-19) Chronic obstructive pulmonary disease, unspecified COPD type (HCC) Solitary pulmonary nodule [facility]* Diagnosis Essential hypertension- Primary Unspecified essential hypertension MACY (obstructive sleep apnea) Obstructive sleep apnea (adult) (pediatric) History of echocardiogram Other specified personal history presenting hazards to health History of cardiovascular stress test Other specified personal history presenting hazards to health History of diabetes mellitus Personal history of other endocrine, metabolic, and immunity disorders Former smoker Personal history of tobacco use, presenting hazards to health Chronic HFrEF (heart failure with reduced ejection fraction) (HCC) documented [facility] this [facility]* Diagnosis Chronic obstructive pulmonary disease, unspecified COPD type (HCC)- Primary Pulmonary nodules Other nonspecific abnormal finding of lung field Postinflammatory pulmonary fibrosis (HCC) Postinflammatory pulmonary fibrosis MACY on CPAP Obstructive sleep apnea (adult) (pediatric) DCM (dilated cardiomyopathy) (HCC) Other primary cardiomyopathies Former smoker Personal history of tobacco use, presenting hazards to health Pleural effusion Unspecified pleural effusion [facility] Diagnosis Pleural effusion- Primary Unspecified pleural effusion Pulmonary nodules Other nonspecific abnormal finding of lung field Postinflammatory pulmonary fibrosis (HCC) Postinflammatory pulmonary fibrosis MACY on CPAP Obstructive sleep apnea (adult) (pediatric) DCM (dilated cardiomyopathy) (HCC) Other primary cardiomyopathies Former smoker Personal history of tobacco use, presenting hazards to health documented [facility] this [facility]* Diagnosis Pleural effusion Unspecified pleural effusion documented [facility]* Diagnosis Syncope and collapse- Primary Dyspnea on exertion Other dyspnea and respiratory abnormality Decreased cardiac ejection fraction Other nonspecific abnormal cardiovascular system function study Nonrheumatic mitral valve regurgitation Primary hypertension Unspecified essential hypertension Mixed hyperlipidemia Class 2 severe obesity due to excess calories with serious comorbidity and body mass index (BMI) of 37.0 to 37.9 in adult (HCC) Former smoker Personal history of tobacco use, presenting hazards to health Abnormal electrocardiogram Nonspecific abnormal electrocardiogram (ECG) (EKG) History of echocardiogram Other specified personal history presenting hazards to health [facility]* Diagnosis Nonrheumatic mitral valve regurgitation- Primary [facility] this [facility]* Diagnosis Nonrheumatic mitral valve regurgitation- Primary Cardiomyopathy, nonischemic (HCC) Other primary cardiomyopathies Coronary artery disease involving [place] coronary artery of [place] heart without angina pectoris Acute on chronic combined systolic and diastolic congestive heart failure (HCC) Acute on chronic combined systolic and diastolic heart failure Secondary pulmonary arterial hypertension (HCC) Interstitial lung disease (HCC) Postinflammatory pulmonary fibrosis Valvular heart disease Endocarditis, valve unspecified, unspecified cause Dyspnea on exertion Other dyspnea and respiratory abnormality Valvular heart disease Endocarditis, valve unspecified, unspecified cause Dyspnea on exertion Other dyspnea and respiratory abnormality [facility] this [facility]* Diagnosis Nonrheumatic mitral valve regurgitation Valvular heart disease Endocarditis, valve unspecified, unspecified cause Dyspnea on exertion Other dyspnea and respiratory abnormality Valvular heart disease Endocarditis, valve unspecified, unspecified cause Dyspnea on exertion Other dyspnea and respiratory abnormality [facility] this [facility]* Diagnosis Nonrheumatic mitral valve regurgitation Valvular heart disease Endocarditis, valve unspecified, unspecified cause Dyspnea on exertion Other dyspnea and respiratory abnormality Valvular heart disease Endocarditis, valve unspecified, unspecified cause Dyspnea on exertion Other dyspnea and respiratory abnormality [facility] this [facility]* Diagnosis MACY on CPAP- Primary Obstructive sleep apnea (adult) (pediatric) Postinflammatory pulmonary fibrosis (HCC) Postinflammatory pulmonary fibrosis DCM (dilated cardiomyopathy) (HCC) Other primary cardiomyopathies SOB (shortness of breath) on exertion Shortness of breath Obesity, Class II, BMI 35-39.9 Obesity, unspecified Nonrheumatic mitral valve regurgitation Chronic HFrEF (heart failure with reduced ejection fraction) ([facility]) Pleural effusion Unspecified pleural effusion Valvular heart disease Endocarditis, valve unspecified, unspecified cause Dyspnea on exertion Other dyspnea and respiratory abnormality Valvular heart disease Endocarditis, valve unspecified, unspecified cause Dyspnea on exertion Other dyspnea and respiratory abnormality documented in this encounter [facility] note* Diagnosis Bilateral carotid artery stenosis- Primary Occlusion and stenosis of carotid artery without mention of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 Federal rules restrict any use of the information to criminally investigate or prosecute any alcohol or drug abuse patient.[facility] DublinIn the event this information is protected by the Federal Confidentiality of Alcohol and Drug Abuse Patient Records regulations: The Federal rules restrict any use of the information to criminally investigate or prosecute any alcohol or drug abuse patient.[facility] DublinIn the event this information is protected by the Federal Confidentiality of Alcohol and Drug Abuse Patient Records regulations: The Federal rules restrict any use of the information to criminally investigate or prosecute any alcohol or drug abuse patient.[facility] DublinIn the event this information is protected by the Federal Confidentiality of Alcohol and Drug Abuse Patient Records regulations: The Federal rules restrict any use of the information to criminally investigate or prosecute any alcohol or drug abuse patient.[facility] DublinIn the event this information is protected by the Federal Confidentiality of Alcohol and Drug Abuse Patient Records regulations: The Federal rules restrict any use of the information to criminally investigate or prosecute any alcohol or drug abuse patient.[facility] DublinIn the event this information is protected by the Federal Confidentiality of Alcohol and Drug Abuse Patient Records regulations: The Federal rules restrict any use of the information to criminally investigate or prosecute any alcohol or drug abuse patient.[facility] DublinIn the event this information is protected by the Federal Confidentiality of Alcohol and Drug Abuse Patient Records regulations: The Federal rules restrict any use of the information to criminally investigate or prosecute any alcohol or drug abuse patient.[facility] DublinIn the event this information is protected by the Federal Confidentiality of Alcohol and Drug Abuse Patient Records regulations: The Federal rules restrict any use of the information to criminally investigate or prosecute any alcohol or drug abuse patient.[facility] DublinIn the event this information is protected by the Federal Confidentiality of Alcohol and Drug Abuse Patient Records regulations: The Federal rules restrict any use of the information to criminally investigate or prosecute any alcohol or drug abuse patient.[facility] the event this information is protected by the Federal Confidentiality of Alcohol and Drug Abuse Patient Records regulations: The Federal rules restrict any use of the information to criminally investigate or prosecute any alcohol or drug abuse patient.[facility] Dublin[facility] the event this information is protected by the Federal Confidentiality of Alcohol and Drug Abuse Patient Records regulations: The Federal rules restrict any use of the information to criminally investigate or prosecute any alcohol or drug abuse patient.[facility] DublinIn the event this information is protected by the Federal Confidentiality of Alcohol and Drug Abuse Patient Records regulations: The Federal rules restrict any use of the information to criminally investigate or prosecute any alcohol or drug abuse patient.[facility] Care Teams (unrecognized sec tion and content) Branch Specialist Relationship Specialty Start Date End Date Moises Prater [address] [place] [address] PCP - General Family Practice 07/06/20 Branch Specialist Relationship Specialty Start Date End Date Moises Prater [address] [place] [address] PCP - General Family Practice 07/06/20 Branch Specialist Relationship Specialty Start Date End Date Moises Prater [address] [place] [address] PCP - General Family Practice 07/06/20 Branch Specialist Relationship Specialty Start Date End Date Moises Prater [address] [facility] [place] [address] PCP - General Family Practice 07/06/20 Branch Specialist Relationship Specialty Start Date End Date Moises Prater [address] [facility] [place] [address] PCP - General Family Practice 07/06/20 Branch Specialist Relationship Specialty Start Date End Date Moisse Prater [address] [place] [address] PCP - General Family Practice 07/06/20 Branch Specialist Relationship Specialty Start Date End Date Moises Prater [address] [place] [address] PCP - General Family Medicine 07/06/20 Branch Specialist Relationship Specialty Start Date End Date Moises Prater [address] [place] [address] PCP - General Family Medicine 07/06/20 Branch Specialist Relationship Specialty Start Date End Date Moises Prater [address] [place] [address] PCP - General Family Medicine 07/06/20 Branch Specialist Relationship Specialty Start Date End Date Moises Prater [address] [place] [address] PCP - General Family Medicine 07/06/20 Branch Specialist Relationship Specialty Start Date End Date Moises Prater [address] [facility] [place] [address] PCP - General Family Medicine 07/06/20 Branch Specialist Relationship Specialty Start Date End Date Moises Prater [address] [facility] [place] [address] PCP - General Family Medicine 07/06/20 Branch Specialist Relationship Specialty Start Date End Date Moises Prater [address] [facility] [place] [address] PCP - General Family Medicine 07/06/20 Branch Specialist Relationship Specialty Start Date End Date Moises Prater [address] [facility] [place] [address] PCP - General Family Medicine 07/06/20 Branch Specialist Relationship Specialty Start Date End Date Moises Prater [address] [facility] [place] [address] PCP - General Family Medicine 07/06/20 Branch Specialist Relationship Specialty Start Date End Date Moises Prater [address] [facility] [place] [address] PCP - General Family Medicine 07/06/20 Branch Specialist Relationship Specialty Start Date End Date Moises Prater [address] [facility] [place] [address] PCP - General Family Medicine 07/06/20 Branch Specialist Relationship Specialty Start Date End Date Moises Prater [address] [facility] [place] [address] PCP - General Family Medicine 07/06/20 Branch Specialist Relationship Specialty Start Date End Date Moises Prater [address] [facility] [place] [address] PCP - General Family Medicine 07/06/20 Branch Specialist Relationship Specialty Start Date End Date Moises Prater MD [address] [facility] [place] [address] PCP - General Family Medicine 07/06/20 Branch Specialist Relationship Specialty Start Date End Date Moises Prater MD [address] [facility] [place] [address] PCP - General Family Medicine 07/06/20 Branch Specialist Relationship Specialty Start Date End Date Moises Prater MD [address] [facility] [place] [address] PCP - General Family Medicine 07/06/20 Branch Specialist Relationship Specialty Start Date End Date Moises Prater MD [address] [facility] [place] [address] PCP - General Family Medicine 07/06/20 Branch Specialist Relationship Specialty Start Date End Date Moises Prater MD [address] [facility] [place] [address] PCP - General Family Medicine 07/06/20 Branch Specialist Relationship Specialty Start Date End Date Moises Prater MD [address] [facility] [place] [address] PCP - General Family Medicine 07/06/20 Branch Specialist Relationship Specialty Start Date End Date Moises Prater MD [address] [facility] [place] [address] PCP - General Family Medicine 07/06/20 Branch Specialist Relationship Specialty Start Date End Date Moises Prater MD [address] [place] [address] PCP - General Family Medicine 07/06/20 Branch Specialist Relationship Specialty Start Date End Date Moises Prater MD [address] [place] [address] PCP - General Family Medicine 07/06/20 Tristan Alexander DO [address] [place] [address] Cardiology 10/16/23 Branch Specialist Relationship Specialty Start Date End Date Moises Prater MD [address] [place] [address] PCP - General Family Medicine 07/06/20 Tristan Alexander DO [address] [place] [address] Cardiology 10/16/23 Branch Specialist Relationship Specialty Start Date End Date Moises Prater MD [address] [place] [address] PCP - General Family Medicine 07/06/20 Tristan Alexander DO [address] [place] [address] Cardiology 10/16/23 Branch Specialist Relationship Specialty Start Date End Date Moises Prater MD [address] [place] [address] PCP - General Family Medicine 07/06/20 Tristan Alexander DO [address] [place] [address] Cardiology 10/16/23 Branch Specialist Relationship Specialty Start Date End Date Moises Prater MD [address] [place] [address] PCP - General Family Medicine 07/06/20 Tristan Alexander DO [address] [address] Cardiology 10/16/23 Branch Specialist Relationship Specialty Start Date End Date Moises Prater MD [address] [place] [address] PCP - General Family Medicine 07/06/20 Tristan Alexander DO [address] [place] [address] Cardiology 10/16/23 Branch Specialist Relationship Specialty Start Date End Date Moises Prater MD [address] [place] [address] PCP - General Family Medicine 07/06/20 Tristan Alexander DO [address] [place] [address] [phone] Cardiology 10/16/23 Branch Specialist Relationship Specialty Start Date End Date Moises Prater MD [address] [place] [address] PCP - General Family Medicine 07/06/20 Tristan Alexander DO [address] [phone] Cardiology 10/16/23 Branch Specialist Relationship Specialty Start Date End Date Moises Prater MD [address] [place] [address] PCP - General Family Medicine 07/06/20 Tristan Alexander DO [address] [place] [address] Cardiology 10/16/23 Branch Specialist Relationship Specialty Start Date End Date Moises Prater MD [address] [place] [address] PCP - General Family Medicine 07/06/20 Tristan Alexander DO [address] [place] [address] Cardiology 10/16/23 Branch Specialist Relationship Specialty Start Date End Date Moises Prater MD [address] [place] [address] PCP - General Family Medicine 07/06/20 Tristan Alexander DO [address] [place] [address] [phone] Cardiology 10/16/23 Branch Specialist Relationship Specialty Start Date End Date Moises Prater MD [address] [place] [address] PCP - General Family Medicine 07/06/20 Tristan Alexander DO [address] [phone] Cardiology 10/16/23 Branch Specialist Relationship Specialty Start Date End Date Moises Prater MD [address] [place] [address] PCP - General Family Medicine 07/06/20 Tristan Alexander DO [address] [place] [address] 315322 Cardiology 10/16/23 Branch Specialist Relationship Specialty Start Date End Date Moises Prater MD [address] [place] [address] PCP - General Family Medicine 07/06/20 Tristan Alexander DO [address] [place] [address] 956112 Cardiology 10/16/23 Branch Specialist Relationship Specialty Start Date End Date Moises Prater MD [address] [place] [address] PCP - General Family Medicine 07/06/20 Tristan Alexander DO [address] [place] [address] Cardiology 10/16/23 Branch Specialist Relationship Specialty Start Date End Date Moises Prater MD [address] [place] [address] PCP - General Family Medicine 07/06/20 Tristan Alexander DO [address] [place] [address] Cardiology 10/16/23 Branch Specialist Relationship Specialty Start Date End Date Moises Prater MD [address] [place] [address] PCP - General Family Medicine 07/06/20 Tristan Alexander DO [address] [place] [address] Cardiology 10/16/23 Branch Specialist Relationship Specialty Start Date End Date Moises Prater MD [address] [place] [address] PCP - General Family Medicine 07/06/20 Tristan Alexander DO [address] [place] [address] Cardiology 10/16/23 Branch Specialist Relationship Specialty Start Date End Date Moises Prater MD [address] [place] [address] PCP - General Family Medicine 07/06/20 Tristan Alexander DO [address] [place] [address] Cardiology 10/16/23 Branch Specialist Relationship Specialty Start Date End Date Moises Prater MD [address] [place] [address] PCP - General Family Medicine 07/06/20 Tristan Alexander DO [address] [place] [address] Cardiology 10/16/23 Branch Specialist Relationship Specialty Start Date End Date Moises Prater MD [address] [place] [address] PCP - General Family Medicine 07/06/20 Tristan Alexander DO [address] [place] [address] Cardiology 10/16/23 Mimi Watt MD [address] [facility] [place] [address] Surgeon Cardiac Surg 11/25/24 Branch Specialist Relationship Specialty Start Date End Date Moises Prater MD [address] [place] [address] PCP - General Family Medicine 07/06/20 Tristan Alexander DO [address] [place] [address] Cardiology 10/16/23 Mimi Watt MD [address] [place] [address] Surgeon Cardiac Surg 11/25/24 Branch Specialist Relationship Specialty Start Date End Date Moises Prater MD [address] [place] [address] PCP - General Family Medicine 07/06/20 Tristan Alexander DO [address] [place] [address] Cardiology 10/16/23 Mimi Watt MD [address] [facility] [place] [address] Surgeon Cardiac Surg 11/25/24 Branch Specialist Relationship Specialty Start Date End Date Moises Prater MD [address] [place] [address] PCP - General Family Medicine 07/06/20 Tristan Alexander DO [address] [place] [address] Cardiology 10/16/23 Mimi Watt MD [address] [place] [address] Surgeon Cardiac Surg 11/25/24 Branch Specialist Relationship Specialty Start Date End Date Moises Prater MD [address] [place] [address] PCP - General Family Medicine 07/06/20 Tristan Alexander DO [address] [place] [address] Cardiology 10/16/23 Mimi Watt MD [address] [place] [address] Surgeon Cardiac Surg 11/25/24 Branch Specialist Relationship Specialty Start Date End Date Moises Prater MD [address] [place] [address] PCP - General Family Medicine 07/06/20 Tristan Alexander DO [address] [place] [address] Cardiology 10/16/23 Mimi Watt MD [address] [facility] [place] [address] Surgeon Cardiac Surg 11/25/24 A, Hvi Clinical Clinical Psychology Professor/Pa [address] [place] [address] Primary Service Cardiology 12/15/24 Branch Specialist Relationship Specialty Start Date End Date Moises Prater MD [address] [place] [address] PCP - General Family Medicine 07/06/20 Tristan Alexander DO [address] [place] [address] Cardiology 10/16/23 Mimi Watt MD [address] [place] [address] Surgeon Cardiac Surg 11/25/24 A, Hvi Clinical Clinical Psychology Professor/Pa [address] [place] [address] Primary Service Cardiology 12/15/24 Branch Specialist Relationship Specialty Start Date End Date Moises Prater MD [address] [place] [address] PCP - General Family Medicine 07/06/20 Tristan Alexander DO [address] [place] [address] Cardiology 10/16/23 Mimi Watt MD [address] [place] [address] Surgeon Cardiac Surg 11/25/24 A, Hvi Clinical Clinical Psychology Professor/Pa [address] [place] [address] Primary Service Cardiology 12/15/24 Branch Specialist Relationship Specialty Start Date End Date Moises Prater MD [address] [place] [address] PCP - General Family Medicine 07/06/20 Tristan Alexander DO [address] [place] [address] Cardiology 10/16/23 Mimi Watt MD [address] [place] [address] Surgeon Cardiac Surg 11/25/24 A, i Clinical Clinical Psychology Professor/Pa [address] [place] [address] Primary Service Cardiology 12/15/24 Branch Specialist Relationship Specialty Start Date End Date Moises Prater MD [address] [place] [address] PCP - General Family Medicine 07/06/20 Tristan Alexander DO [address] [place], [place] 849211 Cardiology 10/16/23 Mimi Watt MD [address] [place] [address] Surgeon Cardiac Surg 11/25/24 A, Hvi Clinical Clinical Psychology Professor/Pa [address] [place] [address] Primary Service Cardiology 12/15/24 12/15/24 A, Hvi Clinical Clinical Psychology Professor/Pa [address] [place] [address] Primary Service Cardiology 12/15/24 Branch Specialist Relationship Specialty Start Date End Date Moises Prater MD [address] [place] [address] PCP - General Family Medicine 07/06/20 Tristan Alexander DO [address] [place] [address] Cardiology 10/16/23 Mimi Watt MD [address] [place] [address] Surgeon Cardiac Surg 11/25/24 A, i Clinical Clinical Psychology Professor/Pa [address] [place] [address] Primary Service Cardiology 12/15/24 Branch Specialist Relationship Specialty Start Date End Date Moises Prater MD [address] [place] [address] PCP - General Family Medicine 07/06/20 Tristan Alexander DO [address] [place] [address] Cardiology 10/16/23 Mimi Watt MD [address] [place] [address] Surgeon Cardiac Surg 11/25/24 A, Hvi Clinical Clinical Psychology Professor/Pa [address] [place] [address] Primary Service Cardiology 12/15/24 Branch Specialist Relationship Specialty Start Date End Date Moises Prater MD [address] [place] [address] PCP - General Family Medicine 07/06/20 Tristan Alexander DO [address] [place] [address] Cardiology 10/16/23 Mimi Watt MD [address] [place] [address] Surgeon Cardiac Surg 11/25/24 A, Hvi Clinical Clinical Psychology Professor/Pa [address] [facility] [place] [place] [address] Primary Service Cardiology 12/15/24 Branch Specialist Relationship Specialty Start Date End Date Moises Prater MD [address] [place] [address] PCP - General Family Medicine 07/06/20 Tristan Alexander DO [address] [place] [address] Cardiology 10/16/23 Mimi Watt MD [address] [place] [address] Surgeon Cardiac Surg 11/25/24 A, Hvi Clinical Clinical Psychology Professor/Pa [address] [place] [address] Primary Service Cardiology 12/15/24 Branch Specialist Relationship Specialty Start Date End Date Moises Prater MD [address] [place] [address] PCP - General Family Medicine 07/06/20 Tristan Alexander DO [address] [place] [address] Cardiology 10/16/23 Mimi Watt MD [address] [place] [address] Surgeon Cardiac Surg 11/25/24 A, Hvi Clinical Clinical Psychology Professor/Pa [address] [place] [address] Primary Service Cardiology 12/15/24 Branch Specialist Relationship Specialty Start Date End Date Moises Prater MD [address] [place] [address] PCP - General Family Medicine 07/06/20 Tristan Alexander DO [address] [place] [address] Cardiology 10/16/23 Mimi Watt MD [address] [place] [address] Surgeon Cardiac Surg 11/25/24 A, Hvi Clinical Clinical Psychology Professor/Pa [address] [place] [address] Primary Service Cardiology 12/15/24 Branch Specialist Relationship Specialty Start Date End Date Moises Prater MD [address] [place] [address] PCP - General Family Medicine 07/06/20 Tristan Alexander DO [address] [place] [address] Cardiology 10/16/23 Mimi Watt MD [address] [place] [address] Surgeon Cardiac Surg 11/25/24 A, Hvi Clinical Clinical Psychology Professor/Pa [address] [place] [address] Primary Service Cardiology 12/15/24 Care Team (unrecognized sect ion and content) Care Team Personnel Name: MOIESS PRATER MD Member Role: Primary Care Physician Address: Address: [place] [address]- FOR RECORDS PERTAINING TO PATIENTS WHO ARE OR HAVE BEEN ENROLLED IN A CHEMICAL DEPENDENCY/SUBSTANCEABUSE PROGRAM, SOME INFORMATION MAY BE OMITTED. This clinical summary was aggregated from multiple sources. Caution should be exercised in using it in the provision of clinical care. This summary normalizes information from multiple sources, and as a consequence, information in this document may materially change the coding, format and clinical context of patient data. In addition, data may be omitted in some cases. CLINICAL DECISIONS SHOULD BE BASED ON THE PRIMARY CLINICAL RECORDS. [facility] [employer] [facility]. provides no warranty or guarantee of the accuracy or completeness of information in this document.
[2025-07-13] MEDS: 0.9% Normal Saline (1000mL) 1,000 ML 15 ML IV (06:49)
--- NOTE | 2025-07-13 06:56 | PRE.ANES_ITS ---
ASA Classification* ASA Classification ASA Classification: 4 (CABG x3, HTN, MACY, PACEMAKER for complete heart block - Vpaced, COPD on O2 continuous, CHF, dialysis nightly. GFR 19 - NO versed ) Assessment & Plan Anesthesia* Anesthesia Assessment Anesthesia Assessment: Discussed sedation and/or anesthesia options, risks, benefits, and alternatives with patient/parents/legal guardian/POA. Questions invited. The patient/parents/legal guardian/POA seems to understand and agrees to proceed with anesthesia plan. Reviewed the physical assessment, medical history, allergy history and patient home medications list prior to surgery/procedure/anesthetic and documented any changes. Performed airway and anesthesia risk assessments. I discussed the patient's cardiac risk factors with the patient, and advised the patient that complications under anesthesia given his comorbidities include OH, stroke, and the possibility of . The patient's breathing is somewhat labored today (will give duoneb preop). The patient understands the risks of anesthesia today and has verbalized understanding and would like to proceed with surgery today. Opportunity for questions illicited. Blood thinners NOT held. Surgeon is in understanding that blood thinners were not held and would like to continue. Anesthesia Type Anesthesia Type: MAC and Block (Interscalene or supraclavicular nerve block. Benefits/risks/alternatives explained. Opportunity for questions invited. Will perform in OR) History Source History Obtained from:: Patient and Chart Anesthesia Focused Assessment* Temperature: 98.2 F Pulse Rate: 92 Blood Pressure: 110/64 Respiratory Rate: 16 Pulse Ox: 95 Oxygen Delivery Method: Room Air Oxygen Flow Rate (L/min): 2 Airway Assessment Mouth opens: >3 cm Mallampati Score: III Neck Range of motion (ROM): Full ROM Labs Anesthesia Preop lab: CBC WBC, (4.4-11.0) 8.7 K/mm3 11/10/24, 09:36 RBC, (4.6-6.2) 4.91 M/mm3 11/10/24, 09:36 Hgb, (13.0-16.5) 15.6 g/dL 11/10/24, 09:36 Hct, (40-54) 48.0 % 11/10/24, 09:36 Plt Count, (150-450) 129 K/mm3 L 11/10/24, 09:36 CHEMISTRY Potassium, (3.3-5.1) 4.3 mmol/L 11/10/24, 09:36 Sodium, (133-145) 138 mmol/L 11/10/24, 09:36 Magnesium, (1.5-2.2) 2.0 mg/dL 11/10/24, 09:36 BUN, (4-19) 62 mg/dL H 11/10/24, 09:36 Creatinine, (0.70-1.20) 3.26 mg/dL H 11/10/24, 09:36 Glucose, (70-99) 126 mg/dL H 11/10/24, 09:36 COAG Pre-Assessment Diagnosis/Proposed Procedure Planned Operative Procedure(s): RIGHT ARM AV CREATION Anesthesia History 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 When Was Last Pacemaker Check QUESTION #4 FULL TEXT: You/Your Family Experience fever (hyperthermia) with Anesthesia Last Oral Intake Last Oral intake: Last Oral Intake NPO since 05:00 07/13/25 06:32 Meds taken in AM with sips of Yes 07/13/25 06:32 water? Meds patient instructed to SEE MAR 07/13/25 06:32 take am of surgery PONV PONV - paper machine operator: PONV - paper machine operator Female No 06/30/25 14:33 HX of Motion Sickness No 06/30/25 14:33 HX of N/V After Surgery No 06/30/25 14:33 Non-Smoker Yes 06/30/25 14:33 Duration of Surgery greater Yes 06/30/25 14:33 than 60 minutes Number of Risk Factors 2 06/30/25 14:33 PONV Score Moderate Risk 06/30/25 14:33 Height & Weight Height & Weight: Anesthesia: Height & Weight Height 5 ft 11 in 07/13/25 06:32 Weight: 112.491 kg 07/13/25 06:32 Body Mass Index (BMI) 34.5 07/13/25 06:32 Respiratory Assessment Respiratory Assessment - paper machine operator: Respiratory Tract Infection Hx - paper machine operator Hx Respiratory Tract Infection No 06/30/25 14:33 STOP Sleep Apnea STOP Sleep Apnea - paper machine operator: STOP Sleep Apnea - paper machine operator Hx Hypertension Yes: MANY YRS AGO 06/30/25 14:33 Hx Sleep Apnea Yes 06/30/25 14:33 CPAP Yes 06/30/25 14:33 BIPAP No 06/30/25 14:33 Do you snore loudly (louder than talking or can be heard Do you often feel tired/ fatigued/ sleepy during daytime? Has anyone observed you stop breathing during sleep? STOP Results Positive 06/30/25 14:33 QUESTION #5 FULL TEXT : Do you snore loudly (louder than talking or can be heard through closed doors)? Tobacco Use History Tobacco Use History - paper machine operator: Tobacco Use History - paper machine operator Tobacco Use Smoking Status Former smoker 06/30/25 14:33 Hx Tobacco Use No 06/30/25 14:33 Years Smoking Packs Smoked per Day Smoking Cessation Date was No - quit smoking greater 06/30/25 14:33 within the last 15 years than 15 years ago Hx Smoking Cessation Date 08/20/79 06/30/25 14:33 Hx Smoking Cessation No 06/30/25 14:33 Counseling Hematologic Medial History Hematologic Hx - paper machine operator: Hematologic Medical Hx - manager quality compliance Hx of Blood Transfusion No 06/30/25 14:33 Hx of Transfusion in last 3 No 06/30/25 14:33 Months Date of Last Transfusion (if within last 3 months) Ever experience any problems No 06/30/25 14:33 with transfusion(s)? Specify any problems Hx of Preganancy in last 3 N/A 06/30/25 14:33 Months Nurse Filling Out Transfusion DSCHRIBER 06/30/25 14:33 & Questions: Date: 06/30/25 06/30/25 14:33 Time: 14:35 06/30/25 14:33 Patient unable to answer at this time (ie. confused, unrespo /Reproduction History /Reproductive History - paper machine operator: /Reproductive Hx- paper machine operator Hx Now No 06/30/25 14:33 Gestational Age (in weeks): EDC: Hx Hx Para Hx Section SAB No 06/30/25 14:33 Does the father of the baby or his family experience fever w Father of the baby Malignant Hypertension history comment Active Medications Active Medications: Current Medications Generic Name Dose Route Start Last Admin Trade Name Freq PRN Reason Stop Dose Admin Cefazolin Sodium 3 gm/ Sodium 115 mls @ 200 mls/hr 07/13/25 07:00 Chloride IV 07/13/25 07:34 INTRAOP ONE Sodium Chloride 1,000 mls @ 15 mls/hr 07/13/25 06:05 07/13/25 06:49 IV 15 mls/hr .Q48H SHAISTA Administration PFSH Medical History (Updated 06/30/25 @ 14:46 by Kirstin Aguiar) Insulin dependent diabetes mellitus Low iron Restless legs Injury of back Dietary restriction Gastric reflux On home oxygen therapy Shortness of breath on exertion History of pain when walking History of pacemaker Wears hearing aid Wears glasses Walker as ambulation aid History of renal dialysis History of renal disease High cholesterol Syncope Former smoker CPAP (continuous positive airway pressure) dependence Leg cramps History of echocardiogram History of stress test Cardiology follow-up encounter Hypertension Kidney failure Dialysis patient Congestive heart failure Amputation of right foot Home Medications ?Medication ?Instructions ?Recorded ?Last Taken ?Type atorvastatin 80 mg tablet 80 mg PO QHS HLD 09/15/24 History cholecalciferol (vitamin D3) 25 25 mcg PO QDAY SUPPLEM ENT 09/15/24 07/12/25 History mcg (1,000 unit) tablet insulin glargine 100 unit/mL 12 unit subcut BID DM 07/12/25 History subcutaneous solution (Lantus U-100 Insulin) insulin lispro 100 unit/mL 6 unit subcut BID DM 07/13/25 History subcutaneous solution (Humalog U-100 Insulin) tamsulosin 0.4 mg capsule 0.4 mg PO QHS BPH 09/15/24 1 09/11/24 History multivitamin (Daily Multi-Vitamin 1 tab PO DAILY SUPPL EMENT 11/05/24 Unknown History tablet) aspirin 81 mg tablet,delayed 81 mg PO QDAY 10/29/25 11 /23/25 History release (Adult Aspirin Regimen) clopidogrel 75 mg tablet 75 mg PO DAILY BLOOD THINNER 06/17/25 07/12/25 History pantoprazole 20 mg tablet,delayed 20 mg PO QDAY 07/13/25 History release karlos-rissa 1 tab PO QDAY 06/17/25 Unkno wn History albuterol sulfate 90 mcg/actuation 1 inh inhalation Q4 H PRN shortness 06/30/25 07/12/25 History aerosol inhaler (Ventolin HFA) of breath or wheezing sulfamethoxazole 800 1 tab PO Q12H 06/30/25 Unkno wn History mg-trimethoprim 160 mg tablet Allergy/AdvReac Type Severity Reaction Status Date / Time aspirin Allergy Flares up Verified 07/13/25 06:26 heart Family History Other Diabetes Surgical History (Updated 06/30/25 @ 14:46 by Kirstin Aguiar) Hx of right cataract extraction Hx of left cataract extraction Hx of foot surgery History of implantable cardiac defibrillator (ICD) History of open heart surgery History of cardiac catheterization Social History Smoking Status: Former smoker Review of Systems (Anesthesia) ROS Narrative System reviewed and no additional complaints, except as documented. Physical Exam Const alert, oriented x3 and average body habitus Resp normal respiratory effort Effort and Inspection: labored Auscultation: wheezes Cardio regular rate, regular rhythm and no murmurs; Negative for diaphoretic
--- NOTE | 2025-07-13 07:25 | PCM.HP.BLA ---
History and Physical Allergies aspirin Allergy (Verified 06/17/25 15:42) Flares up heart Medications ?Medication ?Instructions ?Recorded ?Confirmed ?Type atorvastatin 80 mg tablet 80 mg PO QHS HLD 09/15/24 06/17/25 History cholecalciferol (vitamin D3) 25 25 mcg PO QDAY SUPPLEMENT 09/15/24 06/17/25 History mcg (1,000 unit) tablet insulin glargine 100 unit/mL 12 unit subcut BID DM 09/15/24 06/17/25 History subcutaneous solution (Lantus U-100 Insulin) insulin lispro 100 unit/mL 6 unit subcut BID DM 09/15/24 06/17/25 History subcutaneous solution (Humalog U-100 Insulin) tamsulosin 0.4 mg capsule 0.4 mg PO DAILY BPH 09/15/24 06/17/25 History multivitamin (Daily Multi-Vitamin 1 tab PO DAILY SUPPLEMENT 11/05/24 06/17/25 History tablet) aspirin 81 mg tablet,delayed 81 mg PO QDAY 06/17/25 06/17/25 History release (Adult Aspirin Regimen) clopidogrel 75 mg tablet 75 mg PO DAILY BLOOD THINNER 06/17/25 06/17/25 History pantoprazole 20 mg tablet,delayed 20 mg PO QDAY 06/17/25 06/17/25 History release karlos-rissa PO QDAY 06/17/25 History Have you fallen in the past year?: No PFSH Medical History Presence of combination internal cardiac defibrillator (ICD) and pacemaker MRSA (methicillin resistant staph aureus) culture positive Wears hearing aid Loss of hearing Wears glasses Walker as ambulation aid End stage chronic kidney disease History of renal dialysis History of renal disease High cholesterol Back pain Syncope Former smoker CPAP (continuous positive airway pressure) dependence Sleep apnea Leg cramps History of echocardiogram History of stress test Cardiology follow-up encounter Hypertension Kidney failure Dialysis patient Congestive heart failure Amputation of right foot Diabetes Surgical History History of open heart surgery History of cardiac catheterization Family History Other Diabetes Social History Smoking Status: Former smoker HPI HPI HPI: TAIWO GODINEZ, is a 75 M who presents to the office today for evaluation for dialysis access. He has been doing peritoneal dialysis for the past few years but since his open heart surgery earlier this year his remnant renal function has significantly decline. He has a left chest wall pacer/AICD, no prior clavicle/arm fracture/DVT/node removal. Right hand dominant. Home O2; has been on for years, increased need since heart surgery. ROS General General: Yes fatigue; No weight change, colon cancer or breast cancer HEENT HEENT: No difficulty swallowing, eye injury, eye surgery, swollen glands or hoarseness Endo Endocrine: Yes diabetes mellitus; No thyroid disease or thyroid cancer Skin Skin: No rash or changing moles Musc Musculoskeletal: Yes back problems and joint pain; No arthritis, rheumatoid arthritis or gout Cardio Cardiovascular: Yes pacemaker, heart disease, heart attack and heart stent; No murmur, atrial fibrillation, high blood pressure or palpitations Psych Psychiatric: No depression or anxiety Resp Respiratory: Yes shortness of breath, Yes sleep apnea, Yes cough (Occ), No COPD, No asthma and No emphysema Gastro Gastrointestinal: No abdominal pain, No nausea or vomiting, No diarrhea, No constipation, No blood in stool, Yes acid reflux, No hemorrhoids, No ulcers, No gallbladder problem and No black,tarry stools Ha Hematologic: Yes blood thinners, No blood disorders, No bleeding, No anemia and No blood clots Neuro Neurologic: No tingling Exam Const General: cooperative, healthy appearing, comfortable, no acute distress and well developed Nutritional Appearance: well nourished Orientation: alert, awake and oriented x3 [facility] Head: normocephalic and atraumatic Ears: hearing grossly normal bilaterally Nose: external nose normal Eyes General: appearance normal, both eyes and all related structures EOM: EOM intact bilaterally Neck Neck: normal visual inspection, full ROM, no lymphadenopathy and trachea midline Thyroid: thyroid normal Lymphatic: no lymphadenopathy noted Resp Effort & Inspection: normal respiratory effort, able to speak in complete sentences, symmetric chest movement, no audible wheezes, not labored, no stridor and no use of accessory muscles Auscultation: clear to auscultation bilaterally Cardio Rate: regular rate Rhythm: regular rhythm Heart Sounds: no murmurs Bruits: no carotid bruits Pulses: brachial pulses present and radial pulses not present Skin General: no rashes or lesions noted and no erythema Wounds: no wounds Neuro Cranial Nerves: CN's II-XI intact bilaterally and EOM intact bilaterally Speech: speech normal Motor: strength 5/5 throughout Sensory Exam: no sensory deficits noted Extremities Lower Extremity Edema: Trace: Bilateral Psych Appearance: grossly normal and well kempt Mental Status: mental status grossly normal Mood: congruent mood Speech and Movement: speech and movement normal Thought Content: normal Judgment: judgment good Coding Level of Care Code Off vis,new,level 4 Diagnoses ESRD on peritoneal dialysis N18.6; Z99.2 Assessment and Plan Assessment and Plan (1) ESRD on peritoneal dialysis: Status: Chronic Plan: -worsened renal function after cardiac surgery, difficult to obtain fluid and solute adequate clearance -vein mapping reveals bilateral basilic/upper arm cephalic adequate -with left side pacer/AICD would be at increased risk for significant edema -plan right cephalic AVF -risks/benefits/alternatives/indications discussed, agrees to proceed
[2025-07-13] MEDS: Lactated Ringers 250 ML IV (07:27)
[2025-07-13] MEDS: Cefazolin 1 GM/5 ML Vial 3 GM IV (07:35)
[2025-07-13] MEDS: Lidocaine 1% (5 ml sdv) 5 ML Vial 4 ML IV (07:41)
[2025-07-13] MEDS: Lidocaine 1% (20 ml mdv) 20 ML Vial (08:00)
[2025-07-13] MEDS: fentaNYL 100 MCG/2 ML Ampul 25 MCG IV (08:25)
[2025-07-13] MEDS: Heparin Injection 5,000 UNITS/ML Syringe 10000 UNITS IV (08:25)
--- NOTE | 2025-07-13 09:02 | EX.PCM.DISCH ---
Discharge Instructions Diet Discharge Diet: No restrictions Activity May shower in (days): 2 Lifting Restrictions: do not lift > 20 lbs with right arm for 10 days Additional Activity Instructions:: do not submerge incision for 10 days Dressing / Incision Call your doctor if your incision/area has: Sudden Increased Bleeding, Increased Pain/ Swelling, Increased Redness and Foul Smelling Discharge Call your doctor if you observe: Coldness, Increased Pain and Numbness or Tingling Remove Dressing in: 2 days Cleanse incision/area with: Soap & Water Follow Up Care Test Results: Test results from this visit will be discussed in further detail at your follow-up appointment, if applicable. Discharge Plan Admission Attending Provider: Spencer Marin Primary Care Provider: Jt Martin Instructions Print Language: Panamanian Discharge Orders/Prescriptions Prescriptions: New oxycodone 5 mg tablet 5 mg PO Q8H PRN (Reason: pain) 1 Days Qty: 3 0RF Continued atorvastatin 80 mg tablet 80 mg PO QHS cholecalciferol (vitamin D3) 25 mcg (1,000 unit) tablet 25 mcg PO QDAY insulin glargine [Lantus U-100 Insulin] 100 unit/mL solution 12 unit subcut BID insulin lispro [Humalog U-100 Insulin] 100 unit/mL solution 6 unit subcut BID tamsulosin 0.4 mg capsule 0.4 mg PO QHS Patient Comments: [NO ORIGINAL SIG] clopidogrel 75 mg tablet 75 mg PO DAILY pantoprazole 20 mg tablet,delayed release (DR/EC) 20 mg PO QDAY aspirin [Adult Aspirin Regimen] 81 mg tablet,delayed release (DR/EC) 81 mg PO QDAY karlos-rissa 1 tab PO QDAY sulfamethoxazole-trimethoprim 800-160 mg tablet 1 tab PO Q12H albuterol sulfate [Ventolin HFA] 90 mcg/actuation HFA aerosol inhaler 1 inh inhalation Q4H PRN (Reason: shortness of breath or wheezing) multivitamin [Daily Multi-Vitamin] Tablet 1 tab PO DAILY Referrals / Follow Up: Jt Martin MD [Primary Care Provider, Family Practice] Disposition Disposition (needs filled in before D/C Order can be placed): Home, Self Care
--- NOTE | 2025-07-13 09:31 | PCM.POST.ANE ---
Anesthesia: Postop Eval I Current Vital Signs Temperature: 97.7 F Pulse Rate: 90 Blood Pressure: 90/39 (pt placed in t-arzate position) Respiratory Rate: 20 Pulse Ox: 96 Oxygen Delivery Method: Nasal Cannula Oxygen Flow Rate (L/min): 2 Assessment Airway patent: Yes Spontaneous unlabored respirations: Yes Mental status: Awake and Calm nausea: No Vomiting: No Anesthesia Complication: No Fluid Hydration Crystalloid volume administer (ml): 250 Total IV fluid infused: 250 Progress Note Post-operative progress note: pt placed in t-arzate, will continue to monitor BP Anesthesia document: Postop Eval 1 completed: Yes
--- NOTE | 2025-07-13 09:51 | SUR.PHASEI ---
PER DR. AVILA HOLD ALBUMIN FOR NOW AND GIVE HIM SOME MORE FLUIDS SINCE HE IS HAVING DIALYSIS TODAY.
[2025-07-13] MEDS: Albumin Human 25% (100 mL) 25 GM/100 ML BAG IV (10:39)
--- NOTE | 2025-07-13 16:40 | POSTOPAN2_ITS ---
Anesthesia Postop Eval I Sum Postop Eval Completion status Anesthesia document: Postop Eval 1 completed: Yes Anesthesia Postop Eval I Summary Anesthesia Postop Eval I Summary: Anesthesia Postop Eval I: Assessment Summary Airway patent Yes 07/13/25 09:32 LABOR RELATIONS DIRECTOR.ANAHIOBTono Spontaneous unlabored Yes 07/13/25 09:32 LABOR RELATIONS DIRECTORJAMES respirations Mental status Awake,Calm 07/13/25 09:32 LABOR RELATIONS DIRECTOR.CAREY nausea No 07/13/25 09:32 LABOR RELATIONS DIRECTOR.CAREY Vomiting No 07/13/25 09:32 LABOR RELATIONS DIRECTORJAMES Anesthesia Postop Eval I: Fluid Summary Crystalloid volume administer 250 07/13/25 09:32 LABOR RELATIONS DIRECTOR.CAREY (ml) Colloids volume administered ( ml) Blood Product volume administered (ml) Total IV fluid infused 250 07/13/25 09:32 LABOR RELATIONS DIRECTORJAMES Anesthesia Postop Eval I: Summary Notes Anesthesia Complication No 07/13/25 09:32 NOE Anesthesia Complication Comment: Post-operative progress note pt placed in t- 07/13/25 09:32 LABOR RELATIONS DIRECTOR.CAREY arzate, will continue to monitor BP Anesthesia: Postop Eval II Evaluation Mental status: Awake Pain Level: 0 nausea: No Vomiting: No Progress Note Post-operative progress note: Patient dizzy in phase 2, but not hypotensive, VSS. Discussed with Dr. Marin, who recommended monitoring. Patient was able to eventually ambulate without dizziness, thus sent home so PD could occur. Patient given RTC instructions including to check BP at home, and to return to ED if any new symptoms arise, or if dizziness recurs. Complications Anesthesia Complication: No
--- NOTE | 2025-07-13 17:20 | PCM.OPRPT ---
Operative Report (Standard) Operative Information Date of Procedure: 07/13/25 Pre-Operative Diagnosis: End-stage renal disease, currently on peritoneal dialysis Post-Operative Diagnosis: Same Surgery/Procedure Performed: Right upper arm radiocephalic fistula creation analytical research chemist: Yes Regulatory Compliance Officer: Anselmo Castillo Tasks completed by fire assistant: Opening, Closing, Opening & closing, Hemostasis: Tie, Hemostasis: Electrocautery and Retracting Type of Anesthesia: Block,Regional, Local MAC, Local and MAC RN Documented Start/Stop Times: Operation Date: 07/13/25 07:30 Case Time Into Pre-Op 07/13/25 06:02 Out of Pre-Op 07/13/25 07:26 Anesthesia Start 07/13/25 07:27 Into Room 07/13/25 07:27 Procedure Start 07/13/25 07:55 Procedure End 07/13/25 09:12 Anesthesia End 07/13/25 09:17 Out of Room 07/13/25 09:17 Into Recovery 07/13/25 09:25 Out of Recovery 07/13/25 12:33 Into Phase II Recovery 07/13/25 12:34 Out of Phase II 07/13/25 15:10 Procedure Start Time: 07:55 Procedure Stop Time: 09:10 Select all DRAINS/GRAFTS/IMPLANTS that apply: None Estimated Blood Loss: 5 Specimen collected: No Description of surgery: HPI: Patient is a 75-year-old male currently on peritoneal dialysis. After prior open heart surgery he has had diminished ability to clear volume and solutes so he presents now for fistula creation with a plan transition to hemodialysis. Description of procedure: Upon obtaining informed consent and verification correct patient procedure site the patient was taken the operating where he was administered a regional block and sedation by anesthesia. He was then positioned prepped and draped in usual sterile fashion and time was performed. Ultrasound used to evaluate the upper arm vasculature and the cephalic vein was patent and compressible throughout with satisfactory caliber and continuous to the outflow from the arm. Skin overlying the vessels distal to the antecubital crease with anesthetized with 1% lidocaine and transverse incision made. Bovie was used to dissect down through subcutaneous tissue until the vein was encountered. Self-retaining retractors and put in position and sharp dissection used to dissect the cephalic vein to distal extent to allow reach to the brachial artery. Further dissection was carried down to the fascia which was incised and cruciate figuration exposing the brachial artery. Sharp dissection was used to dissect free the artery and its bifurcation with care taken to identify and protect the adjacent nerve and vein structures. Writing was used to place a vessel loop around the distal brachial artery as well as the radial artery and sidebranches individually. The patient was then heparinized allowed to circulate for 3 minutes. Vein branches were then ligated with silk ties and divided and the cephalic vein ligated distally in the field and marked to maintain orientation. This was then divided and dilated up to 3-1/2 mm and flushed with heparinized saline. The radial artery was then occluded with Vesseloops and longitudinal arteriotomy created with 11 blade extended with Zarco scissors. The vein was then beveled to match the arteriotomy and anastomosis performed using a 6-0 Prolene in a running fashion. Prior to complete suture line vessels are backbled and after pulling the suture line clamps removed and satisfactory stasis was observed. There is palpable thrill in the fistula and monophasic signal in the radial artery at the wrist with normal capillary refill in all of the digits. Heparin was then reversed with protamine and incision closed with 3-0 Vicryl, 4-0 Monocryl and Dermabond for the skin. At the inclusion of case patient was awakened from anesthesia taken to the recovery room with anticipated discharge to home. Surgical Findings: See above Complications Complications: No
== END 2025-07-13 15:10 | disposition home or self-care (01) ==
LOC: SDC 05:57 → AC 05:58
PROVIDERS: PCP Family Medicine; Referring Provider Surgery Trauma Surgery; Visit Provider Surgery Trauma Surgery
PROC: (CPT 36818; principal; 2025-07-13 07:15)
DX: Z49.01 Encounter for fitting and adjustment of extracorporeal dialysis catheter (principal); I13.2 Hypertensive heart and chronic kidney disease with heart failure and with stage 5 chronic kidney disease, or end stage renal disease; N18.6 End stage renal disease; I50.9 Heart failure, unspecified; J44.9 Chronic obstructive pulmonary disease, unspecified; E11.22 Type 2 diabetes mellitus with diabetic chronic kidney disease; Z79.4 Long term (current) use of insulin; E78.00 Pure hypercholesterolemia, unspecified; Z87.891 Personal history of nicotine dependence; Z95.810 Presence of automatic (implantable) cardiac defibrillator; Z79.82 Long term (current) use of aspirin; Z79.899 Other long term (current) drug therapy; Z79.01 Long term (current) use of anticoagulants; K21.9 Gastro-esophageal reflux disease without esophagitis; Z95.1 Presence of aortocoronary bypass graft
CPT/HCPCS: 36818; 01844; 82962; 94640; A4648; P9047; J2405